=== PATIENT | male | born 1965 | race Caucasian/White ===

== ENCOUNTER → 2017-10-05 09:55 | Outpatient (CLI) | payer MEDICARE, MEDICAID, SELFPAY ==
[2017-10-05 10:22] LABS: Absolute Lymphocyte Count 0.88 X10^3/ul (0.83-4.51); Absolute Neutrophil Count 2.2 X10^3/uL (2.0-7.7); Basophil# 0.04 X10^3/uL; Basophil% 1.1 % (0-1); Eosinophil# 0.09 X10^3/uL; Eosinophils% 2.5 % (0-5); Hematocrit 43.4 % (40-54); Hemoglobin 14.8 g/dl (13.0-16.5); Lymphocyte # 0.88 X10^3/ul (4.0); Lymphocyte % 24.4 % (19-41); Mean Corp Hgb Conc 34.1 g/gl (32-36); Mean Corpuscular Hgb 30.1 pg (27.0-32.0); Mean Corpuscular Volume 88.4 fL (80-94); Mean Platelet Vol. 11.2 fl (6.2-12.0); Monocyte# 0.35 X10^3/uL; Monocyte% 9.7 % (0-10); Neutrophil # 2.24 X10^3/uL (2.7-7.7); Platelet Count 135 K/mm3 (150-450); RBC Distribution Width SD 44.4 fl (35.1-43.9); Red Blood Count 4.91 M/mm3 (4.6-6.2); White Blood Count 3.6 K/mm3 (4.4-11.0)
[2017-10-05 10:24] LABS: POSITIVE COUNT NO; POSITIVE DIFFERENTIAL NO; POSITIVE MORPHOLOGY NO
== END ==
PROVIDERS: Family Provider Family Medicine; PCP Family Medicine; Visit Provider Psychiatry & Neurology Child & Adolescent Psychiatry
DX: F84.0 Autistic disorder (principal); F71 Moderate intellectual disabilities; F91.9 Conduct disorder, unspecified
CPT/HCPCS: 36415; 85025

== ENCOUNTER 2017-11-06 08:41 | Outpatient (RCR) | payer MEDICARE, MEDICAID, SELFPAY ==
[2017-11-06 09:45] LABS: Absolute Lymphocyte Count 1.09 X10^3/ul (0.83-4.51); Absolute Neutrophil Count 2.7 X10^3/uL (2.0-7.7); Basophil# 0.07 X10^3/uL; Basophil% 1.6 % (0-1); Eosinophil# 0.07 X10^3/uL; Eosinophils% 1.6 % (0-5); Hematocrit 45.7 % (40-54); Hemoglobin 15.3 g/dl (13.0-16.5); Lymphocyte # 1.09 X10^3/ul (4.0); Lymphocyte % 24.7 % (19-41); Mean Corp Hgb Conc 33.5 g/gl (32-36); Mean Corpuscular Hgb 29.8 pg (27.0-32.0); Mean Corpuscular Volume 88.9 fL (80-94); Mean Platelet Vol. 11.3 fl (6.2-12.0); Monocyte% 11.3 % (0-10); Neutrophil # 2.67 X10^3/uL (2.7-7.7); Neutrophil % 60.6 % (47-70); Platelet Count 146 K/mm3 (150-450); RBC Distribution Width CV 14.4 % (11.6-14.6); RBC Distribution Width SD 46.1 fl (35.1-43.9); Red Blood Count 5.14 M/mm3 (4.6-6.2); White Blood Count 4.4 K/mm3 (4.4-11.0)
[2017-11-06 09:46] LABS: POSITIVE COUNT NO; POSITIVE DIFFERENTIAL NO; POSITIVE MORPHOLOGY NO
== END 2017-11-06 09:00 | disposition home or self-care (01) ==
LOC: LAB 08:41
PROVIDERS: Family Provider Family Medicine; PCP Family Medicine; Visit Provider Psychiatry & Neurology Child & Adolescent Psychiatry
DX: Z51.81 Encounter for therapeutic drug level monitoring (principal); F84.0 Autistic disorder
CPT/HCPCS: 36415; 85025

== ENCOUNTER 2017-12-10 14:07 | Outpatient (RCR) | payer MEDICARE, MEDICAID, SELFPAY ==
[2017-12-10 14:42] LABS: Absolute Lymphocyte Count 1.29 X10^3/ul (0.83-4.51); Absolute Neutrophil Count 2.8 X10^3/uL (2.0-7.7); Basophil# 0.02 X10^3/uL; Basophil% 0.4 % (0-1); Eosinophil# 0.05 X10^3/uL; Eosinophils% 1.1 % (0-5); Hematocrit 45.2 % (40-54); Lymphocyte # 1.29 X10^3/ul (4.0); Lymphocyte % 28.5 % (19-41); Mean Corp Hgb Conc 33.2 g/gl (32-36); Mean Corpuscular Hgb 29.9 pg (27.0-32.0); Mean Platelet Vol. 10.6 fl (6.2-12.0); Monocyte# 0.34 X10^3/uL; Monocyte% 7.5 % (0-10); Neutrophil # 2.81 X10^3/uL (2.7-7.7); Neutrophil % 62.3 % (47-70); Platelet Count 176 K/mm3 (150-450); RBC Distribution Width SD 45.6 fl (35.1-43.9); Red Blood Count 5.02 M/mm3 (4.6-6.2); White Blood Count 4.5 K/mm3 (4.4-11.0)
[2017-12-10 14:43] LABS: POSITIVE COUNT NO; POSITIVE DIFFERENTIAL NO; POSITIVE MORPHOLOGY NO
[2017-12-10 15:06] LABS: AST(SGOT) 38 U/L (15-37); Alanine Aminotransfer ALT/SGPT 94 U/L (16-61); Albumin, Serum 3.9 g/dL (3.2-5.0); Alkaline Phosphatase 132 U/L (45-117); Anion Gap 5 (5-15); BUN 16 mg/dL (7-18); BUN/Creat Ratio 17.3 RATIO (10-20); Calcium,Total 9.1 mg/dL (8.5-10.1); Chloride 101 mmol/L (98-107); Creatinine, Serum 0.93 mg/dL (0.70-1.30); EST Glomerular Filtration Rate 91 mL/min (>60); Est Glom Filt Rate - Afr Amer 110 mL/min (>60); Glucose 105 mg/dL (74-106); Potassium 4.1 mmol/L (3.5-5.1); Protein, Total 7.9 g/dL (6.4-8.2); Sodium Level 140 mmol/L (136-145); Valproic Acid (Depakene) Level 43 ug/mL (50-100)
== END 2017-12-10 15:00 | disposition home or self-care (01) ==
LOC: LAB 14:07
PROVIDERS: Family Provider Family Medicine; PCP Family Medicine; Visit Provider Psychiatry & Neurology Child & Adolescent Psychiatry
DX: Z51.81 Encounter for therapeutic drug level monitoring (principal); F84.0 Autistic disorder
CPT/HCPCS: 36415; 80053; 80164; 85025

== ENCOUNTER 2018-01-14 15:32 | Outpatient (RCR) | payer MEDICARE, MEDICAID, SELFPAY ==
[2018-01-14 16:12] LABS: Absolute Neutrophil Count 3.3 X10^3/uL (2.0-7.7); Basophil# 0.05 X10^3/uL; Basophil% 0.9 % (0-1); Eosinophil# 0.12 X10^3/uL; Eosinophils% 2.2 % (0-5); Hematocrit 43.8 % (40-54); Hemoglobin 14.5 g/dl (13.0-16.5); Lymphocyte % 25.7 % (19-41); Mean Corp Hgb Conc 33.1 g/gl (32-36); Mean Corpuscular Hgb 29.4 pg (27.0-32.0); Mean Corpuscular Volume 88.8 fL (80-94); Mean Platelet Vol. 10.7 fl (6.2-12.0); Monocyte# 0.62 X10^3/uL; Monocyte% 11.4 % (0-10); Neutrophil # 3.25 X10^3/uL (2.7-7.7); Neutrophil % 59.6 % (47-70); POSITIVE COUNT NO; POSITIVE DIFFERENTIAL NO; POSITIVE MORPHOLOGY NO; Platelet Count 155 K/mm3 (150-450); RBC Distribution Width CV 13.7 % (11.6-14.6); RBC Distribution Width SD 44.6 fl (35.1-43.9); Red Blood Count 4.93 M/mm3 (4.6-6.2); White Blood Count 5.5 K/mm3 (4.4-11.0)
== END 2018-01-14 16:00 | disposition home or self-care (01) ==
LOC: LAB 15:32
PROVIDERS: Family Provider Family Medicine; PCP Family Medicine; Visit Provider Psychiatry & Neurology Child & Adolescent Psychiatry
DX: F84.0 Autistic disorder (principal); Z51.81 Encounter for therapeutic drug level monitoring
CPT/HCPCS: 36415; 85025

== ENCOUNTER 2018-02-08 09:04 | Outpatient (RCR) | payer MEDICARE, MEDICAID, SELFPAY ==
[2018-02-08 10:50] LABS: Absolute Lymphocyte Count 0.56 X10^3/ul (0.83-4.51); Basophil# 0.02 X10^3/uL; Basophil% 0.2 % (0-1); Eosinophil# 0.04 X10^3/uL; Eosinophils% 0.3 % (0-5); Hematocrit 44.4 % (40-54); Hemoglobin 15.2 g/dl (13.0-16.5); Lymphocyte # 0.56 X10^3/ul (4.0); Lymphocyte % 4.5 % (19-41); Mean Corp Hgb Conc 34.2 g/gl (32-36); Mean Corpuscular Hgb 29.7 pg (27.0-32.0); Mean Corpuscular Volume 86.9 fL (80-94); Mean Platelet Vol. 11.3 fl (6.2-12.0); Monocyte# 0.79 X10^3/uL; Monocyte% 6.4 % (0-10); Neutrophil % 88.4 % (47-70); Platelet Count 163 K/mm3 (150-450); RBC Distribution Width CV 13.4 % (11.6-14.6); RBC Distribution Width SD 42.2 fl (35.1-43.9); Red Blood Count 5.11 M/mm3 (4.6-6.2); White Blood Count 12.4 K/mm3 (4.4-11.0)
[2018-02-08 10:56] LABS: Differential Indicated SCAN CRITERIA MET; POSITIVE COUNT NO; POSITIVE DIFFERENTIAL YES; POSITIVE MORPHOLOGY NO
== END 2018-02-08 10:00 | disposition home or self-care (01) ==
LOC: LAB 09:04
PROVIDERS: Family Provider Family Medicine; PCP Family Medicine; Visit Provider Psychiatry & Neurology Child & Adolescent Psychiatry
DX: F84.0 Autistic disorder (principal); F91.9 Conduct disorder, unspecified; F71 Moderate intellectual disabilities; Z51.81 Encounter for therapeutic drug level monitoring
CPT/HCPCS: 36415; 85025

== ENCOUNTER 2018-03-15 08:01 | Outpatient (RCR) | payer MEDICARE, MEDICAID, SELFPAY ==
[2018-03-15 09:19] LABS: Absolute Lymphocyte Count 1.01 X10^3/ul (0.83-4.51); Absolute Neutrophil Count 3.8 X10^3/uL (2.0-7.7); Basophil# 0.03 X10^3/uL; Basophil% 0.6 % (0-1); Eosinophil# 0.14 X10^3/uL; Eosinophils% 2.6 % (0-5); Hematocrit 44.5 % (40-54); Hemoglobin 14.8 g/dl (13.0-16.5); Lymphocyte # 1.01 X10^3/ul (4.0); Lymphocyte % 18.7 % (19-41); Mean Corp Hgb Conc 33.3 g/gl (32-36); Mean Corpuscular Hgb 29.3 pg (27.0-32.0); Mean Corpuscular Volume 88.1 fL (80-94); Mean Platelet Vol. 10.6 fl (6.2-12.0); Monocyte# 0.43 X10^3/uL; Monocyte% 7.9 % (0-10); Neutrophil # 3.79 X10^3/uL (2.7-7.7); Platelet Count 143 K/mm3 (150-450); RBC Distribution Width CV 13.7 % (11.6-14.6); RBC Distribution Width SD 43.8 fl (35.1-43.9); Red Blood Count 5.05 M/mm3 (4.6-6.2); White Blood Count 5.4 K/mm3 (4.4-11.0)
[2018-03-15 09:20] LABS: POSITIVE COUNT NO; POSITIVE DIFFERENTIAL NO; POSITIVE MORPHOLOGY NO
[2018-03-15 09:49] LABS: Valproic Acid (Depakene) Level 39 ug/mL (50-100)
[2018-03-15 09:50] LABS: ALB/GLOB Ratio 0.9 RATIO (0.9-2.4); AST(SGOT) 23 U/L (15-37); Alanine Aminotransfer ALT/SGPT 30 U/L (16-61); Albumin, Serum 3.7 g/dL (3.2-5.0); Alkaline Phosphatase 124 U/L (45-117); Anion Gap 5 (5-15); BUN 12 mg/dL (7-18); BUN/Creat Ratio 15.5 RATIO (10-20); Calcium,Total 8.8 mg/dL (8.5-10.1); Chloride 104 mmol/L (98-107); Creatinine, Serum 0.78 mg/dL (0.70-1.30); EST Glomerular Filtration Rate 112 mL/min (>60); Est Glom Filt Rate - Afr Amer 135 mL/min (>60); Globulin 4.2 g/dL (2.2-4.2); Glucose 83 mg/dL (74-106); Potassium 4.2 mmol/L (3.5-5.1); Protein, Total 7.9 g/dL (6.4-8.2); Sodium Level 139 mmol/L (136-145)
== END 2018-03-15 09:00 | disposition home or self-care (01) ==
LOC: LAB 08:01
PROVIDERS: Family Provider Family Medicine; PCP Family Medicine; Visit Provider Psychiatry & Neurology Child & Adolescent Psychiatry
DX: F84.0 Autistic disorder (principal); F91.9 Conduct disorder, unspecified; F71 Moderate intellectual disabilities; Z51.81 Encounter for therapeutic drug level monitoring
CPT/HCPCS: 36415; 80053; 80164; 85025

== ENCOUNTER 2018-04-03 12:24 | Outpatient (RCR) | payer MEDICARE, MEDICAID, SELFPAY ==
[2018-04-03 13:09] LABS: Absolute Lymphocyte Count 1.02 X10^3/ul (0.83-4.51); Absolute Neutrophil Count 2.7 X10^3/uL (2.0-7.7); Basophil# 0.02 X10^3/uL; Basophil% 0.5 % (0-1); Eosinophil# 0.12 X10^3/uL; Eosinophils% 2.8 % (0-5); Hematocrit 43.4 % (40-54); Lymphocyte # 1.02 X10^3/ul (4.0); Lymphocyte % 24.1 % (19-41); Mean Corp Hgb Conc 32.3 g/gl (32-36); Mean Corpuscular Hgb 28.9 pg (27.0-32.0); Mean Corpuscular Volume 89.5 fL (80-94); Mean Platelet Vol. 10.1 fl (6.2-12.0); Monocyte# 0.34 X10^3/uL; Neutrophil # 2.73 X10^3/uL (2.7-7.7); Neutrophil % 64.4 % (47-70); Platelet Count 145 K/mm3 (150-450); RBC Distribution Width CV 13.8 % (11.6-14.6); RBC Distribution Width SD 45.4 fl (35.1-43.9); Red Blood Count 4.85 M/mm3 (4.6-6.2); White Blood Count 4.2 K/mm3 (4.4-11.0)
[2018-04-03 13:11] LABS: POSITIVE COUNT NO; POSITIVE DIFFERENTIAL NO; POSITIVE MORPHOLOGY NO
== END 2018-04-03 13:30 | disposition home or self-care (01) ==
LOC: LAB 12:24
PROVIDERS: Family Provider Family Medicine; PCP Family Medicine; Visit Provider Psychiatry & Neurology Child & Adolescent Psychiatry
DX: F84.0 Autistic disorder (principal); F91.9 Conduct disorder, unspecified; F71 Moderate intellectual disabilities
CPT/HCPCS: 36415; 85025

== ENCOUNTER 2018-04-25 13:58 | Outpatient (RCR) | payer MEDICARE, MEDICAID, SELFPAY | END 2018-04-25 15:00 | disposition home or self-care (01) | LOC: LAB 13:58 | PROVIDERS: Family Provider Family Medicine; PCP Family Medicine; Visit Provider Psychiatry & Neurology Child & Adolescent Psychiatry | DX: F84.0 Autistic disorder (principal); F91.9 Conduct disorder, unspecified; F71 Moderate intellectual disabilities ==

== ENCOUNTER 2018-04-25 13:58 | Outpatient (RCR) | payer MEDICARE, MEDICAID, SELFPAY ==
[2018-04-25 15:09] LABS: Absolute Lymphocyte Count 1.09 X10^3/ul (0.83-4.51); Absolute Neutrophil Count 3.7 X10^3/uL (2.0-7.7); Basophil# 0.02 X10^3/uL; Basophil% 0.4 % (0-1); Eosinophil# 0.11 X10^3/uL; Eosinophils% 2.1 % (0-5); Hemoglobin 14.9 g/dl (13.0-16.5); Lymphocyte # 1.09 X10^3/ul (4.0); Mean Corp Hgb Conc 32.4 g/gl (32-36); Mean Corpuscular Hgb 29.2 pg (27.0-32.0); Mean Corpuscular Volume 90.2 fL (80-94); Mean Platelet Vol. 10.5 fl (6.2-12.0); Monocyte# 0.21 X10^3/uL; Monocyte% 4.1 % (0-10); Neutrophil # 3.74 X10^3/uL (2.7-7.7); Neutrophil % 72.2 % (47-70); Platelet Count 170 K/mm3 (150-450); RBC Distribution Width CV 13.7 % (11.6-14.6); RBC Distribution Width SD 44.8 fl (35.1-43.9); White Blood Count 5.2 K/mm3 (4.4-11.0)
[2018-04-25 15:14] LABS: POSITIVE COUNT NO; POSITIVE DIFFERENTIAL NO; POSITIVE MORPHOLOGY NO
[2018-04-25 15:38] LABS: Valproic Acid (Depakene) Level 52 ug/mL (50-100)
[2018-04-25 15:44] LABS: ALB/GLOB Ratio 0.9 RATIO (0.9-2.4); AST(SGOT) 19 U/L (15-37); Alanine Aminotransfer ALT/SGPT 24 U/L (16-61); Albumin, Serum 3.9 g/dL (3.2-5.0); Alkaline Phosphatase 138 U/L (45-117); Anion Gap 7 (5-15); BUN 12 mg/dL (7-18); BUN/Creat Ratio 13.8 RATIO (10-20); Calcium,Total 9.3 mg/dL (8.5-10.1); Chloride 100 mmol/L (98-107); Creatinine, Serum 0.87 mg/dL (0.70-1.30); EST Glomerular Filtration Rate 98 mL/min (>60); Est Glom Filt Rate - Afr Amer 118 mL/min (>60); Globulin 4.3 g/dL (2.2-4.2); Glucose 112 mg/dL (74-106); Protein, Total 8.2 g/dL (6.4-8.2); Sodium Level 142 mmol/L (136-145)
[2018-05-17 09:51] LABS: Absolute Lymphocyte Count 1.08 X10^3/ul (0.83-4.51); Absolute Neutrophil Count 2.6 X10^3/uL (2.0-7.7); Basophil# 0.04 X10^3/uL; Basophil% 0.9 % (0-1); Eosinophil# 0.12 X10^3/uL; Eosinophils% 2.7 % (0-5); Hematocrit 44.3 % (40-54); Hemoglobin 14.8 g/dl (13.0-16.5); Lymphocyte # 1.08 X10^3/ul (4.0); Lymphocyte % 24.4 % (19-41); Mean Corp Hgb Conc 33.4 g/gl (32-36); Mean Corpuscular Hgb 29.8 pg (27.0-32.0); Mean Corpuscular Volume 89.1 fL (80-94); Monocyte# 0.53 X10^3/uL; Neutrophil # 2.64 X10^3/uL (2.7-7.7); Neutrophil % 59.8 % (47-70); Platelet Count 142 K/mm3 (150-450); RBC Distribution Width SD 45.7 fl (35.1-43.9); Red Blood Count 4.97 M/mm3 (4.6-6.2); White Blood Count 4.4 K/mm3 (4.4-11.0)
[2018-05-17 09:52] LABS: POSITIVE COUNT NO; POSITIVE DIFFERENTIAL NO; POSITIVE MORPHOLOGY NO
[2018-05-17 10:15] LABS: AST(SGOT) 20 U/L (15-37); Alanine Aminotransfer ALT/SGPT 24 U/L (16-61); Albumin, Serum 3.8 g/dL (3.2-5.0); Alkaline Phosphatase 122 U/L (45-117); Anion Gap 6 (5-15); BUN 7 mg/dL (7-18); BUN/Creat Ratio 7.9 RATIO (10-20); Calcium,Total 8.7 mg/dL (8.5-10.1); Chloride 104 mmol/L (98-107); Creatinine, Serum 0.89 mg/dL (0.70-1.30); EST Glomerular Filtration Rate 95 mL/min (>60); Est Glom Filt Rate - Afr Amer 115 mL/min (>60); Glucose 94 mg/dL (74-106); Potassium 4.2 mmol/L (3.5-5.1); Protein, Total 7.8 g/dL (6.4-8.2); Sodium Level 142 mmol/L (136-145)
[2018-05-17 10:20] LABS: Valproic Acid (Depakene) Level 41 ug/mL (50-100)
== END 2018-08-23 09:48 | disposition home or self-care (01) ==
LOC: LAB 13:58
PROVIDERS: Family Provider Family Medicine; PCP Family Medicine; Visit Provider Psychiatry & Neurology Child & Adolescent Psychiatry
DX: F84.0 Autistic disorder (principal); F91.9 Conduct disorder, unspecified; F71 Moderate intellectual disabilities
CPT/HCPCS: 36415; 80053; 80164; 85025

== ENCOUNTER 2018-06-20 14:03 | Outpatient (RCR) | payer MEDICARE, MEDICAID, SELFPAY ==
[2018-05-30 11:09] LABS: Absolute Lymphocyte Count 0.83 X10^3/ul (0.83-4.51); Absolute Neutrophil Count 4.1 X10^3/uL (2.0-7.7); Basophil# 0.01 X10^3/uL; Basophil% 0.2 % (0-1); Eosinophil# 0.09 X10^3/uL; Eosinophils% 1.6 % (0-5); Hematocrit 45.2 % (40-54); Hemoglobin 14.8 g/dl (13.0-16.5); Lymphocyte # 0.83 X10^3/ul (4.0); Mean Corp Hgb Conc 32.7 g/gl (32-36); Mean Corpuscular Hgb 29.2 pg (27.0-32.0); Mean Corpuscular Volume 89.2 fL (80-94); Mean Platelet Vol. 10.7 fl (6.2-12.0); Monocyte# 0.53 X10^3/uL; Monocyte% 9.5 % (0-10); Neutrophil # 4.07 X10^3/uL (2.7-7.7); Neutrophil % 73.3 % (47-70); Platelet Count 160 K/mm3 (150-450); RBC Distribution Width CV 13.8 % (11.6-14.6); RBC Distribution Width SD 44.9 fl (35.1-43.9); Red Blood Count 5.07 M/mm3 (4.6-6.2); White Blood Count 5.6 K/mm3 (4.4-11.0)
[2018-05-30 11:14] LABS: POSITIVE COUNT NO; POSITIVE DIFFERENTIAL NO; POSITIVE MORPHOLOGY NO
[2018-06-20 15:24] LABS: Absolute Lymphocyte Count 1.01 X10^3/ul (0.83-4.51); Absolute Neutrophil Count 2.7 X10^3/uL (2.0-7.7); Basophil# 0.03 X10^3/uL; Basophil% 0.7 % (0-1); Eosinophil# 0.09 X10^3/uL; Eosinophils% 2.1 % (0-5); Hematocrit 43.6 % (40-54); Hemoglobin 14.8 g/dl (13.0-16.5); Lymphocyte # 1.01 X10^3/ul (4.0); Lymphocyte % 23.3 % (19-41); Mean Corp Hgb Conc 33.9 g/gl (32-36); Mean Corpuscular Hgb 29.7 pg (27.0-32.0); Mean Corpuscular Volume 87.6 fL (80-94); Mean Platelet Vol. 10.8 fl (6.2-12.0); Monocyte# 0.53 X10^3/uL; Monocyte% 12.2 % (0-10); Neutrophil # 2.66 X10^3/uL (2.7-7.7); Neutrophil % 61.5 % (47-70); POSITIVE COUNT NO; POSITIVE DIFFERENTIAL NO; POSITIVE MORPHOLOGY NO; Platelet Count 171 K/mm3 (150-450); RBC Distribution Width CV 13.8 % (11.6-14.6); RBC Distribution Width SD 43.9 fl (35.1-43.9); Red Blood Count 4.98 M/mm3 (4.6-6.2); White Blood Count 4.3 K/mm3 (4.4-11.0)
[2018-06-20 16:04] LABS: Valproic Acid (Depakene) Level 58 ug/mL (50-100)
[2018-06-20 16:06] LABS: AST(SGOT) 19 U/L (15-37); Alanine Aminotransfer ALT/SGPT 25 U/L (16-61); Albumin, Serum 3.8 g/dL (3.2-5.0); Alkaline Phosphatase 144 U/L (45-117); Anion Gap 7 (5-15); BUN 13 mg/dL (7-18); Calcium,Total 8.9 mg/dL (8.5-10.1); Chloride 103 mmol/L (98-107); Creatinine, Serum 0.93 mg/dL (0.70-1.30); EST Glomerular Filtration Rate 90 mL/min (>60); Est Glom Filt Rate - Afr Amer 109 mL/min (>60); Glucose 70 mg/dL (74-106); Potassium 4.3 mmol/L (3.5-5.1); Protein, Total 7.8 g/dL (6.4-8.2); Sodium Level 139 mmol/L (136-145)
== END 2018-06-20 15:00 | disposition home or self-care (01) ==
LOC: LAB 14:03
PROVIDERS: Family Provider Family Medicine; PCP Family Medicine; Visit Provider Psychiatry & Neurology Child & Adolescent Psychiatry
DX: F84.0 Autistic disorder (principal); F91.9 Conduct disorder, unspecified; F71 Moderate intellectual disabilities
CPT/HCPCS: 36415; 80053; 80164; 85025

== ENCOUNTER 2018-07-24 15:29 | Outpatient (RCR) | payer MEDICARE, MEDICAID, SELFPAY ==
[2018-07-09 09:32] LABS: Hematocrit 48.5 % (40-54); Hemoglobin 16.2 g/dl (13.0-16.5); Mean Corp Hgb Conc 33.4 g/gl (32-36); Mean Corpuscular Hgb 29.6 pg (27.0-32.0); Mean Corpuscular Volume 88.5 fL (80-94); Platelet Count 139 K/mm3 (150-450); RBC Distribution Width CV 13.6 % (11.6-14.6); RBC Distribution Width SD 44.2 fl (35.1-43.9); Red Blood Count 5.48 M/mm3 (4.6-6.2); White Blood Count 5.5 K/mm3 (4.4-11.0)
[2018-07-09 09:34] LABS: Scan Indicated on CBC? Y/N NO
[2018-07-09 10:06] LABS: Valproic Acid (Depakene) Level 38 ug/mL (50-100)
[2018-07-09 10:09] LABS: AST(SGOT) 15 U/L (15-37); Alanine Aminotransfer ALT/SGPT 26 U/L (16-61); Albumin, Serum 3.9 g/dL (3.2-5.0); Alkaline Phosphatase 147 U/L (45-117); Anion Gap 8 (5-15); BUN 10 mg/dL (7-18); BUN/Creat Ratio 10.9 RATIO (10-20); Calcium,Total 9.1 mg/dL (8.5-10.1); Chloride 100 mmol/L (98-107); Creatinine, Serum 0.92 mg/dL (0.70-1.30); EST Glomerular Filtration Rate 92 mL/min (>60); Est Glom Filt Rate - Afr Amer 111 mL/min (>60); Globulin 3.9 g/dL (2.2-4.2); Glucose 97 mg/dL (74-106); Potassium 4.2 mmol/L (3.5-5.1); Protein, Total 7.8 g/dL (6.4-8.2); Sodium Level 139 mmol/L (136-145)
[2018-07-12 16:32] LABS: Absolute Lymphocyte Count 1.23 X10^3/ul (0.83-4.51); Absolute Neutrophil Count 3.1 X10^3/uL (2.0-7.7); Basophil# 0.03 X10^3/uL; Basophil% 0.6 % (0-1); Eosinophil# 0.11 X10^3/uL; Eosinophils% 2.2 % (0-5); Hematocrit 43.8 % (40-54); Hemoglobin 14.6 g/dl (13.0-16.5); Lymphocyte # 1.23 X10^3/ul (4.0); Lymphocyte % 24.3 % (19-41); Mean Corp Hgb Conc 33.3 g/gl (32-36); Mean Corpuscular Hgb 29.7 pg (27.0-32.0); Mean Corpuscular Volume 89.2 fL (80-94); Monocyte# 0.54 X10^3/uL; Monocyte% 10.7 % (0-10); Neutrophil # 3.14 X10^3/uL (2.7-7.7); Platelet Count 155 K/mm3 (150-450); RBC Distribution Width CV 13.7 % (11.6-14.6); RBC Distribution Width SD 44.2 fl (35.1-43.9); Red Blood Count 4.91 M/mm3 (4.6-6.2); White Blood Count 5.1 K/mm3 (4.4-11.0)
[2018-07-12 16:44] LABS: POSITIVE COUNT NO; POSITIVE DIFFERENTIAL NO; POSITIVE MORPHOLOGY NO
[2018-07-24 17:18] LABS: Absolute Lymphocyte Count 1.01 X10^3/ul (0.83-4.51); Absolute Neutrophil Count 2.8 X10^3/uL (2.0-7.7); Basophil# 0.03 X10^3/uL; Basophil% 0.7 % (0-1); Eosinophils% 2.2 % (0-5); Hemoglobin 14.5 g/dl (13.0-16.5); Lymphocyte # 1.01 X10^3/ul (4.0); Lymphocyte % 22.7 % (19-41); Mean Corp Hgb Conc 33.7 g/gl (32-36); Mean Corpuscular Volume 88.8 fL (80-94); Monocyte# 0.47 X10^3/uL; Monocyte% 10.6 % (0-10); Neutrophil # 2.83 X10^3/uL (2.7-7.7); Neutrophil % 63.6 % (47-70); POSITIVE COUNT NO; POSITIVE DIFFERENTIAL NO; POSITIVE MORPHOLOGY NO; Platelet Count 152 K/mm3 (150-450); RBC Distribution Width CV 13.7 % (11.6-14.6); Red Blood Count 4.84 M/mm3 (4.6-6.2); White Blood Count 4.5 K/mm3 (4.4-11.0)
[2018-07-24 17:48] LABS: BUN 11 mg/dL (7-18); Creatinine, Serum 0.82 mg/dL (0.70-1.30); EST Glomerular Filtration Rate 104 mL/min (>60); Glucose 92 mg/dL (74-106)
[2018-07-24 17:49] LABS: AST(SGOT) 21 U/L (15-37); Alanine Aminotransfer ALT/SGPT 27 U/L (16-61); Albumin, Serum 3.8 g/dL (3.2-5.0); Alkaline Phosphatase 133 U/L (45-117); Anion Gap 10 (5-15); BUN/Creat Ratio 13.3 RATIO (10-20); Calcium,Total 8.4 mg/dL (8.5-10.1); Chloride 104 mmol/L (98-107); Est Glom Filt Rate - Afr Amer 125 mL/min (>60); Globulin 3.7 g/dL (2.2-4.2); Potassium 4.1 mmol/L (3.5-5.1); Protein, Total 7.5 g/dL (6.4-8.2); Sodium Level 142 mmol/L (136-145)
== END 2018-07-24 17:00 | disposition home or self-care (01) ==
LOC: LAB 15:29
PROVIDERS: Family Provider Family Medicine; PCP Family Medicine; Referring Provider Psychiatry & Neurology Child & Adolescent Psychiatry; Visit Provider Psychiatry & Neurology Child & Adolescent Psychiatry
DX: F84.0 Autistic disorder (principal); F91.9 Conduct disorder, unspecified; F71 Moderate intellectual disabilities
CPT/HCPCS: 36415; 80053; 80164; 85025; 85027

== ENCOUNTER 2018-08-20 08:17 | Outpatient (RCR) | payer MEDICARE, MEDICAID, SELFPAY ==
[2018-07-30 09:50] LABS: Absolute Lymphocyte Count 1.02 X10^3/ul (0.83-4.51); Absolute Neutrophil Count 3.4 X10^3/uL (2.0-7.7); Basophil# 0.03 X10^3/uL; Basophil% 0.6 % (0-1); Eosinophil# 0.14 X10^3/uL; Eosinophils% 2.8 % (0-5); Hematocrit 45.1 % (40-54); Lymphocyte # 1.02 X10^3/ul (4.0); Lymphocyte % 20.2 % (19-41); Mean Corp Hgb Conc 33.3 g/gl (32-36); Mean Corpuscular Hgb 29.4 pg (27.0-32.0); Mean Corpuscular Volume 88.3 fL (80-94); Mean Platelet Vol. 11.1 fl (6.2-12.0); Monocyte# 0.49 X10^3/uL; Monocyte% 9.7 % (0-10); Neutrophil # 3.36 X10^3/uL (2.7-7.7); Neutrophil % 66.5 % (47-70); Platelet Count 153 K/mm3 (150-450); RBC Distribution Width CV 13.8 % (11.6-14.6); RBC Distribution Width SD 44.2 fl (35.1-43.9); Red Blood Count 5.11 M/mm3 (4.6-6.2); White Blood Count 5.1 K/mm3 (4.4-11.0)
[2018-07-30 09:52] LABS: POSITIVE COUNT NO; POSITIVE DIFFERENTIAL NO; POSITIVE MORPHOLOGY NO
[2018-07-30 10:24] LABS: Valproic Acid (Depakene) Level 44 ug/mL (50-100)
[2018-07-30 10:30] LABS: ALB/GLOB Ratio 0.9 RATIO (0.9-2.4); AST(SGOT) 18 U/L (15-37); Alanine Aminotransfer ALT/SGPT 26 U/L (16-61); Albumin, Serum 3.7 g/dL (3.2-5.0); Alkaline Phosphatase 127 U/L (45-117); Anion Gap 8 (5-15); BUN 10 mg/dL (7-18); BUN/Creat Ratio 11.8 RATIO (10-20); Calcium,Total 8.8 mg/dL (8.5-10.1); Chloride 103 mmol/L (98-107); Creatinine, Serum 0.85 mg/dL (0.70-1.30); EST Glomerular Filtration Rate 100 mL/min (>60); Est Glom Filt Rate - Afr Amer 121 mL/min (>60); Globulin 3.9 g/dL (2.2-4.2); Glucose 95 mg/dL (74-106); Potassium 4.3 mmol/L (3.5-5.1); Protein, Total 7.6 g/dL (6.4-8.2); Sodium Level 141 mmol/L (136-145)
[2018-08-07 09:40] LABS: Absolute Lymphocyte Count 1.08 X10^3/ul (0.83-4.51); Absolute Neutrophil Count 2.8 X10^3/uL (2.0-7.7); Basophil# 0.04 X10^3/uL; Basophil% 0.9 % (0-1); Eosinophils% 2.2 % (0-5); Hematocrit 45.3 % (40-54); Lymphocyte # 1.08 X10^3/ul (4.0); Mean Corp Hgb Conc 33.1 g/gl (32-36); Mean Corpuscular Hgb 29.4 pg (27.0-32.0); Mean Corpuscular Volume 88.6 fL (80-94); Mean Platelet Vol. 11.2 fl (6.2-12.0); Monocyte# 0.49 X10^3/uL; Monocyte% 10.9 % (0-10); Neutrophil # 2.77 X10^3/uL (2.7-7.7); Neutrophil % 61.6 % (47-70); Platelet Count 153 K/mm3 (150-450); RBC Distribution Width CV 13.7 % (11.6-14.6); RBC Distribution Width SD 44.2 fl (35.1-43.9); Red Blood Count 5.11 M/mm3 (4.6-6.2); White Blood Count 4.5 K/mm3 (4.4-11.0)
[2018-08-07 09:43] LABS: POSITIVE COUNT NO; POSITIVE DIFFERENTIAL NO; POSITIVE MORPHOLOGY NO
[2018-08-20 11:37] LABS: Absolute Lymphocyte Count 1.02 X10^3/ul (0.83-4.51); Absolute Neutrophil Count 3.5 X10^3/uL (2.0-7.7); Basophil# 0.03 X10^3/uL; Basophil% 0.6 % (0-1); Eosinophil# 0.14 X10^3/uL; Eosinophils% 2.7 % (0-5); Hematocrit 45.3 % (40-54); Hemoglobin 15.1 g/dl (13.0-16.5); Lymphocyte # 1.02 X10^3/ul (4.0); Mean Corp Hgb Conc 33.3 g/gl (32-36); Mean Corpuscular Hgb 29.4 pg (27.0-32.0); Mean Corpuscular Volume 88.3 fL (80-94); Mean Platelet Vol. 10.6 fl (6.2-12.0); Monocyte# 0.45 X10^3/uL; Monocyte% 8.8 % (0-10); Neutrophil # 3.46 X10^3/uL (2.7-7.7); Neutrophil % 67.7 % (47-70); Platelet Count 130 K/mm3 (150-450); RBC Distribution Width CV 13.6 % (11.6-14.6); RBC Distribution Width SD 43.8 fl (35.1-43.9); Red Blood Count 5.13 M/mm3 (4.6-6.2); White Blood Count 5.1 K/mm3 (4.4-11.0)
[2018-08-20 11:38] LABS: POSITIVE COUNT NO; POSITIVE DIFFERENTIAL NO; POSITIVE MORPHOLOGY NO
[2018-08-20 11:58] LABS: Valproic Acid (Depakene) Level 65 ug/mL (50-100)
[2018-08-20 12:03] LABS: ALB/GLOB Ratio 0.9 RATIO (0.9-2.4); AST(SGOT) 20 U/L (15-37); Alanine Aminotransfer ALT/SGPT 31 U/L (16-61); Albumin, Serum 3.7 g/dL (3.2-5.0); Alkaline Phosphatase 135 U/L (45-117); Anion Gap 8 (5-15); BUN 15 mg/dL (7-18); BUN/Creat Ratio 14.9 RATIO (10-20); Chloride 102 mmol/L (98-107); Creatinine, Serum 1.01 mg/dL (0.70-1.30); EST Glomerular Filtration Rate 82 mL/min (>60); Est Glom Filt Rate - Afr Amer 99 mL/min (>60); Globulin 3.9 g/dL (2.2-4.2); Glucose 104 mg/dL (74-106); Potassium 4.4 mmol/L (3.5-5.1); Protein, Total 7.6 g/dL (6.4-8.2); Sodium Level 143 mmol/L (136-145)
== END 2018-08-23 09:49 | disposition home or self-care (01) ==
LOC: LAB 08:17
PROVIDERS: Family Provider Family Medicine; PCP Family Medicine; Referring Provider Psychiatry & Neurology Child & Adolescent Psychiatry; Visit Provider Psychiatry & Neurology Child & Adolescent Psychiatry
DX: F84.0 Autistic disorder (principal); F91.9 Conduct disorder, unspecified; F71 Moderate intellectual disabilities
CPT/HCPCS: 36415; 80053; 80164; 85025

== ENCOUNTER 2018-09-16 15:36 | Outpatient (RCR) | payer MEDICARE, MEDICAID, SELFPAY ==
[2018-09-04 09:36] LABS: Absolute Lymphocyte Count 0.96 X10^3/ul (0.83-4.51); Absolute Neutrophil Count 2.5 X10^3/uL (2.0-7.7); Basophil# 0.03 X10^3/uL; Basophil% 0.7 % (0-1); Eosinophil# 0.08 X10^3/uL; Hematocrit 45.8 % (40-54); Hemoglobin 15.6 g/dl (13.0-16.5); Lymphocyte # 0.96 X10^3/ul (4.0); Lymphocyte % 23.9 % (19-41); Mean Corp Hgb Conc 34.1 g/gl (32-36); Mean Corpuscular Hgb 29.7 pg (27.0-32.0); Mean Corpuscular Volume 87.2 fL (80-94); Mean Platelet Vol. 10.9 fl (6.2-12.0); Monocyte# 0.46 X10^3/uL; Monocyte% 11.4 % (0-10); Neutrophil # 2.47 X10^3/uL (2.7-7.7); Neutrophil % 61.5 % (47-70); POSITIVE COUNT NO; POSITIVE DIFFERENTIAL NO; POSITIVE MORPHOLOGY NO; Platelet Count 138 K/mm3 (150-450); RBC Distribution Width CV 13.7 % (11.6-14.6); RBC Distribution Width SD 43.9 fl (35.1-43.9); Red Blood Count 5.25 M/mm3 (4.6-6.2)
[2018-09-16 16:17] LABS: Absolute Lymphocyte Count 0.33 X10^3/ul (0.83-4.51); Absolute Neutrophil Count 6.2 X10^3/uL (2.0-7.7); Basophil# 0.01 X10^3/uL; Basophil% 0.1 % (0-1); Eosinophil# 0.03 X10^3/uL; Eosinophils% 0.4 % (0-5); Hematocrit 48.3 % (40-54); Hemoglobin 15.9 g/dl (13.0-16.5); Lymphocyte # 0.33 X10^3/ul (4.0); Lymphocyte % 4.6 % (19-41); Mean Corp Hgb Conc 32.9 g/gl (32-36); Mean Corpuscular Hgb 29.4 pg (27.0-32.0); Mean Corpuscular Volume 89.4 fL (80-94); Mean Platelet Vol. 10.6 fl (6.2-12.0); Monocyte% 8.4 % (0-10); Neutrophil # 6.15 X10^3/uL (2.7-7.7); Neutrophil % 86.4 % (47-70); Platelet Count 146 K/mm3 (150-450); RBC Distribution Width SD 45.7 fl (35.1-43.9); White Blood Count 7.1 K/mm3 (4.4-11.0)
[2018-09-16 16:24] LABS: Differential Indicated SCAN CRITERIA MET; POSITIVE COUNT NO; POSITIVE DIFFERENTIAL YES; POSITIVE MORPHOLOGY NO
[2018-09-16 18:01] LABS: Platelet Estimate ADEQUATE (ADEQ); Red Cell Morphology NORM C+C NORMAL (NORM C&C)
--- OUTSIDE RECORDS SUMMARY | 2018-10-21 03:34 | XMS RPT_ITS ---
:1965 Author Organization OH[employer] Support Name Relationship Address Phone D Unavailable Unavailable Unavailable HOITINK, RUCHI/SANDRA Unavailable [address] + [place] [address] MEGGAN, LINDA Unavailable [address] + [address] [place] [address] D Unavailable Unavailable Unavailable HOITINK, RUCHI/SANDRA Unavailable [address] + [place] [address] MEGGAN, LINDA Unavailable [phone] [address] [place] [address] D Unavailable Unavailable Unavailable HOITINK, RUCHI/SANDRA Unavailable [address] + [place] [address] MEGGAN, LINDA Unavailable [address] + [address] [place] [address] D Unavailable Unavailable Unavailable HOITINK, RUCHI/SANDRA Unavailable [phone] [place] [address] MEGGAN, LINDA Unavailable [phone] [address] [place] [address] D Unavailable Unavailable Unavailable HOITINK, RUCHI/SANDRA Unavailable [phone] [place] [address] MEGGAN, LINDA Unavailable [phone] [address] [place] [address] D Unavailable Unavailable Unavailable HOITINK, RUCHI/SANDRA Unavailable [address] + [place] [address] MEGGAN, LINDA Unavailable [phone] [address] [place] [address] D Unavailable Unavailable Unavailable HOITINK, RUCHI/SANDRA Unavailable [address] + [place] [address] MEGGAN, LINDA Unavailable [address] + [address] [place] [address] D Unavailable Unavailable Unavailable HOITINK, RUCHI/SANDRA Unavailable [address] + [place] [address] MEGGAN, LINDA Unavailable [address] + [address] [place] [address] D Unavailable Unavailable Unavailable HOITINK, RUCHI/SANDRA Unavailable [address] + [place] [address] MEGGAN, LINDA Unavailable [address] + [address] [place] [address] D Unavailable Unavailable Unavailable HOITINK, RUCHI/SANDRA Unavailable [address] + [place] [address] MEGGAN, LINDA Unavailable [address] + [address] [place] [address] D Unavailable Unavailable Unavailable HOITINK, RUCHI/SANDRA Unavailable [address] + [place] [address] MEGGAN, LINDA Unavailable [address] + [address] [place] [address] D Unavailable Unavailable Unavailable HOITINK, RUCHI/SANDRA Unavailable [address] + [place] [address] MEGGAN, LINDA Unavailable [address] + [address] [place] [address] D Unavailable Unavailable Unavailable HOITINK, RUCHI/SANDRA Unavailable [address] + [place] [address] MEGGAN, LINDA Unavailable [address] + [address] [place] [address] D Unavailable Unavailable Unavailable HOITINK, RUCHI/SANDRA Unavailable [address] + [place] [address] MEGGAN, LINDA Unavailable [address] + [address] [place] [address] D Unavailable Unavailable Unavailable HOITINK, RUCHI/SANDRA Unavailable [address] + [place] [address] LINDA BRODERICK Unavailable [address] + [address] [place] [address] Care Team Providers Name Role Phone MISHA ESTRADA Attending Unavailable ELDERBROCKMISHA Attending Unavailable Solaro, Nelly Attending Unavailable Solaro, Nelly Referring Unavailable Elderbrock, Misha Primary Care Unavailable Solaro, Nelly Attending Unavailable Elderbrock, Misha Primary Care Unavailable Solaro, Nelly Referring Unavailable Solaro, Nelly Attending Unavailable Solaro, Nelly Referring Unavailable Elderbrock, Misha Primary Care Unavailable Solaro, Nelly Attending Unavailable Elderbrock, Misha Primary Care Unavailable Solaro, Nelly Attending Unavailable Solaro, Nelly Referring Unavailable Elderbrock, Misha Primary Care Unavailable Solaro, Nelly Attending Unavailable Solaro, Nelly Referring Unavailable Elderbrock, Misha Primary Care Unavailable Solaro, Nelly Attending Unavailable Solaro, Nelly Referring Unavailable Elderbrock, Misha Primary Care Unavailable Solaro, Nelly Attending Unavailable Solaro, Nelly Referring Unavailable Elderbrock, Misha Primary Care Unavailable Solaro, Nelly Attending Unavailable Solaro, Nelly Referring Unavailable Elderbrock, Misha Primary Care Unavailable Solaro, Nelly Attending Unavailable Elderbrock, Misha Primary Care Unavailable Solaro, Nelly Attending Unavailable Elderbrock, [place] Primary Care Unavailable Solaro, Nelly Referring Unavailable Solaro, Nelly Attending Unavailable Solaro, Nelly Referring Unavailable Elderbrock, [place] Primary Care Unavailable Solaro, Nelly Attending Unavailable Solaro, Nelly Referring Unavailable Elderbrock, Misha Primary Care Unavailable Solaro, Nelly Attending Unavailable Solaro, Nelly Referring Unavailable Elderbrock, [place] Primary Care Unavailable Solaro, Nelly Attending Unavailable Solaro, Nelly Referring Unavailable Elderbrock, [place] Primary Care Unavailable PROBLEMS PROBLEMS DATE TYPE CONDITION / CODE ATTENDING STATUS SOURCE 10/15/2018 Unknown F84.0 - Autistic Solaro, Nelly Active [place] disorder / Community F84.0(ICD-10) Hospital Repository 09/23/2018 Unknown F71 - Moderate Solaro, Nelly Active [place] intellectual Community disabilities / Hospital F71(ICD-10) Repository 09/23/2018 Unknown 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, Nelly Active [place] disorder, Community unspecified / Hospital F91.9(ICD-10) Repository 12/24/2017 Unknown Z51.81 - Encounter Nelly Bazan Active [place] for therapeutic [facility]ly [facility] drug level Hospital monitoring / Repository Z51.81(ICD-10) PROCEDURES PROCEDURES No Procedure Records FoundRESULTS RESULTS CBC W/DIFF, AUTOMATED Collected: 10/15/2018 Status: F Source: [place] 11:13 AM [facility] REPOSITORY TYPE CODE TESTS RESULT OUT OF RANGE REFERENCE UNITS LAB L100.1000 4.4-11.0 K/mm3 Low WBC 3.7 LAB L100.1200 4.6-6.2 M/mm3 Normal RBC 5.06 LAB L100.1300 13.0-16.5 g/dl Normal HGB 14.8 LAB L100.1400 40-54 % Normal HCT 44.7 LAB L100.1500 80-94 fL Normal MCV 88.3 LAB L100.1600 27.0-32.0 pg Normal MCH 29.2 LAB L100.1700 32-36 g/gl Normal MCHC 33.1 LAB L100.1810 11.6-14.6 % Normal RDW CV 14.4 LAB L100.1820 35.1-43.9 fl High RDW SD 46.3 LAB L100.1900 150-450 K/mm3 Low PLT 138 LAB L100.2000 6.2-12.0 fl Normal MPV 11.4 LAB L100.2100 47-70 % Normal NEUT% 52.4 LAB L100.2200 19-41 % Normal LY% 32.9 LAB L100.2300 0-10 % High MONO% 11.1 LAB L100.2400 0-5 % Normal EO% 2.2 LAB L100.2500 0-1 % High BASO% 1.1 LAB L100.2550 0.0-0.9 % Normal IM GRAN % 0.300 Result Comment: IG% - Immature Granulocytes (promyelocytes, myelocytes and metamyelocytes) > 1% indicates that a LEFT SHIFT is Present. LAB L100.2620 2.0-7.7 X10 3/uL Low Absolute Neut 1.9 LAB L100.2720 0.83-4.51 X10 3/ul Normal Absolute Lymph 1.21 Performed By: #### L100.0100 #### [facility] [address] [place], [address] CBC W/DIFF, AUTOMATED Collected: 10/01/2018 Status: F Source: [place] 3:38 PM [facility] REPOSITORY TYPE CODE TESTS RESULT OUT OF RANGE REFERENCE UNITS LAB L100.1000 4.4-11.0 K/mm3 Normal WBC 5.5 LAB L100.1200 4.6-6.2 M/mm3 Normal RBC 4.81 LAB L100.1300 13.0-16.5 g/dl Normal HGB 14.1 LAB L100.1400 40-54 % Normal HCT 43.2 LAB L100.1500 80-94 fL Normal MCV 89.8 LAB L100.1600 27.0-32.0 pg Normal MCH 29.3 LAB L100.1700 32-36 g/gl Normal MCHC 32.6 LAB L100.1810 11.6-14.6 % Normal RDW CV 14.0 LAB L100.1820 35.1-43.9 fl High RDW SD 45.9 LAB L100.1900 150-450 K/mm3 Normal PLT 152 LAB L100.2000 6.2-12.0 fl Normal MPV 10.5 LAB L100.2100 47-70 % Normal NEUT% 59.5 LAB L100.2200 19-41 % Normal LY% 28.9 LAB L100.2300 0-10 % Normal MONO% 9.3 LAB L100.2400 0-5 % Normal EO% 1.6 LAB L100.2500 0-1 % Normal BASO% 0.5 LAB L100.2550 0.0-0.9 % Normal IM GRAN % 0.200 Result Comment: IG% - Immature Granulocytes (promyelocytes, myelocytes and metamyelocytes) > 1% indicates that a LEFT SHIFT is Present. LAB L100.2620 2.0-7.7 X10 3/uL Normal Absolute Neut 3.3 LAB L100.2720 0.83-4.51 X10 3/ul Normal Absolute Lymph 1.59 Performed By: #### L100.0100 #### [facility] [place], [address] COMPREHENSIVE METABOLIC Collected: 09/27/2018 Status: F Source: [place] [facility] 8:53 AM [facility] REPOSITORY TYPE CODE TESTS RESULT OUT OF RANGE REFERENCE UNITS LAB L501.0100 74-106 mg/dL Normal GLU 95 Result Comment: Please note revised GLUCOSE reference range effective 2017. LAB L501.1000 7-18 mg/dL Normal BUN 13 LAB L501.1100 0.70-1.30 mg/dL Normal CREAT,SERUM 0.88 Result Comment: The validity of the calculated GFR AND GFRAA in patients over 70 years has not been determined. Clinical correlation is essential. LAB L501.1110 >60 mL/min Normal EST GFR 96 Result Comment: Non- GFR Calc LAB L501.1115 >60 mL/min Normal EST GFR - AA 117 Result Comment: GFR Calc LAB L501.1300 10-20 RATIO Normal BUN/CRE 14.8 LAB L501.1500 6.4-8.2 g/dL T Normal PROT 7.7 LAB L501.1800 3.2-5.0 g/dL Normal ALB 3.9 LAB L501.1950 2.2-4.2 g/dL Normal GLOB 3.8 LAB L501.2000 0.9-2.4 RATIO Normal A/G 1.0 LAB L501.2200 8.5-10.1 mg/dL CA Normal 9.0 LAB L501.4100 15-37 U/L Normal AST 25 LAB L501.4305 45-117 U/L High ALK P 136 LAB L501.4405 16-61 U/L Normal ALT 41 LAB L501.4600 0.20-1.00 mg/dL T Normal BILI 0.30 LAB L501.5300 136-145 mmol/L NA Normal 141 LAB L501.5600 3.5-5.1 mmol/L K Normal 4.2 LAB L501.5900 98-107 mmol/L CL Normal 104 LAB L501.6100 21.0-32.0 mmol/L Normal CO2 30.0 LAB L501.6200 5-15 Normal GAP 7 Performed By: #### L500.4050 #### [facility] [address] [place], [address] VALPROIC ACID Collected: 09/27/2018 Status: F Source: [place] (MAXIME) LEVEL 8:53 AM [facility] REPOSITORY TYPE CODE TESTS RESULT OUT OF REFERENCE UNITS RANGE LAB L501.8100 50-100 ug/mL Low VALPROIC ACID 46 Performed By: #### L501.8100 #### [facility] [address] [place], [place], [address] CBC W/DIFF, AUTOMATED Collected: 09/16/2018 Status: F Source: [place] 3:38 PM [facility] REPOSITORY TYPE CODE TESTS RESULT OUT OF RANGE REFERENCE UNITS LAB L100.1000 4.4-11.0 K/mm3 Normal WBC 7.1 LAB L100.1200 4.6-6.2 M/mm3 Normal RBC 5.40 LAB L100.1300 13.0-16.5 g/dl Normal HGB 15.9 LAB L100.1400 40-54 % Normal HCT 48.3 LAB L100.1500 80-94 fL Normal MCV 89.4 LAB L100.1600 27.0-32.0 pg Normal MCH 29.4 LAB L100.1700 32-36 g/gl Normal MCHC 32.9 LAB L100.1810 11.6-14.6 % Normal RDW CV 14.0 LAB L100.1820 35.1-43.9 fl High RDW SD 45.7 LAB L100.1900 150-450 K/mm3 Low PLT 146 LAB L100.2000 6.2-12.0 fl Normal MPV 10.6 LAB L100.2100 47-70 % High NEUT% 86.4 LAB L100.2200 19-41 % Low LY% 4.6 LAB L100.2300 0-10 % Normal MONO% 8.4 LAB L100.2400 0-5 % Normal EO% 0.4 LAB L100.2500 0-1 % Normal BASO% 0.1 LAB L100.2550 0.0-0.9 % Normal IM GRAN % 0.100 Result Comment: IG% - Immature Granulocytes (promyelocytes, myelocytes and metamyelocytes) > 1% indicates that a LEFT SHIFT is Present. LAB L100.2620 2.0-7.7 X10 3/uL Normal Absolute Neut 6.2 LAB L100.2720 0.83-4.51 X10 3/ul Low Absolute Lymph 0.33 LAB L100.4500 SMEAR Normal COMMENT Result Comment: LYMPHOPENIA NOTED LAB L100.5500 ADEQ Normal PLT ADEQUATE EST LAB L100.7000 NORM C AND NORMAL C Normal RED NORM C+C CELL MORPH Performed By: #### L100.0100 #### [facility] [address] [facility] [place], [address] CBC W/DIFF, AUTOMATED Collected: 09/04/2018 Status: F Source: [place] 8:40 AM [facility] REPOSITORY TYPE CODE TESTS RESULT OUT OF RANGE REFERENCE UNITS LAB L100.1000 4.4-11.0 K/mm3 Low WBC 4.0 LAB L100.1200 4.6-6.2 M/mm3 Normal RBC 5.25 LAB L100.1300 13.0-16.5 g/dl Normal HGB 15.6 LAB L100.1400 40-54 % Normal HCT 45.8 LAB L100.1500 80-94 fL Normal MCV 87.2 LAB L100.1600 27.0-32.0 pg Normal MCH 29.7 LAB L100.1700 32-36 g/gl Normal MCHC 34.1 LAB L100.1810 11.6-14.6 % Normal RDW CV 13.7 LAB L100.1820 35.1-43.9 fl Normal RDW SD 43.9 LAB L100.1900 150-450 K/mm3 Low PLT 138 LAB L100.2000 6.2-12.0 fl Normal MPV 10.9 LAB L100.2100 47-70 % Normal NEUT% 61.5 LAB L100.2200 19-41 % Normal LY% 23.9 LAB L100.2300 0-10 % High MONO% 11.4 LAB L100.2400 0-5 % Normal EO% 2.0 LAB L100.2500 0-1 % Normal BASO% 0.7 LAB L100.2550 0.0-0.9 % Normal IM GRAN % 0.500 Result Comment: IG% - Immature Granulocytes (promyelocytes, myelocytes and metamyelocytes) > 1% indicates that a LEFT SHIFT is Present. LAB L100.2620 2.0-7.7 X10 3/uL Normal Absolute Neut 2.5 LAB L100.2720 0.83-4.51 X10 3/ul Normal Absolute Lymph 0.96 Performed By: #### L100.0100 #### [facility] [address] [facility], [place], [address] CBC W/DIFF, AUTOMATED Collected: 08/20/2018 Status: F Source: [place] 8:35 AM [facility] REPOSITORY TYPE CODE TESTS RESULT OUT OF RANGE REFERENCE UNITS LAB L100.1000 4.4-11.0 K/mm3 Normal WBC 5.1 LAB L100.1200 4.6-6.2 M/mm3 Normal RBC 5.13 LAB L100.1300 13.0-16.5 g/dl Normal HGB 15.1 LAB L100.1400 40-54 % Normal HCT 45.3 LAB L100.1500 80-94 fL Normal MCV 88.3 LAB L100.1600 27.0-32.0 pg Normal MCH 29.4 LAB L100.1700 32-36 g/gl Normal MCHC 33.3 LAB L100.1810 11.6-14.6 % Normal RDW CV 13.6 LAB L100.1820 35.1-43.9 fl Normal RDW SD 43.8 LAB L100.1900 150-450 K/mm3 Low PLT 130 LAB L100.2000 6.2-12.0 fl Normal MPV 10.6 LAB L100.2100 47-70 % Normal NEUT% 67.7 LAB L100.2200 19-41 % Normal LY% 20.0 LAB L100.2300 0-10 % Normal MONO% 8.8 LAB L100.2400 0-5 % Normal EO% 2.7 LAB L100.2500 0-1 % Normal BASO% 0.6 LAB L100.2550 0.0-0.9 % Normal IM GRAN % 0.200 Result Comment: IG% - Immature Granulocytes (promyelocytes, myelocytes and metamyelocytes) > 1% indicates that a LEFT SHIFT is Present. LAB L100.2620 2.0-7.7 X10 3/uL Normal Absolute Neut 3.5 LAB L100.2720 0.83-4.51 X10 3/ul Normal Absolute Lymph 1.02 Performed By: #### L100.0100 #### [facility] [address] [facility] [place], [address] VALPROIC ACID Collected: 08/20/2018 Status: F Source: [place] ([place]KEN[place]) LEVEL 8:35 AM [facility] REPOSITORY TYPE CODE TESTS RESULT OUT OF RANGE REFERENCE UNITS LAB L501.8100 50-100 ug/mL Normal VALPROIC ACID 65 Performed By: #### L501.8100 #### [facility] [place], [address] COMPREHENSIVE METABOLIC Collected: 08/20/2018 Status: F Source: [place] [facility] 8:35 AM [facility] REPOSITORY Order Comment: NEED NEW ORDER YET TYPE CODE TESTS RESULT OUT OF RANGE REFERENCE UNITS LAB L501.0100 74-106 mg/dL Normal GLU 104 Result Comment: Fasting Glucose result from 100 to 125 mg/dL suggests IMPAIRED HOMEOSTASIS per A.D.A. criteria. Please note revised GLUCOSE reference range effective 2017. LAB L501.1000 7-18 mg/dL Normal BUN 15 LAB L501.1100 0.70-1.30 mg/dL Normal CREAT,SERUM 1.01 Result Comment: The validity of the calculated GFR AND GFRAA in patients over 70 years has not been determined. Clinical correlation is essential. LAB L501.1110 >60 mL/min Normal EST GFR 82 Result Comment: Non- GFR Calc LAB L501.1115 >60 mL/min Normal EST GFR - AA 99 Result Comment: GFR Calc LAB L501.1300 10-20 RATIO Normal BUN/CRE 14.9 LAB L501.1500 6.4-8.2 g/dL T Normal PROT 7.6 LAB L501.1800 3.2-5.0 g/dL Normal ALB 3.7 LAB L501.1950 2.2-4.2 g/dL Normal GLOB 3.9 LAB L501.2000 0.9-2.4 RATIO Normal A/G 0.9 LAB L501.2200 8.5-10.1 mg/dL CA Normal 9.0 LAB L501.4100 15-37 U/L Normal AST 20 LAB L501.4305 45-117 U/L High ALK P 135 LAB L501.4405 16-61 U/L Normal ALT 31 LAB L501.4600 0.20-1.00 mg/dL T Normal BILI 0.30 LAB L501.5300 136-145 mmol/L NA Normal 143 LAB L501.5600 3.5-5.1 mmol/L K Normal 4.4 LAB L501.5900 98-107 mmol/L CL Normal 102 LAB L501.6100 21.0-32.0 mmol/L High CO2 33.0 LAB L501.6200 5-15 Normal GAP 8 Performed By: #### L500.4050 #### [facility] [place], [address] CBC W/DIFF, AUTOMATED Collected: 08/07/2018 Status: F Source: [place] 7:56 AM [facility] REPOSITORY TYPE CODE TESTS RESULT OUT OF RANGE REFERENCE UNITS LAB L100.1000 4.4-11.0 K/mm3 Normal WBC 4.5 LAB L100.1200 4.6-6.2 M/mm3 Normal RBC 5.11 LAB L100.1300 13.0-16.5 g/dl Normal HGB 15.0 LAB L100.1400 40-54 % Normal HCT 45.3 LAB L100.1500 80-94 fL Normal MCV 88.6 LAB L100.1600 27.0-32.0 pg Normal MCH 29.4 LAB L100.1700 32-36 g/gl Normal MCHC 33.1 LAB L100.1810 11.6-14.6 % Normal RDW CV 13.7 LAB L100.1820 35.1-43.9 fl High RDW SD 44.2 LAB L100.1900 150-450 K/mm3 Normal PLT 153 LAB L100.2000 6.2-12.0 fl Normal MPV 11.2 LAB L100.2100 47-70 % Normal NEUT% 61.6 LAB L100.2200 19-41 % Normal LY% 24.0 LAB L100.2300 0-10 % High MONO% 10.9 LAB L100.2400 0-5 % Normal EO% 2.2 LAB L100.2500 0-1 % Normal BASO% 0.9 LAB L100.2550 0.0-0.9 % Normal IM GRAN % 0.400 Result Comment: IG% - Immature Granulocytes (promyelocytes, myelocytes and metamyelocytes) > 1% indicates that a LEFT SHIFT is Present. LAB L100.2620 2.0-7.7 X10 3/uL Normal Absolute Neut 2.8 LAB L100.2720 0.83-4.51 X10 3/ul Normal Absolute Lymph 1.08 Performed By: #### L100.0100 #### [facility] [address] [facility] [place], [place], [id number] CBC W/DIFF, AUTOMATED Collected: 07/30/2018 Status: F Source: [place] 8:58 AM [facility] REPOSITORY TYPE CODE TESTS RESULT OUT OF RANGE REFERENCE UNITS LAB L100.1000 4.4-11.0 K/mm3 Normal WBC 5.1 LAB L100.1200 4.6-6.2 M/mm3 Normal RBC 5.11 LAB L100.1300 13.0-16.5 g/dl Normal HGB 15.0 LAB L100.1400 40-54 % Normal HCT 45.1 LAB L100.1500 80-94 fL Normal MCV 88.3 LAB L100.1600 27.0-32.0 pg Normal MCH 29.4 LAB L100.1700 32-36 g/gl Normal MCHC 33.3 LAB L100.1810 11.6-14.6 % Normal RDW CV 13.8 LAB L100.1820 35.1-43.9 fl High RDW SD 44.2 LAB L100.1900 150-450 K/mm3 Normal PLT 153 LAB L100.2000 6.2-12.0 fl Normal MPV 11.1 LAB L100.2100 47-70 % Normal NEUT% 66.5 LAB L100.2200 19-41 % Normal LY% 20.2 LAB L100.2300 0-10 % Normal MONO% 9.7 LAB L100.2400 0-5 % Normal EO% 2.8 LAB L100.2500 0-1 % Normal BASO% 0.6 LAB L100.2550 0.0-0.9 % Normal IM GRAN % 0.200 Result Comment: IG% - Immature Granulocytes (promyelocytes, myelocytes and metamyelocytes) > 1% indicates that a LEFT SHIFT is Present. LAB L100.2620 2.0-7.7 X10 3/uL Normal Absolute Neut 3.4 LAB L100.2720 0.83-4.51 X10 3/ul Normal Absolute Lymph 1.02 Performed By: #### L100.0100 #### [facility] [address] [place], [address] VALPROIC ACID Collected: 07/30/2018 Status: F Source: [place] ([place]KEN[place]) LEVEL 8:58 AM [facility] REPOSITORY TYPE CODE TESTS RESULT OUT OF REFERENCE UNITS RANGE LAB L501.8100 50-100 ug/mL Low VALPROIC ACID 44 Performed By: #### L501.8100 #### [facility] [address] [place], [address] COMPREHENSIVE METABOLIC Collected: 07/30/2018 Status: F Source: [place] 8:58 AM [facility] REPOSITORY TYPE CODE TESTS RESULT OUT OF RANGE REFERENCE UNITS LAB L501.0100 74-106 mg/dL Normal GLU 95 Result Comment: Please note revised GLUCOSE reference range effective 2017. LAB L501.1000 7-18 mg/dL Normal BUN 10 LAB L501.1100 0.70-1.30 mg/dL Normal CREAT,SERUM 0.85 Result Comment: The validity of the calculated GFR AND GFRAA in patients over 70 years has not been determined. Clinical correlation is essential. LAB L501.1110 >60 mL/min Normal EST GFR 100 Result Comment: Non- GFR Calc LAB L501.1115 >60 mL/min Normal EST GFR - AA 121 Result Comment: GFR Calc LAB L501.1300 10-20 RATIO Normal BUN/CRE 11.8 LAB L501.1500 6.4-8.2 g/dL T Normal PROT 7.6 LAB L501.1800 3.2-5.0 g/dL Normal ALB 3.7 LAB L501.1950 2.2-4.2 g/dL Normal GLOB 3.9 LAB L501.2000 0.9-2.4 RATIO Normal A/G 0.9 LAB L501.2200 8.5-10.1 mg/dL CA Normal 8.8 LAB L501.4100 15-37 U/L Normal AST 18 LAB L501.4305 45-117 U/L High ALK P 127 LAB L501.4405 16-61 U/L Normal ALT 26 LAB L501.4600 0.20-1.00 mg/dL T Normal BILI 0.30 LAB L501.5300 136-145 mmol/L NA Normal 141 LAB L501.5600 3.5-5.1 mmol/L K Normal 4.3 LAB L501.5900 98-107 mmol/L CL Normal 103 LAB L501.6100 21.0-32.0 mmol/L Normal CO2 30.0 LAB L501.6200 5-15 Normal GAP 8 Performed By: #### L500.4050 #### [facility] [place], [address] CBC W/DIFF, AUTOMATED Collected: 07/24/2018 Status: F Source: [place] 3:35 PM [facility] REPOSITORY TYPE CODE TESTS RESULT OUT OF RANGE REFERENCE UNITS LAB L100.1000 4.4-11.0 K/mm3 Normal WBC 4.5 LAB L100.1200 4.6-6.2 M/mm3 Normal RBC 4.84 LAB L100.1300 13.0-16.5 g/dl Normal HGB 14.5 LAB L100.1400 40-54 % Normal HCT 43.0 LAB L100.1500 80-94 fL Normal MCV 88.8 LAB L100.1600 27.0-32.0 pg Normal MCH 30.0 LAB L100.1700 32-36 g/gl Normal MCHC 33.7 LAB L100.1810 11.6-14.6 % Normal RDW CV 13.7 LAB L100.1820 35.1-43.9 fl High RDW SD 44.0 LAB L100.1900 150-450 K/mm3 Normal PLT 152 LAB L100.2000 6.2-12.0 fl Normal MPV 11.0 LAB L100.2100 47-70 % Normal NEUT% 63.6 LAB L100.2200 19-41 % Normal LY% 22.7 LAB L100.2300 0-10 % High MONO% 10.6 LAB L100.2400 0-5 % Normal EO% 2.2 LAB L100.2500 0-1 % Normal BASO% 0.7 LAB L100.2550 0.0-0.9 % Normal IM GRAN % 0.200 Result Comment: IG% - Immature Granulocytes (promyelocytes, myelocytes and metamyelocytes) > 1% indicates that a LEFT SHIFT is Present. LAB L100.2620 2.0-7.7 X10 3/uL Normal Absolute Neut 2.8 LAB L100.2720 0.83-4.51 X10 3/ul Normal Absolute Lymph 1.01 Performed By: #### L100.0100 #### [facility] [address] [place], [place], [address] COMPREHENSIVE METABOLIC Collected: 07/24/2018 Status: F Source: [place] 3:35 PM [facility] REPOSITORY TYPE CODE TESTS RESULT OUT OF RANGE REFERENCE UNITS LAB L501.0100 74-106 mg/dL Normal GLU 92 Result Comment: Please note revised GLUCOSE reference range effective 2017. LAB L501.1000 7-18 mg/dL Normal BUN 11 LAB L501.1100 0.70-1.30 mg/dL Normal CREAT,SERUM 0.82 Result Comment: The validity of the calculated GFR AND GFRAA in patients over 70 years has not been determined. Clinical correlation is essential. LAB L501.1110 >60 mL/min Normal EST GFR 104 Result Comment: Non- GFR Calc LAB L501.1115 >60 mL/min Normal EST GFR - AA 125 Result Comment: GFR Calc LAB L501.1300 10-20 RATIO Normal BUN/CRE 13.3 LAB L501.1500 6.4-8.2 g/dL T Normal PROT 7.5 LAB L501.1800 3.2-5.0 g/dL Normal ALB 3.8 LAB L501.1950 2.2-4.2 g/dL Normal GLOB 3.7 LAB L501.2000 0.9-2.4 RATIO Normal A/G 1.0 LAB L501.2200 8.5-10.1 mg/dL Low CA 8.4 LAB L501.4100 15-37 U/L Normal AST 21 Result Comment: Slight Hemolysis, Result may be falsely increased. LAB L501.4305 45-117 U/L High ALK P 133 LAB L501.4405 16-61 U/L Normal ALT 27 LAB L501.4600 0.20-1.00 mg/dL Normal T BILI 0.30 LAB L501.5300 136-145 mmol/L Normal NA 142 LAB L501.5600 3.5-5.1 mmol/L Normal K 4.1 Result Comment: Slight Hemolysis, Result may be falsely increased. LAB L501.5900 98-107 mmol/L Normal CL 104 LAB L501.6100 21.0-32.0 mmol/L Normal CO2 28.0 LAB L501.6200 5-15 Normal GAP 10 Performed By: #### L500.4050 #### [facility] [place], [address] CBC W/DIFF, AUTOMATED Collected: 07/12/2018 Status: F Source: GARY 3:57 PM [facility] REPOSITORY TYPE CODE TESTS RESULT OUT OF RANGE REFERENCE UNITS LAB L100.1000 4.4-11.0 K/mm3 Normal WBC 5.1 LAB L100.1200 4.6-6.2 M/mm3 Normal RBC 4.91 LAB L100.1300 13.0-16.5 g/dl Normal HGB 14.6 LAB L100.1400 40-54 % Normal HCT 43.8 LAB L100.1500 80-94 fL Normal MCV 89.2 LAB L100.1600 27.0-32.0 pg Normal MCH 29.7 LAB L100.1700 32-36 g/gl Normal MCHC 33.3 LAB L100.1810 11.6-14.6 % Normal RDW CV 13.7 LAB L100.1820 35.1-43.9 fl High RDW SD 44.2 LAB L100.1900 150-450 K/mm3 Normal PLT 155 LAB L100.2000 6.2-12.0 fl Normal MPV 11.0 LAB L100.2100 47-70 % Normal NEUT% 62.0 LAB L100.2200 19-41 % Normal LY% 24.3 LAB L100.2300 0-10 % High MONO% 10.7 LAB L100.2400 0-5 % Normal EO% 2.2 LAB L100.2500 0-1 % Normal BASO% 0.6 LAB L100.2550 0.0-0.9 % Normal IM GRAN % 0.200 Result Comment: IG% - Immature Granulocytes (promyelocytes, myelocytes and metamyelocytes) > 1% indicates that a LEFT SHIFT is Present. LAB L100.2620 2.0-7.7 X10 3/uL Normal Absolute Neut 3.1 LAB L100.2720 0.83-4.51 X10 3/ul Normal Absolute Lymph 1.23 Performed By: #### L100.0100 #### [facility] [address] [place], [place], [address] CBC-COMPLETE BLOOD CNT Collected: 07/09/2018 Status: F Source: [place] NO DIFF 8:40 AM [facility] REPOSITORY TYPE CODE TESTS RESULT OUT OF RANGE REFERENCE UNITS LAB L100.1000 4.4-11.0 K/mm3 Normal WBC 5.5 LAB L100.1200 4.6-6.2 M/mm3 Normal RBC 5.48 LAB L100.1300 13.0-16.5 g/dl Normal HGB 16.2 LAB L100.1400 40-54 % Normal HCT 48.5 LAB L100.1500 80-94 fL Normal MCV 88.5 LAB L100.1600 27.0-32.0 pg Normal MCH 29.6 LAB L100.1700 32-36 g/gl Normal MCHC 33.4 LAB L100.1810 11.6-14.6 % Normal RDW CV 13.6 LAB L100.1820 35.1-43.9 fl High RDW SD 44.2 LAB L100.1900 150-450 K/mm3 Low PLT 139 LAB L100.2000 6.2-12.0 fl Normal MPV 11.0 Performed By: #### L100.0500 #### [facility] [address] [facility] [facility]. [place], [place], [address] VALPROIC ACID Collected: 07/09/2018 Status: F Source: HERIBERTO (DEPAKENE) LEVEL 8:40 AM [facility] REPOSITORY TYPE CODE TESTS RESULT OUT OF REFERENCE UNITS RANGE LAB L501.8100 50-100 ug/mL Low VALPROIC ACID 38 Performed By: #### L501.8100 #### [facility] [address] [place], [place], [address] COMPREHENSIVE METABOLIC Collected: 07/09/2018 Status: F Source: HERIBERTO PROFIL 8:40 AM [facility] REPOSITORY TYPE CODE TESTS RESULT OUT OF RANGE REFERENCE UNITS LAB L501.0100 74-106 mg/dL Normal GLU 97 Result Comment: Please note revised GLUCOSE reference range effective 2017. LAB L501.1000 7-18 mg/dL Normal BUN 10 LAB L501.1100 0.70-1.30 mg/dL Normal CREAT,SERUM 0.92 Result Comment: The validity of the calculated GFR AND GFRAA in patients over 70 years has not been determined. Clinical correlation is essential. LAB L501.1110 >60 mL/min Normal EST GFR 92 Result Comment: Non- GFR Calc LAB L501.1115 >60 mL/min Normal EST GFR - AA 111 Result Comment: GFR Calc LAB L501.1300 10-20 RATIO Normal BUN/CRE 10.9 LAB L501.1500 6.4-8.2 g/dL T Normal PROT 7.8 LAB L501.1800 3.2-5.0 g/dL Normal ALB 3.9 LAB L501.1950 2.2-4.2 g/dL Normal GLOB 3.9 LAB L501.2000 0.9-2.4 RATIO Normal A/G 1.0 LAB L501.2200 8.5-10.1 mg/dL CA Normal 9.1 LAB L501.4100 15-37 U/L Normal AST 15 LAB L501.4305 45-117 U/L High ALK P 147 LAB L501.4405 16-61 U/L Normal ALT 26 LAB L501.4600 0.20-1.00 mg/dL T Normal BILI 0.60 LAB L501.5300 136-145 mmol/L NA Normal 139 LAB L501.5600 3.5-5.1 mmol/L K Normal 4.2 LAB L501.5900 98-107 mmol/L CL Normal 100 LAB L501.6100 21.0-32.0 mmol/L Normal CO2 31.0 LAB L501.6200 5-15 Normal GAP 8 Performed By: #### L500.4050 #### [facility] [address] [place], [address] CBC W/DIFF, AUTOMATED Collected: 06/20/2018 Status: F Source: GARY 2:07 PM [facility] REPOSITORY TYPE CODE TESTS RESULT OUT OF RANGE REFERENCE UNITS LAB L100.1000 4.4-11.0 K/mm3 Low WBC 4.3 LAB L100.1200 4.6-6.2 M/mm3 Normal RBC 4.98 LAB L100.1300 13.0-16.5 g/dl Normal HGB 14.8 LAB L100.1400 40-54 % Normal HCT 43.6 LAB L100.1500 80-94 fL Normal MCV 87.6 LAB L100.1600 27.0-32.0 pg Normal MCH 29.7 LAB L100.1700 32-36 g/gl Normal MCHC 33.9 LAB L100.1810 11.6-14.6 % Normal RDW CV 13.8 LAB L100.1820 35.1-43.9 fl Normal RDW SD 43.9 LAB L100.1900 150-450 K/mm3 Normal PLT 171 LAB L100.2000 6.2-12.0 fl Normal MPV 10.8 LAB L100.2100 47-70 % Normal NEUT% 61.5 LAB L100.2200 19-41 % Normal LY% 23.3 LAB L100.2300 0-10 % High MONO% 12.2 LAB L100.2400 0-5 % Normal EO% 2.1 LAB L100.2500 0-1 % Normal BASO% 0.7 LAB L100.2550 0.0-0.9 % Normal IM GRAN % 0.200 Result Comment: IG% - Immature Granulocytes (promyelocytes, myelocytes and metamyelocytes) > 1% indicates that a LEFT SHIFT is Present. LAB L100.2620 2.0-7.7 X10 3/uL Normal Absolute Neut 2.7 LAB L100.2720 0.83-4.51 X10 3/ul Normal Absolute Lymph 1.01 Performed By: #### L100.0100 #### [facility] [address] [facility] [facility]. [place], [place], [address] VALPROIC ACID Collected: 06/20/2018 Status: F Source: HERIBERTO (DEPAKENE) LEVEL 2:07 PM [facility] REPOSITORY TYPE CODE TESTS RESULT OUT OF RANGE REFERENCE UNITS LAB L501.8100 50-100 ug/mL Normal VALPROIC ACID 58 Performed By: #### L501.8100 #### [facility] [address] [place], [place], [address] COMPREHENSIVE METABOLIC Collected: 06/20/2018 Status: F Source: HERIBERTO PROFIL 2:07 PM [facility] REPOSITORY TYPE CODE TESTS RESULT OUT OF RANGE REFERENCE UNITS LAB L501.0100 74-106 mg/dL Low GLU 70 Result Comment: Please note revised GLUCOSE reference range effective 2017. LAB L501.1000 7-18 mg/dL Normal BUN 13 LAB L501.1100 0.70-1.30 mg/dL Normal CREAT,SERUM 0.93 Result Comment: The validity of the calculated GFR AND GFRAA in patients over 70 years has not been determined. Clinical correlation is essential. LAB L501.1110 >60 mL/min Normal EST GFR 90 Result Comment: Non- GFR Calc LAB L501.1115 >60 mL/min Normal EST GFR - AA 109 Result Comment: GFR Calc LAB L501.1300 10-20 RATIO Normal BUN/CRE 14.0 LAB L501.1500 6.4-8.2 g/dL T Normal PROT 7.8 LAB L501.1800 3.2-5.0 g/dL Normal ALB 3.8 LAB L501.1950 2.2-4.2 g/dL Normal GLOB 4.0 LAB L501.2000 0.9-2.4 RATIO Normal A/G 1.0 LAB L501.2200 8.5-10.1 mg/dL CA Normal 8.9 LAB L501.4100 15-37 U/L Normal AST 19 LAB L501.4305 45-117 U/L High ALK P 144 LAB L501.4405 16-61 U/L Normal ALT 25 LAB L501.4600 0.20-1.00 mg/dL T Normal BILI 0.30 LAB L501.5300 136-145 mmol/L NA Normal 139 LAB L501.5600 3.5-5.1 mmol/L K Normal 4.3 LAB L501.5900 98-107 mmol/L CL Normal 103 LAB L501.6100 21.0-32.0 mmol/L Normal CO2 29.0 LAB L501.6200 5-15 Normal GAP 7 Performed By: #### L500.4050 #### [facility] [address] [place], [address] PROGRESS Observed: 06/13/2018 Status: COMPLETED Source: TIPPO 2:[address] [facility] [place] REPOSITORY HNO ID: [id number] Author: Misha Estrada Service: (none) Author Type: Physician Type: Progress Notes Filed: 06/16/2018 2:37 PM Note Text: Chief Complaint Patient presents with: Chest Pain: x 2 weeks HPI Mango Salazar is a 53 year old male who presents here today for an acute visit. Pt here today with Maricarmen. Chest pain - Ongoing for the last 2 weeks, intermittently. Pain located mid sternal, right side of chest and into right axillary. Denies sob, dizziness, lightheadedness. States he felt sick last night but no N/V. Does have pain with and without palpitating spot. Tylenol given prn, unsure if any real improvement. Pt notes that its worse with lying down but staff says it occurs at anytime, with rest. Pain today rated a 10/10. Past medical history, appointments, medications, allergies reviewed. Previous Medical History PAST MEDICAL HISTORY Diagnosis Date - Autistic disorder, current or active state - Blindness of one eye right - Moderate intellectual disabilities - Other and unspecified hyperlipidemia - Other convulsions - Retention of urine, unspecified - Unspecified pleural effusion Previous Surgical History PAST SURGICAL HISTORY Procedure Laterality Date - COLONOSCOP W/ OR W/O [facility] SPEC 04/14/2015 Colonoscopy - PAST SURGICAL HISTORY OF Right occular implant Family History FAMILY HISTORY Problem Relation Age of Onset - Cancer Father skin - Lipids Mother Patient Allergies ALLERGIES No Known Allergies Current Medications Current Outpatient Prescriptions on File Prior to Visit: VESICARE 10 mg tablet TAKE (1) TABLET BY MOUTH ONCE DAILY. polyethylene glycol 3350 (MIRALAX, GLYCOLAX) 17 gram/dose powder DISSOLVE 1 CAPFUL (17GMS) ONCE DAILY IN 4-8OZ OF WATER/JUICE AND DRINK BY MOUTH doxazosin (CARDURA) 4 mg tablet TAKE (1) TABLET BY MOUTH DAILY AT BEDTIME. fluticasone (FLONASE) 50 mcg/actuation nasal spray INHALE 1 SPRAY INTO EACH NOSTRIL TWICE DAILY SYSTANE, PROPYLENE GLYCOL, 0.4-0.3 % ophthalmic solution PLACE 1 DROP INTO EACH EYE EVERY 12 HOURS NEEDED PEG 400-Propylene Glycol (SYSTANE) 0.4-0.3 % dpet Use 1 Each in both eyes every 12 hours as needed. divalproex DR (DEPAKOTE) 125 mg EC tablet Take 1 tablet by mouth once daily. One tablet daily at 8pm cloZAPine (CLOZARIL) 100 mg tablet Take 1 tablet in the morning, and 2 tablets at bedtime. carbamide peroxide (DEBROX) 6.5 % otic solution instill 4 drops in each ear twice daily x 3 days monthly for wax build up rOPINIRole (REQUIP) 4 mg tablet Take 1 tablet by mouth three times daily. divalproex DR (DEPAKOTE) 250 mg EC tablet Take 250 mg by mouth twice daily. ibuprofen 600 mg tablet Take 1 tablet by mouth every 8 hours as needed for Pain or Fever. diaper,brief,adult,disposable(ATTENDS PULL-ON BRIEFS LARGE) as directed No current facility-administered medications on file prior to visit. Social History Social History Marital status: Single Spouse name: Years of education: Number of children: Social History Main Topics Smoking status: Never Smoker Smokeless tobacco: Never Used Alcohol use: No Drug use: No EXAM: BP 130/84 (BP Site: Left Arm, BP Position: Sitting, BP Cuff Size: Regular Adult) Pulse 68 Temp 36.2 ?C (97.2 ?F) (Tympanic) Resp 20 Wt 97.3 kg (214 lb 9.6 oz) BMI 28.31 kg/m? General Appearance: Well appearing, alert, in no acute distress, well-hydrated, well nourished and Overweight. Lungs: Lungs clear to auscultation. No wheezing, rhonchi, rales. Heart: RRR without murmur, gallop, or rubs. No ectopy. Abdomen: Normal abdominal exam. Denies any pain in stomach . Chest: tenderness localized at right 2nd-3rd costochondral junction Health Maintenance List HEPATITIS C SCREENING due on 2009 LIPID SCREEN due on 04/15/2015 INFLUENZA(1) due on 05/25/2018 COLORECTAL CANCER SCREENING,SEE MODIFIER due on 04/14/2020 DIABETES SCREEN due on 12/10/2020 DTAP,TDAP,TD(3 - Td) due on 10/01/2023 Data reviewed None ASSESSMENT/PLAN: 1. Costochondritis - ICD9: 733.6, ICD10: M94.0 2 weeks of meloxicam, call if not improving - MELOXICAM 15 MG TABLET I agree with the Chief Complaint, ROS, and Past Histories independently gathered by the clinical ict customer support officer and the remaining scribed note accurately describes my personal service to the patient. Follow up prn Misha Estrada MD The documentation for this note was completed by Bianca Brooke Ma acting as scribe for Misha Estrada MD. June 13, 2018 2:27 PM. CNOV Observed: 06/13/2018 Status: COMPLETED Source: TIPPO 2:20 PM [facility] REPOSITORY Office Visit (FAMPWS) MANGO SALAZAR ([id number]) 1965 M Date Time Provider Department 06/13/18 2:20 PM [facility] During your visit today, we recorded the following information about you: Temperature Pulse Respiration Blood pressure 97.2 degrees 68/minute 20/minute 130/84 Weight 97.3 kg Misha Estrada MD 06/16/2018 2:37 PM Signed Chief Complaint Patient presents with: Chest Pain: x 2 weeks HPI Mango Salazar is a 53 year old male who presents here today for an acute visit. Pt here today with Maricarmen. Chest pain - Ongoing for the last 2 weeks, intermittently. Pain located mid sternal, right side of chest and into right axillary. Denies sob, dizziness, lightheadedness. States he felt sick last night but no N/V. Does have pain with and without palpitating spot. Tylenol given prn, unsure if any real improvement. Pt notes that its worse with lying down but staff says it occurs at anytime, with rest. Pain today rated a 10/10. Past medical history, appointments, medications, allergies reviewed. Previous Medical History PAST MEDICAL HISTORY Diagnosis Date - Autistic disorder, current or active state - Blindness of one eye right - Moderate intellectual disabilities - Other and unspecified hyperlipidemia - Other convulsions - Retention of urine, unspecified - Unspecified pleural effusion Previous Surgical History PAST SURGICAL HISTORY Procedure Laterality Date - COLONOSCOP W/ OR W/O [facility] SPEC 04/14/2015 Colonoscopy - PAST SURGICAL HISTORY OF Right occular implant Family History FAMILY HISTORY Problem Relation Age of Onset - Cancer Father skin - Lipids Mother Patient Allergies ALLERGIES No Known Allergies Current Medications Current Outpatient Prescriptions on File Prior to Visit: VESICARE 10 mg tablet TAKE (1) TABLET BY MOUTH ONCE DAILY. polyethylene glycol 3350 (MIRALAX, GLYCOLAX) 17 gram/dose powder DISSOLVE 1 CAPFUL (17GMS) ONCE DAILY IN 4-8OZ OF WATER/JUICE AND DRINK BY MOUTH doxazosin (CARDURA) 4 mg tablet TAKE (1) TABLET BY MOUTH DAILY AT BEDTIME. fluticasone (FLONASE) 50 mcg/actuation nasal spray INHALE 1 SPRAY INTO EACH NOSTRIL TWICE DAILY SYSTANE, PROPYLENE GLYCOL, 0.4-0.3 % ophthalmic solution PLACE 1 DROP INTO EACH EYE EVERY 12 HOURS NEEDED PEG 400-Propylene Glycol (SYSTANE) 0.4-0.3 % dpet Use 1 Each in both eyes every 12 hours as needed. divalproex DR (DEPAKOTE) 125 mg EC tablet Take 1 tablet by mouth once daily. One tablet daily at 8pm cloZAPine (CLOZARIL) 100 mg tablet Take 1 tablet in the morning, and 2 tablets at bedtime. carbamide peroxide (DEBROX) 6.5 % otic solution instill 4 drops in each ear twice daily x 3 days monthly for wax build up rOPINIRole (REQUIP) 4 mg tablet Take 1 tablet by mouth three times daily. divalproex DR (DEPAKOTE) 250 mg EC tablet Take 250 mg by mouth twice daily. ibuprofen 600 mg tablet Take 1 tablet by mouth every 8 hours as needed for Pain or Fever. diaper,brief,adult,disposable(ATTENDS PULL-ON BRIEFS LARGE) as directed No current facility-administered medications on file prior to visit. Social History Social History Marital status: Single Spouse name: Years of education: Number of children: Social History Main Topics Smoking status: Never Smoker Smokeless tobacco: Never Used Alcohol use: No Drug use: No EXAM: BP 130/84 (BP Site: Left Arm, BP Position: Sitting, BP Cuff Size: Regular Adult) Pulse 68 Temp 36.2 ?C (97.2 ?F) (Tympanic) Resp 20 Wt 97.3 kg (214 lb 9.6 oz) BMI 28.31 kg/m? General Appearance: Well appearing, alert, in no acute distress, well-hydrated, well nourished and Overweight. Lungs: Lungs clear to auscultation. No wheezing, rhonchi, rales. Heart: RRR without murmur, gallop, or rubs. No ectopy. Abdomen: Normal abdominal exam. Denies any pain in stomach . Chest: tenderness localized at right 2nd-3rd costochondral junction Health Maintenance List HEPATITIS C SCREENING due on 2009 LIPID SCREEN due on 04/15/2015 INFLUENZA(1) due on 05/25/2018 COLORECTAL CANCER SCREENING,SEE MODIFIER due on 04/14/2020 DIABETES SCREEN due on 12/10/2020 DTAP,TDAP,TD(3 - Td) due on 10/01/2023 Data reviewed None ASSESSMENT/PLAN: 1. Costochondritis - ICD9: 733.6, ICD10: M94.0 2 weeks of meloxicam, call if not improving - MELOXICAM 15 MG TABLET I agree with the Chief Complaint, ROS, and Past Histories independently gathered by the clinical ict customer support officer and the remaining scribed note accurately describes my personal service to the patient. Follow up prn Misha Estrada MD The documentation for this note was completed by Bianca Brooke Ma acting as scribe for Misha Estrada MD. June 13, 2018 2:27 PM. Bianca Brooke Ma 06/13/2018 2:43 PM Signed Start 2 week course of Mobic 15 mg once daily with meals. Can take Tylenol with Mobic if needed, heat and ice. Notify office if no improvement. Referring Provider: SELF [200] Allergies As of Date: 06/13/2018 (No Known Allergies) Date Reviewed: 06/13/2018 Reviewed by: Bianca Brooke Ma - Fully Assessed Reason for Visit: Chest Pain [21] Cmt: x 2 weeks Primary Visit Diagnosis:Costochondritis [M94.0] Order(s):meloxicam (MOBIC) 15 mg tabletTake 1 tablet by mouth once daily. With food.Disp: 15 tabletRfl: 1 Prescriptions as of 06/13/2018 Sig: VESICARE 10 MG TABLET TAKE (1) TABLET BY MOUTH ONCE* POLYETHYLENE GLYCOL 3350 17 G* DISSOLVE 1 CAPFUL (17GMS) ONC* DOXAZOSIN 4 MG TABLET TAKE (1) TABLET BY MOUTH ALISE* FLUTICASONE 50 MCG/ACTUATION * INHALE 1 SPRAY INTO EACH NOST* SYSTANE (PROPYLENE GLYCOL) 0.* PLACE 1 DROP INTO EACH EYE EV* PEG 400-PROPYLENE GLYCOL (PF)* Use 1 Each in both eyes every* DIVALPROEX 125 MG TABLET,JOSE* Take 1 tablet by mouth once d* CLOZAPINE 100 MG TABLET Take 1 tablet in the morning,* CARBAMIDE PEROXIDE 6.5 % EAR * instill 4 drops in each ear t* ROPINIROLE 4 MG TABLET Take 1 tablet by mouth three * DIVALPROEX 250 MG TABLET,JOSE* Take 250 mg by mouth twice da* IBUPROFEN 600 MG TABLET Take 1 tablet by mouth every * * ATTENDS PULL-ON BRIEFS LARGE as directed MELOXICAM 15 MG TABLET Take 1 tablet by mouth once d* Problem List As Of Date 06/13/2018 Noted Resolved Active autistic disorder [F84.0] 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 Unspecified Pleural Effusion [J90] INVALID FOR*02/15/2010 Blind [H54.7] INVALID FOR* Special screening for malignant neoplasms, colo*INVALID FOR* Acquired hammer toe [M20.40] INVALID FOR* Hyperkeratosis [L85.9] INVALID FOR* Pain in toe of right foot [M79.674] INVALID FOR* Acquired dysmorphic toenail [L60.8] INVALID FOR* Other instructions from your clinician: Start 2 week course of Mobic 15 mg once daily with meals. Can take Tylenol with Mobic if needed, heat and ice. Notify office if no improvement. Prescriptions ordered this encounter Disp Refills Start End MELOXICAM 15 MG TABLET 15 t* 1 06/13/2018 Route: ORAL Sig: Take 1 tablet by mouth once daily. With food. Disposition: Return if symptoms worsen or fail to improve. Follow-up and Disposition History Recorded Encounter Status:Closed by MISHA ESTRADA MD on 06/16/18 CBC W/DIFF, AUTOMATED Collected: 05/30/2018 Status: F Source: HERIBERTO 9:04 AM [facility] REPOSITORY TYPE CODE TESTS RESULT OUT OF RANGE REFERENCE UNITS LAB L100.1000 4.4-11.0 K/mm3 Normal WBC 5.6 LAB L100.1200 4.6-6.2 M/mm3 Normal RBC 5.07 LAB L100.1300 13.0-16.5 g/dl Normal HGB 14.8 LAB L100.1400 40-54 % Normal HCT 45.2 LAB L100.1500 80-94 fL Normal MCV 89.2 LAB L100.1600 27.0-32.0 pg Normal MCH 29.2 LAB L100.1700 32-36 g/gl Normal MCHC 32.7 LAB L100.1810 11.6-14.6 % Normal RDW CV 13.8 LAB L100.1820 35.1-43.9 fl High RDW SD 44.9 LAB L100.1900 150-450 K/mm3 Normal PLT 160 LAB L100.2000 6.2-12.0 fl Normal MPV 10.7 LAB L100.2100 47-70 % High NEUT% 73.3 LAB L100.2200 19-41 % Low LY% 15.0 LAB L100.2300 0-10 % Normal MONO% 9.5 LAB L100.2400 0-5 % Normal EO% 1.6 LAB L100.2500 0-1 % Normal BASO% 0.2 LAB L100.2550 0.0-0.9 % Normal IM GRAN % 0.400 Result Comment: IG% - Immature Granulocytes (promyelocytes, myelocytes and metamyelocytes) > 1% indicates that a LEFT SHIFT is Present. LAB L100.2620 2.0-7.7 X10 3/uL Normal Absolute Neut 4.1 LAB L100.2720 0.83-4.51 X10 3/ul Normal Absolute Lymph 0.83 Performed By: #### L100.0100 #### [facility] [address] [place], [place], [address] CBC W/DIFF, AUTOMATED Collected: 05/17/2018 Status: F Source: HERIBERTO 9:13 AM [facility] REPOSITORY TYPE CODE TESTS RESULT OUT OF RANGE REFERENCE UNITS LAB L100.1000 4.4-11.0 K/mm3 Normal WBC 4.4 LAB L100.1200 4.6-6.2 M/mm3 Normal RBC 4.97 LAB L100.1300 13.0-16.5 g/dl Normal HGB 14.8 LAB L100.1400 40-54 % Normal HCT 44.3 LAB L100.1500 80-94 fL Normal MCV 89.1 LAB L100.1600 27.0-32.0 pg Normal MCH 29.8 LAB L100.1700 32-36 g/gl Normal MCHC 33.4 LAB L100.1810 11.6-14.6 % Normal RDW CV 14.0 LAB L100.1820 35.1-43.9 fl High RDW SD 45.7 LAB L100.1900 150-450 K/mm3 Low PLT 142 LAB L100.2000 6.2-12.0 fl Normal MPV 11.0 LAB L100.2100 47-70 % Normal NEUT% 59.8 LAB L100.2200 19-41 % Normal LY% 24.4 LAB L100.2300 0-10 % High MONO% 12.0 LAB L100.2400 0-5 % Normal EO% 2.7 LAB L100.2500 0-1 % Normal BASO% 0.9 LAB L100.2550 0.0-0.9 % Normal IM GRAN % 0.200 Result Comment: IG% - Immature Granulocytes (promyelocytes, myelocytes and metamyelocytes) > 1% indicates that a LEFT SHIFT is Present. LAB L100.2620 2.0-7.7 X10 3/uL Normal Absolute Neut 2.6 LAB L100.2720 0.83-4.51 X10 3/ul Normal Absolute Lymph 1.08 Performed By: #### L100.0100 #### [facility] [address] [place], [address] COMPREHENSIVE METABOLIC Collected: 05/17/2018 Status: F Source: [facility] 9:13 AM [facility] REPOSITORY TYPE CODE TESTS RESULT OUT OF RANGE REFERENCE UNITS LAB L501.0100 74-106 mg/dL Normal GLU 94 Result Comment: Please note revised GLUCOSE reference range effective 2017. LAB L501.1000 7-18 mg/dL Normal BUN 7 LAB L501.1100 0.70-1.30 mg/dL Normal CREAT,SERUM 0.89 Result Comment: The validity of the calculated GFR AND GFRAA in patients over 70 years has not been determined. Clinical correlation is essential. LAB L501.1110 >60 mL/min Normal EST GFR 95 Result Comment: Non- GFR Calc LAB L501.1115 >60 mL/min Normal EST GFR - AA 115 Result Comment: GFR Calc LAB L501.1300 10-20 RATIO Low BUN/CRE 7.9 LAB L501.1500 6.4-8.2 g/dL Normal T PROT 7.8 LAB L501.1800 3.2-5.0 g/dL Normal ALB 3.8 LAB L501.1950 2.2-4.2 g/dL Normal GLOB 4.0 LAB L501.2000 0.9-2.4 RATIO Normal A/G 1.0 LAB L501.2200 8.5-10.1 mg/dL Normal CA 8.7 LAB L501.4100 15-37 U/L Normal AST 20 LAB L501.4305 45-117 U/L High ALK P 122 LAB L501.4405 16-61 U/L Normal ALT 24 LAB L501.4600 0.20-1.00 mg/dL Normal T BILI 0.30 LAB L501.5300 136-145 mmol/L Normal NA 142 LAB L501.5600 3.5-5.1 mmol/L Normal K 4.2 LAB L501.5900 98-107 mmol/L Normal CL 104 LAB L501.6100 21.0-32.0 mmol/L Normal CO2 32.0 LAB L501.6200 5-15 Normal GAP 6 Performed By: #### L500.4050 #### [facility] [address] [place], [place], [address] VALPROIC ACID Collected: 05/17/2018 Status: F Source: GARY (DEPAKENE) LEVEL 9:13 AM [facility] REPOSITORY TYPE CODE TESTS RESULT OUT OF REFERENCE UNITS RANGE LAB L501.8100 50-100 ug/mL Low VALPROIC ACID 41 Performed By: #### L501.8100 #### [facility] [address] [place], [address] CBC W/DIFF, AUTOMATED Collected: 04/25/2018 Status: F Source: HERIBERTO 2:05 PM [facility] REPOSITORY TYPE CODE TESTS RESULT OUT OF RANGE REFERENCE UNITS LAB L100.1000 4.4-11.0 K/mm3 Normal WBC 5.2 LAB L100.1200 4.6-6.2 M/mm3 Normal RBC 5.10 LAB L100.1300 13.0-16.5 g/dl Normal HGB 14.9 LAB L100.1400 40-54 % Normal HCT 46.0 LAB L100.1500 80-94 fL Normal MCV 90.2 LAB L100.1600 27.0-32.0 pg Normal MCH 29.2 LAB L100.1700 32-36 g/gl Normal MCHC 32.4 LAB L100.1810 11.6-14.6 % Normal RDW CV 13.7 LAB L100.1820 35.1-43.9 fl High RDW SD 44.8 LAB L100.1900 150-450 K/mm3 Normal PLT 170 LAB L100.2000 6.2-12.0 fl Normal MPV 10.5 LAB L100.2100 47-70 % High NEUT% 72.2 LAB L100.2200 19-41 % Normal LY% 21.0 LAB L100.2300 0-10 % Normal MONO% 4.1 LAB L100.2400 0-5 % Normal EO% 2.1 LAB L100.2500 0-1 % Normal BASO% 0.4 LAB L100.2550 0.0-0.9 % Normal IM GRAN % 0.200 Result Comment: IG% - Immature Granulocytes (promyelocytes, myelocytes and metamyelocytes) > 1% indicates that a LEFT SHIFT is Present. LAB L100.2620 2.0-7.7 X10 3/uL Normal Absolute Neut 3.7 LAB L100.2720 0.83-4.51 X10 3/ul Normal Absolute Lymph 1.09 Performed By: #### L100.0100 #### [facility] [address] [place], [place], [address] VALPROIC ACID Collected: 04/25/2018 Status: F Source: HERIBERTO (DEPAKENE) LEVEL 2:05 PM [facility] REPOSITORY TYPE CODE TESTS RESULT OUT OF RANGE REFERENCE UNITS LAB L501.8100 50-100 ug/mL Normal VALPROIC ACID 52 Performed By: #### L501.8100 #### [facility] [address] [place], [address] COMPREHENSIVE METABOLIC Collected: 04/25/2018 Status: F Source: HERIBERTO [facility] 2:05 PM [facility] REPOSITORY TYPE CODE TESTS RESULT OUT OF RANGE REFERENCE UNITS LAB L501.0100 74-106 mg/dL High GLU 112 Result Comment: Fasting Glucose result from 100 to 125 mg/dL suggests IMPAIRED HOMEOSTASIS per A.D.A. criteria. Please note revised GLUCOSE reference range effective 2017. LAB L501.1000 7-18 mg/dL Normal BUN 12 LAB L501.1100 0.70-1.30 mg/dL Normal CREAT,SERUM 0.87 Result Comment: The validity of the calculated GFR AND GFRAA in patients over 70 years has not been determined. Clinical correlation is essential. LAB L501.1110 >60 mL/min Normal EST GFR 98 Result Comment: Non- GFR Calc LAB L501.1115 >60 mL/min Normal EST GFR - AA 118 Result Comment: GFR Calc LAB L501.1300 10-20 RATIO Normal BUN/CRE 13.8 LAB L501.1500 6.4-8.2 g/dL T Normal PROT 8.2 LAB L501.1800 3.2-5.0 g/dL Normal ALB 3.9 LAB L501.1950 2.2-4.2 g/dL High GLOB 4.3 LAB L501.2000 0.9-2.4 RATIO Normal A/G 0.9 LAB L501.2200 8.5-10.1 mg/dL CA Normal 9.3 LAB L501.4100 15-37 U/L Normal AST 19 LAB L501.4305 45-117 U/L High ALK P 138 LAB L501.4405 16-61 U/L Normal ALT 24 LAB L501.4600 0.20-1.00 mg/dL T Normal BILI 0.30 LAB L501.5300 136-145 mmol/L NA Normal 142 LAB L501.5600 3.5-5.1 mmol/L K Normal 4.0 LAB L501.5900 98-107 mmol/L CL Normal 100 LAB L501.6100 21.0-32.0 mmol/L High CO2 35.0 LAB L501.6200 5-15 Normal GAP 7 Performed By: #### L500.4050 #### [facility] [place], [address] CNOV Observed: 04/03/2018 Status: COMPLETED Source: TIPPO 2:00 PM [facility] REPOSITORY Office Visit (FAMPWS) MANGO SALAZAR ([id number]) 1965 M Date Time Provider Department 04/03/18 2:00 PM [facility] During your visit today, we recorded the following information about you: Pulse Respiration Blood pressure Weight 84/minute 20/minute 136/84 92.5 kg Misha Estrada MD 04/05/2018 2:38 PM Signed Chief Complaint Patient presents with: Physical: Annual HPI Mango P Ariannacally is a 52 year old male who presents here today for an Annual Physical. Here today with Maricarmen, Coordinator Staff from [facility]. HTN - Checks at facility 1-2 per month with BP ranging from 100-160/70-90. Denies any chest pain, sob or dizziness. Currently on Cardura 4 mg 1 tab po once daily. Diet - Diet is fairly healthy. GI - Increased complaints of GI upset. Occasionally has diarrhea, but denies any blood. Uses Miralax, Pepto Bismol and Mylanta. ENCARNACION - Located on the top of his head and has light sensitivity and sound. Asking for Tylenol more due to headaches, daily basis. Tylenol does help headaches. Psych - Currently on Depakote 250 mg 1 tab po bid and Depakote 125 mg 1 tab po at 8:00 pm, Clozapine 100 mg 1 tab in the and [address] tabs [address] Bazan. Neuro - Follows with Dr. Zuleta. Bladder - Wears depends and currently taking Cardura 4 mg at bedtime and Vesicare 10 mg 1 tab po once daily. Past medical history, appointments, medications, allergies reviewed. Previous Medical History PAST MEDICAL HISTORY Diagnosis Date - Autistic disorder, current or active state - Blindness of one eye right - Moderate intellectual disabilities - Other and unspecified hyperlipidemia - Other convulsions - Retention of urine, unspecified - Unspecified pleural effusion Previous Surgical History PAST SURGICAL HISTORY Procedure Laterality Date - COLONOSCOP W/ OR W/O [facility] SPEC 04/14/2015 Colonoscopy - PAST SURGICAL HISTORY OF Right occular implant Family History FAMILY HISTORY Problem Relation Age of Onset - Cancer Father skin - Lipids Mother Patient Allergies ALLERGIES No Known Allergies Current Medications Current Outpatient Prescriptions on File Prior to Visit: polyethylene glycol 3350 (MIRALAX, GLYCOLAX) 17 gram/dose powder DISSOLVE 1 CAPFUL (17GMS) ONCE DAILY IN 4-8OZ OF WATER/JUICE AND DRINK BY MOUTH VESICARE 10 mg tablet TAKE (1) TABLET BY MOUTH ONCE DAILY. doxazosin (CARDURA) 4 mg tablet TAKE (1) TABLET BY MOUTH DAILY AT BEDTIME. fluticasone (FLONASE) 50 mcg/actuation nasal spray INHALE 1 SPRAY INTO EACH NOSTRIL TWICE DAILY SYSTANE, PROPYLENE GLYCOL, 0.4-0.3 % ophthalmic solution PLACE 1 DROP INTO EACH EYE EVERY 12 HOURS NEEDED PEG 400-Propylene Glycol (SYSTANE) 0.4-0.3 % dpet Use 1 Each in both eyes every 12 hours as needed. divalproex DR (DEPAKOTE) 125 mg EC tablet Take 1 tablet by mouth once daily. One tablet daily at 8pm cloZAPine (CLOZARIL) 100 mg tablet Take 1 tablet in the morning, and 2 tablets at bedtime. carbamide peroxide (DEBROX) 6.5 % otic solution instill 4 drops in each ear twice daily x 3 days monthly for wax build up divalproex DR (DEPAKOTE) 250 mg EC tablet Take 250 mg by mouth twice daily. ibuprofen 600 mg tablet Take 1 tablet by mouth every 8 hours as needed for Pain or Fever. diaper,brief,adult,disposable(ATTENDS PULL-ON BRIEFS LARGE) as directed rOPINIRole (REQUIP) 4 mg tablet Take 1 tablet by mouth three times daily. No current facility-administered medications on file prior to visit. Social History Social History Marital status: Single Spouse name: Years of education: Number of children: Social History Main Topics Smoking status: Never Smoker Smokeless tobacco: Never Used Alcohol use: No Drug use: No EXAM: BP 136/84 (BP Site: Left Arm, BP Position: Sitting, BP Cuff Size: Regular Adult) Pulse 84 Resp 20 Wt 92.5 kg (204 lb) BMI 26.91 kg/m? General Appearance: Well appearing, alert, in no acute distress, well-hydrated, well nourished.. Lungs: Lungs clear to auscultation. No wheezing, rhonchi, rales. Heart: RRR without murmur, gallop, or rubs. No ectopy. Abdomen: Normal abdominal exam, Abdomen soft, non-tender. Bowel sounds normal. No masses, organomegaly. Health Maintenance List HEPATITIS C SCREENING due on 2009 ZOSTER VACCINE (SHINGRIX)(1 of 2) due on 2015 LIPID SCREEN due on 04/15/2015 INFLUENZA(1) due on 05/25/2018 COLORECTAL CANCER SCREENING,SEE MODIFIER due on 04/14/2020 DIABETES SCREEN due on 12/10/2020 DTAP,TDAP,TD(3 - Td) due on 10/01/2023 Data reviewed Documents to fill out brought by Maricarmen ASSESSMENT/PLAN: 1. Wellness examination - ICD9: V70.0, ICD10: Z00.00 (primary diagnosis) - Recommended regular aerobic exercise. - Follow up for annual exam in one year. 2. Active autistic disorder - ICD9: 299.00, ICD10: F84.0 - Stable 3. Moderate intellectual disabilities - ICD9: 318.0, ICD10: F71 - Stable 4. Retention of urine, unspecified - ICD9: 788.20, ICD10: R33.9 - Stable 5. Headaches Symptomatic treatment 1 year follow up and complete paperwork Misha Estrada MD The documentation for this note was completed by Bianca Brooke Ma acting as scribe for Misha Estrada MD. April 03, 2018 1:58 PM. Referring Provider: SELF [[id number]] Allergies As of Date: 04/03/2018 (No Known Allergies) Date Reviewed: 04/03/2018 Reviewed by: Bianca Brooke Ma - Fully Assessed Reason for Visit: Physical [83] Cmt: Annual Primary Visit Diagnosis:Wellness examination [Z00.00] Other Visit Diagnoses:Active autistic disorder [F84.0] Moderate intellectual disabilities [F71] Retention of urine, unspecified [R33.9] Prescriptions as of 04/03/2018 Sig: POLYETHYLENE GLYCOL 3350 17 G* DISSOLVE 1 CAPFUL (17GMS) ONC* VESICARE 10 MG TABLET TAKE (1) TABLET BY MOUTH ONCE* DOXAZOSIN 4 MG TABLET TAKE (1) TABLET BY MOUTH ALISE* FLUTICASONE 50 MCG/ACTUATION * INHALE 1 SPRAY INTO EACH NOST* SYSTANE (PROPYLENE GLYCOL) 0.* PLACE 1 DROP INTO EACH EYE EV* PEG 400-PROPYLENE GLYCOL (PF)* Use 1 Each in both eyes every* DIVALPROEX 125 MG TABLET,JOSE* Take 1 tablet by mouth once d* CLOZAPINE 100 MG TABLET Take 1 tablet in the morning,* CARBAMIDE PEROXIDE 6.5 % EAR * instill 4 drops in each ear t* DIVALPROEX 250 MG TABLET,JOSE* Take 250 mg by mouth twice da* IBUPROFEN 600 MG TABLET Take 1 tablet by mouth every * * ATTENDS PULL-ON BRIEFS LARGE as directed ROPINIROLE 4 MG TABLET Take 1 tablet by mouth three * Problem List As Of Date 04/03/2018 Noted Resolved Active autistic disorder [F84.0] 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 Unspecified Pleural Effusion [J90] INVALID FOR*02/15/2010 Blind [H54.7] INVALID FOR* Special screening for malignant neoplasms, colo*INVALID FOR* Acquired hammer toe [M20.40] INVALID FOR* Hyperkeratosis [L85.9] INVALID FOR* Pain in toe of right foot [M79.674] INVALID FOR* Acquired dysmorphic toenail [L60.8] INVALID FOR* Disposition: Return in about 1 year (around 04/03/2019), or if symptoms worsen or fail to improve. Follow-up and Disposition History Recorded Encounter Status:Closed by MISHA ESTRADA MD on 04/05/18 PROGRESS Observed: 04/03/2018 Status: COMPLETED Source: TIPPO 1:[address] [facility] REPOSITORY HNO ID: [id number] Author: Misha Estrada Service: (none) Author Type: Physician Type: Progress Notes Filed: 04/05/2018 2:38 PM Note Text: Chief Complaint Patient presents with: Physical: Annual HPI Mango Salazar is a 52 year old male who presents here today for an Annual Physical. Here today with Maricarmen, Coordinator Staff from [facility]. HTN - Checks at facility 1-2 per month with BP ranging from 100-160/70-90. Denies any chest pain, sob or dizziness. Currently on Cardura 4 mg 1 tab po once daily. Diet - Diet is fairly healthy. GI - Increased complaints of GI upset. Occasionally has diarrhea, but denies any blood. Uses Miralax, Pepto Bismol and Mylanta. ENCARNACION - Located on the top of his head and has light sensitivity and sound. Asking for Tylenol more due to headaches, daily basis. Tylenol does help headaches. Psych - Currently on Depakote 250 mg 1 tab po bid and Depakote 125 mg 1 tab po at 8:00 pm, Clozapine 100 mg 1 tab in the and 2 tabs hs[address] Follow[address] with [address]. Bazan. Neuro - Follows with Dr. Zuleta. Bladder - Wears depends and currently taking Cardura 4 mg at bedtime and Vesicare 10 mg 1 tab po once daily. Past medical history, appointments, medications, allergies reviewed. Previous Medical History PAST MEDICAL HISTORY Diagnosis Date - Autistic disorder, current or active state - Blindness of one eye right - Moderate intellectual disabilities - Other and unspecified hyperlipidemia - Other convulsions - Retention of urine, unspecified - Unspecified pleural effusion Previous Surgical History PAST SURGICAL HISTORY Procedure Laterality Date - COLONOSCOP W/ OR W/O [facility] SPEC 04/14/2015 Colonoscopy - PAST SURGICAL HISTORY OF Right occular implant Family History FAMILY HISTORY Problem Relation Age of Onset - Cancer Father skin - Lipids Mother Patient Allergies ALLERGIES No Known Allergies Current Medications Current Outpatient Prescriptions on File Prior to Visit: polyethylene glycol 3350 (MIRALAX, GLYCOLAX) 17 gram/dose powder DISSOLVE 1 CAPFUL (17GMS) ONCE DAILY IN 4-8OZ OF WATER/JUICE AND DRINK BY MOUTH VESICARE 10 mg tablet TAKE (1) TABLET BY MOUTH ONCE DAILY. doxazosin (CARDURA) 4 mg tablet TAKE (1) TABLET BY MOUTH DAILY AT BEDTIME. fluticasone (FLONASE) 50 mcg/actuation nasal spray INHALE 1 SPRAY INTO EACH NOSTRIL TWICE DAILY SYSTANE, PROPYLENE GLYCOL, 0.4-0.3 % ophthalmic solution PLACE 1 DROP INTO EACH EYE EVERY 12 HOURS NEEDED PEG 400-Propylene Glycol (SYSTANE) 0.4-0.3 % dpet Use 1 Each in both eyes every 12 hours as needed. divalproex DR (DEPAKOTE) 125 mg EC tablet Take 1 tablet by mouth once daily. One tablet daily at 8pm cloZAPine (CLOZARIL) 100 mg tablet Take 1 tablet in the morning, and 2 tablets at bedtime. carbamide peroxide (DEBROX) 6.5 % otic solution instill 4 drops in each ear twice daily x 3 days monthly for wax build up divalproex DR (DEPAKOTE) 250 mg EC tablet Take 250 mg by mouth twice daily. ibuprofen 600 mg tablet Take 1 tablet by mouth every 8 hours as needed for Pain or Fever. diaper,brief,adult,disposable(ATTENDS PULL-ON BRIEFS LARGE) as directed rOPINIRole (REQUIP) 4 mg tablet Take 1 tablet by mouth three times daily. No current facility-administered medications on file prior to visit. Social History Social History Marital status: Single Spouse name: Years of education: Number of children: Social History Main Topics Smoking status: Never Smoker Smokeless tobacco: Never Used Alcohol use: No Drug use: No EXAM: BP 136/84 (BP Site: Left Arm, BP Position: Sitting, BP Cuff Size: Regular Adult) Pulse 84 Resp 20 Wt 92.5 kg (204 lb) BMI 26.91 kg/m? General Appearance: Well appearing, alert, in no acute distress, well-hydrated, well nourished.. Lungs: Lungs clear to auscultation. No wheezing, rhonchi, rales. Heart: RRR without murmur, gallop, or rubs. No ectopy. Abdomen: Normal abdominal exam, Abdomen soft, non-tender. Bowel sounds normal. No masses, organomegaly. Health Maintenance List HEPATITIS C SCREENING due on 2009 ZOSTER VACCINE (SHINGRIX)(1 of 2) due on 2015 LIPID SCREEN due on 04/15/2015 INFLUENZA(1) due on 05/25/2018 COLORECTAL CANCER SCREENING,SEE MODIFIER due on 04/14/2020 DIABETES SCREEN due on 12/10/2020 DTAP,TDAP,TD(3 - Td) due on 10/01/2023 Data reviewed Documents to fill out brought by Maricarmen ASSESSMENT/PLAN: 1. Wellness examination - ICD9: V70.0, ICD10: Z00.00 (primary diagnosis) - Recommended regular aerobic exercise. - Follow up for annual exam in one year. 2. Active autistic disorder - ICD9: 299.00, ICD10: F84.0 - Stable 3. Moderate intellectual disabilities - ICD9: 318.0, ICD10: F71 - Stable 4. Retention of urine, unspecified - ICD9: 788.20, ICD10: R33.9 - Stable 5. Headaches Symptomatic treatment 1 year follow up and complete paperwork Misha Estrada MD The documentation for this note was completed by Bianca Brooke Ma acting as scribe for Misha Estrada MD. April 03, 2018 1:58 PM. CBC W/DIFF, AUTOMATED Collected: 04/03/2018 Status: F Source: HERIBERTO 12:46 PM [facility] REPOSITORY TYPE CODE TESTS RESULT OUT OF RANGE REFERENCE UNITS LAB L100.1000 4.4-11.0 K/mm3 Low WBC 4.2 LAB L100.1200 4.6-6.2 M/mm3 Normal RBC 4.85 LAB L100.1300 13.0-16.5 g/dl Normal HGB 14.0 LAB L100.1400 40-54 % Normal HCT 43.4 LAB L100.1500 80-94 fL Normal MCV 89.5 LAB L100.1600 27.0-32.0 pg Normal MCH 28.9 LAB L100.1700 32-36 g/gl Normal MCHC 32.3 LAB L100.1810 11.6-14.6 % Normal RDW CV 13.8 LAB L100.1820 35.1-43.9 fl High RDW SD 45.4 LAB L100.1900 150-450 K/mm3 Low PLT 145 LAB L100.2000 6.2-12.0 fl Normal MPV 10.1 LAB L100.2100 47-70 % Normal NEUT% 64.4 LAB L100.2200 19-41 % Normal LY% 24.1 LAB L100.2300 0-10 % Normal MONO% 8.0 LAB L100.2400 0-5 % Normal EO% 2.8 LAB L100.2500 0-1 % Normal BASO% 0.5 LAB L100.2550 0.0-0.9 % Normal IM GRAN % 0.200 Result Comment: IG% - Immature Granulocytes (promyelocytes, myelocytes and metamyelocytes) > 1% indicates that a LEFT SHIFT is Present. LAB L100.2620 2.0-7.7 X10 3/uL Normal Absolute Neut 2.7 LAB L100.2720 0.83-4.51 X10 3/ul Normal Absolute Lymph 1.02 Performed By: #### L100.0100 #### [facility] [address] [place], [address] [facility] Observed: 03/19/2018 Status: COMPLETED Source: TIPPO 12:00 AM [facility] REPOSITORY Patient Outreach (FAMPST) MANGO SALAZAR ([id number]) 1965 M Date Time Provider Department 03/19/18 MISHA ESTRADA [facility] During your visit today, we recorded the following information about you: Allergies As of Date: 03/19/2018 (No Known Allergies) Date Reviewed: 01/29/2017 Reviewed by: Bianca Brooke Ma - Fully Assessed Visit Diagnosis:Medication management [Z79.899] Order(s):LIPID PANEL BASIC [SQLIPB] Order #: [id number] FUTURE Prescriptions as of 03/19/2018 Sig: X VESICARE 10 MG TABLET TAKE (1) TABLET BY MOUTH ONCE* DOXAZOSIN 4 MG TABLET TAKE (1) TABLET BY MOUTH ALISE* X POLYETHYLENE GLYCOL 3350 17 G* DISSOLVE 17 GRAMS IN 4- 8OZ WA* X FLUTICASONE 50 MCG/ACTUATION * INHALE 1 SPRAY INTO EACH NOST* SYSTANE (PROPYLENE GLYCOL) 0.* PLACE 1 DROP INTO EACH EYE EV* PEG 400-PROPYLENE GLYCOL (PF)* Use 1 Each in both eyes every* DIVALPROEX 125 MG TABLET,JOSE* Take 1 tablet by mouth once d* CLOZAPINE 100 MG TABLET Take 1 tablet in the morning,* CARBAMIDE PEROXIDE 6.5 % EAR * instill 4 drops in each ear t* ROPINIROLE 4 MG TABLET Take 1 tablet by mouth three * DIVALPROEX 250 MG TABLET,JOSE* Take 250 mg by mouth twice da* IBUPROFEN 600 MG TABLET Take 1 tablet by mouth every * * ATTENDS PULL-ON BRIEFS LARGE as directed Problem List As Of Date 03/19/2018 Noted Resolved Active autistic disorder [F84.0] 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 Unspecified Pleural Effusion [J90] INVALID FOR*02/15/2010 Blind [H54.7] INVALID FOR* Special screening for malignant neoplasms, colo*INVALID FOR* Acquired hammer toe [M20.40] INVALID FOR* Hyperkeratosis [L85.9] INVALID FOR* Pain in toe of right foot [M79.674] INVALID FOR* Acquired dysmorphic toenail [L60.8] INVALID FOR* Encounter Status:Closed by [employer], PRODUSER on 07/05/18 CBC W/DIFF, AUTOMATED Collected: 03/15/2018 Status: F Source: HERIBERTO 8:03 AM [facility] REPOSITORY TYPE CODE TESTS RESULT OUT OF RANGE REFERENCE UNITS LAB L100.1000 4.4-11.0 K/mm3 Normal WBC 5.4 LAB L100.1200 4.6-6.2 M/mm3 Normal RBC 5.05 LAB L100.1300 13.0-16.5 g/dl Normal HGB 14.8 LAB L100.1400 40-54 % Normal HCT 44.5 LAB L100.1500 80-94 fL Normal MCV 88.1 LAB L100.1600 27.0-32.0 pg Normal MCH 29.3 LAB L100.1700 32-36 g/gl Normal MCHC 33.3 LAB L100.1810 11.6-14.6 % Normal RDW CV 13.7 LAB L100.1820 35.1-43.9 fl Normal RDW SD 43.8 LAB L100.1900 150-450 K/mm3 Low PLT 143 LAB L100.2000 6.2-12.0 fl Normal MPV 10.6 LAB L100.2100 47-70 % Normal NEUT% 70.0 LAB L100.2200 19-41 % Low LY% 18.7 LAB L100.2300 0-10 % Normal MONO% 7.9 LAB L100.2400 0-5 % Normal EO% 2.6 LAB L100.2500 0-1 % Normal BASO% 0.6 LAB L100.2550 0.0-0.9 % Normal IM GRAN % 0.200 Result Comment: IG% - Immature Granulocytes (promyelocytes, myelocytes and metamyelocytes) > 1% indicates that a LEFT SHIFT is Present. LAB L100.2620 2.0-7.7 X10 3/uL Normal Absolute Neut 3.8 LAB L100.2720 0.83-4.51 X10 3/ul Normal Absolute Lymph 1.01 Performed By: #### L100.0100 #### [facility] [address] [facility]. [place], [place], [address] VALPROIC ACID Collected: 03/15/2018 Status: F Source: HERIBERTO (DEPAKENE) LEVEL 8:03 AM [facility] REPOSITORY TYPE CODE TESTS RESULT OUT OF REFERENCE UNITS RANGE LAB L501.8100 50-100 ug/mL Low VALPROIC ACID 39 Performed By: #### L501.8100 #### [facility] [address] [facility]. [place], [place], [id number] COMPREHENSIVE METABOLIC Collected: 03/15/2018 Status: F Source: HERIBERTO PROFIL 8:03 AM [facility] REPOSITORY TYPE CODE TESTS RESULT OUT OF RANGE REFERENCE UNITS LAB L501.0100 74-106 mg/dL Normal GLU 83 Result Comment: Please note revised GLUCOSE reference range effective 2017. LAB L501.1000 7-18 mg/dL Normal BUN 12 LAB L501.1100 0.70-1.30 mg/dL Normal CREAT,SERUM 0.78 Result Comment: The validity of the calculated GFR AND GFRAA in patients over 70 years has not been determined. Clinical correlation is essential. LAB L501.1110 >60 mL/min Normal EST GFR 112 Result Comment: Non- GFR Calc LAB L501.1115 >60 mL/min Normal EST GFR - AA 135 Result Comment: GFR Calc LAB L501.1300 10-20 RATIO Normal BUN/CRE 15.5 LAB L501.1500 6.4-8.2 g/dL T Normal PROT 7.9 LAB L501.1800 3.2-5.0 g/dL Normal ALB 3.7 LAB L501.1950 2.2-4.2 g/dL Normal GLOB 4.2 LAB L501.2000 0.9-2.4 RATIO Normal A/G 0.9 LAB L501.2200 8.5-10.1 mg/dL CA Normal 8.8 LAB L501.4100 15-37 U/L Normal AST 23 LAB L501.4305 45-117 U/L High ALK P 124 LAB L501.4405 16-61 U/L Normal ALT 30 LAB L501.4600 0.20-1.00 mg/dL T Normal BILI 0.50 LAB L501.5300 136-145 mmol/L NA Normal 139 LAB L501.5600 3.5-5.1 mmol/L K Normal 4.2 LAB L501.5900 98-107 mmol/L CL Normal 104 LAB L501.6100 21.0-32.0 mmol/L Normal CO2 30.0 LAB L501.6200 5-15 Normal GAP 5 Performed By: #### L500.4050 #### [facility] [address] [place], [place], [address] CBC W/DIFF, AUTOMATED Collected: 02/08/2018 Status: F Source: HERIBERTO 9:12 AM [facility] REPOSITORY TYPE CODE TESTS RESULT OUT OF RANGE REFERENCE UNITS LAB L100.1000 4.4-11.0 K/mm3 High WBC 12.4 LAB L100.1200 4.6-6.2 M/mm3 Normal RBC 5.11 LAB L100.1300 13.0-16.5 g/dl Normal HGB 15.2 LAB L100.1400 40-54 % Normal HCT 44.4 LAB L100.1500 80-94 fL Normal MCV 86.9 LAB L100.1600 27.0-32.0 pg Normal MCH 29.7 LAB L100.1700 32-36 g/gl Normal MCHC 34.2 LAB L100.1810 11.6-14.6 % Normal RDW CV 13.4 LAB L100.1820 35.1-43.9 fl Normal RDW SD 42.2 LAB L100.1900 150-450 K/mm3 Normal PLT 163 LAB L100.2000 6.2-12.0 fl Normal MPV 11.3 LAB L100.2100 47-70 % High NEUT% 88.4 LAB L100.2200 19-41 % Low LY% 4.5 LAB L100.2300 0-10 % Normal MONO% 6.4 LAB L100.2400 0-5 % Normal EO% 0.3 LAB L100.2500 0-1 % Normal BASO% 0.2 LAB L100.2550 0.0-0.9 % Normal IM GRAN % 0.200 Result Comment: IG% - Immature Granulocytes (promyelocytes, myelocytes and metamyelocytes) > 1% indicates that a LEFT SHIFT is Present. LAB L100.2620 2.0-7.7 X10 3/uL High Absolute Neut 11.0 LAB L100.2720 0.83-4.51 X10 3/ul Low Absolute Lymph 0.56 LAB L100.4500 Normal SMEAR COMMENT COMMENT Result Comment: SLIDE SCANNED - LYMPHOPENIA NOTED. Performed By: #### L100.0100 #### [facility] [address] [place], [address] CBC W/DIFF, AUTOMATED Collected: 01/14/2018 Status: F Source: GARY 3:36 PM [facility] REPOSITORY TYPE CODE TESTS RESULT OUT OF RANGE REFERENCE UNITS LAB L100.1000 4.4-11.0 K/mm3 Normal WBC 5.5 LAB L100.1200 4.6-6.2 M/mm3 Normal RBC 4.93 LAB L100.1300 13.0-16.5 g/dl Normal HGB 14.5 LAB L100.1400 40-54 % Normal HCT 43.8 LAB L100.1500 80-94 fL Normal MCV 88.8 LAB L100.1600 27.0-32.0 pg Normal MCH 29.4 LAB L100.1700 32-36 g/gl Normal MCHC 33.1 LAB L100.1810 11.6-14.6 % Normal RDW CV 13.7 LAB L100.1820 35.1-43.9 fl High RDW SD 44.6 LAB L100.1900 150-450 K/mm3 Normal PLT 155 LAB L100.2000 6.2-12.0 fl Normal MPV 10.7 LAB L100.2100 47-70 % Normal NEUT% 59.6 LAB L100.2200 19-41 % Normal LY% 25.7 LAB L100.2300 0-10 % High MONO% 11.4 LAB L100.2400 0-5 % Normal EO% 2.2 LAB L100.2500 0-1 % Normal BASO% 0.9 LAB L100.2550 0.0-0.9 % Normal IM GRAN % 0.200 Result Comment: IG% - Immature Granulocytes (promyelocytes, myelocytes and metamyelocytes) > 1% indicates that a LEFT SHIFT is Present. LAB L100.2620 2.0-7.7 X10 3/uL Normal Absolute Neut 3.3 LAB L100.2720 0.83-4.51 X10 3/ul Normal Absolute Lymph 1.40 Performed By: #### L100.0100 #### [facility] [address] [place] [address]. [place], [place], [address] CBC W/DIFF, AUTOMATED Collected: 12/10/2017 Status: F Source: GARY 2:14 PM [facility] REPOSITORY TYPE CODE TESTS RESULT OUT OF RANGE REFERENCE UNITS LAB L100.1000 4.4-11.0 K/mm3 Normal WBC 4.5 LAB L100.1200 4.6-6.2 M/mm3 Normal RBC 5.02 LAB L100.1300 13.0-16.5 g/dl Normal HGB 15.0 LAB L100.1400 40-54 % Normal HCT 45.2 LAB L100.1500 80-94 fL Normal MCV 90.0 LAB L100.1600 27.0-32.0 pg Normal MCH 29.9 LAB L100.1700 32-36 g/gl Normal MCHC 33.2 LAB L100.1810 11.6-14.6 % Normal RDW CV 14.0 LAB L100.1820 35.1-43.9 fl High RDW SD 45.6 LAB L100.1900 150-450 K/mm3 Normal PLT 176 LAB L100.2000 6.2-12.0 fl Normal MPV 10.6 LAB L100.2100 47-70 % Normal NEUT% 62.3 LAB L100.2200 19-41 % Normal LY% 28.5 LAB L100.2300 0-10 % Normal MONO% 7.5 LAB L100.2400 0-5 % Normal EO% 1.1 LAB L100.2500 0-1 % Normal BASO% 0.4 LAB L100.2550 0.0-0.9 % Normal IM GRAN % 0.200 Result Comment: IG% - Immature Granulocytes (promyelocytes, myelocytes and metamyelocytes) > 1% indicates that a LEFT SHIFT is Present. LAB L100.2620 2.0-7.7 X10 3/uL Normal Absolute Neut 2.8 LAB L100.2720 0.83-4.51 X10 3/ul Normal Absolute Lymph 1.29 Performed By: #### L100.0100 #### [facility] [address], [place], [id number] VALPROIC ACID Collected: 12/10/2017 Status: F Source: GARY (DEPAKENE) LEVEL 2:14 PM [facility] REPOSITORY TYPE CODE TESTS RESULT OUT OF REFERENCE UNITS RANGE LAB L501.8100 50-100 ug/mL Low VALPROIC ACID 43 Performed By: #### L501.8100 #### [facility] [address] [facility] [place], [place], [id number] COMPREHENSIVE METABOLIC Collected: 12/10/2017 Status: F Source: GARY PROFIL 2:14 PM [facility] REPOSITORY TYPE CODE TESTS RESULT OUT OF RANGE REFERENCE UNITS LAB L501.0100 74-106 mg/dL Normal GLU 105 Result Comment: Fasting Glucose result from 100 to 125 mg/dL suggests IMPAIRED HOMEOSTASIS per A.D.A. criteria. Please note revised GLUCOSE reference range effective 2017. LAB L501.1000 7-18 mg/dL Normal BUN 16 LAB L501.1100 0.70-1.30 mg/dL Normal CREAT,SERUM 0.93 Result Comment: The validity of the calculated GFR AND GFRAA in patients over 70 years has not been determined. Clinical correlation is essential. LAB L501.1110 >60 mL/min Normal EST GFR 91 Result Comment: Non- GFR Calc LAB L501.1115 >60 mL/min Normal EST GFR - AA 110 Result Comment: GFR Calc LAB L501.1300 10-20 RATIO Normal BUN/CRE 17.3 LAB L501.1500 6.4-8.2 g/dL T Normal PROT 7.9 LAB L501.1800 3.2-5.0 g/dL Normal ALB 3.9 LAB L501.1950 2.2-4.2 g/dL Normal GLOB 4.0 LAB L501.2000 0.9-2.4 RATIO Normal A/G 1.0 LAB L501.2200 8.5-10.1 mg/dL CA Normal 9.1 LAB L501.4100 15-37 U/L High AST 38 LAB L501.4305 45-117 U/L High ALK P 132 LAB L501.4405 16-61 U/L High ALT 94 Result Comment: Please note revised ALT reference range effective 2017. LAB L501.4600 0.20-1.00 mg/dL Normal T BILI 0.30 LAB L501.5300 136-145 mmol/L Normal NA 140 LAB L501.5600 3.5-5.1 mmol/L Normal K 4.1 LAB L501.5900 98-107 mmol/L Normal CL 101 LAB L501.6100 21.0-32.0 mmol/L High CO2 34.0 LAB L501.6200 5-15 Normal GAP 5 Performed By: #### L500.4050 #### [facility] [address] [place], [address] CBC W/DIFF, AUTOMATED Collected: 11/06/2017 Status: F Source: [place] 8:51 AM [facility] REPOSITORY TYPE CODE TESTS RESULT OUT OF RANGE REFERENCE UNITS LAB L100.1000 4.4-11.0 K/mm3 Normal WBC 4.4 LAB L100.1200 4.6-6.2 M/mm3 Normal RBC 5.14 LAB L100.1300 13.0-16.5 g/dl Normal HGB 15.3 LAB L100.1400 40-54 % Normal HCT 45.7 LAB L100.1500 80-94 fL Normal MCV 88.9 LAB L100.1600 27.0-32.0 pg Normal MCH 29.8 LAB L100.1700 32-36 g/gl Normal MCHC 33.5 LAB L100.1810 11.6-14.6 % Normal RDW CV 14.4 LAB L100.1820 35.1-43.9 fl High RDW SD 46.1 LAB L100.1900 150-450 K/mm3 Low PLT 146 LAB L100.2000 6.2-12.0 fl Normal MPV 11.3 LAB L100.2100 47-70 % Normal NEUT% 60.6 LAB L100.2200 19-41 % Normal LY% 24.7 LAB L100.2300 0-10 % High MONO% 11.3 LAB L100.2400 0-5 % Normal EO% 1.6 LAB L100.2500 0-1 % High BASO% 1.6 LAB L100.2550 0.0-0.9 % Normal IM GRAN % 0.200 Result Comment: IG% - Immature Granulocytes (promyelocytes, myelocytes and metamyelocytes) > 1% indicates that a LEFT SHIFT is Present. LAB L100.2620 2.0-7.7 X10 3/uL Normal Absolute Neut 2.7 LAB L100.2720 0.83-4.51 X10 3/ul Normal Absolute Lymph 1.09 Performed By: #### L100.0100 #### [facility] [address] [place], [address] ALLERGIES ALLERGIES DATE TYPE / CODE NAME / CODE REACTION SEVERITY SOURCE 10/02/2014 Drug No Known Unknown [facility] Allergy/416 Allergies/N27789 [facility] 269601(SNOM 0388(RXNORM) Repository ED CT) Drug NO KNOWN [facility] Class/83767 ALLERGIES Main [place] 1003(SNOMED Repository CT) ENCOUNTERS ENCOUNTERS ADMIT/DISCHARGE ACCOUNT ADMITTING ENCOUNTER LOCATION SOURCE NUMBER CLASS 10/15/2018 [id number] [place] [facility] ing:LAB Repository 09/27/2018 [id number] [place] [facility] ing:LAB Repository 09/16/2018/09/16/20 [id number] Amb[place] [address] [facility] ing:LAB Repository 08/20/2018/08/23/20 [id number] Amb[place] [address] [facility] ing:LAB Repository 07/24/2018/07/24/20 [id number] Amb[place] [address] [facility] ing:LAB Repository 06/20/2018/06/20/20 [id number] Ambulatory [place] [address] [facility] ing:LAB Repository 06/13/2018/06/17/20 [id number] Ambulatory [address] Repository 04/25/2018/08/23/20 [id number] Amb[place] [address] [facility] ing:LAB Repository 04/25/2018/04/25/20 [id number] Amb[place] [address] [facility] ing:LAB Repository 04/03/2018/04/08/20 [id number] Ambulatory [address] Repository 04/03/2018/04/03/20 [id number] Amb[place] [address] [facility] ing:LAB Repository 03/15/2018/03/15/20 [id number] [place] [address] [facility] ing:LAB Repository 02/08/2018/02/09/20 [id number] Amb[place] [address] [facility] ing:LAB Repository 01/14/2018/01/15/20 [id number] [place] [address] [facility] ing:LAB Repository 12/10/2017/12/11/19 [id number] Ambulatory [place] [address] [facility] ing:LAB Repository 12/10/2017 [id number] Ambulatory [place] [facility] ing:LAB.FUTUR Repository E 11/06/2017/11/06/19 [id number] Ambulatory [place] [address] [facility] ing:LAB Repository PAYERS PAYERS ENCOUNTER GUARANTOR PAYER SUBSCRIBER SOURCE 10/15/2018 JOSH P Primary JOSH P [place] Insurance:MEDICARE HOITINKDOB: [facility] [id number] PART A [facility] [id number] Number: Repository [address]Wgl: 330 [id number] [phone] () Date:2004-12-23 10/15/2018 Secondary [place] Insurance:MEDICAIDPo HOITINKDOB: [facility]ly [facility] licy Number: [id number] Hospital [id number] Repository e Date:2017-04-04 10/15/2018 Tertiary NOT GIVENUNK [place] Insurance:SELF PAY [facility] Number: Effective Repository Date:2018-09-23 09/27/2018 JOSH P Primary JOSH P [place] Insurance:MEDICARE HOITINKDOB: [facility] [id number] PART A [facility] [id number] [place] Number[facility] Repository [address]Ooy: 330 [id number] [phone] () Date:2018-04-25 09/27/2018 Secondary JOSH P [place] Insurance:MEDICAIDPo HOITINKDOB: [facility]ly [facility] licy Number: [id number] Hospital [id number] Repository e Date:2018-04-25 09/27/2018 Tertiary NOT GIVENUNK [place] Insurance:SELF PAY [facility] Number: Effective Repository Date:2018-08-26 09/16/2018 JOSH P Primary JOSH P [place] Insurance:MEDICARE HOITINKDOB: [facility] [id number] PART A [facility] [id number] Number: Repository [address]Rhv: 330 [id number] [phone] () Date:2004-12-23 09/16/2018 Secondary JOSH P [place] Insurance:MEDICAIDPo HOITINKDOB: Formerly [facility] licy Number: [id number] Hospital [id number] Repository e Date:2017-04-04 09/16/2018 Tertiary NOT GIVENUNK [place] Insurance:SELF PAY [facility] Number: Effective Repository Date:2018-08-26 08/20/2018 JOSH P Primary JOSH P [place] Insurance:MEDICARE HOITINKDOB: Community HEALTH [id number] PART A [facility] [id number] Number: Repository [address]Mgb: 330 [id number] [phone] (HP) Date:2018-04-25 08/20/2018 Secondary JOSH P [place] Insurance:MEDICAIDPo HOITINKDOB: Community licy Number: [id number] Hospital [id number] Repository e Date:2018-04-25 08/20/2018 Tertiary NOT GIVENUNK [place] Insurance:SELF PAY [facility] Number: Effective Repository Date:2018-07-25 07/24/2018 JOSH P Primary JOSH P [place] Insurance:MEDICARE HOITINKDOB: [facility] HEALTH [id number] PART A [facility] [id number] Number: Repository [address]Boj: 330 [id number] [phone] (HP) Date:2018-04-25 07/24/2018 Secondary JOSH P [place] Insurance:MEDICAIDPo HOITINKDOB: Community licy Number: [id number] Hospital [id number] Repository e Date:2018-04-25 07/24/2018 Tertiary NOT GIVENUNK [place] Insurance:SELF PAY [facility] Number: Effective Repository Date:2018-06-26 06/20/2018 JOSH P Primary JOSH P [place] Insurance:MEDICARE HOITINKDOB: [facility] HEALTH [id number] PART A [facility] [id number] Number: Repository [address]Xqo: 330 [id number] [phone] (HP) Date:2018-04-25 06/20/2018 Secondary JOSH P [place] Insurance:MEDICAIDPo HOITINKDOB: Community licy Number: [id number] Hospital [id number] Repository e Date:2018-04-25 06/20/2018 Tertiary NOT GIVENUNK [place] Insurance:SELF PAY [facility] Number: Effective Repository Date:2018-05-28 04/25/2018 JOSH P Primary JOSH P [place] Insurance:MEDICARE HOITINKDOB: Community HEALTH [id number] PART A [facility] [id number] Number: Repository [address]Tvh: 330 [id number] [phone] (HP) Date:2004-12-23 04/25/2018 Secondary JOSH P [place] Insurance:MEDICAIDPo HOITINKDOB: Community licy Number: [id number] Hospital [id number] Repository e Date:2017-04-04 04/25/2018 Tertiary NOT GIVENUNK [place] Insurance:SELF PAY [facility] Number: Effective Repository Date:2018-04-25 04/25/2018 JOSH P Primary [place]H P [place] Insurance:MEDICARE HOITINKDOB: [facility]ly [facility] HEALTH [id number] PART A [facility] [id number] [facility] Number: Repository [address]Grf: 330 [id number] [phone] (HP) Date:2018-04-25 04/25/2018 Secondary JOSH P [place] Insurance:MEDICAIDPo HOITINKDOB: Community licy Number: [id number] Hospital [id number] Repository e Date:2018-04-25 04/25/2018 Tertiary NOT GIVENUNK [place] Insurance:SELF PAY [facility] Number: Effective Repository Date:2018-04-25 04/03/2018 JOSH P Primary JOSH P [place] Insurance:MEDICARE HOITINKDOB: Community HEALTH [id number] PART A [facility] [id number] Foundation [facility], [place] Number: Repository [address]Gmv: 330 [id number] [phone] (HP) Date:2004-12-23 04/03/2018 Secondary JOSH P [place] Insurance:MEDICAIDPo HOITINKDOB: Community licy Number: [id number] Hospital [id number] Repository e Date:2017-04-04 04/03/2018 Tertiary NOT GIVENUNK [place] Insurance:SELF PAY Community [facility] Number: Effective Repository Date:2018-03-22 03/15/2018 JOSH P Primary JOSH P [place] Insurance:MEDICARE HOITINKDOB: Community HEALTH [id number] PART A [facility] [id number] Number: Repository [address]Nli: 330 [id number] [phone] () Date:2004-12-23 03/15/2018 Secondary JOSH P [place] Insurance:MEDICAIDPo HOITINKDOB: Community licy Number: [id number] Hospital [id number] Repository e Date:2017-04-04 03/15/2018 Tertiary NOT GIVENUNK [place] Insurance:SELF PAY [facility] Number: Effective Repository Date:2018-02-21 02/08/2018 JOSH P Primary [place]H P [place] Insurance:MEDICARE HOITINKDOB: [facility] HEALTH [id number] PART A [facility] [id number] [facility] Number: Repository [address]Grn: [id number] [phone] Date:2004-12-23 () 02/08/2018 Secondary JOSH P [place] Insurance:MEDICAIDPo HOITINKDOB: Community licy Number: [id number] Hospital [id number] Repository e Date:2017-04-04 02/08/2018 Tertiary NOT GIVENUNK [place] Insurance:SELF PAY [facility] Number: Effective Repository Date:2018-01-22 01/14/2018 JOSH P [id number] Primary [facility] [place] [facility] HOITINKDOB: Community HEALTH PART A [facility] [id number] [place] Number: Repository [address]Qjs: [id number] [phone] Date:2004-12-23 () 01/14/2018 Secondary JOSH P [place] Insurance:MEDICAIDPo HOITINKDOB: Community licy Number: [id number] Hospital [id number] Repository e Date:2017-04-04 01/14/2018 Tertiary NOT GIVENUNK [place] Insurance:SELF PAY Community [facility] Number: Effective Repository Date:2017-12-24 12/10/2017 JOSH P [id number] Primary [place]H P [place] Insurance:MEDICARE HOITINKDOB: Community HEALTH PART A [facility] [id number] Number: Repository [address]Eid: [id number] [phone] Date:2004-12-23 () 12/10/2017 Secondary JOSH P [place] Insurance:MEDICAIDPo HOITINKDOB: Community licy Number: [id number] Hospital [id number] Repository e Date:2017-04-04 12/10/2017 Tertiary NOT GIVENUNK [place] Insurance:SELF PAY [facility] Number: Effective Repository Date:2017-11-22 12/10/2017 JOSH P [id number] Primary JOSH P [place] Insurance:MEDICARE HOITINKDOB: Community HEALTH PART A [facility] [id number] Number: Repository [id number]: [id number] [phone] Date:2017-12-10 () 12/10/2017 Secondary JOSH P [place] Insurance:MEDICAIDPo HOITINKDOB: Community licy Number: [id number] Hospital [id number] Repository e Date:2017-12-10 12/10/2017 Tertiary NOT GIVENUNK [place] Insurance:SELF PAY [facility] Number: Effective Repository Date:2017-12-10 11/06/2017 JOSH P [id number] Primary JOSH P [place] Insurance:MEDICARE HOITINKDOB: Community HEALTH PART A [facility] [id number] Number: Repository [id number]: [id number] [phone] Date:2004-12-23 () 11/06/2017 Secondary JOSH P [place] Insurance:MEDICAIDPo HOITINKDOB: Community licy Number: [id number] Hospital [id number] Repository e Date:2017-04-04 11/06/2017 Tertiary NOT [place] Insurance:SELF PAY [facility] Number: Effective Repository Date:2017-09-24
== END 2018-09-16 16:00 | disposition home or self-care (01) ==
LOC: LAB 15:36
PROVIDERS: Family Provider Family Medicine; PCP Family Medicine; Referring Provider Psychiatry & Neurology Child & Adolescent Psychiatry; Visit Provider Psychiatry & Neurology Child & Adolescent Psychiatry
DX: F84.0 Autistic disorder (principal); F91.9 Conduct disorder, unspecified; F71 Moderate intellectual disabilities
CPT/HCPCS: 36415; 85025

== ENCOUNTER 2018-09-27 08:46 | Outpatient (RCR) | payer MEDICARE, MEDICAID, SELFPAY ==
[2018-09-27 10:23] LABS: BUN 13 mg/dL (7-18); Creatinine, Serum 0.88 mg/dL (0.70-1.30); Glucose 95 mg/dL (74-106)
[2018-09-27 10:24] LABS: AST(SGOT) 25 U/L (15-37); Alanine Aminotransfer ALT/SGPT 41 U/L (16-61); Albumin, Serum 3.9 g/dL (3.2-5.0); Alkaline Phosphatase 136 U/L (45-117); Anion Gap 7 (5-15); BUN/Creat Ratio 14.8 RATIO (10-20); Chloride 104 mmol/L (98-107); EST Glomerular Filtration Rate 96 mL/min (>60); Est Glom Filt Rate - Afr Amer 117 mL/min (>60); Globulin 3.8 g/dL (2.2-4.2); Potassium 4.2 mmol/L (3.5-5.1); Protein, Total 7.7 g/dL (6.4-8.2); Sodium Level 141 mmol/L (136-145)
[2018-09-27 10:35] LABS: Valproic Acid (Depakene) Level 46 ug/mL (50-100)
== END 2018-09-27 09:00 | disposition home or self-care (01) ==
LOC: LAB 08:46
PROVIDERS: Family Provider Family Medicine; PCP Family Medicine; Referring Provider Psychiatry & Neurology Child & Adolescent Psychiatry; Visit Provider Psychiatry & Neurology Child & Adolescent Psychiatry
DX: F84.0 Autistic disorder (principal); F91.9 Conduct disorder, unspecified; F71 Moderate intellectual disabilities
CPT/HCPCS: 36415; 80053; 80164

== ENCOUNTER 2018-10-15 11:07 | Outpatient (RCR) | payer MEDICARE, MEDICAID, SELFPAY ==
[2018-10-01 16:03] LABS: Absolute Lymphocyte Count 1.59 X10^3/ul (0.83-4.51); Absolute Neutrophil Count 3.3 X10^3/uL (2.0-7.7); Basophil# 0.03 X10^3/uL; Basophil% 0.5 % (0-1); Eosinophil# 0.09 X10^3/uL; Eosinophils% 1.6 % (0-5); Hematocrit 43.2 % (40-54); Hemoglobin 14.1 g/dl (13.0-16.5); Lymphocyte # 1.59 X10^3/ul (4.0); Lymphocyte % 28.9 % (19-41); Mean Corp Hgb Conc 32.6 g/gl (32-36); Mean Corpuscular Hgb 29.3 pg (27.0-32.0); Mean Corpuscular Volume 89.8 fL (80-94); Mean Platelet Vol. 10.5 fl (6.2-12.0); Monocyte# 0.51 X10^3/uL; Monocyte% 9.3 % (0-10); Neutrophil # 3.28 X10^3/uL (2.7-7.7); Neutrophil % 59.5 % (47-70); Platelet Count 152 K/mm3 (150-450); RBC Distribution Width SD 45.9 fl (35.1-43.9); Red Blood Count 4.81 M/mm3 (4.6-6.2); White Blood Count 5.5 K/mm3 (4.4-11.0)
[2018-10-01 16:13] LABS: POSITIVE COUNT NO; POSITIVE DIFFERENTIAL NO; POSITIVE MORPHOLOGY NO
[2018-10-15 11:54] LABS: Absolute Lymphocyte Count 1.21 X10^3/ul (0.83-4.51); Absolute Neutrophil Count 1.9 X10^3/uL (2.0-7.7); Basophil# 0.04 X10^3/uL; Basophil% 1.1 % (0-1); Eosinophil# 0.08 X10^3/uL; Eosinophils% 2.2 % (0-5); Hematocrit 44.7 % (40-54); Hemoglobin 14.8 g/dl (13.0-16.5); Lymphocyte # 1.21 X10^3/ul (4.0); Lymphocyte % 32.9 % (19-41); Mean Corp Hgb Conc 33.1 g/gl (32-36); Mean Corpuscular Hgb 29.2 pg (27.0-32.0); Mean Corpuscular Volume 88.3 fL (80-94); Mean Platelet Vol. 11.4 fl (6.2-12.0); Monocyte# 0.41 X10^3/uL; Monocyte% 11.1 % (0-10); Neutrophil # 1.93 X10^3/uL (2.7-7.7); Neutrophil % 52.4 % (47-70); Platelet Count 138 K/mm3 (150-450); RBC Distribution Width CV 14.4 % (11.6-14.6); RBC Distribution Width SD 46.3 fl (35.1-43.9); Red Blood Count 5.06 M/mm3 (4.6-6.2); White Blood Count 3.7 K/mm3 (4.4-11.0)
[2018-10-15 11:58] LABS: POSITIVE COUNT NO; POSITIVE DIFFERENTIAL NO; POSITIVE MORPHOLOGY NO
== END 2018-10-15 12:07 | disposition home or self-care (01) ==
LOC: LAB 11:07
PROVIDERS: Family Provider Family Medicine; PCP Family Medicine; Referring Provider Psychiatry & Neurology Child & Adolescent Psychiatry; Visit Provider Psychiatry & Neurology Child & Adolescent Psychiatry
DX: F84.0 Autistic disorder (principal); F91.9 Conduct disorder, unspecified; F71 Moderate intellectual disabilities
CPT/HCPCS: 36415; 85025

== ENCOUNTER 2018-11-11 11:49 | Outpatient (RCR) | payer MEDICARE, MEDICAID, SELFPAY ==
[2018-10-28 09:44] LABS: Absolute Lymphocyte Count 0.96 X10^3/ul (0.83-4.51); Absolute Neutrophil Count 5.7 X10^3/uL (2.0-7.7); Basophil# 0.03 X10^3/uL; Basophil% 0.4 % (0-1); Eosinophil# 0.07 X10^3/uL; Eosinophils% 0.9 % (0-5); Hematocrit 44.2 % (40-54); Hemoglobin 14.7 g/dl (13.0-16.5); Lymphocyte # 0.96 X10^3/ul (4.0); Lymphocyte % 12.7 % (19-41); Mean Corp Hgb Conc 33.3 g/gl (32-36); Mean Corpuscular Hgb 29.5 pg (27.0-32.0); Mean Corpuscular Volume 88.8 fL (80-94); Mean Platelet Vol. 10.4 fl (6.2-12.0); Monocyte# 0.78 X10^3/uL; Monocyte% 10.3 % (0-10); Neutrophil # 5.65 X10^3/uL (2.7-7.7); Neutrophil % 74.9 % (47-70); Platelet Count 200 K/mm3 (150-450); RBC Distribution Width CV 14.1 % (11.6-14.6); RBC Distribution Width SD 45.8 fl (35.1-43.9); Red Blood Count 4.98 M/mm3 (4.6-6.2); White Blood Count 7.6 K/mm3 (4.4-11.0)
[2018-10-28 09:47] LABS: POSITIVE COUNT NO; POSITIVE DIFFERENTIAL NO; POSITIVE MORPHOLOGY NO
[2018-11-11 12:27] LABS: Absolute Lymphocyte Count 1.18 X10^3/ul (0.83-4.51); Absolute Neutrophil Count 2.8 X10^3/uL (2.0-7.7); Basophil# 0.02 X10^3/uL; Basophil% 0.4 % (0-1); Eosinophil# 0.06 X10^3/uL; Eosinophils% 1.3 % (0-5); Hematocrit 43.8 % (40-54); Hemoglobin 14.1 g/dl (13.0-16.5); Lymphocyte # 1.18 X10^3/ul (4.0); Lymphocyte % 25.7 % (19-41); Mean Corp Hgb Conc 32.2 g/gl (32-36); Mean Corpuscular Hgb 28.9 pg (27.0-32.0); Mean Corpuscular Volume 89.8 fL (80-94); Mean Platelet Vol. 10.8 fl (6.2-12.0); Monocyte# 0.49 X10^3/uL; Monocyte% 10.7 % (0-10); Neutrophil # 2.82 X10^3/uL (2.7-7.7); Neutrophil % 61.5 % (47-70); Platelet Count 178 K/mm3 (150-450); RBC Distribution Width SD 45.1 fl (35.1-43.9); Red Blood Count 4.88 M/mm3 (4.6-6.2); White Blood Count 4.6 K/mm3 (4.4-11.0)
[2018-11-11 12:28] LABS: POSITIVE COUNT NO; POSITIVE DIFFERENTIAL NO; POSITIVE MORPHOLOGY NO
== END 2018-11-21 10:16 | disposition home or self-care (01) ==
LOC: LAB 11:49
PROVIDERS: Family Provider Family Medicine; PCP Family Medicine; Referring Provider Psychiatry & Neurology Child & Adolescent Psychiatry; Visit Provider Psychiatry & Neurology Child & Adolescent Psychiatry
DX: F84.0 Autistic disorder (principal); F91.9 Conduct disorder, unspecified; F71 Moderate intellectual disabilities
CPT/HCPCS: 36415; 85025

== ENCOUNTER 2018-12-10 12:59 | Outpatient (RCR) | payer MEDICARE, MEDICAID, SELFPAY ==
[2018-11-22 11:15] LABS: International Normalized Ratio 1.1; Prothrombin Time (Protime)PT. 13.6 SECONDS (11.7-14.9)
[2018-11-26 16:41] LABS: Absolute Lymphocyte Count 1.38 X10^3/ul (0.83-4.51); Absolute Neutrophil Count 3.1 X10^3/uL (2.0-7.7); Basophil# 0.04 X10^3/uL; Basophil% 0.8 % (0-1); Eosinophil# 0.13 X10^3/uL; Eosinophils% 2.5 % (0-5); Hematocrit 45.8 % (40-54); Hemoglobin 14.7 g/dl (13.0-16.5); Lymphocyte # 1.38 X10^3/ul (4.0); Lymphocyte % 26.7 % (19-41); Mean Corp Hgb Conc 32.1 g/gl (32-36); Mean Corpuscular Hgb 29.3 pg (27.0-32.0); Mean Corpuscular Volume 91.2 fL (80-94); Mean Platelet Vol. 11.1 fl (6.2-12.0); Monocyte# 0.56 X10^3/uL; Monocyte% 10.8 % (0-10); Neutrophil # 3.05 X10^3/uL (2.7-7.7); Platelet Count 152 K/mm3 (150-450); RBC Distribution Width CV 14.4 % (11.6-14.6); RBC Distribution Width SD 47.1 fl (35.1-43.9); Red Blood Count 5.02 M/mm3 (4.6-6.2); White Blood Count 5.2 K/mm3 (4.4-11.0)
[2018-11-26 17:01] LABS: POSITIVE COUNT NO; POSITIVE DIFFERENTIAL NO; POSITIVE MORPHOLOGY NO
[2018-12-10 13:16] LABS: Absolute Lymphocyte Count 1.24 X10^3/ul (0.83-4.51); Absolute Neutrophil Count 4.6 X10^3/uL (2.0-7.7); Basophil# 0.03 X10^3/uL; Basophil% 0.5 % (0-1); Eosinophils% 1.5 % (0-5); Hematocrit 46.6 % (40-54); Hemoglobin 15.4 g/dl (13.0-16.5); Lymphocyte # 1.24 X10^3/ul (4.0); Lymphocyte % 18.9 % (19-41); Mean Corpuscular Hgb 29.6 pg (27.0-32.0); Mean Corpuscular Volume 89.6 fL (80-94); Mean Platelet Vol. 10.9 fl (6.2-12.0); Monocyte# 0.58 X10^3/uL; Monocyte% 8.8 % (0-10); Neutrophil # 4.59 X10^3/uL (2.7-7.7); Platelet Count 172 K/mm3 (150-450); RBC Distribution Width CV 14.3 % (11.6-14.6); RBC Distribution Width SD 47.2 fl (35.1-43.9); White Blood Count 6.6 K/mm3 (4.4-11.0)
[2018-12-10 13:17] LABS: POSITIVE COUNT NO; POSITIVE DIFFERENTIAL NO; POSITIVE MORPHOLOGY NO
== END 2018-12-10 14:00 | disposition home or self-care (01) ==
LOC: LAB 12:59
PROVIDERS: Family Provider Family Medicine; PCP Family Medicine; Referring Provider Psychiatry & Neurology Child & Adolescent Psychiatry; Visit Provider Psychiatry & Neurology Child & Adolescent Psychiatry
DX: F84.0 Autistic disorder (principal); F91.9 Conduct disorder, unspecified; F71 Moderate intellectual disabilities
CPT/HCPCS: 36415; 85025; 85610

== ENCOUNTER 2019-01-21 16:22 | Outpatient (RCR) | payer MEDICARE, MEDICAID, SELFPAY ==
[2018-12-24 08:48] LABS: Absolute Lymphocyte Count 1.19 X10^3/ul (0.83-4.51); Absolute Neutrophil Count 3.5 X10^3/uL (2.0-7.7); Basophil# 0.03 X10^3/uL; Basophil% 0.6 % (0-1); Eosinophil# 0.14 X10^3/uL; Eosinophils% 2.6 % (0-5); Hematocrit 43.4 % (40-54); Hemoglobin 14.3 g/dl (13.0-16.5); Lymphocyte # 1.19 X10^3/ul (4.0); Lymphocyte % 21.9 % (19-41); Mean Corp Hgb Conc 32.9 g/gl (32-36); Mean Corpuscular Hgb 29.2 pg (27.0-32.0); Mean Corpuscular Volume 88.8 fL (80-94); Mean Platelet Vol. 10.7 fl (6.2-12.0); Monocyte# 0.59 X10^3/uL; Monocyte% 10.8 % (0-10); Neutrophil # 3.48 X10^3/uL (2.7-7.7); Neutrophil % 63.9 % (47-70); Platelet Count 158 K/mm3 (150-450); RBC Distribution Width CV 14.1 % (11.6-14.6); Red Blood Count 4.89 M/mm3 (4.6-6.2); White Blood Count 5.4 K/mm3 (4.4-11.0)
[2018-12-24 08:52] LABS: POSITIVE COUNT NO; POSITIVE DIFFERENTIAL NO; POSITIVE MORPHOLOGY NO
[2018-12-24 09:08] LABS: AST(SGOT) 20 U/L (15-37); Alanine Aminotransfer ALT/SGPT 41 U/L (16-61); Albumin, Serum 3.8 g/dL (3.2-5.0); Alkaline Phosphatase 109 U/L (45-117); Anion Gap 6 (5-15); BUN 17 mg/dL (7-18); BUN/Creat Ratio 18.9 RATIO (10-20); Calcium,Total 8.8 mg/dL (8.5-10.1); Chloride 106 mmol/L (98-107); EST Glomerular Filtration Rate 94 mL/min (>60); Est Glom Filt Rate - Afr Amer 113 mL/min (>60); Globulin 3.7 g/dL (2.2-4.2); Glucose 95 mg/dL (74-106); Potassium 4.1 mmol/L (3.5-5.1); Protein, Total 7.5 g/dL (6.4-8.2); Sodium Level 142 mmol/L (136-145)
[2018-12-24 09:20] LABS: Valproic Acid (Depakene) Level 40 ug/mL (50-100)
[2019-01-06 11:10] LABS: Absolute Lymphocyte Count 1.03 X10^3/ul (0.83-4.51); Absolute Neutrophil Count 3.4 X10^3/uL (2.0-7.7); Basophil# 0.02 X10^3/uL; Basophil% 0.4 % (0-1); Eosinophil# 0.08 X10^3/uL; Eosinophils% 1.6 % (0-5); Hemoglobin 14.5 g/dl (13.0-16.5); Lymphocyte # 1.03 X10^3/ul (4.0); Lymphocyte % 20.3 % (19-41); Mean Corp Hgb Conc 33.7 g/gl (32-36); Mean Corpuscular Hgb 29.7 pg (27.0-32.0); Mean Corpuscular Volume 87.9 fL (80-94); Mean Platelet Vol. 10.6 fl (6.2-12.0); Monocyte# 0.51 X10^3/uL; Monocyte% 10.1 % (0-10); Neutrophil # 3.42 X10^3/uL (2.7-7.7); Neutrophil % 67.4 % (47-70); POSITIVE COUNT NO; POSITIVE DIFFERENTIAL NO; POSITIVE MORPHOLOGY NO; Platelet Count 161 K/mm3 (150-450); RBC Distribution Width CV 13.9 % (11.6-14.6); RBC Distribution Width SD 44.6 fl (35.1-43.9); Red Blood Count 4.89 M/mm3 (4.6-6.2); White Blood Count 5.1 K/mm3 (4.4-11.0)
[2019-01-21 17:37] LABS: Absolute Neutrophil Count 2.2 X10^3/uL (2.0-7.7); Basophil# 0.04 X10^3/uL; Basophil% 0.9 % (0-1); Eosinophil# 0.09 X10^3/uL; Eosinophils% 2.1 % (0-5); Hematocrit 42.6 % (40-54); Hemoglobin 14.5 g/dl (13.0-16.5); Lymphocyte % 34.3 % (19-41); Mean Corpuscular Hgb 29.9 pg (27.0-32.0); Mean Corpuscular Volume 87.8 fL (80-94); Mean Platelet Vol. 11.1 fl (6.2-12.0); Monocyte% 11.4 % (0-10); Neutrophil # 2.23 X10^3/uL (2.7-7.7); Neutrophil % 51.1 % (47-70); POSITIVE COUNT NO; POSITIVE DIFFERENTIAL NO; POSITIVE MORPHOLOGY NO; Platelet Count 139 K/mm3 (150-450); RBC Distribution Width CV 13.8 % (11.6-14.6); RBC Distribution Width SD 43.9 fl (35.1-43.9); Red Blood Count 4.85 M/mm3 (4.6-6.2); White Blood Count 4.4 K/mm3 (4.4-11.0)
== END 2019-01-21 20:00 | disposition home or self-care (01) ==
LOC: LAB 16:22
PROVIDERS: Family Provider Family Medicine; PCP Family Medicine; Referring Provider Psychiatry & Neurology Child & Adolescent Psychiatry; Visit Provider Psychiatry & Neurology Child & Adolescent Psychiatry
DX: F84.0 Autistic disorder (principal); F91.9 Conduct disorder, unspecified; F71 Moderate intellectual disabilities
CPT/HCPCS: 36415; 80053; 80164; 85025

== ENCOUNTER 2019-02-18 08:47 | Outpatient (RCR) | payer MEDICARE, MEDICAID, SELFPAY ==
[2019-02-05 09:46] LABS: Absolute Lymphocyte Count 1.25 X10^3/ul (0.83-4.51); Basophil# 0.04 X10^3/uL; Eosinophil# 0.11 X10^3/uL; Eosinophils% 2.8 % (0-5); Hematocrit 45.3 % (40-54); Hemoglobin 15.2 g/dl (13.0-16.5); Lymphocyte # 1.25 X10^3/ul (4.0); Lymphocyte % 32.1 % (19-41); Mean Corp Hgb Conc 33.6 g/gl (32-36); Mean Corpuscular Hgb 28.8 pg (27.0-32.0); Mean Platelet Vol. 11.1 fl (6.2-12.0); Monocyte# 0.51 X10^3/uL; Monocyte% 13.1 % (0-10); Neutrophil # 1.98 X10^3/uL (2.7-7.7); Neutrophil % 50.7 % (47-70); POSITIVE COUNT NO; POSITIVE DIFFERENTIAL NO; POSITIVE MORPHOLOGY NO; Platelet Count 153 K/mm3 (150-450); RBC Distribution Width CV 13.6 % (11.6-14.6); RBC Distribution Width SD 42.2 fl (35.1-43.9); Red Blood Count 5.27 M/mm3 (4.6-6.2); White Blood Count 3.9 K/mm3 (4.4-11.0)
[2019-02-18 10:08] LABS: Absolute Lymphocyte Count 1.05 X10^3/ul (0.83-4.51); Absolute Neutrophil Count 3.4 X10^3/uL (2.0-7.7); Basophil# 0.03 X10^3/uL; Basophil% 0.6 % (0-1); Eosinophil# 0.09 X10^3/uL; Eosinophils% 1.8 % (0-5); Hematocrit 45.4 % (40-54); Hemoglobin 15.5 g/dl (13.0-16.5); Lymphocyte # 1.05 X10^3/ul (4.0); Lymphocyte % 20.7 % (19-41); Mean Corp Hgb Conc 34.1 g/gl (32-36); Mean Corpuscular Hgb 29.1 pg (27.0-32.0); Mean Corpuscular Volume 85.3 fL (80-94); Monocyte# 0.49 X10^3/uL; Monocyte% 9.7 % (0-10); Neutrophil # 3.39 X10^3/uL (2.7-7.7); Neutrophil % 66.8 % (47-70); POSITIVE COUNT NO; POSITIVE DIFFERENTIAL NO; POSITIVE MORPHOLOGY NO; Platelet Count 137 K/mm3 (150-450); RBC Distribution Width CV 13.5 % (11.6-14.6); RBC Distribution Width SD 42.1 fl (35.1-43.9); Red Blood Count 5.32 M/mm3 (4.6-6.2); White Blood Count 5.1 K/mm3 (4.4-11.0)
== END 2019-02-18 10:00 | disposition home or self-care (01) ==
LOC: LAB 08:47
PROVIDERS: Family Provider Family Medicine; PCP Family Medicine; Referring Provider Psychiatry & Neurology Child & Adolescent Psychiatry; Visit Provider Psychiatry & Neurology Child & Adolescent Psychiatry
DX: F91.9 Conduct disorder, unspecified (principal); F71 Moderate intellectual disabilities; F84.0 Autistic disorder
CPT/HCPCS: 36415; 85025

== ENCOUNTER 2019-03-12 18:23 | Emergency (ER) | payer MEDICARE, MEDICAID, SELFPAY ==
[2019-03-12 18:25] VITALS: BP 160/81; PULSE 69; RESP 17; TEMP 36.5; O2SAT 94; BMI 62.2
--- NOTE | 2019-03-12 18:37 | RAD_ITS ---
STUDY: X-RAY - FACIAL BONES REASON FOR STUDY: Male, 53 years old. Trauma TECHNIQUE: 3 view(s) of the facial bones. COMPARISON: None. FINDINGS: Normal bilateral frontozygomatic and zygomatic-temporal arches. Normal bilateral medial and inferior orbital nixon. Normal bilateral orbits. Normal visualized nasal bones. Normal anterior nasal spine. The remaining visualized osseous structures are normal. Normal visualized paranasal sinuses. RAD/Facial Bones min 3 Views IMPRESSION: Normal x-ray examination of the facial bones. Electronically Signed: Jd Batres MD at 19:45 EDT , Service support ,
--- NOTE | 2019-03-12 18:37 | RAD_ITS ---
STUDY: X-RAY - CERVICAL SPINE REASON FOR EXAM: Male, 53 years old. Trauma TECHNIQUE: 4 view(s) of the cervical spine were obtained. COMPARISON: None FINDINGS: Normal anterior atlantoaxial articulation. Normal odontoid process. Decreased cervical lordosis. No evidence for acute fracture or subluxation. Multilevel disc space narrowing and osteophytic spurring. The soft tissue structures are unremarkable. RAD/Cerv Spine 2 or 3 Views IMPRESSION: Moderate spondylosis. No evidence for acute fracture. Electronically Signed: Jd Batres MD at 19:46 EDT , Service support ,
--- NOTE | 2019-03-12 18:38 | ED.DCSUM_ITS ---
History of Present Illness Chief Complaint: Fall Informant: Patient Limited by: - - Cognitive impairment Onset: Today Context: Sudden Onset Quality: Apparent fall Location: Neck pain and left face pain Current Severity: Mild Maximum Severity: Moderate Worsened by: Touching Relieved by: Nothing Associated Symptoms: History limited Narrative: Patient is a 53-year-old male from [facility] who was transported by person from another facility who has no knowledge of patient's normal behavior, past history or what occurred. He complains of neck pain and points to both right and left side posteriorly. He also reports left facial pain. He is not able to tell me what happened. He denies head pain. He denies numbness or tingling his arms or legs. He denies cardiac or respiratory symptoms. There is no history of vomiting. 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 Denies: Myalgias, Arthralgias, Back pain, Swelling, Extremity Pain, -, - - He does report left-sided facial pain Skin: Reports: Abrasions, Wounds - Laceration over the left maxillary region 1.0 cm. Denies: Rash Neurological: Denies: Headache, Weakness, Parasthesia Hematologic: Denies: Easy bruising, Easy bleeding Physical Exam Vital Signs/Narrative: Vital Signs Temp Pulse Resp BP Pulse Ox 03/12/19 18:25 97.7 F L 69 17 160/81 H 94 Inital Vital Signs reviewed: Yes General: Well nourished, Well developed, No Acute Distress. Negative for: Obese Head: Normocephalic, Trauma, Tenderness - With significant okay Eyes: Perrl - Serious, EOMI. Negative for: Pale conjunctiva, Scleral icterus ENT: Moist mucous membranes, No rhinorrhea, TM's clear. Negative for: Dry mucous membranes, Nasal congestion, Sinus tenderness Neck: Negative for: Supple, Nontender, No lymphadenopathy, No JVD Cardiovascular: Negative for: Regular rate, Regular rhythm, No murmurs, Normal S1, Normal S2 Respiratory: Negative for: No distress, CTA bilaterally, Chest nontender Extremities: Nontender, No edema Skin: Trauma. Negative for: Normal color, Cyanosis, Diaphoresis, Jaundice Neurological: Negative for: Alert, Cranial nerves II-XII grossly intact, Normal Strength, Normal Sensation, Normal DTR Psychological: Negative for: Normal affect, Normal Mood Diagnostic/Tx/Re-eval Chest X-Ray - ED: Read by ED Physician, - - 4 view x-ray of the cervical spine reveals degenerative changes. There is no soft tissue swelling. There is no evidence subluxation, dislocation or fracture. 3 views of the facial bones was obtained. There is no evidence of acute fracture. One view is slightly rotated and reveals a radiolucent line. Do not believe this to be a fracture. - Medical Decision Making Because patient complains of neck pain will obtain x-ray of the neck. Will obtain facial x-rays as well to evaluate for blowout fracture/zygomatic arch fracture. Laceration will require repair. Please read written note. Procedures - Lacerations No standard instances Length: 0.47 in Depth: Sub Q Shape: Linear Prep: Shure-Clens, Chlorhexadine Laceration repair: Irrigated, Skin sutures Irrigated (ml): 100 Number of Sutures/Oj Ann: 3 - Simple interrupted Suture Information: Ethilon, 6-0 ED Disposition - Plan for ED Patient: Disposition: Home or Assisted Living Diagnosis: Sprain of ligaments of cervical spine, initial encounter, Contusion of face, Simple laceration of face Instructions: FALL, Uncertain Cause, FACIAL CONTUSION, No Wakeup, LACERATION, Face (Suture or Tape) Referrals: Abe Moralez MD [Primary Care Provider] - 5 Days for suture removal
[2019-03-12] MEDS: Diphth,Pertuss(Acell),Tet Vac 0.5 ML Vial IM (19:34)
[2019-03-12 20:24] VITALS: BP 140/109; PULSE 60; RESP 18; O2SAT 99
[2019-03-12 20:32] LABS: Bacteria 0 SEEN /hpf (None Seen); Mucous, Urine 0 SEEN /hpf (<or=2+); Red Blood Cells-Urine 0 SEEN /hpf (0-5); Squamous Epithelial Cells - UA 0 SEEN /hpf (0-5); White Blood Cells 0 SEEN /hpf (0-5)
[2019-03-12] MEDS: Acetaminophen 500 MG Tablet 1000 MG PO (20:43)
[2019-03-12 20:46] LABS: Color, Urine Yellow (Yellow); Glucose, Dipstick Normal (Normal); Ketone-Dipstick Negative (Negative); Leukocyte Esterase-Dipstick Negative /ul (Negative); Nitrite-Dipstick Negative (Negative); Occult Blood-Urine Negative /ul (Negative); Protein-Dipstick Negative (Negative); Urine Bilirubin Dipstick Negative (Negative); Urine Clarity Clear (Clear); Urine Urobilinogen Normal (Normal)
[2019-03-12 22:19] VITALS: BP 149/100; PULSE 65; RESP 17; O2SAT 98
[2019-03-13 00:17] VITALS: BP 135/79; PULSE 62; RESP 14; O2SAT 98
[2019-03-13 00:24] VITALS: BP 135/79; PULSE 62; RESP 18; O2SAT 97
== END 2019-03-13 00:25 | disposition home or self-care (01) ==
PROVIDERS: Emergency Provider Emergency Medicine; Family Provider Family Medicine; PCP Family Medicine
DX: S13.9XXA Sprain of joints and ligaments of unspecified parts of neck, initial encounter (principal); S01.81XA Laceration without foreign body of other part of head, initial encounter; X58.XXXA Exposure to other specified factors, initial encounter; Y93.89 Activity, other specified; Y92.199 Unspecified place in other specified residential institution as the place of occurrence of the external cause; Y99.8 Other external cause status
CPT/HCPCS: 12011; 70150; 72040; 81001; 90471; 90715; 99283

== ENCOUNTER 2019-03-19 14:45 | Outpatient (RCR) | payer MEDICARE, MEDICAID, SELFPAY ==
[2019-03-04 13:43] LABS: Absolute Lymphocyte Count 1.21 X10^3/ul (0.83-4.51); Absolute Neutrophil Count 2.8 X10^3/uL (2.0-7.7); Basophil# 0.04 X10^3/uL; Basophil% 0.9 % (0-1); Eosinophil# 0.09 X10^3/uL; Eosinophils% 1.9 % (0-5); Hematocrit 45.2 % (40-54); Hemoglobin 15.3 g/dl (13.0-16.5); Lymphocyte # 1.21 X10^3/ul (4.0); Lymphocyte % 26.1 % (19-41); Mean Corp Hgb Conc 33.8 g/gl (32-36); Mean Corpuscular Hgb 29.4 pg (27.0-32.0); Mean Corpuscular Volume 86.9 fL (80-94); Monocyte# 0.49 X10^3/uL; Monocyte% 10.6 % (0-10); Neutrophil # 2.79 X10^3/uL (2.7-7.7); Neutrophil % 60.3 % (47-70); POSITIVE COUNT NO; POSITIVE DIFFERENTIAL NO; POSITIVE MORPHOLOGY NO; Platelet Count 147 K/mm3 (150-450); RBC Distribution Width CV 13.7 % (11.6-14.6); White Blood Count 4.6 K/mm3 (4.4-11.0)
[2019-03-19 15:51] LABS: Absolute Lymphocyte Count 1.18 X10^3/ul (0.83-4.51); Absolute Neutrophil Count 3.5 X10^3/uL (2.0-7.7); Basophil# 0.02 X10^3/uL; Basophil% 0.4 % (0-1); Eosinophils% 1.9 % (0-5); Hematocrit 43.3 % (40-54); Hemoglobin 14.6 g/dl (13.0-16.5); Lymphocyte # 1.18 X10^3/ul (4.0); Lymphocyte % 22.5 % (19-41); Mean Corp Hgb Conc 33.7 g/gl (32-36); Mean Corpuscular Hgb 29.6 pg (27.0-32.0); Mean Corpuscular Volume 87.8 fL (80-94); Mean Platelet Vol. 10.8 fl (6.2-12.0); Monocyte# 0.45 X10^3/uL; Monocyte% 8.6 % (0-10); Neutrophil % 66.6 % (47-70); Platelet Count 173 K/mm3 (150-450); RBC Distribution Width CV 13.6 % (11.6-14.6); RBC Distribution Width SD 43.4 fl (35.1-43.9); Red Blood Count 4.93 M/mm3 (4.6-6.2); White Blood Count 5.3 K/mm3 (4.4-11.0)
[2019-03-19 15:52] LABS: POSITIVE COUNT NO; POSITIVE DIFFERENTIAL NO; POSITIVE MORPHOLOGY NO
== END 2019-03-19 15:00 | disposition home or self-care (01) ==
LOC: LAB 14:45
PROVIDERS: Family Provider Family Medicine; PCP Family Medicine; Referring Provider Psychiatry & Neurology Child & Adolescent Psychiatry; Visit Provider Psychiatry & Neurology Child & Adolescent Psychiatry
DX: F91.9 Conduct disorder, unspecified (principal); F71 Moderate intellectual disabilities; F84.0 Autistic disorder
CPT/HCPCS: 36415; 85025

== ENCOUNTER 2019-04-15 11:28 | Outpatient (RCR) | payer MEDICARE, MEDICAID, SELFPAY ==
[2019-03-28 15:26] LABS: Absolute Lymphocyte Count 1.11 X10^3/ul (0.83-4.51); Absolute Neutrophil Count 3.1 X10^3/uL (2.0-7.7); Basophil# 0.03 X10^3/uL; Basophil% 0.6 % (0-1); Eosinophils% 2.1 % (0-5); Hematocrit 45.6 % (40-54); Hemoglobin 15.2 g/dl (13.0-16.5); Lymphocyte # 1.11 X10^3/ul (4.0); Lymphocyte % 23.1 % (19-41); Mean Corp Hgb Conc 33.3 g/gl (32-36); Mean Corpuscular Hgb 29.7 pg (27.0-32.0); Mean Corpuscular Volume 89.1 fL (80-94); Mean Platelet Vol. 11.2 fl (6.2-12.0); Monocyte# 0.42 X10^3/uL; Monocyte% 8.8 % (0-10); Neutrophil # 3.13 X10^3/uL (2.7-7.7); Neutrophil % 65.2 % (47-70); Platelet Count 163 K/mm3 (150-450); RBC Distribution Width CV 13.7 % (11.6-14.6); RBC Distribution Width SD 44.6 fl (35.1-43.9); Red Blood Count 5.12 M/mm3 (4.6-6.2); White Blood Count 4.8 K/mm3 (4.4-11.0)
[2019-03-28 15:47] LABS: POSITIVE COUNT NO; POSITIVE DIFFERENTIAL NO; POSITIVE MORPHOLOGY NO
[2019-03-28 16:25] LABS: AST(SGOT) 26 U/L (15-37); Alanine Aminotransfer ALT/SGPT 40 U/L (16-61); Albumin, Serum 4.1 g/dL (3.2-5.0); Alkaline Phosphatase 140 U/L (45-117); Anion Gap 7 (5-15); BUN 13 mg/dL (7-18); BUN/Creat Ratio 12.9 RATIO (10-20); Calcium,Total 9.2 mg/dL (8.5-10.1); Chloride 101 mmol/L (98-107); Creatinine, Serum 1.01 mg/dL (0.70-1.30); EST Glomerular Filtration Rate 82 mL/min (>60); Est Glom Filt Rate - Afr Amer 99 mL/min (>60); Glucose 99 mg/dL (74-106); Potassium 4.4 mmol/L (3.5-5.1); Protein, Total 8.1 g/dL (6.4-8.2); Sodium Level 143 mmol/L (136-145); Valproic Acid (Depakene) Level 35 ug/mL (50-100)
[2019-04-01 14:55] LABS: Absolute Lymphocyte Count 0.99 X10^3/ul (0.83-4.51); Absolute Neutrophil Count 2.2 X10^3/uL (2.0-7.7); Basophil# 0.03 X10^3/uL; Basophil% 0.8 % (0-1); Eosinophil# 0.09 X10^3/uL; Eosinophils% 2.5 % (0-5); Hematocrit 43.8 % (40-54); Hemoglobin 14.7 g/dl (13.0-16.5); Lymphocyte # 0.99 X10^3/ul (4.0); Lymphocyte % 27.4 % (19-41); Mean Corp Hgb Conc 33.6 g/gl (32-36); Mean Corpuscular Hgb 29.1 pg (27.0-32.0); Mean Corpuscular Volume 86.7 fL (80-94); Mean Platelet Vol. 11.6 fl (6.2-12.0); Monocyte# 0.33 X10^3/uL; Monocyte% 9.1 % (0-10); Neutrophil # 2.17 X10^3/uL (2.7-7.7); Neutrophil % 60.2 % (47-70); POSITIVE COUNT NO; POSITIVE DIFFERENTIAL NO; POSITIVE MORPHOLOGY NO; Platelet Count 171 K/mm3 (150-450); RBC Distribution Width CV 13.5 % (11.6-14.6); RBC Distribution Width SD 42.1 fl (35.1-43.9); Red Blood Count 5.05 M/mm3 (4.6-6.2); White Blood Count 3.6 K/mm3 (4.4-11.0)
[2019-04-15 12:45] LABS: Absolute Lymphocyte Count 1.09 X10^3/uL (0.83-4.51); Absolute Neutrophil Count 2.1 X10^3/uL (2.0-7.7); Basophil# 0.04 X10^3/uL; Basophil% 1.1 % (0-1); Eosinophil# 0.09 X10^3/uL; Eosinophils% 2.5 % (0-5); Hematocrit 43.9 % (40-54); Hemoglobin 14.6 g/dL (13.0-16.5); Lymphocyte # 1.09 X10^3/ul (4.0); Lymphocyte % 30.1 % (19-41); Mean Corp Hgb Conc 33.3 g/dL (32-36); Mean Corpuscular Hgb 29.3 pg (27.0-32.0); Mean Corpuscular Volume 88.2 fL (80-94); Mean Platelet Vol. 11.4 fl (6.2-12.0); Monocyte# 0.29 X10^3/uL; NRBC Flagged by Analyzer 0 % (0-5); Platelet Count 139 K/mm3 (150-450); RBC Distribution Width CV 13.4 % (11.6-14.6); RBC Distribution Width SD 43.5 fl (35.1-43.9); Red Blood Count 4.98 M/mm3 (4.6-6.2); White Blood Count 3.6 K/mm3 (4.4-11.0)
== END 2019-04-23 16:00 | disposition home or self-care (01) ==
LOC: LAB 11:28
PROVIDERS: Family Provider Family Medicine; PCP Family Medicine; Referring Provider Psychiatry & Neurology Child & Adolescent Psychiatry; Visit Provider Psychiatry & Neurology Child & Adolescent Psychiatry
DX: F91.9 Conduct disorder, unspecified (principal); F71 Moderate intellectual disabilities; F84.0 Autistic disorder
CPT/HCPCS: 36415; 80053; 80164; 85025

== ENCOUNTER 2019-05-16 15:07 | Outpatient (RCR) | payer MEDICARE, MEDICAID, SELFPAY ==
[2019-04-30 10:13] LABS: Absolute Lymphocyte Count 0.97 X10^3/uL (0.83-4.51); Absolute Neutrophil Count 2.3 X10^3/uL (2.0-7.7); Basophil# 0.04 X10^3/uL; Basophil% 1.1 % (0-1); Eosinophils% 2.6 % (0-5); Hematocrit 45.2 % (40-54); Hemoglobin 15.1 g/dL (13.0-16.5); Lymphocyte # 0.97 X10^3/ul (4.0); Lymphocyte % 25.6 % (19-41); Mean Corp Hgb Conc 33.4 g/dL (32-36); Mean Corpuscular Hgb 29.8 pg (27.0-32.0); Mean Corpuscular Volume 89.2 fL (80-94); Monocyte# 0.41 X10^3/uL; Monocyte% 10.8 % (0-10); NRBC Flagged by Analyzer 0 % (0-5); Neutrophil # 2.25 X10^3/uL (2.7-7.7); Neutrophil % 59.4 % (47-70); Platelet Count 162 K/mm3 (150-450); RBC Distribution Width CV 13.2 % (11.6-14.6); RBC Distribution Width SD 42.5 fl (35.1-43.9); Red Blood Count 5.07 M/mm3 (4.6-6.2); White Blood Count 3.8 K/mm3 (4.4-11.0)
[2019-05-16 16:13] LABS: Absolute Lymphocyte Count 1.04 X10^3/uL (0.83-4.51); Absolute Neutrophil Count 4.3 X10^3/uL (2.0-7.7); Basophil# 0.04 X10^3/uL; Basophil% 0.7 % (0-1); Eosinophil# 0.11 X10^3/uL; Eosinophils% 1.8 % (0-5); Hematocrit 45.4 % (40-54); Hemoglobin 14.9 g/dL (13.0-16.5); Lymphocyte # 1.04 X10^3/ul (4.0); Lymphocyte % 17.1 % (19-41); Mean Corp Hgb Conc 32.8 g/dL (32-36); Mean Corpuscular Hgb 30.2 pg (27.0-32.0); Mean Corpuscular Volume 91.9 fL (80-94); Mean Platelet Vol. 11.2 fl (6.2-12.0); Monocyte% 9.9 % (0-10); NRBC Flagged by Analyzer 0 % (0-5); Neutrophil # 4.28 X10^3/uL (2.7-7.7); Neutrophil % 70.2 % (47-70); Platelet Count 155 K/mm3 (150-450); RBC Distribution Width CV 13.5 % (11.6-14.6); RBC Distribution Width SD 45.9 fl (35.1-43.9); Red Blood Count 4.94 M/mm3 (4.6-6.2); White Blood Count 6.1 K/mm3 (4.4-11.0)
== END 2019-05-16 18:00 | disposition home or self-care (01) ==
LOC: LAB 15:07
PROVIDERS: Family Provider Family Medicine; PCP Family Medicine; Referring Provider Psychiatry & Neurology Child & Adolescent Psychiatry; Visit Provider Psychiatry & Neurology Child & Adolescent Psychiatry
DX: F91.9 Conduct disorder, unspecified (principal); F71 Moderate intellectual disabilities; F84.0 Autistic disorder
CPT/HCPCS: 36415; 85025

== ENCOUNTER 2019-06-12 14:01 | Outpatient (RCR) | payer MEDICARE, MEDICAID, SELFPAY ==
[2019-05-27 11:01] LABS: Absolute Neutrophil Count 3.7 X10^3/uL (2.0-7.7); Basophil# 0.04 X10^3/uL; Basophil% 0.7 % (0-1); Eosinophil# 0.11 X10^3/uL; Hemoglobin 14.7 g/dL (13.0-16.5); Mean Corp Hgb Conc 32.7 g/dL (32-36); Mean Corpuscular Hgb 29.2 pg (27.0-32.0); Mean Corpuscular Volume 89.3 fL (80-94); Mean Platelet Vol. 11.2 fl (6.2-12.0); Monocyte# 0.56 X10^3/uL; Monocyte% 10.2 % (0-10); NRBC Flagged by Analyzer 0 % (0-5); Neutrophil # 3.67 X10^3/uL (2.7-7.7); Neutrophil % 66.6 % (47-70); Platelet Count 160 K/mm3 (150-450); RBC Distribution Width CV 13.6 % (11.6-14.6); RBC Distribution Width SD 44.4 fl (35.1-43.9); Red Blood Count 5.04 M/mm3 (4.6-6.2); White Blood Count 5.5 K/mm3 (4.4-11.0)
[2019-06-12 14:53] LABS: Absolute Lymphocyte Count 1.21 X10^3/uL (0.83-4.51); Basophil# 0.05 X10^3/uL; Basophil% 0.8 % (0-1); Eosinophils% 1.7 % (0-5); Hematocrit 45.4 % (40-54); Hemoglobin 14.6 g/dL (13.0-16.5); Lymphocyte # 1.21 X10^3/ul (4.0); Lymphocyte % 20.4 % (19-41); Mean Corp Hgb Conc 32.2 g/dL (32-36); Mean Corpuscular Hgb 29.1 pg (27.0-32.0); Mean Corpuscular Volume 90.6 fL (80-94); Mean Platelet Vol. 11.2 fl (6.2-12.0); Monocyte# 0.54 X10^3/uL; Monocyte% 9.1 % (0-10); NRBC Flagged by Analyzer 0 % (0-5); Neutrophil # 3.99 X10^3/uL (2.7-7.7); Neutrophil % 67.5 % (47-70); Platelet Count 155 K/mm3 (150-450); RBC Distribution Width CV 13.6 % (11.6-14.6); RBC Distribution Width SD 45.3 fl (35.1-43.9); Red Blood Count 5.01 M/mm3 (4.6-6.2); White Blood Count 5.9 K/mm3 (4.4-11.0)
== END 2019-06-12 16:00 | disposition home or self-care (01) ==
LOC: LAB 14:01
PROVIDERS: Family Provider Family Medicine; PCP Family Medicine; Referring Provider Psychiatry & Neurology Child & Adolescent Psychiatry; Visit Provider Psychiatry & Neurology Child & Adolescent Psychiatry
DX: F91.9 Conduct disorder, unspecified (principal); F71 Moderate intellectual disabilities; F84.0 Autistic disorder
CPT/HCPCS: 36415; 85025

== ENCOUNTER 2019-07-07 20:32 | Emergency (ER) | payer MEDICARE, MEDICAID, SELFPAY ==
[2019-07-07 20:33] VITALS: BP 144/84; PULSE 63; RESP 16; TEMP 36.8; O2SAT 97; BMI 27.1
--- NOTE | 2019-07-07 21:00 | ED.RN ---
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 instructed that patient is up next for room, but staff still wishes to take pt to [facility].
--- NOTE | 2019-07-07 21:47 | RAD_ITS ---
STUDY: X-RAY - CERVICAL SPINE REASON FOR EXAM: Male, 54 years old. Neck pain. TECHNIQUE: 5 view(s) of the cervical spine were obtained. COMPARISON: March 12, 2019 FINDINGS: Normal anterior atlantoaxial articulation. Normal odontoid process. There is stable loss of the normal cervical lordosis. There is multi-level endplate spondylosis. There is multi-level degenerative disc disease with multilevel disc space narrowing. The soft tissue structures are unremarkable. RAD/Cerv Spine 2 or 3 Views IMPRESSION: Degenerative changes. Electronically Signed: Shannan Weldon MD at 22:34 EDT Tel , Service support ,
[2019-07-07] MEDS: Acetaminophen 500 MG Tablet 1000 MG PO (22:03)
--- NOTE | 2019-07-07 22:03 | ED.DCSUM_ITS ---
- ER Visit Summary Date of Service: 07/07/19 Chief Complaint: Fall History of Present Illness: The patient is a 54 M who presents after a fall that occurred today. Patient has a history of frequent falls. Patient tripped over his shoes today. Patient hit his head. Patient complains of pain over the left forehead and in his neck. Patient denies any loss of consciousness. Patient denies any paresthesias or weakness. Caregiver states patient's immunizations are up-to-date. Physical Examination: Vital signs are stable. Patient is afebrile. Patient is in no acute distress. Skin is warm and dry. There is a 2 cm full-thickness linear laceration of a left frontal/temporal area. There is also a 1 cm full- thickness linear laceration over the lateral aspect of the left upper eyelid. There is no active bleeding noted. There is minimal gapping of the wound margins. There is no bony crepitance or step-off. Cranial nerves II through XII are intact. Strength is 5/5 bilateral knee upper and lower extremities. Musculoskeletal exam reveals tenderness over the cervical spine. There is no bony crepitance or step-off. Range of motion was slightly limited in the cervical spine secondary to pain. Extremities are intact. There are no deformities noted. There is good range of motion. Heart was regular rate and rhythm. Lungs are clear and equal bilaterally. Abdomen is soft and nontender. Test Results: X-rays of the cervical spine were obtained. There were degenerative changes. There is no acute fracture. These were interpreted by the radiologist and reviewed by myself. Emergency Department Course and Treatment: The wounds were cleaned and closed with Dermabond skin adhesive. Patient and caregiver were instructed to avoid bacitracin, Neosporin, or Vaseline based ointment. Patient and caregiver were instructed to follow-up with the patient's primary care physician in 5 to 7 days. Patient and caregiver understood and was agreeable with the plan. All questions were answered. Patient was released back to full duty at work. Disposition: Discharge home Impression: 1. Forehead laceration 2. Left upper eyelid laceration 3. Acute cervical strain This note was generated with [employer] software. It may contain incorrect words, spelling, and punctuation that were not noted in review of the chart prior to signing ED Disposition - Plan for ED Patient: Disposition: Home or Assisted Living Instructions: FALL, Mechanical, LACERATION, Face (Skin Glue) Referrals: Abe Moralez MD [Primary Care Provider] - 5-7 Days
[2019-07-07 23:06] VITALS: BP 135/70; PULSE 62; RESP 14; RESP 16; O2SAT 97; O2SAT 98
== END 2019-07-07 23:34 | disposition home or self-care (01) ==
LOC: ED 22:14
PROVIDERS: Emergency Provider Emergency Medicine; Family Provider Family Medicine; PCP Family Medicine
DX: S01.81XA Laceration without foreign body of other part of head, initial encounter (principal); S01.112A Laceration without foreign body of left eyelid and periocular area, initial encounter; S16.1XXA Strain of muscle, fascia and tendon at neck level, initial encounter; W01.0XXA Fall on same level from slipping, tripping and stumbling without subsequent striking against object, initial encounter; Z91.81 History of falling; Y93.01 Activity, walking, marching and hiking; Y92.89 Other specified places as the place of occurrence of the external cause; Y99.8 Other external cause status
CPT/HCPCS: 12013; 72040; 99282

== ENCOUNTER 2019-07-08 18:59 | Emergency (ER) | payer MEDICARE, MEDICAID, SELFPAY ==
[2019-07-07 20:33] VITALS: BMI 27.1
[2019-07-08 19:02] VITALS: BP 137/96; PULSE 61; RESP 16; TEMP 36.4; O2SAT 97; BMI 27.6
[2019-07-08 19:51] VITALS: RESP 18
--- NOTE | 2019-07-08 20:06 | RAD_ITS ---
STUDY: X-RAY - LEFT ELBOW REASON FOR EXAM: Male, 54 years old. Pain. TECHNIQUE: 3 view(s) of the elbow. COMPARISON: None. FINDINGS: Normal visualized humerus, radius and ulna. There is degenerative arthrosis of the radiocapitellar and ulnotrochlear articulations. There is an enthesophyte arising from the olecranon. There is soft tissue swelling dorsal to the olecranon. RAD/Elbow min 3 Views IMPRESSION: Degenerative changes. Electronically Signed: Shannan Weldon MD at 20:25 EDT Tel , Service support ,
--- NOTE | 2019-07-08 20:08 | ED.VISSUMM ---
- ER Visit Summary Date of Service: 07/08/19 Chief Complaint: Left elbow redness History of Present Illness: The patient is a 54 M presenting with left elbow redness. Patient was seen at urgent care and sent to the ED for further evaluation. He had a fall June 17, 2019 with bilateral elbow injuries. On June 24 he continued with elbow pain and swelling had normal x-rays and was prescribed Keflex and Bactroban at that time. He fell again yesterday and was reevaluated. He presented to urgent care today with concern of left elbow redness and swelling. Patient denies elbow pain. No fever. No other complaints. Physical Examination: Vitals are stable. Patient is afebrile. Alert no acute distress. HEENT exam is unremarkable. Neck is supple. Lungs are clear and equal bilaterally. Heart is regular rate and rhythm. Abdomen is soft nontender nondistended. Extremities erythema overlying olecranon. Active full range of motion. Nontender to palpation. Neurovascularly intact distally. Skin is warm and dry. No focal neurologic deficit. Remainder of exam is unremarkable. Emergency Department Course and Treatment: Patient was given clindamycin IV. Left elbow x-ray shows degenerative changes. Patient is given a prescription for clindamycin. He is able to range his elbow without any difficulty. He denies any pain at this time. Advised to follow-up with his primary care physician. Advised return to the ED for worsening complaints. Disposition: Discharge home Impression: Olecranon bursitis This note was generated with [employer] dictation software. It may contain incorrect words, spelling, and punctuation that were not noted in review of the chart prior to signing ED Disposition - Plan for ED Patient: Instructions: Bursitis, Elbow (Olecranon) Prescriptions: Clindamycin [Cleocin] 300 mg PO 4X/DAY #80 cap Prescription Printed Referrals: Abe Moralez MD [Primary Care Provider] -
--- NOTE | 2019-07-08 20:43 | ED.DEP ---
ED Disposition - Plan for ED Patient: Instructions: Bursitis, Elbow (Olecranon) Prescriptions: Clindamycin [Cleocin] 300 mg PO 4X/DAY #80 capsule Referrals: Abe Moralez MD [Primary Care Provider] -
[2019-07-08 21:42] VITALS: BP 132/91; PULSE 56; RESP 18; O2SAT 96
== END 2019-07-08 21:43 | disposition home or self-care (01) ==
LOC: ED 20:23
PROVIDERS: Emergency Provider Emergency Medicine; Family Provider Family Medicine; PCP Family Medicine
DX: M70.22 Olecranon bursitis, left elbow (principal); F91.9 Conduct disorder, unspecified; F84.0 Autistic disorder
CPT/HCPCS: 36415; 73080; 85025; 96365; 99284; J7040; A4216

== ENCOUNTER 2019-07-24 14:24 | Outpatient (RCR) | payer MEDICARE, MEDICAID, SELFPAY ==
[2019-06-24 10:34] LABS: Absolute Lymphocyte Count 0.95 X10^3/uL (0.83-4.51); Absolute Neutrophil Count 2.9 X10^3/uL (2.0-7.7); Basophil# 0.04 X10^3/uL; Basophil% 0.9 % (0-1); Eosinophil# 0.08 X10^3/uL; Eosinophils% 1.8 % (0-5); Hematocrit 43.3 % (40-54); Hemoglobin 14.4 g/dL (13.0-16.5); Lymphocyte # 0.95 X10^3/ul (4.0); Lymphocyte % 21.4 % (19-41); Mean Corp Hgb Conc 33.3 g/dL (32-36); Mean Corpuscular Hgb 29.9 pg (27.0-32.0); Mean Corpuscular Volume 89.8 fL (80-94); Mean Platelet Vol. 10.8 fl (6.2-12.0); Monocyte# 0.49 X10^3/uL; Monocyte% 11.1 % (0-10); NRBC Flagged by Analyzer 0 % (0-5); Neutrophil # 2.85 X10^3/uL (2.7-7.7); Neutrophil % 64.3 % (47-70); Platelet Count 168 K/mm3 (150-450); RBC Distribution Width CV 13.1 % (11.6-14.6); Red Blood Count 4.82 M/mm3 (4.6-6.2); White Blood Count 4.4 K/mm3 (4.4-11.0)
[2019-06-24 11:11] LABS: ALB/GLOB Ratio 0.9 RATIO (0.9-2.4); AST(SGOT) 27 U/L (15-37); Alanine Aminotransfer ALT/SGPT 40 U/L (16-61); Albumin, Serum 3.8 g/dL (3.2-5.0); Alkaline Phosphatase 138 U/L (45-117); Anion Gap 4 (5-15); BUN 11 mg/dL (7-18); BUN/Creat Ratio 13.3 RATIO (10-20); Chloride 103 mmol/L (98-107); Creatinine, Serum 0.83 mg/dL (0.70-1.30); EST Glomerular Filtration Rate 103 mL/min (>60); Est Glom Filt Rate - Afr Amer 124 mL/min (>60); Globulin 4.1 g/dL (2.2-4.2); Glucose 96 mg/dL (74-106); Potassium 4.2 mmol/L (3.5-5.1); Protein, Total 7.9 g/dL (6.4-8.2); Sodium Level 139 mmol/L (136-145)
[2019-06-24 11:30] LABS: Valproic Acid (Depakene) Level 36 ug/mL (50-100)
[2019-07-08 13:43] LABS: Absolute Lymphocyte Count 1.11 X10^3/uL (0.83-4.51); Absolute Neutrophil Count 3.9 X10^3/uL (2.0-7.7); Basophil# 0.05 X10^3/uL; Basophil% 0.9 % (0-1); Eosinophil# 0.08 X10^3/uL; Eosinophils% 1.4 % (0-5); Hematocrit 44.6 % (40-54); Hemoglobin 14.7 g/dL (13.0-16.5); Lymphocyte # 1.11 X10^3/ul (4.0); Lymphocyte % 19.5 % (19-41); Mean Corpuscular Hgb 29.8 pg (27.0-32.0); Mean Corpuscular Volume 90.3 fL (80-94); Mean Platelet Vol. 10.9 fl (6.2-12.0); Monocyte# 0.48 X10^3/uL; Monocyte% 8.5 % (0-10); NRBC Flagged by Analyzer 0 % (0-5); Neutrophil # 3.92 X10^3/uL (2.7-7.7); Platelet Count 175 K/mm3 (150-450); RBC Distribution Width CV 13.3 % (11.6-14.6); RBC Distribution Width SD 43.6 fl (35.1-43.9); Red Blood Count 4.94 M/mm3 (4.6-6.2); White Blood Count 5.7 K/mm3 (4.4-11.0)
[2019-07-24 16:00] LABS: Absolute Lymphocyte Count 1.28 X10^3/uL (0.83-4.51); Absolute Neutrophil Count 2.6 X10^3/uL (2.0-7.7); Basophil# 0.05 X10^3/uL; Basophil% 1.1 % (0-1); Eosinophil# 0.11 X10^3/uL; Eosinophils% 2.4 % (0-5); Hematocrit 46.2 % (40-54); Hemoglobin 15.3 g/dL (13.0-16.5); Lymphocyte # 1.28 X10^3/ul (4.0); Lymphocyte % 27.7 % (19-41); Mean Corp Hgb Conc 33.1 g/dL (32-36); Mean Corpuscular Hgb 29.9 pg (27.0-32.0); Mean Corpuscular Volume 90.4 fL (80-94); Mean Platelet Vol. 10.9 fl (6.2-12.0); Monocyte# 0.52 X10^3/uL; Monocyte% 11.3 % (0-10); NRBC Flagged by Analyzer 0 % (0-5); Neutrophil # 2.64 X10^3/uL (2.7-7.7); Neutrophil % 57.1 % (47-70); Platelet Count 173 K/mm3 (150-450); RBC Distribution Width CV 13.4 % (11.6-14.6); RBC Distribution Width SD 44.2 fl (35.1-43.9); Red Blood Count 5.11 M/mm3 (4.6-6.2); White Blood Count 4.6 K/mm3 (4.4-11.0)
[2019-07-24 16:35] LABS: AST(SGOT) 22 U/L (15-37); Alanine Aminotransfer ALT/SGPT 28 U/L (16-61); Alkaline Phosphatase 132 U/L (45-117); Anion Gap 6 (5-15); BUN 12 mg/dL (7-18); BUN/Creat Ratio 13.4 RATIO (10-20); Calcium,Total 9.1 mg/dL (8.5-10.1); Chloride 100 mmol/L (98-107); EST Glomerular Filtration Rate 94 mL/min (>60); Est Glom Filt Rate - Afr Amer 113 mL/min (>60); Globulin 4.1 g/dL (2.2-4.2); Glucose 63 mg/dL (74-106); Potassium 3.9 mmol/L (3.5-5.1); Protein, Total 8.1 g/dL (6.4-8.2); Sodium Level 141 mmol/L (136-145)
[2019-07-24 16:53] LABS: Valproic Acid (Depakene) Level 50 ug/mL (50-100)
== END 2019-07-24 18:00 | disposition home or self-care (01) ==
LOC: LAB 14:24
PROVIDERS: Family Provider Family Medicine; PCP Family Medicine; Referring Provider Psychiatry & Neurology Child & Adolescent Psychiatry; Visit Provider Psychiatry & Neurology Child & Adolescent Psychiatry
DX: F91.9 Conduct disorder, unspecified (principal); F71 Moderate intellectual disabilities; F84.0 Autistic disorder
CPT/HCPCS: 36415; 80053; 80164; 85025

== ENCOUNTER 2019-08-19 13:36 | Outpatient (RCR) | payer MEDICARE, MEDICAID, SELFPAY ==
[2019-08-05 12:21] LABS: Absolute Lymphocyte Count 1.01 X10^3/uL (0.83-4.51); Absolute Neutrophil Count 1.6 X10^3/uL (2.0-7.7); Basophil# 0.04 X10^3/uL; Basophil% 1.3 % (0-1); Eosinophils% 3.3 % (0-5); Hematocrit 43.5 % (40-54); Hemoglobin 14.4 g/dL (13.0-16.5); Lymphocyte # 1.01 X10^3/ul (4.0); Lymphocyte % 33.1 % (19-41); Mean Corp Hgb Conc 33.1 g/dL (32-36); Mean Corpuscular Hgb 29.5 pg (27.0-32.0); Mean Corpuscular Volume 89.1 fL (80-94); Mean Platelet Vol. 11.1 fl (6.2-12.0); Monocyte# 0.28 X10^3/uL; Monocyte% 9.2 % (0-10); NRBC Flagged by Analyzer 0 % (0-5); Neutrophil # 1.61 X10^3/uL (2.7-7.7); Neutrophil % 52.8 % (47-70); Platelet Count 161 K/mm3 (150-450); RBC Distribution Width CV 13.4 % (11.6-14.6); RBC Distribution Width SD 43.6 fl (35.1-43.9); Red Blood Count 4.88 M/mm3 (4.6-6.2); White Blood Count 3.1 K/mm3 (4.4-11.0)
[2019-08-19 15:56] LABS: Absolute Lymphocyte Count 1.13 X10^3/uL (0.83-4.51); Absolute Neutrophil Count 2.8 X10^3/uL (2.0-7.7); Basophil# 0.03 X10^3/uL; Basophil% 0.7 % (0-1); Eosinophils% 2.3 % (0-5); Hematocrit 44.4 % (40-54); Hemoglobin 14.8 g/dL (13.0-16.5); Lymphocyte # 1.13 X10^3/ul (4.0); Lymphocyte % 25.7 % (19-41); Mean Corp Hgb Conc 33.3 g/dL (32-36); Mean Corpuscular Hgb 29.9 pg (27.0-32.0); Mean Corpuscular Volume 89.7 fL (80-94); Mean Platelet Vol. 11.3 fl (6.2-12.0); Monocyte# 0.35 X10^3/uL; NRBC Flagged by Analyzer 0 % (0-5); Neutrophil # 2.77 X10^3/uL (2.7-7.7); Neutrophil % 63.1 % (47-70); Platelet Count 165 K/mm3 (150-450); RBC Distribution Width CV 13.3 % (11.6-14.6); RBC Distribution Width SD 43.3 fl (35.1-43.9); Red Blood Count 4.95 M/mm3 (4.6-6.2); White Blood Count 4.4 K/mm3 (4.4-11.0)
== END 2019-08-19 18:00 | disposition home or self-care (01) ==
LOC: LAB 13:36
PROVIDERS: Family Provider Family Medicine; PCP Family Medicine; Referring Provider Psychiatry & Neurology Child & Adolescent Psychiatry; Visit Provider Psychiatry & Neurology Child & Adolescent Psychiatry
DX: F91.9 Conduct disorder, unspecified (principal); F71 Moderate intellectual disabilities; F84.0 Autistic disorder
CPT/HCPCS: 36415; 85025

== ENCOUNTER → 2019-09-05 10:05 | Outpatient (CLI) | payer MEDICARE, MEDICAID, SELFPAY ==
--- NOTE | 2019-09-05 10:19 | MRI_ITS ---
HISTORY: gait disorder, hx seizures,tremors, patient with mild MRDD TECHNIQUE: Routine brain MR protocol was performed without gadolinium. COMPARISON: CT scan of the brain from October 04, 2016 FINDINGS: # of images incl. paperwork: 326 Brain volume is minimally atrophic. Prominence of the occipital horns of the lateral ventricles is similar to the previous CT. The right globe is abnormally hypointense on T1 and T2-weighted imaging and is smaller than the left. Comparison to the CT scan shows a small globe that is hyperdense with a prosthetic lens.. No acute stroke is present. Paranasal sinuses are clear. There are no masses, herniations, nor deviations. Orbits and globes are normal. The pituitary and sella turcica are not enlarged. Flow is present within major central intracranial arteries. MRI/Brain without Contrast IMPRESSION: No acute disease perceived. Chronic changes of the right globe. Chronic changes of mild ventriculomegaly, especially within the occipital horns is similar to the previous study of 2017. at 0611 Reported and signed by: Davy Lea MD Electronically Signed: Davy Lea MD at 6:10 EST Tel , Service support ,
== END ==
PROVIDERS: Family Provider Family Medicine; PCP Family Medicine; Referring Provider Psychiatry & Neurology Neurology; Visit Provider Psychiatry & Neurology Neurology
DX: R26.9 Unspecified abnormalities of gait and mobility (principal)
CPT/HCPCS: 70551

== ENCOUNTER 2019-09-18 13:08 | Outpatient (RCR) | payer MEDICARE, MEDICAID, SELFPAY ==
[2019-09-02 13:48] LABS: Absolute Neutrophil Count 2.1 X10^3/uL (2.0-7.7); Basophil# 0.03 X10^3/uL; Basophil% 0.8 % (0-1); Eosinophil# 0.12 X10^3/uL; Eosinophils% 3.1 % (0-5); Hematocrit 45.7 % (40-54); Hemoglobin 15.3 g/dL (13.0-16.5); Lymphocyte % 30.9 % (19-41); Mean Corp Hgb Conc 33.5 g/dL (32-36); Mean Corpuscular Hgb 29.7 pg (27.0-32.0); Mean Corpuscular Volume 88.7 fL (80-94); Mean Platelet Vol. 11.6 fl (6.2-12.0); Monocyte# 0.38 X10^3/uL; Monocyte% 9.8 % (0-10); NRBC Flagged by Analyzer 0 % (0-5); Neutrophil # 2.14 X10^3/uL (2.7-7.7); Neutrophil % 55.1 % (47-70); POSITIVE COUNT YES; Platelet Count 143 K/mm3 (150-450); RBC Distribution Width CV 13.2 % (11.6-14.6); RBC Distribution Width SD 42.9 fl (35.1-43.9); Red Blood Count 5.15 M/mm3 (4.6-6.2); White Blood Count 3.9 K/mm3 (4.4-11.0)
[2019-09-02 13:58] LABS: Differential Indicated SCAN CRITERIA MET
[2019-09-18 13:46] LABS: Absolute Lymphocyte Count 0.88 X10^3/uL (0.83-4.51); Absolute Neutrophil Count 3.7 X10^3/uL (2.0-7.7); Basophil# 0.04 X10^3/uL; Basophil% 0.8 % (0-1); Eosinophil# 0.07 X10^3/uL; Eosinophils% 1.4 % (0-5); Hematocrit 43.9 % (40-54); Hemoglobin 14.7 g/dL (13.0-16.5); Lymphocyte # 0.88 X10^3/ul (4.0); Lymphocyte % 17.3 % (19-41); Mean Corp Hgb Conc 33.5 g/dL (32-36); Mean Corpuscular Hgb 29.5 pg (27.0-32.0); Mean Corpuscular Volume 88.2 fL (80-94); Mean Platelet Vol. 10.9 fl (6.2-12.0); Monocyte# 0.38 X10^3/uL; Monocyte% 7.5 % (0-10); NRBC Flagged by Analyzer 0 % (0-5); Neutrophil # 3.69 X10^3/uL (2.7-7.7); Neutrophil % 72.6 % (47-70); Platelet Count 168 K/mm3 (150-450); RBC Distribution Width CV 13.2 % (11.6-14.6); RBC Distribution Width SD 42.5 fl (35.1-43.9); Red Blood Count 4.98 M/mm3 (4.6-6.2); White Blood Count 5.1 K/mm3 (4.4-11.0)
== END 2019-09-18 18:00 | disposition home or self-care (01) ==
LOC: LAB 13:08
PROVIDERS: Family Provider Family Medicine; PCP Family Medicine; Referring Provider Psychiatry & Neurology Child & Adolescent Psychiatry; Visit Provider Psychiatry & Neurology Child & Adolescent Psychiatry
DX: F63.9 Impulse disorder, unspecified (principal); Z51.81 Encounter for therapeutic drug level monitoring
CPT/HCPCS: 36415; 85025

== ENCOUNTER 2019-10-14 11:24 | Outpatient (RCR) | payer MEDICARE, MEDICAID, SELFPAY ==
[2019-09-29 08:26] LABS: Absolute Lymphocyte Count 0.95 X10^3/uL (0.83-4.51); Absolute Neutrophil Count 6.5 X10^3/uL (2.0-7.7); Basophil# 0.04 X10^3/uL; Basophil% 0.5 % (0-1); Eosinophils% 1.2 % (0-5); Hematocrit 43.6 % (40-54); Hemoglobin 14.5 g/dL (13.0-16.5); Lymphocyte # 0.95 X10^3/ul (4.0); Lymphocyte % 11.5 % (19-41); Mean Corp Hgb Conc 33.3 g/dL (32-36); Mean Corpuscular Hgb 29.7 pg (27.0-32.0); Mean Corpuscular Volume 89.2 fL (80-94); Mean Platelet Vol. 10.6 fl (6.2-12.0); Monocyte# 0.68 X10^3/uL; Monocyte% 8.2 % (0-10); NRBC Flagged by Analyzer 0 % (0-5); Neutrophil # 6.47 X10^3/uL (2.7-7.7); Neutrophil % 78.1 % (47-70); Platelet Count 159 K/mm3 (150-450); RBC Distribution Width CV 13.2 % (11.6-14.6); RBC Distribution Width SD 42.9 fl (35.1-43.9); Red Blood Count 4.89 M/mm3 (4.6-6.2); White Blood Count 8.3 K/mm3 (4.4-11.0)
[2019-09-29 08:47] LABS: AST(SGOT) 19 U/L (15-37); Alanine Aminotransfer ALT/SGPT 27 U/L (16-61); Albumin, Serum 3.7 g/dL (3.2-5.0); Alkaline Phosphatase 171 U/L (45-117); Anion Gap 3 (5-15); BUN 14 mg/dL (7-18); BUN/Creat Ratio 16.1 RATIO (10-20); Calcium,Total 8.7 mg/dL (8.5-10.1); Chloride 106 mmol/L (98-107); Creatinine, Serum 0.87 mg/dL (0.70-1.30); EST Glomerular Filtration Rate 97 mL/min (>60); Est Glom Filt Rate - Afr Amer 118 mL/min (>60); Globulin 3.8 g/dL (2.2-4.2); Glucose 93 mg/dL (74-106); Potassium 4.1 mmol/L (3.5-5.1); Protein, Total 7.5 g/dL (6.4-8.2); Sodium Level 140 mmol/L (136-145)
[2019-10-14 12:45] LABS: Absolute Lymphocyte Count 1.05 X10^3/uL (0.83-4.51); Absolute Neutrophil Count 2.2 X10^3/uL (2.0-7.7); Basophil# 0.03 X10^3/uL; Basophil% 0.8 % (0-1); Eosinophil# 0.07 X10^3/uL; Eosinophils% 1.9 % (0-5); Hematocrit 44.1 % (40-54); Hemoglobin 14.4 g/dL (13.0-16.5); Lymphocyte # 1.05 X10^3/ul (4.0); Lymphocyte % 28.1 % (19-41); Mean Corp Hgb Conc 32.7 g/dL (32-36); Mean Corpuscular Hgb 29.4 pg (27.0-32.0); Mean Platelet Vol. 11.3 fl (6.2-12.0); Monocyte# 0.33 X10^3/uL; Monocyte% 8.8 % (0-10); NRBC Flagged by Analyzer 0 % (0-5); Neutrophil # 2.24 X10^3/uL (2.7-7.7); Neutrophil % 59.9 % (47-70); Platelet Count 141 K/mm3 (150-450); RBC Distribution Width CV 13.2 % (11.6-14.6); RBC Distribution Width SD 43.1 fl (35.1-43.9); White Blood Count 3.7 K/mm3 (4.4-11.0)
== END 2019-10-14 18:00 | disposition home or self-care (01) ==
LOC: LAB 11:24
PROVIDERS: Family Provider Family Medicine; PCP Family Medicine; Referring Provider Psychiatry & Neurology Child & Adolescent Psychiatry; Visit Provider Psychiatry & Neurology Child & Adolescent Psychiatry
DX: F63.9 Impulse disorder, unspecified (principal); Z51.81 Encounter for therapeutic drug level monitoring
CPT/HCPCS: 36415; 80053; 85025

== ENCOUNTER → 2019-11-07 07:33 | Outpatient (CLI) | payer MEDICARE, MEDICAID, SELFPAY | PROVIDERS: PCP Family Medicine; Referring Provider Psychiatry & Neurology Child & Adolescent Psychiatry; Visit Provider Psychiatry & Neurology Child & Adolescent Psychiatry | DX: G40.909 Epilepsy, unspecified, not intractable, without status epilepticus (principal) | CPT/HCPCS: 95819 ==

== ENCOUNTER 2019-11-11 11:47 | Outpatient (RCR) | payer MEDICARE, MEDICAID, SELFPAY ==
[2019-10-28 16:03] LABS: Absolute Lymphocyte Count 1.08 X10^3/uL (0.83-4.51); Absolute Neutrophil Count 3.3 X10^3/uL (2.0-7.7); Basophil# 0.04 X10^3/uL; Basophil% 0.8 % (0-1); Eosinophil# 0.11 X10^3/uL; Eosinophils% 2.3 % (0-5); Hematocrit 44.4 % (40-54); Hemoglobin 14.7 g/dL (13.0-16.5); Lymphocyte # 1.08 X10^3/ul (4.0); Lymphocyte % 22.2 % (19-41); Mean Corp Hgb Conc 33.1 g/dL (32-36); Mean Corpuscular Hgb 29.2 pg (27.0-32.0); Mean Corpuscular Volume 88.3 fL (80-94); Mean Platelet Vol. 11.5 fl (6.2-12.0); Monocyte# 0.34 X10^3/uL; NRBC Flagged by Analyzer 0 % (0-5); Neutrophil # 3.28 X10^3/uL (2.7-7.7); Neutrophil % 67.5 % (47-70); Platelet Count 137 K/mm3 (150-450); RBC Distribution Width CV 13.4 % (11.6-14.6); RBC Distribution Width SD 43.2 fl (35.1-43.9); Red Blood Count 5.03 M/mm3 (4.6-6.2); White Blood Count 4.9 K/mm3 (4.4-11.0)
[2019-10-28 16:42] LABS: ALB/GLOB Ratio 0.9 RATIO (0.9-2.4); AST(SGOT) 17 U/L (15-37); Alanine Aminotransfer ALT/SGPT 21 U/L (16-61); Albumin, Serum 3.9 g/dL (3.2-5.0); Alkaline Phosphatase 124 U/L (45-117); Anion Gap 5 (5-15); BUN 12 mg/dL (7-18); BUN/Creat Ratio 13.8 RATIO (10-20); Calcium,Total 9.2 mg/dL (8.5-10.1); Chloride 102 mmol/L (98-107); Creatinine, Serum 0.87 mg/dL (0.70-1.30); EST Glomerular Filtration Rate 97 mL/min (>60); Est Glom Filt Rate - Afr Amer 118 mL/min (>60); Globulin 4.2 g/dL (2.2-4.2); Glucose 94 mg/dL (74-106); Potassium 3.7 mmol/L (3.5-5.1); Protein, Total 8.1 g/dL (6.4-8.2); Sodium Level 139 mmol/L (136-145)
[2019-10-28 16:43] LABS: Valproic Acid (Depakene) Level 41 ug/mL (50-100)
[2019-11-11 12:15] LABS: Absolute Lymphocyte Count 1.02 X10^3/uL (0.83-4.51); Absolute Neutrophil Count 4.7 X10^3/uL (2.0-7.7); Basophil# 0.05 X10^3/uL; Basophil% 0.8 % (0-1); Eosinophil# 0.08 X10^3/uL; Eosinophils% 1.3 % (0-5); Hematocrit 44.3 % (40-54); Hemoglobin 14.9 g/dL (13.0-16.5); Lymphocyte # 1.02 X10^3/ul (4.0); Lymphocyte % 16.2 % (19-41); Mean Corp Hgb Conc 33.6 g/dL (32-36); Mean Corpuscular Hgb 29.6 pg (27.0-32.0); Mean Corpuscular Volume 87.9 fL (80-94); Mean Platelet Vol. 10.7 fl (6.2-12.0); Monocyte# 0.48 X10^3/uL; Monocyte% 7.6 % (0-10); NRBC Flagged by Analyzer 0 % (0-5); Neutrophil # 4.66 X10^3/uL (2.7-7.7); Neutrophil % 73.8 % (47-70); Platelet Count 131 K/mm3 (150-450); RBC Distribution Width CV 13.3 % (11.6-14.6); RBC Distribution Width SD 42.5 fl (35.1-43.9); Red Blood Count 5.04 M/mm3 (4.6-6.2); White Blood Count 6.3 K/mm3 (4.4-11.0)
== END 2019-11-11 18:00 | disposition home or self-care (01) ==
LOC: LAB 11:47
PROVIDERS: Family Provider Family Medicine; PCP Family Medicine; Referring Provider Psychiatry & Neurology Child & Adolescent Psychiatry; Visit Provider Psychiatry & Neurology Child & Adolescent Psychiatry
DX: Z79.899 Other long term (current) drug therapy (principal)
CPT/HCPCS: 36415; 80053; 80164; 85025

== ENCOUNTER 2019-12-10 13:54 | Outpatient (RCR) | payer MEDICARE, MEDICAID, SELFPAY ==
[2019-11-26 13:20] LABS: Absolute Lymphocyte Count 1.12 X10^3/uL (0.83-4.51); Absolute Neutrophil Count 2.4 X10^3/uL (2.0-7.7); Basophil# 0.05 X10^3/uL; Basophil% 1.2 % (0-1); Eosinophil# 0.08 X10^3/uL; Hematocrit 43.9 % (40-54); Hemoglobin 14.5 g/dL (13.0-16.5); Lymphocyte # 1.12 X10^3/ul (4.0); Lymphocyte % 27.9 % (19-41); Mean Corpuscular Hgb 29.3 pg (27.0-32.0); Mean Corpuscular Volume 88.7 fL (80-94); Mean Platelet Vol. 10.7 fl (6.2-12.0); Monocyte# 0.39 X10^3/uL; Monocyte% 9.7 % (0-10); NRBC Flagged by Analyzer 0 % (0-5); Neutrophil # 2.36 X10^3/uL (2.7-7.7); Neutrophil % 58.7 % (47-70); Platelet Count 156 K/mm3 (150-450); RBC Distribution Width CV 13.2 % (11.6-14.6); RBC Distribution Width SD 42.3 fl (35.1-43.9); Red Blood Count 4.95 M/mm3 (4.6-6.2)
[2019-12-10 14:35] LABS: Absolute Lymphocyte Count 1.09 X10^3/uL (0.83-4.51); Basophil# 0.04 X10^3/uL; Basophil% 1.1 % (0-1); Eosinophil# 0.08 X10^3/uL; Eosinophils% 2.3 % (0-5); Hematocrit 43.1 % (40-54); Hemoglobin 14.4 g/dL (13.0-16.5); Lymphocyte # 1.09 X10^3/ul (4.0); Mean Corp Hgb Conc 33.4 g/dL (32-36); Mean Corpuscular Hgb 29.9 pg (27.0-32.0); Mean Corpuscular Volume 89.6 fL (80-94); Mean Platelet Vol. 10.9 fl (6.2-12.0); Monocyte# 0.34 X10^3/uL; Monocyte% 9.7 % (0-10); NRBC Flagged by Analyzer 0 % (0-5); Neutrophil # 1.96 X10^3/uL (2.7-7.7); Neutrophil % 55.6 % (47-70); Platelet Count 144 K/mm3 (150-450); RBC Distribution Width CV 13.3 % (11.6-14.6); RBC Distribution Width SD 43.8 fl (35.1-43.9); Red Blood Count 4.81 M/mm3 (4.6-6.2); White Blood Count 3.5 K/mm3 (4.4-11.0)
== END 2019-12-10 18:00 | disposition home or self-care (01) ==
LOC: LAB 13:54
PROVIDERS: Family Provider Family Medicine; PCP Family Medicine; Referring Provider Psychiatry & Neurology Child & Adolescent Psychiatry; Visit Provider Psychiatry & Neurology Child & Adolescent Psychiatry
DX: Z79.899 Other long term (current) drug therapy (principal)
CPT/HCPCS: 36415; 85025

== ENCOUNTER 2020-01-12 08:56 | Outpatient (RCR) | payer MEDICARE, MEDICAID, SELFPAY ==
[2019-12-25 13:49] LABS: Absolute Lymphocyte Count 0.82 X10^3/uL (0.83-4.51); Absolute Neutrophil Count 6.4 X10^3/uL (2.0-7.7); Basophil# 0.04 X10^3/uL; Basophil% 0.5 % (0-1); Eosinophil# 0.06 X10^3/uL; Eosinophils% 0.8 % (0-5); Hematocrit 45.7 % (40-54); Hemoglobin 15.3 g/dL (13.0-16.5); Lymphocyte # 0.82 X10^3/ul (4.0); Lymphocyte % 10.5 % (19-41); Mean Corp Hgb Conc 33.5 g/dL (32-36); Mean Corpuscular Hgb 29.7 pg (27.0-32.0); Mean Corpuscular Volume 88.6 fL (80-94); Mean Platelet Vol. 10.4 fl (6.2-12.0); Monocyte# 0.46 X10^3/uL; Monocyte% 5.9 % (0-10); NRBC Flagged by Analyzer 0 % (0-5); Neutrophil # 6.41 X10^3/uL (2.7-7.7); Neutrophil % 81.7 % (47-70); Platelet Count 198 K/mm3 (150-450); RBC Distribution Width CV 13.2 % (11.6-14.6); RBC Distribution Width SD 42.5 fl (35.1-43.9); Red Blood Count 5.16 M/mm3 (4.6-6.2); White Blood Count 7.8 K/mm3 (4.4-11.0)
[2019-12-25 14:04] LABS: AST(SGOT) 18 U/L (15-37); Alanine Aminotransfer ALT/SGPT 23 U/L (16-61); Albumin, Serum 3.9 g/dL (3.2-5.0); Alkaline Phosphatase 179 U/L (45-117); Anion Gap 9 (5-15); BUN 10 mg/dL (7-18); BUN/Creat Ratio 11.6 RATIO (10-20); Calcium,Total 9.4 mg/dL (8.5-10.1); Chloride 100 mmol/L (98-107); Creatinine, Serum 0.86 mg/dL (0.70-1.30); EST Glomerular Filtration Rate 98 mL/min (>60); Est Glom Filt Rate - Afr Amer 119 mL/min (>60); Globulin 4.1 g/dL (2.2-4.2); Glucose 170 mg/dL (74-106); Potassium 3.9 mmol/L (3.5-5.1); Sodium Level 140 mmol/L (136-145)
[2019-12-25 14:13] LABS: Valproic Acid (Depakene) Level 56 ug/mL (50-100)
[2020-01-12 09:28] LABS: Absolute Lymphocyte Count 0.93 X10^3/uL (0.83-4.51); Absolute Neutrophil Count 2.2 X10^3/uL (2.0-7.7); Basophil# 0.03 X10^3/uL; Basophil% 0.8 % (0-1); Eosinophil# 0.07 X10^3/uL; Hematocrit 43.4 % (40-54); Hemoglobin 14.8 g/dL (13.0-16.5); Lymphocyte # 0.93 X10^3/ul (4.0); Lymphocyte % 26.2 % (19-41); Mean Corp Hgb Conc 34.1 g/dL (32-36); Mean Corpuscular Hgb 30.5 pg (27.0-32.0); Mean Corpuscular Volume 89.3 fL (80-94); Mean Platelet Vol. 10.7 fl (6.2-12.0); Monocyte# 0.34 X10^3/uL; Monocyte% 9.6 % (0-10); NRBC Flagged by Analyzer 0 % (0-5); Neutrophil # 2.17 X10^3/uL (2.7-7.7); Neutrophil % 61.1 % (47-70); Platelet Count 145 K/mm3 (150-450); RBC Distribution Width CV 13.8 % (11.6-14.6); RBC Distribution Width SD 44.3 fl (35.1-43.9); Red Blood Count 4.86 M/mm3 (4.6-6.2); White Blood Count 3.6 K/mm3 (4.4-11.0)
== END 2020-01-22 18:00 | disposition home or self-care (01) ==
LOC: LAB 08:56
PROVIDERS: Family Provider Family Medicine; PCP Family Medicine; Referring Provider Psychiatry & Neurology Child & Adolescent Psychiatry; Visit Provider Psychiatry & Neurology Child & Adolescent Psychiatry
DX: Z79.899 Other long term (current) drug therapy (principal)
CPT/HCPCS: 36415; 80053; 80164; 85025

== ENCOUNTER 2020-02-18 09:22 | Outpatient (RCR) | payer MEDICARE, MEDICAID, SELFPAY ==
[2020-02-03 07:59] LABS: Absolute Lymphocyte Count 1.37 X10^3/uL (0.83-4.51); Absolute Neutrophil Count 1.9 X10^3/uL (2.0-7.7); Basophil# 0.04 X10^3/uL; Basophil% 1.1 % (0-1); Eosinophils% 2.7 % (0-5); Hematocrit 44.7 % (40-54); Lymphocyte # 1.37 X10^3/ul (4.0); Lymphocyte % 36.5 % (19-41); Mean Corp Hgb Conc 33.6 g/dL (32-36); Mean Corpuscular Hgb 29.9 pg (27.0-32.0); Mean Corpuscular Volume 89.2 fL (80-94); Mean Platelet Vol. 10.8 fl (6.2-12.0); Monocyte# 0.38 X10^3/uL; Monocyte% 10.1 % (0-10); NRBC Flagged by Analyzer 0 % (0-5); Neutrophil # 1.85 X10^3/uL (2.7-7.7); Neutrophil % 49.3 % (47-70); Platelet Count 141 K/mm3 (150-450); RBC Distribution Width CV 13.6 % (11.6-14.6); RBC Distribution Width SD 43.5 fl (35.1-43.9); Red Blood Count 5.01 M/mm3 (4.6-6.2); White Blood Count 3.8 K/mm3 (4.4-11.0)
[2020-02-18 10:06] LABS: Absolute Lymphocyte Count 1.33 X10^3/uL (0.83-4.51); Basophil# 0.04 X10^3/uL; Eosinophil# 0.13 X10^3/uL; Eosinophils% 3.2 % (0-5); Hematocrit 45.7 % (40-54); Hemoglobin 15.4 g/dL (13.0-16.5); Lymphocyte # 1.33 X10^3/ul (4.0); Lymphocyte % 32.9 % (19-41); Mean Corp Hgb Conc 33.7 g/dL (32-36); Mean Corpuscular Hgb 29.7 pg (27.0-32.0); Mean Corpuscular Volume 88.1 fL (80-94); Monocyte# 0.46 X10^3/uL; Monocyte% 11.4 % (0-10); NRBC Flagged by Analyzer 0 % (0-5); Neutrophil # 2.04 X10^3/uL (2.7-7.7); Neutrophil % 50.5 % (47-70); Platelet Count 222 K/mm3 (150-450); RBC Distribution Width SD 41.5 fl (35.1-43.9); Red Blood Count 5.19 M/mm3 (4.6-6.2)
== END 2020-02-18 18:00 | disposition home or self-care (01) ==
LOC: LAB 09:22
PROVIDERS: Family Provider Family Medicine; PCP Family Medicine; Referring Provider Psychiatry & Neurology Child & Adolescent Psychiatry; Visit Provider Psychiatry & Neurology Child & Adolescent Psychiatry
DX: Z79.899 Other long term (current) drug therapy (principal)
CPT/HCPCS: 36415; 85025

== ENCOUNTER 2020-03-19 10:03 | Outpatient (RCR) | payer MEDICARE, MEDICAID, SELFPAY ==
[2020-03-19 10:49] LABS: Absolute Lymphocyte Count 1.03 X10^3/uL (0.83-4.51); Absolute Neutrophil Count 3.7 X10^3/uL (2.0-7.7); Basophil# 0.04 X10^3/uL; Basophil% 0.7 % (0-1); Eosinophils% 1.8 % (0-5); Hematocrit 47.6 % (40-54); Hemoglobin 15.6 g/dL (13.0-16.5); Lymphocyte # 1.03 X10^3/ul (4.0); Lymphocyte % 18.8 % (19-41); Mean Corp Hgb Conc 32.8 g/dL (32-36); Mean Corpuscular Hgb 29.6 pg (27.0-32.0); Mean Corpuscular Volume 90.3 fL (80-94); Monocyte# 0.58 X10^3/uL; Monocyte% 10.6 % (0-10); NRBC Flagged by Analyzer 0 % (0-5); Neutrophil # 3.69 X10^3/uL (2.7-7.7); Neutrophil % 67.6 % (47-70); Platelet Count 177 K/mm3 (150-450); RBC Distribution Width CV 13.2 % (11.6-14.6); RBC Distribution Width SD 43.8 fl (35.1-43.9); Red Blood Count 5.27 M/mm3 (4.6-6.2); White Blood Count 5.5 K/mm3 (4.4-11.0)
[2020-03-19 11:22] LABS: Valproic Acid (Depakene) Level 36 ug/mL (50-100)
[2020-03-19 11:25] LABS: ALB/GLOB Ratio 0.9 RATIO (0.9-2.4); AST(SGOT) 19 U/L (15-37); Alanine Aminotransfer ALT/SGPT 34 U/L (16-61); Albumin, Serum 3.7 g/dL (3.2-5.0); Alkaline Phosphatase 112 U/L (45-117); Anion Gap 4 (5-15); BUN 11 mg/dL (7-18); BUN/Creat Ratio 13.9 RATIO (10-20); Calcium,Total 8.9 mg/dL (8.5-10.1); Chloride 102 mmol/L (98-107); Creatinine, Serum 0.79 mg/dL (0.70-1.30); EST Glomerular Filtration Rate 108 mL/min (>60); Est Glom Filt Rate - Afr Amer 131 mL/min (>60); Glucose 82 mg/dL (74-106); Potassium 4.1 mmol/L (3.5-5.1); Protein, Total 7.7 g/dL (6.4-8.2); Sodium Level 137 mmol/L (136-145)
== END 2020-03-19 18:00 | disposition home or self-care (01) ==
LOC: LAB 10:03
PROVIDERS: Family Provider Family Medicine; PCP Family Medicine; Referring Provider Psychiatry & Neurology Child & Adolescent Psychiatry; Visit Provider Psychiatry & Neurology Child & Adolescent Psychiatry
DX: Z79.899 Other long term (current) drug therapy (principal)
CPT/HCPCS: 36415; 80053; 80164; 85025

== ENCOUNTER 2020-04-14 11:49 | Outpatient (RCR) | payer MEDICARE, MEDICAID, SELFPAY ==
[2020-03-29 09:42] LABS: Absolute Lymphocyte Count 1.01 X10^3/uL (0.83-4.51); Absolute Neutrophil Count 3.7 X10^3/uL (2.0-7.7); Basophil# 0.04 X10^3/uL; Basophil% 0.8 % (0-1); Eosinophil# 0.13 X10^3/uL; Eosinophils% 2.4 % (0-5); Hematocrit 46.3 % (40-54); Hemoglobin 15.2 g/dL (13.0-16.5); Lymphocyte # 1.01 X10^3/ul (4.0); Mean Corp Hgb Conc 32.8 g/dL (32-36); Mean Corpuscular Hgb 29.5 pg (27.0-32.0); Mean Corpuscular Volume 89.9 fL (80-94); Mean Platelet Vol. 10.2 fl (6.2-12.0); Monocyte# 0.36 X10^3/uL; Monocyte% 6.8 % (0-10); NRBC Flagged by Analyzer 0 % (0-5); Neutrophil # 3.74 X10^3/uL (2.7-7.7); Neutrophil % 70.4 % (47-70); Platelet Count 165 K/mm3 (150-450); RBC Distribution Width CV 13.1 % (11.6-14.6); RBC Distribution Width SD 42.8 fl (35.1-43.9); Red Blood Count 5.15 M/mm3 (4.6-6.2); White Blood Count 5.3 K/mm3 (4.4-11.0)
[2020-03-29 10:11] LABS: ALB/GLOB Ratio 0.9 RATIO (0.9-2.4); AST(SGOT) 22 U/L (15-37); Alanine Aminotransfer ALT/SGPT 38 U/L (16-61); Albumin, Serum 3.6 g/dL (3.2-5.0); Alkaline Phosphatase 120 U/L (45-117); Anion Gap 5 (5-15); BUN 17 mg/dL (7-18); BUN/Creat Ratio 21.6 RATIO (10-20); Calcium,Total 8.6 mg/dL (8.5-10.1); Chloride 103 mmol/L (98-107); Creatinine, Serum 0.79 mg/dL (0.70-1.30); EST Glomerular Filtration Rate 109 mL/min (>60); Est Glom Filt Rate - Afr Amer 132 mL/min (>60); Globulin 3.9 g/dL (2.2-4.2); Glucose 129 mg/dL (74-106); Protein, Total 7.5 g/dL (6.4-8.2); Sodium Level 139 mmol/L (136-145)
[2020-03-29 10:12] LABS: Valproic Acid (Depakene) Level 41 ug/mL (50-100)
[2020-04-14 13:30] LABS: Absolute Lymphocyte Count 1.21 X10^3/uL (0.83-4.51); Absolute Neutrophil Count 3.1 X10^3/uL (2.0-7.7); Basophil# 0.05 X10^3/uL; Eosinophil# 0.13 X10^3/uL; Eosinophils% 2.6 % (0-5); Hemoglobin 15.1 g/dL (13.0-16.5); Lymphocyte # 1.21 X10^3/ul (4.0); Lymphocyte % 23.8 % (19-41); Mean Corp Hgb Conc 33.6 g/dL (32-36); Mean Corpuscular Hgb 29.8 pg (27.0-32.0); Mean Corpuscular Volume 88.9 fL (80-94); Mean Platelet Vol. 11.1 fl (6.2-12.0); Monocyte% 11.8 % (0-10); NRBC Flagged by Analyzer 0 % (0-5); Neutrophil # 3.06 X10^3/uL (2.7-7.7); Platelet Count 172 K/mm3 (150-450); RBC Distribution Width CV 13.4 % (11.6-14.6); RBC Distribution Width SD 43.2 fl (35.1-43.9); Red Blood Count 5.06 M/mm3 (4.6-6.2); White Blood Count 5.1 K/mm3 (4.4-11.0)
== END 2020-04-14 18:00 | disposition home or self-care (01) ==
LOC: LAB 11:49
PROVIDERS: Family Provider Family Medicine; PCP Family Medicine; Referring Provider Psychiatry & Neurology Child & Adolescent Psychiatry; Visit Provider Psychiatry & Neurology Child & Adolescent Psychiatry
DX: Z79.899 Other long term (current) drug therapy (principal)
CPT/HCPCS: 36415; 80053; 80164; 85025

== ENCOUNTER 2020-05-12 12:30 | Outpatient (RCR) | payer MEDICARE, MEDICAID, SELFPAY ==
[2020-04-29 10:09] LABS: Absolute Lymphocyte Count 0.92 X10^3/uL (0.83-4.51); Absolute Neutrophil Count 4.2 X10^3/uL (2.0-7.7); Basophil# 0.03 X10^3/uL; Basophil% 0.5 % (0-1); Eosinophil# 0.12 X10^3/uL; Eosinophils% 2.1 % (0-5); Hematocrit 46.2 % (40-54); Hemoglobin 15.2 g/dL (13.0-16.5); Lymphocyte # 0.92 X10^3/ul (4.0); Lymphocyte % 15.8 % (19-41); Mean Corp Hgb Conc 32.9 g/dL (32-36); Mean Corpuscular Hgb 29.3 pg (27.0-32.0); Mean Corpuscular Volume 89.2 fL (80-94); Mean Platelet Vol. 10.5 fl (6.2-12.0); Monocyte# 0.53 X10^3/uL; Monocyte% 9.1 % (0-10); NRBC Flagged by Analyzer 0 % (0-5); Neutrophil # 4.21 X10^3/uL (2.7-7.7); Neutrophil % 72.2 % (47-70); Platelet Count 191 K/mm3 (150-450); RBC Distribution Width CV 13.6 % (11.6-14.6); RBC Distribution Width SD 43.9 fl (35.1-43.9); Red Blood Count 5.18 M/mm3 (4.6-6.2); White Blood Count 5.8 K/mm3 (4.4-11.0)
[2020-05-12 12:57] LABS: Absolute Neutrophil Count 7.4 X10^3/uL (2.0-7.7); Basophil# 0.05 X10^3/uL; Basophil% 0.5 % (0-1); Eosinophil# 0.08 X10^3/uL; Eosinophils% 0.8 % (0-5); Hematocrit 45.4 % (40-54); Hemoglobin 14.9 g/dL (13.0-16.5); Lymphocyte % 12.6 % (19-41); Mean Corp Hgb Conc 32.8 g/dL (32-36); Mean Corpuscular Hgb 29.1 pg (27.0-32.0); Mean Corpuscular Volume 88.7 fL (80-94); Monocyte# 0.74 X10^3/uL; Monocyte% 7.8 % (0-10); NRBC Flagged by Analyzer 0 % (0-5); Neutrophil # 7.38 X10^3/uL (2.7-7.7); Neutrophil % 77.8 % (47-70); Platelet Count 199 K/mm3 (150-450); RBC Distribution Width CV 13.4 % (11.6-14.6); RBC Distribution Width SD 43.8 fl (35.1-43.9); Red Blood Count 5.12 M/mm3 (4.6-6.2); White Blood Count 9.5 K/mm3 (4.4-11.0)
== END 2020-05-24 18:00 | disposition home or self-care (01) ==
LOC: LAB 12:30
PROVIDERS: Family Provider Family Medicine; PCP Family Medicine; Referring Provider Psychiatry & Neurology Child & Adolescent Psychiatry; Visit Provider Psychiatry & Neurology Child & Adolescent Psychiatry
DX: Z79.899 Other long term (current) drug therapy (principal)
CPT/HCPCS: 36415; 85025

== ENCOUNTER 2020-06-23 14:22 | Outpatient (RCR) | payer MEDICARE, MEDICAID, SELFPAY ==
[2020-05-27 09:40] LABS: Absolute Lymphocyte Count 0.88 X10^3/uL (0.83-4.51); Absolute Neutrophil Count 3.2 X10^3/uL (2.0-7.7); Basophil# 0.05 X10^3/uL; Basophil% 1.1 % (0-1); Eosinophil# 0.07 X10^3/uL; Eosinophils% 1.5 % (0-5); Hematocrit 44.9 % (40-54); Hemoglobin 14.6 g/dL (13.0-16.5); Lymphocyte # 0.88 X10^3/ul (4.0); Lymphocyte % 18.9 % (19-41); Mean Corp Hgb Conc 32.5 g/dL (32-36); Mean Corpuscular Hgb 28.8 pg (27.0-32.0); Mean Corpuscular Volume 88.6 fL (80-94); Mean Platelet Vol. 10.6 fl (6.2-12.0); Monocyte# 0.41 X10^3/uL; Monocyte% 8.8 % (0-10); NRBC Flagged by Analyzer 0 % (0-5); Neutrophil # 3.22 X10^3/uL (2.7-7.7); Neutrophil % 69.3 % (47-70); Platelet Count 162 K/mm3 (150-450); RBC Distribution Width SD 45.1 fl (35.1-43.9); Red Blood Count 5.07 M/mm3 (4.6-6.2); White Blood Count 4.7 K/mm3 (4.4-11.0)
[2020-06-11 07:35] LABS: Absolute Lymphocyte Count 1.26 X10^3/uL (0.83-4.51); Absolute Neutrophil Count 2.5 X10^3/uL (2.0-7.7); Basophil# 0.05 X10^3/uL; Basophil% 1.1 % (0-1); Eosinophil# 0.16 X10^3/uL; Eosinophils% 3.5 % (0-5); Hematocrit 45.3 % (40-54); Hemoglobin 15.1 g/dL (13.0-16.5); Lymphocyte # 1.26 X10^3/ul (4.0); Lymphocyte % 27.8 % (19-41); Mean Corp Hgb Conc 33.3 g/dL (32-36); Mean Corpuscular Hgb 29.2 pg (27.0-32.0); Mean Corpuscular Volume 87.6 fL (80-94); Mean Platelet Vol. 10.4 fl (6.2-12.0); Monocyte# 0.52 X10^3/uL; Monocyte% 11.5 % (0-10); NRBC Flagged by Analyzer 0 % (0-5); Neutrophil % 55.2 % (47-70); Platelet Count 180 K/mm3 (150-450); RBC Distribution Width CV 13.3 % (11.6-14.6); RBC Distribution Width SD 42.5 fl (35.1-43.9); Red Blood Count 5.17 M/mm3 (4.6-6.2); White Blood Count 4.5 K/mm3 (4.4-11.0)
[2020-06-11 08:13] LABS: Valproic Acid (Depakene) Level 44 ug/mL (50-100)
[2020-06-11 08:27] LABS: ALB/GLOB Ratio 0.9 RATIO (0.9-2.4); AST(SGOT) 17 U/L (15-37); Alanine Aminotransfer ALT/SGPT 24 U/L (16-61); Albumin, Serum 3.7 g/dL (3.2-5.0); Alkaline Phosphatase 124 U/L (45-117); Anion Gap 6 (5-15); BUN 9 mg/dL (7-18); BUN/Creat Ratio 10.8 RATIO (10-20); Calcium,Total 9.3 mg/dL (8.5-10.1); Chloride 100 mmol/L (98-107); Creatinine, Serum 0.84 mg/dL (0.70-1.30); EST Glomerular Filtration Rate 102 mL/min (>60); Est Glom Filt Rate - Afr Amer 123 mL/min (>60); Globulin 3.9 g/dL (2.2-4.2); Glucose 92 mg/dL (74-106); Potassium 3.7 mmol/L (3.5-5.1); Protein, Total 7.6 g/dL (6.4-8.2); Sodium Level 138 mmol/L (136-145)
[2020-06-23 15:00] LABS: Absolute Lymphocyte Count 0.97 X10^3/uL (0.83-4.51); Absolute Neutrophil Count 3.3 X10^3/uL (2.0-7.7); Basophil# 0.04 X10^3/uL; Basophil% 0.8 % (0-1); Eosinophil# 0.07 X10^3/uL; Eosinophils% 1.4 % (0-5); Hematocrit 43.5 % (40-54); Hemoglobin 14.2 g/dL (13.0-16.5); Lymphocyte # 0.97 X10^3/ul (4.0); Lymphocyte % 19.7 % (19-41); Mean Corp Hgb Conc 32.6 g/dL (32-36); Mean Corpuscular Hgb 29.1 pg (27.0-32.0); Mean Corpuscular Volume 89.1 fL (80-94); Mean Platelet Vol. 10.4 fl (6.2-12.0); Monocyte# 0.53 X10^3/uL; Monocyte% 10.8 % (0-10); NRBC Flagged by Analyzer 0 % (0-5); Neutrophil # 3.27 X10^3/uL (2.7-7.7); Neutrophil % 66.5 % (47-70); Platelet Count 200 K/mm3 (150-450); RBC Distribution Width CV 13.7 % (11.6-14.6); RBC Distribution Width SD 44.5 fl (35.1-43.9); Red Blood Count 4.88 M/mm3 (4.6-6.2); White Blood Count 4.9 K/mm3 (4.4-11.0)
== END 2020-06-23 18:00 | disposition home or self-care (01) ==
LOC: LAB 14:22
PROVIDERS: Family Provider Family Medicine; PCP Family Medicine; Referring Provider Psychiatry & Neurology Child & Adolescent Psychiatry; Visit Provider Psychiatry & Neurology Child & Adolescent Psychiatry
DX: Z79.899 Other long term (current) drug therapy (principal)
CPT/HCPCS: 36415; 80053; 80164; 85025

== ENCOUNTER 2020-07-20 14:54 | Outpatient (RCR) | payer MEDICARE, MEDICAID, SELFPAY ==
[2020-07-06 09:26] LABS: Absolute Lymphocyte Count 1.05 X10^3/uL (0.83-4.51); Absolute Neutrophil Count 2.3 X10^3/uL (2.0-7.7); Basophil# 0.04 X10^3/uL; Eosinophil# 0.08 X10^3/uL; Eosinophils% 2.1 % (0-5); Hematocrit 44.9 % (40-54); Hemoglobin 14.7 g/dL (13.0-16.5); Lymphocyte # 1.05 X10^3/ul (4.0); Lymphocyte % 27.6 % (19-41); Mean Corp Hgb Conc 32.7 g/dL (32-36); Mean Corpuscular Hgb 28.7 pg (27.0-32.0); Mean Corpuscular Volume 87.7 fL (80-94); Mean Platelet Vol. 10.4 fl (6.2-12.0); Monocyte# 0.31 X10^3/uL; Monocyte% 8.1 % (0-10); NRBC Flagged by Analyzer 0 % (0-5); Neutrophil # 2.32 X10^3/uL (2.7-7.7); Neutrophil % 60.9 % (47-70); Platelet Count 149 K/mm3 (150-450); RBC Distribution Width CV 13.4 % (11.6-14.6); RBC Distribution Width SD 43.2 fl (35.1-43.9); Red Blood Count 5.12 M/mm3 (4.6-6.2); White Blood Count 3.8 K/mm3 (4.4-11.0)
[2020-07-20 15:47] LABS: Absolute Lymphocyte Count 1.14 X10^3/uL (0.83-4.51); Absolute Neutrophil Count 2.5 X10^3/uL (2.0-7.7); Basophil# 0.04 X10^3/uL; Basophil% 0.9 % (0-1); Eosinophil# 0.17 X10^3/uL; Eosinophils% 3.9 % (0-5); Hematocrit 44.7 % (40-54); Hemoglobin 14.4 g/dL (13.0-16.5); Lymphocyte # 1.14 X10^3/ul (4.0); Mean Corp Hgb Conc 32.2 g/dL (32-36); Mean Corpuscular Hgb 29.3 pg (27.0-32.0); Mean Platelet Vol. 10.8 fl (6.2-12.0); Monocyte% 11.4 % (0-10); NRBC Flagged by Analyzer 0 % (0-5); Neutrophil # 2.53 X10^3/uL (2.7-7.7); Neutrophil % 57.6 % (47-70); Platelet Count 167 K/mm3 (150-450); RBC Distribution Width CV 13.8 % (11.6-14.6); RBC Distribution Width SD 45.7 fl (35.1-43.9); Red Blood Count 4.91 M/mm3 (4.6-6.2); White Blood Count 4.4 K/mm3 (4.4-11.0)
== END 2020-07-20 18:00 | disposition home or self-care (01) ==
LOC: LAB 14:54
PROVIDERS: Family Provider Family Medicine; PCP Family Medicine; Referring Provider Psychiatry & Neurology Child & Adolescent Psychiatry; Visit Provider Psychiatry & Neurology Child & Adolescent Psychiatry
DX: Z79.899 Other long term (current) drug therapy (principal)
CPT/HCPCS: 36415; 85025

== ENCOUNTER 2020-08-06 14:17 | Outpatient (RCR) | payer MEDICARE, MEDICAID, SELFPAY ==
[2020-08-06 15:05] LABS: Absolute Lymphocyte Count 1.49 X10^3/uL (0.83-4.51); Absolute Neutrophil Count 3.4 X10^3/uL (2.0-7.7); Basophil# 0.05 X10^3/uL; Basophil% 0.9 % (0-1); Eosinophil# 0.08 X10^3/uL; Eosinophils% 1.5 % (0-5); Hematocrit 47.4 % (40-54); Hemoglobin 15.4 g/dL (13.0-16.5); Lymphocyte # 1.49 X10^3/ul (4.0); Lymphocyte % 27.4 % (19-41); Mean Corp Hgb Conc 32.5 g/dL (32-36); Mean Corpuscular Hgb 29.3 pg (27.0-32.0); Mean Corpuscular Volume 90.1 fL (80-94); Mean Platelet Vol. 11.1 fl (6.2-12.0); Monocyte# 0.43 X10^3/uL; Monocyte% 7.9 % (0-10); NRBC Flagged by Analyzer 0 % (0-5); Neutrophil # 3.37 X10^3/uL (2.7-7.7); Neutrophil % 61.9 % (47-70); Platelet Count 176 K/mm3 (150-450); RBC Distribution Width CV 13.6 % (11.6-14.6); RBC Distribution Width SD 44.6 fl (35.1-43.9); Red Blood Count 5.26 M/mm3 (4.6-6.2); White Blood Count 5.4 K/mm3 (4.4-11.0)
== END 2020-08-06 18:00 | disposition home or self-care (01) ==
LOC: LAB 14:17
PROVIDERS: Family Provider Family Medicine; PCP Family Medicine; Referring Provider Psychiatry & Neurology Child & Adolescent Psychiatry; Visit Provider Psychiatry & Neurology Child & Adolescent Psychiatry
DX: Z79.899 Other long term (current) drug therapy (principal)
CPT/HCPCS: 36415; 85025

== ENCOUNTER 2020-09-14 12:21 | Outpatient (RCR) | payer MEDICARE, MEDICAID, SELFPAY ==
[2020-08-26 08:41] LABS: Absolute Neutrophil Count 1.8 X10^3/uL (2.0-7.7); Basophil# 0.05 X10^3/uL; Basophil% 1.4 % (0-1); Eosinophil# 0.11 X10^3/uL; Eosinophils% 3.1 % (0-5); Hematocrit 46.7 % (40-54); Hemoglobin 15.1 g/dL (13.0-16.5); Lymphocyte % 33.5 % (19-41); Mean Corp Hgb Conc 32.3 g/dL (32-36); Mean Corpuscular Hgb 29.4 pg (27.0-32.0); Mean Corpuscular Volume 90.9 fL (80-94); Mean Platelet Vol. 11.3 fl (6.2-12.0); Monocyte# 0.41 X10^3/uL; Monocyte% 11.5 % (0-10); NRBC Flagged by Analyzer 0 % (0-5); Neutrophil % 50.2 % (47-70); Platelet Count 147 K/mm3 (150-450); RBC Distribution Width CV 13.6 % (11.6-14.6); RBC Distribution Width SD 45.4 fl (35.1-43.9); Red Blood Count 5.14 M/mm3 (4.6-6.2); White Blood Count 3.6 K/mm3 (4.4-11.0)
[2020-08-26 09:10] LABS: Valproic Acid (Depakene) Level 50 ug/mL (50-100)
[2020-08-26 09:20] LABS: AST(SGOT) 24 U/L (15-37); Alanine Aminotransfer ALT/SGPT 42 U/L (16-61); Albumin, Serum 3.9 g/dL (3.2-5.0); Alkaline Phosphatase 133 U/L (45-117); Anion Gap 3 (5-15); BUN 12 mg/dL (7-18); Calcium,Total 8.9 mg/dL (8.5-10.1); Chloride 102 mmol/L (98-107); Creatinine, Serum 0.86 mg/dL (0.70-1.30); EST Glomerular Filtration Rate 98 mL/min (>60); Est Glom Filt Rate - Afr Amer 119 mL/min (>60); Globulin 3.9 g/dL (2.2-4.2); Glucose 86 mg/dL (74-106); Potassium 3.9 mmol/L (3.5-5.1); Protein, Total 7.8 g/dL (6.4-8.2); Sodium Level 138 mmol/L (136-145)
[2020-09-14 13:26] LABS: Absolute Lymphocyte Count 1.12 X10^3/uL (0.83-4.51); Absolute Neutrophil Count 2.9 X10^3/uL (2.0-7.7); Basophil# 0.05 X10^3/uL; Basophil% 1.1 % (0-1); Eosinophil# 0.14 X10^3/uL; Hematocrit 44.5 % (40-54); Hemoglobin 14.1 g/dL (13.0-16.5); Lymphocyte # 1.12 X10^3/ul (4.0); Lymphocyte % 24.2 % (19-41); Mean Corp Hgb Conc 31.7 g/dL (32-36); Mean Corpuscular Hgb 28.5 pg (27.0-32.0); Mean Corpuscular Volume 89.9 fL (80-94); Mean Platelet Vol. 11.1 fl (6.2-12.0); Monocyte# 0.43 X10^3/uL; Monocyte% 9.3 % (0-10); NRBC Flagged by Analyzer 0 % (0-5); Neutrophil # 2.88 X10^3/uL (2.7-7.7); Neutrophil % 62.2 % (47-70); Platelet Count 167 K/mm3 (150-450); RBC Distribution Width CV 13.4 % (11.6-14.6); RBC Distribution Width SD 44.6 fl (35.1-43.9); Red Blood Count 4.95 M/mm3 (4.6-6.2); White Blood Count 4.6 K/mm3 (4.4-11.0)
== END 2020-09-14 18:00 | disposition home or self-care (01) ==
LOC: LAB 12:21
PROVIDERS: Family Provider Family Medicine; PCP Family Medicine; Referring Provider Psychiatry & Neurology Child & Adolescent Psychiatry; Visit Provider Psychiatry & Neurology Child & Adolescent Psychiatry
DX: Z79.899 Other long term (current) drug therapy (principal)
CPT/HCPCS: 36415; 80053; 80164; 85025

== ENCOUNTER 2020-09-28 07:04 | Outpatient (RCR) | payer MEDICARE, MEDICAID, SELFPAY ==
[2020-09-28 08:06] LABS: Absolute Lymphocyte Count 1.32 X10^3/uL (0.83-4.51); Absolute Neutrophil Count 3.9 X10^3/uL (2.0-7.7); Basophil# 0.05 X10^3/uL; Basophil% 0.8 % (0-1); Eosinophil# 0.19 X10^3/uL; Eosinophils% 3.2 % (0-5); Hematocrit 44.2 % (40-54); Hemoglobin 14.6 g/dL (13.0-16.5); Lymphocyte # 1.32 X10^3/ul (4.0); Mean Corpuscular Hgb 28.9 pg (27.0-32.0); Mean Corpuscular Volume 87.5 fL (80-94); Mean Platelet Vol. 10.3 fl (6.2-12.0); Monocyte# 0.54 X10^3/uL; NRBC Flagged by Analyzer 0 % (0-5); Neutrophil # 3.86 X10^3/uL (2.7-7.7); Neutrophil % 64.3 % (47-70); Platelet Count 198 K/mm3 (150-450); RBC Distribution Width CV 13.2 % (11.6-14.6); RBC Distribution Width SD 42.1 fl (35.1-43.9); Red Blood Count 5.05 M/mm3 (4.6-6.2)
[2020-09-28 08:49] LABS: Valproic Acid (Depakene) Level 39 ug/mL (50-100)
[2020-09-28 08:50] LABS: ALB/GLOB Ratio 0.9 RATIO (0.9-2.4); AST(SGOT) 17 U/L (15-37); Alanine Aminotransfer ALT/SGPT 20 U/L (16-61); Albumin, Serum 3.6 g/dL (3.2-5.0); Alkaline Phosphatase 131 U/L (45-117); Anion Gap 6 (5-15); BUN 10 mg/dL (7-18); BUN/Creat Ratio 9.5 RATIO (10-20); Calcium,Total 8.9 mg/dL (8.5-10.1); Chloride 103 mmol/L (98-107); Creatinine, Serum 1.05 mg/dL (0.70-1.30); EST Glomerular Filtration Rate 78 mL/min (>60); Est Glom Filt Rate - Afr Amer 94 mL/min (>60); Globulin 3.8 g/dL (2.2-4.2); Glucose 91 mg/dL (74-106); Potassium 3.9 mmol/L (3.5-5.1); Protein, Total 7.4 g/dL (6.4-8.2); Sodium Level 140 mmol/L (136-145)
== END 2020-09-28 18:00 | disposition home or self-care (01) ==
LOC: LAB 07:04
PROVIDERS: Family Provider Family Medicine; PCP Family Medicine; Referring Provider Psychiatry & Neurology Child & Adolescent Psychiatry; Visit Provider Psychiatry & Neurology Child & Adolescent Psychiatry
DX: Z79.899 Other long term (current) drug therapy (principal)
CPT/HCPCS: 36415; 80053; 80164; 85025

== ENCOUNTER 2020-11-11 10:19 | Outpatient (RCR) | payer MEDICARE, MEDICAID, SELFPAY ==
[2020-11-11 10:46] LABS: Absolute Lymphocyte Count 1.08 X10^3/uL (0.83-4.51); Absolute Neutrophil Count 2.9 X10^3/uL (2.0-7.7); Basophil# 0.04 X10^3/uL; Basophil% 0.9 % (0-1); Eosinophil# 0.11 X10^3/uL; Eosinophils% 2.4 % (0-5); Hemoglobin 14.4 g/dL (13.0-16.5); Lymphocyte # 1.08 X10^3/ul (4.0); Lymphocyte % 23.5 % (19-41); Mean Corp Hgb Conc 32.7 g/dL (32-36); Mean Corpuscular Hgb 28.9 pg (27.0-32.0); Mean Corpuscular Volume 88.4 fL (80-94); Mean Platelet Vol. 10.5 fl (6.2-12.0); Monocyte% 10.9 % (0-10); NRBC Flagged by Analyzer 0 % (0-5); Neutrophil # 2.86 X10^3/uL (2.7-7.7); Neutrophil % 62.1 % (47-70); Platelet Count 160 K/mm3 (150-450); RBC Distribution Width CV 13.5 % (11.6-14.6); RBC Distribution Width SD 43.9 fl (35.1-43.9); Red Blood Count 4.98 M/mm3 (4.6-6.2); White Blood Count 4.6 K/mm3 (4.4-11.0)
[2020-11-11 11:26] LABS: AST(SGOT) 17 U/L (15-37); Alanine Aminotransfer ALT/SGPT 25 U/L (16-61); Albumin, Serum 3.8 g/dL (3.2-5.0); Alkaline Phosphatase 136 U/L (45-117); Anion Gap 2 (5-15); BUN 9 mg/dL (7-18); BUN/Creat Ratio 10.4 RATIO (10-20); Calcium,Total 9.4 mg/dL (8.5-10.1); Chloride 103 mmol/L (98-107); Creatinine, Serum 0.86 mg/dL (0.70-1.30); EST Glomerular Filtration Rate 98 mL/min (>60); Est Glom Filt Rate - Afr Amer 118 mL/min (>60); Glucose 80 mg/dL (74-106); Potassium 4.1 mmol/L (3.5-5.1); Protein, Total 7.8 g/dL (6.4-8.2); Sodium Level 138 mmol/L (136-145)
== END 2020-11-11 18:00 | disposition home or self-care (01) ==
LOC: LAB 10:19
PROVIDERS: Family Provider Family Medicine; PCP Family Medicine; Referring Provider Psychiatry & Neurology Child & Adolescent Psychiatry; Visit Provider Psychiatry & Neurology Child & Adolescent Psychiatry
DX: Z79.899 Other long term (current) drug therapy (principal)
CPT/HCPCS: 36415; 80053; 85025

== ENCOUNTER 2020-12-21 08:06 | Outpatient (RCR) | payer MEDICARE, MEDICAID, SELFPAY ==
[2020-11-23 08:13] LABS: Absolute Lymphocyte Count 0.87 X10^3/uL (0.83-4.51); Basophil# 0.05 X10^3/uL; Basophil% 0.6 % (0-1); Eosinophil# 0.12 X10^3/uL; Eosinophils% 1.4 % (0-5); Hematocrit 45.7 % (40-54); Hemoglobin 14.3 g/dL (13.0-16.5); Lymphocyte # 0.87 X10^3/ul (4.0); Lymphocyte % 9.9 % (19-41); Mean Corp Hgb Conc 31.3 g/dL (32-36); Mean Corpuscular Hgb 28.2 pg (27.0-32.0); Mean Corpuscular Volume 90.1 fL (80-94); Mean Platelet Vol. 10.6 fl (6.2-12.0); Monocyte# 0.75 X10^3/uL; Monocyte% 8.5 % (0-10); NRBC Flagged by Analyzer 0 % (0-5); Neutrophil # 6.95 X10^3/uL (2.7-7.7); Platelet Count 197 K/mm3 (150-450); RBC Distribution Width CV 13.6 % (11.6-14.6); RBC Distribution Width SD 44.8 fl (35.1-43.9); Red Blood Count 5.07 M/mm3 (4.6-6.2); White Blood Count 8.8 K/mm3 (4.4-11.0)
[2020-11-23 08:39] LABS: ALB/GLOB Ratio 0.9 RATIO (0.9-2.4); AST(SGOT) 22 U/L (15-37); Alanine Aminotransfer ALT/SGPT 34 U/L (16-61); Albumin, Serum 3.6 g/dL (3.2-5.0); Alkaline Phosphatase 126 U/L (45-117); Anion Gap 5 (5-15); BUN 11 mg/dL (7-18); BUN/Creat Ratio 12.6 RATIO (10-20); Calcium,Total 9.2 mg/dL (8.5-10.1); Chloride 101 mmol/L (98-107); Creatinine, Serum 0.87 mg/dL (0.70-1.30); EST Glomerular Filtration Rate 96 mL/min (>60); Est Glom Filt Rate - Afr Amer 116 mL/min (>60); Globulin 4.1 g/dL (2.2-4.2); Glucose 92 mg/dL (74-106); Potassium 3.8 mmol/L (3.5-5.1); Protein, Total 7.7 g/dL (6.4-8.2); Sodium Level 140 mmol/L (136-145)
[2020-12-02 07:44] LABS: Absolute Lymphocyte Count 1.23 X10^3/uL (0.83-4.51); Absolute Neutrophil Count 4.7 X10^3/uL (2.0-7.7); Basophil# 0.06 X10^3/uL; Basophil% 0.9 % (0-1); Eosinophil# 0.12 X10^3/uL; Eosinophils% 1.8 % (0-5); Hematocrit 45.2 % (40-54); Hemoglobin 14.6 g/dL (13.0-16.5); Lymphocyte # 1.23 X10^3/ul (4.0); Lymphocyte % 18.2 % (19-41); Mean Corp Hgb Conc 32.3 g/dL (32-36); Mean Corpuscular Hgb 29.4 pg (27.0-32.0); Mean Corpuscular Volume 90.9 fL (80-94); Mean Platelet Vol. 9.4 fl (6.2-12.0); Monocyte# 0.51 X10^3/uL; Monocyte% 7.5 % (0-10); NRBC Flagged by Analyzer 0 % (0-5); Neutrophil # 4.72 X10^3/uL (2.7-7.7); Neutrophil % 69.7 % (47-70); Platelet Count 223 K/mm3 (150-450); RBC Distribution Width CV 13.3 % (11.6-14.6); RBC Distribution Width SD 44.2 fl (35.1-43.9); Red Blood Count 4.97 M/mm3 (4.6-6.2); White Blood Count 6.8 K/mm3 (4.4-11.0)
[2020-12-02 08:10] LABS: Cholesterol 220 mg/dL (200); High Density Lipoprotein 34 mg/dL; Triglycerides 187 mg/dL; Very Low Density Lipoprotein 37 mg/dL (5-40)
[2020-12-02 08:15] LABS: Hemoglobin A1c 5.4 % (3.8-5.6)
[2020-12-21 08:29] LABS: Absolute Lymphocyte Count 1.27 X10^3/uL (0.83-4.51); Absolute Neutrophil Count 2.3 X10^3/uL (2.0-7.7); Basophil# 0.04 X10^3/uL; Basophil% 0.9 % (0-1); Eosinophil# 0.23 X10^3/uL; Eosinophils% 5.3 % (0-5); Hematocrit 46.2 % (40-54); Lymphocyte # 1.27 X10^3/ul (4.0); Lymphocyte % 29.3 % (19-41); Mean Corp Hgb Conc 32.5 g/dL (32-36); Mean Corpuscular Volume 89.4 fL (80-94); Mean Platelet Vol. 10.7 fl (6.2-12.0); Monocyte# 0.49 X10^3/uL; Monocyte% 11.3 % (0-10); NRBC Flagged by Analyzer 0 % (0-5); Neutrophil # 2.29 X10^3/uL (2.7-7.7); Platelet Count 173 K/mm3 (150-450); RBC Distribution Width CV 13.5 % (11.6-14.6); RBC Distribution Width SD 44.2 fl (35.1-43.9); Red Blood Count 5.17 M/mm3 (4.6-6.2); White Blood Count 4.3 K/mm3 (4.4-11.0)
== END 2020-12-21 18:00 | disposition home or self-care (01) ==
LOC: LAB 08:06
PROVIDERS: Family Provider Family Medicine; PCP Family Medicine; Referring Provider Psychiatry & Neurology Child & Adolescent Psychiatry; Visit Provider Psychiatry & Neurology Child & Adolescent Psychiatry
DX: Z79.899 Other long term (current) drug therapy (principal)
CPT/HCPCS: 36415; 80053; 80061; 83036; 85025

== ENCOUNTER 2021-01-18 14:44 | Outpatient (RCR) | payer MEDICARE, MEDICAID, SELFPAY ==
[2020-12-28 09:25] LABS: Valproic Acid (Depakene) Level 51 ug/mL (50-100)
[2021-01-04 14:45] LABS: Absolute Lymphocyte Count 1.32 X10^3/uL (0.83-4.51); Absolute Neutrophil Count 2.8 X10^3/uL (2.0-7.7); Basophil# 0.05 X10^3/uL; Basophil% 1.1 % (0-1); Eosinophil# 0.15 X10^3/uL; Eosinophils% 3.2 % (0-5); Hemoglobin 15.3 g/dL (13.0-16.5); Lymphocyte # 1.32 X10^3/ul (4.0); Lymphocyte % 28.4 % (19-41); Mean Corp Hgb Conc 32.6 g/dL (32-36); Mean Corpuscular Hgb 29.7 pg (27.0-32.0); Mean Corpuscular Volume 91.1 fL (80-94); Mean Platelet Vol. 10.7 fl (6.2-12.0); Monocyte# 0.29 X10^3/uL; Monocyte% 6.2 % (0-10); NRBC Flagged by Analyzer 0 % (0-5); Neutrophil % 60.2 % (47-70); Platelet Count 195 K/mm3 (150-450); RBC Distribution Width CV 13.5 % (11.6-14.6); RBC Distribution Width SD 45.5 fl (35.1-43.9); Red Blood Count 5.16 M/mm3 (4.6-6.2); White Blood Count 4.7 K/mm3 (4.4-11.0)
[2021-01-18 15:30] LABS: Absolute Lymphocyte Count 0.94 X10^3/uL (0.83-4.51); Absolute Neutrophil Count 3.1 X10^3/uL (2.0-7.7); Basophil# 0.04 X10^3/uL; Basophil% 0.9 % (0-1); Eosinophils% 2.1 % (0-5); Hematocrit 43.6 % (40-54); Lymphocyte # 0.94 X10^3/ul (0.83-4.51); Mean Corp Hgb Conc 32.1 g/dL (32-36); Mean Corpuscular Volume 90.5 fL (80-94); Mean Platelet Vol. 10.7 fl (6.2-12.0); Monocyte# 0.54 X10^3/uL; Monocyte% 11.5 % (0-10); NRBC Flagged by Analyzer 0 % (0-5); Neutrophil # 3.05 X10^3/uL (2.7-7.7); Neutrophil % 65.1 % (47-70); Platelet Count 203 K/mm3 (150-450); RBC Distribution Width CV 13.7 % (11.6-14.6); RBC Distribution Width SD 45.9 fl (35.1-43.9); Red Blood Count 4.82 M/mm3 (4.6-6.2); White Blood Count 4.7 K/mm3 (4.4-11.0)
[2021-01-18 16:00] LABS: ALB/GLOB Ratio 0.9 RATIO (0.9-2.4); AST(SGOT) 17 U/L (15-37); Alanine Aminotransfer ALT/SGPT 24 U/L (16-61); Albumin, Serum 3.8 g/dL (3.2-5.0); Alkaline Phosphatase 174 U/L (45-117); Anion Gap 5 (5-15); BUN 11 mg/dL (7-18); BUN/Creat Ratio 15.2 RATIO (10-20); Calcium,Total 9.3 mg/dL (8.5-10.1); Chloride 101 mmol/L (98-107); Creatinine, Serum 0.72 mg/dL (0.70-1.30); EST Glomerular Filtration Rate 119 mL/min (>60); Est Glom Filt Rate - Afr Amer 144 mL/min (>60); Globulin 4.1 g/dL (2.2-4.2); Glucose 97 mg/dL (74-106); Potassium 3.8 mmol/L (3.5-5.1); Protein, Total 7.9 g/dL (6.4-8.2); Sodium Level 140 mmol/L (136-145)
== END 2021-01-18 18:00 | disposition home or self-care (01) ==
LOC: LAB 14:44
PROVIDERS: Family Provider Family Medicine; PCP Family Medicine; Referring Provider Psychiatry & Neurology Child & Adolescent Psychiatry; Visit Provider Psychiatry & Neurology Child & Adolescent Psychiatry
DX: Z79.899 Other long term (current) drug therapy (principal)
CPT/HCPCS: 36415; 80053; 80164; 85025

== ENCOUNTER 2021-02-15 15:03 | Outpatient (RCR) | payer MEDICARE, MEDICAID, SELFPAY ==
[2021-02-03 16:13] LABS: Absolute Lymphocyte Count 1.04 X10^3/uL (0.83-4.51); Absolute Neutrophil Count 2.2 X10^3/uL (2.0-7.7); Basophil# 0.05 X10^3/uL; Basophil% 1.3 % (0-1); Eosinophil# 0.11 X10^3/uL; Eosinophils% 2.8 % (0-5); Hematocrit 45.9 % (40-54); Hemoglobin 14.8 g/dL (13.0-16.5); Lymphocyte # 1.04 X10^3/ul (0.83-4.51); Lymphocyte % 26.9 % (19-41); Mean Corp Hgb Conc 32.2 g/dL (32-36); Mean Corpuscular Hgb 28.6 pg (27.0-32.0); Mean Corpuscular Volume 88.8 fL (80-94); Mean Platelet Vol. 11.4 fl (6.2-12.0); Monocyte# 0.46 X10^3/uL; Monocyte% 11.9 % (0-10); NRBC Flagged by Analyzer 0 % (0-5); Neutrophil # 2.18 X10^3/uL (2.7-7.7); Neutrophil % 56.6 % (47-70); Platelet Count 160 K/mm3 (150-450); RBC Distribution Width CV 13.4 % (11.6-14.6); Red Blood Count 5.17 M/mm3 (4.6-6.2); White Blood Count 3.9 K/mm3 (4.4-11.0)
[2021-02-03 16:43] LABS: PSA,Total - Annual Screen 0.54 ng/mL (0.00-4.00)
[2021-02-15 15:48] LABS: Absolute Lymphocyte Count 1.02 X10^3/uL (0.83-4.51); Absolute Neutrophil Count 5.9 X10^3/uL (2.0-7.7); Basophil# 0.05 X10^3/uL; Basophil% 0.6 % (0-1); Eosinophil# 0.11 X10^3/uL; Eosinophils% 1.4 % (0-5); Hematocrit 43.3 % (40-54); Hemoglobin 14.1 g/dL (13.0-16.5); Lymphocyte # 1.02 X10^3/ul (0.83-4.51); Lymphocyte % 12.9 % (19-41); Mean Corp Hgb Conc 32.6 g/dL (32-36); Mean Corpuscular Hgb 28.9 pg (27.0-32.0); Mean Corpuscular Volume 88.7 fL (80-94); Mean Platelet Vol. 11.1 fl (6.2-12.0); Monocyte# 0.81 X10^3/uL; Monocyte% 10.2 % (0-10); NRBC Flagged by Analyzer 0 % (0-5); Neutrophil % 74.5 % (47-70); Platelet Count 171 K/mm3 (150-450); RBC Distribution Width CV 13.6 % (11.6-14.6); RBC Distribution Width SD 43.9 fl (35.1-43.9); Red Blood Count 4.88 M/mm3 (4.6-6.2); White Blood Count 7.9 K/mm3 (4.4-11.0)
[2021-02-15 16:56] LABS: ALB/GLOB Ratio 0.9 RATIO (0.9-2.4); AST(SGOT) 20 U/L (15-37); Alanine Aminotransfer ALT/SGPT 19 U/L (16-61); Albumin, Serum 3.8 g/dL (3.2-5.0); Alkaline Phosphatase 162 U/L (45-117); Anion Gap 5 (5-15); BUN 12 mg/dL (7-18); BUN/Creat Ratio 12.4 RATIO (10-20); Calcium,Total 9.1 mg/dL (8.5-10.1); Chloride 103 mmol/L (98-107); Creatinine, Serum 0.97 mg/dL (0.70-1.30); EST Glomerular Filtration Rate 85 mL/min (>60); Est Glom Filt Rate - Afr Amer 103 mL/min (>60); Globulin 4.2 g/dL (2.2-4.2); Glucose 77 mg/dL (74-106); Potassium 3.8 mmol/L (3.5-5.1); Sodium Level 139 mmol/L (136-145)
== END 2021-02-15 18:00 | disposition home or self-care (01) ==
LOC: LAB 15:03
PROVIDERS: Family Provider Family Medicine; PCP Family Medicine; Referring Provider Psychiatry & Neurology Child & Adolescent Psychiatry; Visit Provider Psychiatry & Neurology Child & Adolescent Psychiatry
DX: Z79.899 Other long term (current) drug therapy (principal); Z12.5 Encounter for screening for malignant neoplasm of prostate
CPT/HCPCS: 36415; 80053; 84153; 85025; G0103

== ENCOUNTER 2021-03-18 09:02 | Outpatient (RCR) | payer MEDICARE, MEDICAID, SELFPAY ==
[2021-03-02 12:39] LABS: Absolute Lymphocyte Count 1.06 X10^3/uL (0.83-4.51); Basophil# 0.03 X10^3/uL; Basophil% 0.9 % (0-1); Eosinophil# 0.08 X10^3/uL; Eosinophils% 2.3 % (0-5); Hematocrit 42.7 % (40-54); Hemoglobin 14.3 g/dL (13.0-16.5); Lymphocyte # 1.06 X10^3/ul (0.83-4.51); Lymphocyte % 30.6 % (19-41); Mean Corp Hgb Conc 33.5 g/dL (32-36); Mean Corpuscular Hgb 29.5 pg (27.0-32.0); Mean Platelet Vol. 11.1 fl (6.2-12.0); Monocyte# 0.25 X10^3/uL; Monocyte% 7.2 % (0-10); NRBC Flagged by Analyzer 0 % (0-5); Neutrophil # 2.02 X10^3/uL (2.7-7.7); Neutrophil % 58.4 % (47-70); Platelet Count 152 K/mm3 (150-450); RBC Distribution Width CV 13.4 % (11.6-14.6); RBC Distribution Width SD 43.1 fl (35.1-43.9); Red Blood Count 4.85 M/mm3 (4.6-6.2); White Blood Count 3.5 K/mm3 (4.4-11.0)
[2021-03-02 13:13] LABS: AST(SGOT) 19 U/L (15-37); Alanine Aminotransfer ALT/SGPT 23 U/L (16-61); Albumin, Serum 3.8 g/dL (3.2-5.0); Alkaline Phosphatase 151 U/L (45-117); Anion Gap 4 (5-15); BUN 10 mg/dL (7-18); BUN/Creat Ratio 11.9 RATIO (10-20); Calcium,Total 9.4 mg/dL (8.5-10.1); Chloride 102 mmol/L (98-107); Creatinine, Serum 0.84 mg/dL (0.70-1.30); EST Glomerular Filtration Rate 101 mL/min (>60); Est Glom Filt Rate - Afr Amer 122 mL/min (>60); Globulin 3.8 g/dL (2.2-4.2); Glucose 127 mg/dL (74-106); Potassium 3.9 mmol/L (3.5-5.1); Protein, Total 7.6 g/dL (6.4-8.2); Sodium Level 139 mmol/L (136-145)
[2021-03-18 09:38] LABS: Absolute Lymphocyte Count 0.93 X10^3/uL (0.83-4.51); Absolute Neutrophil Count 3.3 X10^3/uL (2.0-7.7); Basophil# 0.04 X10^3/uL; Basophil% 0.8 % (0-1); Eosinophil# 0.13 X10^3/uL; Eosinophils% 2.7 % (0-5); Hematocrit 45.1 % (40-54); Hemoglobin 14.7 g/dL (13.0-16.5); Lymphocyte # 0.93 X10^3/ul (0.83-4.51); Mean Corp Hgb Conc 32.6 g/dL (32-36); Mean Corpuscular Hgb 29.1 pg (27.0-32.0); Mean Corpuscular Volume 89.1 fL (80-94); Mean Platelet Vol. 10.4 fl (6.2-12.0); Monocyte# 0.49 X10^3/uL; NRBC Flagged by Analyzer 0 % (0-5); Neutrophil # 3.27 X10^3/uL (2.7-7.7); Neutrophil % 66.7 % (47-70); Platelet Count 191 K/mm3 (150-450); RBC Distribution Width CV 13.4 % (11.6-14.6); RBC Distribution Width SD 43.6 fl (35.1-43.9); Red Blood Count 5.06 M/mm3 (4.6-6.2); White Blood Count 4.9 K/mm3 (4.4-11.0)
[2021-03-18 09:55] LABS: ALB/GLOB Ratio 0.9 RATIO (0.9-2.4); AST(SGOT) 14 U/L (15-37); Alanine Aminotransfer ALT/SGPT 16 U/L (16-61); Albumin, Serum 3.6 g/dL (3.2-5.0); Alkaline Phosphatase 158 U/L (45-117); Anion Gap 6 (5-15); BUN 11 mg/dL (7-18); BUN/Creat Ratio 11.7 RATIO (10-20); Calcium,Total 9.2 mg/dL (8.5-10.1); Chloride 102 mmol/L (98-107); Creatinine, Serum 0.94 mg/dL (0.70-1.30); EST Glomerular Filtration Rate 88 mL/min (>60); Est Glom Filt Rate - Afr Amer 107 mL/min (>60); Globulin 3.8 g/dL (2.2-4.2); Glucose 130 mg/dL (74-106); Potassium 3.9 mmol/L (3.5-5.1); Protein, Total 7.4 g/dL (6.4-8.2); Sodium Level 139 mmol/L (136-145)
== END 2021-03-18 18:00 | disposition home or self-care (01) ==
LOC: LAB 09:02
PROVIDERS: Family Provider Family Medicine; PCP Family Medicine; Referring Provider Psychiatry & Neurology Child & Adolescent Psychiatry; Visit Provider Psychiatry & Neurology Child & Adolescent Psychiatry
DX: Z79.899 Other long term (current) drug therapy (principal)
CPT/HCPCS: 36415; 80053; 85025

== ENCOUNTER 2021-04-12 14:44 | Outpatient (RCR) | payer MEDICARE, MEDICAID, SELFPAY ==
[2021-03-25 08:26] LABS: Absolute Lymphocyte Count 1.27 X10^3/uL (0.83-4.51); Absolute Neutrophil Count 2.9 X10^3/uL (2.0-7.7); Basophil# 0.05 X10^3/uL; Eosinophil# 0.18 X10^3/uL; Eosinophils% 3.7 % (0-5); Hematocrit 45.3 % (40-54); Hemoglobin 14.8 g/dL (13.0-16.5); Lymphocyte # 1.27 X10^3/ul (0.83-4.51); Lymphocyte % 25.8 % (19-41); Mean Corp Hgb Conc 32.7 g/dL (32-36); Mean Corpuscular Hgb 28.7 pg (27.0-32.0); Mean Platelet Vol. 10.4 fl (6.2-12.0); Monocyte# 0.47 X10^3/uL; Monocyte% 9.6 % (0-10); NRBC Flagged by Analyzer 0 % (0-5); Neutrophil # 2.92 X10^3/uL (2.7-7.7); Neutrophil % 59.3 % (47-70); Platelet Count 180 K/mm3 (150-450); RBC Distribution Width CV 13.2 % (11.6-14.6); RBC Distribution Width SD 42.8 fl (35.1-43.9); Red Blood Count 5.15 M/mm3 (4.6-6.2); White Blood Count 4.9 K/mm3 (4.4-11.0)
[2021-03-25 08:52] LABS: AST(SGOT) 18 U/L (15-37); Alanine Aminotransfer ALT/SGPT 22 U/L (16-61); Albumin, Serum 3.7 g/dL (3.2-5.0); Alkaline Phosphatase 152 U/L (45-117); Anion Gap 5 (5-15); BUN 12 mg/dL (7-18); BUN/Creat Ratio 13.7 RATIO (10-20); Calcium,Total 8.7 mg/dL (8.5-10.1); Chloride 103 mmol/L (98-107); Creatinine, Serum 0.88 mg/dL (0.70-1.30); EST Glomerular Filtration Rate 96 mL/min (>60); Est Glom Filt Rate - Afr Amer 116 mL/min (>60); Globulin 3.7 g/dL (2.2-4.2); Glucose 94 mg/dL (74-106); Protein, Total 7.4 g/dL (6.4-8.2); Sodium Level 140 mmol/L (136-145)
[2021-04-12 15:53] LABS: Absolute Lymphocyte Count 1.14 X10^3/uL (0.83-4.51); Absolute Neutrophil Count 3.1 X10^3/uL (2.0-7.7); Basophil# 0.04 X10^3/uL; Basophil% 0.8 % (0-1); Eosinophil# 0.12 X10^3/uL; Eosinophils% 2.5 % (0-5); Hematocrit 42.9 % (40-54); Hemoglobin 14.3 g/dL (13.0-16.5); Lymphocyte # 1.14 X10^3/ul (0.83-4.51); Mean Corp Hgb Conc 33.3 g/dL (32-36); Mean Corpuscular Hgb 29.7 pg (27.0-32.0); Mean Platelet Vol. 11.3 fl (6.2-12.0); Monocyte# 0.39 X10^3/uL; Monocyte% 8.2 % (0-10); NRBC Flagged by Analyzer 0 % (0-5); Neutrophil # 3.05 X10^3/uL (2.7-7.7); Neutrophil % 64.3 % (47-70); Platelet Count 151 K/mm3 (150-450); RBC Distribution Width CV 13.2 % (11.6-14.6); RBC Distribution Width SD 43.2 fl (35.1-43.9); Red Blood Count 4.82 M/mm3 (4.6-6.2); White Blood Count 4.8 K/mm3 (4.4-11.0)
== END 2021-04-12 18:00 | disposition home or self-care (01) ==
LOC: LAB 14:44
PROVIDERS: Family Provider Family Medicine; PCP Family Medicine; Referring Provider Psychiatry & Neurology Child & Adolescent Psychiatry; Visit Provider Psychiatry & Neurology Child & Adolescent Psychiatry
DX: Z79.899 Other long term (current) drug therapy (principal)
CPT/HCPCS: 36415; 80053; 85025

== ENCOUNTER 2021-05-10 10:11 | Outpatient (RCR) | payer MEDICARE, MEDICAID, SELFPAY ==
[2021-04-26 17:11] LABS: Absolute Lymphocyte Count 1.04 X10^3/uL (0.83-4.51); Absolute Neutrophil Count 2.1 X10^3/uL (2.0-7.7); Basophil# 0.04 X10^3/uL; Basophil% 1.1 % (0-1); Eosinophil# 0.12 X10^3/uL; Eosinophils% 3.3 % (0-5); Hematocrit 45.6 % (40-54); Hemoglobin 14.8 g/dL (13.0-16.5); Lymphocyte # 1.04 X10^3/ul (0.83-4.51); Lymphocyte % 28.3 % (19-41); Mean Corp Hgb Conc 32.5 g/dL (32-36); Mean Corpuscular Hgb 28.8 pg (27.0-32.0); Mean Corpuscular Volume 88.9 fL (80-94); Mean Platelet Vol. 11.5 fl (6.2-12.0); Monocyte# 0.38 X10^3/uL; Monocyte% 10.4 % (0-10); NRBC Flagged by Analyzer 0 % (0-5); Neutrophil # 2.09 X10^3/uL (2.7-7.7); Neutrophil % 56.9 % (47-70); Platelet Count 164 K/mm3 (150-450); RBC Distribution Width CV 13.4 % (11.6-14.6); Red Blood Count 5.13 M/mm3 (4.6-6.2); White Blood Count 3.7 K/mm3 (4.4-11.0)
[2021-04-26 17:48] LABS: AST(SGOT) 21 U/L (15-37); Alanine Aminotransfer ALT/SGPT 29 U/L (16-61); Alkaline Phosphatase 140 U/L (45-117); Anion Gap 4 (5-15); BUN 12 mg/dL (7-18); BUN/Creat Ratio 15.6 RATIO (10-20); Calcium,Total 8.7 mg/dL (8.5-10.1); Chloride 100 mmol/L (98-107); Creatinine, Serum 0.77 mg/dL (0.70-1.30); EST Glomerular Filtration Rate 111 mL/min (>60); Est Glom Filt Rate - Afr Amer 135 mL/min (>60); Globulin 3.9 g/dL (2.2-4.2); Glucose 49 mg/dL (74-106); Potassium 3.8 mmol/L (3.5-5.1); Protein, Total 7.9 g/dL (6.4-8.2); Sodium Level 138 mmol/L (136-145)
[2021-05-10 10:46] LABS: Absolute Lymphocyte Count 1.02 X10^3/uL (0.83-4.51); Basophil# 0.03 X10^3/uL; Basophil% 0.9 % (0-1); Eosinophil# 0.09 X10^3/uL; Eosinophils% 2.6 % (0-5); Hematocrit 44.3 % (40-54); Hemoglobin 14.6 g/dL (13.0-16.5); Lymphocyte # 1.02 X10^3/ul (0.83-4.51); Lymphocyte % 29.1 % (19-41); Mean Corpuscular Hgb 29.1 pg (27.0-32.0); Mean Corpuscular Volume 88.4 fL (80-94); Mean Platelet Vol. 10.5 fl (6.2-12.0); Monocyte# 0.37 X10^3/uL; Monocyte% 10.6 % (0-10); NRBC Flagged by Analyzer 0 % (0-5); Neutrophil # 1.97 X10^3/uL (2.7-7.7); Neutrophil % 56.2 % (47-70); Platelet Count 168 K/mm3 (150-450); RBC Distribution Width CV 13.2 % (11.6-14.6); RBC Distribution Width SD 42.9 fl (35.1-43.9); Red Blood Count 5.01 M/mm3 (4.6-6.2); White Blood Count 3.5 K/mm3 (4.4-11.0)
== END 2021-05-10 18:00 | disposition home or self-care (01) ==
LOC: LAB 10:11
PROVIDERS: Family Provider Family Medicine; PCP Family Medicine; Referring Provider Psychiatry & Neurology Child & Adolescent Psychiatry; Visit Provider Psychiatry & Neurology Child & Adolescent Psychiatry
DX: Z79.899 Other long term (current) drug therapy (principal)
CPT/HCPCS: 36415; 80053; 85025

== ENCOUNTER 2021-06-07 07:24 | Outpatient (RCR) | payer MEDICARE, MEDICAID, SELFPAY ==
[2021-05-24 20:09] VITALS: BMI 27.6
[2021-06-07 08:16] LABS: Absolute Lymphocyte Count 1.44 X10^3/uL (0.83-4.51); Basophil# 0.06 X10^3/uL; Basophil% 1.1 % (0-1); Eosinophil# 0.13 X10^3/uL; Eosinophils% 2.5 % (0-5); Hematocrit 42.2 % (40-54); Hemoglobin 13.7 g/dL (13.0-16.5); Lymphocyte # 1.44 X10^3/ul (0.83-4.51); Lymphocyte % 27.5 % (19-41); Mean Corp Hgb Conc 32.5 g/dL (32-36); Mean Corpuscular Hgb 29.2 pg (27.0-32.0); Mean Platelet Vol. 9.5 fl (6.2-12.0); Monocyte# 0.46 X10^3/uL; Monocyte% 8.8 % (0-10); NRBC Flagged by Analyzer 0 % (0-5); Neutrophil # 2.96 X10^3/uL (2.7-7.7); Neutrophil % 56.5 % (47-70); Platelet Count 240 K/mm3 (150-450); RBC Distribution Width CV 13.4 % (11.6-14.6); RBC Distribution Width SD 43.7 fl (35.1-43.9); Red Blood Count 4.69 M/mm3 (4.6-6.2); White Blood Count 5.2 K/mm3 (4.4-11.0)
[2021-06-07 08:43] LABS: ALB/GLOB Ratio 0.7 RATIO (0.9-2.4); AST(SGOT) 15 U/L (15-37); Alanine Aminotransfer ALT/SGPT 19 U/L (16-61); Albumin, Serum 3.2 g/dL (3.2-5.0); Alkaline Phosphatase 140 U/L (45-117); Anion Gap 5 (5-15); BUN 12 mg/dL (7-18); BUN/Creat Ratio 16.4 RATIO (10-20); Calcium,Total 8.9 mg/dL (8.5-10.1); Chloride 104 mmol/L (98-107); Creatinine, Serum 0.73 mg/dL (0.70-1.30); EST Glomerular Filtration Rate 118 mL/min (>60); Est Glom Filt Rate - Afr Amer 142 mL/min (>60); Globulin 4.3 g/dL (2.2-4.2); Glucose 96 mg/dL (74-106); Potassium 3.8 mmol/L (3.5-5.1); Protein, Total 7.5 g/dL (6.4-8.2); Sodium Level 139 mmol/L (136-145)
== END 2021-06-07 18:00 | disposition home or self-care (01) ==
LOC: LAB 07:24
PROVIDERS: Family Provider Family Medicine; PCP Family Medicine; Referring Provider Psychiatry & Neurology Child & Adolescent Psychiatry; Visit Provider Psychiatry & Neurology Child & Adolescent Psychiatry
DX: Z79.899 Other long term (current) drug therapy (principal)
CPT/HCPCS: 36415; 80053; 85025

== ENCOUNTER 2021-07-05 07:08 | Outpatient (RCR) | payer MEDICARE, MEDICAID, SELFPAY ==
[2021-06-23 20:25] VITALS: BMI 27.6
[2021-07-05 08:08] LABS: Absolute Lymphocyte Count 1.13 X10^3/uL (0.83-4.51); Basophil# 0.04 X10^3/uL; Basophil% 1.1 % (0-1); Eosinophil# 0.11 X10^3/uL; Hematocrit 43.8 % (40-54); Hemoglobin 14.7 g/dL (13.0-16.5); Lymphocyte # 1.13 X10^3/ul (0.83-4.51); Lymphocyte % 30.8 % (19-41); Mean Corp Hgb Conc 33.6 g/dL (32-36); Mean Corpuscular Hgb 30.2 pg (27.0-32.0); Mean Corpuscular Volume 89.9 fL (80-94); Mean Platelet Vol. 10.9 fl (6.2-12.0); Monocyte# 0.38 X10^3/uL; Monocyte% 10.4 % (0-10); NRBC Flagged by Analyzer 0 % (0-5); Neutrophil % 54.4 % (47-70); Platelet Count 164 K/mm3 (150-450); RBC Distribution Width CV 13.8 % (11.6-14.6); RBC Distribution Width SD 45.8 fl (35.1-43.9); Red Blood Count 4.87 M/mm3 (4.6-6.2); White Blood Count 3.7 K/mm3 (4.4-11.0)
[2021-07-05 08:36] LABS: ALB/GLOB Ratio 0.9 RATIO (0.9-2.4); AST(SGOT) 17 U/L (15-37); Alanine Aminotransfer ALT/SGPT 22 U/L (16-61); Albumin, Serum 3.4 g/dL (3.2-5.0); Alkaline Phosphatase 132 U/L (45-117); Anion Gap 6 (5-15); BUN 16 mg/dL (7-18); BUN/Creat Ratio 17.2 RATIO (10-20); Chloride 103 mmol/L (98-107); Creatinine, Serum 0.93 mg/dL (0.70-1.30); EST Glomerular Filtration Rate 89 mL/min (>60); Est Glom Filt Rate - Afr Amer 108 mL/min (>60); Globulin 3.9 g/dL (2.2-4.2); Glucose 86 mg/dL (74-106); Potassium 4.2 mmol/L (3.5-5.1); Protein, Total 7.3 g/dL (6.4-8.2); Sodium Level 142 mmol/L (136-145)
== END 2021-07-24 03:42 | disposition home or self-care (01) ==
LOC: LAB 07:08
PROVIDERS: Family Provider Family Medicine; PCP Family Medicine; Referring Provider Psychiatry & Neurology Child & Adolescent Psychiatry; Visit Provider Psychiatry & Neurology Child & Adolescent Psychiatry
DX: Z79.899 Other long term (current) drug therapy (principal)
CPT/HCPCS: 36415; 80053; 85025

== ENCOUNTER 2021-08-02 07:47 | Outpatient (RCR) | payer MEDICARE, MEDICAID, SELFPAY ==
[2021-07-24 03:42] VITALS: BMI 27.6
[2021-08-02 08:23] LABS: Absolute Neutrophil Count 1.7 X10^3/uL (2.0-7.7); Basophil# 0.04 X10^3/uL; Basophil% 1.3 % (0-1); Eosinophil# 0.09 X10^3/uL; Eosinophils% 2.9 % (0-5); Hematocrit 47.1 % (40-54); Hemoglobin 15.9 g/dL (13.0-16.5); Lymphocyte % 31.8 % (19-41); Mean Corp Hgb Conc 33.8 g/dL (32-36); Mean Corpuscular Hgb 29.9 pg (27.0-32.0); Mean Corpuscular Volume 88.7 fL (80-94); Mean Platelet Vol. 10.3 fl (6.2-12.0); Monocyte% 9.6 % (0-10); NRBC Flagged by Analyzer 0 % (0-5); Neutrophil % 54.1 % (47-70); Platelet Count 181 K/mm3 (150-450); RBC Distribution Width CV 13.3 % (11.6-14.6); RBC Distribution Width SD 43.4 fl (35.1-43.9); Red Blood Count 5.31 M/mm3 (4.6-6.2); White Blood Count 3.1 K/mm3 (4.4-11.0)
[2021-08-02 09:03] LABS: AST(SGOT) 15 U/L (15-37); Alanine Aminotransfer ALT/SGPT 18 U/L (16-61); Albumin, Serum 3.9 g/dL (3.2-5.0); Alkaline Phosphatase 148 U/L (45-117); Anion Gap 2 (5-15); BUN 10 mg/dL (7-18); BUN/Creat Ratio 11.1 RATIO (10-20); Calcium,Total 9.1 mg/dL (8.5-10.1); Chloride 103 mmol/L (98-107); EST Glomerular Filtration Rate 93 mL/min (>60); Est Glom Filt Rate - Afr Amer 112 mL/min (>60); Glucose 96 mg/dL (74-106); Potassium 3.9 mmol/L (3.5-5.1); Protein, Total 7.9 g/dL (6.4-8.2); Sodium Level 140 mmol/L (136-145)
== END 2021-08-23 18:00 | disposition home or self-care (01) ==
LOC: LAB 07:47
PROVIDERS: Family Provider Family Medicine; PCP Family Medicine; Referring Provider Psychiatry & Neurology Child & Adolescent Psychiatry; Visit Provider Psychiatry & Neurology Child & Adolescent Psychiatry
DX: Z79.899 Other long term (current) drug therapy (principal)
CPT/HCPCS: 36415; 80053; 85025

== ENCOUNTER 2021-09-05 10:23 | Outpatient (RCR) | payer MEDICARE, MEDICAID, SELFPAY ==
[2021-08-24 02:20] VITALS: BMI 27.6
[2021-09-01 09:33] LABS: Absolute Lymphocyte Count 1.01 X10^3/uL (0.83-4.51); Absolute Neutrophil Count 1.4 X10^3/uL (2.0-7.7); Basophil# 0.04 X10^3/uL; Basophil% 1.3 % (0-1); Eosinophil# 0.11 X10^3/uL; Eosinophils% 3.7 % (0-5); Hematocrit 43.6 % (40-54); Hemoglobin 14.8 g/dL (13.0-16.5); Lymphocyte # 1.01 X10^3/ul (0.83-4.51); Lymphocyte % 33.8 % (19-41); Mean Corp Hgb Conc 33.9 g/dL (32-36); Mean Corpuscular Hgb 29.8 pg (27.0-32.0); Mean Corpuscular Volume 87.9 fL (80-94); Mean Platelet Vol. 11.4 fl (6.2-12.0); Monocyte# 0.37 X10^3/uL; Monocyte% 12.4 % (0-10); NRBC Flagged by Analyzer 0 % (0-5); Neutrophil # 1.44 X10^3/uL (2.7-7.7); Neutrophil % 48.1 % (47-70); Platelet Count 147 K/mm3 (150-450); RBC Distribution Width CV 13.4 % (11.6-14.6); RBC Distribution Width SD 42.9 fl (35.1-43.9); Red Blood Count 4.96 M/mm3 (4.6-6.2)
[2021-09-01 10:18] LABS: ALB/GLOB Ratio 0.9 RATIO (0.9-2.4); AST(SGOT) 19 U/L (15-37); Alanine Aminotransfer ALT/SGPT 24 U/L (16-61); Albumin, Serum 3.5 g/dL (3.2-5.0); Alkaline Phosphatase 149 U/L (45-117); Anion Gap 6 (5-15); BUN 11 mg/dL (7-18); BUN/Creat Ratio 14.1 RATIO (10-20); Calcium,Total 9.1 mg/dL (8.5-10.1); Chloride 103 mmol/L (98-107); Creatinine, Serum 0.78 mg/dL (0.70-1.30); EST Glomerular Filtration Rate 109 mL/min (>60); Est Glom Filt Rate - Afr Amer 132 mL/min (>60); Globulin 3.8 g/dL (2.2-4.2); Glucose 92 mg/dL (74-106); Potassium 3.9 mmol/L (3.5-5.1); Protein, Total 7.3 g/dL (6.4-8.2); Sodium Level 140 mmol/L (136-145)
[2021-09-05 10:54] LABS: Absolute Lymphocyte Count 0.61 X10^3/uL (0.83-4.51); Absolute Neutrophil Count 2.7 X10^3/uL (2.0-7.7); Basophil# 0.03 X10^3/uL; Basophil% 0.8 % (0-1); Eosinophils% 2.5 % (0-5); Hematocrit 42.7 % (40-54); Hemoglobin 14.3 g/dL (13.0-16.5); Lymphocyte # 0.61 X10^3/ul (0.83-4.51); Lymphocyte % 15.3 % (19-41); Mean Corp Hgb Conc 33.5 g/dL (32-36); Mean Corpuscular Volume 89.7 fL (80-94); Mean Platelet Vol. 10.9 fl (6.2-12.0); Monocyte# 0.57 X10^3/uL; Monocyte% 14.3 % (0-10); NRBC Flagged by Analyzer 0 % (0-5); Neutrophil # 2.68 X10^3/uL (2.7-7.7); Neutrophil % 66.8 % (47-70); Platelet Count 144 K/mm3 (150-450); RBC Distribution Width CV 13.4 % (11.6-14.6); RBC Distribution Width SD 44.1 fl (35.1-43.9); Red Blood Count 4.76 M/mm3 (4.6-6.2)
== END 2021-09-24 18:00 | disposition home or self-care (01) ==
LOC: LAB 10:23
PROVIDERS: Family Provider Family Medicine; PCP Family Medicine; Referring Provider Psychiatry & Neurology Child & Adolescent Psychiatry; Visit Provider Psychiatry & Neurology Child & Adolescent Psychiatry
DX: Z79.899 Other long term (current) drug therapy (principal)
CPT/HCPCS: 36415; 80053; 85025

== ENCOUNTER 2021-09-28 08:22 | Outpatient (RCR) | payer MEDICARE, MEDICAID, SELFPAY ==
[2021-09-25 04:08] VITALS: BMI 27.6
[2021-09-28 09:51] LABS: Absolute Lymphocyte Count 1.12 X10^3/uL (0.83-4.51); Absolute Neutrophil Count 1.9 X10^3/uL (2.0-7.7); Basophil# 0.03 X10^3/uL; Basophil% 0.8 % (0-1); Eosinophil# 0.09 X10^3/uL; Eosinophils% 2.5 % (0-5); Hematocrit 43.3 % (40-54); Hemoglobin 14.4 g/dL (13.0-16.5); Lymphocyte # 1.12 X10^3/ul (0.83-4.51); Lymphocyte % 31.7 % (19-41); Mean Corp Hgb Conc 33.3 g/dL (32-36); Mean Corpuscular Hgb 29.8 pg (27.0-32.0); Mean Corpuscular Volume 89.5 fL (80-94); Mean Platelet Vol. 11.1 fl (6.2-12.0); Monocyte# 0.37 X10^3/uL; Monocyte% 10.5 % (0-10); NRBC Flagged by Analyzer 0 % (0-5); Neutrophil # 1.91 X10^3/uL (2.7-7.7); Neutrophil % 54.2 % (47-70); Platelet Count 179 K/mm3 (150-450); RBC Distribution Width CV 13.4 % (11.6-14.6); RBC Distribution Width SD 43.8 fl (35.1-43.9); Red Blood Count 4.84 M/mm3 (4.6-6.2); White Blood Count 3.5 K/mm3 (4.4-11.0)
[2021-09-28 10:09] LABS: ALB/GLOB Ratio 0.9 RATIO (0.9-2.4); AST(SGOT) 21 U/L (15-37); Alanine Aminotransfer ALT/SGPT 32 U/L (16-61); Albumin, Serum 3.5 g/dL (3.2-5.0); Alkaline Phosphatase 121 U/L (45-117); Anion Gap 4 (5-15); BUN 13 mg/dL (7-18); BUN/Creat Ratio 16.7 RATIO (10-20); Chloride 103 mmol/L (98-107); Creatinine, Serum 0.78 mg/dL (0.70-1.30); EST Glomerular Filtration Rate 110 mL/min (>60); Est Glom Filt Rate - Afr Amer 133 mL/min (>60); Globulin 3.8 g/dL (2.2-4.2); Glucose 86 mg/dL (74-106); Potassium 4.1 mmol/L (3.5-5.1); Protein, Total 7.3 g/dL (6.4-8.2); Sodium Level 141 mmol/L (136-145)
== END 2021-10-24 18:00 | disposition home or self-care (01) ==
LOC: LAB 08:22
PROVIDERS: Family Provider Family Medicine; PCP Family Medicine; Referring Provider Psychiatry & Neurology Child & Adolescent Psychiatry; Visit Provider Psychiatry & Neurology Child & Adolescent Psychiatry
DX: Z79.899 Other long term (current) drug therapy (principal)
CPT/HCPCS: 36415; 80053; 85025

== ENCOUNTER 2021-11-01 08:28 | Outpatient (RCR) | payer MEDICARE, MEDICAID, SELFPAY ==
[2021-10-24 22:56] VITALS: BMI 27.6
[2021-11-01 09:18] LABS: Absolute Lymphocyte Count 1.08 X10^3/uL (0.83-4.51); Absolute Neutrophil Count 5.2 X10^3/uL (2.0-7.7); Basophil# 0.04 X10^3/uL; Basophil% 0.6 % (0-1); Eosinophil# 0.09 X10^3/uL; Eosinophils% 1.2 % (0-5); Hematocrit 45.9 % (40-54); Lymphocyte # 1.08 X10^3/ul (0.83-4.51); Mean Corp Hgb Conc 32.7 g/dL (32-36); Mean Corpuscular Hgb 29.2 pg (27.0-32.0); Mean Corpuscular Volume 89.5 fL (80-94); Mean Platelet Vol. 10.3 fl (6.2-12.0); Monocyte# 0.74 X10^3/uL; Monocyte% 10.3 % (0-10); NRBC Flagged by Analyzer 0 % (0-5); Neutrophil # 5.24 X10^3/uL (2.7-7.7); Neutrophil % 72.6 % (47-70); Platelet Count 195 K/mm3 (150-450); RBC Distribution Width CV 13.6 % (11.6-14.6); RBC Distribution Width SD 44.4 fl (35.1-43.9); Red Blood Count 5.13 M/mm3 (4.6-6.2); White Blood Count 7.2 K/mm3 (4.4-11.0)
[2021-11-01 09:43] LABS: Valproic Acid (Depakene) Level 44 ug/mL (50-100)
[2021-11-01 09:43] LABS: ALB/GLOB Ratio 0.9 RATIO (0.9-2.4); AST(SGOT) 17 U/L (15-37); Alanine Aminotransfer ALT/SGPT 22 U/L (16-61); Albumin, Serum 3.7 g/dL (3.2-5.0); Alkaline Phosphatase 135 U/L (45-117); Anion Gap 7 (5-15); BUN 14 mg/dL (7-18); BUN/Creat Ratio 16.1 RATIO (10-20); Calcium,Total 9.1 mg/dL (8.5-10.1); Chloride 102 mmol/L (98-107); Creatinine, Serum 0.87 mg/dL (0.70-1.30); EST Glomerular Filtration Rate 96 mL/min (>60); Est Glom Filt Rate - Afr Amer 117 mL/min (>60); Globulin 4.3 g/dL (2.2-4.2); Glucose 94 mg/dL (74-106); Sodium Level 139 mmol/L (136-145)
== END 2021-11-01 18:00 | disposition home or self-care (01) ==
LOC: LAB 08:28
PROVIDERS: Family Provider Family Medicine; PCP Family Medicine; Referring Provider Psychiatry & Neurology Child & Adolescent Psychiatry; Visit Provider Psychiatry & Neurology Child & Adolescent Psychiatry
DX: Z79.899 Other long term (current) drug therapy (principal)
CPT/HCPCS: 36415; 80053; 80164; 85025

== ENCOUNTER 2021-12-20 09:02 | Outpatient (RCR) | payer MEDICARE, MEDICAID, SELFPAY ==
[2021-11-22 09:47] VITALS: BMI 27.6
[2021-12-02 07:42] LABS: Absolute Lymphocyte Count 1.06 X10^3/uL (0.83-4.51); Basophil# 0.03 X10^3/uL; Basophil% 0.8 % (0-1); Eosinophil# 0.11 X10^3/uL; Eosinophils% 3.1 % (0-5); Hematocrit 44.8 % (40-54); Hemoglobin 15.3 g/dL (13.0-16.5); Lymphocyte # 1.06 X10^3/ul (0.83-4.51); Lymphocyte % 29.6 % (19-41); Mean Corp Hgb Conc 34.2 g/dL (32-36); Mean Corpuscular Hgb 30.7 pg (27.0-32.0); Mean Corpuscular Volume 89.8 fL (80-94); Mean Platelet Vol. 10.9 fl (6.2-12.0); Monocyte% 11.2 % (0-10); NRBC Flagged by Analyzer 0 % (0-5); Neutrophil # 1.97 X10^3/uL (2.7-7.7); Platelet Count 149 K/mm3 (150-450); RBC Distribution Width CV 13.8 % (11.6-14.6); RBC Distribution Width SD 45.5 fl (35.1-43.9); Red Blood Count 4.99 M/mm3 (4.6-6.2); White Blood Count 3.6 K/mm3 (4.4-11.0)
[2021-12-02 08:02] LABS: AST(SGOT) 19 U/L (15-37); Alanine Aminotransfer ALT/SGPT 33 U/L (16-61); Alkaline Phosphatase 148 U/L (45-117); Anion Gap 2 (5-15); BUN 14 mg/dL (7-18); BUN/Creat Ratio 14.9 RATIO (10-20); Chloride 102 mmol/L (98-107); Cholesterol 183 mg/dL (200); Creatinine, Serum 0.94 mg/dL (0.70-1.30); EST Glomerular Filtration Rate 88 mL/min (>60); Est Glom Filt Rate - Afr Amer 107 mL/min (>60); Glucose 100 mg/dL (74-106); High Density Lipoprotein 38 mg/dL; Potassium 4.1 mmol/L (3.5-5.1); Sodium Level 140 mmol/L (136-145); Triglycerides 104 mg/dL; Very Low Density Lipoprotein 21 mg/dL (5-40)
[2021-12-02 08:04] LABS: Valproic Acid (Depakene) Level 38 ug/mL (50-100)
[2021-12-02 08:09] LABS: Hemoglobin A1c 5.4 % (3.8-5.6)
[2021-12-20 09:16] LABS: Absolute Lymphocyte Count 1.34 X10^3/uL (0.83-4.51); Absolute Neutrophil Count 2.2 X10^3/uL (2.0-7.7); Basophil# 0.05 X10^3/uL; Basophil% 1.2 % (0-1); Eosinophil# 0.12 X10^3/uL; Eosinophils% 2.9 % (0-5); Hematocrit 42.3 % (40-54); Hemoglobin 14.5 g/dL (13.0-16.5); Lymphocyte # 1.34 X10^3/ul (0.83-4.51); Lymphocyte % 32.3 % (19-41); Mean Corp Hgb Conc 34.3 g/dL (32-36); Mean Corpuscular Hgb 30.4 pg (27.0-32.0); Mean Corpuscular Volume 88.7 fL (80-94); Mean Platelet Vol. 11.1 fl (6.2-12.0); Monocyte% 9.6 % (0-10); NRBC Flagged by Analyzer 0 % (0-5); Neutrophil # 2.19 X10^3/uL (2.7-7.7); Neutrophil % 52.8 % (47-70); Platelet Count 166 K/mm3 (150-450); RBC Distribution Width CV 13.6 % (11.6-14.6); RBC Distribution Width SD 44.6 fl (35.1-43.9); Red Blood Count 4.77 M/mm3 (4.6-6.2); White Blood Count 4.2 K/mm3 (4.4-11.0)
[2021-12-20 09:34] LABS: ALB/GLOB Ratio 1.1 RATIO (0.9-2.4); AST(SGOT) 20 U/L (15-37); Alanine Aminotransfer ALT/SGPT 30 U/L (16-61); Albumin, Serum 3.7 g/dL (3.2-5.0); Alkaline Phosphatase 147 U/L (45-117); Anion Gap 3 (5-15); BUN 15 mg/dL (7-18); BUN/Creat Ratio 18.4 RATIO (10-20); Calcium,Total 9.2 mg/dL (8.5-10.1); Chloride 102 mmol/L (98-107); Creatinine, Serum 0.82 mg/dL (0.70-1.30); EST Glomerular Filtration Rate 104 mL/min (>60); Est Glom Filt Rate - Afr Amer 125 mL/min (>60); Globulin 3.4 g/dL (2.2-4.2); Glucose 96 mg/dL (74-106); Potassium 4.1 mmol/L (3.5-5.1); Protein, Total 7.1 g/dL (6.4-8.2); Sodium Level 139 mmol/L (136-145)
== END 2021-12-22 18:00 | disposition home or self-care (01) ==
LOC: LAB 09:02
PROVIDERS: Family Provider Family Medicine; PCP Family Medicine; Referring Provider Psychiatry & Neurology Child & Adolescent Psychiatry; Visit Provider Psychiatry & Neurology Child & Adolescent Psychiatry
DX: Z79.899 Other long term (current) drug therapy (principal)
CPT/HCPCS: 36415; 80053; 80061; 80164; 83036; 85025

== ENCOUNTER 2022-01-17 10:46 | Outpatient (RCR) | payer MEDICARE, MEDICAID, SELFPAY ==
[2021-12-23 01:45] VITALS: BMI 27.6
[2022-01-17 11:08] LABS: Absolute Lymphocyte Count 0.98 X10^3/uL (0.83-4.51); Absolute Neutrophil Count 3.2 X10^3/uL (2.0-7.7); Basophil# 0.03 X10^3/uL; Basophil% 0.6 % (0-1); Eosinophil# 0.09 X10^3/uL; Eosinophils% 1.9 % (0-5); Hemoglobin 14.8 g/dL (13.0-16.5); Lymphocyte # 0.98 X10^3/ul (0.83-4.51); Lymphocyte % 20.7 % (19-41); Mean Corp Hgb Conc 32.9 g/dL (32-36); Mean Corpuscular Hgb 29.8 pg (27.0-32.0); Mean Corpuscular Volume 90.5 fL (80-94); Monocyte# 0.43 X10^3/uL; Monocyte% 9.1 % (0-10); NRBC Flagged by Analyzer 0 % (0-5); Neutrophil # 3.18 X10^3/uL (2.7-7.7); Neutrophil % 67.3 % (47-70); Platelet Count 155 K/mm3 (150-450); RBC Distribution Width CV 13.4 % (11.6-14.6); RBC Distribution Width SD 44.4 fl (35.1-43.9); Red Blood Count 4.97 M/mm3 (4.6-6.2); White Blood Count 4.7 K/mm3 (4.4-11.0)
[2022-01-17 11:27] LABS: ALB/GLOB Ratio 1.2 RATIO (0.9-2.4); AST(SGOT) 15 U/L (15-37); Alanine Aminotransfer ALT/SGPT 26 U/L (16-61); Albumin, Serum 4.2 g/dL (3.2-5.0); Alkaline Phosphatase 152 U/L (45-117); Anion Gap 5 (5-15); BUN 12 mg/dL (7-18); BUN/Creat Ratio 12.8 RATIO (10-20); Chloride 101 mmol/L (98-107); Creatinine, Serum 0.94 mg/dL (0.70-1.30); EST Glomerular Filtration Rate 88 mL/min (>60); Est Glom Filt Rate - Afr Amer 106 mL/min (>60); Globulin 3.6 g/dL (2.2-4.2); Glucose 96 mg/dL (74-106); Potassium 4.3 mmol/L (3.5-5.1); Protein, Total 7.8 g/dL (6.4-8.2); Sodium Level 139 mmol/L (136-145)
== END 2022-01-17 18:00 | disposition home or self-care (01) ==
LOC: LAB 10:46
PROVIDERS: Family Provider Family Medicine; PCP Family Medicine; Referring Provider Psychiatry & Neurology Child & Adolescent Psychiatry; Visit Provider Psychiatry & Neurology Child & Adolescent Psychiatry
DX: Z79.899 Other long term (current) drug therapy (principal)
CPT/HCPCS: 80053; 85025

== ENCOUNTER 2022-02-10 10:34 | Inpatient (IN) | payer MEDICARE, MEDICAID, SELFPAY ==
[2022-02-10] VITALS (13 sets, daily range): BP systolic 108–145; BP diastolic 70–87; PULSE 61–100; RESP 16–29; TEMP 36.4–39.3; O2SAT 91–98; BMI 34.9; BMI 29.2
--- NOTE | 2022-02-10 10:57 | RAD_ITS ---
STUDY: X-RAY CHEST REASON FOR EXAM: Male, 56 years old. Cough/sob TECHNIQUE: Single AP portable view of the chest. COMPARISON: None. FINDINGS: EKG electrodes are seen. Findings suggestive of vascular congestion and mild degree of CHF. Bibasilar atelectasis. There is no demonstrated pleural abnormality. There is mild cardiac enlargement. Normal mediastinum and rosa. Normal visualized pulmonary arteries. Normal visualized aortic arch and descending thoracic aorta. Normal visualized thoracic spine. Normal visualized ribs, clavicles, and shoulders. There is no demonstrated abnormality of the visualized soft tissue structures of the upper abdomen. RAD/Chest 1 View (Portable) IMPRESSION: Mild cardiomegaly. Findings suggestive of a mild degree of CHF with superimposed bibasilar atelectasis. Electronically Signed: Nelson Dodd MD at 13:11 EDT ,
--- NOTE | 2022-02-10 10:57 | EKG12_ITS ---
Test Reason : SOB Blood Pressure : / mmHG Vent. Rate : 066 BPM Atrial Rate : 066 BPM P-R Int : 150 ms QRS Dur : 142 ms QT Int : 422 ms P-R-T Axes : 022 -28 017 degrees QTc Int : 442 ms Poor data quality, interpretation may be adversely affected Normal sinus rhythm Right bundle branch block T wave abnormality, consider lateral ischemia Abnormal ECG Confirmed by TORO MAYA, SHEA ([id number]), news videotape editor ELEI PARRA ([id number]) on 02/13/2022 10:01:59 A M Referred By: JODY Confirmed By:LINCOLN ENGEL MD
--- NOTE | 2022-02-10 10:59 | ED.VIS.DYS ---
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 He is not on oxygen. [facility] staff accompanies him here, they state that he was fine yesterday and was fine at workshop yesterday. There has been no vomiting or choking on food or drink that there have witnessed or are aware of. There are no sick contacts known in the correction or at the workshop. He has been vaccinated against COVID previously. No travel out of the area recently. Patient denies any abdominal pain or GI symptoms or chest pain. He states he is breathing better now that he is resting. PFSH PFSH Home Medications clozapine 100 mg PO DAILY 07/24/16 [History Last Taken Unknown] clozapine 200 mg PO QHS 07/24/16 [History Last Taken Unknown] divalproex 125 mg PO QHS 07/24/16 [History Last Taken Unknown] divalproex 250 mg PO BIDCM 07/24/16 [History Last Taken Unknown] fluticasone propionate 1 spray NASAL DAILY 07/24/16 [History Last Taken Unknown] peg 400-propylene glycol (PF) [Systane 0.3-0.4% Eye Drops] 1 ea OP BID PRN 07/24/16 [History Last Taken Unknown] polyethylene glycol 3350 17 g PO DAILY 07/24/16 [History Last Taken Unknown] ropinirole [Requip] 4 mg PO TID 07/24/16 [History Last Taken Unknown] solifenacin [Vesicare] 10 mg PO DAILY 07/24/16 [History Last Taken Unknown] clindamycin HCl 300 mg PO 4X/DAY #80 cap 07/08/19 [Rx Last Taken Unknown] Allergy/AdvReac Type Severity Reaction Status Date / Time No Known Allergies Allergy Verified 07/08/19 19:01 Social History Smoking Status: Never smoker ROS ROS ED Constitutional Constitutional ED: Reports fatigue; Denies fever(s) Eyes Eyes: Denies change in vision or diplopia ENT ENT ED: Denies ear pain or sore throat Cardiovascular Cardiovascular: Denies chest pain or palpitations Respiratory/Chest Respiratory/Chest: Reports as per HPI, cough and dyspnea Gastrointestinal Gastrointestinal: Denies abdominal pain, diarrhea, nausea or vomiting Genitourinary Genitourinary ED: Denies dysuria or hematuria Musculoskeletal Musculoskeletal: Denies back pain or neck pain Integumentary Denies abscess or rash Neurologic Neurologic: Denies headache(s), paresthesias or weakness EXAM Physical Exam Const Vital Signs: 02/10/22 10:38 02/10/22 11:19 02/10/22 11:47 Temperature 97.6 F L Temperature Source Temporal Pulse Rate 67 65 63 Respiratory Rate 24 H 22 H 29 H Respiratory Effort Short of Breath Labored Respiratory Pattern Normal Tachypnea Blood Pressure 122/75 H 135/79 H Blood Pressure Mean 90 97 Pulse Ox 91 91 Oxygen Delivery Method Room Air Room Air 02/10/22 13:00 02/10/22 13:09 Temperature 98.3 F 98.3 F Temperature Source Oral Oral Pulse Rate 61 Respiratory Rate 21 H Respiratory Effort Respiratory Pattern Blood Pressure 134/79 H Blood Pressure Mean 97 Pulse Ox 93 Oxygen Delivery Method Room Air Positive well nourished and well developed Constitutional Narrative: Ill-appearing but in no distress, appears malaised General Appearance ED: well developed and NAD HEENT Reports moist mucous membranes normocephalic and atraumatic Eyes PERRL and EOMs intact bilaterally Neck full ROM, no lymphadenopathy, supple and no meningeal signs Resp Resp Narrative: No respiratory distress. Audible upper airway sounds with clear posterior oropharynx, appear to be transmitting to lungs, more prominent throughout the right. Trachea midline. Able to talk, but limited more to fatigue than tachypnea. Cardio regular rate, regular rhythm, no murmurs and no JVD GI non-tender and non-distended Auscultation: normoactive bowel sounds Palpation: soft Back/Spine no CVA tenderness General Back: other FROM Extremity normal to inspection General Extremety ED: Negative for edema, pulses abnormal or tenderness General Extremity: Negative for edema or pulses abnormal Neuro CN's II-XII intact bilaterally and no sensory deficits noted Neuro Narrative: At baseline mental status per staff except for fatigue Sensorium / Orientation: awake and alert Motor Exam: strength 5/5 throughout Skin no rashes or lesions noted and no wounds MDM MDM MDM Narrative Medical decision making narrative: Concern here is for pneumonia. COVID and influenza were sent, they are negative. On my interpretation 1 view chest x-ray appears to show bibasilar infiltrates. Radiology read this as CHF, certainly I can see why because it is bibasilar but his BNP is well within normal limits and he is a leukocytosis, he does not febrile but I am treating this as infection until proven otherwise. He is borderline hypoxemic but appears ill so given his baseline mental status and fact that he is in an a correction and not a medical facility I think admitting him would be best. Additionally, his urine appears very infected this was sent for culture. His lactate is within normal limits. Vital signs have remained stable here in the emergency department. We did give him an albuterol aerosol treatment which helped a little with regards to his dyspnea and tachypnea that was mild to begin with. Lab Data Attestation: I reviewed the patient's lab results. Labs: Laboratory Results - last 24 hr 02/10/22 02/10/22 02/10/22 11:10 11:10 11:10 WBC 14.1 H RBC 4.97 Hgb 15.0 Hct 44.2 MCV 88.9 MCH 30.2 MCHC 33.9 RDW Std Deviation 44.1 H RDW Coeff of Carlos 13.6 Plt Count 141 L MPV 11.3 Immature Gran % (Auto) 0.500 Neut % (Auto) 84.2 H Lymph % (Auto) 3.9 L [place] % (Auto) 11.2 H Eos % (Auto) 0.0 Baso % (Auto) 0.2 Absolute Neuts (auto) 11.9 H Absolute Lymphs (auto) 0.55 L Nucleated RBC % 0 Diff Path Review January foll PT 13.9 INR 1.1 APTT 32.7 Sodium 140 Potassium 3.8 Chloride 103 Carbon Dioxide 31.0 Anion Gap 6 BUN 18 Creatinine 1.04 Estim Creat Clear Calc 89.63 Est GFR (MDRD) Af Amer 95 Est GFR (MDRD) Non-Af 78 BUN/Creatinine Ratio 17.3 Glucose 122 H Lactic Acid Calcium 9.2 Total Bilirubin 0.60 AST 14 L ALT 20 Alkaline Phosphatase 131 H Troponin I High Sens 9 B-Natriuretic Peptide Total Protein 7.8 Albumin 3.8 Globulin 4.0 Albumin/Globulin Ratio 1.0 Urine Color Urine Clarity Urine pH Ur Specific [place] Urine Protein Urine Glucose (UA) Urine Ketones Urine Occult Blood Urine Nitrite Urine Bilirubin Urine Urobilinogen Ur Leukocyte Esterase Urine RBC Urine WBC Ur Squamous Epith Cells Urine Bacteria Urine Mucus 02/10/22 02/10/22 02/10/22 11:10 11:10 12:30 WBC RBC Hgb Hct MCV MCH MCHC RDW Std Deviation RDW Coeff of [place] Plt Count MPV Immature Gran % (Auto) Neut % (Auto) Lymph % (Auto) [place] % (Auto) Eos % (Auto) Baso % (Auto) Absolute Neuts (auto) Absolute Lymphs (auto) Nucleated RBC % Diff Path Review PT INR APTT Sodium Potassium Chloride Carbon Dioxide Anion Gap BUN Creatinine Estim Creat Clear Calc Est GFR (MDRD) Af Amer Est GFR (MDRD) Non-Af BUN/Creatinine Ratio Glucose Lactic Acid 1.4 Calcium Total Bilirubin AST ALT Alkaline Phosphatase Troponin I High Sens B-Natriuretic Peptide 57.3 Total Protein Albumin Globulin Albumin/Globulin Ratio Urine Color Yellow Urine Clarity Cloudy Urine pH 6.0 Ur Specific [place] 1.020 Urine Protein 100 H Urine Glucose (UA) Normal Urine Ketones 5 H Urine Occult Blood 150 H Urine Nitrite Negative Urine Bilirubin 1 H Urine Urobilinogen 1 H Ur Leukocyte Esterase 500 H Urine RBC 25-50 SEEN Urine WBC 10-25 SEEN Ur Squamous Epith Cells 0-5 SEEN Urine Bacteria 3+ Urine Mucus 0 SEEN Radiography Chest X-Ray - ED: 1 View, Read by ED Physician, Right Infiltrate and Left Infiltrate Diagnostic Testing: Clinical Impression(s) from Imaging Studies Chest X-Ray 02/10/22 10:57 IMPRESSION: Mild cardiomegaly. Findings suggestive of a mild degree of CHF with superimposed bibasilar atelectasis. Electronically Signed: Nelson Dodd MD at 13:11 EDT , EKG Initial EKG: Attestation: I personally reviewed and interpreted this EKG as follows: Interpretation: Sinus Rhythm, No Acute Injury Pattern and RBBB Prior EKG tracings: not available for review (But description shows incomplete RBBB) Discharge Plan Dx/Rx/DC Orders Clinical Impression: Acute UTI, Sepsis, Pneumonia Disposition Disposition: Acute Care Hospital [facility]
[2022-02-10] MEDS: Albuterol 2.5 MG/3 ML VIAL.NEB. INHALATION (11:16)
[2022-02-10 11:36] LABS: Absolute Lymphocyte Count 0.55 X10^3/uL (0.83-4.51); Absolute Neutrophil Count 11.9 X10^3/uL (2.0-7.7); Basophil# 0.03 X10^3/uL; Basophil% 0.2 % (0-1); Hematocrit 44.2 % (40-54); Lymphocyte # 0.55 X10^3/ul (0.83-4.51); Lymphocyte % 3.9 % (19-41); Mean Corp Hgb Conc 33.9 g/dL (32-36); Mean Corpuscular Hgb 30.2 pg (27.0-32.0); Mean Corpuscular Volume 88.9 fL (80-94); Mean Platelet Vol. 11.3 fl (6.2-12.0); Monocyte# 1.59 X10^3/uL; Monocyte% 11.2 % (0-10); NRBC Flagged by Analyzer 0 % (0-5); Neutrophil % 84.2 % (47-70); POSITIVE DIFFERENTIAL YES; Platelet Count 141 K/mm3 (150-450); RBC Distribution Width CV 13.6 % (11.6-14.6); RBC Distribution Width SD 44.1 fl (35.1-43.9); Red Blood Count 4.97 M/mm3 (4.6-6.2); White Blood Count 14.1 K/mm3 (4.4-11.0)
[2022-02-10 11:37] LABS: Differential Indicated SCAN CRITERIA MET
[2022-02-10 11:46] LABS: International Normalized Ratio 1.1; Partial Thromboplast Time 32.7 Seconds (24.1-36.2); Prothrombin Time (Protime)PT. 13.9 SECONDS (11.7-14.9)
[2022-02-10 11:56] LABS: AST(SGOT) 14 U/L (15-37); Alanine Aminotransfer ALT/SGPT 20 U/L (16-61); Albumin, Serum 3.8 g/dL (3.2-5.0); Alkaline Phosphatase 131 U/L (45-117); Anion Gap 6 (5-15); BUN 18 mg/dL (7-18); BUN/Creat Ratio 17.3 RATIO (10-20); Calcium,Total 9.2 mg/dL (8.5-10.1); Chloride 103 mmol/L (98-107); Creatinine, Serum 1.04 mg/dL (0.70-1.30); EST Glomerular Filtration Rate 78 mL/min (>60); Est Glom Filt Rate - Afr Amer 95 mL/min (>60); Estimated Creatinine Clearance 89.63 ml/min; Glucose 122 mg/dL (74-106); Potassium 3.8 mmol/L (3.5-5.1); Protein, Total 7.8 g/dL (6.4-8.2); Sodium Level 140 mmol/L (136-145); Troponin-I HS 9 pg/mL (3.0-78.0)
[2022-02-10 12:11] LABS: Lactic Acid 1.4 mmol/L (0.4-1.9)
[2022-02-10 12:25] LABS: BNP,B-Type NATRIURETIC PEPTIDE 57.3 pg/mL (0-100)
[2022-02-10 12:42] LABS: Mucous, Urine 0 SEEN /hpf (<or=2+)
[2022-02-10 12:49] LABS: Color, Urine Yellow (Yellow); Glucose, Dipstick Normal (Normal); Ketone-Dipstick 5 mg/dl (Negative); Leukocyte Esterase-Dipstick 500 /ul (Negative); Nitrite-Dipstick Negative (Negative); Occult Blood-Urine 150 /ul (Negative); Protein-Dipstick 100 mg/dl (Negative); Urine Clarity Cloudy (Clear); Urine Urobilinogen 1 mg/dl (Normal)
[2022-02-10 12:58] LABS: Urine Bilirubin Dipstick 1 mg/dL (Negative)
[2022-02-10 13:00] LABS: Red Blood Cells-Urine 25-50 SEEN /hpf (0-5); White Blood Cells 10-25 SEEN /hpf (0-5)
[2022-02-10 13:01] LABS: Bacteria 3+ /hpf (None Seen); Squamous Epithelial Cells - UA 0-5 SEEN /hpf (0-5)
--- NOTE | 2022-02-10 13:40 | HP.PCM.HOS_ITS ---
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 Staff at the facility noted he was fine the day prior and seemed to be breathing with ease. They note that he was more alert and awake today prior also. He has had no recent fever, chills, nausea, emesis, difficulty swallowing food or drink and no recent ill contacts. Patient is back and vaccinated against COVID. Work-up in the ED occluded T97.6, heart rate 67, BP 122/75, respiratory rate range 21-29, 91 to 93% on room air, CBC with WC 14.1, hemoglobin 15, platelet 141 with left shift and lymphopenia, unremarkable coags, CMP not marked appearing aside glucose 122, alk phos 131, lactic acid 1.4, BNP 57.3, urinalysis with evidence of dehydration with specific cavity 1.020, ketone 5, occult blood 150, negative nitrite, leukocyte esterase 500, urine RBCs 25-50, urine WBCs 10-25, 3+ urine bacteria, chest x-ray with cardiomegaly with findings suspicious for mild CHF with superimposed bibasilar atelectasis, EKG with SR with RBBB without acute evidence of ischemia, rapid COVID and influenza negative. In the ED patient administered albuterol, rocephin and azithromycin. In the ED upon evaluation patient is seated upright, talking with his mother, eating a sandwich without issue with no significant coughing and oxygenation at 94%. REPLACED BY [facility] Medical History (Updated 02/10/22 @ 15:[address] Lala Carpenter MD) Autism Cognitive impairment Non-smoker Seizure disorder Seizures Home Medications clozapine 100 mg PO DAILY 07/24/16 [History Last Taken 02/10/22] clozapine 200 mg PO QHS 07/24/16 [History Last Taken 02/09/22] divalproex 125 mg PO QHS 07/24/16 [History Last Taken 02/09/22] divalproex 250 mg PO BIDCM 07/24/16 [History Last Taken 02/10/22] fluticasone propionate 1 spray NASAL DAILY 07/24/16 [History Last Taken 02/10/22] peg 400-propylene glycol (PF) [Systane 0.3-0.4% Eye Drops] 1 ea OP BID PRN 1 [History Last Taken Unknown] polyethylene glycol 3350 17 g PO DAILY 07/24/16 [History Last Taken 02/10/22] docusate sodium 200 mg PO BID 02/10/22 [History Last Taken 02/10/22] doxazosin 4 mg PO QHS 02/10/22 [History Last Taken 02/09/22] erythromycin 1 applic RIGHT EYE QHS 02/10/22 [History Last Taken 02/09/22] mirabegron [Myrbetriq] 25 mg PO DAILY 02/10/22 [History Last Taken 02/10/22] Allergy/AdvReac Type Severity Reaction Status Date / Time No Known Allergies Allergy Verified 07/08/19 19:01 Family History (Updated 02/10/22 @ 14:[address] Lala Carpenter MD) Mother Seizures COPD (chronic obstructive pulmonary disease) Father Glaucoma Surgical History (Updated 02/10/22 @ 14:[address] Lala Carpenter MD) History of lingual frenulectomy History of rectal surgery Social History (Updated 02/10/22 @ 13:[address] Lala Carpenter MD) housing: other details: jail. Smoking Status: Never smoker alcohol intake: never substance use type: does not use ROS ROS Narrative Admission Review of Systems: CONSTITUTIONAL: No weight loss, fever, chills, + weakness or fatigue. HEENT: Eyes: No visual loss, blurred vision, double vision or yellow sclerae. Ears, Nose, Throat: No hearing loss, sneezing, congestion, runny nose or sore throat. SKIN: No rash or itching, lesions, wounds. CARDIOVASCULAR: No chest pain, chest pressure or chest discomfort, palpitations, edema, orthopnea, syncopal events. RESPIRATORY: + Mild cough, moist, mild dyspnea, No wheezing, hemoptysis. GASTROINTESTINAL: + Mild nausea, chronic constipation, No anorexia, vomiting or diarrhea, abdominal pain, melena, BRBPR. GENITOURINARY: No dysuria, frequency, urgency or retention. NEUROLOGICAL: + Increased fatigue, lethargy per facility report. Hx seizures. No headache, dizziness, syncope, paralysis, ataxia, numbness or tingling in the extremities, focal weakness, change in bowel or bladder control. MUSCULOSKELETAL: No muscle, back pain, joint pain or stiffness. HEMATOLOGIC: No anemia, bleeding or bruising. LYMPHATICS: No enlarged nodes. No history of splenectomy. PSYCHIATRIC: No history of depression or anxiety. ENDOCRINOLOGIC: No reports of sweating, cold or heat intolerance. No polyuria or polydipsia. ALLERGIES: No history of asthma, hives, eczema or rhinitis. Vital Signs Vital Signs Vital Signs: 02/10/22 10:38 02/10/22 11:19 02/10/22 11:47 Temperature 97.6 F L Temperature Source Temporal Pulse Rate 67 65 63 Respiratory Rate 24 H 22 H 29 H Respiratory Effort Short of Breath Labored Respiratory Pattern Normal Tachypnea Blood Pressure 122/75 H 135/79 H Blood Pressure Mean 90 97 Pulse Ox 91 91 Oxygen Delivery Method Room Air Room Air 02/10/22 13:00 02/10/22 13:09 Temperature 98.3 F 98.3 F Temperature Source Oral Oral Pulse Rate 61 Respiratory Rate 21 H Respiratory Effort Respiratory Pattern Blood Pressure 134/79 H Blood Pressure Mean 97 Pulse Ox 93 Oxygen Delivery Method Room Air Weight Weight: 265 lb Body Mass Index (BMI) 34.9 Physical Exam Narrative Physical Examination: General: Awake, alert, oriented to self, place, and recent events, mother present and note he is currently baseline, less fatigued than prior, not lethargic currently, eating, remains cooperative, seated upright in the ED bed in no apparent distress. Skin: Normal color, normal turgor, no icterus, no cyanosis. HEENT: AT/NC, EOMI, PERRLA, mildly dry MM, no carotid bruits or JVD noted. Lungs: Diminished, > bases, moderate effort, no respiratory distress noted, no coughing or moist upper airways sounds noted previously at his facility, no rales, ronchi or wheezing. Heart: Currently regular rate and rhythm; no gallop, rub audible. Abdomen: Soft, obese, NTTP, distended, tympanitic which can be chronic family notes with constipation routinely, hyperactive BS, no obvoius HSM. Extremities: No cyanosis, clubbing, or edema. Neurological: Patient awake, alert, oriented as noted, cognitive function decreased baseline with underlying impairment, autism, currently improved and near baseline intact per family present; pupils equally reactive to light and accommodation, cranial nerves grossly normal, moving all 4 extremities, no focal deficits, strength mildly to moderately globally decreased secondary to acute presentation. Psychiatric: Affect appears mildly fatigued otherise normal, no acute evidence o f depressive or anxiety feelings. Results Lab / Micro Data Result Diagrams: 02/10/22 11:10 02/10/22 11:10 Labs: Laboratory Results - last 24 hr 02/10/22 11:10: WBC 14.1 H, RBC 4.97, Hgb 15.0, Hct 44.2, MCV 88.9, MCH 30.2, MCHC 33.9, RDW Std Deviation 44.1 H, RDW Coeff of [place] 13.6, Plt Count 141 L, MPV 11.3, Immature Gran % (Auto) 0.500, Neut % (Auto) 84.2 H, Lymph % (Auto) 3.9 L, [place] % (Auto) 11.2 H, Eos % (Auto) 0.0, Baso % (Auto) 0.2, Absolute Neuts (auto) 11.9 H, Absolute Lymphs (auto) 0.55 L, Nucleated RBC % 0, Diff Path Review January02/10/22 11:10: PT 13.9, INR 1.1, APTT 32.7 02/10/22 11:10: Sodium 140, Potassium 3.8, Chloride 103, Carbon Dioxide 31.0, Anion Gap 6, BUN 18, Creatinine 1.04, Estim Creat Clear Calc 89.63, Est GFR (MDRD) Af Amer 95, Est GFR (MDRD) Non-Af 78, BUN/Creatinine Ratio 17.3, Glucose 122 H, Calcium 9.2, Total Bilirubin 0.60, AST 14 L, ALT 20, Alkaline Phosphatase 131 H, Troponin I High Sens 9, Total Protein 7.8, Albumin 3.8, Globulin 4.0, Albumin/Globulin Ratio 1.0 02/10/22 11:10: Lactic Acid 1.4 02/10/22 11:10: B-Natriuretic Peptide 57.3 02/10/22 12:30: Urine Color Yellow, Urine Clarity Cloudy, Urine pH 6.0, Ur Specific [place] 1.020, Urine Protein 100 H, Urine Glucose (UA) Normal, Urine Ketones 5 H, Urine Occult Blood 150 H, Urine Nitrite Negative, Urine Bilirubin 1 H, Urine Urobilinogen 1 H, Ur Leukocyte Esterase 500 H, Urine RBC 25-50 SEEN, Urine WBC 10-25 SEEN, Ur Squamous Epith Cells 0-5 SEEN, Urine Bacteria 3+, Urine Mucus 0 SEEN Radiology Impression Chest X-Ray 02/10/22 10:57 IMPRESSION: Mild cardiomegaly. Findings suggestive of a mild degree of CHF with superimposed bibasilar atelectasis. 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 #1. Acute Mild Hypoxia secondary to suspected primarily Acute CAP versus Possible Acute Decompensated CHF, Unclear type WITHOUT SEPSIS present (noted per ED physician but no marked SIRS, no organ dysfunction, no lactic acidosis): Will admit to PCU to be cautious, will maintain on oxygen with wean as tolerated to room air, PRN albuterol, maintained on IV Rocephin and Azithromycin, HOB, IS parameters w/ pending sputum cultures, respiratory panel and urine antigens as well as procalcitonin; however, will at the same time dose x 1 with IV lasix x 1 and obtain cardiac enzyme series, monitor I/Os, obtain TSH and magnesium level, obtain ECHO with repeat CXR in AM and pending results may transition path of care to appropriate interventions. ST consulted. #2. Acute Complicated Urinary Tract Infection: UA upon ED evaluation remarkable, pending UCx, monitor I/Os, continue IV Rocephin w/ transition as able pending sensitivities and speciation. Bld cx x 2 obtained in the ED. #3. Autism w/ Cognitive impairment, associated Seizure disorder: We will continue patient clozapine, divalproex and Requip regimen. #4. Obesity: Weight loss and lifestyle changes encouraged. #5. Chronic constipation: We will initiate bowel regimen. #6. DVT prophylaxis: SCDs, Lovenox. Charges/Coding Visit Charges Inpatient E&M: 17319 Init Hosp L3
[2022-02-10 14:17] LABS: Magnesium 2.1 mg/dL (1.6-2.6)
--- NOTE | 2022-02-10 14:42 | ECHOD_ITS ---
Reason For Study: CHF Procedure This was a 2D Doppler, Color Flow transthoracic echocardiogram. Techncially Difficult study due to patient body habitus and condition. Patient was unable to stay in position or hold still. Exam performed portable in patient room. Left Ventricle The estimated ejection fraction is 60 %. No evidence for diastolic dysfunction. No regional wall motion abnormalities noted. Right Ventricle Normal RV size. Normal systolic function. Atria Normal left atrium. Normal right atrium. No doppler evidence for ASD. Mitral Valve There is no mitral valve stenosis. No mitral valve insufficiency. Tricuspid Valve There is no tricuspid stenosis. Unable to estimate RV systolic pressure due to inadequate jet, pulmonary artery pressure probably normal. Aortic Valve Trisinus/trileaflet aortic valve. There is no aortic stenosis. No aortic valve insufficiency. Pulmonic Valve There is no pulmonic valvular stenosis. No pulmonic valve insufficiency. Great Vessels Normal aortic root. Pericardium/Pleural No pericardial effusion. MMode/2D Measurements & Calculations LVIDd: 4.5 cm IVSd: 1.3 cm LA dimension: 3.8 cm LVIDs: 2.7 cm LVPWd: 1.6 cm FS: 39.7 % Time Measurements MV dec time: 0.25 sec Doppler Measurements & Calculations MV E max santino: 100.4 cm/sec Lat Peak E' Santino: 8.6 cm/sec Med Peak E' Santino: 8.5 cm/sec MV A max santino: 89.5 cm/sec E/E' lat: 11.6 E/E' med: 11.8 MV E/A: 1.1 MV V2 max: 135.8 cm/sec MV P1/2t max santino: 135.8 cm/sec Ao V2 max: 124.0 cm/sec MV max P.4 mmHg MV P1/2t: 61.0 msec Ao max P.2 mmHg MV V2 mean: 66.4 cm/sec MV mean P.2 mmHg MV dec slope: 651.8 cm/sec2 MV V2 VTI: 36.2 cm MVA(P1/2t): 3.6 cm2 LV V1 max: 117.0 cm/sec PA V2 max: 105.0 cm/sec LV V1 max P.5 mmHg ECHO/Echo Complete Interpretation Summary The estimated ejection fraction is 60 %. No evidence for diastolic dysfunction. Ordering Physician: Lala Carpenter Referring Physician: MD Kirt Abe Performed By: Eusebio Lopes RCS
[2022-02-10 15:33] LABS: Troponin-I HS 6 pg/mL (3.0-78.0)
[2022-02-10 15:55] LABS: Procalcitonin 0.85 ng/mL (0.00-0.09)
[2022-02-10] MEDS: Pramipexole Di-HCl 0.5 MG Tablet 1.5 MG PO ×2 (16:58→21:09)
[2022-02-10] MEDS: Divalproex Sodium 250 MG Tablet PO (16:58)
[2022-02-10] MEDS: Furosemide 20 MG/2 ML VIAL IV (17:00)
[2022-02-10 18:18] LABS: Troponin-I HS 9 pg/mL (3.0-78.0)
[2022-02-10] MEDS: Acetaminophen 325 MG Tablet 650 MG PO (18:24)
[2022-02-10] MEDS: Ipratropium/Albuterol Sulfate 3 ML AMPUL.NEB INHALATION (19:30)
--- NOTE | 2022-02-10 19:40 | CPS ---
patient on room air upon RT starting a breathing treatment and O2 sat was 81%. RT placed patient on 3 liters nasal cannula with a new O2 sat of 94%. Patients breath sounds remain coarse post treatment.
[2022-02-10] MEDS: 0.9% Saline Lock 10 ML Syringe IV (21:12)
[2022-02-10] MEDS: Divalproex Sodium 125 MG Tablet PO (21:12)
[2022-02-11] VITALS (15 sets, daily range): BP systolic 109–143; BP diastolic 70–83; PULSE 56–108; RESP 16–32; TEMP 36.4–36.8; O2SAT 84–98
[2022-02-11 05:51] LABS: Absolute Lymphocyte Count 0.62 X10^3/uL (0.83-4.51); Basophil# 0.02 X10^3/uL; Basophil% 0.2 % (0-1); Hematocrit 39.4 % (40-54); Lymphocyte # 0.62 X10^3/ul (0.83-4.51); Lymphocyte % 4.7 % (19-41); Mean Corpuscular Hgb 29.7 pg (27.0-32.0); Monocyte# 1.41 X10^3/uL; Monocyte% 10.7 % (0-10); NRBC Flagged by Analyzer 0 % (0-5); Neutrophil # 11.02 X10^3/uL (2.7-7.7); Neutrophil % 83.6 % (47-70); Platelet Count 133 K/mm3 (150-450); RBC Distribution Width CV 13.8 % (11.6-14.6); RBC Distribution Width SD 45.8 fl (35.1-43.9); Red Blood Count 4.38 M/mm3 (4.6-6.2); White Blood Count 13.2 K/mm3 (4.4-11.0)
--- NOTE | 2022-02-11 05:55 | RAD_ITS ---
INDICATION: Dyspnea, cough EXAMINATION/TECHNIQUE: X-RAY - XR Chest 1 View COMPARISON: 02/10/2022 FINDINGS: LINES/DEVICES: None. LUNGS: Patchy opacities at the right lung base and hazy retrocardiac opacity, similar compared to the prior. MEDIASTINUM AND CARDIOVASCULAR STRUCTURES: Cardiac silhouette not enlarged. Central airways and mediastinal contour are unremarkable. BONES AND SOFT TISSUES: Unremarkable. RAD/Chest 1 View (Portable) IMPRESSION: Bilateral hazy and patchy opacities, similar compared to the prior. Electronically Signed: Jose Galdamez MD at 7:51 EDT ,
[2022-02-11 06:15] LABS: ALB/GLOB Ratio 0.8 RATIO (0.9-2.4); AST(SGOT) 14 U/L (15-37); Alanine Aminotransfer ALT/SGPT 17 U/L (16-61); Alkaline Phosphatase 101 U/L (45-117); Anion Gap 6 (5-15); BUN 28 mg/dL (7-18); Calcium,Total 8.4 mg/dL (8.5-10.1); Chloride 102 mmol/L (98-107); Creatinine, Serum 1.12 mg/dL (0.70-1.30); EST Glomerular Filtration Rate 72 mL/min (>60); Est Glom Filt Rate - Afr Amer 87 mL/min (>60); Estimated Creatinine Clearance 83.23 ml/min; Globulin 3.9 g/dL (2.2-4.2); Glucose 126 mg/dL (74-106); Potassium 3.4 mmol/L (3.5-5.1); Protein, Total 6.9 g/dL (6.4-8.2); Sodium Level 140 mmol/L (136-145); Thyroid Stim Hormone (TSH) 0.56 uIU/mL (0.358-3.74)
[2022-02-11] MEDS: Pramipexole Di-HCl 0.5 MG Tablet 1.5 MG PO ×3 (06:21→21:34)
[2022-02-11] MEDS: Ipratropium/Albuterol Sulfate 3 ML AMPUL.NEB INHALATION ×3 (06:48→19:14)
--- NOTE | 2022-02-11 07:48 | PCM.PN.HOSP ---
Subjective Subjective Follow-up for pneumonia. Objective Data Objective Data Vital Signs: Vital Signs Temp Pulse Resp BP Pulse Ox 97.7 F L 56 L 16 109/70 95 02/11/22 03:00 02/11/22 04:00 02/11/22 03:00 02/11/22 03:00 02/11/22 03:00 Oxygen Flow Rate (L/min) 3 Oxygen Delivery Method Nasal Cannula Weight: 221 lb 5.506 oz Body Mass Index (BMI) 29.2 Intake & Output: Intake and Output for Last 24 Hours 02/09/22 02/10/22 02/11/22 23:59 23:59 23:59 Intake Total 305 / 305 Balance 305 / 305 Lab / Micro Data Result Diagrams: 02/11/22 05:12 02/11/22 05:12 Labs: Laboratory Results - last 24 hr 02/10/22 11:10: WBC 14.1 H, RBC 4.97, Hgb 15.0, Hct 44.2, MCV 88.9, MCH 30.2, MCHC 33.9, RDW Std Deviation 44.1 H, RDW Coeff of Carlos 13.6, Plt Count 141 L, MPV 11.3, Immature Gran % (Auto) 0.500, Neut % (Auto) 84.2 H, Lymph % (Auto) 3.9 L, [place] % (Auto) 11.2 H, Eos % (Auto) 0.0, Baso % (Auto) 0.2, Absolute Neuts (auto) 11.9 H, Absolute Lymphs (auto) 0.55 L, Nucleated RBC % 0, Diff Path Review January02/10/22 11:10: PT 13.9, INR 1.1, APTT 32.7 02/10/22 11:10: Sodium 140, Potassium 3.8, Chloride 103, Carbon Dioxide 31.0, Anion Gap 6, BUN 18, Creatinine 1.04, Estim Creat Clear Calc 89.63, Est GFR (MDRD) Af Amer 95, Est GFR (MDRD) Non-Af 78, BUN/Creatinine Ratio 17.3, Glucose 122 H, Calcium 9.2, Total Bilirubin 0.60, AST 14 L, ALT 20, Alkaline Phosphatase 131 H, Troponin I High Sens 9, Total Protein 7.8, Albumin 3.8, Globulin 4.0, Albumin/Globulin Ratio 1.0 02/10/22 11:10: Lactic Acid 1.4 02/10/22 11:10: B-Natriuretic Peptide 57.3 02/10/22 11:10: Magnesium 2.1 02/10/22 12:30: Urine Color Yellow, Urine Clarity Cloudy, Urine pH 6.0, Ur Specific [place] 1.020, Urine Protein 100 H, Urine Glucose (UA) Normal, Urine Ketones 5 H, Urine Occult Blood 150 H, Urine Nitrite Negative, Urine Bilirubin 1 H, Urine Urobilinogen 1 H, Ur Leukocyte Esterase 500 H, Urine RBC 25-50 SEEN, Urine WBC 10-25 SEEN, Ur Squamous Epith Cells 0-5 SEEN, Urine Bacteria 3+, Urine Mucus 0 SEEN 02/10/22 14:35: Procalcitonin 0.85 H 02/10/22 15:00: Troponin I High Sens 6 02/10/22 17:22: Troponin I High Sens 9 02/11/22 05:12: WBC 13.2 H, RBC 4.38 L, Hgb 13.0, Hct 39.4 L, MCV 90.0, MCH 29.7, MCHC 33.0, RDW Std Deviation 45.8 H, RDW Coeff of Carlos 13.8, Plt Count 133 L, MPV 11.0, Immature Gran % (Auto) 0.800, Neut % (Auto) 83.6 H, Lymph % (Auto) 4.7 L, [place] % (Auto) 10.7 H, Eos % (Auto) 0.0, Baso % (Auto) 0.2, Absolute Neuts (auto) 11.0 H, Absolute Lymphs (auto) 0.62 L, Nucleated RBC % 0 02/11/22 05:12: Sodium 140, Potassium 3.4 L, Chloride 102, Carbon Dioxide 32.0, Anion Gap 6, BUN 28 H, Creatinine 1.12, Estim Creat Clear Calc 83.23, Est GFR (MDRD) Af Amer 87, Est GFR (MDRD) Non-Af 72, BUN/Creatinine Ratio 25.0 H, Glucose 126 H, Calcium 8.4 L, Total Bilirubin 0.40, AST 14 L, ALT 17, Alkaline Phosphatase 101, Total Protein 6.9, Albumin 3.0 L, Globulin 3.9, Albumin/Globulin Ratio 0.8 L, TSH 0.56, Free T4 0.90 Micro: Microbiology 02/10/22 12:30 Urine, Clean Catch Legionella Antigen - Final 02/10/22 12:30 Urine, Clean Catch Streptococcus pneumoniae Antigen (M - Final 02/10/22 15:50 Mucosa - Nasopharyngeal Respiratory Panel (PCR) - Final 02/10/22 12:30 Nasal Secretion SARS-CoV-2 & FLU Antigen (Rapid) - Final Radiography Diagnostic Testing: Radiology Impression Chest X-Ray 02/10/22 10:57 IMPRESSION: Mild cardiomegaly. Findings suggestive of a mild degree of CHF with superimposed bibasilar atelectasis. Physical Exam Narrative Patient with history of autism with cognitive impairment lives in [facility] was found to be tired with wet cough dyspnea. No obvious coughing or choking or aspiration but patient can aspirate with own saliva. No recent fever or chills, vomiting difficulty swallowing. Physical exam General: Awake, noncommunicative. In comprehensive sound/words, wet cough. HEENT: Right eye palpebral fissure small. Atraumatic, PERRLA, EOMI, Normocephalic Oral: No Gingival or Mucosal Lesions/ Ulcerations Neck: Supple, No JVD, Negative Carotid Bruits Lungs: Air entry diminished in bilateral lung bases. Bibasilar coarse crepitations. Cardiovascular: Regular rate, Regular Rhythm, Normal S1, Normal S2, No murmurs Abdomen: Bowel Sounds Present, Soft, Non Tender, Non-Distended : No renal angle tenderness. No suprapubic tenderness. Extremities: No edema, Capillary Refill Less than 3 Seconds Skin: No rashes, No breakdown Musculoskeletal: No Tenderness to Palpation of Joints or Extremities Neurological: Cranial nerves II-XII grossly intact, DTR 2+/4 and Symmetrical, Neuro grossly intact Psych/Mental Status: Normal Affect, Appropriate. Assessment & Plan Assessment/Plan (1) Acute UTI: (2) Pneumonia: QUALIFIERS: Laterality: bilateral Lung location: lower lobe of lung Pneumonia type: due to unspecified organism Qualified Code(s): J18.9 - Pneumonia, unspecified organism PLAN: The patient is a 56 y/o M living [facility] a [facility] w/ PMHx: Autism, Seizure disorder, Cognitive impairment who presents to the [facility] ED on 02/10/22 with history of worsening dyspnea, worse with exertion with moist cough with increased fatigue and malaise noted to his workshop on day of presentation with pulse oximeter at their facility 90% prompting ED evaluation. #1. Suspicion of bilateral basilar pneumonia/atelectasis or acute decompensated heart failure: Urinary antigens are negative. Respiratory panel negative. Rapid SARS-CoV-2 antigen and flu antigen negative. Chest x-ray individually reviewed and shows bibasilar atelectasis with hilar involvement suggestive of mild pulmonary congestion. Patient had furosemide 20 mg IV in the ED. the patient was given ceftriaxone and Zithromax. As there is risk of aspiration, ceftriaxone changed to Unasyn. Repeat chest x-ray shows improvement in hilar congestion. Repeat one 20 mg IV Lasix. 2D echo was done and reported EF 60% no evidence of diastolic dysfunction. No significant valvular abnormality. #2. Acute Complicated Urinary Tract Infection: UA shows squamous epithelial cells 0-5, WC 10-25 RBC 25-50, LE 500, nitrite negative. Follow-up urine culture pending sensitivity. Blood cultures x2 pending. On IV antibiotic. 02/11: UA suggestive of pyuria. #3. Autism with cognitive impairment, associated Seizure disorder: continue patient clozapine, divalproex and Requip regimen. #4. Obesity: Weight loss and lifestyle changes encouraged. #5. Chronic constipation:l initiate bowel regimen. #6. DVT prophylaxis: SCDs, Lovenox. Charges/Coding Visit Charges Inpatient E&M: 85885 Subs Hosp L2
[2022-02-11] MEDS: Furosemide 20 MG/2 ML VIAL IV (08:03)
[2022-02-11] MEDS: Enoxaparin 40 MG/0.4 ML Syringe SC (08:04)
[2022-02-11] MEDS: Divalproex Sodium 250 MG Tablet PO ×2 (08:04→17:30)
[2022-02-11] MEDS: Polyethylene Glycol 3350 17 GM PACKET PO (08:05)
[2022-02-11] MEDS: Tolterodine Tartrate 4 MG CAP.SA PO (08:07)
[2022-02-11] MEDS: Fluticasone 0.05% 1 SPRAY NASAL.SRY NASAL (08:08)
[2022-02-11] MEDS: Potassium Chloride Oral Tablet 20 MEQ 40 MEQ PO (11:02)
--- NOTE | 2022-02-11 13:34 | CASEMGMT ---
Social Work SW met w/pt and pt's mother Merna in room. Merna confirms that she and pt's Jimi are pt's guardians. Pt's mother brought up doing a living will for pt, asked if it's possible to do this. TRACE explained if pt has a guardian he cannot complete a living will. SW explained that she and pt's father would be the ones to make these decisions for pt. SW asked if she would be able to speak w/pt about his wishes, she does not think he would understand this, and does understand that she would need to make these decisions for pt in the even they are needed. Merna states that normally pt furniture walks at the prison or uses a walker. She states pt has been so week the last few days. She does prefer pt to return to the prison at discharge if possible. SW reviewed pt's PT notes w/pt's mother, as per mother this is about how he normally moves. TRACE inquired if the prison would be able to accommodate oxygen should pt need it, she states she does not know. She states that Abi Galvan is pt's continuous pillowcase cutter, and this is who we would need to check with in regard to this. TRACE did give pt's mother a list of [facility]ci facilities in pt's preferred geographic area, complete with quality and resource use data, in event pt would need this. TRACE also gave her the SW on Sunday's name and number to follow up. It is anticipated pt will be here through the weekend, SW to follow up Sunday w/pt's mother and pt's continuous pillowcase cutter for most appropriate discharge plan. MONIKA Garcia
[2022-02-11 19:23] LABS: Magnesium 2.4 mg/dL (1.6-2.6)
[2022-02-11 21:05] LABS: Allen Test Positive; Base Excess 4 mmol/L (-2 to +2); Bicarbonate 29.6 mmol/L (22-26); Blood Gas Specimen Type ART; O2 Delivery Device Cannula; PO2 84 mmHG (75-100); SITE R Radial; SO2 96 % (95-99); Total Carbon Dioxide 31 mmol/L; pCO2 51.3 mmHg (35-45); pH 7.37 (7.35-7.45)
[2022-02-11] MEDS: Divalproex Sodium 125 MG Tablet PO (21:34)
[2022-02-12] VITALS (18 sets, daily range): BP systolic 132–147; BP diastolic 69–84; PULSE 69–99; RESP 18–30; TEMP 36.1–37.2; O2SAT 89–99
[2022-02-12] MEDS: Pramipexole Di-HCl 0.5 MG Tablet 1.5 MG PO ×2 (05:22→23:33)
[2022-02-12] MEDS: Ipratropium/Albuterol Sulfate 3 ML AMPUL.NEB INHALATION ×2 (06:55→12:36)
[2022-02-12 07:43] LABS: Absolute Lymphocyte Count 0.23 X10^3/uL (0.83-4.51); Basophil# 0.01 X10^3/uL; Basophil% 0.2 % (0-1); Hematocrit 39.3 % (40-54); Lymphocyte # 0.23 X10^3/ul (0.83-4.51); Lymphocyte % 4.6 % (19-41); Mean Corp Hgb Conc 33.1 g/dL (32-36); Mean Corpuscular Volume 90.6 fL (80-94); Mean Platelet Vol. 10.8 fl (6.2-12.0); Monocyte# 0.67 X10^3/uL; Monocyte% 13.5 % (0-10); NRBC Flagged by Analyzer 0 % (0-5); Neutrophil % 80.5 % (47-70); POSITIVE DIFFERENTIAL YES; Platelet Count 141 K/mm3 (150-450); RBC Distribution Width CV 13.7 % (11.6-14.6); RBC Distribution Width SD 45.9 fl (35.1-43.9); Red Blood Count 4.34 M/mm3 (4.6-6.2)
[2022-02-12 07:45] LABS: Differential Indicated SCAN CRITERIA MET
--- NOTE | 2022-02-12 07:53 | PN.HOSP_ITS ---
Subjective Subjective Seen and examined. As per the nursing staff in the evening of 02/11/2022, patient had involuntary movement, drowsy of upper extremities. Patient on clozapine 100 mg daily a.m. and 200 mg nightly. 100 mg evening dose was given as patient was more lethargic. As per nursing staff, it was not like a tonic-clonic rhythmic seizure movement Patient is still has copious oral secretions not able to bring up. His speech therapist following. Last BM 02/10. I talked to the patient's guardian her mother Mrs. Merna Espinoza, Guardian of father and patient's brother who is Alexis. We discussed about his past medical history, hospital course, diagnosis labs and imaging. His father said patient will follow with mild cognitive impairment and autism. He had severe pneumonia in the past. He has severe constipation. Patient is also overweight BMI 29.3 kg per metered square Objective Data Objective Data Vital Signs: Vital Signs Temp Pulse Resp BP Pulse Ox 96.9 F L 85 18 132/74 H 96 02/12/22 04:00 02/12/22 04:00 02/12/22 04:00 02/12/22 04:00 02/12/22 04:00 Oxygen Flow Rate (L/min) 6 Oxygen Delivery Method Nasal Cannula Weight: 222 lb 7.143 oz Body Mass Index (BMI) 29.2 Intake & Output: Intake and Output for Last 24 Hours 02/10/22 02/11/22 02/12/22 23:59 23:59 23:59 Intake Total 305 / 305 479 / 479 224 / 224 Output Total 400 / 400 Balance 305 / 305 79 / 79 224 / 224 Lab / Micro Data Result Diagrams: 02/12/22 07:25 02/12/22 07:25 Labs: Laboratory Results - last 24 hr 02/11/22 18:57: Phosphorus 3.0, Magnesium 2.4 02/11/22 21:00: Ammonia 34.0 H 02/12/22 07:25: WBC 5.0, RBC 4.34 L, Hgb 13.0, Hct 39.3 L, MCV 90.6, MCH 30.0, MCHC 33.1, RDW Std Deviation 45.9 H, RDW Coeff of Carlos 13.7, Plt Count 141 L, MPV 10.8, Immature Gran % (Auto) 1.200 H, Neut % (Auto) 80.5 H, Lymph % (Auto) 4.6 L , [place] % (Auto) 13.5 H, Eos % (Auto) 0.0, Baso % (Auto) 0.2, Absolute Neuts (auto) 4.0, Absolute Lymphs (auto) 0.23 L, Nucleated RBC % 0 Micro: Microbiology 02/10/22 12:30 Urine Catheter - Catheter Urine Culture - Final Presumptive E. coli 02/10/22 12:30 Urine, Clean Catch Legionella Antigen - Final 02/10/22 12:30 Urine, Clean Catch Streptococcus pneumoniae Antigen (M - Final 02/10/22 15:50 Mucosa - Nasopharyngeal Respiratory Panel (PCR) - Final 02/10/22 12:30 Nasal Secretion SARS-CoV-2 & FLU Antigen (Rapid) - Final ABG Data ABG results: ABG 02/11/22 21:00 Specimen Type ART Sample Site R Radial pH 7.37 Bicarbonate Actual 29.6 H Total CO2 31 Base Excess 4 H O2 Saturation 96 ABG pCO2 51.3 H ABG pO2 84 [place] Test Positive O2 Delivery Device Cannula Liter Flow 3.0 Radiography Diagnostic Testing: Radiology Impression Echocardiogram 02/10/22 14:42 Interpretation Summary The estimated ejection fraction is 60 %. No evidence for diastolic dysfunction. Ordering Physician: Lala Carpenter Referring Physician: MD Kirt Abe Performed By: Eusebio Lopes RCS Physical Exam Narrative Patient with history of autism with cognitive impairment [facility] was found to be tired with wet cough dyspnea. Patient has copious oral secretions. Patient had involuntary movement yesterday Physical exam General: Lethargy, incomprehensive sound/words, wet cough. HEENT: Eyes closed. Atraumatic, PERRLA, EOMI, Normocephalic Oral: Not able to control oral secretions. No Gingival or Mucosal Lesions/ Ulcerations Neck: Supple, No JVD, Negative Carotid Bruits Lungs: Air entry diminished in bilateral lung bases. Bibasilar coarse crepitations. On 5 L of oxygen Cardiovascular: Regular rate, Regular Rhythm, Normal S1, Normal S2, No murmurs Abdomen: Bowel Sounds Present, Soft, Non Tender, Non-Distended : No renal angle tenderness. No suprapubic tenderness. Extremities: No edema, Capillary Refill Less than 3 Seconds Skin: No rashes, No breakdown Musculoskeletal: Bilateral lower extremity pitting edema. No Tenderness to Palpation of Joints or Extremities Neurological: DTR 2/4 and Symmetrical, detailed neuro exam unobtainable Psych/Mental Status: Lethargic, obtunded Assessment & Plan Assessment/Plan (1) Acute UTI: (2) Pneumonia: QUALIFIERS: Laterality: bilateral Lung location: lower lobe of lung Pneumonia type: due to unspecified organism Qualified Code(s): J18.9 - Pneumonia, unspecified organism PLAN: The patient is a 56 y/o M living in a [facility] w/ PMHx: Autism, Seizure disorder, Cognitive impairment who presents to the [facility] ED on 02/10/22 w ith history of worsening dyspnea, worse with exertion with moist cough with increased fatigue and malaise noted to his workshop on day of presentation with pulse oximeter at their facility 90% prompting ED evaluation. #1. Suspicion of bilateral basilar pneumonia/atelectasis or acute decompensated heart failure: Urinary antigens are negative. Respiratory panel negative. Rapid SARS-CoV-2 antigen and flu antigen negative. Chest x-ray individually reviewed and shows bibasilar atelectasis with hilar involvement suggestive of mild pulmonary congestion. Patient had furosemide 20 mg IV in the ED. the patient was given ceftriaxone and Zithromax. As there is risk of aspiration, ceftriaxone changed to Unasyn. Repeat chest x-ray shows improvement in hilar congestion. Repeat one 20 mg IV Lasix. 2D echo was done and reported EF 60% no evidence of diastolic dysfunction. No significant valvular abnormality. 02/12: Patient has copious oral secretion, having difficulty to clear it. Oxygenation requirement increased to 5 L. Patient was made n.p.o. and speech therapist to see. Medications are given through applesauce. After prolonged discussion with the patient's mother, and father separately and together and brother who is physician in [place] on the phone. They all agreed for cons ervative management with IV fluid, antibiotics, oral suctions. His physician were suggested the patient was on Cogentin before but is not showing in the medications. Said Cogentin works for oral secretions for him. Cogentin 1 mg IV twice daily started. Patient had involuntary movement last Inegy controlled with clozapine. Valproic acid 47 less than lower limit of normal. Patient having active seizure therefore do not think needs increase. #2. Acute Complicated Urinary Tract Infection: UA shows squamous epithelial cells 0-5, WC 10-25 RBC 25-50, LE 500, nitrite negative. Follow-up urine culture pending sensitivity. Blood cultures x2 pending. On IV antibiotic. 02/11: UA suggestive of pyuria. 02/12: Urine culture E. coli more than 100,000 CFU, ESBL negative pansensitive. Continue IV Unasyn. 02/13: Preliminary blood culture shows gram-negative rods. IV antibiotic escalated to Zosyn. Patient on Dulcolax suppository and tapwater enema. #3. Autism with cognitive impairment, associated Seizure disorder: continue patient clozapine, divalproex and Requip regimen. Associated with multiple admissions of pneumonia, constipation and is in the past. #4. Obesity: Weight loss and lifestyle changes encouraged. #5. Chronic constipatio and abdominal distention:n #6. DVT prophylaxis: SCDs, Lovenox. Total time of the visit including total time spent in counseling or coordination of care, (more than 50% of the total time, spent in obtaining medical information from nurses and other ancillary care providers,explaining to the patient about labs, imaging, diagnosis and management), discussion with family members, review of labs and imaging is 45 minutes. Living will/advanced directive/end of life care: Patient does not have living will or advanced directive. Patient has autism and cognitive deficit. Cannot make decision by himself. His mother is guardian and father is coguardian. After talking to mother, father and brother Dr. Espinoza who is an upper cutter machine in [place], came to conclusion of DNRCC arrest with no intubation. Procedures of full code DNRCC arrest and DNR CC discussed. The patient's guardian and coguardian do not want artificial life support incl uding intubation, permanent tube feed, ventilator and/chest compression, central venous catheter, vasopressor and DC shock if needed but he is mother is okay with temporary NG tube insertion suction and medication administration if needed. Total time spent in [id number] encounter in discussion of advanced directive 16 minutes. Charges/Coding Visit Charges Inpatient E&M: 74464 Subs Hosp L3 Procedures Hospitalists Procedures: 50211 Advncd Care Plan 30 Min
[2022-02-12 08:05] LABS: ALB/GLOB Ratio 0.7 RATIO (0.9-2.4); AST(SGOT) 20 U/L (15-37); Alanine Aminotransfer ALT/SGPT 19 U/L (16-61); Alkaline Phosphatase 99 U/L (45-117); Anion Gap 3 (5-15); BUN 31 mg/dL (7-18); BUN/Creat Ratio 33.3 RATIO (10-20); Calcium,Total 8.7 mg/dL (8.5-10.1); Chloride 106 mmol/L (98-107); Creatinine, Serum 0.93 mg/dL (0.70-1.30); EST Glomerular Filtration Rate 89 mL/min (>60); Est Glom Filt Rate - Afr Amer 108 mL/min (>60); Estimated Creatinine Clearance 100.23 ml/min; Globulin 4.1 g/dL (2.2-4.2); Glucose 131 mg/dL (74-106); Potassium 3.9 mmol/L (3.5-5.1); Protein, Total 7.1 g/dL (6.4-8.2); Sodium Level 143 mmol/L (136-145)
[2022-02-12 08:08] LABS: Valproic Acid (Depakene) Level 47 ug/mL (50-100)
[2022-02-12 08:28] LABS: Differential Comment SCANNED
[2022-02-12] MEDS: Enoxaparin 40 MG/0.4 ML Syringe SC (08:40)
[2022-02-12] MEDS: Fluticasone 0.05% 1 SPRAY NASAL.SRY NASAL (08:41)
[2022-02-12] MEDS: Tolterodine Tartrate 4 MG CAP.SA PO (08:42)
[2022-02-12] MEDS: Potassium Chloride Oral Tablet 20 MEQ 40 MEQ PO (08:43)
[2022-02-12] MEDS: Divalproex Sodium 250 MG Tablet PO ×2 (08:44→18:15)
[2022-02-12] MEDS: guaiFENesin 10 ML UDC (200MG/10ML) 20 ML PO ×3 (08:56→23:33)
[2022-02-12] MEDS: Furosemide 20 MG/2 ML VIAL IV (08:57)
--- NOTE | 2022-02-12 09:22 | NURSING ---
Patient's father expressed to this RN that he would prefer patient be placed in a SNF [place] for further care. He would prefer TCU or [facility]. This RN explained that that SW will look into insurance covreage and availability on Sunday and will be in touch with him.
--- NOTE | 2022-02-12 10:35 | RAD_ITS ---
STUDY: X-RAY - ABDOMEN/PELVIS REASON FOR EXAM: Male, 56 years old. Bowel obstruction, pt unable to follow instructions TECHNIQUE: Supine and decubitus views of the abdomen were obtained COMPARISON: None. FINDINGS: Nonspecific gaseous bowel loops and colon. Fecal retention. 3 air is not definitely identified. No abnormal calcifications are seen. Degenerative changes in the visualized lumbar spine. RAD/Abd Inc Decub and/or Erect IMPRESSION: Nonspecific gas pattern. Electronically Signed: Mor Jenkins MD at 11:16 EDT ,
[2022-02-12] MEDS: Bisacodyl 10 MG Suppository RC (12:22)
--- NOTE | 2022-02-12 12:46 | CT_ITS ---
STUDY: CT ABDOMEN AND PELVIS WITH CONTRAST REASON FOR EXAM: Male, 56 years old. ABDOMINAL DISTENSION -- CONSTIPATION, Abnormal x-ray abdomen RADIATION DOSAGE (If Supplied By Facility): CTDIvol = ( 13.23 ) mGy, DLP = ( 1299.74 ) mGycm TECHNIQUE: Transaxial images were obtained from the dome of the diaphragm to the symphysis pubis without oral contrast. IV 100mL Isovue-[id number] was administered. Sagittal and coronal images were reconstructed. Individualized dose optimization techniques were used for this CT. COMPARISON: None. FINDINGS: The visualized lung bases demonstrate bilateral lower lobes. There are bilateral lower lobes lateral right pleural calcifications could be due to previous asbestos exposure. Mild enlargement of the heart. No pericardial effusion is seen. Borderline to mild hepatomegaly. Distended gallbladder without evidence of gallstones. Mild splenomegaly. The spleen measures about 14.5 cm in length. Normal pancreas. 2.6 cm mass in the left adrenal gland could be due to adenoma. Further evaluation with contrast-enhanced of the with washout study or MRI with contrast is recommended. Normal right adrenal gland. Ill-defined hyperdense nodule in the lateral aspect of the right kidney measuring about 1.2 cm could represent solid mass. Normal left kidney. Normal visualized stomach. Normal caliber small bowel loops. Fecal retention throughout the colon concerning for constipation and fecal impaction. No evidence of acute diverticulitis. There is non-visualization of the appendix. Atherosclerotic calcifications of the abdominal aorta without evidence of aneurysm. Normal inferior vena cava. Normal retroperitoneum. Normal urinary bladder. Prostatic calcifications. Normal abdominal wall. There are diffuse degenerative changes of the visualized lumbar spine. CT/Abdomen/Pelvis W IV Cont ONLY IMPRESSION: 1. Mild hepatosplenomegaly. 2. 2.6 cm left adrenal mass could be due to adenoma. Further evaluation with contrast-enhanced CT adrenal gland protocol or MRI with contrast is recommended. 3. Small lesion in the lateral aspect right kidney could be solid. Further evaluation with ultrasound or MRI is recommended. 4. Fecal impaction. 5. Otherwise no focal acute inflammatory process. Electronically Signed: Mor Jenkins MD at 16:01 EDT ,
--- NOTE | 2022-02-12 14:27 | CON.PCM.SX_ITS ---
Assessment & Plan Assessment/Plan (1) Abdominal distension: PLAN: Patient's acute abdominal series did show gaseous distention of the bowel along with fecal retention. Await CT abdomen pelvis. Patient does not have any pain on exam think likely this is due to constipation in combination with UTI. Addendum: CT abdomen pelvis complete but read pending large amount of stool throughout the entire colon patient will need aggressive bowel regimen initially with enemas. Discussed with Dr. Roberson plan to put NG for meds this patient is currently n.p.o. per speech. We will try to get bowels moving from below with enemas prior to giving any laxatives like lactulose or magnesium citrate p.o. Continue IV antibiotics for UTI and pneumonia per primary Azalia Elliott M.D. Pager: [phone] [facility] [address] [place] [address], [facility], [address] [place] [id number] Office: [phone] HPI Consult Data Date of Consult: 02/12/22 HPI Narrative HPI Narrative: MORE SALAZAR, is a 56 M who admitted due to pneumonia and UTI. Consult by hospitalist due to abdominal distention. Patient did have acute abdominal series with appears to have dilated colon with stool. CT abdomen pelvis with IV contrast currently scheduled. Patient does have past medical history for MRDD unable to really give history. Per hospitalist patient did have bowel movement couple days ago and he does occasionally have issues with constipation. Patient did denies any abdominal pain or flatus when asked. Patient did receive suppository and a tapwater enema also ordered as he had no results with the suppository. [facility] Medical History (Updated 02/12/22 @ 15:[address] Azalia Elliott MD) Autism Cognitive impairment Non-smoker Seizure disorder Seizures Home Medications clozapine 100 mg PO DAILY 07/24/16 [History Last Taken 02/10/22] clozapine 200 mg PO QHS 07/24/16 [History Last Taken 02/09/22] divalproex 125 mg PO QHS 07/24/16 [History Last Taken 02/09/22] divalproex 250 mg PO BIDCM 07/24/16 [History Last Taken 02/10/22] fluticasone propionate 1 spray NASAL DAILY 07/24/16 [History Last Taken 02/10/22] peg 400-propylene glycol (PF) [Systane 0.3-0.4% Eye Drops] 1 ea OP BID PRN 07/24/16 [History Last Taken Unknown] polyethylene glycol 3350 17 g PO DAILY 07/24/16 [History Last Taken 02/10/22] docusate sodium 200 mg PO BID 02/10/22 [History Last Taken 02/10/22] doxazosin 4 mg PO QHS 02/10/22 [History Last Taken 02/09/22] erythromycin 1 applic RIGHT EYE QHS 02/10/22 [History Last Taken 02/09/22] mirabegron [Myrbetriq] 25 mg PO DAILY 02/10/22 [History Last Taken 02/10/22] Allergy/AdvReac Type Severity Reaction Status Date / Time No Known Allergies Allergy Verified 07/08/19 19:01 Family History (Updated 02/10/22 @ 14:[address] Lala Carpenter MD) Mother Seizures COPD (chronic obstructive pulmonary disease) Father Glaucoma Surgical History (Updated 02/10/22 @ 14:[address] Lala Carpenter MD) History of lingual frenulectomy History of rectal surgery Social History (Updated 02/10/22 @ 13:[address] Lala Carpenter MD) housing: other details: [facility]. Smoking Status: Never smoker alcohol intake: never substance use type: does not use ROS Review of Systems ROS Unobtainable: due to mental condition Gastrointestinal Gastrointestinal: Denies abdominal pain Physical Exam Const alert and no apparent distress HEENT normocephalic and head/scalp atraumatic Resp Effort and Inspection: tachypneic Cardio regular rate GI soft to palpation Inspection: abdominal distention Palpation: Negative for tender or guarding Extremity no clubbing, cyanosis or edema Neuro CN's II-XII intact bilaterally Psych Mood & Affect: flat affect Lab / Micro Data Result Diagrams: 02/12/22 07:25 02/12/22 07:25 Labs: Laboratory Results - last 24 hr 02/11/22 18:57: Phosphorus 3.0, Magnesium 2.4 02/11/22 21:00: Ammonia 34.0 H 02/12/22 07:25: WBC 5.0, RBC 4.34 L, Hgb 13.0, Hct 39.3 L, MCV 90.6, MCH 30.0, MCHC 33.1, RDW Std Deviation 45.9 H, RDW Coeff of Carlos 13.7, Plt Count 141 L, MPV 10.8, Immature Gran % (Auto) 1.200 H, Neut % (Auto) 80.5 H, Lymph % (Auto) 4.6 L , [place] % (Auto) 13.5 H, Eos % (Auto) 0.0, Baso % (Auto) 0.2, Absolute Neuts (auto) 4.0, Absolute Lymphs (auto) 0.23 L, Nucleated RBC % 0, Differential Comment SCANNED 02/12/22 07:25: Sodium 143, Potassium 3.9, Chloride 106, Carbon Dioxide 34.0 H, Anion Gap 3 L, BUN 31 H, Creatinine 0.93, Estim Creat Clear Calc 100.23, Est GFR (MDRD) Af Amer 108, Est GFR (MDRD) Non-Af 89, BUN/Creatinine Ratio 33.3 H, Glucose 131 H, Calcium 8.7, Total Bilirubin 0.30, AST 20, ALT 19, Alkaline Phosphatase 99, Total Protein 7.1, Albumin 3.0 L, Globulin 4.1, Albumin/Globulin Ratio 0.7 L 02/12/22 07:25: Valproic Acid 47 L Micro: Microbiology 02/10/22 11:10 Blood Culture (Wb) - Left Wrist Blood Culture - Preliminary No growth in 48 hours. 02/12/22 02:35 Sputum, Expectorated/Coughed Gram Stain - Final 02/10/22 11:15 Blood Culture (Wb) - Right Hand Blood Culture - Preliminary 02/10/22 12:30 Urine Catheter - Catheter Urine Culture - Final Presumptive E. coli ABG Data ABG results: ABG 02/11/22 21:00 Specimen Type ART Sample Site R Radial pH 7.37 Bicarbonate Actual 29.6 H Total CO2 31 Base Excess 4 H O2 Saturation 96 ABG pCO2 51.3 H ABG pO2 84 [place] Test Positive O2 Delivery Device Cannula Liter Flow 3.0 Radiology Impression Abdomen X-Ray 02/12/22 10:35 IMPRESSION: Nonspecific gas pattern. Electronically Signed: Mor Jenkins MD at 11:16 EDT , Charges/Coding Visit Charges Inpatient E&M: 74211 Init Hosp L3
[2022-02-12] MEDS: Lidocaine 4% 5 ML Ampul 2 ML INHALATION (22:25)
[2022-02-12] MEDS: Oxymetazoline 0.05% 1 SPRAY SPRAY.BTL 2 SPRAY NASAL (22:26)
[2022-02-12] MEDS: Divalproex Sodium 125 MG Tablet PO (23:32)
--- NOTE | 2022-02-12 23:40 | RAD_ITS ---
INDICATION: ng placement EXAMINATION/TECHNIQUE: X-RAY - XR Abdomen 1 View COMPARISON: February 12, [address] FINDINGS: BOWEL GAS PATTERN: Enteric tube tip and side-port project subdiaphragmatic over the stomach. Prominent air-filled bowel in the upper abdomen. Prominent colonic stool. FREE AIR: No layering free air under the diaphragm. LOWER CHEST: Bilateral basilar interstitial thickening. Patchy left basilar opacity. Small left effusion. BONES AND SOFT TISSUES: No acute pathology. RAD/Abdomen Single View (Portable) IMPRESSION: Enteric tube projects subdiaphragmatic within the stomach Electronically Signed: Westley Martinez MD at 1:18 EDT ,
[2022-02-12] MEDS: Magnesium Citrate 300 ML 150 ML PO (23:45)
[2022-02-13] VITALS (26 sets, daily range): BP systolic 128–162; BP diastolic 75–100; PULSE 75–106; RESP 17–31; TEMP 36.3–36.8; O2SAT 84–97
[2022-02-13 05:22] LABS: Absolute Lymphocyte Count 0.28 X10^3/uL (0.83-4.51); Absolute Neutrophil Count 3.6 X10^3/uL (2.0-7.7); Basophil# 0.04 X10^3/uL; Basophil% 0.8 % (0-1); Hematocrit 41.9 % (40-54); Hemoglobin 13.3 g/dL (13.0-16.5); Lymphocyte # 0.28 X10^3/ul (0.83-4.51); Lymphocyte % 5.9 % (19-41); Mean Corp Hgb Conc 31.7 g/dL (32-36); Mean Corpuscular Hgb 29.8 pg (27.0-32.0); Mean Corpuscular Volume 93.7 fL (80-94); Mean Platelet Vol. 10.8 fl (6.2-12.0); Monocyte# 0.77 X10^3/uL; Monocyte% 16.1 % (0-10); NRBC Flagged by Analyzer 0 % (0-5); Neutrophil # 3.63 X10^3/uL (2.7-7.7); Neutrophil % 75.9 % (47-70); POSITIVE DIFFERENTIAL YES; Platelet Count 170 K/mm3 (150-450); RBC Distribution Width CV 13.5 % (11.6-14.6); RBC Distribution Width SD 46.8 fl (35.1-43.9); Red Blood Count 4.47 M/mm3 (4.6-6.2); White Blood Count 4.8 K/mm3 (4.4-11.0)
[2022-02-13] MEDS: guaiFENesin 10 ML UDC (200MG/10ML) 20 ML PO ×5 (05:23→23:32)
[2022-02-13] MEDS: Pramipexole Di-HCl 0.5 MG Tablet 1.5 MG PO ×2 (05:24→15:38)
[2022-02-13 05:33] LABS: Differential Indicated SCAN CRITERIA MET
[2022-02-13 05:54] LABS: ALB/GLOB Ratio 0.7 RATIO (0.9-2.4); AST(SGOT) 27 U/L (15-37); Alanine Aminotransfer ALT/SGPT 22 U/L (16-61); Albumin, Serum 2.9 g/dL (3.2-5.0); Alkaline Phosphatase 96 U/L (45-117); Anion Gap 3 (5-15); BUN 33 mg/dL (7-18); BUN/Creat Ratio 40.3 RATIO (10-20); Calcium,Total 8.5 mg/dL (8.5-10.1); Chloride 104 mmol/L (98-107); Creatinine, Serum 0.82 mg/dL (0.70-1.30); EST Glomerular Filtration Rate 103 mL/min (>60); Est Glom Filt Rate - Afr Amer 125 mL/min (>60); Estimated Creatinine Clearance 113.68 ml/min; Globulin 4.2 g/dL (2.2-4.2); Glucose 143 mg/dL (74-106); Magnesium 2.5 mg/dL (1.6-2.6); Phosphorus 2.4 mg/dL (2.5-4.9); Protein, Total 7.1 g/dL (6.4-8.2); Sodium Level 142 mmol/L (136-145)
--- NOTE | 2022-02-13 06:35 | PCM.HOSP.N ---
Hospitalist Note Called by nurse receiving early this morning to evaluate patient due to unresponsiveness, patient does not respond to painful stimuli, he does not appear to be in any distress and his vital signs appear to be stable. Labs obtained today showed a normal white blood cell count, normal hemoglobin, chemistry profile was remarkable for a bicarb of 35, BUN was 33, and glucose was 143. Patient's phosphorus was slightly low at 2.4. On examination, patient does not respond to painful stimuli, his respirations appear shallow but not rapid. Patient's abdomen is distended and tympanic with decreased bowel sounds. Heart rate and rhythm is regular. Pupils are minimally reactive to light and are not dilated or constricted. I have ordered an ammonia level on the patient as well as an ABG, patient will probably need a CT if these appear unremarkable. Patient is a DNR CC arrest with no intubation. Patient had a similar incident the other night when I was on, and ammonia level was done at that time which was normal and his ABG appeared to be normal.
[2022-02-13] MEDS: Ipratropium/Albuterol Sulfate 3 ML AMPUL.NEB INHALATION ×3 (06:36→19:13)
[2022-02-13 06:46] LABS: Base Excess 9 mmol/L (-2 to +2); Bicarbonate 35.6 mmol/L (22-26); Blood Gas Specimen Type ART; O2 Delivery Device Cannula; PO2 80 mmHG (75-100); SITE L Brach; SO2 94 % (95-99); Total Carbon Dioxide 38 mmol/L; pCO2 69.8 mmHg (35-45); pH 7.32 (7.35-7.45)
--- NOTE | 2022-02-13 08:37 | PCM.PN.SRG ---
Subjective Subjective Patient did throw up as NG was being placed. Night nurse stated that there is brown drainage from the NG. Patient did get the enemas yesterday but no real results as patient is not able to hold them well. Did try magnesium citrate however doubtful that I got down with the patient this morning Objective Data Objective Data Vital Signs: Vital Signs Temp Pulse Resp BP Pulse Ox 97.8 F 101 H 17 148/75 H 94 02/13/22 06:00 02/13/22 07:08 02/13/22 06:00 02/13/22 06:00 02/13/22 06:00 Oxygen Flow Rate (L/min) 5 Oxygen Delivery Method Nasal Cannula Weight: 221 lb 12.56 oz Body Mass Index (BMI) 29.2 Intake & Output: Intake and Output for Last 24 Hours 02/11/22 02/12/22 02/13/22 23:59 23:59 23:59 Intake Total 479 / 479 529 / 529 100 / 100 Output Total 400 / 400 200 / 200 Balance 79 / 79 329 / 329 100 / 100 Lab / Micro Data Result Diagrams: 02/13/22 04:18 02/13/22 04:18 Labs: Laboratory Results - last 24 hr 02/13/22 04:18: WBC 4.8, RBC 4.47 L, Hgb 13.3, Hct 41.9, MCV 93.7, MCH 29.8, MCHC 31.7 L, RDW Std Deviation 46.8 H, RDW Coeff of Carlos 13.5, Plt Count 170, MPV 10.8, Immature Gran % (Auto) 1.300 H, Neut % (Auto) 75.9 H, Lymph % (Auto) 5.9 L, [place] % (Auto) 16.1 H, Eos % (Auto) 0.0, Baso % (Auto) 0.8, Absolute Neuts (auto) 3.6, Absolute Lymphs (auto) 0.28 L, Nucleated RBC % 0 02/13/22 04:18: Sodium 142, Potassium 4.0, Chloride 104, Carbon Dioxide 35.0 H, Anion Gap 3 L, BUN 33 H, Creatinine 0.82, Estim Creat Clear Calc 113.68, Est GFR (MDRD) Af Amer 125, Est GFR (MDRD) Non-Af 103, BUN/Creatinine Ratio 40.3 H, Glucose 143 H, Calcium 8.5, Phosphorus 2.4 L, Magnesium 2.5, Total Bilirubin 0.30, AST 27, ALT 22, Alkaline Phosphatase 96, Total Protein 7.1, Albumin 2.9 L, Globulin 4.2, Albumin/Globulin Ratio 0.7 L 02/13/22 06:40: Ammonia 66.0 H Micro: Microbiology 02/10/22 11:10 Blood Culture (Wb) - Left Wrist Blood Culture - Preliminary No growth in 48 hours. 02/12/22 02:35 Sputum, Expectorated/Coughed Gram Stain - Final 02/10/22 11:15 Blood Culture (Wb) - Right Hand Blood Culture - Preliminary 02/10/22 12:30 Urine Catheter - Catheter Urine Culture - Final Presumptive E. coli 02/10/22 12:30 Urine, Clean Catch Legionella Antigen - Final 02/10/22 12:30 Urine, Clean Catch Streptococcus pneumoniae Antigen (M - Final 02/10/22 15:50 Mucosa - Nasopharyngeal Respiratory Panel (PCR) - Final 02/10/22 12:30 Nasal Secretion SARS-CoV-2 & FLU Antigen (Rapid) - Final ABG Data ABG results: ABG 02/13/22 06:39 Specimen Type ART Sample Site L Brach pH 7.32 L Bicarbonate Actual 35.6 H Total CO2 38 Base Excess 9 H O2 Saturation 94 L ABG pCO2 69.8 H* ABG pO2 80 O2 Delivery Device Cannula Liter Flow 5.0 Crit Call To/Read Back Yes Blood Gas Notified Whom TERELETSKY Radiography Diagnostic Testing: Radiology Impression Abdomen X-Ray 02/12/22 10:35 IMPRESSION: Nonspecific gas pattern. Electronically Signed: Mor Jenkins MD at 11:16 EDT , Abdomen/Pelvis CT 02/12/22 12:46 IMPRESSION: 1. Mild hepatosplenomegaly. 2. 2.6 cm left adrenal mass could be due to adenoma. Further evaluation with contrast-enhanced CT adrenal gland protocol or MRI with contrast is recommended. 3. Small lesion in the lateral aspect right kidney could be solid. Further evaluation with ultrasound or MRI is recommended. 4. Fecal impaction. 5. Otherwise no focal acute inflammatory process. Electronically Signed: Mor Jenkins MD at 16:01 EDT , KUB X-Ray 02/12/22 23:40 IMPRESSION: Enteric tube projects subdiaphragmatic within the stomach Electronically Signed: Westley Martinez MD at 1:18 EDT , Physical Exam Const no apparent distress General Appearance: lethargic HEENT normocephalic and head/scalp atraumatic Resp normal respiratory effort Cardio regular rate GI soft to palpation Inspection: abdominal distention Palpation: Negative for tender or guarding Extremity no clubbing, cyanosis or edema Assessment & Plan Assessment/Plan (1) Abdominal distension: (2) Constipation: PLAN: NG in place looks to be draining brownish/reddish drainage. Question whether there is trauma from placement of NG or some irritation from the NG itself. Place patient on Protonix 40 mg IV BID Constipation?patient has a large amount of stool per CAT scan would continue enemas to try to get things moving as unable to get much down the NG at this point. May be able to use the NG in the future. Continue IV antibiotics for UTI and pneumonia per primary Azalia Elliott M.D. Pager: [phone] [facility] [address] [place] [address], [facility], [address] [place] [address] Office: [phone] Charges/Coding Visit Charges Inpatient E&M: 97990 Subs Hosp L2
[2022-02-13] MEDS: Enoxaparin 40 MG/0.4 ML Syringe SC (09:05)
[2022-02-13] MEDS: Polyethylene Glycol 3350 17 GM PACKET PO (09:05)
[2022-02-13] MEDS: Fluticasone 0.05% 1 SPRAY NASAL.SRY NASAL (09:05)
[2022-02-13] MEDS: Tolterodine Tartrate 4 MG CAP.SA PO (09:05)
[2022-02-13] MEDS: Potassium Chloride Oral Tablet 20 MEQ 40 MEQ PO (09:05)
[2022-02-13] MEDS: 0.9% Saline Lock 10 ML Syringe IV (09:17)
[2022-02-13] MEDS: Lactulose 20 GM/30 ML UDC NG ×4 (09:17→23:34)
--- NOTE | 2022-02-13 09:46 | CASEMGMT ---
SW noted in patient's chart that patient's dad is interested in patient going to a SNF at d/c. His first choice is [facility] and second is [place]. Patient is not ready for discharge. TRACE called patient's dad and left him a voice mail requesting a return call. Rose GRANADOS
--- NOTE | 2022-02-13 10:03 | CT_ITS ---
INDICATION: Mental status change EXAMINATION: CT BRAIN - CT Head or Brain W/O Contrast Injection TECHNIQUE: Multiple axial images were obtained of the head without intravenous contrast. A radiation dose optimization technique was used for this scan. IV Contrast dosage and agent: None. COMPARISON: CT head without contrast from 10/04/2016. FINDINGS: BRAIN PARENCHYMA: No intra- or extra-axial hemorrhage. No acute cortical infarction. No intracranial mass or mass effect. There is preservation of the rodriguez/white matter interface. No significant cerebral edema. CSF SPACES: Stable configuration of the ventricles. No hydrocephalus. Stable megacisterna magna. CALVARIUM, SKULL BASE, PARANASAL SINUSES AND MASTOID AIR CELLS: Mild mucosal thickening in the sinuses. Sinuses are otherwise patent. Mastoid air cells are clear. No acute findings in the bones. ORBITS: Remonstration of a right orbital prosthesis. Otherwise, the orbits and globes are unremarkable. CT/Brain/Head without Contrast IMPRESSION: No acute findings. Electronically Signed: Zain Altman, at 10:52 EDT ,
[2022-02-13] MEDS: Fleet Enema 1 ML RC ×3 (12:23→20:56)
[2022-02-13 13:05] LABS: Base Excess 11 mmol/L (-2 to +2); Bicarbonate 36.8 mmol/L (22-26); Blood Gas Specimen Type ART; O2 Delivery Device Cannula; PO2 69 mmHG (75-100); SITE L Brach; SO2 92 % (95-99); Total Carbon Dioxide 39 mmol/L; pCO2 68.7 mmHg (35-45); pH 7.34 (7.35-7.45)
--- NOTE | 2022-02-13 13:31 | CASEMGMT ---
SW received a return call from patient's parents. They confirmed [facility] is their first choice and then [place] is their second choice. SW let them know patient is not ready quite yet, but SW will make referrals when appropriate. SW did tell them that currently [facility] does not have any beds. Rose Butts MSW ROBERTA
--- NOTE | 2022-02-13 13:34 | CASEMGMT ---
TRACE did call [facility] in TCU and put patient's name on the list. Rose Butts DOCUMENTUM CONSULTANT ROBERTA
--- NOTE | 2022-02-13 16:08 | PCM.PN.HOSP ---
Subjective Subjective Patient evidently developed some increased somnolence overnight and an ABG and ammonia level were pending this morning. Both are slightly abnormal however the patient remains with an NG tube in place and had emesis overnight therefore BiPAP would not be appropriate. He only shows a mild respiratory acidosis on what appears to be a chronic respiratory acidosis but his ammonia level has increased during his admission and was up to 66 from 25 on admission and has been steadily rising. He remains very somnolent. Objective Data Objective Data Vital Signs: Vital Signs Temp Pulse Resp BP Pulse Ox 97.4 F L 75 28 H 133/82 H 95 02/13/22 15:00 02/13/22 15:00 02/13/22 15:00 02/13/22 15:00 02/13/22 15:00 Oxygen Flow Rate (L/min) 2 Oxygen Delivery Method Nasal Cannula Weight: 100.6 kg Body Mass Index (BMI) 29.2 Intake & Output: Intake and Output for Last 24 Hours 02/11/22 02/12/22 02/13/22 23:59 23:59 23:59 Intake Total 479 / 479 529 / 529 610 / 610 Output Total 400 / 400 200 / 200 350 / 350 Balance 79 / 79 329 / 329 260 / 260 Lab / Micro Data Result Diagrams: 02/13/22 04:18 02/13/22 04:18 Labs: Laboratory Results - last 24 hr 02/13/22 04:18: WBC 4.8, RBC 4.47 L, Hgb 13.3, Hct 41.9, MCV 93.7, MCH 29.8, MCHC 31.7 L, RDW Std Deviation 46.8 H, RDW Coeff of Carlos 13.5, Plt Count 170, MPV 10.8, Immature Gran % (Auto) 1.300 H, Neut % (Auto) 75.9 H, Lymph % (Auto) 5.9 L, [place] % (Auto) 16.1 H, Eos % (Auto) 0.0, Baso % (Auto) 0.8, Absolute Neuts (auto) 3.6, Absolute Lymphs (auto) 0.28 L, Nucleated RBC % 0 02/13/22 04:18: Sodium 142, Potassium 4.0, Chloride 104, Carbon Dioxide 35.0 H, Anion Gap 3 L, BUN 33 H, Creatinine 0.82, Estim Creat Clear Calc 113.68, Est GFR (MDRD) Af Amer 125, Est GFR (MDRD) Non-Af 103, BUN/Creatinine Ratio 40.3 H, Glucose 143 H, Calcium 8.5, Phosphorus 2.4 L, Magnesium 2.5, Total Bilirubin 0.30, AST 27, ALT 22, Alkaline Phosphatase 96, Total Protein 7.1, Albumin 2.9 L, Globulin 4.2, Albumin/Globulin Ratio 0.7 L 02/13/22 06:40: Ammonia 66.0 H Micro: Microbiology 02/13/22 11:50 Sputum, Induced/[place] Gram Stain - Final 02/12/22 02:35 Sputum, Expectorated/Coughed Gram Stain - Final 02/12/22 02:35 Sputum, Expectorated/Coughed Respiratory Culture - Preliminary Appears to be normal respiratory [place]. Further studies to follow. 02/10/22 11:10 Blood Culture (Wb) - Left Wrist Blood Culture - Preliminary No growth in 48 hours. 02/10/22 11:15 Blood Culture (Wb) - Right Hand Blood Culture - Preliminary 02/10/22 12:30 Urine Catheter - Catheter Urine Culture - Final Presumptive E. coli 02/10/22 12:30 Urine, Clean Catch Legionella Antigen - Final 02/10/22 12:30 Urine, Clean Catch Streptococcus pneumoniae Antigen (M - Final 02/10/22 15:50 Mucosa - Nasopharyngeal Respiratory Panel (PCR) - Final 02/10/22 12:30 Nasal Secretion SARS-CoV-2 & FLU Antigen (Rapid) - Final ABG Data ABG results: ABG 02/13/22 02/13/22 06:39 12:59 Specimen Type ART ART Sample Site L Brach L Brach pH 7.32 L 7.34 L Bicarbonate Actual 35.6 H 36.8 H Total CO2 38 39 Base Excess 9 H 11 H O2 Saturation 94 L 92 L ABG pCO2 69.8 H* 68.7 H* ABG pO2 80 69 L O2 Delivery Device Cannula Cannula Liter Flow 5.0 3.0 Crit Call To/Read Back Yes Yes Blood Gas Notified Whom TERELETSKY LENKA Radiography Diagnostic Testing: Radiology Impression KUB X-Ray 02/12/22 23:40 IMPRESSION: Enteric tube projects subdiaphragmatic within the stomach Electronically Signed: Westley Martinez MD at 1:18 EDT , Brain CT 02/13/22 10:03 IMPRESSION: No acute findings. Electronically Signed: Zain Altman, at 10:52 EDT , Physical Exam Const Constitutional Narrative: Upper middle-aged white male lying in bed, fairly unresponsive to verbal stimuli with minimal responsiveness to tactile stimulus/noxious stimulus, nursing and mother at the bedside Exam Limitations: altered mental status Nutritional Appearance: overweight HEENT head/scalp atraumatic Head and Scalp: normocephalic Eyes conjunctivae normal Eyes Narrative: Pupils equal round but reactivity was limited bilaterally Resp no retractions and no use of accessory muscles Resp Narrative: Some rhonchi noted but seems to be upper airway, lungs diminished at bases, tachypnea Auscultation: rhonchi; Negative for crackles, rales or wheezes Cardio regular rate, regular rhythm, S1 normal heart sound, S2 normal heart sound, no murmurs, no rub, no gallops, no clicks and no JVD GI soft to palpation and non-tender GI Narrative: Distended, bowel sounds are hypoactive Extremity no clubbing, cyanosis or edema Peripheral Pulses: Yes pulses 2+ throughout Neuro Neuro Narrative: Spontaneously moves extremities but unable to follow commands or have any meaningful interaction at this time Assessment & Plan Assessment/Plan (1) Abdominal distension: (2) Constipation: (3) Pneumonia: QUALIFIERS: Pneumonia type: due to unspecified organism Laterality: bilateral Lung location: lower lobe of lung Qualified Code(s): J18.9 - Pneumonia, unspecified organism (4) Acute UTI: (5) Hyperammonemia: (6) Acute respiratory failure with hypoxia and hypercapnia: (7) Metabolic encephalopathy: (8) Hypophosphatemia: PLAN: Acute hypoxic and hypercapnic respiratory failure secondary to suspected aspiration pneumonia -Patient was on 6 L this morning but has been able to be weaned to 3 L this afternoon -ABG from this morning showed a pH of 7.32 a PCO2 of 69.8 and a PO2 of 80 on 5 L nasal cannula his repeat ABG this morning shows stability with a pH of 7.34 a PCO2 of 68.7 and a PO2 of 69 on 3 L. -Repeat ABG in a.m. -As needed NT suctioning -Continue pulmonary toilet as able -Patient is unfortunately unable to be compliant with incentive spirometry or Pep therapy at this time secondary to mental status -Continue antibiotics -Sputum culture sent with NT suctioning earlier today -Cultures are negative -Viral PCR is negative -Legionella and strep pneumo antigens are negative -COVID and flu antigens are negative Acute urinary tract infection-E. coli -Continue antibiotics -Organism is pansensitive -If patient needs continued therapy will convert to oral antibiotics once GI function has improved Acute on chronic constipation with obstipation -General surgery is following -Saline and fleets enemas initiated -Lactulose started this morning given elevated ammonia level -Continue IV antibiotics -NG tube in place especially with emesis last evening -Would maintain until bowel output has improved -CT shows marked constipation and patient has had issues with constipation previously per discussion with his mother earlier today Hypophosphatemia -Phos replacement ordered this morning -Repeat in a.m. Toxic/metabolic encephalopathy -Likely related to hyperammonemia and mild hypercapnia plus minus medications -Depakote is on hold -CT of the head was negative for any acute findings -Patient is a bit more arousable this afternoon -Continue to monitor clinically Hyperammonemia -Ammonia levels are slowly rising since admission -Hold Depakote -Start lactulose 4 times daily as this should help with ammonia levels and bowel movements--> give via NG tube -Repeat ammonia level in the a.m. Autism with cognitive impairment/history of seizure disorder -Hold Clozaril, Depakote, Mirapex, and Cogentin with mental status changes -Give via NG Obesity -Recommend weight loss -Complicates treatment, prognosis, outcomes -Suspect patient may have some baseline obstructive sleep apnea DVT prophylaxis -SCDs -Lovenox CODE STATUS -DNR CCA with no intubation as per discussion from hospitalist, mother, and the patient's brother who is an drill instructor in [place]--> this was reiterated by his mother today. Extensive discussion with his mother had today explaining current issues and barriers to improvement as well as changes made with regards to mental status and respiratory status Charges/Coding Visit Charges Inpatient E&M: 74871 Subs Hosp L3
[2022-02-14] VITALS (24 sets, daily range): BP systolic 124–151; BP diastolic 68–130; PULSE 69–88; RESP 20–40; TEMP 36–36.7; O2SAT 88–98
[2022-02-14] MEDS: guaiFENesin 10 ML UDC (200MG/10ML) 20 ML PO ×6 (02:13→21:50)
[2022-02-14] MEDS: Lactulose 20 GM/30 ML UDC NG ×3 (05:30→21:50)
[2022-02-14 06:36] LABS: Absolute Lymphocyte Count 0.49 X10^3/uL (0.83-4.51); Basophil# 0.03 X10^3/uL; Basophil% 0.4 % (0-1); Eosinophil# 0.01 X10^3/uL; Eosinophils% 0.1 % (0-5); Hematocrit 40.8 % (40-54); Lymphocyte # 0.49 X10^3/ul (0.83-4.51); Lymphocyte % 7.1 % (19-41); Mean Corp Hgb Conc 31.9 g/dL (32-36); Mean Corpuscular Hgb 29.7 pg (27.0-32.0); Mean Corpuscular Volume 93.2 fL (80-94); Mean Platelet Vol. 10.1 fl (6.2-12.0); Monocyte# 1.23 X10^3/uL; Monocyte% 17.9 % (0-10); NRBC Flagged by Analyzer 0 % (0-5); Neutrophil % 72.9 % (47-70); POSITIVE DIFFERENTIAL YES; Platelet Count 185 K/mm3 (150-450); RBC Distribution Width CV 13.4 % (11.6-14.6); RBC Distribution Width SD 46.4 fl (35.1-43.9); Red Blood Count 4.38 M/mm3 (4.6-6.2); White Blood Count 6.9 K/mm3 (4.4-11.0)
[2022-02-14 06:37] LABS: Differential Indicated SCAN CRITERIA MET
[2022-02-14 07:10] LABS: ALB/GLOB Ratio 0.6 RATIO (0.9-2.4); AST(SGOT) 28 U/L (15-37); Alanine Aminotransfer ALT/SGPT 18 U/L (16-61); Albumin, Serum 2.8 g/dL (3.2-5.0); Alkaline Phosphatase 99 U/L (45-117); Anion Gap 2 (5-15); BUN 31 mg/dL (7-18); BUN/Creat Ratio 34.7 RATIO (10-20); Calcium,Total 9.3 mg/dL (8.5-10.1); Chloride 105 mmol/L (98-107); Creatinine, Serum 0.89 mg/dL (0.70-1.30); EST Glomerular Filtration Rate 93 mL/min (>60); Est Glom Filt Rate - Afr Amer 113 mL/min (>60); Estimated Creatinine Clearance 104.74 ml/min; Globulin 4.6 g/dL (2.2-4.2); Glucose 137 mg/dL (74-106); Magnesium 2.9 mg/dL (1.6-2.6); Potassium 4.6 mmol/L (3.5-5.1); Protein, Total 7.4 g/dL (6.4-8.2); Sodium Level 145 mmol/L (136-145)
[2022-02-14] MEDS: Ipratropium/Albuterol Sulfate 3 ML AMPUL.NEB INHALATION ×3 (07:23→19:34)
[2022-02-14 07:51] LABS: Allen Test Positive; Base Excess 12 mmol/L (-2 to +2); Bicarbonate 36.6 mmol/L (22-26); Blood Gas Specimen Type ART; PO2 55 mmHG (75-100); SITE L Radial; SO2 87 % (95-99); Total Carbon Dioxide 38 mmol/L; pCO2 57.9 mmHg (35-45); pH 7.41 (7.35-7.45)
--- NOTE | 2022-02-14 08:55 | PCM.PN.SRG ---
Subjective Subjective Had multiple large bowel movements with enemas yesterday and did also have a large enema today is on every 6 hourly lactulose down NG Objective Data Objective Data Vital Signs: Vital Signs Temp Pulse Resp BP Pulse Ox 97.6 F L 75 20 H 145/87 H 98 02/14/22 06:00 02/14/22 07:41 02/14/22 06:00 02/14/22 06:00 02/14/22 06:00 Oxygen Flow Rate (L/min) 5 Oxygen Delivery Method Nasal Cannula Weight: 218 lb 4.122 oz Body Mass Index (BMI) 29.2 Intake & Output: Intake and Output for Last 24 Hours 02/12/22 02/13/22 02/14/22 23:59 23:59 23:59 Intake Total 529 / 529 1320 / 1320 200 / 200 Output Total 200 / 200 500 / 500 350 / 350 Balance 329 / 329 820 / 820 -150 / -150 Lab / Micro Data Result Diagrams: 02/14/22 06:20 02/14/22 06:20 Labs: Laboratory Results - last 24 hr 02/14/22 06:20: WBC 6.9, RBC 4.38 L, Hgb 13.0, Hct 40.8, MCV 93.2, MCH 29.7, MCHC 31.9 L, RDW Std Deviation 46.4 H, RDW Coeff of Carlos 13.4, Plt Count 185, MPV 10.1, Immature Gran % (Auto) 1.600 H, Neut % (Auto) 72.9 H, Lymph % (Auto) 7.1 L, Cameron % (Auto) 17.9 H, Eos % (Auto) 0.1, Baso % (Auto) 0.4, Absolute Neuts (auto) 5.0, Absolute Lymphs (auto) 0.49 L, Nucleated RBC % 0 02/14/22 06:20: Sodium 145, Potassium 4.6, Chloride 105, Carbon Dioxide 38.0 H, Anion Gap 2 L, BUN 31 H, Creatinine 0.89, Estim Creat Clear Calc 104.74, Est GFR (MDRD) Af Amer 113, Est GFR (MDRD) Non-Af 93, BUN/Creatinine Ratio 34.7 H, Glucose 137 H, Calcium 9.3, Magnesium 2.9 H, Total Bilirubin 0.30, AST 28, ALT 18, Alkaline Phosphatase 99, Total Protein 7.4, Albumin 2.8 L, Globulin 4.6 H, Albumin/Globulin Ratio 0.6 L 02/14/22 06:20: Ammonia 29.0 Micro: Microbiology 02/12/22 02:35 Sputum, Expectorated/Coughed Gram Stain - Final 02/12/22 02:35 Sputum, Expectorated/Coughed Respiratory Culture - Final Presumptive C albicans 02/10/22 11:15 Blood Culture (Wb) - Right Hand Blood Culture - Preliminary Escherichia coli 02/13/22 11:50 Sputum, Induced/Lukens Gram Stain - Final 02/10/22 11:10 Blood Culture (Wb) - Left Wrist Blood Culture - Preliminary No growth in 48 hours. 02/10/22 12:30 Urine Catheter - Catheter Urine Culture - Final Presumptive E. coli 02/10/22 12:30 Urine, Clean Catch Legionella Antigen - Final 02/10/22 12:30 Urine, Clean Catch Streptococcus pneumoniae Antigen (M - Final 02/10/22 15:50 Mucosa - Nasopharyngeal Respiratory Panel (PCR) - Final 02/10/22 12:30 Nasal Secretion SARS-CoV-2 & FLU Antigen (Rapid) - Final ABG Data ABG results: ABG 02/13/22 02/14/22 12:59 07:46 Specimen Type ART ART Sample Site L Brach L Radial pH 7.34 L 7.41 Bicarbonate Actual 36.8 H 36.6 H Total CO2 39 38 Base Excess 11 H 12 H O2 Saturation 92 L 87 L ABG pCO2 68.7 H* 57.9 H ABG pO2 69 L 55 L Felton Test Positive O2 Delivery Device Cannula Liter Flow 3.0 4.0 Crit Call To/Read Back Yes Blood Gas Notified Whom LENKA Radiography Diagnostic Testing: Radiology Impression Brain CT 02/13/22 10:03 IMPRESSION: No acute findings. Electronically Signed: Zain Altman, at 10:52 EDT , Physical Exam Const alert and no apparent distress HEENT normocephalic and head/scalp atraumatic Resp Effort and Inspection: tachypneic Cardio regular rate GI soft to palpation Inspection: abdominal distention Palpation: Negative for tender or guarding Extremity no clubbing, cyanosis or edema Neuro CN's II-XII intact bilaterally Psych Mood & Affect: flat affect Assessment & Plan Assessment/Plan (1) Abdominal distension: (2) Constipation: PLAN: Continue NG/n.p.o. Constipation?patient currently on lactulose every 6 hours. His NG drainage decreases may also give some magnesium citrate down the NG. Continue IV antibiotics for UTI and pneumonia per primary Azalia Elliott M.D. Pager: [phone] [facility] [address] [place] [address], [address] [place] [address] Office: [phone] Charges/Coding Visit Charges Inpatient E&M: 48629 [facility] Hosp L2
[2022-02-14] MEDS: Enoxaparin 40 MG/0.4 ML Syringe SC (09:07)
[2022-02-14] MEDS: Polyethylene Glycol 3350 17 GM PACKET PO (09:08)
[2022-02-14] MEDS: Fluticasone 0.05% 1 SPRAY NASAL.SRY NASAL (09:09)
[2022-02-14] MEDS: Tolterodine Tartrate 4 MG CAP.SA PO (09:10)
[2022-02-14] MEDS: 0.9% Normal Saline 1,000 ML 75 ML IV (09:13)
[2022-02-14 09:15] LABS: Pathologist Review Reviewed
--- NOTE | 2022-02-14 10:19 | CASEMGMT ---
Addendum entered by Rose Butts 02/14/22 14:40: TCU is not able to accept patient. Rose GRANADOS Original Note: Physician feels patient may be ready for discharge by the end of the week. SW called [facility] in TCU and asked her to look at patient to see if they can take patient. Rose GRANADOS
--- NOTE | 2022-02-14 12:00 | RAD_ITS ---
STUDY: X-RAY - ABDOMEN/PELVIS REASON FOR EXAM: Male, 56 years old. NG placement TECHNIQUE: AP view of the chest and AP view of the abdomen COMPARISON: None. FINDINGS: Please see the impression. RAD/Abdomen Single View (Portable) IMPRESSION: Enteric tube ends in the mid gastric body. Cardiomegaly with mild pulmonary vascular congestion. Small right-sided pleural effusion. Bilateral lower lung airspace opacities, due to atelectasis, aspiration, or pneumonia. No pneumothorax. Multilevel thoracolumbar spondylosis. . Electronically Signed: Jose Daniel Mccabe MD at 12:37 EDT ,
--- NOTE | 2022-02-14 12:00 | RAD_ITS ---
STUDY: X-RAY CHEST REASON FOR EXAM: Male, 56 years old. hypoxiA TECHNIQUE: AP view of the chest and AP view of the abdomen COMPARISON: None. FINDINGS: Please see the impression. RAD/Chest 1 View (Portable) IMPRESSION: Enteric tube ends in the mid gastric body. Cardiomegaly with mild pulmonary vascular congestion. Small right-sided pleural effusion. Bilateral lower lung airspace opacities, due to atelectasis, aspiration, or pneumonia. No pneumothorax. Multilevel thoracolumbar spondylosis. Electronically Signed: Jose Daniel Mccabe MD at 12:35 EDT ,
--- NOTE | 2022-02-14 15:42 | PN.HOSP_ITS ---
Subjective Subjective Significant issues over the night. Patient has started have significant bowel movements. Mentation is improving. Objective Data Objective Data Vital Signs: Vital Signs Temp Pulse Resp BP Pulse Ox 97.1 F L 69 26 H 135/78 H 96 02/14/22 12:00 02/14/22 12:53 02/14/22 12:53 02/14/22 12:00 02/14/22 12:00 Oxygen Flow Rate (L/min) 6 Oxygen Delivery Method Nasal Cannula Weight: 99 kg Body Mass Index (BMI) 29.2 Intake & Output: Intake and Output for Last 24 Hours 02/12/22 02/13/22 02/14/22 23:59 23:59 23:59 Intake Total 529 / 529 1320 / 1320 390 / 390 Output Total 200 / 200 500 / 500 350 / 350 Balance 329 / 329 820 / 820 40 / 40 Lab / Micro Data Result Diagrams: 02/14/22 06:20 02/14/22 06:20 Labs: Laboratory Results - last 24 hr 02/10/22 11:10: Diff Path Review Reviewed 02/14/22 06:20: WBC 6.9, RBC 4.38 L, Hgb 13.0, Hct 40.8, MCV 93.2, MCH 29.7, MCHC 31.9 L, RDW Std Deviation 46.4 H, RDW Coeff of Carlos 13.4, Plt Count 185, MPV 10.1, Immature Gran % (Auto) 1.600 H, Neut % (Auto) 72.9 H, Lymph % (Auto) 7.1 L , Geary % (Auto) 17.9 H, Eos % (Auto) 0.1, Baso % (Auto) 0.4, Absolute Neuts (auto) 5.0, Absolute Lymphs (auto) 0.49 L, Nucleated RBC % 0 02/14/22 06:20: Sodium 145, Potassium 4.6, Chloride 105, Carbon Dioxide 38.0 H, Anion Gap 2 L, BUN 31 H, Creatinine 0.89, Estim Creat Clear Calc 104.74, Est GFR (MDRD) Af Amer 113, Est GFR (MDRD) Non-Af 93, BUN/Creatinine Ratio 34.7 H, Glucose 137 H, Calcium 9.3, Magnesium 2.9 H, Total Bilirubin 0.30, AST 28, ALT 18, Alkaline Phosphatase 99, Total Protein 7.4, Albumin 2.8 L, Globulin 4.6 H, Albumin/Globulin Ratio 0.6 L 02/14/22 06:20: Ammonia 29.0 Micro: Microbiology 02/13/22 11:50 Sputum, Induced/Lukens Gram Stain - Final 02/13/22 11:50 Sputum, Induced/Lukens Respiratory Culture - Preliminary Culture exhibits no growth. 02/12/22 02:35 Sputum, Expectorated/Coughed Gram Stain - Final 02/12/22 02:35 Sputum, Expectorated/Coughed Respiratory Culture - Final Presumptive C albicans 02/10/22 11:15 Blood Culture (Wb) - Right Hand Blood Culture - Preliminary Escherichia coli 02/10/22 11:10 Blood Culture (Wb) - Left Wrist Blood Culture - Preliminary No growth in 48 hours. 02/10/22 12:30 Urine Catheter - Catheter Urine Culture - Final Presumptive E. coli 02/10/22 12:30 Urine, Clean Catch Legionella Antigen - Final 02/10/22 12:30 Urine, Clean Catch Streptococcus pneumoniae Antigen (M - Final 02/10/22 15:50 Mucosa - Nasopharyngeal Respiratory Panel (PCR) - Final 02/10/22 12:30 Nasal Secretion SARS-CoV-2 & FLU Antigen (Rapid) - Final ABG Data ABG results: ABG 02/14/22 07:46 Specimen Type ART Sample Site L Radial pH 7.41 Bicarbonate Actual 36.6 H Total CO2 38 Base Excess 12 H O2 Saturation 87 L ABG pCO2 57.9 H ABG pO2 55 L Felton Test Positive Liter Flow 4.0 Radiography Diagnostic Testing: Radiology Impression Chest X-Ray 02/14/22 12:00 IMPRESSION: Enteric tube ends in the mid gastric body. Cardiomegaly with mild pulmonary vascular congestion. Small right-sided pleural effusion. Bilateral lower lung airspace opacities, due to atelectasis, aspiration, or pneumonia. No pneumothorax. Multilevel thoracolumbar spondylosis. Electronically Signed: Jose Daniel Mccabe MD at 12:35 EDT , KUB X-Ray 02/14/22 12:00 IMPRESSION: Enteric tube ends in the mid gastric body. Cardiomegaly with mild pulmonary vascular congestion. Small right-sided pleural effusion. Bilateral lower lung airspace opacities, due to atelectasis, aspiration, or pneumonia. No pneumothorax. Multilevel thoracolumbar spondylosis. . Electronically Signed: Jose Daniel Mccabe MD at 12:37 EDT , Physical Exam Const alert Constitutional Narrative: Upper middle-aged white male lying in bed, awakens easily and talks to me, follows commands consistently, appears comfortable and nontoxic Exam Limitations: other limitations Nutritional Appearance: overweight HEENT head/scalp atraumatic and moist oral mucous membranes Head and Scalp: normocephalic Resp no retractions and no use of accessory muscles Resp Narrative: Scattered rhonchi left greater than right, diminished at the bases bilaterally, still with some mild tachypnea however improved Auscultation: rhonchi; Negative for crackles, rales or wheezes Cardio regular rate, regular rhythm, S1 normal heart sound, S2 normal heart sound, no murmurs, no rub, no gallops, no clicks and no JVD GI soft to palpation and non-tender GI Narrative: Distended, bowel sounds are hyperactive Extremity no clubbing, cyanosis or edema Peripheral Pulses: Yes pulses 2+ throughout Neuro moves all extremities and no focal motor deficits Neuro Narrative: Alert and appropriately reactive, follows all commands and moves all extremities symmetrically Sensorium / Orientation: awake and alert Assessment & Plan Assessment/Plan (1) Abdominal distension: (2) Constipation: (3) Pneumonia: QUALIFIERS: Pneumonia type: due to unspecified organism Laterality: bilateral Lung location: lower lobe of lung Qualified Code(s): J18.9 - Pneumonia, unspecified organism (4) Acute UTI: (5) Hyperammonemia: (6) Acute respiratory failure with hypoxia and hypercapnia: (7) Metabolic encephalopathy: (8) Hypophosphatemia: PLAN: Acute hypoxic and hypercapnic respiratory failure secondary to suspected aspiration pneumonia -Patient is currently on 6 L nasal cannula -Wean oxygen as able -ABG this morning is normalized with regards to his pH and it appears his PCO2 is at baseline however his P O2 is low and the patient oxygen was titrated up from 3 L to 6 L -Sputum culture is pending -As needed NT suctioning -Continue pulmonary toilet as able -Patient's baseline mental status is somewhat impairing his ability to participate and Pep therapy and incentive spirometry -Continue antibiotics -Viral PCR is negative -Legionella and strep pneumo antigens are negative -COVID and flu antigens are negative Acute urinary tract infection-E. coli -Continue antibiotics day 4 of 7 -Organism is pansensitive -If patient needs continued therapy will convert to oral antibiotics once GI function has improved Acute on chronic constipation with obstipation -General surgery is following -Patient with significant bowel movements today and improved abdominal distention on reevaluation this afternoon -Continue lactulose but decrease from 4 times daily to 3 times daily -Continue IV antibiotics -NG tube in place especially with emesis last evening -Would maintain until bowel output has improved -Patient has history of constipation issues and would recommend discharging on a bowel regimen Hypophosphatemia -Repeat in a.m. Toxic/metabolic encephalopathy -Acutely improved -Likely related to hyperammonemia and mild hypercapnia plus minus medications -Continue to hold Depakote -Restart clozapine -CT of the head was negative for any acute findings -Patient is a bit more arousable this afternoon -Continue to monitor clinically Hyperammonemia -Ammonia levels have normalized now with lactulose -Continue to hold Depakote -Wean lactulose to 3 times daily -Would now only repeat ammonia level if patient has increased somnolence Autism with cognitive impairment/history of seizure disorder -Restart Clozaril but continue to hold Depakote, Mirapex, and Cogentin with mental status changes -Give via NG Obesity -Recommend weight loss -Complicates treatment, prognosis, outcomes -Suspect patient may have some baseline obstructive sleep apnea DVT prophylaxis -SCDs -Lovenox CODE STATUS -DNR CCA with no intubation as per discussion from hospitalist, mother, and the patient's brother who is an crimping machine operator in [place] Called father and update given with regards to overall improvement in status and plan of care Charges/Coding Visit Charges Inpatient E&M: 30459 Subs Hosp L2
[2022-02-14] MEDS: Furosemide 40 MG/4 ML Vial IV (20:43)
[2022-02-14] MEDS: 0.9% Saline Lock 10 ML Syringe IV (20:44)
[2022-02-15] VITALS (17 sets, daily range): BP systolic 117–139; BP diastolic 67–85; PULSE 64–99; RESP 15–26; TEMP 36.4–36.6; O2SAT 89–98
[2022-02-15] MEDS: guaiFENesin 10 ML UDC (200MG/10ML) 20 ML PO ×6 (01:28→21:49)
[2022-02-15] MEDS: Lactulose 20 GM/30 ML UDC NG (05:51)
[2022-02-15 06:42] LABS: Anion Gap 2 (5-15); BUN 29 mg/dL (7-18); BUN/Creat Ratio 35.2 RATIO (10-20); Calcium,Total 8.9 mg/dL (8.5-10.1); Chloride 105 mmol/L (98-107); Creatinine, Serum 0.82 mg/dL (0.70-1.30); EST Glomerular Filtration Rate 103 mL/min (>60); Est Glom Filt Rate - Afr Amer 124 mL/min (>60); Estimated Creatinine Clearance 113.68 ml/min; Glucose 118 mg/dL (74-106); Potassium 3.7 mmol/L (3.5-5.1); Sodium Level 148 mmol/L (136-145)
[2022-02-15] MEDS: Ipratropium/Albuterol Sulfate 3 ML AMPUL.NEB INHALATION ×3 (07:53→18:47)
--- NOTE | 2022-02-15 08:12 | NURSING ---
When this RN was getting bedside report, asked if NG tube had been discontinued since there was no NG tube visible in the nare. Nightshift RN said that NG tube was just in place at her 0600 rounding. This RN asked Dr. Jimenez if we could leave NG tube at at this time since pt was awake and alert. asked for Speech therapy to see pt today and leave NG tube out at this time.
--- NOTE | 2022-02-15 08:25 | NURSING ---
Restraints removed during bedside report at 07 when it was noted that NG tube was no longer in place.
--- NOTE | 2022-02-15 09:40 | PN.SURG_ITS ---
Subjective Subjective Patient had several large bowel movements yesterday with the lactulose. Patient did pull out NG. Currently awaiting speech to evaluate for diet. Objective Data Objective Data Vital Signs: Vital Signs Temp Pulse Resp BP Pulse Ox 97.8 F 64 18 118/67 98 02/15/22 03:17 02/15/22 07:49 02/15/22 07:49 02/15/22 03:17 02/15/22 07:49 Oxygen Flow Rate (L/min) 5 Oxygen Delivery Method Nasal Cannula Weight: 203 lb 0.732 oz Body Mass Index (BMI) 29.2 Intake & Output: Intake and Output for Last 24 Hours 02/13/22 02/14/22 02/15/22 23:59 23:59 23:59 Intake Total 1320 / 1320 1680 / 1680 100 / 100 Output Total 500 / 500 750 / 750 Balance 820 / 820 930 / 930 100 / 100 Lab / Micro Data Result Diagrams: 02/14/22 06:20 02/15/22 05:35 Labs: Laboratory Results - last 24 hr 02/15/22 05:35: Sodium 148 H, Potassium 3.7, Chloride 105, Carbon Dioxide 41.0 H , Anion Gap 2 L, BUN 29 H, Creatinine 0.82, Estim Creat Clear Calc 113.68, Est GFR (MDRD) Af Amer 124, Est GFR (MDRD) Non-Af 103, BUN/Creatinine Ratio 35.2 H, Glucose 118 H, Calcium 8.9, Phosphorus 3.0 Micro: Microbiology 02/13/22 11:50 Sputum, Induced/Lukens Gram Stain - Final 02/13/22 11:50 Sputum, Induced/Lukens Respiratory Culture - Preliminary Presumptive C albicans 02/10/22 11:15 Blood Culture (Wb) - Right Hand Blood Culture - Final Escherichia coli 02/12/22 02:35 Sputum, Expectorated/Coughed Gram Stain - Final 02/12/22 02:35 Sputum, Expectorated/Coughed Respiratory Culture - Final Presumptive C albicans 02/10/22 11:10 Blood Culture (Wb) - Left Wrist Blood Culture - Preliminary No growth in 48 hours. 02/10/22 12:30 Urine Catheter - Catheter Urine Culture - Final Presumptive E. coli 02/10/22 12:30 Urine, Clean Catch Legionella Antigen - Final 02/10/22 12:30 Urine, Clean Catch Streptococcus pneumoniae Antigen (M - Final 02/10/22 15:50 Mucosa - Nasopharyngeal Respiratory Panel (PCR) - Final 02/10/22 12:30 Nasal Secretion SARS-CoV-2 & FLU Antigen (Rapid) - Final Radiography Diagnostic Testing: Radiology Impression Chest X-Ray 02/14/22 12:00 IMPRESSION: Enteric tube ends in the mid gastric body. Cardiomegaly with mild pulmonary vascular congestion. Small right-sided pleural effusion. Bilateral lower lung airspace opacities, due to atelectasis, aspiration, or pneumonia. No pneumothorax. Multilevel thoracolumbar spondylosis. Electronically Signed: Jose Daniel Mccabe MD at 12:35 EDT Reading Location ID and State: [facility] / [place] Tel , Service support , KUB X-Ray 02/14/22 12:00 IMPRESSION: Enteric tube ends in the mid gastric body. Cardiomegaly with mild pulmonary vascular congestion. Small right-sided pleural effusion. Bilateral lower lung airspace opacities, due to atelectasis, aspiration, or pneumonia. No pneumothorax. Multilevel thoracolumbar spondylosis. . Electronically Signed: Jose Daniel Mccabe MD at 12:37 EDT , Physical Exam Const no apparent distress Cardio regular rate GI soft to palpation and non-tender GI Narrative: Minimal abdominal distention Assessment & Plan Assessment/Plan (1) Abdominal distension: (2) Constipation: PLAN: Okay for diet per surgery-- patient is waiting for speech evaluation. Constipation?patient several bowel movements with the lactulose. Patient will need to be on a bowel regimen on DC. Continue IV antibiotics for UTI and pneumonia per primary Azalia Elliott M.D. Pager: [phone] [facility] [address] [place] [address], [facility], [address] [place] [id number] Office: [phone] Charges/Coding Visit Charges Inpatient E&M: 86209 Subs Hosp L2
[2022-02-15] MEDS: Fluticasone 0.05% 1 SPRAY NASAL.SRY NASAL (10:42)
[2022-02-15] MEDS: Tolterodine Tartrate 4 MG CAP.SA PO (10:42)
[2022-02-15] MEDS: Polyethylene Glycol 3350 17 GM PACKET PO (10:43)
[2022-02-15] MEDS: Enoxaparin 40 MG/0.4 ML Syringe SC (10:43)
--- NOTE | 2022-02-15 11:16 | PN.HOSP_ITS ---
Subjective Subjective No significant issues overnight. Patient did pull out his NG tube early this morning. Is having good bowel movements and abdomen is much flatter with no further distention. Patient is anxious to eat and has been cleared to do so by general surgery. Remains on oxygen however we have weaned him to 3 L nasal cannula with oxygen saturations at 94%. Objective Data Objective Data Vital Signs: Vital Signs Temp Pulse Resp BP Pulse Ox 97.9 F 66 15 139/75 H 94 02/15/22 09:42 02/15/22 09:42 02/15/22 11:16 02/15/22 09:42 02/15/22 11:16 Oxygen Flow Rate (L/min) 3 Oxygen Delivery Method Nasal Cannula Weight: 92.1 kg Body Mass Index (BMI) 29.2 Intake & Output: Intake and Output for Last 24 Hours 02/13/22 02/14/22 02/15/22 23:59 23:59 23:59 Intake Total 1320 / 1320 1680 / 1680 150 / 150 Output Total 500 / 500 750 / 750 Balance 820 / 820 930 / 930 150 / 150 Lab / Micro Data Result Diagrams: 02/14/22 06:20 02/15/22 05:35 Labs: Laboratory Results - last 24 hr 02/15/22 05:35: Sodium 148 H, Potassium 3.7, Chloride 105, Carbon Dioxide 41.0 H , Anion Gap 2 L, BUN 29 H, Creatinine 0.82, Estim Creat Clear Calc 113.68, Est GFR (MDRD) Af Amer 124, Est GFR (MDRD) Non-Af 103, BUN/Creatinine Ratio 35.2 H, Glucose 118 H, Calcium 8.9, Phosphorus 3.0 Micro: Microbiology 02/13/22 11:50 Sputum, Induced/Lukens Gram Stain - Final 02/13/22 11:50 Sputum, Induced/Lukens Respiratory Culture - Preliminary Presumptive C albicans 02/10/22 11:15 Blood Culture (Wb) - Right Hand Blood Culture - Final Escherichia coli 02/12/22 02:35 Sputum, Expectorated/Coughed Gram Stain - Final 02/12/22 02:35 Sputum, Expectorated/Coughed Respiratory Culture - Final Presumptive C albicans 02/10/22 11:10 Blood Culture (Wb) - Left Wrist Blood Culture - Preliminary No growth in 48 hours. 02/10/22 12:30 Urine Catheter - Catheter Urine Culture - Final Presumptive E. coli 02/10/22 12:30 Urine, Clean Catch Legionella Antigen - Final 02/10/22 12:30 Urine, Clean Catch Streptococcus pneumoniae Antigen (M - Final 02/10/22 15:50 Mucosa - Nasopharyngeal Respiratory Panel (PCR) - Final 02/10/22 12:30 Nasal Secretion SARS-CoV-2 & FLU Antigen (Rapid) - Final Radiography Diagnostic Testing: Radiology Impression Chest X-Ray 02/14/22 12:00 IMPRESSION: Enteric tube ends in the mid gastric body. Cardiomegaly with mild pulmonary vascular congestion. Small right-sided pleural effusion. Bilateral lower lung airspace opacities, due to atelectasis, aspiration, or pneumonia. No pneumothorax. Multilevel thoracolumbar spondylosis. Electronically Signed: Jose Daniel Mccabe MD at 12:35 EDT Reading Location ID and State: [facility] / [place] Tel , Service support , KUB X-Ray 02/14/22 12:00 IMPRESSION: Enteric tube ends in the mid gastric body. Cardiomegaly with mild pulmonary vascular congestion. Small right-sided pleural effusion. Bilateral lower lung airspace opacities, due to atelectasis, aspiration, or pneumonia. No pneumothorax. Multilevel thoracolumbar spondylosis. . Electronically Signed: Jose Daniel Mccabe MD at 12:37 EDT Reading Location ID and State: [facility] / [place] Tel , Service support , Physical Exam Const alert Constitutional Narrative: Upper middle-aged white male sitting up in a chair at the bedside, nursing assistance and nurse at the bedside, patient appears comfortable and nontoxic, very pleasant Exam Limitations: other limitations Nutritional Appearance: overweight HEENT head/scalp atraumatic and moist oral mucous membranes HEENT Narrative: NG tube has been removed Head and Scalp: normocephalic Resp no retractions and no use of accessory muscles Resp Narrative: Few scattered rhonchi but improved, tachypnea has resolved Auscultation: rhonchi; Negative for crackles, rales or wheezes Cardio regular rate, regular rhythm, S1 normal heart sound, S2 normal heart sound, no murmurs, no rub, no gallops, no clicks and no JVD GI normal to inspection, nondistended, normoactive bowel sounds, soft to palpation, non-tender, non-distended and hepatosplenomegaly Extremity no clubbing, cyanosis or edema Peripheral Pulses: Yes pulses 2+ throughout Neuro moves all extremities and no focal motor deficits Neuro Narrative: Alert and appropriately reactive, follows all commands and moves all extremities symmetrically Sensorium / Orientation: awake and alert Psych Psych Narrative: Patient is calm and shows no signs of aggression or behavioral issues Assessment & Plan Assessment/Plan (1) Abdominal distension: (2) Constipation: (3) Pneumonia: QUALIFIERS: Pneumonia type: due to unspecified organism Laterality: bilateral Lung location: lower lobe of lung Qualified Code(s): J18.9 - Pneumonia, unspecified organism (4) Acute UTI: (5) Hyperammonemia: (6) Acute respiratory failure with hypoxia and hypercapnia: (7) Metabolic encephalopathy: (8) E coli bacteremia: PLAN: Acute hypoxic and hypercapnic respiratory failure secondary to suspected aspiration pneumonia -Patient has been weaned to 3 L nasal cannula -Sputum shows only yeast -Mental status has improved -Continue pulmonary toilet as able -Patient's baseline mental status is somewhat impairing his ability to participate and Pep therapy and incentive spirometry -Continue antibiotics but will narrow to Unasyn to cover aspiration -Viral PCR is negative -Legionella and strep pneumo antigens are negative -COVID and flu antigens are negative E. coli bacteremia -Organism appears to be the same that in the urine based on sensitivities -We will narrow to Unasyn -Day 5 of 7 for antibiotics Acute urinary tract infection-E. coli -Continue antibiotics day 4 of 7 -Organism is pansensitive -If patient needs continued therapy will convert to oral antibiotics once GI function has improved Acute on chronic constipation with obstipation -General surgery is following -Patient with good bowel movements overnight and abdomen is now flat -Okay for p.o. diet once cleared by speech -We will continue lactulose 20 mg twice daily -Continue MiraLAX -patient will need good bowel regimen upon discharge Hypophosphatemia -Repeat in a.m. Toxic/metabolic encephalopathy -Resolved -Suspect multifactorial related to medication/respiratory acidosis/hypera mmonemia Hyperammonemia -Resolved -Patient's mother states that the Depakote was predominantly used for behavioral issues -No behavioral issues currently -We will hold Depakote indefinitely Autism with cognitive impairment/history of seizure disorder -Continue clozapine -Restart Mirapex -Continue to hold Depakote -Continue to hold Cogentin -Per mother, Depakote was used for behavioral issues and his seizure disorder has not been a problem for a long time -If patient were to have seizures off Depakote I would recommend starting Keppra Obesity -Recommend weight loss -Complicates treatment, prognosis, outcomes -Suspect patient may have some baseline obstructive sleep apnea DVT prophylaxis -SCDs -Lovenox CODE STATUS -DNR CCA with no intubation as per discussion from hospitalist, mother, and the patient's brother who is an transportation maintenance specialist in [place] Father is at the bedside this morning and overall plan of care and progress were discussed with him Charges/Coding Visit Charges Inpatient E&M: 70741 Subs Hosp L2
--- NOTE | 2022-02-15 11:52 | CASEMGMT ---
TRACE asked TCU to re-review patient as he will have some medication changes. They are unable to take patient. TRACE faxed referral to Laisha at [facility]. Await response. Rose Butts MANAGER OF MARKETING ROBERTA
--- NOTE | 2022-02-15 14:53 | CASEMGMT ---
SW received a call from [facility] and they need PT/OT from today. SW faxed today's PT/OT notes. Rose GRANADOS
--- NOTE | 2022-02-15 16:22 | CASEMGMT ---
TRACE received e-mail confirmation from Laisha at [facility] that they can accept patient. TRACE will notify patient's parents. Plan: d/c to [facility] when medically ready. Rose GRANADOS
[2022-02-15] MEDS: Lactulose 20 GM/30 ML UDC PO (21:49)
[2022-02-16] VITALS (16 sets, daily range): BP systolic 120–141; BP diastolic 68–79; PULSE 58–94; RESP 17–20; TEMP 36.2–36.6; O2SAT 87–100
[2022-02-16] MEDS: guaiFENesin 10 ML UDC (200MG/10ML) 20 ML PO ×6 (01:54→23:25)
[2022-02-16 06:51] LABS: Mean Corp Hgb Conc 31.6 g/dL (32-36); Mean Corpuscular Hgb 30.1 pg (27.0-32.0); Mean Corpuscular Volume 95.2 fL (80-94); Mean Platelet Vol. 9.8 fl (6.2-12.0); POSITIVE COUNT YES; POSITIVE MORPHOLOGY YES; Platelet Count 221 K/mm3 (150-450); RBC Distribution Width CV 13.8 % (11.6-14.6); RBC Distribution Width SD 48.4 fl (35.1-43.9); Red Blood Count 3.99 M/mm3 (4.6-6.2); White Blood Count 6.6 K/mm3 (4.4-11.0)
[2022-02-16 06:52] LABS: Differential Indicated MANUAL DIFF
[2022-02-16] MEDS: Ipratropium/Albuterol Sulfate 3 ML AMPUL.NEB INHALATION ×3 (06:52→19:35)
[2022-02-16 07:10] LABS: Lymphocyte 10 % (19-41); Monocyte 7 % (0-10); Myelocyte 2 % (0-0); Neutrophil-Segmented 81 % (47-70); Platelet Estimate ADEQUATE (ADEQ); Total Cells Counted 100 (MANUAL DIFF)
[2022-02-16 07:11] LABS: Absolute Lymphocyte Count 0.66 X10^3/uL (0.83-4.51); Absolute Neutrophil Count 5.3 X10^3/uL (2.0-7.7); Lymphocyte # 0.66 X10^3/ul (0.83-4.51); Neutrophil # 5.34 X10^3/uL (2.7-7.7); Red Cell Morphology NORM C+C NORMAL (NORM C&C)
[2022-02-16 07:13] LABS: Anion Gap 3 (5-15); BUN 30 mg/dL (7-18); BUN/Creat Ratio 35.9 RATIO (10-20); Calcium,Total 9.2 mg/dL (8.5-10.1); Chloride 110 mmol/L (98-107); Creatinine, Serum 0.84 mg/dL (0.70-1.30); EST Glomerular Filtration Rate 101 mL/min (>60); Est Glom Filt Rate - Afr Amer 122 mL/min (>60); Estimated Creatinine Clearance 110.97 ml/min; Glucose 122 mg/dL (74-106); Potassium 3.5 mmol/L (3.5-5.1); Sodium Level 149 mmol/L (136-145)
[2022-02-16] MEDS: 0.9% Saline Lock 10 ML Syringe IV ×3 (07:59→23:50)
[2022-02-16] MEDS: Polyethylene Glycol 3350 17 GM PACKET PO (09:02)
[2022-02-16] MEDS: Fluticasone 0.05% 1 SPRAY NASAL.SRY NASAL (09:02)
[2022-02-16] MEDS: Enoxaparin 40 MG/0.4 ML Syringe SC (09:04)
[2022-02-16] MEDS: Lactulose 20 GM/30 ML UDC PO ×2 (09:04→23:18)
[2022-02-16] MEDS: Tolterodine Tartrate 4 MG CAP.SA PO (09:04)
--- NOTE | 2022-02-16 11:01 | CASEMGMT ---
TRACE faxed updated progress note to [facility] and also e-mailed Laisha letting her know patient will be ready tomorrow. Yesterday TRACE faxed PT,OT, and ST notes from 02-15-22. TRACE called patient's parents and left a voice mail letting them know [facility]CU cannot take patient, but [facility] can. TRACE also let them know patient will likely be ready for discharge tomorrow. TRACE also called Abi Galvan, patient's service operator with [facility] [employer]. TRACE let her know patient will likely be discharged tomorrow and he will be going to [facility]. Plan: d/c to [facility] under skilled level of care. Rose Butts SPRIGGER ROBERTA
--- NOTE | 2022-02-16 11:22 | CASEMGMT ---
TRACE received a return call from patient's dad. TRACE let him know TCU cannot take patient, but [facility] can. TRACE let him know patient may be ready tomorrow. He thanked TRACE for the update. Plan: d/c to [facility] GRANADOS
--- NOTE | 2022-02-16 11:47 | PN.HOSP_ITS ---
Subjective Subjective No issues overnight. Patient continues to have bowel movements. Oral intake has been adequate. Patient appears a little dry and I have encouraged liquids. Sodium has trended up some. Remains on oxygen but has been weaned to 2 L nasal cannula with further weaning trials planned for today. Objective Data Objective Data Vital Signs: Vital Signs Temp Pulse Resp BP Pulse Ox 97.8 F 94 18 141/79 H 94 02/16/22 10:14 02/16/22 10:14 02/16/22 10:14 02/16/22 10:14 02/16/22 10:14 Oxygen Flow Rate (L/min) 2 Oxygen Delivery Method Nasal Cannula Weight: 90.8 kg Body Mass Index (BMI) 29.2 Intake & Output: Intake and Output for Last 24 Hours 02/14/22 02/15/22 02/16/22 23:59 23:59 23:59 Intake Total 1680 / 1680 1114 / 1114 310 / 310 Output Total 750 / 750 Balance 930 / 930 1114 / 1114 310 / 310 Lab / Micro Data Result Diagrams: 02/16/22 05:26 02/16/22 05:26 Labs: Laboratory Results - last 24 hr 02/16/22 05:26: WBC 6.6, RBC 3.99 L, Hgb 12.0 L, Hct 38.0 L, MCV 95.2 H, MCH 30.1, MCHC 31.6 L, RDW Std Deviation 48.4 H, RDW Coeff of Carlos 13.8, Plt Count 22 1, MPV 9.8, Neut % (Auto) Not Reportable, Absolute Neuts (auto) 5.3, Absolute Lymphs (auto) 0.66 L, Total Counted 100, Neutrophils % (Manual) 81 H, Lymphocytes % (Manual) 10 L, Monocytes % (Manual) 7, Myelocytes % 2 H, Diff Path Review May , Platelet Estimate ADEQUATE, RBC Morphology NORM C+C 02/16/22 05:26: Sodium 149 H, Potassium 3.5, Chloride 110 H, Carbon Dioxide 36.0 H, Anion Gap 3 L, BUN 30 H, Creatinine 0.84, Estim Creat Clear Calc 110.97, Est GFR (MDRD) Af Amer 122, Est GFR (MDRD) Non-Af 101, BUN/Creatinine Ratio 35.9 H, Glucose 122 H, Calcium 9.2 Micro: Microbiology 02/13/22 11:50 Sputum, Induced/Lukens Gram Stain - Final 02/13/22 11:50 Sputum, Induced/Lukens Respiratory Culture - Final Presumptive C albicans 02/10/22 11:10 Blood Culture (Wb) - Left Wrist Blood Culture - Final No growth in 5 days. 02/10/22 11:15 Blood Culture (Wb) - Right Hand Blood Culture - Final Escherichia coli 02/12/22 02:35 Sputum, Expectorated/Coughed Gram Stain - Final 02/12/22 02:35 Sputum, Expectorated/Coughed Respiratory Culture - Final Presumptive C albicans 02/10/22 12:30 Urine Catheter - Catheter Urine Culture - Final Presumptive E. coli 02/10/22 12:30 Urine, Clean Catch Legionella Antigen - Final 02/10/22 12:30 Urine, Clean Catch Streptococcus pneumoniae Antigen (M - F inal 02/10/22 15:50 Mucosa - Nasopharyngeal Respiratory Panel (PCR) - Final 02/10/22 12:30 Nasal Secretion SARS-CoV-2 & FLU Antigen (Rapid) - Final Physical Exam Const alert Constitutional Narrative: Upper middle-aged white male sitting upright in bed, father at bedside, patient is very talkative and interactive, appropriate and asking for water Exam Limitations: other limitations Nutritional Appearance: overweight HEENT head/scalp atraumatic and moist oral mucous membranes Head and Scalp: normocephalic Resp normal respiratory effort, no retractions, no use of accessory muscles and clear to auscultation bilaterally Auscultation: Negative for crackles, rales or wheezes Cardio regular rate, regular rhythm, S1 normal heart sound, S2 normal heart sound, no murmurs, no rub, no gallops, no clicks and no JVD GI normal to inspection, nondistended, normoactive bowel sounds, soft to palpation, non-tender, non-distended and hepatosplenomegaly Extremity no clubbing, cyanosis or edema Peripheral Pulses: Yes pulses 2+ throughout Neuro moves all extremities and no focal motor deficits Neuro Narrative: Alert and appropriately reactive, follows all commands and moves all extremities symmetrically, speech is soft but clear Sensorium / Orientation: awake and alert Psych Psych Narrative: Patient continues to be calm and shows no signs of aggression or behavioral issues Assessment & Plan Assessment/Plan (1) Abdominal distension: (2) Constipation: (3) Pneumonia: QUALIFIERS: Pneumonia type: due to unspecified organism Laterality: bilateral Lung location: lower lobe of lung Qualified Code(s): J18.9 - Pneumonia, unspecified organism (4) Acute UTI: (5) Hyperammonemia: (6) Acute respiratory failure with hypoxia and hypercapnia: (7) Metabolic encephalopathy: (8) E coli bacteremia: PLAN: Acute hypoxic and hypercapnic respiratory failure secondary to suspected aspiration pneumonia -Resolving--> patient has been weaned to 2 L nasal cannula with oxygen satur ations at 95 to 97% -Will try to wean oxygen to off today -Sputum shows only yeast -Mental status is back to baseline -Continue pulmonary toilet as able -Patient's baseline mental status is somewhat impairing his ability to participate and Pep therapy and incentive spirometry -Continue antibiotics but will narrow to Unasyn to cover aspiration -Viral PCR is negative -Legionella and strep pneumo antigens are negative -COVID and flu antigens are negative E. coli bacteremia -Organism appears to be the same that in the urine based on sensitivities -We will narrow to Unasyn -Day 6 of 7 for antibiotics Acute urinary tract infection-E. coli -Continue antibiotics day 6 of 7 -Organism is pansensitive -If patient needs continued therapy will convert to oral antibiotics once GI function has improved Hypernatremia -Suspect patient is taking in less free water given he is having thickened liquids at this time -Start D5W at 75 cc/h for 12 hours -Repeat sodium in the a.m. Acute on chronic constipation with obstipation -General surgery is following -Patient with good bowel movements overnight and abdomen is now flat -We will continue lactulose 20 mg twice daily -Continue MiraLAX -patient will need good bowel regimen upon discharge Hypophosphatemia -Repeat in a.m. 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 Hopeful for discharge tomorrow. Charges/Coding Visit Charges Inpatient E&M: 88543 Subs Hosp L2
[2022-02-16 11:55] LABS: Bedside Glucose 97 mg/dL (74-106)
[2022-02-16 13:02] LABS: Pathologist Review Reviewed
[2022-02-16] MEDS: levETIRAcetam 500 MG Tablet PO (23:21)
[2022-02-17] VITALS (21 sets, daily range): BP systolic 104–125; BP diastolic 56–88; PULSE 57–89; RESP 18–32; TEMP 35.8–36.6; O2SAT 91–100
--- NOTE | 2022-02-17 04:07 | PCM.PN.BLA ---
Progress Note Patient lethargic. Seen at bedside. Respond to sternal rub. Heart sounds S1, S2 present. LCTA Acute Encephalopathy Consider escalating dose of clozapine Check ammonia Check TSH if not checked in last 3 months. Get X-ray if none in last 24 hours Check ABG
--- NOTE | 2022-02-17 04:11 | EKG12_ITS ---
Test Reason : AMS Blood Pressure : / mmHG Vent. Rate : 063 BPM Atrial Rate : 063 BPM P-R Int : 134 ms QRS Dur : 142 ms QT Int : 424 ms P-R-T Axes : -06 -22 029 degrees QTc Int : 433 ms Normal sinus rhythm Right bundle branch block Abnormal ECG When compared with ECG of 10-FEB-2022 11:30, No significant change was found Confirmed by HOUSTON MAYA, STEFFANIE ([id number]), legal editor ELIE PARRA ([id number]) on 02/22/2022 12:25:29 PM Referred By: LEDY Confirmed By:STEFFANIE CONRAD MD
--- NOTE | 2022-02-17 04:15 | RAD_ITS ---
INDICATION: confusion EXAMINATION: Frontal view of the chest COMPARISON: Chest x-ray from February 14, 2022. FINDINGS: Frontal view of the chest was obtained. The enteric tube has been removed. The cardiac silhouette is mildly enlarged. Mild patchy opacities in the lower lungs bilaterally are similar to the prior exam. Trace bilateral pleural effusions. No pneumothorax. RAD/Chest 1 View (Portable) IMPRESSION: Mild patchy opacities in the lower lungs bilaterally may represent atelectasis and/or infection and are similar to the prior exam. Electronically Signed: Ellis Fairbanks MD at 5:49 EDT ,
[2022-02-17 04:31] LABS: Allen Test Positive; Base Excess 12 mmol/L (-2 to +2); Bicarbonate 37.2 mmol/L (22-26); Blood Gas Specimen Type ART; FI02 28; O2 Delivery Device Cannula; PO2 86 mmHG (75-100); SITE R Radial; SO2 95 % (95-99); Total Carbon Dioxide 39 mmol/L; pCO2 68.4 mmHg (35-45); pH 7.34 (7.35-7.45)
[2022-02-17 04:59] LABS: Hemoglobin 10.9 g/dL (13.0-16.5); Mean Corp Hgb Conc 31.1 g/dL (32-36); Mean Corpuscular Hgb 29.3 pg (27.0-32.0); Mean Corpuscular Volume 94.1 fL (80-94); Mean Platelet Vol. 9.4 fl (6.2-12.0); POSITIVE COUNT YES; POSITIVE MORPHOLOGY YES; Platelet Count 239 K/mm3 (150-450); RBC Distribution Width CV 13.3 % (11.6-14.6); RBC Distribution Width SD 45.9 fl (35.1-43.9); Red Blood Count 3.72 M/mm3 (4.6-6.2); White Blood Count 5.6 K/mm3 (4.4-11.0)
[2022-02-17 05:22] LABS: Anion Gap 1 (5-15); BUN 21 mg/dL (7-18); BUN/Creat Ratio 36.6 RATIO (10-20); Calcium,Total 8.4 mg/dL (8.5-10.1); Chloride 104 mmol/L (98-107); Creatinine, Serum 0.57 mg/dL (0.70-1.30); EST Glomerular Filtration Rate 155 mL/min (>60); Est Glom Filt Rate - Afr Amer 188 mL/min (>60); Estimated Creatinine Clearance 163.54 ml/min; Glucose 121 mg/dL (74-106); Magnesium 2.2 mg/dL (1.6-2.6); Potassium 3.5 mmol/L (3.5-5.1); Sodium Level 143 mmol/L (136-145)
[2022-02-17 05:49] LABS: Differential Indicated MANUAL DIFF
[2022-02-17 06:06] LABS: Eosinophil 1 % (0-5); Lymphocyte 13 % (19-41); Metamyelocyte 2 % (0-1); Monocyte 9 % (0-10); Myelocyte 1 % (0-0); Neutrophil-Band 1 % (0-5); Neutrophil-Segmented 73 % (47-70); Platelet Estimate ADEQUATE (ADEQ); Red Cell Morphology NORM C+C NORMAL (NORM C&C); Total Cells Counted 100 (MANUAL DIFF)
[2022-02-17 06:07] LABS: Absolute Neutrophil Count 4.2 X10^3/uL (2.0-7.7); Neutrophil # 4.15 X10^3/uL (2.7-7.7)
[2022-02-17 06:08] LABS: Absolute Lymphocyte Count 0.73 X10^3/uL (0.83-4.51); Lymphocyte # 0.73 X10^3/ul (0.83-4.51)
[2022-02-17] MEDS: Ipratropium/Albuterol Sulfate 3 ML AMPUL.NEB INHALATION ×3 (07:11→19:20)
[2022-02-17 11:28] LABS: Pathologist Review Reviewed
[2022-02-17 12:01] LABS: Bedside Glucose 112 mg/dL (74-106)
--- NOTE | 2022-02-17 12:51 | CASEMGMT ---
Addendum entered by Rose Butts 02/17/22 14:32: [facility] e[facility]mail[facility] that they have a cpap on hand and will have it ready for patient. Rose GRANADOS Original Note: Patient is not ready today. TRACE notified Laisha at [facility] via e-mail that patient is not ready today, but possibly over the weekend. TRACE also notified [facility] that patient will need cpap. SW faxed the cpap settings and let her know they will need to order one as patient does not have one. Plan: d/c to [facility] when medically ready. Green sheet on chart. Rose GRANADOS
[2022-02-17 13:06] LABS: Base Excess 9 mmol/L (-2 to +2); Bicarbonate 34.4 mmol/L (22-26); Blood Gas Specimen Type ART; FI02 40; Mode CPAP/PS; PEEP 12; PO2 61 mmHG (75-100); SITE L Radial; SO2 89 % (95-99); Total Carbon Dioxide 36 mmol/L; pH 7.37 (7.35-7.45)
[2022-02-17] MEDS: Enoxaparin 40 MG/0.4 ML Syringe SC (14:02)
[2022-02-17] MEDS: Lactulose 20 GM/30 ML UDC 200 GM RC (14:18)
--- NOTE | 2022-02-17 14:35 | PCM.PN.HOSP ---
Subjective Subjective Patient developed increased somnolence overnight and an ABG and ammonia level were reobtained. Both show recurrent hyperammonemia and mild respiratory acidosis. I do suspect the patient is sleep apnea baseline. We have placed him on noninvasive ventilation. He has been awaking throughout the day and upon my reevaluation was much more interactive than he was this morning upon my evaluation. This is without treating his elevated ammonia level. Objective Data Objective Data Vital Signs: Vital Signs Temp Pulse Resp BP Pulse Ox 97.6 F L 61 32 H 114/66 98 02/17/22 10:00 02/17/22 12:36 02/17/22 12:36 02/17/22 10:00 02/17/22 10:00 Oxygen Flow Rate (L/min) 2 Oxygen Delivery Method CPAP Weight: 93 kg Body Mass Index (BMI) 29.2 Intake & Output: Intake and Output for Last 24 Hours 02/15/22 02/16/22 02/17/22 23:59 23:59 23:59 Intake Total 1114 / 1114 2622 / 2622 334 / 334 Balance 1114 / 1114 2622 / 2622 334 / 334 Lab / Micro Data Result Diagrams: 02/17/22 04:50 02/17/22 04:50 Labs: Laboratory Results - last 24 hr 02/17/22 03:44: POC Glucose 112 H 02/17/22 04:50: Sodium 143, Potassium 3.5, Chloride 104, Carbon Dioxide 38.0 H, Anion Gap 1 L, BUN 21 H, Creatinine 0.57 L, Estim Creat Clear Calc 163.54, Est GFR (MDRD) Af Amer 188, Est GFR (MDRD) Non-Af 155, BUN/Creatinine Ratio 36.6 H, Glucose 121 H, Calcium 8.4 L, Phosphorus 3.0, Magnesium 2.2 02/17/22 04:50: WBC 5.6, RBC 3.72 L, Hgb 10.9 L, Hct 35.0 L, MCV 94.1 H, MCH 29.3, MCHC 31.1 L, RDW Std Deviation 45.9 H, RDW Coeff of Carlos 13.3, Plt Count 239, MPV 9.4, Neut % (Auto) Not Reportable, Absolute Neuts (auto) 4.2, Absolute Lymphs (auto) 0.73 L, Total Counted 100, Neutrophils % (Manual) 73 H, Band Neutrophils % 1, Lymphocytes % (Manual) 13 L, Monocytes % (Manual) 9, Eosinophils % (Manual) 1, Metamyelocytes % 2 H, Myelocytes % 1 H, Diff Path Review Reviewed, Platelet Estimate ADEQUATE, RBC Morphology NORM C+C 02/17/22 04:50: Ammonia 46.0 H Micro: Microbiology 02/13/22 11:50 Sputum, Induced/Lukens Gram Stain - Final 02/13/22 11:50 Sputum, Induced/Lukens Respiratory Culture - Final Presumptive C albicans 02/10/22 11:10 Blood Culture (Wb) - Left Wrist Blood Culture - Final No growth in 5 days. 02/10/22 11:15 Blood Culture (Wb) - Right Hand Blood Culture - Final Escherichia coli 02/12/22 02:35 Sputum, Expectorated/Coughed Gram Stain - Final 02/12/22 02:35 Sputum, Expectorated/Coughed Respiratory Culture - Final Presumptive C albicans 02/10/22 12:30 Urine Catheter - Catheter Urine Culture - Final Presumptive E. coli 02/10/22 12:30 Urine, Clean Catch Legionella Antigen - Final 02/10/22 12:30 Urine, Clean Catch Streptococcus pneumoniae Antigen (M - Final 02/10/22 15:50 Mucosa - Nasopharyngeal Respiratory Panel (PCR) - Final 02/10/22 12:30 Nasal Secretion SARS-CoV-2 & FLU Antigen (Rapid) - Final ABG Data ABG results: ABG 02/17/22 02/17/22 04:23 12:59 Specimen Type ART ART Sample Site R Radial L Radial pH 7.34 L 7.37 Bicarbonate Actual 37.2 H 34.4 H Total CO2 39 36 Base Excess 12 H 9 H O2 Saturation 95 89 L O2 % 28 40 ABG pCO2 68.4 H* 60.0 H ABG pO2 86 61 L [place] Test Positive O2 Delivery Device Cannula Vent Mode CPAP/PS POC PEEP 12 Crit Call To/Read Back Yes Blood Gas Notified Whom dr arevalo Radiography Diagnostic Testing: Radiology Impression Chest X-Ray 02/17/22 04:15 IMPRESSION: Mild patchy opacities in the lower lungs bilaterally may represent atelectasis and/or infection and are similar to the prior exam. Electronically Signed: Ellis Fairbanks MD at 5:49 EDT , Physical Exam Const alert Constitutional Narrative: Upper middle-aged white male lying in bed somnolent on noninvasive ventilation, reevaluation this afternoon showed that he was much more awake than previously, nontoxic appearing Exam Limitations: other limitations Nutritional Appearance: overweight HEENT head/scalp atraumatic and moist oral mucous membranes Head and Scalp: normocephalic Resp normal respiratory effort, no retractions, no use of accessory muscles and clear to auscultation bilaterally Auscultation: Negative for crackles, rales, rhonchi or wheezes Cardio regular rate, regular rhythm, S1 normal heart sound, S2 normal heart sound, no murmurs, no rub, no gallops, no clicks and no JVD GI normal to inspection, nondistended, normoactive bowel sounds, soft to palpation, non-tender, non-distended and hepatosplenomegaly GI Narrative: Distended, bowel sounds are hyperactive Extremity no clubbing, cyanosis or edema Peripheral Pulses: Yes pulses 2+ throughout Neuro moves all extremities and no focal motor deficits Neuro Narrative: Sleepy and fairly obtunded this morning however much more awake this afternoon upon my reevaluation, moves all extremities without deficit with and no focal deficits noted Assessment & Plan Assessment/Plan (1) Abdominal distension: (2) Constipation: (3) Pneumonia: QUALIFIERS: Pneumonia type: due to unspecified organism Laterality: bilateral Lung location: lower lobe of lung Qualified Code(s): J18.9 - Pneumonia, unspecified organism (4) Acute UTI: (5) Hyperammonemia: (6) Acute respiratory failure with hypoxia and hypercapnia: (7) Metabolic encephalopathy: (8) E coli bacteremia: PLAN: Acute hypoxic and hypercapnic respiratory failure secondary to suspected aspiration pneumonia -Patient was on room air and then was placed on 2 L overnight -Now on noninvasive ventilation for hypercapnia -Oxygenates well when he is awake -Suspect baseline sleep apnea and will discharge with CPAP for naps and at night and recommend outpatient polysomnography be arranged -Sputum shows only yeast -Mental status is suppressed compared to the last 2 to 3 days -Continue pulmonary toilet as able -Patient's baseline mental status is somewhat impairing his ability to participate and Pep therapy and incentive spirometry -Continue antibiotics but will narrow to Unasyn to cover aspiration -Viral PCR is negative -Legionella and strep pneumo antigens are negative -COVID and flu antigens are negative E. coli bacteremia -Organism appears to be the same that in the urine based on sensitivities -We will narrow to Unasyn -Day 7 of 7 for antibiotics Acute urinary tract infection-E. coli -Continue antibiotics day 7 of 7 -Organism is pansensitive -If patient needs continued therapy will convert to oral antibiotics once GI function has improved Hypernatremia -Resolved Acute on chronic constipation with obstipation -General surgery has signed off -Patient with good bowel movements overnight and abdomen is now flat -Continue lactulose but increase to 20 3 times daily with hyperammonemia -Continue MiraLAX -patient will need good bowel regimen upon discharge Hypophosphatemia -Repeat in a.m. 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--> his Depakote was discontinued indefinitely secondary to hyperammonemia and Keppra was initiated 500 mg twice daily however the patient developed hyperammonemia again --> Keppra was therefore discontinued and the patient was placed on Vimpat 50 mg twice daily Obesity -Recommend weight loss -Complicates treatment, prognosis, outcomes -Suspect patient may have some baseline obstructive sleep apnea DVT prophylaxis -SCDs -Lovenox CODE STATUS -DNR CCA with no intubation as per discussion from hospitalist, mother, and the patient's brother who is an maintenance services dispatcher in [place] If we can turn the patient around clinically in the next 24 hours I still anticipate discharge tomorrow however with depressed mental status related to hypercapnia and hyper ammonemia we are unable to discharge him today. Charges/Coding Visit Charges Inpatient E&M: 00323 Subs Hosp L2
[2022-02-17] MEDS: Glycerin/Hypromellose/PEG400 15 ml Bottle 2 DRP EACH EYE (21:43)
[2022-02-17] MEDS: Lactulose 20 GM/30 ML UDC PO (21:46)
[2022-02-17] MEDS: guaiFENesin 10 ML UDC (200MG/10ML) 20 ML PO (21:49)
[2022-02-17] MEDS: Lacosamide 50 MG Tablet PO (21:59)
[2022-02-17] MEDS: 0.9% Saline Lock 10 ML Syringe IV (22:09)
[2022-02-18] VITALS (17 sets, daily range): BP systolic 116–141; BP diastolic 66–93; PULSE 56–91; RESP 16–32; TEMP 35.6–36.7; O2SAT 92–98
[2022-02-18 06:25] LABS: Anion Gap 2 (5-15); BUN 18 mg/dL (7-18); BUN/Creat Ratio 29.9 RATIO (10-20); Calcium,Total 8.8 mg/dL (8.5-10.1); Chloride 104 mmol/L (98-107); EST Glomerular Filtration Rate 147 mL/min (>60); Est Glom Filt Rate - Afr Amer 178 mL/min (>60); Estimated Creatinine Clearance 155.36 ml/min; Glucose 114 mg/dL (74-106); Sodium Level 144 mmol/L (136-145)
[2022-02-18] MEDS: guaiFENesin 10 ML UDC (200MG/10ML) 20 ML PO ×5 (06:32→21:10)
[2022-02-18] MEDS: Glycerin/Hypromellose/PEG400 15 ml Bottle 2 DRP EACH EYE ×3 (06:32→21:13)
[2022-02-18] MEDS: Lactulose 20 GM/30 ML UDC PO ×4 (06:32→23:22)
--- NOTE | 2022-02-18 06:51 | MRI_ITS ---
STUDY: MRI ABDOMEN WITH AND WITHOUT CONTRAST REASON FOR EXAM: Male, [address] TECHNIQUE: Standardized fat and water weighted pulse sequences were obtained in all 3 orthogonal planes post contrast administration. IV 18ML DOTAREM was administered for the contrast portion of the examination. COMPARISON: CT dated 02/12/2022. FINDINGS: The visualized lung bases demonstrate moderate infiltrates. The visualized portions of the heart are within normal limits. Normal liver. Normal gallbladder and extrahepatic biliary system. Normal spleen. Normal pancreas. Right adrenal gland normal. There is a left adrenal mass in the cord with prior CT findings. This measures 2.44 cm transverse by 2.31 cm AP. On the out of phase imaging this demonstrates signal slightly lower than that of the spleen. This nodule demonstrates peripheral contrast enhancement. This likely represents a left adrenal adenoma. Adrenal primary or metastatic lesion would be considered less likely. Normal right kidney. Normal left kidney. Normal visualized stomach. Normal small intestine. There is moderate stool throughout the imaged portion of the colon consistent with fecal stasis. The appendix is visualized and appears normal. Normal abdominal aorta. Normal inferior vena cava. Normal retroperitoneum. Normal abdominal wall. Normal osseous structures. MRI/MRI Abd WITH and W/O Contrast IMPRESSION: Findings in the cord with recent CT. Moderate bibasilar infiltrates. Left adrenal nodule measuring 2.44 cm transverse by 2.31 cm AP. This demonstrates low signal on out of phase imaging suggestive of adrenal adenoma or myelolipoma. Adrenal primary or metastatic lesion would be considered unlikely. Moderate stool throughout the colon consistent with fecal stasis. Electronically Signed: Abe Ocampo MD, CHUCK at 11:28 EDT ,
[2022-02-18] MEDS: Ipratropium/Albuterol Sulfate 3 ML AMPUL.NEB INHALATION ×3 (07:02→19:34)
[2022-02-18] MEDS: Tolterodine Tartrate 4 MG CAP.SA PO (07:58)
[2022-02-18] MEDS: Enoxaparin 40 MG/0.4 ML Syringe SC (07:59)
[2022-02-18] MEDS: Fluticasone 0.05% 1 SPRAY NASAL.SRY NASAL (07:59)
[2022-02-18] MEDS: Polyethylene Glycol 3350 17 GM PACKET PO (07:59)
[2022-02-18] MEDS: Lacosamide 50 MG Tablet PO ×2 (08:10→21:12)
--- NOTE | 2022-02-18 11:27 | PN.HOSP_ITS ---
Subjective Subjective Issues overnight. The patient was much more alert and awake last night eating dinner without any difficulties. Same was for this morning. However at the time my evaluation, he was quite sleepy but had gotten up quite early. 3 bowel movements documented yesterday. Objective Data Objective Data Vital Signs: Vital Signs Temp Pulse Resp BP Pulse Ox 97.5 F L 64 18 116/84 H 93 02/18/22 07:47 02/18/22 09:30 02/18/22 09:30 02/18/22 07:47 02/18/22 09:30 Oxygen Flow Rate (L/min) 2 Oxygen Delivery Method Nasal Cannula Weight: 94.7 kg Body Mass Index (BMI) 29.2 Intake & Output: Intake and Output for Last 24 Hours 02/16/22 02/17/22 02/18/22 23:59 23:59 23:59 Intake Total 2621 / 2621 1148 / 1148 282 / 282 Balance 2621 / 2621 1148 / 1148 282 / 282 Lab / Micro Data Result Diagrams: 02/17/22 04:50 02/18/22 05:29 Labs: Laboratory Results - last 24 hr 02/17/22 03:44: POC Glucose 112 H 02/17/22 04:50: Diff Path Review Reviewed 02/18/22 05:29: Ammonia 46.0 H 02/18/22 05:29: Sodium 144, Potassium 4.0, Chloride 104, Carbon Dioxide 38.0 H, Anion Gap 2 L, BUN 18, Creatinine 0.60 L, Estim Creat Clear Calc 155.36, Est GFR (MDRD) Af Amer 178, Est GFR (MDRD) Non-Af 147, BUN/Creatinine Ratio 29.9 H, Glucose 114 H, Calcium 8.8 Micro: Microbiology 02/13/22 11:50 Sputum, Induced/Lukens Gram Stain - Final 02/13/22 11:50 Sputum, Induced/Lukens Respiratory Culture - Final Presumptive C albicans 02/10/22 11:10 Blood Culture (Wb) - Left Wrist Blood Culture - Final No growth in 5 days. 02/10/22 11:15 Blood Culture (Wb) - Right Hand Blood Culture - Final Escherichia coli 02/12/22 02:35 Sputum, Expectorated/Coughed Gram Stain - Final 02/12/22 02:35 Sputum, Expectorated/Coughed Respiratory Culture - Final Presumptive C albicans 02/10/22 12:30 Urine Catheter - Catheter Urine Culture - Final Presumptive E. coli 02/10/22 12:30 Urine, Clean Catch Legionella Antigen - Final 02/10/22 12:30 Urine, Clean Catch Streptococcus pneumoniae Antigen (M - Final 02/10/22 15:50 Mucosa - Nasopharyngeal Respiratory Panel (PCR) - Final 02/10/22 12:30 Nasal Secretion SARS-CoV-2 & FLU Antigen (Rapid) - Final ABG Data ABG results: ABG 02/17/22 12:59 Specimen Type ART Sample Site L Radial pH 7.37 Bicarbonate Actual 34.4 H Total CO2 36 Base Excess 9 H O2 Saturation 89 L O2 % 40 ABG pCO2 60.0 H ABG pO2 61 L Vent Mode CPAP/PS POC PEEP 12 Physical Exam Const Constitutional Narrative: Upper middle-aged white male lying in bed somnolent sitting up in bed, awakens to verbal and tactile stimulus however he falls back to sleep very quickly and easily, was napping but was not on noninvasive ventilation Exam Limitations: other limitations Nutritional Appearance: overweight HEENT head/scalp atraumatic and moist oral mucous membranes Head and Scalp: normocephalic Resp normal respiratory effort, no retractions, no use of accessory muscles and clear to auscultation bilaterally Auscultation: Negative for crackles, rales, rhonchi or wheezes Cardio regular rate, regular rhythm, S1 normal heart sound, S2 normal heart sound, no murmurs, no rub, no gallops, no clicks and no JVD GI normal to inspection, nondistended, normoactive bowel sounds, soft to palpation, non-tender, non-distended and hepatosplenomegaly GI Narrative: Abdominal remains soft and nondistended with normal bowel sounds Extremity no clubbing, cyanosis or edema Peripheral Pulses: Yes pulses 2+ throughout Neuro moves all extremities and no focal motor deficits Neuro Narrative: Sleepy this morning but moves all extremities spontaneously without focal deficits Assessment & Plan Assessment/Plan (1) Abdominal distension: (2) Constipation: (3) Pneumonia: QUALIFIERS: Pneumonia type: due to unspecified organism Laterality: bilateral Lung location: lower lobe of lung Qualified Code(s): J18.9 - Pneumonia, unspecified organism (4) Acute UTI: (5) Hyperammonemia: (6) Acute respiratory failure with hypoxia and hypercapnia: (7) Metabolic encephalopathy: (8) E coli bacteremia: PLAN: Acute hypoxic and hypercapnic respiratory failure secondary to suspected aspiration pneumonia -This morning and yesterday the patient was on 2 L nasal cannula with oxygen saturations at 94 to 98% -Oxygenates well when he is awake however desats with sleep and I suspect he has obstructive sleep apnea -Suspect baseline sleep apnea and will discharge with CPAP for naps and at night and recommend outpatient polysomnography be arranged -Sputum shows only yeast -Mental status remains intermittently suppressed -Continue pulmonary toilet as able -Patient's baseline mental status is somewhat impairing his ability to participate and Pep therapy and incentive spirometry -Continue antibiotics but will narrow to Unasyn to cover aspiration -Viral PCR is negative -Legionella and strep pneumo antigens are negative -COVID and flu antigens are negative E. coli bacteremia -Resolved -Patient has completed 7 days of antibiotics Acute urinary tract infection-E. coli -Patient has completed 7 days of antibiotics -Resolved Acute on chronic constipation with obstipation -General surgery has signed off -Patient with good bowel movements overnight and abdomen is now flat -Continue lactulose but increase to 20 3 times daily with hyperammonemia -Continue MiraLAX -patient will need good bowel regimen upon discharge Toxic/metabolic encephalopathy -Fluctuates -Ammonia level is back up -Will check EEG to rule out underlying seizure activity -Suspect multifactorial related to medication/respiratory acidosis/hyperammonemia Abnormal findings on CT abdomen pelvis -2.6 cm left adrenal mass and small lesion in the lateral aspect of the right kidney were both identified on CT of the abdomen pelvis performed at admission -MRI has been recommended--> we will try but baseline autism/developmental disability may limit yield -Discussed with father Hyperammonemia -Ammonia level remains 47 today -Mental status was improved -Increase lactulose to 4 times daily -We will hold Depakote indefinitely Autism with cognitive impairment/history of seizure disorder -Continue clozapine but reduced evening dose to 100 -Continue Mirapex -Father indicates that the patient does have periodic partial complex seizure s--> his Depakote was discontinued indefinitely secondary to hyperammonemia and Keppra was initiated 500 mg twice daily however the patient developed hyperammonemia again --> Keppra was therefore discontinued and the patient was placed on Vimpat 50 mg twice daily -We will check EEG with intermittent somnolence Suspected SIXTO -We will discharge with CPAP at night and with naps -Recommend outpatient polysomnography Obesity -Recommend weight loss -Complicates treatment, prognosis, outcomes -Suspect patient may have some baseline obstructive sleep apnea DVT prophylaxis -SCDs -Lovenox CODE STATUS -DNR CCA with no intubation as per discussion from hospitalist, mother, and the patient's brother who is an signal tower director in [place] Father was updated with regards to current plan of care.
--- NOTE | 2022-02-18 12:09 | TELEMED_ITS ---
[facility] Tele[facility] has confirmed receipt of a request for visit. This document confirms receipt of the order initiating the consult. To find the results of the consultation, please view the patient's reports for the scanned Telemed Consult.
--- NOTE | 2022-02-18 12:31 | CM.ED ---
Addendum entered by Dana Maki 02/18/22 17:57: HENS completed and faxed to [facility]. Addendum entered by Dana Maki 02/18/22 14:09: W was emailed will likely discharge tomorrow. Original Note: Social Work Note SW spoke with physician, plan is for pt to discharge to [facility] tomorrow. SW to update [facility]. Dana Maki STEAM FITTER SUPERVISOR MAINTENANCE, HIGHWAY INSPECTOR
--- NOTE | 2022-02-18 14:17 | PCM.TXEXTCAR ---
Diet 02/15/22 10:29 Diet: Regular - General Food consistency:: Pureed Liquid Consistency:: Regular/Thin Type of Dietary Supplement:: 4oz ES w/B+L;ChocES pud@D Is pt able to select menu?: Yes Diet Comments: meds w/ puree, liquids by TEASPOON ONLY, 1:1 total feed Routine Orders/Code Status Enema Type: Fleetz Enema Frequency: Daily PRN Suppository Type: Dulcolax 10mg Suppository Frequency: Daily PRN O2 Liters per Minute: CPAP at HS and with Naps O2 Frequency: PRN Keep PO Greater than or Equal to (%): 92 Routine Lab Work: - (ammonia PRN for somnolence) Code Status: Full Code Therapies Physical Therapy: Eval and Treat Occupational Therapy: Eval and Treat Speech Therapy: Eval and Treat Problem/Diagnosis (1) Abdominal distension: Status: Acute (2) Constipation: Status: Acute (3) Pneumonia: Status: Acute (4) Acute UTI: Status: Acute (5) Hyperammonemia: Status: Acute (6) Acute respiratory failure with hypoxia and hypercapnia: Status: Acute (7) Metabolic encephalopathy: Status: Acute (8) E coli bacteremia: Status: Acute Allergies/Procedures Done in Hospital Allergies No Known Allergies Allergy (Verified 07/08/19 19:01) Procedures: 2-D Echocardiogram and - (CT of the abdomen pelvis/MRI of the abdomen/CT of the brain) Type of Care/Length of Stay Estimated LOS: Convalescent Care Less Than 30 days Type of Care Needed: Skilled Rehab Potential: Good Prognosis: Good Additional Orders/Day of Discharge Additional Orders: Patient needs to have 2-3 bowel movements daily Day of Discharge: 02/19/22 Dietary and Speech Recommendations Dietitian Recommendations/Changes: Regular diet as medically able with consistency/texture as per CHEESEMAKER HELPER. Will adjust ONS to 4oz Ensure Enlive w/ breakfast and lunch, chocolate ensure pudding w/ dinner. Discharge Plan Admission Admit Date/Time: 02/10/22 13:51 Attending Provider: Padmaja Jimenez Primary Care Provider: Abe Moralez Consulting Providers: Lala Carpenter ; Azalia Elliott ; Naresh Roberson Discharge Orders/Prescriptions Prescriptions: No Action divalproex 250 MG tablet 250 mg PO BIDCM RF: 0 polyethylene glycol 3350 17 GM powder in packet 17 g PO DAILY RF: 0 clozapine 100 MG tablet 100 mg PO DAILY RF: 0 clozapine 100 MG tablet 200 mg PO QHS RF: 0 divalproex 125 MG tablet 125 mg PO QHS RF: 0 fluticasone propionate 1 SPRAY spray,suspension 1 spray NASAL DAILY RF: 0 Systane (PF) 1 EACH dropperette 1 ea OP BID PRN (Reason: eye irritation) RF: 0 docusate sodium 100 mg capsule 200 mg PO BID RF: 0 doxazosin 4 mg tablet 4 mg PO QHS RF: 0 Myrbetriq 25 mg tablet extended release 24 hr 25 mg PO DAILY RF: 0 erythromycin 5 mg/gram (0.5 %) ointment 1 applic RIGHT EYE QHS RF: 0 Referrals / Follow Up: Abe Moralez MD [Primary Care Provider] - Alicia Hugo NP, [facility] [Nurse Practitioner] - 03/10/22 9:45 am
[2022-02-18] MEDS: 0.9% Saline Lock 10 ML Syringe IV (14:32)
[2022-02-19] VITALS (14 sets, daily range): BP systolic 113–133; BP diastolic 64–76; PULSE 57–67; RESP 14–37; TEMP 35.1–36.6; O2SAT 91–98
[2022-02-19 03:50] LABS: Allen Test Positive; Base Excess 10 mmol/L (-2 to +2); Bicarbonate 35.6 mmol/L (22-26); Blood Gas Specimen Type ART; Comment CPAP 12; FI02 30; O2 Delivery Device CPAP; PO2 73 mmHG (75-100); SITE L Radial; SO2 93 % (95-99); Total Carbon Dioxide 38 mmol/L; pH 7.37 (7.35-7.45)
[2022-02-19 05:43] LABS: Absolute Lymphocyte Count 0.64 X10^3/uL (0.83-4.51); Absolute Neutrophil Count 6.3 X10^3/uL (2.0-7.7); Basophil# 0.02 X10^3/uL; Basophil% 0.3 % (0-1); Eosinophil# 0.12 X10^3/uL; Eosinophils% 1.6 % (0-5); Hematocrit 32.8 % (40-54); Hemoglobin 10.7 g/dL (13.0-16.5); Lymphocyte # 0.64 X10^3/ul (0.83-4.51); Lymphocyte % 8.3 % (19-41); Mean Corp Hgb Conc 32.6 g/dL (32-36); Mean Corpuscular Hgb 30.1 pg (27.0-32.0); Mean Corpuscular Volume 92.4 fL (80-94); Mean Platelet Vol. 9.5 fl (6.2-12.0); Monocyte# 0.48 X10^3/uL; Monocyte% 6.2 % (0-10); NRBC Flagged by Analyzer 0 % (0-5); Neutrophil # 6.28 X10^3/uL (2.7-7.7); Neutrophil % 81.1 % (47-70); Platelet Count 223 K/mm3 (150-450); RBC Distribution Width CV 13.1 % (11.6-14.6); RBC Distribution Width SD 44.3 fl (35.1-43.9); Red Blood Count 3.55 M/mm3 (4.6-6.2); White Blood Count 7.7 K/mm3 (4.4-11.0)
[2022-02-19 06:07] LABS: Anion Gap 1 (5-15); BUN 17 mg/dL (7-18); BUN/Creat Ratio 26.7 RATIO (10-20); Calcium,Total 8.8 mg/dL (8.5-10.1); Chloride 105 mmol/L (98-107); Creatinine, Serum 0.64 mg/dL (0.70-1.30); EST Glomerular Filtration Rate 138 mL/min (>60); Est Glom Filt Rate - Afr Amer 167 mL/min (>60); Estimated Creatinine Clearance 145.65 ml/min; Glucose 123 mg/dL (74-106); Sodium Level 142 mmol/L (136-145)
[2022-02-19] MEDS: Glycerin/Hypromellose/PEG400 15 ml Bottle 2 DRP EACH EYE (06:49)
[2022-02-19] MEDS: Ipratropium/Albuterol Sulfate 3 ML AMPUL.NEB INHALATION (07:14)
--- NOTE | 2022-02-19 07:50 | CPS ---
pt placed on 2 lpm saturation 97%. Nurse aware of Bipap removal to nasal cannual and informed we may need to place him back on Bipap if not raysa cannula
[2022-02-19] MEDS: Fluticasone 0.05% 1 SPRAY NASAL.SRY NASAL (10:15)
[2022-02-19] MEDS: Polyethylene Glycol 3350 17 GM PACKET PO (10:15)
[2022-02-19] MEDS: Tolterodine Tartrate 4 MG CAP.SA PO (10:15)
[2022-02-19] MEDS: Enoxaparin 40 MG/0.4 ML Syringe SC (10:15)
[2022-02-19] MEDS: guaiFENesin 10 ML UDC (200MG/10ML) 20 ML PO (10:17)
[2022-02-19] MEDS: Lacosamide 50 MG Tablet PO (10:20)
[2022-02-19] MEDS: 0.9% Saline Lock 10 ML Syringe IV (10:42)
[2022-02-19] MEDS: Lactulose 20 GM/30 ML UDC PO (10:43)
--- NOTE | 2022-02-19 10:55 | PCM.DC.SUM ---
Providers Date of Admission: 02/10/22 Date of Discharge: 02/19/22 Primary Care Physician: Dr. Abe Moralez MD Consultations 02/12/22 12:47 Consult: General Surgery Routine Consulting Provider: Azalia Elliott Reason for Consult: abdominal distension, colonic ileus EMERGENT Consult: No MD Notified: Yes Date Notified: 02/12/22 Time Notified: 12:47 Method of Notification: Verbal Reason For Visit: HYPOXIA, CAP, UTI Diagnosis Discharge Diagnosis (1) Abdominal distension: Status: Acute Code(s): R14.0 - Abdominal distension (gaseous) (2) Constipation: Status: Acute Code(s): K59.00 - Constipation, unspecified (3) Pneumonia: Status: Acute Code(s): J18.9 - Pneumonia, unspecified organism Qualifiers: Laterality: bilateral Lung location: lower lobe of lung Pneumonia type: due to unspecified organism Qualified Code(s): J18.9 - Pneumonia, unspecified organism (4) Acute UTI: Status: Acute Code(s): N39.0 - Urinary tract infection, site not specified (5) Hyperammonemia: Status: Acute Code(s): E72.20 - Disorder of urea cycle metabolism, unspecified (6) Acute respiratory failure with hypoxia and hypercapnia: Status: Acute Code(s): J96.01 - Acute respiratory failure with hypoxia; J96.02 - Acute respiratory failure with hypercapnia (7) Metabolic encephalopathy: Status: Acute Code(s): G93.41 - Metabolic encephalopathy (8) E coli bacteremia: Status: Acute Code(s): R78.81 - Bacteremia; B96.20 - Unspecified Escherichia coli [E. coli] as the cause of diseases classified elsewhere Medications at Discharge Home Medications Systane (PF) 1 ea OP BID PRN 07/24/16 clozapine 100 mg PO DAILY 07/24/16 clozapine 200 mg PO QHS 07/24/16 fluticasone propionate 1 spray NASAL DAILY 07/24/16 polyethylene glycol 3350 17 g PO DAILY 07/24/16 Myrbetriq 25 mg PO DAILY 02/10/22 docusate sodium 200 mg PO BID 02/10/22 doxazosin 4 mg PO QHS 02/10/22 erythromycin 1 applic RIGHT EYE QHS 02/10/22 acetaminophen [Tylenol] 650 mg PO Q4H PRN PRN #0 tab 02/19/22 lacosamide [Vimpat] 50 mg PO BID #0 tab 02/19/22 lactulose 20 g PO Q6 #0 ml 02/19/22 Hospital Course Procedures 2-D Echocardiogram and - (Abdominal MRI/CT brain/CT abdomen pelvis) Summary of Care Provided Minutes Spent on Discharge: 45 Hospital Course: Mr. Lawson alarcon is a 56-year-old white male who presented from a skilled nursing to [facility] emergency department on 02/10/2022 with complaints of fatigue, malaise, hypoxia and a moist cough. 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 This prompted emergency department evaluation. Staff at his facility noted that he was fine the day prior and seemed to be breathing with ease. There was no documented history of fever, chills, nausea, vomiting, emesis, dysphagia or any recent ill contacts. In the emergency department and admission his temperature was 97.6 his heart rate was 67, his blood pressure was 122/75, his respiratory rate was 21-29, and his oxygen saturation was 91 to 93% on room air. His CBC showed a elevated white count at 14.1. His hemoglobin was normal and he had mild thrombocytopenia with a platelet count of 141,000. His coags were unremarkable. His CMP was unremarkable. Lactic acid was obtained and was 1.4. A BNP was 57.3 and a urinalysis was obtained and showed dehydration and was consistent with urinary tract infection. Chest x-ray showed cardiomegaly with findings suspicious for possibly mild CHF and superimposed bibasilar atelectasis. His EKG was sinus rhythm with a right bundle branch block and no evidence of acute ischemia. A rapid influenza and COVID were negative. He was given a breathing treatment and started on Rocephin azithromycin by the emergency department and admitted to the PCU. An echocardiogram was obtained given the chest x-ray which showed ejection fraction of 60% and no evidence of diastolic dysfunction. The patient was pancultured. He evidently developed some abdominal distention and a CT of the abdomen pelvis was performed with a consultation to general surgery. The CT showed large amount of stool throughout the entire colon and it was felt the patient would need an aggressive bowel regimen initially with enemas. An NG was placed for medications and the patient was currently n.p.o. per speech. Per discussion with his father he had a history of significant obstruction related to constipation that required transfer to [facility] a long time ago which was related to toxin buildup secondary to severe constipation. He does have chronic constipation issues at baseline. Overnight on 01/24/2022 the patient became more somnolent and obtunded and an ABG and ammonia levels obtained. Initial ammonia was have been normal however there is p.o. ammonia level was found to be elevated at 65. His ABG showed mild respiratory acidosis related to CO2 retention and based on his blood gas it appears that he has chronic CO2 retention and I suspect he has sleep apnea at baseline. We were unable to pace him on noninvasive ventilation secondary to his NG being in place but he was treated with lactulose for the hyperammonemia and his Depakote was discontinued. CT of his abdomen and pelvis also remarked on a lesion on his adrenal gland as well as his kidney and therefore an MRI of his abdomen was recommended and obtained. The MRI showed moderate bibasilar infiltrates with a left adrenal nodule measuring 2.44 cm x 2.31 cm which demonstrated a low signal that was suggestive of adrenal adenoma versus myelolipoma and cyst moderate stool throughout the colon with fecal stasis. Urine culture was positive for E. coli as was 1 of 2 blood cultures. He was treated for a course of 7 days to cover his bacteremia as well as aspiration pneumonia as he did have an emesis event related to his severe constipation during his hospitalization. Antibiotics were completed prior to discharge. We were preparing for discharge on 02/18/2022 however the patient had recurrent somnolence at which time a repeat ammonia level and blood gas were obtained. His ammonia level had gone up slightly and it appeared that his stool output had declined therefore we increased his lactulose back to 4 times a day and his ammonia level declined within 24 hours with much improved mental status. He was maintained on CPAP at night to help with his suspected sleep apnea. It was recommended that he have outpatient polysomnography after discharge however he is being discharged to a skilled facility at which he will be able to continue CPAP and this order has been placed for 12 cmH2O at at bedtime and with naps. He needs to have 2-3 bowel movements daily with his lactulose and this needs to be titrated accordingly. He is being discharged on lactulose 4 times a day as well as MiraLAX and he was replaced back on his docusate. His bowel regimen needs to be aggressive as he has resultant constipation easily. He was able to be weaned to room air prior to discharge and a as needed oxygen order was placed for the facility. He needs to follow-up with his primary care physician within 2 weeks and an appointment was made for the nurse practitioner at the pulmonary office on 03/10/2022 at 9:45 AM for the patient to be scheduled for a sleep study and have further evaluation with regards to his apnea. I suspect his fluctuant ammonia levels are related to decreased colonic transit port of stool and buildup of toxins however we did discontinue his home Depakote which was used for seizures and placed him on Vimpat which is a machinery cleaner drug and has less side effects specifically no association with hyperammonemia. Speech therapy during his hospitalization was cleared for pur?ed and teaspoon of liquid with one-on-one supervision with continued physical, occupational, and speech therapy after discharge. With this constipation we do need to push oral fluid intake with him and hopefully continue speech therapy will allow progression with swallowing resulting in improved oral intake and decreased risk of aspiration. He was discharged in stable condition to a [facility]dc facility on 02/19/2022. His father was updated with regards to the above prior to discharge. Discharge diagnoses: Acute hypoxic on acute on chronic hypercapnic respiratory failure Aspiration pneumonia-resolved E. coli UTI-resolved E. coli bacteremia-resolved Acute on chronic constipation with obstipation Toxic/metabolic encephalopathy secondary to hyperammonemia-resolved Adrenal nodule-benign Hyperammonemia-resolved Autism with cognitive impairment History of seizure disorder Suspected SIXTO Obesity Physical Exam Const alert Constitutional Narrative: Upper middle-aged white male sitting up in bed awake, very communicative and interactive. Speech therapy is at the bedside, patient is nontoxic and appears well. Currently on oxygen but oxygen saturations are good and the oxygen has been weaned to off prior to discharge General Appearance: cooperative, comfortable, well kempt and well developed Orientation / Consciousness: awake Exam Limitations: other limitations Nutritional Appearance: overweight HEENT normocephalic, head/scalp atraumatic, hearing grossly normal bilaterally and moist oral mucous membranes HEENT Narrative: Edentulous, Mallampati 2-3, no thrush Eyes PERRL, EOMs intact bilaterally and conjunctivae normal Eyes Narrative: No scleral icterus Neck no lymphadenopathy, supple, no JVD and no carotid bruits Neck Narrative: Trachea midline no thyroid enlargement Resp normal respiratory effort, no retractions, no use of accessory muscles and clear to auscultation bilaterally Auscultation: Negative for crackles, rales, rhonchi or wheezes Cardio regular rate, regular rhythm, S1 normal heart sound, S2 normal heart sound, no murmurs, no rub, no gallops, no clicks and no JVD GI normal to inspection, nondistended, normoactive bowel sounds, soft to palpation, non-tender, non-distended and hepatosplenomegaly GI Narrative: Abdominal remains soft and nondistended with normal bowel sounds Extremity normal to inspection and no clubbing, cyanosis or edema Extremity Narrative: 2+ pedal pulses Skin no rashes or lesions noted, no wounds, skin turgor normal and no jaundice Neuro CN's II-XII intact bilaterally, moves all extremities and no focal motor deficits Neuro Narrative: Vocal quality is soft but intelligible, no focal deficits, generalized weakness Sensorium / Orientation: awake and alert Psych Psych Narrative: Patient continues to be calm and shows no signs of aggression or behavioral issues Weight / BMI Weight Weight: 95.6 kg Body Mass Index (BMI) 29.2 ABG / Lab / Microbiology Data Result Diagrams: 02/19/22 05:34 02/19/22 05:34 Laboratory: Laboratory Results - last 24 hr 02/19/22 05:34: WBC 7.7, RBC 3.55 L, Hgb 10.7 L, Hct 32.8 L, MCV 92.4, MCH 30.1, MCHC 32.6, RDW Std Deviation 44.3 H, RDW Coeff of Carlos 13.1, Plt Count 223, MPV 9.5, Immature Gran % (Auto) 2.500 H, Neut % (Auto) 81.1 H, Lymph % (Auto) 8.3 L, [place] % (Auto) 6.2, Eos % (Auto) 1.6, Baso % (Auto) 0.3, Absolute Neuts (auto) 6.3, Absolute Lymphs (auto) 0.64 L, Nucleated RBC % 0 02/19/22 05:34: Sodium 142, Potassium 4.0, Chloride 105, Carbon Dioxide 36.0 H, Anion Gap 1 L, BUN 17, Creatinine 0.64 L, Estim Creat Clear Calc 145.65, Est GFR (MDRD) Af Amer 167, Est GFR (MDRD) Non-Af 138, BUN/Creatinine Ratio 26.7 H, Glucose 123 H, Calcium 8.8 02/19/22 05:34: Ammonia 38.0 H Microbiology: Microbiology 02/13/22 11:50 Sputum, Induced/Lukens Gram Stain - Final 02/13/22 11:50 Sputum, Induced/Lukens Respiratory Culture - Final Presumptive C albicans 02/10/22 11:10 Blood Culture (Wb) - Left Wrist Blood Culture - Final No growth in 5 days. 02/10/22 11:15 Blood Culture (Wb) - Right Hand Blood Culture - Final Escherichia coli 02/12/22 02:35 Sputum, Expectorated/Coughed Gram Stain - Final 02/12/22 02:35 Sputum, Expectorated/Coughed Respiratory Culture - Final Presumptive C albicans 02/10/22 12:30 Urine Catheter - Catheter Urine Culture - Final Presumptive E. coli 02/10/22 12:30 Urine, Clean Catch Legionella Antigen - Final 02/10/22 12:30 Urine, Clean Catch Streptococcus pneumoniae Antigen (M - Final 02/10/22 15:50 Mucosa - Nasopharyngeal Respiratory Panel (PCR) - Final 02/10/22 12:30 Nasal Secretion SARS-CoV-2 & FLU Antigen (Rapid) - Final ABG: ABG 02/19/22 03:46 Specimen Type ART Sample Site L Radial pH 7.37 Bicarbonate Actual 35.6 H Total CO2 38 Base Excess 10 H O2 Saturation 93 L O2 % 30 ABG pCO2 62.0 H ABG pO2 73 L [place] Test Positive O2 Delivery Device CPAP Clinical Comments CPAP 12 Radiography Diagnostic Testing: Radiology Impression Abdomen MRI 02/18/22 06:51 IMPRESSION: Findings in the cord with recent CT. Moderate bibasilar infiltrates. Left adrenal nodule measuring 2.44 cm transverse by 2.31 cm AP. This demonstrates low signal on out of phase imaging suggestive of adrenal adenoma or myelolipoma. Adrenal primary or metastatic lesion would be considered unlikely. Moderate stool throughout the colon consistent with fecal stasis. Electronically Signed: Abe Ocampo MD, CHUCK at 11:28 EDT , D/C Instructions Discharge Diet: No restrictions (puree with liquid by teaspoons 1:1 feed at this time) Discharge Activity: Return to Normal Activity Meaningful Use Info Meaningful Use Diagnoses (Choose all that apply): None applicable Discharge Plan Admission Admit Date/Time: 02/10/22 13:51 Primary Reason for Your Visit: Shortness of breath Attending Provider: Padmaja Jimenez Primary Care Provider: Abe Moralez Consulting Providers: Lala Carpenter ; Azalia Elliott ; Naresh Roberson Instructions Additional Instructions / Restrictions: 1. Please push fluid intake as able 2. Goal is for patient to have at least 2 bowel movements daily--> lactulose may need to be titrated to this however we will continue with 4 times daily at discharge 3. Oral diet should consist of pur?e with thin liquids dosed at teaspoonfuls at a time and no straws Discharge Orders/Prescriptions Prescriptions: New acetaminophen [Tylenol] 325 mg Tablet 650 mg PO Q4H PRN PRN (Reason: Fever, pain 1-07/03) Qty: 0 RF: 0 lactulose 20 gram/30 mL Solution 20 g PO Q6 Qty: 0 RF: 0 lacosamide [Vimpat] 50 mg Tablet 50 mg PO BID Qty: 0 RF: 0 Continued polyethylene glycol 3350 17 GM powder in packet 17 g PO DAILY RF: 0 clozapine 100 MG tablet 100 mg PO DAILY RF: 0 clozapine 100 MG tablet 200 mg PO QHS RF: 0 fluticasone propionate 1 SPRAY spray,suspension 1 spray NASAL DAILY RF: 0 Systane (PF) 1 EACH dropperette 1 ea OP BID PRN (Reason: eye irritation) RF: 0 docusate sodium 100 mg capsule 200 mg PO BID RF: 0 doxazosin 4 mg tablet 4 mg PO QHS RF: 0 Myrbetriq 25 mg tablet extended release 24 hr 25 mg PO DAILY RF: 0 erythromycin 5 mg/gram (0.5 %) ointment 1 applic RIGHT EYE QHS RF: 0 Discontinued divalproex 250 MG tablet 250 mg PO BIDCM RF: 0 divalproex 125 MG tablet 125 mg PO QHS RF: 0 Referrals / Follow Up: Abe Moralez MD [Primary Care Provider] - Within 2 Weeks Alicia Hugo NP, [facility] [Nurse Practitioner] - 03/10/22 9:45 am Disposition Disposition (needs filled in before D/C Order can be placed): Home, Self Care Charges/Coding Visit Charges Inpatient E&M: 78122 SNF Disch >30 Min
--- NOTE | 2022-02-19 11:54 | NURSING ---
This RN called multiple times to [facility]. No answer. This RN left voicemail and call back number and let them know pt would be there at 12:30.
--- NOTE | 2022-02-19 13:22 | NURSING ---
This RN gave report to SLICK chavez at [facility].
== END 2022-02-19 12:37 | disposition home or self-care (01) | DRG 177 ==
LOC: ED 13:38 → PCU 14:07
PROVIDERS: Hospitalist; Internal Medicine; Admitting Provider Family Medicine; Emergency Provider Emergency Medicine; PCP Family Medicine; Visit Provider Internal Medicine
DX: J69.0 Pneumonitis due to inhalation of food and vomit (principal); G92.8 Other toxic encephalopathy; J96.21 Acute and chronic respiratory failure with hypoxia; J96.22 Acute and chronic respiratory failure with hypercapnia; E72.20 Disorder of urea cycle metabolism, unspecified; R78.81 Bacteremia; E87.0 Hyperosmolality and hypernatremia; N39.0 Urinary tract infection, site not specified; E87.2 Acidosis; J98.11 Atelectasis; F84.0 Autistic disorder; I50.9 Heart failure, unspecified; G40.909 Epilepsy, unspecified, not intractable, without status epilepticus; E27.8 Other specified disorders of adrenal gland; G31.84 Mild cognitive impairment of uncertain or unknown etiology; B96.20 Unspecified Escherichia coli [E. coli] as the cause of diseases classified elsewhere; D35.00 Benign neoplasm of unspecified adrenal gland; K59.09 Other constipation; G47.33 Obstructive sleep apnea (adult) (pediatric); E83.39 Other disorders of phosphorus metabolism; I45.10 Unspecified right bundle-branch block; N28.9 Disorder of kidney and ureter, unspecified; Z66 Do not resuscitate; E66.9 Obesity, unspecified; Z68.29 Body mass index [BMI] 29.0-29.9, adult; Z79.899 Other long term (current) drug therapy
CPT/HCPCS: 31720; 36415; 36600; 70450; 71045; 74018; 74019; 74177; 74183; 80048; 80053; 80164; 81001; 82140; 82803; 82962; 83605; 83735; 83880; 84100; 84145; 84439; 84443; 84484; 85025; 85610; 85730; 87040; 87070; 87086; 87088; 87186; 87205; 87426; 87428; 87449; 87633; 92526; 92610; 93005; 93306; 94002; 94003; 94640; 94660; 94762; 95819; 97110; 97162; 97165; 97530; 97535; 97802; 99251; 99285; A9575; J7030; Q9957; Q9967; A4216; G0463; J0295; J0696; J1940

== ENCOUNTER → 2022-02-23 | Outpatient (REF) | payer SELFPAY ==
[2022-02-23 09:12] LABS: Absolute Lymphocyte Count 1.11 X10^3/uL (0.83-4.51); Absolute Neutrophil Count 2.8 X10^3/uL (2.0-7.7); Basophil# 0.03 X10^3/uL; Basophil% 0.6 % (0-1); Eosinophil# 0.09 X10^3/uL; Eosinophils% 1.9 % (0-5); Hematocrit 32.1 % (40-54); Hemoglobin 10.4 g/dL (13.0-16.5); Lymphocyte # 1.11 X10^3/ul (0.83-4.51); Lymphocyte % 23.3 % (19-41); Mean Corp Hgb Conc 32.4 g/dL (32-36); Mean Corpuscular Hgb 29.3 pg (27.0-32.0); Mean Corpuscular Volume 90.4 fL (80-94); Mean Platelet Vol. 10.3 fl (6.2-12.0); Monocyte# 0.64 X10^3/uL; Monocyte% 13.4 % (0-10); NRBC Flagged by Analyzer 0 % (0-5); Neutrophil # 2.81 X10^3/uL (2.7-7.7); Neutrophil % 59.1 % (47-70); Platelet Count 249 K/mm3 (150-450); RBC Distribution Width CV 12.7 % (11.6-14.6); RBC Distribution Width SD 41.4 fl (35.1-43.9); Red Blood Count 3.55 M/mm3 (4.6-6.2); White Blood Count 4.8 K/mm3 (4.4-11.0)
[2022-02-23 12:17] LABS: ALB/GLOB Ratio 0.7 RATIO (0.9-2.4); AST(SGOT) 49 U/L (15-37); Alanine Aminotransfer ALT/SGPT 66 U/L (16-61); Albumin, Serum 2.7 g/dL (3.2-5.0); Alkaline Phosphatase 150 U/L (45-117); Anion Gap 4 (5-15); BUN 11 mg/dL (7-18); BUN/Creat Ratio 16.8 RATIO (10-20); Calcium,Total 8.9 mg/dL (8.5-10.1); Chloride 103 mmol/L (98-107); Creatinine, Serum 0.66 mg/dL (0.70-1.30); EST Glomerular Filtration Rate 133 mL/min (>60); Est Glom Filt Rate - Afr Amer 161 mL/min (>60); Globulin 4.1 g/dL (2.2-4.2); Glucose 100 mg/dL (74-106); Potassium 4.1 mmol/L (3.5-5.1); Protein, Total 6.8 g/dL (6.4-8.2); Sodium Level 140 mmol/L (136-145)
== END | disposition home or self-care (01) ==
LOC: OLS.WHLTCC 05:00
PROVIDERS: PCP Family Medicine; Referring Provider Family Medicine; Visit Provider Family Medicine
DX: J18.9 Pneumonia, unspecified organism (principal); J96.01 Acute respiratory failure with hypoxia; N39.0 Urinary tract infection, site not specified; B96.20 Unspecified Escherichia coli [E. coli] as the cause of diseases classified elsewhere
CPT/HCPCS: 36415; 80053; 85025

== ENCOUNTER → 2022-03-03 | Outpatient (REF) | payer SELFPAY ==
[2022-03-03 09:04] LABS: Hematocrit 36.2 % (40-54); Mean Corp Hgb Conc 33.1 g/dL (32-36); Mean Corpuscular Hgb 29.9 pg (27.0-32.0); Mean Platelet Vol. 10.3 fl (6.2-12.0); Platelet Count 292 K/mm3 (150-450); RBC Distribution Width CV 13.8 % (11.6-14.6); RBC Distribution Width SD 44.2 fl (35.1-43.9); Red Blood Count 4.02 M/mm3 (4.6-6.2); White Blood Count 4.1 K/mm3 (4.4-11.0)
[2022-03-03 09:29] LABS: ALB/GLOB Ratio 0.7 RATIO (0.9-2.4); AST(SGOT) 43 U/L (15-37); Alanine Aminotransfer ALT/SGPT 86 U/L (16-61); Albumin, Serum 2.9 g/dL (3.2-5.0); Alkaline Phosphatase 202 U/L (45-117); Anion Gap 4 (5-15); BUN 12 mg/dL (7-18); BUN/Creat Ratio 16.1 RATIO (10-20); Chloride 104 mmol/L (98-107); Creatinine, Serum 0.75 mg/dL (0.70-1.30); EST Glomerular Filtration Rate 115 mL/min (>60); Est Glom Filt Rate - Afr Amer 139 mL/min (>60); Globulin 4.2 g/dL (2.2-4.2); Glucose 99 mg/dL (74-106); Potassium 4.2 mmol/L (3.5-5.1); Protein, Total 7.1 g/dL (6.4-8.2); Sodium Level 140 mmol/L (136-145)
== END | disposition home or self-care (01) ==
LOC: OLS.WHLTCC 05:00
PROVIDERS: PCP Family Medicine; Referring Provider Family Medicine; Visit Provider Family Medicine
DX: J96.01 Acute respiratory failure with hypoxia (principal); J18.9 Pneumonia, unspecified organism; N39.0 Urinary tract infection, site not specified; B96.20 Unspecified Escherichia coli [E. coli] as the cause of diseases classified elsewhere
CPT/HCPCS: 36415; 80053; 85027

== ENCOUNTER → 2022-03-09 | Outpatient (CLI) | payer MEDICARE, MEDICAID, SELFPAY ==
[2022-03-09 12:21] LABS: Absolute Lymphocyte Count 1.43 X10^3/uL (0.83-4.51); Absolute Neutrophil Count 1.9 X10^3/uL (2.0-7.7); Basophil# 0.03 X10^3/uL; Basophil% 0.8 % (0-1); Eosinophil# 0.12 X10^3/uL; Eosinophils% 3.1 % (0-5); Hemoglobin 12.7 g/dL (13.0-16.5); Lymphocyte # 1.43 X10^3/ul (0.83-4.51); Mean Corp Hgb Conc 32.6 g/dL (32-36); Mean Corpuscular Hgb 29.5 pg (27.0-32.0); Mean Corpuscular Volume 90.5 fL (80-94); Mean Platelet Vol. 10.3 fl (6.2-12.0); Monocyte% 10.4 % (0-10); NRBC Flagged by Analyzer 0 % (0-5); Neutrophil # 1.87 X10^3/uL (2.7-7.7); Neutrophil % 48.4 % (47-70); Platelet Count 243 K/mm3 (150-450); RBC Distribution Width CV 14.1 % (11.6-14.6); Red Blood Count 4.31 M/mm3 (4.6-6.2); White Blood Count 3.9 K/mm3 (4.4-11.0)
[2022-03-09 12:41] LABS: AST(SGOT) 16 U/L (15-37); Alanine Aminotransfer ALT/SGPT 43 U/L (16-61); Albumin, Serum 3.3 g/dL (3.2-5.0); Alkaline Phosphatase 221 U/L (45-117); Anion Gap 4 (5-15); BUN 9 mg/dL (7-18); BUN/Creat Ratio 10.4 RATIO (10-20); Chloride 101 mmol/L (98-107); Creatinine, Serum 0.87 mg/dL (0.70-1.30); EST Glomerular Filtration Rate 97 mL/min (>60); Est Glom Filt Rate - Afr Amer 117 mL/min (>60); Globulin 3.4 g/dL (2.2-4.2); Glucose 100 mg/dL (74-106); Potassium 4.3 mmol/L (3.5-5.1); Protein, Total 6.7 g/dL (6.4-8.2); Sodium Level 139 mmol/L (136-145)
== END | disposition home or self-care (01) ==
LOC: LABSPEC 10:27
PROVIDERS: PCP Family Medicine; Referring Provider Psychiatry & Neurology Child & Adolescent Psychiatry; Visit Provider Psychiatry & Neurology Child & Adolescent Psychiatry
DX: Z79.899 Other long term (current) drug therapy (principal)
CPT/HCPCS: 80053; 85025

== ENCOUNTER 2022-03-14 09:44 | Emergency (ER) | payer MEDICARE, MEDICAID, SELFPAY ==
[2022-03-14 09:46] VITALS: BP 125/89; PULSE 67; RESP 18; TEMP 36.4; O2SAT 93; BMI 33.3
--- NOTE | 2022-03-14 10:27 | RAD_ITS ---
STUDY: X-RAY CHEST REASON FOR EXAM: Male, 56 years old. COUGH TECHNIQUE: Single AP portable view of the chest. COMPARISON: 02/17/2010 FINDINGS: Poor inspiration with some bibasilar atelectasis There is no demonstrated pleural abnormality. There is moderate cardiac enlargement. Normal mediastinum and rosa. Normal visualized pulmonary arteries. Normal visualized aortic arch and descending thoracic aorta. Normal visualized thoracic spine. Normal visualized ribs, clavicles, and shoulders. There is no demonstrated abnormality of the visualized soft tissue structures of the upper abdomen. RAD/Chest 1 View (Portable) IMPRESSION: Poor inspiration with some bibasilar atelectasis. Electronically Signed: Tray Avelar MD at 11:05 EDT ,
--- NOTE | 2022-03-14 10:29 | EX.ED.DYSGE1 ---
HPI History of Present Illness Chief Complaint: Cough Informant: parent and mental health staff Narrative Narrative: 56-year-old male brought to the emergency department after being referred here by nurse practitioner. Patient was admitted at the end of January for pneumonia and UTI and was treated [facility] and he left there on the . He went to see primary care today where is felt that he was not over his pneumonia and recommended to come to emergency. skilled nursing staff states that he was lethargic but since mom is walked into the room is awake more. They state that his pulse ox was only around 93% but now is 98%. They note continued cough with sputum production. No fevers. PFSH PFSH Medical History Autism Cognitive impairment Constipation Non-smoker Seizure disorder Seizures Home Medications clozapine 100 mg tablet 100 mg PO DAILY anxiety 07/24/16 [History Last Taken 02/10/22] clozapine 100 mg tablet 200 mg PO QHS anxiety 07/24/16 [History Last Taken 02/09/22] fluticasone propionate 50 mcg/actuation nasal spray,suspension 1 spray DAILY allergies 07/24/16 [History Last Taken 02/10/22] peg 400-propylene glycol (PF) 0.4 %-0.3 % eye drops in a dropperette (Systane (PF)) 1 ea OP BID PRN eye irritation 07/24/16 [History Last Taken Unknown] polyethylene glycol 3350 17 gram oral powder packet 17 g PO DAILY constipation 07/24/16 [History Last Taken 02/10/22] docusate sodium 100 mg capsule 200 mg PO BID constipation 02/10/22 [History Last Taken 02/10/22] doxazosin 4 mg tablet 4 mg PO QHS htn 02/10/22 [History Last Taken 02/09/22] erythromycin 5 mg/gram (0.5 %) eye ointment 1 applic RIGHT EYE QHS eye health 02/10/22 [History Last Taken 02/09/22] mirabegron 25 mg tablet,extended release 24 hr (Myrbetriq) 25 mg PO DAILY bladder 02/10/22 [History Last Taken 02/10/22] acetaminophen 325 mg tablet (Tylenol) 650 mg PO Q4H PRN PRN Fever, pain 1-07/03 #0 tabs 02/19/22 [Rx Last Taken Unknown] lacosamide 50 mg tablet (Vimpat) 50 mg PO BID #0 tabs 02/19/22 [Rx Last Taken Unknown] lactulose 20 gram/30 mL oral solution 20 g (30 mL) PO Q6 #0 mL 02/19/22 [Rx Last Taken Unknown] albuterol sulfate 90 mcg/actuation aerosol inhaler (Ventolin HFA) 2 puff inhalation Q4H PRN PRN Wheezing ##1 03/14/22 [Rx Last Taken Unknown] dextromethorphan-guaifenesin 30 mg-600 mg tablet extended [id number] hr (Mucinex DM) 1 tab PO Q12H PRN cough #14 tabs 03/14/22 [Rx Last Taken Unknown] prednisone 20 mg tablet 60 mg PO DAILY #15 TABLETS 03/14/22 [Rx Last Taken Unknown] Allergy/AdvReac Type Severity Reaction Status Date / Time No Known Allergies Allergy Verified 03/14/22 09:45 Family History Mother Seizures COPD (chronic obstructive pulmonary disease) Father Glaucoma Surgical History History of lingual frenulectomy History of rectal surgery Social History housing: 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 Smoking Status: Never smoker alcohol intake: never substance use type: does not use ROS ROS ED Constitutional Constitutional ED: Denies chills, fever(s) or weight loss Eyes Eyes: Denies change in vision or diplopia ENT ENT ED: Denies ear pain, rhinorrhea or sore throat Cardiovascular Cardiovascular: Denies chest pain, orthopnea, palpitations or racing heartbeat Respiratory/Chest Respiratory/Chest: Reports cough; Denies dyspnea or orthopnea Gastrointestinal Gastrointestinal: Denies abdominal pain, diarrhea, nausea or vomiting Genitourinary Genitourinary ED: Denies dysuria, hematuria or urinary frequency Musculoskeletal Musculoskeletal: Denies arthralgias or myalgias Integumentary Denies abscess or rash Neurologic Neurologic: Denies headache(s) or weakness Psychiatric Psychiatric: Denies anxiety, depression, suicidal ideation or suicidal thoughts Endocrine Endocrinology: Denies polydipsia, polyphagia or polyuria Allergic/Immunologic Allergic/Immunologic ED: Denies mouth swelling, tongue swelling or urticaria EXAM Physical Exam Narrative Exam Narrative: Patient is awake in no acute distress. He is conversant. Const Vital Signs: 03/14/22 09:46 03/14/22 10:09 03/14/22 10:49 Temperature 97.5 F L 97.5 F L Temperature Source Temporal Temporal Pulse Rate 67 67 Respiratory Rate 18 18 Respiratory Effort Short of Breath Respiratory Depth Normal Respiratory Pattern Normal Blood Pressure 125/89 H 125/89 H Blood Pressure Mean 101 Pulse Ox 93 93 Oxygen Delivery Method Room Air Room Air Positive well nourished and well developed General Appearance ED: well developed HEENT Reports normocephalic, head/scalp atraumatic and moist mucous membranes Eyes PERRL and EOMs intact bilaterally Neck no lymphadenopathy, supple and no JVD Resp normal respiratory effort Auscultation: rhonchi; Negative for wheezes Cardio regular rate, regular rhythm and no murmurs GI normal to inspection, nondistended, normoactive bowel sounds and non-tender Palpation: soft Back/Spine no CVA tenderness and normal ROM Extremity normal to inspection General Extremety ED: Negative for edema General Extremity: Negative for edema Neuro CN's II-XII intact bilaterally Sensorium / Orientation: alert Motor Exam: strength 5/5 throughout Psych mental status grossly normal Mood & Affect: Negative for depressed or tearful Skin no rashes or lesions noted and no wounds MDM MDM MDM Narrative Medical decision making narrative: He is awakeMy interpretation of the chest x-ray is no acute infiltrate. White count is 3.5. Patient has been 95 to 98% on the monitor. He has been awake and conversant with me. I think at this point patient will be discharged home. I Hermila write for an inhaler Mucinex and prednisone. Did request PCP follow-up in a week. Return if worsening or concerns Lab Data Attestation: I reviewed the patient's lab results. Labs: Laboratory Results - last 24 hr 03/14/22 03/14/22 10:40 10:40 WBC 3.5 L RBC 4.56 L Hgb 13.6 Hct 40.9 MCV 89.7 MCH 29.8 MCHC 33.3 RDW Std Deviation 48.0 H RDW Coeff of Carlos 14.8 H Plt Count 167 MPV 9.8 Immature Gran % (Auto) 0.600 Neut % (Auto) 53.8 Lymph % (Auto) 32.8 [place] % (Auto) 9.6 Eos % (Auto) 2.6 Baso % (Auto) 0.6 Absolute Neuts (auto) 1.9 L Absolute Lymphs (auto) 1.13 Nucleated RBC % 0 Sodium 140 Potassium 4.1 Chloride 103 Carbon Dioxide 34.0 H Anion Gap 3 L BUN 9 Creatinine 0.78 Estim Creat Clear Calc 122.95 Est GFR (MDRD) Af Amer 133 Est GFR (MDRD) Non-Af 110 BUN/Creatinine Ratio 11.6 Glucose 95 Calcium 9.1 Radiography Diagnostic Testing: Clinical Impression(s) from Imaging Studies Chest X-Ray 03/14/22 10:27 IMPRESSION: Poor inspiration with some bibasilar atelectasis. Electronically Signed: Tray Avelar MD at 11:05 EDT Reading Location ID and State: [address] [place] [address] Tel , Service support , Discharge Plan Triage Chief Complaint: Cough ED Provider: Sharath Rick Dx/Rx/DC Orders Clinical Impression: Bronchitis Instructions: ED Bronchitis, No Antibiotic (Adult) Prescriptions: New albuterol sulfate [Ventolin HFA] 90 mcg/actuation HFA aerosol inhaler 2 puff inhalation Q4H PRN PRN (Reason: Wheezing) Qty: 1 0RF Rx Instructions: Dispense with Spacer prednisone 20 mg tablet 60 mg PO DAILY Qty: 15 0RF Mucinex DM 30-600 mg tablet extended release 12 hr 1 tab PO Q12H PRN (Reason: cough) Qty: 14 0RF No Action polyethylene glycol 3350 17 GM powder in packet 17 g PO DAILY clozapine 100 MG tablet 100 mg PO DAILY clozapine 100 MG tablet 200 mg PO QHS fluticasone propionate 1 SPRAY spray,suspension 1 spray NASAL DAILY Systane (PF) 1 EACH dropperette 1 ea OP BID PRN (Reason: eye irritation) docusate sodium 100 mg capsule 200 mg PO BID Label Comments: TAKE (2) CAPSULES BYCMOUTH TWICE DAILY. doxazosin 4 mg tablet 4 mg PO QHS Myrbetriq 25 mg tablet extended release 24 hr 25 mg PO DAILY erythromycin 5 mg/gram (0.5 %) ointment 1 applic RIGHT EYE QHS acetaminophen [Tylenol] 325 mg Tablet 650 mg PO Q4H PRN PRN (Reason: Fever, pain 1-07/03) Qty: 0 0RF lactulose 20 gram/30 mL Solution 20 g PO Q6 Qty: 0 0RF lacosamide [Vimpat] 50 mg Tablet 50 mg PO BID Qty: 0 0RF Primary Care Provider: Abe Moralez Referrals: Abe Moralez MD [Primary Care Provider] - 1 Week Disposition Disposition: Home, Self Care
[2022-03-14 10:49] VITALS: BP 125/89; PULSE 67; RESP 18; TEMP 36.4; O2SAT 93
[2022-03-14 10:58] LABS: Absolute Lymphocyte Count 1.13 X10^3/uL (0.83-4.51); Absolute Neutrophil Count 1.9 X10^3/uL (2.0-7.7); Basophil# 0.02 X10^3/uL; Basophil% 0.6 % (0-1); Eosinophil# 0.09 X10^3/uL; Eosinophils% 2.6 % (0-5); Hematocrit 40.9 % (40-54); Hemoglobin 13.6 g/dL (13.0-16.5); Lymphocyte # 1.13 X10^3/ul (0.83-4.51); Lymphocyte % 32.8 % (19-41); Mean Corp Hgb Conc 33.3 g/dL (32-36); Mean Corpuscular Hgb 29.8 pg (27.0-32.0); Mean Corpuscular Volume 89.7 fL (80-94); Mean Platelet Vol. 9.8 fl (6.2-12.0); Monocyte# 0.33 X10^3/uL; Monocyte% 9.6 % (0-10); NRBC Flagged by Analyzer 0 % (0-5); Neutrophil # 1.86 X10^3/uL (2.7-7.7); Neutrophil % 53.8 % (47-70); Platelet Count 167 K/mm3 (150-450); RBC Distribution Width CV 14.8 % (11.6-14.6); Red Blood Count 4.56 M/mm3 (4.6-6.2); White Blood Count 3.5 K/mm3 (4.4-11.0)
[2022-03-14 11:08] LABS: Anion Gap 3 (5-15); BUN 9 mg/dL (7-18); BUN/Creat Ratio 11.6 RATIO (10-20); Calcium,Total 9.1 mg/dL (8.5-10.1); Chloride 103 mmol/L (98-107); Creatinine, Serum 0.78 mg/dL (0.70-1.30); EST Glomerular Filtration Rate 110 mL/min (>60); Est Glom Filt Rate - Afr Amer 133 mL/min (>60); Estimated Creatinine Clearance 122.95 ml/min; Glucose 95 mg/dL (74-106); Potassium 4.1 mmol/L (3.5-5.1); Sodium Level 140 mmol/L (136-145)
[2022-03-14 12:32] VITALS: BP 118/73; PULSE 53; RESP 16; O2SAT 98
== END 2022-03-14 12:34 | disposition home or self-care (01) ==
PROVIDERS: Emergency Provider Emergency Medicine; PCP Family Medicine; Visit Provider Emergency Medicine
DX: J40 Bronchitis, not specified as acute or chronic (principal)
CPT/HCPCS: 71045; 80048; 85025; 99284; A4216

== ENCOUNTER 2022-03-31 11:03 | Emergency (ER) | payer MEDICARE, MEDICAID, SELFPAY ==
[2022-03-31 11:04] VITALS: BP 127/81; PULSE 65; RESP 16; TEMP 37; O2SAT 99; BMI 27.1
[2022-03-31 11:17] VITALS: BP 155/99; PULSE 63; RESP 20; O2SAT 94
[2022-03-31 11:18] VITALS: O2SAT 94
--- NOTE | 2022-03-31 11:51 | EDS_ITS ---
HPI HPI - URI History of Present Illness Chief Complaint: Cough Informant: patient Onset/Context/Timing Onset: Month(s) (1) Context: Gradual Onset Timing: Continuous Quality: Wheezing Location: Chest Worsened by: - (Nothing) Relieved by: - (Nothing) Associated Symptoms Associated Symptoms: Positive for Shortness of Breath and Productive Cough; Negative for Nasal Congestion, Headache, Sinus Pressure, Myalgias, Nausea, Vomiting, Diarrhea, Chest Pain, Nonproductive cough or Hemoptysis Narrative Narrative: Patient presents with cough and wheezing that has been getting worse over the past month. Patient recently completed antibiotics for pneumonia. Patient also completed a course of steroids last night. Patient states he feels like it is wheezing in his chest. Patient admits to a cough with some yellow sputum production. Patient has been using inhalers with no improvement. Patient denies any nausea or vomiting. Patient denies any fevers or chills. ROS ROS ED Constitutional Constitutional ED: Denies chills or fever(s) Eyes Eyes: Denies blurry vision or change in vision ENT ENT ED: Denies rhinorrhea or sore throat Cardiovascular Cardiovascular: Denies chest pain or palpitations Respiratory/Chest Respiratory/Chest: Reports cough and dyspnea Gastrointestinal Gastrointestinal: Denies nausea or vomiting Genitourinary Genitourinary ED: Denies dysuria or hematuria Musculoskeletal Musculoskeletal: Denies back pain or neck pain Integumentary Reports rash; Denies abscess Neurologic Neurologic: Denies headache(s) or weakness Allergic/Immunologic Allergic/Immunologic ED: Denies mouth swelling or urticaria PFSH PFSH Medical History Autism Cognitive impairment Constipation Non-smoker Seizure disorder Seizures Home Medications clozapine 100 mg tablet 100 mg PO DAILY anxiety 07/24/16 [History Last Taken 02/10/22] clozapine 100 mg tablet 200 mg PO QHS anxiety 07/24/16 [History Last Taken 02/09/22] fluticasone propionate 50 mcg/actuation nasal spray,suspension 1 spray DAILY allergies 07/24/16 [History Last Taken 02/10/22] peg 400-propylene glycol (PF) 0.4 %-0.3 % eye drops in a dropperette (Systane (PF)) 1 ea OP BID PRN eye irritation 07/24/16 [History Last Taken Unknown] polyethylene glycol 3350 17 gram oral powder packet 17 g PO DAILY constipation 07/24/16 [History Last Taken 02/10/22] docusate sodium 100 mg capsule 200 mg PO BID constipation 02/10/22 [History Last Taken 02/10/22] doxazosin 4 mg tablet 4 mg PO QHS htn 02/10/22 [History Last Taken 02/09/22] erythromycin 5 mg/gram (0.5 %) eye ointment 1 applic RIGHT EYE QHS eye health 02/10/22 [History Last Taken 02/09/22] mirabegron 25 mg tablet,extended release 24 hr (Myrbetriq) 25 mg PO DAILY bladder 02/10/22 [History Last Taken 02/10/22] acetaminophen 325 mg tablet (Tylenol) 650 mg PO Q4H PRN PRN Fever, pain 1-07/03 #0 tabs 02/19/22 [Rx Last Taken Unknown] lacosamide 50 mg tablet (Vimpat) 50 mg PO BID #0 tabs 02/19/22 [Rx Last Taken Unknown] lactulose 20 gram/30 mL oral solution 20 g (30 mL) PO Q6 #0 mL 02/19/22 [Rx Last Taken Unknown] albuterol sulfate 90 mcg/actuation aerosol inhaler (Ventolin HFA) 2 puff inhalation Q4H PRN PRN Wheezing ##1 03/14/22 [Rx Last Taken Unknown] dextromethorphan-guaifenesin 30 mg-600 mg tablet extended [id number] hr (Mucinex DM) 1 tab PO Q12H PRN cough #14 tabs 03/14/22 [Rx Last Taken Unknown] levofloxacin 750 mg tablet 750 mg PO DAILY #10 tabs 03/31/22 [Rx Last Taken Unknown] Allergy/AdvReac Type Severity Reaction Status Date / Time No Known Allergies Allergy Verified 03/31/22 11:06 Family History Mother Seizures COPD (chronic obstructive pulmonary disease) Father Glaucoma Surgical History History of lingual frenulectomy History of rectal surgery Social History housing: other details: retirement. Smoking Status: Never smoker alcohol intake: never substance use type: does not use EXAM Physical Exam Const Vital Signs: 03/31/22 11:04 03/31/22 11:17 03/31/22 11:18 Temperature 98.6 F Temperature Source Oral Pulse Rate 65 63 Respiratory Rate 16 20 H Respiratory Effort Short of Breath Respiratory Depth Normal Respiratory Pattern Tachypnea Blood Pressure 127/81 H 155/99 H Blood Pressure Mean 96 117 Pulse Ox 99 94 Oxygen Delivery Method Room Air Room Air Room Air 03/31/22 12:16 03/31/22 13:07 03/31/22 15:56 Temperature Temperature Source Pulse Rate 65 59 L 59 L Respiratory Rate 22 H 20 H 18 Respiratory Effort Respiratory Depth Respiratory Pattern Tachypnea Blood Pressure 146/69 H 147/76 H Blood Pressure Mean 94 Pulse Ox 96 99 Oxygen Delivery Method Room Air Positive well nourished and well developed General Appearance ED: well developed and NAD HEENT Reports moist mucous membranes Neck supple and no JVD Resp normal respiratory effort Auscultation: rhonchi and wheezes Cardio regular rate and regular rhythm GI normal to inspection, nondistended, normoactive bowel sounds and non-tender Palpation: soft Extremity normal to inspection General Extremety ED: Yes edema; Negative for tenderness General Extremity: edema bilateral lower extremity Details: trace (Ankles) Neuro oriented x3, CN's II-XII intact bilaterally and no sensory deficits noted Sensorium / Orientation: alert Motor Exam: strength 5/5 throughout Psych mental status grossly normal Skin no rashes or lesions noted MDM MDM MDM Narrative Medical decision making narrative: Patient was given a DuoNeb aerosol here. EKG was obtained. On my interpretation, it showed a sinus bradycardia with a rate of 57. TX interval, QRS interval, and QTc intervals were all normal. There is left axis deviation at -35. There are no acute ST or T wave changes. CBC was within normal limits. Basic metabolic profile was essentially within normal limits. BNP was ordered however, the machine was broken and unable to perform the test. Clinically, there is only trace edema of the ankles bilaterally. There is no evidence of congestive heart failure on exam. COVID-19 rapid antigen was obtained and was negative. Influenza A and influenza B swabs were obtained and were negative. Portable chest x-ray was obtained. There is 1 view. On my interpretation, there are bilateral pulmonary infiltrates, worse on the right. These are increased compared to previous chest x-ray. Bony thorax is normal. Radiologist also interpreted the x-ray and agrees. Patient was given a dose of Levaquin here. Patient was given a prescription for Levaquin. Patient was instructed to follow-up with his primary care physician in 5 to 7 days. Patient and family and caregiver understood and were agreeable with the plan. All questions were answered. Lab Data Attestation: I reviewed the patient's lab results. Labs: Laboratory Results - last 24 hr 03/31/22 03/31/22 03/31/22 12:12 12:12 12:12 WBC 8.9 RBC 4.38 L Hgb 13.2 Hct 39.2 L MCV 89.5 MCH 30.1 MCHC 33.7 RDW Std Deviation 47.1 H RDW Coeff of Carlos 14.5 Plt Count 226 MPV 9.6 Immature Gran % (Auto) 1.400 H Neut % (Auto) 79.2 H Lymph % (Auto) 10.2 L [place] % (Auto) 7.9 Eos % (Auto) 0.7 Baso % (Auto) 0.6 Absolute Neuts (auto) 7.0 Absolute Lymphs (auto) 0.91 Nucleated RBC % 0 Sodium 139 Potassium 4.0 Chloride 103 Carbon Dioxide 34.0 H Anion Gap 2 L BUN 11 Creatinine 0.81 Estim Creat Clear Calc 118.40 Est GFR (MDRD) Af Amer 126 Est GFR (MDRD) Non-Af 104 BUN/Creatinine Ratio 13.6 Glucose 95 Calcium 9.2 B-Natriuretic Peptide 12.8 Radiography Chest X-Ray - ED: 1 View, Read by ED Physician, Read by Radiologist, Right Infiltrate and Left Infiltrate Diagnostic Testing: Clinical Impression(s) from Imaging Studies Chest X-Ray 03/31/22 12:24 IMPRESSION: Progressive bilateral pulmonary infiltrates worse in the right hemithorax. Electronically Signed: Nelson Dodd MD at 12:57 EDT , EKG Initial EKG: Attestation: I personally reviewed and interpreted this EKG as follows: Interpretation: No Acute Injury Pattern, Sinus Bradycardia (57) and RBBB Prior EKG tracings: available for review Prior: Unchanged (02/17/2022) Discharge Plan Triage Chief Complaint: Cough ED Provider: Zander Westbrook Dx/Rx/DC Orders Clinical Impression: Pneumonia, Dyspnea Instructions: ED Pneumonia (Adult) Prescriptions: New levofloxacin 750 mg tablet 750 mg PO DAILY Qty: 10 0RF No Action polyethylene glycol 3350 17 GM powder in packet 17 g PO DAILY clozapine 100 MG tablet 100 mg PO DAILY clozapine 100 MG tablet 200 mg PO QHS fluticasone propionate 1 SPRAY spray,suspension 1 spray NASAL DAILY Systane (PF) 1 EACH dropperette 1 ea OP BID PRN (Reason: eye irritation) docusate sodium 100 mg capsule 200 mg PO BID Label Comments: TAKE (2) CAPSULES BYCMOUTH TWICE DAILY. doxazosin 4 mg tablet 4 mg PO QHS Myrbetriq 25 mg tablet extended release 24 hr 25 mg PO DAILY erythromycin 5 mg/gram (0.5 %) ointment 1 applic RIGHT EYE QHS acetaminophen [Tylenol] 325 mg Tablet 650 mg PO Q4H PRN PRN (Reason: Fever, pain 1-07/03) Qty: 0 0RF lactulose 20 gram/30 mL Solution 20 g PO Q6 Qty: 0 0RF lacosamide [Vimpat] 50 mg Tablet 50 mg PO BID Qty: 0 0RF albuterol sulfate [Ventolin HFA] 90 mcg/actuation HFA aerosol inhaler 2 puff inhalation Q4H PRN PRN (Reason: Wheezing) Qty: 1 0RF Rx Instructions: Dispense with Spacer Mucinex DM 30-600 mg tablet extended release 12 hr 1 tab PO Q12H PRN (Reason: cough) Qty: 14 0RF Primary Care Provider: Abe Moralez Referrals: Abe Moralez MD [Primary Care Provider] - 5-7 Days Disposition Disposition: Home, Self Care Discharge Date/Time: 03/31/22 15:56
--- NOTE | 2022-03-31 11:59 | EKG12_ITS ---
Test Reason : Blood Pressure : / mmHG Vent. Rate : 057 BPM Atrial Rate : 057 BPM P-R Int : 160 ms QRS Dur : 142 ms QT Int : 456 ms P-R-T Axes : 020 -35 024 degrees QTc Int : 443 ms Sinus bradycardia Left axis deviation Right bundle branch block Abnormal ECG Confirmed by HOUSTON MAYA, STEFFANIE ([id number]), publications editor ELIE PARRA ([id number]) on 04/04/2022 8:53:31 AM Referred By: CHICA Confirmed By:STEFFANIE CONRAD MD
[2022-03-31 12:16] VITALS: PULSE 65; RESP 22
[2022-03-31] MEDS: Ipratropium/Albuterol Sulfate 3 ML AMPUL.NEB INHALATION (12:16)
[2022-03-31 12:22] LABS: Absolute Lymphocyte Count 0.91 X10^3/uL (0.83-4.51); Basophil# 0.05 X10^3/uL; Basophil% 0.6 % (0-1); Eosinophil# 0.06 X10^3/uL; Eosinophils% 0.7 % (0-5); Hematocrit 39.2 % (40-54); Hemoglobin 13.2 g/dL (13.0-16.5); Lymphocyte # 0.91 X10^3/ul (0.83-4.51); Lymphocyte % 10.2 % (19-41); Mean Corp Hgb Conc 33.7 g/dL (32-36); Mean Corpuscular Hgb 30.1 pg (27.0-32.0); Mean Corpuscular Volume 89.5 fL (80-94); Mean Platelet Vol. 9.6 fl (6.2-12.0); Monocyte% 7.9 % (0-10); NRBC Flagged by Analyzer 0 % (0-5); Neutrophil # 7.04 X10^3/uL (2.7-7.7); Neutrophil % 79.2 % (47-70); Platelet Count 226 K/mm3 (150-450); RBC Distribution Width CV 14.5 % (11.6-14.6); RBC Distribution Width SD 47.1 fl (35.1-43.9); Red Blood Count 4.38 M/mm3 (4.6-6.2); White Blood Count 8.9 K/mm3 (4.4-11.0)
--- NOTE | 2022-03-31 12:24 | RAD_ITS ---
STUDY: X-RAY CHEST REASON FOR EXAM: Male, 56 years old. Cough TECHNIQUE: Single AP portable view of the chest. COMPARISON: Comparison is made with prior study dated 03/14/2022. FINDINGS: Since prior study, there has been a progression of the bilateral pulmonary infiltrates worse in the right hemithorax. Further follow-up recommended. There is no demonstrated pleural abnormality. Normal size heart. Normal mediastinum and rosa. Normal visualized pulmonary arteries. There is atherosclerotic tortuosity of the aortic arch and descending thoracic aorta. Normal visualized thoracic spine. Normal visualized ribs, clavicles, and shoulders. There is no demonstrated abnormality of the visualized soft tissue structures of the upper abdomen. RAD/Chest 1 View (Portable) IMPRESSION: Progressive bilateral pulmonary infiltrates worse in the right hemithorax. Electronically Signed: Nelson Dodd MD at 12:57 EDT ,
[2022-03-31 12:36] LABS: Anion Gap 2 (5-15); BUN 11 mg/dL (7-18); BUN/Creat Ratio 13.6 RATIO (10-20); Calcium,Total 9.2 mg/dL (8.5-10.1); Chloride 103 mmol/L (98-107); Creatinine, Serum 0.81 mg/dL (0.70-1.30); EST Glomerular Filtration Rate 104 mL/min (>60); Est Glom Filt Rate - Afr Amer 126 mL/min (>60); Glucose 95 mg/dL (74-106); Sodium Level 139 mmol/L (136-145)
[2022-03-31 13:07] VITALS: BP 146/69; PULSE 59; RESP 20; O2SAT 96
[2022-03-31] MEDS: levoFLOXacin IV 750 MG/150 ML BAG 100 MG IV (13:15)
[2022-03-31 15:56] VITALS: BP 147/76; PULSE 59; RESP 18; O2SAT 99
[2022-03-31 16:49] LABS: BNP,B-Type NATRIURETIC PEPTIDE 12.8 pg/mL (0-100)
== END 2022-03-31 15:56 | disposition home or self-care (01) ==
PROVIDERS: Emergency Provider Emergency Medicine; PCP Family Medicine; Visit Provider Emergency Medicine
DX: J18.9 Pneumonia, unspecified organism (principal); R56.9 Unspecified convulsions; R06.00 Dyspnea, unspecified; Z79.899 Other long term (current) drug therapy
CPT/HCPCS: 96366; 96365; 99284; 71045; 80048; 83880; 85025; 87428; 93005; 94640; J7050; A4216

== ENCOUNTER 2022-04-03 09:44 | Inpatient (IN) | payer MEDICARE, MEDICAID, SELFPAY ==
[2022-04-03] VITALS (10 sets, daily range): BP systolic 125–148; BP diastolic 66–99; PULSE 58–67; RESP 15–29; TEMP 36.2–36.6; O2SAT 92–100; BMI 29.9; BMI 28.4
--- NOTE | 2022-04-03 10:16 | EKG12_ITS ---
Test Reason : Blood Pressure : / mmHG Vent. Rate : 062 BPM Atrial Rate : 062 BPM P-R Int : 154 ms QRS Dur : 140 ms QT Int : 414 ms P-R-T Axes : 013 -40 039 degrees QTc Int : 420 ms Normal sinus rhythm Left axis deviation Right bundle branch block Abnormal ECG Confirmed by HOUSTON MAYA, STEFFANIE ([id number]), magazine editor ELIE APRRA ([id number]) on 04/04/2022 8:37:53 AM Referred By: Confirmed By:STEFFANIE CONRAD MD
--- NOTE | 2022-04-03 10:17 | EDS_ITS ---
HPI History of Present Illness Chief Complaint: Weakness Informant: patient and other (nursing home staff) Limited: other (mental status/condition) Onset/Context/Timing Onset: - (last week) Context: gradual and onset Narrative Narrative: Patient is at a intermediate, he was seen here 3 days ago before the weekend and diagnosed with pneumonia, placed on Levaquin, has had 4 doses so far or so, and is getting worse. He was discharged on oxygen, he is hypoxic at 87% when he is off his oxygen and he is uncooperative and will not leave it on. He is doing well at 94% when he leaves at. He is getting more short of breath, he is weak and has had 2 falls without any major injury in the past couple days, and they are having more trouble caring for him. He denies having any pain. He vomited once a couple days ago, but none since and he has been drinking fluids when staff encourages him to. [facility] Medical History Autism Cognitive impairment Constipation Non-smoker Seizure disorder Seizures Home Medications clozapine 100 mg tablet 100 mg PO DAILY anxiety 07/24/16 [History Last Taken 02/10/22] clozapine 100 mg tablet 200 mg PO QHS anxiety 07/24/16 [History Last Taken 02/09/22] fluticasone propionate 50 mcg/actuation nasal spray,suspension 1 spray DAILY allergies 07/24/16 [History Last Taken 02/10/22] peg 400-propylene glycol (PF) 0.4 %-0.3 % eye drops in a dropperette (Systane (PF)) 1 ea OP BID PRN eye irritation 07/24/16 [History Last Taken Unknown] polyethylene glycol 3350 17 gram oral powder packet 17 g PO DAILY constipation 07/24/16 [History Last Taken 02/10/22] docusate sodium 100 mg capsule 200 mg PO BID constipation 02/10/22 [History Last Taken 02/10/22] doxazosin 4 mg tablet 4 mg PO QHS htn 02/10/22 [History Last Taken 02/09/22] erythromycin 5 mg/gram (0.5 %) eye ointment 1 applic EACH EYE QHS eye health 02/10/22 [History Last Taken 02/09/22] mirabegron 25 mg tablet,extended release 24 hr (Myrbetriq) 25 mg PO DAILY bladder 02/10/22 [History Last Taken 02/10/22] acetaminophen 325 mg tablet (Tylenol) 650 mg PO Q4H PRN PRN Fever, pain 1-10 #0 tabs 02/19/22 [Rx Last Taken Unknown] lacosamide 50 mg tablet (Vimpat) 50 mg PO BID #0 tabs 02/19/22 [Rx Last Taken Unknown] lactulose 20 gram/30 mL oral solution 20 g (30 mL) PO Q6 #0 mL 02/19/22 [Rx Last Taken Unknown] albuterol sulfate 90 mcg/actuation aerosol inhaler (Ventolin HFA) 2 puff inhalation Q4H PRN PRN Wheezing ##1 03/14/22 [Rx Last Taken Unknown] dextromethorphan-guaifenesin 30 mg-600 mg tablet extended rybyezx04 hr (Mucinex DM) 1 tab PO Q12H PRN cough #14 tabs 03/14/22 [Rx Last Taken Unknown] levofloxacin 750 mg tablet 750 mg PO DAILY #10 tabs 03/31/22 [Rx Last Taken Unknown] Allergy/AdvReac Type Severity Reaction Status Date / Time No Known Allergies Allergy Verified 04/03/22 09:48 Family History Mother Seizures COPD (chronic obstructive pulmonary disease) Father Glaucoma Surgical History History of lingual frenulectomy History of rectal surgery Social History housing: other details: nursing home. Smoking Status: Never smoker alcohol intake: never substance use type: does not use ROS ROS ED Constitutional Constitutional ED: Reports malaise; Denies chills or fever(s) Cardiovascular Cardiovascular: Denies chest pain or palpitations Respiratory/Chest Respiratory/Chest: Reports cough and dyspnea Gastrointestinal Gastrointestinal: Denies abdominal pain, diarrhea, nausea or vomiting Musculoskeletal Musculoskeletal: Denies back pain or neck pain Integumentary Denies abscess or rash Neurologic Neurologic: Denies headache(s) or weakness EXAM Physical Exam Const Vital Signs: 04/03/22 09:45 04/03/22 10:31 04/03/22 10:35 Temperature 97.1 F L Temperature Source Temporal Pulse Rate 67 66 64 Respiratory Rate 20 H 29 H 16 Respiratory Effort Respiratory Pattern Tachypnea Blood Pressure 148/66 H 135/80 H Blood Pressure Mean 93 98 Pulse Ox 92 98 Oxygen Delivery Method Room Air Nasal Cannula Oxygen Flow Rate (L/min) 2 04/03/22 10:36 04/03/22 10:36 04/03/22 12:00 Temperature 97.3 F L 97.7 F L Temperature Source Oral Temporal Pulse Rate 64 64 Respiratory Rate 19 H 21 H Respiratory Effort Short of Breath Respiratory Pattern Tachypnea Blood Pressure 135/80 H 125/88 H Blood Pressure Mean 98 100 Pulse Ox 98 99 Oxygen Delivery Method Nasal Cannula Nasal Cannula Oxygen Flow Rate (L/min) 2 2 04/03/22 12:00 Temperature Temperature Source Pulse Rate 64 Respiratory Rate 21 H Respiratory Effort Respiratory Pattern Blood Pressure 125/88 H Blood Pressure Mean 100 Pulse Ox 99 Oxygen Delivery Method Nasal Cannula Oxygen Flow Rate (L/min) 2 Positive well nourished and well developed Constitutional Narrative: Appears malaised, but conversational and no distress General Appearance ED: well developed and NAD HEENT Reports moist mucous membranes normocephalic and atraumatic Eyes PERRL and EOMs intact bilaterally Neck full ROM and supple Resp Resp Narrative: Tachypneic but no distress. Coarse breath sounds bilaterally, somewhat more distant on the left, breath sounds are consistent with transmitted upper airway sounds I can audibly hear without stethoscope. Trachea midline. Cardio regular rate, regular rhythm and no murmurs Rate: Negative for tachycardic GI non-tender and non-distended Auscultation: normoactive bowel sounds Palpation: soft Back/Spine no CVA tenderness General Back: other FROM Extremity normal to inspection General Extremety ED: Negative for edema, pulses abnormal or tenderness General Extremity: Negative for edema or pulses abnormal Neuro CN's II-XII intact bilaterally and no sensory deficits noted Neuro Narrative: At baseline mental status per staff Sensorium / Orientation: awake and alert Motor Exam: strength 5/5 throughout Skin no rashes or lesions noted and no wounds MDM MDM MDM Narrative Medical decision making narrative: Work-up basically shows the patient's condition objectively is improving; his chest x-ray shows bilateral pneumonia however it is improved compared with the prior and radiology is in agreement. Everything else appears to be at baseline, he does not have a leukocytosis and actually his white blood count is lower than it was before. He already had a negative COVID test. However, from a care standpoint and clinical condition, he is worsening. For this reason and the fact that staff is having trouble caring for him adequately at a intermediate setting, plan is for admission. Lab Data Attestation: I reviewed the patient's lab results. Labs: Laboratory Results - last 24 hr 04/03/22 04/03/22 10:32 10:32 WBC 4.7 RBC 4.73 Hgb 14.2 Hct 43.6 MCV 92.2 MCH 30.0 MCHC 32.6 RDW Std Deviation 46.7 H RDW Coeff of Carlos 13.8 Plt Count 230 MPV 9.6 Immature Gran % (Auto) 0.200 Neut % (Auto) 69.1 Lymph % (Auto) 19.4 [place] % (Auto) 9.1 Eos % (Auto) 1.1 Baso % (Auto) 1.1 H Absolute Neuts (auto) 3.3 Absolute Lymphs (auto) 0.91 Nucleated RBC % 0 Sodium 142 Potassium 4.0 Chloride 99 Carbon Dioxide 36.0 H Anion Gap 7 BUN 9 Creatinine 0.90 Estim Creat Clear Calc 100.59 Est GFR (MDRD) Af Amer 112 Est GFR (MDRD) Non-Af 93 BUN/Creatinine Ratio 10.0 Glucose 109 H Calcium 9.4 Troponin I High Sens 9 Radiography Chest X-Ray - ED: 1 View, Read by ED Physician, Right Infiltrate and Left Infiltrate Diagnostic Testing: Clinical Impression(s) from Imaging Studies Chest X-Ray 04/03/22 11:45 IMPRESSION: Persistent bilateral pulmonary infiltrates although there has been improvement as compared to prior study. Electronically Signed: Nelson Dodd MD at 12:05 EDT , EKG Initial EKG: Attestation: I personally reviewed and interpreted this EKG as follows: Interpretation: Sinus Rhythm, No Acute Injury Pattern, RBBB and LAFB Prior EKG tracings: available for review Prior: Unchanged Discharge Plan Dx/Rx/DC Orders Clinical Impression: Pneumonia, Hypoxemia, Declining functional status Disposition Disposition: Acute Care Hospital [facility]
[2022-04-03] MEDS: Ipratropium/Albuterol Sulfate 3 ML AMPUL.NEB INHALATION (10:32)
[2022-04-03] MEDS: 0.9% Normal Saline 1,000 ML 100 ML IV (10:34)
[2022-04-03 10:37] LABS: Absolute Lymphocyte Count 0.91 X10^3/uL (0.83-4.51); Absolute Neutrophil Count 3.3 X10^3/uL (2.0-7.7); Basophil# 0.05 X10^3/uL; Basophil% 1.1 % (0-1); Eosinophil# 0.05 X10^3/uL; Eosinophils% 1.1 % (0-5); Hematocrit 43.6 % (40-54); Hemoglobin 14.2 g/dL (13.0-16.5); Lymphocyte # 0.91 X10^3/ul (0.83-4.51); Lymphocyte % 19.4 % (19-41); Mean Corp Hgb Conc 32.6 g/dL (32-36); Mean Corpuscular Volume 92.2 fL (80-94); Mean Platelet Vol. 9.6 fl (6.2-12.0); Monocyte# 0.43 X10^3/uL; Monocyte% 9.1 % (0-10); NRBC Flagged by Analyzer 0 % (0-5); Neutrophil # 3.25 X10^3/uL (2.7-7.7); Neutrophil % 69.1 % (47-70); Platelet Count 230 K/mm3 (150-450); RBC Distribution Width CV 13.8 % (11.6-14.6); RBC Distribution Width SD 46.7 fl (35.1-43.9); Red Blood Count 4.73 M/mm3 (4.6-6.2); White Blood Count 4.7 K/mm3 (4.4-11.0)
[2022-04-03 10:57] LABS: Anion Gap 7 (5-15); BUN 9 mg/dL (7-18); Calcium,Total 9.4 mg/dL (8.5-10.1); Chloride 99 mmol/L (98-107); EST Glomerular Filtration Rate 93 mL/min (>60); Est Glom Filt Rate - Afr Amer 112 mL/min (>60); Estimated Creatinine Clearance 100.59 ml/min; Glucose 109 mg/dL (74-106); Sodium Level 142 mmol/L (136-145); Troponin-I HS 9 pg/mL (3.0-78.0)
--- NOTE | 2022-04-03 11:00 | ED.RN ---
Called 2 phone numbers listed on the guardian sheet, went straight to . Left on Zeferino Crawford for request to call back.
--- NOTE | 2022-04-03 11:28 | CM.ED ---
Addendum entered by Dana Maki 04/03/22 14:06: Pt to be admitted. TRACE placed a call to Abi Galvan at [facility] and left message updating her that pt is to be admitted to [facility] [place] [place]. TRACE also updated Abi that this worker did ask abut GI Consult and at this time, pt does not need one. Dana Maki ADJUNCT PSYCHOLOGY FACULTY MEMBER, [employer] [employer] Original Note: Social Work Note SW received a message from pt's CM Abi Galvan through [facility]. Aib reports that pt has been recently diagnosed with Pneumonia and has had recent falls. Abi states that pt's parents had asked for pt's bowels to be checked and the last time pt was in ED, they were told that they did not need to be checked due to the medications pt was on. Abi states that pt's bowel movements are Mediocre and was inquiring if SW could assist with getting pt a GI Consult and seeing if pt's large intestine needed surgery. Abi states that pt resides in a halfway and has been to [facility] before in the past. Abi states that pt has had two falls and when pt wears his oxygen, he is good but when he takes off his oxygen due to his confusion, his sats drop. Abi states that pt is supposed to be on Oxygen at night an PRN during the day. Abi states that she was working on readmission for pt to return to SNF but states she wanted pt to come to ED to get stabilize and then possibly transfer back to SNF. Abi asking if pt can get GI consult and GI assessment. Abi states her office number is [phone] ext: [phone] or cell phone [phone]. TRACE updated ED MD Ramirez who states pt will likely be admitted to [facility]. TRACE updated MD on CM request for GI consult. At this time, GI consult is not needed. SW to update Abi Galvan. Dana Maki ADJUNCT PSYCHOLOGY FACULTY MEMBER, [employer] [employer]
--- NOTE | 2022-04-03 11:45 | RAD_ITS ---
STUDY: X-RAY CHEST REASON FOR EXAM: Male, 56 years old. Cough sob, check progression of pna TECHNIQUE: Single AP portable view of the chest. COMPARISON: Comparison is made to prior study 03/31/2022. FINDINGS: EKG electrodes are seen. Persistent bilateral infiltrates although there has been improvement as compared to prior study. There is no demonstrated pleural abnormality. There is borderline cardiomegaly. Normal mediastinum and rosa. Normal visualized pulmonary arteries. Normal visualized aortic arch and descending thoracic aorta. Normal visualized thoracic spine. Normal visualized ribs, clavicles, and shoulders. There is no demonstrated abnormality of the visualized soft tissue structures of the upper abdomen. RAD/Chest 1 View (Portable) IMPRESSION: Persistent bilateral pulmonary infiltrates although there has been improvement as compared to prior study. Electronically Signed: Nelson Dodd MD at 12:05 EDT ,
--- NOTE | 2022-04-03 12:36 | HP.PCM.HOS_ITS ---
HPI - General General Date of Admission: 04/03/22 Date of Service: 04/03/22 Chief Complaint: Low oxygen saturation HPI Narrative MORE SALAZAR, is a 56 M with history of autism currently resident at the alf diagnosed with pneumonia 2 days prior to his admission. Patient was sent home on Levaquin as well as supplemental oxygen. Patient was brought to the ED on account of persistent hypoxia. Patient has apparently not been able to keep his oxygen saturation above 85 per reports from the alf. Patient was apparently ripping off his oxygen. Decision was therefore made to admit patient to regular nursing floor to be managed as inpatient [facility] Medical History Autism Cognitive impairment Constipation Non-smoker Seizure disorder Seizures Home Medications clozapine 100 mg tablet 100 mg PO DAILY anxiety 07/24/16 [History Last Taken 04/03/22] clozapine 100 mg tablet 200 mg PO QHS anxiety 07/24/16 [History Last Taken 04/02/22] fluticasone propionate 50 mcg/actuation nasal spray,suspension 1 spray DAILY allergies 07/24/16 [History Last Taken 04/03/22] peg 400-propylene glycol (PF) 0.4 %-0.3 % eye drops in a dropperette (Systane (PF)) 1 ea OP BID PRN eye irritation 07/24/16 [History Last Taken 03/30/22] polyethylene glycol 3350 17 gram oral powder packet 17 g PO DAILY constipation 07/24/16 [History Last Taken 04/03/22] docusate sodium 100 mg capsule 200 mg PO BID constipation 02/10/22 [History Last Taken 04/03/22] doxazosin 4 mg tablet 4 mg PO QHS htn 02/10/22 [History Last Taken 04/02/22] erythromycin 5 mg/gram (0.5 %) eye ointment 1 applic RIGHT EYE QHS eye health 02/10/22 [History Last Taken 04/03/22] mirabegron 25 mg tablet,extended release 24 hr (Myrbetriq) 25 mg PO DAILY bladder 02/10/22 [History Last Taken 04/03/22] acetaminophen 325 mg tablet (Tylenol) 650 mg PO Q4H PRN PRN Fever, pain 1-07/03 #0 tabs 02/19/22 [Rx Last Taken Unknown] albuterol sulfate 90 mcg/actuation aerosol inhaler (Ventolin HFA) 2 puff inhalation Q4H PRN PRN Wheezing ##1 03/14/22 [Rx Last Taken 04/02/22] dextromethorphan-guaifenesin 30 mg-600 mg tablet extended [id number] hr (Mucinex DM) 1 tab PO Q12H PRN Cough 04/03/22 [History Last Taken 04/02/22] lacosamide 50 mg tablet (Vimpat) 50 mg PO BID . 04/03/22 [History Last Taken 04/03/22] lactulose 20 gram/30 mL oral solution 20 g PO TID . 04/03/22 [History Last Taken 04/03/22] levofloxacin 750 mg tablet 750 mg PO DAILY . 04/03/22 [History Last Taken 04/03/22] Allergy/AdvReac Type Severity Reaction Status Date / Time No Known Allergies Allergy Verified 04/03/22 09:48 Family History Mother Seizures COPD (chronic obstructive pulmonary disease) Father Glaucoma Surgical History History of lingual frenulectomy History of rectal surgery Social History housing: other details: long-term. Smoking Status: Never smoker alcohol intake: never substance use type: does not use ROS Review of Systems ROS Unobtainable: due to mental condition Vital Signs Vital Signs Vital Signs: 04/03/22 09:45 04/03/22 10:31 04/03/22 10:35 Temperature 97.1 F L Temperature Source Temporal Pulse Rate 67 66 64 Respiratory Rate 20 H 29 H 16 Respiratory Effort Respiratory Pattern Tachypnea Blood Pressure 148/66 H 135/80 H Blood Pressure Mean 93 98 Pulse Ox 92 98 Oxygen Delivery Method Room Air Nasal Cannula Oxygen Flow Rate (L/min) 2 04/03/22 10:36 04/03/22 10:36 04/03/22 12:00 Temperature 97.3 F L 97.7 F L Temperature Source Oral Temporal Pulse Rate 64 64 Respiratory Rate 19 H 21 H Respiratory Effort Short of Breath Respiratory Pattern Tachypnea Blood Pressure 135/80 H 125/88 H Blood Pressure Mean 98 100 Pulse Ox 98 99 Oxygen Delivery Method Nasal Cannula Nasal Cannula Oxygen Flow Rate (L/min) 2 2 04/03/22 12:00 Temperature Temperature Source Pulse Rate 64 Respiratory Rate 21 H Respiratory Effort Respiratory Pattern Blood Pressure 125/88 H Blood Pressure Mean 100 Pulse Ox 99 Oxygen Delivery Method Nasal Cannula Oxygen Flow Rate (L/min) 2 Weight Weight: 100.244 kg Body Mass Index (BMI) 29.9 Physical Exam Narrative GENERAL: Flat affect HEENT: Atraumatic; EYES; Anicteric, Normal Conjunctiva NECK; supple, normal thyroid, RESPIRATORY: Diminished to auscultation bilateral rhonchi CARDIOVASCULAR: Regular S1 S2, GI: soft, normoactive bowel sounds, : No Renal angle tenderness; EXTREMITIES: No edema, no clubbing, MUSCULOSKELETAL: no muscle wasting NEURO: Awake; no lateralizing signs. SKIN: No Rash PSYCH; Flat affect Results Lab / Micro Data Result Diagrams: 04/03/22 10:32 04/03/22 10:32 Labs: Laboratory Results - last 24 hr 04/03/22 10:32: WBC 4.7, RBC 4.73, Hgb 14.2, Hct 43.6, MCV 92.2, MCH 30.0, MCHC 32.6, RDW Std Deviation 46.7 H, RDW Coeff of Carlos 13.8, Plt Count 230, MPV 9.6, Immature Gran % (Auto) 0.200, Neut % (Auto) 69.1, Lymph % (Auto) 19.4, [place] % (Auto) 9.1, Eos % (Auto) 1.1, Baso % (Auto) 1.1 H, Absolute Neuts (auto) 3.3, Absolute Lymphs (auto) 0.91, Nucleated RBC % 0 04/03/22 10:32: Sodium 142, Potassium 4.0, Chloride 99, Carbon Dioxide 36.0 H, Anion Gap 7, BUN 9, Creatinine 0.90, Estim Creat Clear Calc 100.59, Est GFR (MDRD) Af Amer 112, Est GFR (MDRD) Non-Af 93, BUN/Creatinine Ratio 10.0, Glucose 109 H, Calcium 9.4, Troponin I High Sens 9 Radiology Impression Chest X-Ray 04/03/22 11:45 IMPRESSION: Persistent bilateral pulmonary infiltrates although there has been improvement as compared to prior study. Electronically Signed: Nelson Dodd MD at 12:05 EDT , Assessment & Plan Assessment/Plan (1) Pneumonia: (2) Dyspnea: (3) Hypoxemia: PLAN: Plan Patient is a 56-year-old gentleman with underlying history of autism with recent diagnosis of pneumonia admitted with low oxygen saturation 1. Acute respiratory insufficiency ? Secondary to pneumonia. Patient has been admitted to regular nursing floor managed with Rocephin and azithromycin placed on supplemental oxygen which is currently being titrated to keep oxygen saturation greater than 90 2. Mild MRDD ? Supportive care 3. Seizure disorder ? Did continue patient on seizure medication 4. Recurrent constipation ? Did continue patient bowel regimen 5. DVT prophylaxis ? Low risk encourage early ambulation Charges/Coding Visit Charges Inpatient E&M: 27355 Init Hosp L2
[2022-04-03] MEDS: Polyethylene Glycol 3350 17 GM PACKET PO (15:53)
[2022-04-03] MEDS: Docusate Sodium 100 MG Capsule 200 MG PO ×2 (15:53→21:11)
[2022-04-03] MEDS: levoFLOXacin IV 750 MG/150 ML BAG 100 MG IV (15:57)
[2022-04-03] MEDS: Lacosamide 50 MG Tablet PO ×2 (16:07→21:12)
[2022-04-03] MEDS: Fluticasone 0.05% 1 SPRAY NASAL.SRY NASAL ×2 (17:23→17:26)
[2022-04-03] MEDS: Mirabegron 25 MG TAB.ER.24H PO (17:26)
[2022-04-03] MEDS: Lactulose 20 GM/30 ML UDC PO ×2 (17:27→23:01)
[2022-04-03 18:20] LABS: M R Staph aureus DNA By PCR Negative (Negative); Probe Check PASS; Specimen Processing Control PASS
[2022-04-03] MEDS: Erythromycin Base 1 OPTH.TUBE 1 APPLIC RIGHT EYE (21:12)
[2022-04-04 02:33] VITALS: BP 127/82; PULSE 61; RESP 18; TEMP 36.5; O2SAT 98
[2022-04-04 05:41] LABS: Absolute Lymphocyte Count 0.96 X10^3/uL (0.83-4.51); Absolute Neutrophil Count 4.2 X10^3/uL (2.0-7.7); Basophil# 0.05 X10^3/uL; Basophil% 0.9 % (0-1); Eosinophil# 0.08 X10^3/uL; Eosinophils% 1.4 % (0-5); Hematocrit 40.6 % (40-54); Hemoglobin 13.1 g/dL (13.0-16.5); Lymphocyte # 0.96 X10^3/ul (0.83-4.51); Lymphocyte % 16.5 % (19-41); Mean Corp Hgb Conc 32.3 g/dL (32-36); Mean Corpuscular Hgb 29.6 pg (27.0-32.0); Mean Corpuscular Volume 91.9 fL (80-94); Mean Platelet Vol. 9.7 fl (6.2-12.0); Monocyte# 0.54 X10^3/uL; Monocyte% 9.3 % (0-10); NRBC Flagged by Analyzer 0 % (0-5); Neutrophil # 4.18 X10^3/uL (2.7-7.7); Neutrophil % 71.6 % (47-70); Platelet Count 213 K/mm3 (150-450); RBC Distribution Width CV 13.9 % (11.6-14.6); RBC Distribution Width SD 46.9 fl (35.1-43.9); Red Blood Count 4.42 M/mm3 (4.6-6.2); White Blood Count 5.8 K/mm3 (4.4-11.0)
[2022-04-04 06:06] LABS: Anion Gap 4 (5-15); BUN 11 mg/dL (7-18); BUN/Creat Ratio 13.3 RATIO (10-20); Calcium,Total 8.9 mg/dL (8.5-10.1); Chloride 100 mmol/L (98-107); Creatinine, Serum 0.83 mg/dL (0.70-1.30); EST Glomerular Filtration Rate 102 mL/min (>60); Est Glom Filt Rate - Afr Amer 123 mL/min (>60); Estimated Creatinine Clearance 109.08 ml/min; Glucose 102 mg/dL (74-106); Magnesium 2.2 mg/dL (1.6-2.6); Potassium 4.1 mmol/L (3.5-5.1); Sodium Level 140 mmol/L (136-145)
[2022-04-04 08:00] VITALS: O2SAT 91
[2022-04-04] MEDS: Polyethylene Glycol 3350 17 GM PACKET PO (08:40)
[2022-04-04] MEDS: Docusate Sodium 100 MG Capsule 200 MG PO ×2 (08:41→21:31)
[2022-04-04] MEDS: Mirabegron 25 MG TAB.ER.24H PO (08:41)
[2022-04-04] MEDS: Lacosamide 50 MG Tablet PO ×2 (08:41→21:31)
--- NOTE | 2022-04-04 08:51 | PN.HOSP_ITS ---
Subjective Subjective Patient is a 56-year-old gentleman with history of mild MRDD resident at a long-term brought in following recent diagnosis of pneumonia with hypoxia. Admitted to regular nursing floor where patient is currently being managed Plan is to try to wean off oxygen and patient discharged back Objective Data Objective Data Vital Signs: Vital Signs Temp Pulse Resp BP Pulse Ox O2 Del Method O2 Flow Rate 97.7 F L 61 18 127/82 H 98 Nasal Cannula 2 04/04/22 02:33 04/04/22 02:33 04/04/22 02:33 04/04/22 02:33 04/04/22 02:33 04/04/22 02:33 04/04/22 02:33 Oxygen Flow Rate (L/min) 2 Oxygen Delivery Method Nasal Cannula Weight: 94.4 kg Body Mass Index (BMI) 28.4 Intake & Output: Intake and Output for Last 24 Hours 04/02/22 04/03/22 04/04/22 23:59 23:59 23:59 Intake Total 1390.00 / 1390.00 Output Total 501 / 501 Balance 1390.00 / 890.00 -501 / -501 Lab / Micro Data Result Diagrams: 04/04/22 05:29 04/04/22 05:29 Labs: Laboratory Results - last 24 hr 04/03/22 10:32: WBC 4.7, RBC 4.73, Hgb 14.2, Hct 43.6, MCV 92.2, MCH 30.0, MCHC 32.6, RDW Std Deviation 46.7 H, RDW Coeff of Carlos 13.8, Plt Count 230, MPV 9.6, Immature Gran % (Auto) 0.200, Neut % (Auto) 69.1, Lymph % (Auto) 19.4, [place] % (Auto) 9.1, Eos % (Auto) 1.1, Baso % (Auto) 1.1 H, Absolute Neuts (auto) 3.3, Absolute Lymphs (auto) 0.91, Nucleated RBC % 0 04/03/22 10:32: Sodium 142, Potassium 4.0, Chloride 99, Carbon Dioxide 36.0 H, Anion Gap 7, BUN 9, Creatinine 0.90, Estim Creat Clear Calc 100.59, Est GFR (MDRD) Af Amer 112, Est GFR (MDRD) Non-Af 93, BUN/Creatinine Ratio 10.0, Glucose 109 H, Calcium 9.4, Troponin I High Sens 9 04/03/22 16:00: MRSA (PCR) Negative 04/04/22 05:29: WBC 5.8, RBC 4.42 L, Hgb 13.1, Hct 40.6, MCV 91.9, MCH 29.6, MCHC 32.3, RDW Std Deviation 46.9 H, RDW Coeff of Carlos 13.9, Plt Count 213, MPV 9.7, Immature Gran % (Auto) 0.300, Neut % (Auto) 71.6 H, Lymph % (Auto) 16.5 L, [place] % (Auto) 9.3, Eos % (Auto) 1.4, Baso % (Auto) 0.9, Absolute Neuts (auto) 4.2, Absolute Lymphs (auto) 0.96, Nucleated RBC % 0 04/04/22 05:29: Sodium 140, Potassium 4.1, Chloride 100, Carbon Dioxide 36.0 H, Anion Gap 4 L, BUN 11, Creatinine 0.83, Estim Creat Clear Calc 109.08, Est GFR (MDRD) Af Amer 123, Est GFR (MDRD) Non-Af 102, BUN/Creatinine Ratio 13.3, Glucose 102, Calcium 8.9, Magnesium 2.2 Micro: Microbiology 04/03/22 Unknown Interface Orders Respiratory Panel (PCR) - Final 04/03/22 16:20 Urine, Clean Catch Legionella Antigen - Final 04/03/22 16:20 Urine, Clean Catch Streptococcus pneumoniae Antigen (M - Final Radiography Diagnostic Testing: Radiology Impression Chest X-Ray 04/03/22 11:45 IMPRESSION: Persistent bilateral pulmonary infiltrates although there has been improvement as compared to prior study. Electronically Signed: Nelson Dodd MD at 12:05 EDT , Physical Exam Narrative GENERAL: Flat affect HEENT: Atraumatic; EYES; Anicteric, Normal Conjunctiva NECK; supple, normal thyroid, RESPIRATORY: Diminished to auscultation bilateral rhonchi CARDIOVASCULAR: Regular S1 S2, GI: soft, normoactive bowel sounds, : No Renal angle tenderness; EXTREMITIES: No edema, no clubbing, MUSCULOSKELETAL: no muscle wasting NEURO: Awake; no lateralizing signs. SKIN: No Rash PSYCH; Flat affect Assessment & Plan Assessment/Plan (1) Pneumonia: (2) Dyspnea: (3) Hypoxemia: PLAN: Plan Patient is a 56-year-old gentleman with underlying history of autism with recent diagnosis of pneumonia admitted with low oxygen saturation 1. Acute respiratory insufficiency ? Secondary to pneumonia. Patient has been admitted to regular nursing floor managed with Rocephin and azithromycin placed on supplemental oxygen which is currently being titrated to keep oxygen saturation greater than 90 ? 04/04/2022; no significant change in patient's clinical condition following admission plan is to try to wean of oxygen and assess patient for possible discharge 2. Mild MRDD ? Supportive care 3. Seizure disorder ? Did continue patient on seizure medication 4. Recurrent constipation ? Did continue patient bowel regimen 5. DVT prophylaxis ? Low risk encourage early ambulation Charges/Coding Visit Charges Inpatient E&M: 54025 Subs Hosp L2
[2022-04-04 08:54] VITALS: BP 138/80; PULSE 68; RESP 18; TEMP 36.2; O2SAT 98
[2022-04-04] MEDS: levoFLOXacin IV 750 MG/150 ML BAG 100 MG IV (09:52)
[2022-04-04] MEDS: 0.9% Saline Lock 10 ML Syringe IV (09:58)
--- NOTE | 2022-04-04 11:05 | NURSING ---
Nurse from [facility] called to check up on him.
--- NOTE | 2022-04-04 13:10 | CASEMGMT ---
Social Work TRACE placed call to pt's father Jimi Crawford who is pt's guardian. Jimi states that pt currently lives in a jail. He was at [facility] for a few weeks in January/February an then returned to the jail. Jimi states the jail is not able to handle the patient and the house is not set up in a way that is able to accommodate patient. Pt's father is requesting pt return to [facility]. TRACE inquired if this is exterminator helper or if they are planning for pt to return to the jail eventually. Pt's father is uncertain and defers this decision to pt's REGINA Floodplain Manager Abi Galvan. Phone call placed to Abi and ÁLVARO left requesting return call. Phone call placed to [facility] and spoke with Cecy. They may have beds available, but uncertain if they would if pt needs exterminator helper care. Referral to be sent by randall Zuniga/marvin delgado. SW will await return call from REGINA Alex Floodplain Manager. Plan: [facility], pending acceptance SHAYAN Sanford
--- NOTE | 2022-04-04 13:29 | CASEMGMT ---
Discharge Community Pharmacist Nadia Reynoso/marvin Salon Sales Consultant sent over referral to Cecy at [facility]. Nadia Osei Discharge Community Pharmacist
--- NOTE | 2022-04-04 14:34 | CASEMGMT ---
Discharge High School Music Teacher Cecy from [facility] reached out. Patients referral has been denied. TRACE Williamson notified. Nadia Osei Discharge High School Music Teacher
[2022-04-04 14:37] VITALS: BP 108/63; PULSE 72; RESP 18; TEMP 36.1; O2SAT 93
--- NOTE | 2022-04-04 15:33 | CASEMGMT ---
Discharge Purchase Request Editor Nadia Elliott Universal Grinder Operator faxed over a referral to [facility]. Plan: Waiting acceptance at [facility]. Nadia Osei Discharge Planning Assistance
--- NOTE | 2022-04-04 15:56 | CASEMGMT ---
Social Work TRACE spoke with Pt DD healthcare social worker Abi Galvan who states that it is the hope that pt can return back to his long term after rehabilitation. TARCE updated [facility] about this and Lasana states they do not feel they can accommodate pt at this time. Return call to Abi and updated. Abi spoke to pt parents and next SNF choice is [facility]. Nadia, discharge assistance updated and will send referral. Plan: [facility], pending acceptance SHAYAN Sanford
--- NOTE | 2022-04-04 15:58 | CHAPLAIN ---
Type of Pastoral Visit _x__ Initial Visit ___ Follow-up Visit ___ On-call Visit ___ General Patient Visit ___ Spiritual Assessment ___ Family Conference ___ Bereavement ___ Rapid Response ___ Code Blue ___ Other (describe below) Pastoral Care Referral From ___ Patient ___ Family ___ Nurse ___ Physician ___ Greaser And Oiler ___ Rag Baler _x__ Other (describe below) Sacrament/Intervention ___ Active listening ___ Anointing ___ Baptist ___ Bereavement ___ Communion ___ Renae exploration ___ ___ Life review ___ Prayer ___ Reconciliation ___ Sacrament of Sick _x__ Supportive presence ___ Wedding ___ Other (describe below) Pastoral Comments patient is minimally verbal; pt appears to follow the comments and questions of this fitter helper; pt however uses one or two word phrases to answer and sometime it is very slow to speak or gives no response; sat with patient for a few minutes and watched TV with him;
--- NOTE | 2022-04-04 16:55 | CASEMGMT ---
Discharge Caramel Candy Maker Ana from [facility] reached out. Patient has been accepted. Patient can go to [facility]. When medically ready. Nadia Osei Discharge Caramel Candy Maker
[2022-04-04 20:20] VITALS: BP 130/82; PULSE 66; RESP 18; TEMP 36.6; O2SAT 94
[2022-04-04 20:23] VITALS: O2SAT 94
[2022-04-04] MEDS: Erythromycin Base 1 OPTH.TUBE 1 APPLIC RIGHT EYE (21:32)
[2022-04-04] MEDS: Doxazosin 4 MG Tablet PO (21:32)
[2022-04-04] MEDS: Lactulose 20 GM/30 ML UDC PO (23:57)
[2022-04-05 02:00] VITALS: O2SAT 96
[2022-04-05 02:19] VITALS: BP 144/69; PULSE 64; RESP 18; TEMP 36.8; O2SAT 96
--- NOTE | 2022-04-05 07:30 | PCM.PN.HOSP ---
Subjective Subjective Patient was found to be quite deconditioned. Case discussed with case management patient will be discharged to long-term facility at discharge instead of going back to the alf Objective Data Objective Data Vital Signs: Vital Signs Temp Pulse Resp BP Pulse Ox O2 Del Method O2 Flow Rate 98.2 F 64 18 144/69 H 96 Nasal Cannula 2 04/05/22 02:19 04/05/22 02:19 04/05/22 02:04/05/22 02:19 04/05/22 02:19 04/05/22 02:04/05/22 02:19 Oxygen Flow Rate (L/min) 2 Oxygen Delivery Method Nasal Cannula Weight: 94.6 kg Body Mass Index (BMI) 28.4 Intake & Output: Intake and Output for Last 24 Hours 04/03/22 04/04/22 04/05/22 23:59 23:59 23:59 Intake Total 1390.00 / 1390.00 150 / 150 300 / 300 Output Total 501 / 501 400 / 400 Balance 1390.00 / 890.00 -351 / -351 -100 / -100 Lab / Micro Data Result Diagrams: 04/04/22 05:29 04/04/22 05:29 Micro: Microbiology 04/04/22 06:35 Sputum, Expectorated/Coughed Gram Stain - Final 04/03/22 Unknown Interface Orders Respiratory Panel (PCR) - Final 04/03/22 16:20 Urine, Clean Catch Legionella Antigen - Final 04/03/22 16:20 Urine, Clean Catch Streptococcus pneumoniae Antigen (M - Final Physical Exam Narrative GENERAL: Flat affect HEENT: Atraumatic; EYES; Anicteric, Normal Conjunctiva NECK; supple, normal thyroid, RESPIRATORY: Diminished to auscultation bilateral rhonchi CARDIOVASCULAR: Regular S1 S2, GI: soft, normoactive bowel sounds, : No Renal angle tenderness; EXTREMITIES: No edema, no clubbing, MUSCULOSKELETAL: no muscle wasting NEURO: Awake; no lateralizing signs. SKIN: No Rash PSYCH; Flat affect Assessment & Plan Assessment/Plan (1) Pneumonia: (2) Dyspnea: (3) Hypoxemia: PLAN: Plan Patient is a 56-year-old gentleman with underlying history of autism with recent diagnosis of pneumonia admitted with low oxygen saturation 1. Acute respiratory insufficiency ? Secondary to pneumonia. Patient has been admitted to regular nursing floor managed with Rocephin and azithromycin placed on supplemental oxygen which is currently being titrated to keep oxygen saturation greater than 90 ? 04/04/2022; no significant change in patient's clinical condition following admission plan is to try to wean of oxygen and assess patient for possible discharge 2. Mild MRDD ? Supportive care 3. Seizure disorder ? Did continue patient on seizure medication 4. Recurrent constipation ? Did continue patient bowel regimen 5. DVT prophylaxis ? Low risk encourage early ambulation 6. ?Moderate malnutrition ? Related to acute illness and inability to consume adequate energy intake as evidenced by <50% po intake and 6.25% wt loss x > 1 mo- pt also w/ fat/muscle loss in upper/lower body. 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 Physical deconditioning - Requested for PT OT eval and social media job titles to assist with discharge planning Charges/Coding Visit Charges Inpatient E&M: 63830 Subs Hosp L2
[2022-04-05 07:55] VITALS: O2SAT 92
[2022-04-05 08:32] VITALS: O2SAT 92
[2022-04-05 08:59] VITALS: BP 136/82; PULSE 60; RESP 16; TEMP 36.6; O2SAT 92
[2022-04-05] MEDS: Docusate Sodium 100 MG Capsule 200 MG PO (09:10)
[2022-04-05] MEDS: Mirabegron 25 MG TAB.ER.24H PO (09:10)
[2022-04-05] MEDS: Fluticasone 0.05% 1 SPRAY NASAL.SRY NASAL (09:11)
[2022-04-05] MEDS: Polyethylene Glycol 3350 17 GM PACKET PO (09:12)
[2022-04-05] MEDS: levoFLOXacin IV 750 MG/150 ML BAG 100 MG IV (09:18)
[2022-04-05] MEDS: Lacosamide 50 MG Tablet PO (09:19)
--- NOTE | 2022-04-05 09:34 | PCM.TXEXTCAR ---
Diet Diet Order/Speech Therapy: 04/03/22 14:53 Diet: Regular - General Food consistency:: Mechanical (Minced/Moist) Liquid Consistency:: Regular/Thin Type of Dietary Supplement:: EP or MC w/ L and D Diet Comments: liquids in sippy cup - supervision at meals Therapies Physical Therapy: Eval and Treat Occupational Therapy: Eval and Treat Problem/Diagnosis (1) Pneumonia: Status: Acute Code(s): J18.9 - Pneumonia, unspecified organism (2) Dyspnea: Status: Acute Code(s): R06.00 - Dyspnea, unspecified (3) Hypoxemia: Status: Acute Code(s): R09.02 - Hypoxemia Plan Patient is a 56-year-old gentleman with underlying history of autism with recent diagnosis of pneumonia admitted with low oxygen saturation 1. Acute respiratory insufficiency ? Secondary to pneumonia. Patient has been admitted to regular nursing floor managed with Rocephin and azithromycin placed on supplemental oxygen which is currently being titrated to keep oxygen saturation greater than 90 ? 04/04/2022; no significant change in patient's clinical condition following admission plan is to try to wean of oxygen and assess patient for possible discharge 2. Mild MRDD ? Supportive care 3. Seizure disorder ? Did continue patient on seizure medication 4. Recurrent constipation ? Did continue patient bowel regimen 5. DVT prophylaxis ? Low risk encourage early ambulation 6. ?Moderate malnutrition ? Related to acute illness and inability to consume adequate energy intake as evidenced by <50% po intake and 6.25% wt loss x > 1 mo- pt also w/ fat/muscle loss in upper/lower body. 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 Discharge Plan Admission Admit Date/Time: 04/03/22 12:31 Attending Provider: Declan Arzola Primary Care Provider: Abe Moralez Discharge Orders/Prescriptions Prescriptions: New Ensure Enlive 0.08 gram-1.5 kcal/mL Liquid 120 ml PO 4X/DAY Qty: 0 0RF albuterol sulfate 2.5 mg /3 mL (0.083 %) Solution For Nebulization 2.5 mg inhalation Q2H PRN PRN (Reason: Shortness of Breath/Wheezing) Qty: 0 0RF Continued polyethylene glycol 3350 17 GM powder in packet 17 g PO DAILY clozapine 100 MG tablet 100 mg PO DAILY clozapine 100 MG tablet 200 mg PO QHS fluticasone propionate 1 SPRAY spray,suspension 1 spray NASAL DAILY Systane (PF) 1 EACH dropperette 1 ea OP BID PRN (Reason: eye irritation) docusate sodium 100 mg capsule 200 mg PO BID Label Comments: TAKE (2) CAPSULES BYCMOUTH TWICE DAILY. doxazosin 4 mg tablet 4 mg PO QHS Myrbetriq 25 mg tablet extended release 24 hr 25 mg PO DAILY erythromycin 5 mg/gram (0.5 %) ointment 1 applic RIGHT EYE QHS acetaminophen [Tylenol] 325 mg Tablet 650 mg PO Q4H PRN PRN (Reason: Fever, pain 1-10/10) Qty: 0 0RF albuterol sulfate [Ventolin HFA] 90 mcg/actuation HFA aerosol inhaler 2 puff inhalation Q4H PRN PRN (Reason: Wheezing) Qty: 1 0RF Rx Instructions: Dispense with Spacer Mucinex DM 30-600 mg Tablet Extended Release 12 Hr 1 tab PO Q12H PRN (Reason: Cough) lacosamide [Vimpat] 50 mg tablet 50 mg PO BID lactulose 20 gram/30 mL solution 20 g PO TID levofloxacin 750 mg tablet 750 mg PO DAILY Qty: 5 0RF Referrals / Follow Up: Abe Moralez MD [Primary Care Provider] - Within 2 Weeks Disposition Disposition (needs filled in before D/C Order can be placed): Long-Term Facility
--- NOTE | 2022-04-05 09:40 | PCM.DC.SUM ---
Providers Date of Admission: 04/03/22 Primary Care Physician: Dr. Abe Moralez MD Reason For Visit: PNEUMONIA Diagnosis Discharge Diagnosis (1) Pneumonia: Status: Acute Code(s): J18.9 - Pneumonia, unspecified organism (2) Dyspnea: Status: Acute Code(s): R06.00 - Dyspnea, unspecified (3) Hypoxemia: Status: Acute Code(s): R09.02 - Hypoxemia Plan Patient is a 56-year-old gentleman with underlying history of autism with recent diagnosis of pneumonia admitted with low oxygen saturation 1. Acute respiratory insufficiency ? Secondary to pneumonia. Patient has been admitted to regular nursing floor managed with Rocephin and azithromycin placed on supplemental oxygen which is currently being titrated to keep oxygen saturation greater than 90 ? 04/04/2022; no significant change in patient's clinical condition following admission plan is to try to wean of oxygen and assess patient for possible discharge 2. Mild MRDD ? Supportive care 3. Seizure disorder ? Did continue patient on seizure medication 4. Recurrent constipation ? Did continue patient bowel regimen 5. DVT prophylaxis ? Low risk encourage early ambulation 6. ?Moderate malnutrition ? Related to acute illness and inability to consume adequate energy intake as evidenced by <50% po intake and 6.25% wt loss x > 1 mo- pt also w/ fat/muscle loss in upper/lower body. 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 Physical deconditioning - Requested for PT OT eval and social services aide to assist with discharge planning Medications at Discharge Home Medications clozapine 100 mg tablet 100 mg PO DAILY anxiety 07/24/16 clozapine 100 mg tablet 200 mg PO QHS anxiety 07/24/16 fluticasone propionate 50 mcg/actuation nasal spray,suspension 1 spray DAILY allergies 07/24/16 peg 400-propylene glycol (PF) 0.4 %-0.3 % eye drops in a dropperette (Systane (PF)) 1 ea OP BID PRN eye irritation 07/24/16 polyethylene glycol 3350 17 gram oral powder packet 17 g PO DAILY constipation 07/24/16 docusate sodium 100 mg capsule 200 mg PO BID constipation 02/10/22 doxazosin 4 mg tablet 4 mg PO QHS htn 02/10/22 erythromycin 5 mg/gram (0.5 %) eye ointment 1 applic RIGHT EYE QHS eye health 02/10/22 mirabegron 25 mg tablet,extended release 24 hr (Myrbetriq) 25 mg PO DAILY bladder 02/10/22 acetaminophen 325 mg tablet (Tylenol) 650 mg PO Q4H PRN PRN Fever, pain 1-07/03 #0 tabs 02/19/22 albuterol sulfate 90 mcg/actuation aerosol inhaler (Ventolin HFA) 2 puff inhalation Q4H PRN PRN Wheezing ##1 03/14/22 dextromethorphan-guaifenesin 30 mg-600 mg tablet extended [id number] hr (Mucinex DM) 1 tab PO Q12H PRN Cough 04/03/22 lacosamide 50 mg tablet (Vimpat) 50 mg PO BID . 04/03/22 lactulose 20 gram/30 mL oral solution 20 g PO TID . 04/03/22 albuterol sulfate 2.5 mg/3 mL (0.083 %) solution for nebulization 2.5 mg (3 mL) inhalation Q2H PRN PRN Shortness of Breath/Wheezing #0 mL 04/05/22 food supplemt, lactose-reduced 0.08 gram-1.5 kcal/mL oral liquid (Ensure Enlive) 120 ml PO 4X/DAY #0 mL 04/05/22 levofloxacin 750 mg tablet 750 mg PO DAILY . #5 tabs 04/05/22 Hospital Course Summary of Care Provided Minutes Spent on Discharge: 35 Hospital Course: Patient is a 56-year-old gentleman with underlying history of autism with recent diagnosis of pneumonia admitted with low oxygen saturation 1.? Acute respiratory insufficiency ? Secondary to pneumonia.? Patient has been admitted to regular nursing floor managed with Rocephin and azithromycin placed on supplemental oxygen which is currently being titrated to keep oxygen saturation greater than 90 ? 04/04/2022; no significant change in patient's clinical condition following admission plan is to try to wean of oxygen and assess patient for possible discharge 2.? Mild MRDD ? Supportive care 3.? Seizure disorder ? Did continue patient on seizure medication 4.? Recurrent constipation ? Did continue patient bowel regimen 5.? DVT prophylaxis ? Low risk encourage early ambulation 6. ?Moderate malnutrition ? Related to acute illness and inability to consume adequate energy intake as evidenced by <50% po intake and 6.25% wt loss x > 1 mo- pt also w/ fat/muscle loss in upper/lower body. 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 Physical deconditioning - Requested for PT OT eval and social services aide to assist with discharge planning Physical Exam Narrative GENERAL: Flat affect HEENT: Atraumatic; EYES; Anicteric, Normal Conjunctiva NECK; supple, normal thyroid, RESPIRATORY: Diminished to auscultation bilateral rhonchi CARDIOVASCULAR: Regular S1 S2, GI: soft, normoactive bowel sounds, : No Renal angle tenderness; EXTREMITIES: No edema, no clubbing, MUSCULOSKELETAL: no muscle wasting NEURO: Awake; no lateralizing signs. SKIN: No Rash PSYCH; Flat affect Weight / BMI Weight Weight: 94.6 kg Body Mass Index (BMI) 28.4 ABG / Lab / Microbiology Data Result Diagrams: 04/04/22 05:29 04/04/22 05:29 Microbiology: Microbiology 04/04/22 06:35 Sputum, Expectorated/Coughed Gram Stain - Final 04/03/22 Unknown Interface Orders Respiratory Panel (PCR) - Final 04/03/22 16:20 Urine, Clean Catch Legionella Antigen - Final 04/03/22 16:20 Urine, Clean Catch Streptococcus pneumoniae Antigen (M - Final D/C Instructions Discharge Diet: No restrictions Discharge Activity: Return to Normal Activity Call your doctor if you observe: Fever of 101 or Higher, Shortness of breath, Fainting spells and Chest pain Meaningful Use Info Meaningful Use Diagnoses (Choose all that apply): None applicable Discharge Plan Admission Admit Date/Time: 04/03/22 12:31 Attending Provider: Declan Arzola Primary Care Provider: Abe Moralez Discharge Orders/Prescriptions Prescriptions: New Ensure Enlive 0.08 gram-1.5 kcal/mL Liquid 120 ml PO 4X/DAY Qty: 0 0RF albuterol sulfate 2.5 mg /3 mL (0.083 %) Solution For Nebulization 2.5 mg inhalation Q2H PRN PRN (Reason: Shortness of Breath/Wheezing) Qty: 0 0RF Continued polyethylene glycol 3350 17 GM powder in packet 17 g PO DAILY clozapine 100 MG tablet 100 mg PO DAILY clozapine 100 MG tablet 200 mg PO QHS fluticasone propionate 1 SPRAY spray,suspension 1 spray NASAL DAILY Systane (PF) 1 EACH dropperette 1 ea OP BID PRN (Reason: eye irritation) docusate sodium 100 mg capsule 200 mg PO BID Label Comments: TAKE (2) CAPSULES BYCMOUTH TWICE DAILY. doxazosin 4 mg tablet 4 mg PO QHS Myrbetriq 25 mg tablet extended release 24 hr 25 mg PO DAILY erythromycin 5 mg/gram (0.5 %) ointment 1 applic RIGHT EYE QHS acetaminophen [Tylenol] 325 mg Tablet 650 mg PO Q4H PRN PRN (Reason: Fever, pain 1-07/03) Qty: 0 0RF albuterol sulfate [Ventolin HFA] 90 mcg/actuation HFA aerosol inhaler 2 puff inhalation Q4H PRN PRN (Reason: Wheezing) Qty: 1 0RF Rx Instructions: Dispense with Spacer Mucinex DM 30-600 mg Tablet Extended Release 12 Hr 1 tab PO Q12H PRN (Reason: Cough) lacosamide [Vimpat] 50 mg tablet 50 mg PO BID lactulose 20 gram/30 mL solution 20 g PO TID levofloxacin 750 mg tablet 750 mg PO DAILY Qty: 5 0RF Referrals / Follow Up: Abe Moralez MD [Primary Care Provider] - Within 2 Weeks Disposition Disposition (needs filled in before D/C Order can be placed): Assisted Facility Charges/Coding Visit Charges Inpatient E&M: 83909 Disch Hosp
--- NOTE | 2022-04-05 13:20 | NURSING ---
Attempted multiple times to contact facility with no avail
[2022-04-05 13:27] VITALS: BP 118/76; PULSE 66; RESP 16; TEMP 36.7; O2SAT 92
--- NOTE | 2022-04-05 13:56 | NURSING ---
Last attempt to contact [facility] was unsuccessful. Pyrotechnist was able to patch me through to floor, but no answer after 6+ rings
== END 2022-04-05 14:10 | disposition skilled nursing facility (03) | DRG 194 ==
LOC: ED 13:30 → MS3 13:52
PROVIDERS: Admitting Provider Internal Medicine; Emergency Provider Emergency Medicine; PCP Family Medicine; Visit Provider Internal Medicine
DX: J18.9 Pneumonia, unspecified organism (principal); F84.0 Autistic disorder; E44.0 Moderate protein-calorie malnutrition; G40.909 Epilepsy, unspecified, not intractable, without status epilepticus; K59.00 Constipation, unspecified; F70 Mild intellectual disabilities; R09.02 Hypoxemia; Z68.28 Body mass index [BMI] 28.0-28.9, adult; Z20.822 Contact with and (suspected) exposure to COVID-19; Z79.899 Other long term (current) drug therapy
CPT/HCPCS: 36415; 71045; 80048; 83735; 83880; 84484; 85025; 87040; 87070; 87205; 87426; 87428; 87449; 87633; 87641; 92526; 92610; 93005; 94640; 94667; 94668; 96365; 96366; 97162; 97166; 97802; 99251; 99284; J7050; A4216; G0463

== ENCOUNTER 2022-04-06 04:00 | Outpatient (REF) | payer SELFPAY ==
[2022-04-06 09:46] LABS: Hematocrit 41.2 % (40-54); Hemoglobin 13.4 g/dL (13.0-16.5); Mean Corp Hgb Conc 32.5 g/dL (32-36); Mean Corpuscular Hgb 29.8 pg (27.0-32.0); Mean Corpuscular Volume 91.8 fL (80-94); Mean Platelet Vol. 10.4 fl (6.2-12.0); Platelet Count 201 K/mm3 (150-450); RBC Distribution Width CV 14.4 % (11.6-14.6); RBC Distribution Width SD 48.7 fl (35.1-43.9); Red Blood Count 4.49 M/mm3 (4.6-6.2); White Blood Count 6.1 K/mm3 (4.4-11.0)
[2022-04-06 10:03] LABS: ALB/GLOB Ratio 0.8 RATIO (0.9-2.4); AST(SGOT) 12 U/L (15-37); Alanine Aminotransfer ALT/SGPT 20 U/L (16-61); Alkaline Phosphatase 159 U/L (45-117); Anion Gap 3 (5-15); BUN 13 mg/dL (7-18); BUN/Creat Ratio 16.8 RATIO (10-20); Calcium,Total 9.1 mg/dL (8.5-10.1); Chloride 102 mmol/L (98-107); Creatinine, Serum 0.77 mg/dL (0.70-1.30); EST Glomerular Filtration Rate 110 mL/min (>60); Est Glom Filt Rate - Afr Amer 133 mL/min (>60); Globulin 3.8 g/dL (2.2-4.2); Glucose 100 mg/dL (74-106); Potassium 3.8 mmol/L (3.5-5.1); Protein, Total 6.8 g/dL (6.4-8.2); Sodium Level 139 mmol/L (136-145)
== END 2022-04-06 23:59 | disposition home or self-care (01) ==
LOC: OLS.SW1020 04:00
PROVIDERS: PCP Family Medicine; Visit Provider Family Medicine
DX: Z02.2 Encounter for examination for admission to residential institution (principal); J18.9 Pneumonia, unspecified organism
CPT/HCPCS: 36415; 80053; 85027

== ENCOUNTER → 2022-04-17 | Outpatient (REF) | payer SELFPAY ==
[2022-04-17 08:38] LABS: Hematocrit 41.6 % (40-54); Hemoglobin 13.6 g/dL (13.0-16.5); Mean Corp Hgb Conc 32.7 g/dL (32-36); Mean Corpuscular Hgb 29.4 pg (27.0-32.0); Mean Corpuscular Volume 89.8 fL (80-94); Mean Platelet Vol. 10.7 fl (6.2-12.0); Platelet Count 238 K/mm3 (150-450); RBC Distribution Width CV 13.5 % (11.6-14.6); RBC Distribution Width SD 43.9 fl (35.1-43.9); Red Blood Count 4.63 M/mm3 (4.6-6.2); White Blood Count 5.3 K/mm3 (4.4-11.0)
[2022-04-17 09:10] LABS: Anion Gap 8 (5-15); BUN 14 mg/dL (7-18); BUN/Creat Ratio 21.3 RATIO (10-20); Calcium,Total 9.2 mg/dL (8.5-10.1); Chloride 101 mmol/L (98-107); Creatinine, Serum 0.66 mg/dL (0.70-1.30); EST Glomerular Filtration Rate 133 mL/min (>60); Est Glom Filt Rate - Afr Amer 161 mL/min (>60); Glucose 93 mg/dL (74-106); Potassium 3.7 mmol/L (3.5-5.1); Sodium Level 139 mmol/L (136-145)
== END | disposition home or self-care (01) ==
LOC: OLS.SW1020 04:00
PROVIDERS: PCP Family Medicine; Referring Provider Family Medicine; Visit Provider Family Medicine
DX: J18.9 Pneumonia, unspecified organism (principal); J96.01 Acute respiratory failure with hypoxia
CPT/HCPCS: 36415; 80048; 85027

== ENCOUNTER → 2022-06-01 | Outpatient (REF) | payer MEDICARE, MEDICAID, SELFPAY ==
[2022-06-01 07:37] LABS: Absolute Lymphocyte Count 1.37 X10^3/uL (0.83-4.51); Absolute Neutrophil Count 2.8 X10^3/uL (2.0-7.7); Basophil# 0.02 X10^3/uL; Basophil% 0.4 % (0-1); Eosinophils% 2.1 % (0-5); Hemoglobin 13.3 g/dL (13.0-16.5); Lymphocyte # 1.37 X10^3/ul (0.83-4.51); Lymphocyte % 29.1 % (19-41); Mean Corp Hgb Conc 32.4 g/dL (32-36); Mean Corpuscular Hgb 28.7 pg (27.0-32.0); Mean Corpuscular Volume 88.6 fL (80-94); Mean Platelet Vol. 11.3 fl (6.2-12.0); Monocyte# 0.43 X10^3/uL; Monocyte% 9.1 % (0-10); NRBC Flagged by Analyzer 0 % (0-5); Neutrophil # 2.77 X10^3/uL (2.7-7.7); Neutrophil % 59.1 % (47-70); Platelet Count 194 K/mm3 (150-450); RBC Distribution Width CV 13.3 % (11.6-14.6); Red Blood Count 4.63 M/mm3 (4.6-6.2); White Blood Count 4.7 K/mm3 (4.4-11.0)
== END ==
LOC: OLS.SW1020 05:00
PROVIDERS: PCP Family Medicine; Visit Provider Family Medicine
DX: J18.9 Pneumonia, unspecified organism (principal); Z79.899 Other long term (current) drug therapy
CPT/HCPCS: 36415; 85025

== ENCOUNTER → 2022-06-29 | Outpatient (REF) | payer MEDICARE, MEDICAID, SELFPAY ==
[2022-06-29 08:50] LABS: Hematocrit 39.8 % (40-54); Hemoglobin 13.4 g/dL (13.0-16.5); Mean Corp Hgb Conc 33.7 g/dL (32-36); Mean Corpuscular Hgb 29.7 pg (27.0-32.0); Mean Corpuscular Volume 88.2 fL (80-94); Mean Platelet Vol. 10.9 fl (6.2-12.0); Platelet Count 193 K/mm3 (150-450); RBC Distribution Width CV 13.7 % (11.6-14.6); RBC Distribution Width SD 44.1 fl (35.1-43.9); Red Blood Count 4.51 M/mm3 (4.6-6.2); White Blood Count 5.6 K/mm3 (4.4-11.0)
== END ==
LOC: OLS.SW1020 05:00
PROVIDERS: PCP Family Medicine; Visit Provider Family Medicine
DX: R53.83 Other fatigue (principal)
CPT/HCPCS: 36415; 85027

== ENCOUNTER → 2022-07-03 | Outpatient (REF) | payer MEDICARE, MEDICAID, SELFPAY ==
[2022-07-03 09:52] LABS: Absolute Lymphocyte Count 1.67 X10^3/uL (0.83-4.51); Absolute Neutrophil Count 2.4 X10^3/uL (2.0-7.7); Basophil# 0.04 X10^3/uL; Basophil% 0.8 % (0-1); Eosinophil# 0.13 X10^3/uL; Eosinophils% 2.7 % (0-5); Hematocrit 39.9 % (40-54); Lymphocyte # 1.67 X10^3/ul (0.83-4.51); Lymphocyte % 35.2 % (19-41); Mean Corp Hgb Conc 32.6 g/dL (32-36); Mean Corpuscular Volume 88.9 fL (80-94); Mean Platelet Vol. 11.5 fl (6.2-12.0); Monocyte# 0.51 X10^3/uL; Monocyte% 10.8 % (0-10); NRBC Flagged by Analyzer 0 % (0-5); Neutrophil # 2.38 X10^3/uL (2.7-7.7); Neutrophil % 50.3 % (47-70); Platelet Count 199 K/mm3 (150-450); RBC Distribution Width SD 44.9 fl (35.1-43.9); Red Blood Count 4.49 M/mm3 (4.6-6.2); White Blood Count 4.7 K/mm3 (4.4-11.0)
== END ==
LOC: OLS.SW1020 05:00
PROVIDERS: PCP Family Medicine; Visit Provider Family Medicine
DX: Z79.899 Other long term (current) drug therapy (principal)
CPT/HCPCS: 36415; 85025

== ENCOUNTER → 2022-07-26 | Outpatient (CLI) | payer MEDICARE, MEDICAID, SELFPAY ==
[2022-07-26 15:33] LABS: Absolute Lymphocyte Count 1.22 X10^3/uL (0.83-4.51); Absolute Neutrophil Count 7.7 X10^3/uL (2.0-7.7); Basophil# 0.04 X10^3/uL; Basophil% 0.4 % (0-1); Eosinophil# 0.09 X10^3/uL; Eosinophils% 0.9 % (0-5); Hematocrit 42.9 % (40-54); Hemoglobin 14.3 g/dL (13.0-16.5); Lymphocyte # 1.22 X10^3/ul (0.83-4.51); Lymphocyte % 12.4 % (19-41); Mean Corp Hgb Conc 33.3 g/dL (32-36); Mean Corpuscular Hgb 29.3 pg (27.0-32.0); Mean Corpuscular Volume 87.9 fL (80-94); Monocyte# 0.74 X10^3/uL; Monocyte% 7.5 % (0-10); NRBC Flagged by Analyzer 0 % (0-5); Neutrophil % 78.5 % (47-70); Platelet Count 242 K/mm3 (150-450); RBC Distribution Width CV 13.8 % (11.6-14.6); RBC Distribution Width SD 43.9 fl (35.1-43.9); Red Blood Count 4.88 M/mm3 (4.6-6.2); White Blood Count 9.8 K/mm3 (4.4-11.0)
== END | disposition home or self-care (01) ==
PROVIDERS: PCP Family Medicine
DX: F29 Unspecified psychosis not due to a substance or known physiological condition (principal); F84.0 Autistic disorder
CPT/HCPCS: 85025

== ENCOUNTER → 2022-08-14 | Outpatient (CLI) | payer MEDICARE, MEDICAID, SELFPAY ==
[2022-08-14 07:57] LABS: Absolute Lymphocyte Count 1.12 X10^3/uL (0.83-4.51); Basophil# 0.03 X10^3/uL; Basophil% 0.8 % (0-1); Eosinophil# 0.12 X10^3/uL; Eosinophils% 3.3 % (0-5); Hematocrit 42.2 % (40-54); Hemoglobin 14.2 g/dL (13.0-16.5); Lymphocyte # 1.12 X10^3/ul (0.83-4.51); Lymphocyte % 30.6 % (19-41); Mean Corp Hgb Conc 33.6 g/dL (32-36); Mean Corpuscular Hgb 29.3 pg (27.0-32.0); Mean Platelet Vol. 11.6 fl (6.2-12.0); Monocyte# 0.35 X10^3/uL; Monocyte% 9.6 % (0-10); NRBC Flagged by Analyzer 0 % (0-5); Neutrophil # 2.03 X10^3/uL (2.7-7.7); Neutrophil % 55.4 % (47-70); POSITIVE COUNT YES; Platelet Count 143 K/mm3 (150-450); RBC Distribution Width CV 14.3 % (11.6-14.6); RBC Distribution Width SD 45.2 fl (35.1-43.9); Red Blood Count 4.85 M/mm3 (4.6-6.2); White Blood Count 3.7 K/mm3 (4.4-11.0)
[2022-08-14 09:12] LABS: Differential Comment SCANNED; Differential Indicated SCAN CRITERIA MET
[2022-08-14 09:13] LABS: Platelet Estimate ADEQUATE (ADEQ); Platelet Morphology LARGE
== END | disposition home or self-care (01) ==
LOC: LABSPEC 07:40
PROVIDERS: PCP Family Medicine; Visit Provider Internal Medicine
DX: F29 Unspecified psychosis not due to a substance or known physiological condition (principal); F84.0 Autistic disorder
CPT/HCPCS: 85025

== ENCOUNTER → 2022-09-07 | Outpatient (CLI) | payer MEDICARE, MEDICAID, SELFPAY ==
[2022-09-07 06:59] LABS: Absolute Lymphocyte Count 0.79 X10^3/uL (0.83-4.51); Absolute Neutrophil Count 2.8 X10^3/uL (2.0-7.7); Basophil# 0.03 X10^3/uL; Basophil% 0.7 % (0-1); Eosinophil# 0.01 X10^3/uL; Eosinophils% 0.2 % (0-5); Hematocrit 39.5 % (40-54); Hemoglobin 12.9 g/dL (13.0-16.5); Lymphocyte # 0.79 X10^3/ul (0.83-4.51); Lymphocyte % 17.3 % (19-41); Mean Corp Hgb Conc 32.7 g/dL (32-36); Mean Corpuscular Hgb 28.7 pg (27.0-32.0); Mean Corpuscular Volume 87.8 fL (80-94); Monocyte% 19.7 % (0-10); NRBC Flagged by Analyzer 0 % (0-5); Neutrophil # 2.81 X10^3/uL (2.7-7.7); Neutrophil % 61.7 % (47-70); Platelet Count 214 K/mm3 (150-450); RBC Distribution Width CV 13.7 % (11.6-14.6); RBC Distribution Width SD 44.3 fl (35.1-43.9); White Blood Count 4.6 K/mm3 (4.4-11.0)
== END | disposition home or self-care (01) ==
LOC: LABSPEC 06:51
PROVIDERS: PCP Family Medicine; Visit Provider Internal Medicine
DX: F29 Unspecified psychosis not due to a substance or known physiological condition (principal); F84.0 Autistic disorder
CPT/HCPCS: 85025

== ENCOUNTER → 2022-09-28 | Outpatient (CLI) | payer MEDICARE, MEDICAID, SELFPAY ==
[2022-09-28 08:12] LABS: Absolute Lymphocyte Count 1.24 X10^3/uL (0.83-4.51); Absolute Neutrophil Count 2.1 X10^3/uL (2.0-7.7); Basophil# 0.05 X10^3/uL; Basophil% 1.3 % (0-1); Eosinophil# 0.07 X10^3/uL; Eosinophils% 1.8 % (0-5); Hematocrit 44.4 % (40-54); Hemoglobin 14.4 g/dL (13.0-16.5); Lymphocyte # 1.24 X10^3/ul (0.83-4.51); Lymphocyte % 31.9 % (19-41); Mean Corp Hgb Conc 32.4 g/dL (32-36); Mean Corpuscular Hgb 28.9 pg (27.0-32.0); Mean Platelet Vol. 11.4 fl (6.2-12.0); Monocyte% 10.3 % (0-10); NRBC Flagged by Analyzer 0 % (0-5); Neutrophil # 2.12 X10^3/uL (2.7-7.7); Neutrophil % 54.4 % (47-70); POSITIVE COUNT YES; RBC Distribution Width CV 13.4 % (11.6-14.6); RBC Distribution Width SD 43.3 fl (35.1-43.9); Red Blood Count 4.99 M/mm3 (4.6-6.2); White Blood Count 3.9 K/mm3 (4.4-11.0)
[2022-09-28 08:53] LABS: Differential Indicated SCAN CRITERIA MET
[2022-09-28 08:54] LABS: Platelet Estimate ADEQUATE (ADEQ)
== END | disposition home or self-care (01) ==
LOC: LABSPEC 07:37
PROVIDERS: PCP Family Medicine; Referring Provider Internal Medicine; Visit Provider Internal Medicine
DX: F29 Unspecified psychosis not due to a substance or known physiological condition (principal); F84.0 Autistic disorder
CPT/HCPCS: 85025

== ENCOUNTER → 2022-10-16 | Outpatient (CLI) | payer MEDICARE, MEDICAID, SELFPAY ==
[2022-10-16 07:08] LABS: Absolute Lymphocyte Count 1.39 X10^3/uL (0.83-4.51); Basophil# 0.05 X10^3/uL; Eosinophil# 0.14 X10^3/uL; Eosinophils% 2.8 % (0-5); Hematocrit 42.7 % (40-54); Hemoglobin 14.3 g/dL (13.0-16.5); Lymphocyte # 1.39 X10^3/ul (0.83-4.51); Lymphocyte % 27.5 % (19-41); Mean Corp Hgb Conc 33.5 g/dL (32-36); Mean Corpuscular Hgb 29.1 pg (27.0-32.0); Mean Platelet Vol. 10.7 fl (6.2-12.0); Monocyte% 9.9 % (0-10); NRBC Flagged by Analyzer 0 % (0-5); Neutrophil # 2.96 X10^3/uL (2.7-7.7); Neutrophil % 58.6 % (47-70); Platelet Count 205 K/mm3 (150-450); RBC Distribution Width CV 13.7 % (11.6-14.6); RBC Distribution Width SD 43.4 fl (35.1-43.9); Red Blood Count 4.91 M/mm3 (4.6-6.2); White Blood Count 5.1 K/mm3 (4.4-11.0)
== END | disposition home or self-care (01) ==
LOC: LAB.FUTURE 06:59 → LABSPEC 06:59
PROVIDERS: PCP Family Medicine; Visit Provider Internal Medicine
DX: F29 Unspecified psychosis not due to a substance or known physiological condition (principal); F84.0 Autistic disorder
CPT/HCPCS: 85025

== ENCOUNTER 2022-11-06 07:41 | Outpatient (RCR) | payer MEDICARE, MEDICAID, SELFPAY ==
[2022-11-06 07:59] LABS: Absolute Lymphocyte Count 1.34 X10^3/uL (0.83-4.51); Basophil# 0.03 X10^3/uL; Basophil% 0.6 % (0-1); Eosinophil# 0.14 X10^3/uL; Eosinophils% 2.8 % (0-5); Hematocrit 42.6 % (40-54); Hemoglobin 14.1 g/dL (13.0-16.5); Lymphocyte # 1.34 X10^3/ul (0.83-4.51); Mean Corp Hgb Conc 33.1 g/dL (32-36); Mean Corpuscular Hgb 29.3 pg (27.0-32.0); Mean Corpuscular Volume 88.4 fL (80-94); Mean Platelet Vol. 11.1 fl (6.2-12.0); Monocyte# 0.48 X10^3/uL; Monocyte% 9.7 % (0-10); NRBC Flagged by Analyzer 0 % (0-5); Neutrophil # 2.96 X10^3/uL (2.7-7.7); Neutrophil % 59.7 % (47-70); Platelet Count 171 K/mm3 (150-450); RBC Distribution Width CV 13.7 % (11.6-14.6); RBC Distribution Width SD 44.2 fl (35.1-43.9); Red Blood Count 4.82 M/mm3 (4.6-6.2)
== END 2022-11-21 23:59 ==
LOC: LABSPEC 07:41
PROVIDERS: PCP Family Medicine; Visit Provider Internal Medicine
DX: F29 Unspecified psychosis not due to a substance or known physiological condition (principal); F84.0 Autistic disorder
CPT/HCPCS: 85025

== ENCOUNTER → 2022-11-29 | Outpatient (CLI) | payer MEDICARE, MEDICAID, SELFPAY ==
[2022-11-29 06:40] LABS: Absolute Lymphocyte Count 1.14 X10^3/uL (0.83-4.51); Absolute Neutrophil Count 3.2 X10^3/uL (2.0-7.7); Basophil# 0.03 X10^3/uL; Basophil% 0.6 % (0-1); Eosinophil# 0.09 X10^3/uL; Eosinophils% 1.8 % (0-5); Hematocrit 43.9 % (40-54); Hemoglobin 14.7 g/dL (13.0-16.5); Lymphocyte # 1.14 X10^3/ul (0.83-4.51); Lymphocyte % 22.4 % (19-41); Mean Corp Hgb Conc 33.5 g/dL (32-36); Mean Corpuscular Hgb 29.3 pg (27.0-32.0); Mean Corpuscular Volume 87.5 fL (80-94); Mean Platelet Vol. 11.1 fl (6.2-12.0); Monocyte# 0.59 X10^3/uL; Monocyte% 11.6 % (0-10); NRBC Flagged by Analyzer 0 % (0-5); Neutrophil # 3.24 X10^3/uL (2.7-7.7); Neutrophil % 63.4 % (47-70); Platelet Count 178 K/mm3 (150-450); RBC Distribution Width CV 13.6 % (11.6-14.6); RBC Distribution Width SD 43.5 fl (35.1-43.9); Red Blood Count 5.02 M/mm3 (4.6-6.2); White Blood Count 5.1 K/mm3 (4.4-11.0)
== END | disposition home or self-care (01) ==
PROVIDERS: PCP Family Medicine; Referring Provider Internal Medicine; Visit Provider Internal Medicine
DX: F29 Unspecified psychosis not due to a substance or known physiological condition (principal); F84.0 Autistic disorder
CPT/HCPCS: 85025

== ENCOUNTER 2022-12-19 07:28 | Outpatient (RCR) | payer MEDICARE, MEDICAID, SELFPAY ==
[2022-12-19 07:38] LABS: Absolute Lymphocyte Count 1.32 X10^3/uL (0.83-4.51); Absolute Neutrophil Count 2.1 X10^3/uL (2.0-7.7); Basophil# 0.04 X10^3/uL; Eosinophil# 0.09 X10^3/uL; Eosinophils% 2.2 % (0-5); Hemoglobin 14.6 g/dL (13.0-16.5); Lymphocyte # 1.32 X10^3/ul (0.83-4.51); Lymphocyte % 32.6 % (19-41); Mean Corp Hgb Conc 33.2 g/dL (32-36); Mean Corpuscular Hgb 29.2 pg (27.0-32.0); Mean Platelet Vol. 11.6 fl (6.2-12.0); Monocyte# 0.46 X10^3/uL; Monocyte% 11.4 % (0-10); NRBC Flagged by Analyzer 0 % (0-5); Neutrophil # 2.13 X10^3/uL (2.7-7.7); Neutrophil % 52.6 % (47-70); Platelet Count 169 K/mm3 (150-450); RBC Distribution Width CV 13.4 % (11.6-14.6); RBC Distribution Width SD 42.7 fl (35.1-43.9); White Blood Count 4.1 K/mm3 (4.4-11.0)
== END 2022-12-22 23:59 ==
LOC: LABSPEC 07:28
PROVIDERS: PCP Family Medicine; Visit Provider Internal Medicine
DX: F29 Unspecified psychosis not due to a substance or known physiological condition (principal); F84.0 Autistic disorder
CPT/HCPCS: 85025

== ENCOUNTER 2023-01-11 08:10 | Outpatient (RCR) | payer MEDICARE, MEDICAID, SELFPAY ==
[2023-01-11 12:08] LABS: Absolute Lymphocyte Count 1.21 X10^3/uL (0.83-4.51); Absolute Neutrophil Count 4.4 X10^3/uL (2.0-7.7); Basophil# 0.03 X10^3/uL; Basophil% 0.4 % (0-1); Eosinophil# 0.13 X10^3/uL; Eosinophils% 1.9 % (0-5); Hematocrit 41.7 % (40-54); Lymphocyte # 1.21 X10^3/ul (0.83-4.51); Lymphocyte % 17.8 % (19-41); Mean Corp Hgb Conc 33.6 g/dL (32-36); Mean Corpuscular Hgb 29.5 pg (27.0-32.0); Mean Platelet Vol. 11.5 fl (6.2-12.0); Monocyte# 0.98 X10^3/uL; Monocyte% 14.4 % (0-10); NRBC Flagged by Analyzer 0 % (0-5); Neutrophil # 4.43 X10^3/uL (2.7-7.7); Neutrophil % 65.4 % (47-70); Platelet Count 169 K/mm3 (150-450); RBC Distribution Width CV 13.9 % (11.6-14.6); RBC Distribution Width SD 44.8 fl (35.1-43.9); Red Blood Count 4.74 M/mm3 (4.6-6.2); White Blood Count 6.8 K/mm3 (4.4-11.0)
== END 2023-01-21 23:59 ==
LOC: LABSPEC 08:10
PROVIDERS: PCP Family Medicine; Referring Provider Internal Medicine; Visit Provider Internal Medicine
DX: F29 Unspecified psychosis not due to a substance or known physiological condition (principal); F84.0 Autistic disorder
CPT/HCPCS: 85025

== ENCOUNTER 2023-01-26 09:33 | Inpatient (IN) | payer MEDICARE, MEDICAID, SELFPAY ==
[2023-01-26 09:35] VITALS: BP 129/111; PULSE 86; RESP 20; TEMP 36.4; O2SAT 95
[2023-01-26 09:53] VITALS: BMI 26.9
--- NOTE | 2023-01-26 10:12 | EDS_ITS ---
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
--- NOTE | 2023-01-26 10:12 | EX.ED.DYSGE1 ---
HPI History of Present Illness Chief Complaint: Wound Informant: patient and other ([facility] at [facility]) Narrative Narrative: Patient is a 57-year-old male with history of cognitive impairment, seizures, autism and visual deficits presenting with wound to his right thumb. Staff at his facility noticed it today. They are not sure along is actually been there. No report of any fevers. Patient also has possible pressure wound to his right hip that they wanted to have evaluated. No other complaints at this time. Per staff patient is at his baseline. Patient is asking for lunch. [facility] Medical History Autism Cognitive impairment Constipation Non-smoker Seizure disorder Seizures Home Medications clozapine 100 mg tablet 100 mg PO DAILY anxiety 07/24/16 [History Last Taken 04/03/22] clozapine 100 mg tablet 200 mg PO QHS anxiety 07/24/16 [History Last Taken 04/02/22] fluticasone propionate 50 mcg/actuation nasal spray,suspension 1 spray DAILY allergies 07/24/16 [History Last Taken 04/03/22] peg 400-propylene glycol (PF) 0.4 %-0.3 % eye drops in a dropperette (Systane (PF)) 1 ea OP BID PRN eye irritation 07/24/16 [History Last Taken 03/30/22] polyethylene glycol 3350 17 gram oral powder packet 17 g PO DAILY constipation 07/24/16 [History Last Taken 04/03/22] docusate sodium 100 mg capsule 200 mg PO BID constipation 02/10/22 [History Last Taken 04/03/22] doxazosin 4 mg tablet 4 mg PO QHS htn 02/10/22 [History Last Taken 04/02/22] acetaminophen 325 mg tablet (Tylenol) 650 mg PO Q4H PRN PRN Fever, pain 1-07/03 #0 tabs 02/19/22 [Rx Last Taken Unknown] albuterol sulfate 90 mcg/actuation aerosol inhaler (Ventolin HFA) 2 puff inhalation Q4H PRN PRN Wheezing ##1 03/14/22 [Rx Last Taken 04/02/22] lacosamide 50 mg tablet (Vimpat) 50 mg PO BID . 04/03/22 [History Last Taken 04/03/22] lactulose 20 gram/30 mL oral solution 20 g PO TID . 04/03/22 [History Last Taken 04/03/22] albuterol sulfate 2.5 mg/3 mL (0.083 %) solution for nebulization 2.5 mg (3 mL) inhalation Q2H PRN PRN Shortness of Breath/Wheezing #0 mL 04/05/22 [Rx Last Taken Unknown] levetiracetam 500 mg tablet (Keppra) 500 mg PO BID 01/26/23 [History Last Taken Unknown] Allergy/AdvReac Type Severity Reaction Status Date / Time No Known Allergies Allergy Verified 01/26/23 09:34 Family History Mother Seizures COPD (chronic obstructive pulmonary disease) Father Glaucoma Surgical History History of lingual frenulectomy History of rectal surgery Social History housing: other details: retirement. Smoking Status: Never smoker alcohol intake: never substance use type: does not use ROS ROS ED Review of Systems ROS Unobtainable: due to mental condition Constitutional Constitutional ED: Denies fever(s) Integumentary Reports other Details: wound to right thumb and right hip EXAM Physical Exam Const Vital Signs: 01/26/23 09:35 Temperature 97.6 F L Temperature Source Temporal Pulse Rate 86 Respiratory Rate 20 H Blood Pressure 129/111 H Blood Pressure Mean 117 Pulse Ox 95 Oxygen Delivery Method Room Air Positive well nourished and well developed General Appearance ED: well developed and NAD HEENT Reports moist mucous membranes Eyes General Eye ED: Negative for pale conjunctiva Neck supple Chest Wall inspection of chest normal and palpation of chest normal Resp normal respiratory effort and clear to auscultation bilaterally GI normal to inspection, nondistended, normoactive bowel sounds and non-tender Extremity Extremity Narrative: Edema and paronychia him to the base of the right thumb. Normal range of motion of the thumb. Normal range of motion of the wrist. Pelvis is stable. No bony tenderness of the hips. Neuro Neuro Narrative: At baseline Sensorium / Orientation: alert Motor Exam: Negative for general weakness Psych Psych Narrative: Acting appropriate Skin Skin Narrative: Paronychia at the base of the right thumb. No active drainage. There is lymphangitic streaking running approximately to about 2 cm distal to the elbow. Patient has a Band-Aid over his right pinky finger and underneath that there is some maceration some localized erythema to the right pinky cuticle and the nail appears to have been ground down to the nail fold itself. As well area of abrasion to the right hip with about 1 cm surrounding erythema. No associated fluctuance. This is nontender to palpation. This looks more reactive from an abrasion. MDM MDM MDM Narrative Medical decision making narrative: Patient is evaluated for a wound to his right thumb. Physical exam is consistent with an infected paronychia with associated lymphangitic streaking. Patient overall is well-appearing. He just keeps asking to order lunch. His CBC is normal, he does have a mildly elevated CRP of 37 however his ESR is normal. No significant electrolyte abnormalities. Given the extensive lymphangitic streaking and the fact that the patient is not particular reliable with his cognitive deficits I do think he would benefit from admission for IV antibiotics overnight. He is ordered IV vancomycin. Drainage of the paronychia him with wound culture performed by myself at the bedside. The finger is soaked in warm soapy water. Lead is then applied for better analgesia. The bevel of an 18-gauge needle is used to pull back the cuticle. Purulent drainage is expressed. Patient tolerated this well with no immediate complications. Case is discussed with admitting physician, Dr. Arzola who accepts the patient. Differential includes infected paronychia, cellulitis, osteomyelitis and necrotizing fasciitis. Given their overall is well-appearing with normal white counts and no crepitus low suspicion for necrotizing fasciitis. No signs of bony involvement on x-ray. Normal ESR so less likely to have osteomyelitis. Lab Data Labs: Laboratory Results - last 24 hr 01/26/23 01/26/23 10:25 10:25 WBC 6.9 RBC 5.11 Hgb 14.9 Hct 46.1 MCV 90.2 MCH 29.2 MCHC 32.3 RDW Std Deviation 43.2 RDW Coeff of Carlos 13.2 Plt Count 182 MPV 10.9 Immature Gran % (Auto) 0.400 Neut % (Auto) 72.4 H Lymph % (Auto) 16.0 L [place] % (Auto) 9.5 Eos % (Auto) 1.3 Baso % (Auto) 0.4 Absolute Neuts (auto) 5.0 Absolute Lymphs (auto) 1.10 Nucleated RBC % 0 ESR 18 Sodium 141 Potassium 3.7 Chloride 104 Carbon Dioxide 32.0 Anion Gap 5 BUN 9 Creatinine 0.67 L Estim Creat Clear Calc 133.52 Est GFR (MDRD) Af Amer 158 Est GFR (MDRD) Non-Af 130 BUN/Creatinine Ratio 13.5 Glucose 139 H Calcium 9.3 C-React Prot Ext Range 37.00 H Radiography Diagnostic Testing: Clinical Impression(s) from Imaging Studies Finger X-Ray 01/26/23 10:40 IMPRESSION: Soft tissue swelling. Electronically Signed: Nelson Dodd MD at 11:03 EDT , Right thumb x-ray?soft tissue swelling with no acute bony abnormality. Interpreted by ER physician as well as radiology. Discharge Plan Triage Chief Complaint: Wound ED Provider: Shira Ashley Dx/Rx/DC Orders Clinical Impression: Acute paronychia of right thumb, Cellulitis of right upper extremity, Abrasion of hip, right Prescriptions: No Action polyethylene glycol 3350 17 GM powder in packet 17 g PO DAILY clozapine 100 MG tablet 100 mg PO DAILY clozapine 100 MG tablet 200 mg PO QHS fluticasone propionate 1 SPRAY spray,suspension 1 spray NASAL DAILY Systane (PF) 1 EACH dropperette 1 ea OP BID PRN (Reason: eye irritation) docusate sodium 100 mg capsule 200 mg PO BID Label Comments: TAKE (2) CAPSULES BYCMOUTH TWICE DAILY. doxazosin 4 mg tablet 4 mg PO QHS acetaminophen [Tylenol] 325 mg Tablet 650 mg PO Q4H PRN PRN (Reason: Fever, pain 1-07/03) Qty: 0 0RF albuterol sulfate [Ventolin HFA] 90 mcg/actuation HFA aerosol inhaler 2 puff inhalation Q4H PRN PRN (Reason: Wheezing) Qty: 1 0RF Rx Instructions: Dispense with Spacer lacosamide [Vimpat] 50 mg tablet 50 mg PO BID lactulose 20 gram/30 mL solution 20 g PO TID albuterol sulfate 2.5 mg /3 mL (0.083 %) Solution For Nebulization 2.5 mg inhalation Q2H PRN PRN (Reason: Shortness of Breath/Wheezing) Qty: 0 0RF levetiracetam [Keppra] 500 mg Tablet 500 mg PO BID Primary Care Provider: Abe Moralez Referrals: Abe Moralez MD [Primary Care Provider] - Disposition Disposition: Acute Care Hospital [facility]
--- NOTE | 2023-01-26 10:40 | RAD_ITS ---
STUDY: X-RAY - RIGHT HAND, ATTENTION RIGHT THUMB. REASON FOR EXAM: Male, 57 years old. Swelling of the right thumb. TECHNIQUE: view(s) of the finger were obtained. COMPARISON: None. FINDINGS: Normal metacarpal head. Normal metacarpophalangeal joint. Normal proximal phalanx. Normal distal phalanx. Normal distal interphalangeal joint. RAD/Finger(s) Min 2 Views IMPRESSION: Soft tissue swelling. Electronically Signed: Nelson Dodd MD at 11:03 EDT ,
[2023-01-26 10:43] LABS: Erythrocyte Sedimentation Rate 18 mm/hr (0-20)
[2023-01-26 10:45] LABS: Basophil# 0.03 X10^3/uL; Basophil% 0.4 % (0-1); Eosinophil# 0.09 X10^3/uL; Eosinophils% 1.3 % (0-5); Hematocrit 46.1 % (40-54); Hemoglobin 14.9 g/dL (13.0-16.5); Mean Corp Hgb Conc 32.3 g/dL (32-36); Mean Corpuscular Hgb 29.2 pg (27.0-32.0); Mean Corpuscular Volume 90.2 fL (80-94); Mean Platelet Vol. 10.9 fl (6.2-12.0); Monocyte# 0.65 X10^3/uL; Monocyte% 9.5 % (0-10); NRBC Flagged by Analyzer 0 % (0-5); Neutrophil # 4.96 X10^3/uL (2.7-7.7); Neutrophil % 72.4 % (47-70); Platelet Count 182 K/mm3 (150-450); RBC Distribution Width CV 13.2 % (11.6-14.6); RBC Distribution Width SD 43.2 fl (35.1-43.9); Red Blood Count 5.11 M/mm3 (4.6-6.2); White Blood Count 6.9 K/mm3 (4.4-11.0)
[2023-01-26 10:48] LABS: Anion Gap 5 (5-15); BUN 9 mg/dL (7-18); BUN/Creat Ratio 13.5 RATIO (10-20); Calcium,Total 9.3 mg/dL (8.5-10.1); Chloride 104 mmol/L (98-107); Creatinine, Serum 0.67 mg/dL (0.70-1.30); EST Glomerular Filtration Rate 130 mL/min (>60); Est Glom Filt Rate - Afr Amer 158 mL/min (>60); Estimated Creatinine Clearance 133.52 ml/min; Glucose 139 mg/dL (74-106); Potassium 3.7 mmol/L (3.5-5.1); Sodium Level 141 mmol/L (136-145)
[2023-01-26 11:37] VITALS: BP 144/79; PULSE 65; RESP 18; TEMP 36.4; O2SAT 95; O2SAT 96
[2023-01-26 11:38] VITALS: BP 144/79; PULSE 64; RESP 18; TEMP 36.4; O2SAT 95
--- NOTE | 2023-01-26 11:58 | ED.RN ---
pt father ivon notified of admission and room number by this rn.
--- NOTE | 2023-01-26 12:04 | ED.RN ---
AT 1204 PT IV SITE P/W/D NO S/S OF INFILTRATION. PT DENIES ANY PAIN AT IV SITE. IV VANCOMYCIN INFUSING AT 167 ML/HR PRIOR TO PT BEING TAKEN TO ADMISSION ROOM.
--- NOTE | 2023-01-26 12:07 | PCM.HP.STD ---
HPI - General General Date of Admission: 01/26/23 Date of Service: 01/26/23 Chief Complaint: Right thumb swelling HPI Narrative MORE SALAZAR, is a 57 M with past medical history significant for seizure disorder, MRDD resident at a residential brought to the emergency department brought to the emergency department the residential noticed significant right thumb swelling. Patient was assessed in the emergency department found to have paronychia incision and drainage performed. Cultures sent and started on antibiotics in view of streaking up his right forearm. Subsequently admitted to regular nursing floor for further management [facility] Medical History Autism Cognitive impairment Constipation Non-smoker Seizure disorder Seizures Home Medications clozapine 100 mg tablet 100 mg PO DAILY anxiety 07/24/16 [History Last Taken 04/03/22] clozapine 100 mg tablet 200 mg PO QHS anxiety 07/24/16 [History Last Taken 04/02/22] fluticasone propionate 50 mcg/actuation nasal spray,suspension 1 spray DAILY allergies 07/24/16 [History Last Taken 04/03/22] peg 400-propylene glycol (PF) 0.4 %-0.3 % eye drops in a dropperette (Systane (PF)) 1 ea OP BID PRN eye irritation 07/24/16 [History Last Taken 03/30/22] polyethylene glycol 3350 17 gram oral powder packet 17 g PO DAILY constipation 07/24/16 [History Last Taken 04/03/22] docusate sodium 100 mg capsule 200 mg PO BID constipation 02/10/22 [History Last Taken 04/03/22] doxazosin 4 mg tablet 4 mg PO QHS htn 02/10/22 [History Last Taken 04/02/22] acetaminophen 325 mg tablet (Tylenol) 650 mg PO Q4H PRN PRN Fever, pain 1-07/03 #0 tabs 02/19/22 [Rx Last Taken Unknown] albuterol sulfate 90 mcg/actuation aerosol inhaler (Ventolin HFA) 2 puff inhalation Q4H PRN PRN Wheezing ##1 03/14/22 [Rx Last Taken 04/02/22] lacosamide 50 mg tablet (Vimpat) 50 mg PO BID . 04/03/22 [History Last Taken 04/03/22] lactulose 20 gram/30 mL oral solution 20 g PO TID . 04/03/22 [History Last Taken 04/03/22] albuterol sulfate 2.5 mg/3 mL (0.083 %) solution for nebulization 2.5 mg (3 mL) inhalation Q2H PRN PRN Shortness of Breath/Wheezing #0 mL 04/05/22 [Rx Last Taken Unknown] levetiracetam 500 mg tablet (Keppra) 500 mg PO BID 01/26/23 [History Last Taken Unknown] Allergy/AdvReac Type Severity Reaction Status Date / Time No Known Allergies Allergy Verified 01/26/23 09:34 Family History Mother Seizures COPD (chronic obstructive pulmonary disease) Father Glaucoma Surgical History History of lingual frenulectomy History of rectal surgery Social History housing: other details: half-way. Smoking Status: Never smoker alcohol intake: never substance use type: does not use ROS ROS Narrative GENERAL: denies fever, chills, night sweats, weight loss, anorexia HEENT: denies headache, sinus congestion, or drainage, dysphagia RESPIRATORY: denies cough, sputum production, shortness of breath, dyspnea on exertion CARDIAC: denies chest pain, palpitations, orthopnea, PND GASTROINTESTINAL: denies abdominal pain, nausea, vomiting, melena, GENITOURINARY: denies dysuria, urgency, frequency, heamaturia EXTREMITY: denies swelling MUSCULOSKELETAL: Right thumb swelling NEUROLOGIC: denies focal numbness, weakness, tingling HEMATOLOGIC: denies easy bruising and/or hemorrhage INTEGUMENT: denies rashes PSYCHIATRIC: denies suicidal or homicidal ideation Vital Signs Vital Signs Vital Signs: 01/26/23 09:35 01/26/23 11:37 01/26/23 11:37 Temperature 97.6 F L 97.6 F L Temperature Source Temporal Temporal Pulse Rate 86 65 65 Respiratory Rate 20 H 18 18 Blood Pressure 129/111 H 144/79 H 144/79 H Blood Pressure Mean 117 100 100 Pulse Ox 95 95 96 Oxygen Delivery Method Room Air Room Air Room Air 01/26/23 11:38 Temperature 97.6 F L Temperature Source Temporal Pulse Rate 64 Respiratory Rate 18 Blood Pressure 144/79 H Blood Pressure Mean 100 Pulse Ox 95 Oxygen Delivery Method Room Air Weight Weight: 90.4 kg Body Mass Index (BMI) 26.9 Physical Exam Narrative GENERAL: cooperative HEENT: Atraumatic; normocephalic EYES; Anicteric, Normal Conjunctiva NECK; supple, normal thyroid, RESPIRATORY: Diminished to auscultation CARDIOVASCULAR: Regular S1 S2, GI: soft, normoactive bowel sounds, : No Renal angle tenderness; EXTREMITIES: Right thumb swelling with erythema and warmth with streaking up his forearm MUSCULOSKELETAL: no muscle wasting NEURO: Awake; no lateralizing signs. SKIN: As discussed above PSYCH; Flat affect Results Lab / Micro Data Result Diagrams: 01/26/23 10:25 01/26/23 10:25 Labs: Laboratory Results - last 24 hr 01/26/23 10:25: WBC 6.9, RBC 5.11, Hgb 14.9, Hct 46.1, MCV 90.2, MCH 29.2, MCHC 32.3, RDW Std Deviation 43.2, RDW Coeff of Carlos 13.2, Plt Count 182, MPV 10.9, Immature Gran % (Auto) 0.400, Neut % (Auto) 72.4 H, Lymph % (Auto) 16.0 L, [place] % (Auto) 9.5, Eos % (Auto) 1.3, Baso % (Auto) 0.4, Absolute Neuts (auto) 5.0, Absolute Lymphs (auto) 1.10, Nucleated RBC % 0, ESR 18 01/26/23 10:25: Sodium 141, Potassium 3.7, Chloride 104, Carbon Dioxide 32.0, Anion Gap 5, BUN 9, Creatinine 0.67 L, Estim Creat Clear Calc 133.52, Est GFR (MDRD) Af Amer 158, Est GFR (MDRD) Non-Af 130, BUN/Creatinine Ratio 13.5, Glucose 139 H, Calcium 9.3, C-React Prot Ext Range 37.00 H Radiology Impression Finger X-Ray 01/26/23 10:40 IMPRESSION: Soft tissue swelling. Electronically Signed: Nelson Dodd MD at 11:03 EDT , Assessment & Plan Assessment/Plan (1) Acute paronychia of right thumb: (2) Cellulitis of right upper extremity: PLAN: Plan Patient is a 57-year-old gentleman presenting with right thumb swelling 1. Right thumb paronychia and cellulitis involving the right forearm ? Patient had I&D performed in the emergency department cultures sent. Patient started on broad-spectrum antibiotic therapy with cefazolin and vancomycin admitted to regular nursing floor for further manage 2.? Mild MRDD ? Supportive care 3.? Seizure disorder ? Did continue patient on seizure medication 4.? Recurrent constipation ? Did continue patient bowel regimen 5.? DVT prophylaxis - On enoxaparin Time spent in the patient's overall evaluation,decision-making process, review of diagnostic data, adjustment of management, discussion with other providers, nursing nursing and ancillary staff involved in patient's care documentation, 55 Minutes Charges/Coding Visit Charges Inpatient E&M: 06619 Init Hosp L2
[2023-01-26 12:32] VITALS: BP 137/78; PULSE 62; RESP 18; TEMP 36.8; O2SAT 98
[2023-01-26 12:33] VITALS: BMI 25.9
--- NOTE | 2023-01-26 13:12 | PCM.RX.CS ---
Consult Pharmacy has been consulted to manage selected antiobiotic: Vancomycin Type of Consult: New start Suspected Infection: Skin/Soft tissue Prior Doses of Antibiotics Received/Current Regimen: 1250MG GIVEN 01/26/23 @1153 Labs: Sodium 141 mmol/L (136-145) 01/26/23 10:25 Potassium 3.7 mmol/L (3.5-5.1) 01/26/23 10:25 Chloride 104 mmol/L (98-107) 01/26/23 10:25 Carbon Dioxide 32.0 mmol/L (21.0-32.0) 01/26/23 10:25 Anion Gap 5 (5-15) 01/26/23 10:25 BUN 9 mg/dL (7-18) 01/26/23 10:25 Creatinine 0.67 mg/dL (0.70-1.30) L 01/26/23 10:25 Est GFR (MDRD) Af Amer 158 mL/min (>60) 01/26/23 10:25 Est GFR (MDRD) Non-Af 130 mL/min (>60) 01/26/23 10:25 BUN/Creatinine Ratio 13.5 RATIO (10-20) 01/26/23 10:25 Glucose 139 mg/dL (74-106) H 01/26/23 10:25 Weight used for dosin.3 kg Estimated Creatinine Clearance: 133 Goal Trough: 10-15 mcg/mL Pharmacy Plan for Drug Dosing: GIVE 1250MG OF VANCOMYCIN EVERY 12 HOURS STARTING AT 2330 ON 01/26/23 Pharmacy Service will continue to monitor and adjust dosing as required. Follow-Up Labs: Trough Vancomycin Labs to be done on [date and time ordered]: 01/27/23 @ 2300
[2023-01-26] MEDS: KCL 20MEQ in D5.45NS 20 MEQ/1,000 ML IV.SOLN. 150 MEQ IV ×2 (13:56→22:10)
[2023-01-26] MEDS: Cefazolin 1 GM/50 ML BAG IV ×2 (14:06→21:56)
[2023-01-26] MEDS: Lactulose 20 GM/30 ML UDC PO ×2 (14:06→21:56)
--- NOTE | 2023-01-26 14:16 | WOUNDNOTE ---
skin photo: right thumb/arm
--- NOTE | 2023-01-26 14:18 | WOUNDNOTE ---
Was consulted on patient for redness to the right thumb. removed the dressing. there was no drainage noted. there is some redness and maceration noted around the thumb nail. not able to express any drainage. there is a red streak noted up the forearm. gently cleansed thumb with soap and water. pat dry. placed a dry dressing and wrapped with rocco. pt tolerated well. see skin photo.
[2023-01-26] MEDS: levETIRAcetam 500 MG Tablet PO (21:54)
[2023-01-26] MEDS: Lacosamide 50 MG Tablet PO (21:55)
[2023-01-26] MEDS: cloZAPine 100 MG TABLET 200 MG PO (21:55)
[2023-01-26] MEDS: Docusate Sodium 100 MG Capsule 200 MG PO (21:56)
[2023-01-26] MEDS: Doxazosin 4 MG Tablet PO (21:56)
[2023-01-27 02:32] VITALS: BP 132/68; PULSE 65; RESP 16; TEMP 36.7; O2SAT 98
[2023-01-27] MEDS: Cefazolin 1 GM/50 ML BAG IV ×3 (05:02→21:08)
[2023-01-27] MEDS: Lactulose 20 GM/30 ML UDC PO ×3 (05:05→21:08)
[2023-01-27 06:31] LABS: Absolute Lymphocyte Count 0.98 X10^3/uL (0.83-4.51); Absolute Neutrophil Count 5.7 X10^3/uL (2.0-7.7); Basophil# 0.04 X10^3/uL; Basophil% 0.6 % (0-1); Eosinophil# 0.05 X10^3/uL; Eosinophils% 0.7 % (0-5); Hematocrit 42.6 % (40-54); Hemoglobin 14.1 g/dL (13.0-16.5); Lymphocyte # 0.98 X10^3/ul (0.83-4.51); Lymphocyte % 13.7 % (19-41); Mean Corp Hgb Conc 33.1 g/dL (32-36); Mean Corpuscular Hgb 29.6 pg (27.0-32.0); Mean Corpuscular Volume 89.3 fL (80-94); Mean Platelet Vol. 10.9 fl (6.2-12.0); Monocyte# 0.42 X10^3/uL; Monocyte% 5.9 % (0-10); NRBC Flagged by Analyzer 0 % (0-5); Neutrophil # 5.65 X10^3/uL (2.7-7.7); Platelet Count 178 K/mm3 (150-450); RBC Distribution Width CV 13.2 % (11.6-14.6); RBC Distribution Width SD 42.9 fl (35.1-43.9); Red Blood Count 4.77 M/mm3 (4.6-6.2); White Blood Count 7.2 K/mm3 (4.4-11.0)
[2023-01-27 07:10] LABS: Anion Gap 6 (5-15); BUN 12 mg/dL (7-18); BUN/Creat Ratio 18.2 RATIO (10-20); Calcium,Total 8.8 mg/dL (8.5-10.1); Chloride 103 mmol/L (98-107); Creatinine, Serum 0.66 mg/dL (0.70-1.30); EST Glomerular Filtration Rate 132 mL/min (>60); Est Glom Filt Rate - Afr Amer 159 mL/min (>60); Estimated Creatinine Clearance 139.56 ml/min; Glucose 112 mg/dL (74-106); Magnesium 1.6 mg/dL (1.6-2.6); Phosphorus 2.6 mg/dL (2.5-4.9); Potassium 4.4 mmol/L (3.5-5.1); Sodium Level 139 mmol/L (136-145)
--- NOTE | 2023-01-27 07:11 | PN.HOSP_ITS ---
Reason for Visit Reason for Visit: Diagnoses Cellulitis of right finger (01/26/23) Cellulitis of right upper limb (01/26/23) Subjective Subjective Patient is a 57-year-old gentleman presenting with right thumb swelling. An assessment of Right thumb paronychia and cellulitis involving the right forearm Patient had I&D performed in the emergency department cultures sent. Subsequently admitted to regular nursing floor for further management Objective Data Objective Data Vital Signs: Vital Signs Temp Pulse Resp BP Pulse Ox O2 Del Method 98.1 F 65 16 132/68 H 98 Room Air 01/27/23 02:32 01/27/23 02:32 01/27/23 02:32 01/27/23 02:32 01/27/23 02:32 01/27/23 02:32 Oxygen Delivery Method Room Air Weight: 89.3 kg Body Mass Index (BMI) 25.9 Intake & Output: Intake and Output for Last 24 Hours 01/25/23 01/26/23 01/27/23 23:59 23:59 23:59 Intake Total 1409 / 1889 2300 / 2300 Output Total 275 / 1075 1300 / 1300 Balance 1134 / 814 1000 / 1000 Lab / Micro Data Result Diagrams: 01/27/23 05:30 01/27/23 05:30 Labs: Laboratory Results - last 24 hr 01/26/23 10:25: WBC 6.9, RBC 5.11, Hgb 14.9, Hct 46.1, MCV 90.2, MCH 29.2, MCHC 32.3, RDW Std Deviation 43.2, RDW Coeff of Carlos 13.2, Plt Count 182, MPV 10.9, Immature Gran % (Auto) 0.400, Neut % (Auto) 72.4 H, Lymph % (Auto) 16.0 L, [place] % (Auto) 9.5, Eos % (Auto) 1.3, Baso % (Auto) 0.4, Absolute Neuts (auto) 5.0, Absolute Lymphs (auto) 1.10, Nucleated RBC % 0, ESR 18 01/26/23 10:25: Sodium 141, Potassium 3.7, Chloride 104, Carbon Dioxide 32.0, Anion Gap 5, BUN 9, Creatinine 0.67 L, Estim Creat Clear Calc 133.52, Est GFR (MDRD) Af Amer 158, Est GFR (MDRD) Non-Af 130, BUN/Creatinine Ratio 13.5, Glucose 139 H, Calcium 9.3, C-React Prot Ext Range 37.00 H 01/27/23 05:30: WBC 7.2, RBC 4.77, Hgb 14.1, Hct 42.6, MCV 89.3, MCH 29.6, MCHC 33.1, RDW Std Deviation 42.9, RDW Coeff of Carlos 13.2, Plt Count 178, MPV 10.9, Immature Gran % (Auto) 0.100, Neut % (Auto) 79.0 H, Lymph % (Auto) 13.7 L, [place] % (Auto) 5.9, Eos % (Auto) 0.7, Baso % (Auto) 0.6, Absolute Neuts (auto) 5.7, Absolute Lymphs (auto) 0.98, Nucleated RBC % 0 01/27/23 05:30: Sodium 139, Potassium 4.4, Chloride 103, Carbon Dioxide 30.0, Anion Gap 6, BUN 12, Creatinine 0.66 L, Estim Creat Clear Calc 139.56, Est GFR (MDRD) Af Amer 159, Est GFR (MDRD) Non-Af 132, BUN/Creatinine Ratio 18.2, Glucose 112 H, Calcium 8.8, Phosphorus 2.6, Magnesium 1.6 Micro: Microbiology 01/26/23 11:29 Wound - Finger Gram Stain - Final Radiography Diagnostic Testing: Radiology Impression Finger X-Ray 01/26/23 10:40 IMPRESSION: Soft tissue swelling. Electronically Signed: Nelson Dodd MD at 11:03 EDT , Physical Exam Narrative GENERAL: cooperative HEENT: Atraumatic; normocephalic EYES; Anicteric, Normal Conjunctiva NECK; supple, normal thyroid, RESPIRATORY: Diminished to auscultation CARDIOVASCULAR: Regular S1 S2, GI: soft, normoactive bowel sounds, : No Renal angle tenderness; EXTREMITIES: Right thumb swelling with erythema and warmth with streaking up his forearm MUSCULOSKELETAL: no muscle wasting NEURO: Awake; no lateralizing signs. SKIN: As discussed above PSYCH; Flat affect Assessment & Plan Assessment/Plan (1) Acute paronychia of right thumb: (2) Cellulitis of right upper extremity: PLAN: Plan Patient is a 57-year-old gentleman presenting with right thumb swelling 1. Right thumb paronychia and cellulitis involving the right forearm ? Patient had I&D performed in the emergency department cultures sent. Patient started on broad-spectrum antibiotic therapy with cefazolin and vancomycin admitted to regular nursing floor for further manage 2.? Mild MRDD ? Supportive care 3.? Seizure disorder ? Did continue patient on seizure medication 4.? Recurrent constipation ? Did continue patient bowel regimen 5.? DVT prophylaxis - On enoxaparin Time spent in the patient's overall evaluation,decision-making process, review of diagnostic data, adjustment of management, discussion with other providers, nursing nursing and ancillary staff involved in patient's care documentation, 35 Minutes Charges/Coding Visit Charges Inpatient E&M: 84756 Subs Hosp L2
[2023-01-27] MEDS: Docusate Sodium 100 MG Capsule 200 MG PO ×2 (08:31→21:08)
[2023-01-27] MEDS: Enoxaparin 40 MG/0.4 ML Syringe SC (08:31)
[2023-01-27] MEDS: Polyethylene Glycol 3350 17 GM PACKET PO (08:32)
[2023-01-27] MEDS: cloZAPine 100 MG TABLET PO (08:32)
[2023-01-27] MEDS: levETIRAcetam 500 MG Tablet PO ×2 (08:32→21:08)
[2023-01-27] MEDS: Lacosamide 50 MG Tablet PO ×2 (08:39→21:14)
[2023-01-27] MEDS: Fluticasone 0.05% 1 SPRAY NASAL.SRY NASAL (08:43)
[2023-01-27 08:45] VITALS: BP 140/85; PULSE 57; RESP 16; TEMP 36.6; O2SAT 92
[2023-01-27 11:29] VITALS: BP 130/77; PULSE 63; RESP 16; TEMP 36.6; O2SAT 96
[2023-01-27 14:53] VITALS: BP 143/80; PULSE 59; RESP 16; TEMP 36.4; O2SAT 97
[2023-01-27 20:34] VITALS: BP 142/80; PULSE 63; RESP 16; TEMP 36.9; O2SAT 95
[2023-01-27] MEDS: cloZAPine 100 MG TABLET 200 MG PO (21:07)
[2023-01-27] MEDS: Doxazosin 4 MG Tablet PO (21:14)
[2023-01-27] MEDS: Mag Hydrox/Al Hydrox/Simeth 30 ML UDC PO (21:17)
[2023-01-27 23:46] LABS: Vancomycin, Trough Level 14.5 ug/mL (5.0-15.0)
--- NOTE | 2023-01-28 00:32 | PCM.RX.CS ---
Consult Pharmacy has been consulted to manage selected antiobiotic: Vancomycin Type of Consult: Follow-up Labs: Sodium 139 mmol/L (136-145) 01/27/23 05:30 Potassium 4.4 mmol/L (3.5-5.1) 01/27/23 05:30 Chloride 103 mmol/L (98-107) 01/27/23 05:30 Carbon Dioxide 30.0 mmol/L (21.0-32.0) 01/27/23 05:30 Anion Gap 6 (5-15) 01/27/23 05:30 BUN 12 mg/dL (7-18) 01/27/23 05:30 Creatinine 0.66 mg/dL (0.70-1.30) L 01/27/23 05:30 Est GFR (MDRD) Af Amer 159 mL/min (>60) 01/27/23 05:30 Est GFR (MDRD) Non-Af 132 mL/min (>60) 01/27/23 05:30 BUN/Creatinine Ratio 18.2 RATIO (10-20) 01/27/23 05:30 Glucose 112 mg/dL (74-106) H 01/27/23 05:30 Vancomycin Trough 14.5 ug/mL (5.0-15.0) 01/27/23 23:04 Microbiology: Microbiology 01/26/23 11:29 Wound - Finger Gram Stain - Final 01/26/23 11:29 Wound - Finger Wound Culture - Preliminary Staphylococcus species Beta streptococcus Goal Trough: 10-15 mcg/mL Pharmacy Plan for Drug Dosing: Pharmacy Service will continue to monitor and adjust dosing as required. TROUGH 14.5 @ 11.5 HRS. NO CHANGES, FOLLOW UP TROUGH IN 2 DAYS Follow-Up Labs: Trough Vancomycin Labs to be done on [date and time ordered]: 01/29 @ 2300
[2023-01-28 02:00] VITALS: BP 147/66; PULSE 76; RESP 16; TEMP 37.6; O2SAT 94
[2023-01-28] MEDS: Cefazolin 1 GM/50 ML BAG IV ×3 (05:11→21:00)
[2023-01-28] MEDS: Lactulose 20 GM/30 ML UDC PO ×3 (05:11→20:51)
--- NOTE | 2023-01-28 07:21 | PCM.PN.HOSP ---
Reason for Visit Reason for Visit: Diagnoses Cellulitis of right finger (01/26/23) Cellulitis of right upper limb (01/26/23) Subjective Subjective Patient wound cultures so far positive for staphylococcus species and beta streptococcus. Final sensitivities pending. Objective Data Objective Data Vital Signs: Vital Signs Temp Pulse Resp BP Pulse Ox O2 Del Method 99.7 F H 76 16 147/66 H 94 Room Air 01/28/23 02:00 01/28/23 02:00 01/28/23 02:00 01/28/23 02:00 01/28/23 02:00 01/28/23 02:00 Oxygen Delivery Method Room Air Weight: 89.3 kg Body Mass Index (BMI) 25.9 Intake & Output: Intake and Output for Last 24 Hours 01/26/23 01/27/23 01/28/23 23:59 23:59 23:59 Intake Total 1409 / 1889 3730 / 3730 796 / 796 Output Total 275 / 1075 2400 / 2400 700 / 700 Balance 1134 / 814 1330 / 1330 96 / 96 Lab / Micro Data Result Diagrams: 01/27/23 05:30 01/27/23 05:30 Labs: Laboratory Results - last 24 hr 01/27/23 23:04: Vancomycin Trough 14.5 Micro: Microbiology 01/26/23 10:30 Blood Culture (Wb) - Left Hand Blood Culture - Preliminary No growth in 48 hours. 01/26/23 10:25 Blood Culture (Wb) - Anticubital Left Blood Culture - Preliminary No growth in 48 hours. 01/26/23 11:29 Wound - Finger Gram Stain - Final 01/26/23 11:29 Wound - Finger Wound Culture - Preliminary Staphylococcus species Beta streptococcus Physical Exam Narrative GENERAL: cooperative HEENT: Atraumatic; normocephalic EYES; Anicteric, Normal Conjunctiva NECK; supple, normal thyroid, RESPIRATORY: Diminished to auscultation CARDIOVASCULAR: Regular S1 S2, GI: soft, normoactive bowel sounds, : No Renal angle tenderness; EXTREMITIES: Right thumb swelling with erythema and warmth with streaking up his forearm MUSCULOSKELETAL: no muscle wasting NEURO: Awake; no lateralizing signs. SKIN: As discussed above PSYCH; Flat affect Assessment & Plan Assessment/Plan (1) Acute paronychia of right thumb: (2) Cellulitis of right upper extremity: PLAN: Plan Patient is a 57-year-old gentleman presenting with right thumb swelling 1. Right thumb paronychia and cellulitis involving the right forearm ? Patient had I&D performed in the emergency department cultures sent. Patient started on broad-spectrum antibiotic therapy with cefazolin and vancomycin admitted to regular nursing floor for further management ? 01/28/2023;Patient wound cultures so far positive for staphylococcus species and beta streptococcus. Final sensitivities pending. 2.? Mild MRDD ? Supportive care 3.? Seizure disorder ? Did continue patient on seizure medication 4.? Recurrent constipation ? Did continue patient bowel regimen 5.? DVT prophylaxis - On enoxaparin Time spent in the patient's overall evaluation,decision-making process, review of diagnostic data, adjustment of management, discussion with other providers, nursing nursing and ancillary staff involved in patient's care documentation, 35 Minutes Charges/Coding Visit Charges Inpatient E&M: 81505 Subs Hosp L2
[2023-01-28 08:30] VITALS: BP 141/77; PULSE 64; RESP 18; TEMP 36.6; O2SAT 96
[2023-01-28 08:45] VITALS: PULSE 64; RESP 18; O2SAT 96
[2023-01-28] MEDS: Fluticasone 0.05% 1 SPRAY NASAL.SRY NASAL (10:49)
[2023-01-28] MEDS: Docusate Sodium 100 MG Capsule 200 MG PO ×2 (10:49→20:51)
[2023-01-28] MEDS: cloZAPine 100 MG TABLET PO (10:49)
[2023-01-28] MEDS: Enoxaparin 40 MG/0.4 ML Syringe SC (10:50)
[2023-01-28] MEDS: levETIRAcetam 500 MG Tablet PO ×2 (10:50→20:51)
[2023-01-28] MEDS: Polyethylene Glycol 3350 17 GM PACKET PO (10:50)
[2023-01-28] MEDS: Lacosamide 50 MG Tablet PO ×2 (11:01→20:53)
[2023-01-28] MEDS: Glycerin/Hypromellose/PEG400 15 ml Bottle 1 DRP EACH EYE (11:58)
[2023-01-28 14:30] VITALS: BP 149/80; PULSE 65; RESP 18; TEMP 36.6; O2SAT 96
[2023-01-28 14:45] VITALS: PULSE 65; O2SAT 96
[2023-01-28 20:15] VITALS: BP 143/82; PULSE 60; RESP 16; TEMP 36.6; O2SAT 97
[2023-01-28] MEDS: cloZAPine 100 MG TABLET 200 MG PO (20:51)
[2023-01-28] MEDS: Doxazosin 4 MG Tablet PO (20:51)
[2023-01-29 02:15] VITALS: BP 138/65; PULSE 68; RESP 16; TEMP 36.8; O2SAT 96
[2023-01-29] MEDS: Lactulose 20 GM/30 ML UDC PO ×2 (05:24→14:00)
[2023-01-29] MEDS: Cefazolin 1 GM/50 ML BAG IV ×2 (06:26→14:00)
--- NOTE | 2023-01-29 08:32 | WOUNDNOTE ---
wound photo: right hand
--- NOTE | 2023-01-29 08:33 | WOUNDNOTE ---
In to reassess the right thumb. removed the dressing. no drainage noted. there is some mild redness to the base of the nail bed. no further red streak up the forearm. pt asking this nurse am I going home today? redness is greatly improved form Sunday. cleansed and pat dry. placed dry dressing and wrapped with rocco and MIRZA wrap. pt tolerated well. can most likely leave [facility]ZA once back to the intermediate.
[2023-01-29 08:40] VITALS: BP 130/88; PULSE 60; RESP 18; TEMP 36.9; O2SAT 96
[2023-01-29] MEDS: Enoxaparin 40 MG/0.4 ML Syringe SC (10:15)
[2023-01-29] MEDS: Fluticasone 0.05% 1 SPRAY NASAL.SRY NASAL (10:15)
[2023-01-29] MEDS: Docusate Sodium 100 MG Capsule 200 MG PO (10:15)
[2023-01-29] MEDS: levETIRAcetam 500 MG Tablet PO (10:15)
[2023-01-29] MEDS: cloZAPine 100 MG TABLET PO (10:16)
[2023-01-29] MEDS: Polyethylene Glycol 3350 17 GM PACKET PO (10:16)
[2023-01-29] MEDS: Lacosamide 50 MG Tablet PO (10:19)
--- NOTE | 2023-01-29 11:15 | CASEMGMT ---
Addendum entered by Magali Woods 01/29/23 14:49: SW called Pt PA and father, Jimi. SW updated that pt will be d/c today and that arrangements have been made with [facility] for pt to return to their facility. Jimi voiced understanding. Original Note: Social Work SW called pt PA, father Jimi. Jimi confirmed pt will be returning to [facility] when medically ready. SW updated MD Carter and D/C server assistant Nelly. Nelly to send updates to [facility]. PLAN: [facility] SHAYAN Mosqueda
--- NOTE | 2023-01-29 11:23 | CASEMGMT ---
Discharge Planning VM was left with RONNELL Ring/[facility]. Requested call back regarding discharge. Nelly Nichole
[2023-01-29 14:03] VITALS: BP 115/72; PULSE 68; RESP 18; TEMP 36.8; O2SAT 96
--- NOTE | 2023-01-29 14:14 | DS.PCM_ITS ---
Providers Date of Admission: 01/26/23 Date of Discharge: 01/29/23 Primary Care Physician: Dr. Abe Moralez MD Consultations 01/26/23 12:56 Consult: Onc/Wound/data coder operator Routine Comment: right thumb Reason For Visit: PARONYCHIA Diagnosis Discharge Diagnosis (1) Acute paronychia of right thumb: Status: Acute Code(s): L03.011 - Cellulitis of right finger (2) Cellulitis of right upper extremity: Status: Acute Code(s): L03.113 - Cellulitis of right upper limb Plan #Right thumb paronychia and cellulitis involving the right forearm 2/2 MRSA and strep a #Mild MRDD #Seizure disorder #Recurrent constipation Medications at Discharge Home Medications clozapine 100 mg tablet 100 mg PO DAILY anxiety 07/24/16 clozapine 100 mg tablet 200 mg PO QHS anxiety 07/24/16 fluticasone propionate 50 mcg/actuation nasal spray,suspension 1 spray DAILY allergies 07/24/16 peg 400-propylene glycol (PF) 0.4 %-0.3 % eye drops in a dropperette (Systane (PF)) 1 ea OP BID PRN eye irritation 07/24/16 polyethylene glycol 3350 17 gram oral powder packet 17 g PO DAILY constipation 07/24/16 docusate sodium 100 mg capsule 200 mg PO BID constipation 02/10/22 doxazosin 4 mg tablet 4 mg PO QHS htn 02/10/22 acetaminophen 325 mg tablet (Tylenol) 650 mg PO Q4H PRN PRN Fever, pain 1-07/03 #0 tabs 02/19/22 albuterol sulfate 90 mcg/actuation aerosol inhaler (Ventolin HFA) 2 puff inhalation Q4H PRN PRN Wheezing ##1 03/14/22 lacosamide 50 mg tablet (Vimpat) 50 mg PO BID . 04/03/22 lactulose 20 gram/30 mL oral solution 20 g PO TID . 04/03/22 albuterol sulfate 2.5 mg/3 mL (0.083 %) solution for nebulization 2.5 mg (3 mL) inhalation Q2H PRN PRN Shortness of Breath/Wheezing #0 mL 04/05/22 levetiracetam 500 mg tablet (Keppra) 500 mg PO BID 01/26/23 amoxicillin 875 mg-potassium clavulanate 125 mg tablet 1 tab PO BID 5 days #11 tabs 01/29/23 doxycycline hyclate 100 mg capsule 100 mg PO BID 5 days #11 caps 01/29/23 Hospital Course Procedures - (I&D of right thumb) Summary of Care Provided Minutes Spent on Discharge: 31 Hospital Course: MORE SALAZAR, is a 57 M with past medical history significant for seizure disorder, MRDD resident at a care home brought to the emergency department brought to the emergency department the care home noticed significant right thumb swelling.? Patient was assessed in the emergency department found to have paronychia incision and drainage performed.? Cultures sent and started on antibiotics in view of streaking up his right forearm.? Subsequently admitted to regular nursing floor for further management. He was placed on cefazolin and vancomycin while awaiting cultures and wound care consulted. He significantly improved and cultures grew MRSA and strep a and he was discharged home on doxycycline and Augmentin. Discharge instructions as followed: - You will need routine local wound care for your right thumb -You will take Augmentin and doxycycline twice daily for 5 more days with first dose tonight -Please call your primary care provider's office upon discharge to schedule a hospital follow up within 1 week. -For any concerning signs or symptoms please call 911 or proceed to the nearest emergency department Physical Exam Narrative General: Alert, no acute distress HEENT: Atraumatic, normocephalic Eyes: Anicteric, normal conjunctiva, extraocular movements grossly intact Neck: Supple Respiratory: Clear to auscultation bilaterally, normal respiratory effort Cardiovascular: Regular rate and rhythm GI: Soft, nontender, nondistended Extremities: No edema Musculoskeletal: Moving all extremities Neuro: No overt focal neurological deficits Skin: Right thumb appropriately bandaged Psych: Cooperative Weight / BMI Weight Weight: 89.3 kg Body Mass Index (BMI) 25.9 ABG / Lab / Microbiology Data Result Diagrams: 01/27/23 05:30 01/27/23 05:30 Microbiology: Microbiology 01/26/23 11:29 Wound - Finger Gram Stain - Final 01/26/23 11:29 Wound - Finger Wound Culture - Final Meth. resistant Staph. aureus Streptococcus group A 01/26/23 10:30 Blood Culture (Wb) - Left Hand Blood Culture - Preliminary No growth in 48 hours. 01/26/23 10:25 Blood Culture (Wb) - Anticubital Left Blood Culture - Preliminary No growth in 48 hours. D/C Instructions Discharge Diet: No restrictions Meaningful Use Info Meaningful Use Diagnoses (Choose all that apply): None applicable Discharge Plan Admission Admit Date/Time: 01/26/23 11:28 Primary Reason for Your Visit: Right thumb infection Attending Provider: Gladys Carter Primary Care Provider: Abe Moralez Consulting Providers: Declan Arzola Instructions Patient Instructions: Caring for Your Incision, Changing Dressing Dc Additional Instructions / Restrictions: DISCHARGE INSTRUCTIONS PLEASE READ *Please take this with you to your next doctors appointment* - You will need routine local wound care for your right thumb -You will take Augmentin and doxycycline twice daily for 5 more days with first dose tonight -Please call your primary care provider's office upon discharge to schedule a hospital follow up within 1 week. -For any concerning signs or symptoms please call 911 or proceed to the nearest emergency department Discharge Orders/Prescriptions Prescriptions: New doxycycline hyclate 100 mg capsule 100 mg PO BID 5 Days Qty: 11 0RF amoxicillin-pot clavulanate 875-125 mg tablet 1 tab PO BID 5 Days Qty: 11 0RF Continued polyethylene glycol 3350 17 GM powder in packet 17 g PO DAILY clozapine 100 MG tablet 100 mg PO DAILY clozapine 100 MG tablet 200 mg PO QHS fluticasone propionate 1 SPRAY spray,suspension 1 spray NASAL DAILY Systane (PF) 1 EACH dropperette 1 ea OP BID PRN (Reason: eye irritation) docusate sodium 100 mg capsule 200 mg PO BID Label Comments: TAKE (2) CAPSULES BYCMOUTH TWICE DAILY. doxazosin 4 mg tablet 4 mg PO QHS acetaminophen [Tylenol] 325 mg Tablet 650 mg PO Q4H PRN PRN (Reason: Fever, pain 1-10/10) Qty: 0 0RF albuterol sulfate [Ventolin HFA] 90 mcg/actuation HFA aerosol inhaler 2 puff inhalation Q4H PRN PRN (Reason: Wheezing) Qty: 1 0RF Rx Instructions: Dispense with Spacer lacosamide [Vimpat] 50 mg tablet 50 mg PO BID lactulose 20 gram/30 mL solution 20 g PO TID albuterol sulfate 2.5 mg /3 mL (0.083 %) Solution For Nebulization 2.5 mg inhalation Q2H PRN PRN (Reason: Shortness of Breath/Wheezing) Qty: 0 0RF levetiracetam [Keppra] 500 mg Tablet 500 mg PO BID Referrals / Follow Up: Abe Moralez MD [Primary Care Provider] - Within 1 Week Disposition Disposition (needs filled in before D/C Order can be placed): DC/Tx to Another Type of HCF Charges/Coding Visit Charges Inpatient E&M: 98199 Disch Hosp >30min
--- NOTE | 2023-01-29 14:47 | CASEMGMT ---
Discharge Planning Home/Discharge Instructions faxed to [place] @ [phone]. Call placed to Jill to get pickup time. Nelly Nichole
[2023-01-29 15:45] VITALS: BP 115/72; PULSE 68; RESP 18; TEMP 36.8; O2SAT 96
== END 2023-01-29 15:43 | disposition other institution (70) | DRG 603 ==
LOC: ED 11:38 → MS3 12:24
PROVIDERS: Admitting Provider Internal Medicine; Emergency Provider Emergency Medicine; PCP Family Medicine; Visit Provider Internal Medicine
DX: L03.011 Cellulitis of right finger (principal); L03.113 Cellulitis of right upper limb; F84.0 Autistic disorder; F70 Mild intellectual disabilities; G40.909 Epilepsy, unspecified, not intractable, without status epilepticus; S70.211A Abrasion, right hip, initial encounter; K59.00 Constipation, unspecified; B95.62 Methicillin resistant Staphylococcus aureus infection as the cause of diseases classified elsewhere; Z79.899 Other long term (current) drug therapy; X58.XXXA Exposure to other specified factors, initial encounter
CPT/HCPCS: 36415; 73140; 80048; 80202; 83735; 84100; 85025; 85652; 86140; 87040; 87070; 87077; 87186; 87205; 99284; J7040; J7050; A4216

== ENCOUNTER 2023-02-05 07:23 | Outpatient (RCR) | payer MEDICARE, MEDICAID, SELFPAY ==
[2023-02-05 07:34] LABS: Absolute Lymphocyte Count 1.67 X10^3/uL (0.83-4.51); Absolute Neutrophil Count 2.5 X10^3/uL (2.0-7.7); Basophil# 0.05 X10^3/uL; Eosinophil# 0.13 X10^3/uL; Eosinophils% 2.7 % (0-5); Hematocrit 42.1 % (40-54); Hemoglobin 13.8 g/dL (13.0-16.5); Lymphocyte # 1.67 X10^3/ul (0.83-4.51); Lymphocyte % 34.1 % (19-41); Mean Corp Hgb Conc 32.8 g/dL (32-36); Mean Corpuscular Hgb 29.6 pg (27.0-32.0); Mean Corpuscular Volume 90.3 fL (80-94); Mean Platelet Vol. 10.3 fl (6.2-12.0); Monocyte# 0.56 X10^3/uL; Monocyte% 11.4 % (0-10); NRBC Flagged by Analyzer 0 % (0-5); Neutrophil # 2.48 X10^3/uL (2.7-7.7); Neutrophil % 50.6 % (47-70); Platelet Count 217 K/mm3 (150-450); RBC Distribution Width CV 13.2 % (11.6-14.6); RBC Distribution Width SD 43.6 fl (35.1-43.9); Red Blood Count 4.66 M/mm3 (4.6-6.2); White Blood Count 4.9 K/mm3 (4.4-11.0)
== END 2023-02-21 23:59 ==
LOC: LABSPEC 07:23
PROVIDERS: PCP Family Medicine; Referring Provider Internal Medicine; Visit Provider Internal Medicine
DX: F29 Unspecified psychosis not due to a substance or known physiological condition (principal); F84.0 Autistic disorder
CPT/HCPCS: 85025

== ENCOUNTER → 2023-03-07 | Outpatient (CLI) | payer MEDICARE, MEDICAID, SELFPAY ==
[2023-03-07 07:02] LABS: Absolute Lymphocyte Count 1.51 X10^3/uL (0.83-4.51); Absolute Neutrophil Count 1.8 X10^3/uL (2.0-7.7); Basophil# 0.04 X10^3/uL; Eosinophil# 0.15 X10^3/uL; Eosinophils% 3.8 % (0-5); Hematocrit 43.4 % (40-54); Hemoglobin 14.2 g/dL (13.0-16.5); Lymphocyte # 1.51 X10^3/ul (0.83-4.51); Lymphocyte % 38.5 % (19-41); Mean Corp Hgb Conc 32.7 g/dL (32-36); Mean Corpuscular Hgb 29.8 pg (27.0-32.0); Mean Platelet Vol. 11.4 fl (6.2-12.0); Monocyte# 0.41 X10^3/uL; Monocyte% 10.5 % (0-10); NRBC Flagged by Analyzer 0 % (0-5); Neutrophil # 1.79 X10^3/uL (2.7-7.7); Neutrophil % 45.7 % (47-70); Platelet Count 153 K/mm3 (150-450); RBC Distribution Width CV 13.2 % (11.6-14.6); RBC Distribution Width SD 43.6 fl (35.1-43.9); Red Blood Count 4.77 M/mm3 (4.6-6.2); White Blood Count 3.9 K/mm3 (4.4-11.0)
== END | disposition home or self-care (01) ==
PROVIDERS: PCP Family Medicine; Referring Provider Internal Medicine; Visit Provider Internal Medicine
DX: F29 Unspecified psychosis not due to a substance or known physiological condition (principal)
CPT/HCPCS: 85025

== ENCOUNTER 2023-03-15 10:00 | Outpatient (RCR) | payer MEDICARE, MEDICAID, SELFPAY ==
[2023-03-08 09:49] VITALS: BP 121/67; PULSE 66; RESP 16; TEMP 35.8; BMI 34.2
--- NOTE | 2023-03-08 10:29 | HP.PCM_ITS ---
History of Present Illness Date of Service: 03/08/23 Chief Complaint: Right Hip Ulcer History of Wound: Mr. Crawford is a 57 yo with history of intellectual disability brought in by his caregiver. Presents with a 1 month history of right hip area ulcer. Started when he was hospitalized for another unrelated condition. Measures so far have not helped. No known history of diabetes. No tobacco abuse. His appetite is good. No chills, fever or otherwise feeling of unwell. [facility] Medical History (Updated 03/08/23 @ 10:[address] Namita Rader MD) Abrasion of hip, right Autism Cellulitis of right upper extremity Cognitive impairment Constipation Non-smoker Seizure disorder Seizures Skin ulcer of right hip with fat layer exposed Home Medications clozapine 100 mg tablet 100 mg PO DAILY anxiety 07/24/16 [History Last Taken 04/03/22] clozapine 100 mg tablet 200 mg PO QHS anxiety 07/24/16 [History Last Taken 04/02/22] fluticasone propionate 50 mcg/actuation nasal spray,suspension 1 spray DAILY all ergies 07/24/16 [History Last Taken 04/03/22] peg 400-propylene glycol (PF) 0.4 %-0.3 % eye drops in a dropperette (Systane (PF)) 1 ea OP BID PRN eye irritation 07/24/16 [History Last Taken 03/30/22] polyethylene glycol 3350 17 gram oral powder packet 17 g PO DAILY constipation 07/24/16 [History Last Taken 04/03/22] docusate sodium 100 mg capsule 200 mg PO BID constipation 02/10/22 [History Last Taken 04/03/22] doxazosin 4 mg tablet 4 mg PO QHS htn 02/10/22 [History Last Taken 04/02/22] acetaminophen 325 mg tablet (Tylenol) 650 mg PO Q4H PRN PRN Fever, pain 1-07/03 #0 tabs 02/19/22 [Rx Last Taken Unknown] albuterol sulfate 90 mcg/actuation aerosol inhaler (Ventolin HFA) 2 puff inhalation Q4H PRN PRN Wheezing ##1 03/14/22 [Rx Last Taken 04/02/22] lacosamide 50 mg tablet (Vimpat) 50 mg PO BID . 04/03/22 [History Last Taken 04/03/22] lactulose 20 gram/30 mL oral solution 20 g PO TID . 04/03/22 [History Last Taken 04/03/22] albuterol sulfate 2.5 mg/3 mL (0.083 %) solution for nebulization 2.5 mg (3 mL) inhalation Q2H PRN PRN Shortness of Breath/Wheezing #0 mL 04/05/22 [Rx Last Taken Unknown] levetiracetam 500 mg tablet (Keppra) 500 mg PO BID 01/26/23 [History Last Taken Unknown] amoxicillin 875 mg-potassium clavulanate 125 mg tablet 1 tab PO BID 5 days #11 tabs 01/29/23 [Rx Last Taken Unknown] doxycycline hyclate 100 mg capsule 100 mg PO BID 5 days #11 caps 01/29/23 [Rx Last Taken Unknown] Allergy/AdvReac Type Severity Reaction Status Date / Time No Known Allergies Allergy Verified 01/26/23 09:34 Family History Mother Seizures COPD (chronic obstructive pulmonary disease) Father Glaucoma Surgical History History of lingual frenulectomy History of rectal surgery Social History housing: other details: snf. Smoking Status: Never smoker alcohol intake: never substance use type: does not use ROS Constitutional Constitutional: Denies body ache(s), change in weight, chills, headache(s), lethargy or malaise Eyes Eyes: Denies blind spots, bloody eye, blurry vision, change in eye color, decreased night vision or diplopia ENT HEENT: Denies disequillibrium, dizziness, dry mouth, ear pain, epistaxis, facial pain or foreign body in nose Cardiovascular Cardiovascular: Denies abdominal bloating, abdominal pain, cold extremities, cyanosis, diaphoresis, dizziness or dyspnea Respiratory/Chest Respiratory/Chest: Denies dry cough, excessive phlegm production, hemoptysis, hoarseness or inability to speak Gastrointestinal Gastrointestinal: Denies anorexia, belching, bloating, chewing difficulty, dry heaves or excessive flatus Genitourinary Genitourinary: Denies abdominal discomfort, flank pain, itching or low back pain Musculoskeletal Musculoskeletal: Reports difficulty walking; Denies joint swelling, muscle cramps, tingling or tremors Integumentary Integumentary: Denies bleeding lesions, changing lesions, furuncle, hirsutism or jaundice Neurologic Neurologic: Denies behavior changes, burning sensations, confusion, focal weakness, headache(s) or seizure-like activity Psychiatric Psychiatric: Denies auditory hallucinations, behavioral changes, hallucinations, hopelessness or irritability Endocrine Endocrinology: Denies change in body appearance, deepening of the voice, excessive sweating, heat intolerance or increase in ring/shoe/hat size Allergic/Immunologic Allergic/Immunologic: Denies GI upset w/certain foods, itchy eyes, lip swelling, seasonal rhinorrhea, throat swelling or tongue swelling Vital Signs Vital Signs Vital Signs: 03/08/23 09:49 Temperature 96.4 F L Temperature Source Temporal Pulse Rate 66 Respiratory Rate 16 Blood Pressure 121/67 H Blood Pressure Mean 85 Blood Pressure Source Monitor Blood Pressure Position Supine Blood Pressure Location Right Arm Weight Weight: 260 lb Body Mass Index (BMI) 34.2 Debridement Note Debridement Note Wound debrided: Right Hip Type of Debridement: Excisional debridement Anesthesia Used: 5% Lidocaine Gel Depth: Down to and including healthy tissue and in the subcutaneous layer Percentage of wound debrided: 100 Instrument Used: 3mm curette Tissue Removed: Slough and devitalized tissue Severity: Fat Layer Exposed Amount of bleeding with debridement: Mild Bleeding Controlled with: Pressure Patient tolerated procedure: Patient tolerated procedure well Post-Debridement Measurements and Additional Note: Post-Debridement Measurements/Treatment - Nurse 1 - General Ulcer Assessment Start: 03/08/23 09:46 Freq: Status: Active Protocol: KAN Activity Type Activity Date Activity User E-sign Co-sign Detail Recorded Client Recorded Date Recorded By Document 03/08/23 09:49 APOLLO [id number] 03/08/23 09:54 APOLLO 03/08/23 09:49 - Today's Visit Information Type of service Initial Visit Arrival Mode Wheelchair Transfer Assistance Manual Accompanied by caregiver Patient Identification Verified (Name & Yes ) Patient Requires Transmission-Based Yes Precautions Safety Precautions NA Height and Weight Height 6 ft 1 in Weight 260 lb Weight in Pounds 260.0 lbs Body Mass Index (BMI) 34.2 BMI Classification Obese BSA - [place] 2.41 Vital Signs Temperature (97.8 F-99.1 F) 96.4 F L Temperature Source Temporal Pulse Rate (60-100) 66 Pulse Location Monitor Respiratory Rate (12-18) 16 Respiratory rate source Observation Blood Pressure (90/60-120/80) 121/67 H Blood Pressure Mean 85 Source Monitor Position Supine Blood Pressure Location Right Arm History Since Last Visit- (Skip if this is Patient's initial visit) Left Footwear Regular Shoe Right Footwear Regular Shoe Pain Scale: 0-10 Numeric Is Patient Pain Free? Yes Communication Assessment Preferred language French Chief Warden Required No Able to Read No Able to Write No Right Hearing Abillity Normal Left Hearing Abillity Normal Visual Assistive Devices None Functional Assessment Recent Decline in Ability to Perform Ambulation, Bathing,Lower Body Dressing, Toileting, Transferring Culture/Episcopalian/Recreational Facilities Motel Manager Cultural/Episcopalian Needs that may affect No Treatment Plan Would you allow our hospital hand bander to No meet you for the purpose of spiritual/ emotional support? Recreational Facilities Motel Manager to contact place of restorationist No Teaching: Wound Center [facility] Orientation/ Contacting Physician -Person Taught Patient -Teaching Method Discussion, Demonstration -Response to teaching Unable to comprehend [facility] Nurse 1 - General Ulcer Measurement Start: 03/08/23 09:46 Freq: Status: Active Protocol: Activity Type Activity Date Activity User E-sign Co-sign Detail Recorded Client Recorded Date Recorded By Document 03/08/23 09:49 [id number] 03/08/23 09:54 APOLLO 03/08/23 09:49 Wound Center Nurse 1 1-right Hip -Combined with other wound No -Current Size (cm) - Length 1.0 -Current Size (cm) - Width 1.0 -Current Size (cm) - Depth 0.1 -Total Square Cm 1.00 -Photo Taken Yes -Epithelialization Small 1-33% -Tunneling No -Undermining/Tunneling No -Circular Undermining No -Classification - Pressure Ulcer Unstageable -Exudate Amt Small -Exudate Type Serosanguineous -Wound Margin Flat & Intact -Granulation Amt None Present (0 %) -Slough/Fibrin Yes -Necrosis Amt Large (67-100%) -Necrotic Tissue Type Adherent Slough -Structure Exposed N/A -Texture (Alisia-wound Skin Appearance) Assessed -Moisture (Alisia-wound Skin Appearance) Assessed,Dry/ Scaly -Color (Alisia-wound Skin Appearance) Assessed -Temperature (Alisia-wound Skin No Abnormality Appearance) (Pt Warm) -Tenderness on Palpation (Alisia-wound No Skin Appearance) -Ulcer Cleansing Rinsed/ Irrigated with Saline -Foul Odor after Cleansing No -Anesthetic Used 5% Lidocaine Gel Lower Limb Edema Present NA - Nurse 2 - General Ulcer CM Notes Start: 03/08/23 09:46 Freq: Status: Active Protocol: Activity Type Activity Date Activity User E-sign Co-sign Detail Recorded Client Recorded Date Recorded By Document 03/08/23 10:08 MW Desktop 03/08/23 10:11 MW 03/08/23 10:08 Wound Center Nurse 2 1-right Hip -Time 10:09 -Correct Patient Yes -Correct Side, Site, Position Yes -Correct Procedure Yes -Procedure Performed Yes -Type of Procedure Debridement -Clinical Debridement Subcutaneous -Tissue Removed Subcutaneous -Post Debridement (cm) - Length 1.0 -Post Debridement (cm) - Width 1.0 -Post Debridement (cm) - Depth 0.1 -Total Square (Post) (cm) 1.00 -Area of Debridement (cm) - Length 1.0 -Area of Debridement (cm) - Width 1.0 -Total Square (Area) (cm) 1.00 -Tunneling No -Undermining/Tunneling No -Circular Undermining No -Wound/Ulcer Outcome Not Healed -Ulcer Cleansing Rinsed/ Irrigated with Saline -Foul Odor after Cleansing No -Bioengineered Tissue No -Bleeding Controlled with Pressure -Treatment Response Procedure Tolerated Well -Offloading No -Debridement - Subq, 1st 20sq cm Yes Pain Scale: 0-10 Numeric Is Patient Pain Free? Yes - Nurse 3 - General Ulcer D/C NN Start: 03/08/23 09:46 Freq: Status: Active Protocol: Activity Type Activity Date Activity User E-sign Co-sign Detail Recorded Client Recorded Date Recorded By Document 03/08/23 10:11 MW Desktop 03/08/23 10:15 MW 03/08/23 10:11 Wound Care Center Nurse 3 1-right Hip -Ulcer Cleansing Rinsed/ Irrigated with Saline -Foul Odor after Cleansing No -Negative Pressure Wound Therapy N/A -Primary Dressing Applied Mepilex Border, Promogran -Mepilex Border 1 -Promogran 1 Pain Scale: 0-10 Numeric Is Patient Pain Free? Yes Teaching: Wound Center Dressing Your Wound -Person Taught Patient,Primary Caregiver -Teaching Method Discussion, Demonstration -Response to teaching Verbalize understanding WC - Visit Discharge Discharge Condition Stable Ambulatory Status Wheelchair Transportation Private Auto Accompanied by [place] caregiver Medication Reconcilliation completed & No provided to patient/care provider Clinical Summary of Care Provided Yes Charges/Coding Visit Charges Office Visits / Consults: 77420 OV L3 Est Procedures Integumentary 111xxx-113xx: 98704 Berkley subq tissue 20 sq cm/< Assessment/Plan Assessment/Plan (1) Skin ulcer of right hip with fat layer exposed: CODE(S): L97.112 - 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 No clinical signs for infection so cultures not taken. Moistened Promogran daily, cover with gauze and foam dressing. Avoid pressure to the right hip, reposition often. Adequate protein intake. His questions were answered and he was advised to let us know if he has any further questions or concerns. Follow-up in a week or sooner if needed. This note was generated with [employer] dictation software. It may contain incorrect words, spelling, and punctuation that were not noted in checking the note before signing.
[2023-03-15 10:12] VITALS: BP 131/74; PULSE 64; RESP 18; TEMP 36.2; BMI 34.2
--- NOTE | 2023-03-15 11:45 | PN.PCM_ITS ---
History of Present Illness Date of Service: 03/15/23 Chief Complaint: Right Hip Ulcer History of Wound: Mr. Crawford is a 57 yo with history of intellectual disability brought in by his caregiver. Presents with a 1 month history of right hip area ulcer. Started when he was hospitalized for another unrelated condition. Measures so far have not helped. No known history of diabetes. No tobacco abuse. His appetite is good. No chills, fever or otherwise feeling of unwell. Progress of Wound: No new concerns at this time. No significant change. Wound bed appears a little dry. Objective Data Objective Data Vital Signs: Vital Signs Temp Pulse Resp BP 97.1 F L 64 18 131/74 H 03/15/23 10:12 03/15/23 10:12 03/15/23 10:12 03/15/23 10:12 Weight: 260 lb Body Mass Index (BMI) 34.2 Charges/Coding Procedures Integumentary 111xxx-113xx: 63335 Berkley subq tissue 20 sq cm/< Physical Exam Const alert, no apparent distress and average body habitus General Appearance: cooperative, comfortable and well kempt HEENT normocephalic and head/scalp atraumatic Neck full ROM General: normal visual inspection Resp normal respiratory effort Extremity no pedal edema Skin Wounds: wounds noted Neuro CN's II-XII intact bilaterally, moves all extremities and no focal motor deficits Psych cooperative Debridement Note Debridement Note Post-Debridement Measurements and Additional Note: Post-Debridement Measurements/Treatment - Nurse 1 - General Ulcer Assessment Start: 03/08/23 09:46 Freq: Status: Active Protocol: KAN Activity Type Activity Date Activity User E-sign Co-sign Detail Recorded Client Recorded Date Recorded By Document 03/08/23 09:49 [id number] 03/08/23 09:54 Document 03/15/23 10:12 DL [id number] 03/15/23 10:13 DL 03/08/23 03/15/23 09:49 10:12 - Today's Visit Information Type of service Initial Visit Follow-up Visit (Physician/[employer] ) Arrival Mode Wheelchair Wheelchair Transfer Assistance Manual Manual Transfer Assist (Other) x2 Accompanied by caregiver Patient Identification Verified (Name & Yes Yes ) Patient Requires Transmission-Based Yes No Precautions Safety Precautions NA Height and Weight Height 6 ft 1 in Weight 260 lb Weight in Pounds 260.0 lbs Body Mass Index (BMI) 34.2 34.2 BMI Classification Obese Obese BSA - [place] 2.41 Vital Signs Temperature (97.8 F-99.1 F) 96.4 F L 97.1 F L Temperature Source Temporal Temporal Pulse Rate (60-100) 66 64 Pulse Location Monitor Monitor Respiratory Rate (12-18) 16 18 Respiratory rate source Observation Observation Blood Pressure (90/60-120/80) 121/67 H 131/74 H Blood Pressure Mean (mm Hg) 85 93 Source Monitor Monitor Position Supine Blood Pressure Location Right Arm History Since Last Visit- (Skip if this is Patient's initial visit) Have you changed medications since your No last visit? Any new allergies or adverse reactions No Had a fall/change in ADL's that may No increase risk of falls Signs or symptoms of abuse and/or No neglect since last visit Have you been in the hospital since your No last visit? Has dressing in place as prescribed Yes Has compression in place as prescribed N/A Has offloadiing in place as prescribed Yes Experienced any changes in pain level or No management Left Footwear Regular Shoe Right Footwear Regular Shoe Pain Scale: 0-10 Numeric Is Patient Pain Free? Yes No Communication Assessment Preferred language [employer] Required No Able to Read No Able to Write No Right Hearing Abillity Normal Left Hearing Abillity Normal Visual Assistive Devices None Functional Assessment Recent Decline in Ability to Perform Ambulation, Bathing,Lower Body Dressing, Toileting, Transferring Culture/Sikhism/Floor Associate Cultural/Sikhism Needs that may affect No Treatment Plan Would you allow our hospital gourmet coffee attendant to No meet you for the purpose of spiritual/ emotional support? Floor Associate to contact place of jew No Teaching: Wound Center [facility] Orientation/ Contacting Physician -Person Taught Patient -Teaching Method Discussion, Demonstration -Response to teaching Unable to comprehend - Nurse 1 - General Ulcer Measurement Start: 03/08/23 09:46 Freq: Status: Active Protocol: Activity Type Activity Date Activity User E-sign Co-sign Detail Recorded Client Recorded Date Recorded By Document 03/08/23 09:49 [id number] 03/08/23 09:54 JF Document 03/15/23 10:12 DL [id number] 03/15/23 10:13 DL 03/08/23 03/15/23 09:49 10:12 Wound Center Nurse 1 1-right Hip -Combined with other wound No -Current Size (cm) - Length 1.0 0.9 -Current Size (cm) - Width 1.0 0.8 -Current Size (cm) - Depth 0.1 0.1 -Total Square Cm 1.00 0.72 -Photo Taken Yes No -Epithelialization Small 1-33% -Tunneling No -Undermining/Tunneling No -Circular Undermining No -Classification - Pressure Ulcer Unstageable -Exudate Amt Small Small -Exudate Type Serosanguineous Serosanguineous -Wound Margin Flat & Intact Distinct, Outline Attached -Granulation Amt None Present (0 None Present (0 %) %) -Slough/Fibrin Yes -Necrosis Amt Large (67-100%) Large (67-100%) -Necrotic Tissue Type Adherent Slough Adherent Slough -Structure Exposed N/A N/A -Texture (Alisia-wound Skin Appearance) Assessed Scarring -Moisture (Alisia-wound Skin Appearance) Assessed,Dry/ No Abnormality Scaly -Color (Alisia-wound Skin Appearance) Assessed Erythema -Temperature (Alisia-wound Skin No Abnormality No Abnormality Appearance) (Pt Warm) (Pt Warm) -Tenderness on Palpation (Alisia-wound No No Skin Appearance) -Ulcer Cleansing Rinsed/ Rinsed/ Irrigated with Irrigated with Saline Saline -Foul Odor after Cleansing No No -Anesthetic Used 5% Lidocaine 5% Lidocaine Gel Gel Lower Limb Edema Present NA WC - Nurse 2 - General Ulcer CM Notes Start: 03/08/23 09:46 Freq: Status: Active Protocol: Activity Type Activity Date Activity User E-sign Co-sign Detail Recorded Client Recorded Date Recorded By Document 03/08/23 10:08 MW Desktop 03/08/23 10:11 MW Document 03/15/23 10:24 MW [id number] 03/15/23 10:36 MW 03/08/23 03/15/23 10:08 10:24 Wound Center Nurse 2 1-right Hip -Time 10:09 10:32 -Correct Patient Yes Yes -Correct Side, Site, Position Yes Yes -Correct Procedure Yes Yes -Procedure Performed Yes Yes -Type of Procedure Debridement Debridement -Clinical Debridement Subcutaneous Subcutaneous -Tissue Removed Subcutaneous Subcutaneous -Post Debridement (cm) - Length 1.0 0.9 -Post Debridement (cm) - Width 1.0 0.8 -Post Debridement (cm) - Depth 0.1 0.1 -Total Square (Post) (cm) 1.00 0.72 -Area of Debridement (cm) - Length 1.0 0.9 -Area of Debridement (cm) - Width 1.0 0.8 -Total Square (Area) (cm) 1.00 0.72 -Tunneling No No -Undermining/Tunneling No No -Circular Undermining No No -Wound/Ulcer Outcome Not Healed Not Healed -Ulcer Cleansing Rinsed/ Rinsed/ Irrigated with Irrigated with Saline Saline -Foul Odor after Cleansing No No -Bioengineered Tissue No No -Bleeding Controlled with Pressure Pressure -Treatment Response Procedure Procedure Tolerated Well Tolerated Well -Offloading No No -Debridement - Subq, 1st 20sq cm Yes Yes Pain Scale: 0-10 Numeric Is Patient Pain Free? Yes Yes WC - Nurse 3 - General Ulcer D/C NN Start: 03/08/23 09:46 Freq: Status: Active Protocol: Activity Type Activity Date Activity User E-sign Co-sign Detail Recorded Client Recorded Date Recorded By Document 03/08/23 10:11 MW Desktop 03/08/23 10:15 MW Document 03/15/23 10:36 MW [id number] 03/15/23 10:36 MW 03/08/23 03/15/23 10:11 10:36 Wound Care Center Nurse 3 1-right Hip -Ulcer Cleansing Rinsed/ Rinsed/ Irrigated with Irrigated with Saline Saline -Foul Odor after Cleansing No No -Negative Pressure Wound Therapy N/A N/A -Primary Dressing Applied Mepilex Border, Mepilex Border, Promogran NonAdherent Contact Layer, Promogran -Mepilex Border 1 1 -Promogran 1 1 Treatment Response Procedure Tolerated Well Pain Scale: 0-10 Numeric Is Patient Pain Free? Yes Yes Teaching: Wound Center Dressing Your Wound -Person Taught Patient,Primary Patient,Primary Caregiver Caregiver -Teaching Method Discussion, Discussion Demonstration -Response to teaching Verbalize Verbalize understanding understanding WC - Visit Discharge Discharge Condition Stable Stable Ambulatory Status Wheelchair Wheelchair Transportation Private Auto Private Auto Accompanied by paris caregiver caregiver Medication Reconcilliation completed & No No provided to patient/care provider Clinical Summary of Care Provided Yes Yes Assessment/Plan Assessment/Plan (1) Skin ulcer of right hip with fat layer exposed: CODE(S): L97.112 - 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 Continue Promogran daily however now cover with Adaptic and foam dressing. Avoid pressure to the right hip, reposition often. Adequate protein intake. Their questions were answered and they were advised to let us know if they have any further questions or concerns. Follow-up in 2 weeks or sooner if needed. This note was generated with [employer] dictation software. It may contain incorrect words, spelling, and punctuation that were not noted in checking the note before signing.
== END 2023-03-23 23:59 | disposition home or self-care (01) ==
LOC: WC 10:00
PROVIDERS: PCP Family Medicine; Referring Provider Nurse Practitioner Family; Visit Provider Internal Medicine
DX: L97.112 Non-pressure chronic ulcer of right thigh with fat layer exposed (principal); G40.909 Epilepsy, unspecified, not intractable, without status epilepticus; F84.0 Autistic disorder; F79 Unspecified intellectual disabilities; R41.89 Other symptoms and signs involving cognitive functions and awareness; Z79.899 Other long term (current) drug therapy
CPT/HCPCS: 11042; 99203; G0463

== ENCOUNTER 2023-04-04 07:34 | Outpatient (RCR) | payer MEDICARE, MEDICAID, SELFPAY ==
[2023-04-04 07:58] LABS: Absolute Lymphocyte Count 1.38 X10^3/uL (0.83-4.51); Basophil# 0.04 X10^3/uL; Eosinophil# 0.14 X10^3/uL; Eosinophils% 3.5 % (0-5); Hematocrit 43.1 % (40-54); Hemoglobin 14.4 g/dL (13.0-16.5); Lymphocyte # 1.38 X10^3/ul (0.83-4.51); Lymphocyte % 34.2 % (19-41); Mean Corp Hgb Conc 33.4 g/dL (32-36); Mean Corpuscular Hgb 29.9 pg (27.0-32.0); Mean Corpuscular Volume 89.6 fL (80-94); Mean Platelet Vol. 11.1 fl (6.2-12.0); Monocyte# 0.45 X10^3/uL; Monocyte% 11.1 % (0-10); NRBC Flagged by Analyzer 0 % (0-5); Neutrophil # 2.01 X10^3/uL (2.7-7.7); Neutrophil % 49.7 % (47-70); Platelet Count 168 K/mm3 (150-450); RBC Distribution Width CV 12.9 % (11.6-14.6); RBC Distribution Width SD 42.2 fl (35.1-43.9); Red Blood Count 4.81 M/mm3 (4.6-6.2)
== END 2023-04-23 23:59 ==
LOC: LABSPEC 07:34
PROVIDERS: PCP Family Medicine; Referring Provider Internal Medicine; Visit Provider Internal Medicine
DX: F29 Unspecified psychosis not due to a substance or known physiological condition (principal); F84.0 Autistic disorder
CPT/HCPCS: 85025

== ENCOUNTER 2023-04-05 10:30 | Outpatient (RCR) | payer MEDICARE, MEDICAID, SELFPAY ==
[2023-03-24 01:42] VITALS: BP 131/74; PULSE 64; RESP 18; TEMP 36.2; BMI 34.2
[2023-03-29 10:35] VITALS: BP 103/76; PULSE 69; RESP 16; TEMP 36.1; BMI 34.2
--- NOTE | 2023-03-29 12:46 | PN.PCM_ITS ---
History of Present Illness Date of Service: 03/29/23 Chief Complaint: Right Hip Ulcer History of Wound: Mr. Crawford is a 57 yo with history of intellectual disability brought in by his caregiver. Presents with a 1 month history of right hip area ulcer. Started when he was hospitalized for another unrelated condition. Measures so far have not helped. No known history of diabetes. No tobacco abuse. His appetite is good. No chills, fever or otherwise feeling of unwell. Progress of Wound: Some improvement. No new concerns at this time. Objective Data Objective Data Vital Signs: Vital Signs Temp Pulse Resp BP 97.0 F L 69 16 103/76 03/29/23 10:35 03/29/23 10:35 03/29/23 10:35 03/29/23 10:35 Weight: 260 lb Body Mass Index (BMI) 34.2 Charges/Coding Procedures Integumentary 111xxx-113xx: 45968 Berkley subq tissue 20 sq cm/< Physical Exam Const alert, no apparent distress and average body habitus General Appearance: cooperative, comfortable and well kempt HEENT normocephalic and head/scalp atraumatic Neck full ROM General: normal visual inspection Resp normal respiratory effort Extremity no pedal edema Skin Wounds: wounds noted Neuro CN's II-XII intact bilaterally, moves all extremities and no focal motor deficits Psych cooperative Debridement Note Debridement Note Wound debrided: Right Hip Type of Debridement: Excisional debridement Anesthesia Used: 5% Lidocaine Gel Depth: Down to and including healthy tissue and in the subcutaneous layer Percentage of wound debrided: 100 Instrument Used: 3mm curette Tissue Removed: Slough and devitalized tissue Severity: Fat Layer Exposed Amount of bleeding with debridement: Mild Bleeding Controlled with: Pressure Patient tolerated procedure: Patient tolerated procedure well Post-Debridement Measurements and Additional Note: Post-Debridement Measurements/Treatment FERNIE - Nurse 1 - General Ulcer Assessment Start: 03/29/23 10:34 Freq: Status: Active Protocol: KAN Activity Type Activity Date Activity User E-sign Co-sign Detail Recorded Client Recorded Date Recorded By Document 03/29/23 10:35 APOLLO [id number] 03/29/23 10:40 APOLLO 03/29/23 10:35 FERNIE - Today's Visit Information Type of service Follow-up Visit (Physician/OPERATIONS VICE PRESIDENT ) Arrival Mode Ambulatory, Wheelchair Transfer Assistance Manual Patient Identification Verified (Name & No ) Patient Requires Transmission-Based No Precautions Height and Weight Body Mass Index (BMI) 34.2 BMI Classification Obese Vital Signs Temperature (97.8 F-99.1 F) 97.0 F L Temperature Source Temporal Pulse Rate (60-100) 69 Pulse Location Monitor Respiratory Rate (12-18) 16 Respiratory rate source Observation Blood Pressure (90/60-120/80) 103/76 Blood Pressure Mean (mm Hg) 85 Source Monitor Position Sitting Blood Pressure Location Left Arm History Since Last Visit- (Skip if this is Patient's initial visit) Have you changed medications since your No last visit? Any new allergies or adverse reactions No Had a fall/change in ADL's that may No increase risk of falls Signs or symptoms of abuse and/or No neglect since last visit Have you been in the hospital since your No last visit? Has dressing in place as prescribed No Has compression in place as prescribed N/A Has offloadiing in place as prescribed No Experienced any changes in pain level or No management Left Footwear Regular Shoe Right Footwear Regular Shoe Pain Scale: 0-10 Numeric Is Patient Pain Free? Yes WC - Nurse 1 - General Ulcer Measurement Start: 03/29/23 10:34 Freq: Status: Active Protocol: Activity Type Activity Date Activity User E-sign Co-sign Detail Recorded Client Recorded Date Recorded By Document 03/29/23 10:35 APOLLO [id number] 03/29/23 10:40 APOLLO 03/29/23 10:35 Wound Center Nurse 1 1-right Hip -Combined with other wound No -Current Size (cm) - Length 0.8 -Current Size (cm) - Width 0.7 -Current Size (cm) - Depth 0.1 -Total Square Cm 0.56 -Photo Taken No -Epithelialization Small 1-33% -Tunneling No -Undermining/Tunneling No -Circular Undermining No -Exudate Amt Small -Exudate Type Serosanguineous -Wound Margin Flat & Intact -Granulation Amt Small (1-33%) -Granulation Quality [place] -Slough/Fibrin Yes -Necrosis Amt Medium (34-66%) -Necrotic Tissue Type Adherent Slough -Structure Exposed N/A -Texture (Alisia-wound Skin Appearance) Assessed -Moisture (Alisia-wound Skin Appearance) Assessed,Dry/ Scaly -Color (Alisia-wound Skin Appearance) Assessed -Temperature (Alisia-wound Skin No Abnormality Appearance) (Pt Warm) -Tenderness on Palpation (Alisia-wound No Skin Appearance) -Ulcer Cleansing Rinsed/ Irrigated with Saline -Foul Odor after Cleansing No -Anesthetic Used 5% Lidocaine Gel Lower Limb Edema Present NA - Nurse 2 - General Ulcer CM Notes Start: 03/29/23 10:34 Freq: Status: Active Protocol: Activity Type Activity Date Activity User E-sign Co-sign Detail Recorded Client Recorded Date Recorded By Document 03/29/23 11:21 MW [id number] 03/29/23 11:31 MW 03/29/23 11:21 Wound Center Nurse 2 1-right Hip -Time 11:29 -Correct Patient Yes -Correct Side, Site, Position Yes -Correct Procedure Yes -Procedure Performed Yes -Type of Procedure Debridement -Clinical Debridement Subcutaneous -Tissue Removed Subcutaneous -Post Debridement (cm) - Length 0.7 -Post Debridement (cm) - Width 0.6 -Post Debridement (cm) - Depth 0.1 -Total Square (Post) (cm) 0.42 -Area of Debridement (cm) - Length 0.7 -Area of Debridement (cm) - Width 0.6 -Total Square (Area) (cm) 0.42 -Tunneling No -Undermining/Tunneling No -Circular Undermining No -Wound/Ulcer Outcome Not Healed -Ulcer Cleansing Rinsed/ Irrigated with Saline -Foul Odor after Cleansing No -Bioengineered Tissue No -Bleeding Controlled with Pressure -Treatment Response Procedure Tolerated Well -Offloading No -Debridement - Subq, 1st 20sq cm Yes Pain Scale: 0-10 Numeric Is Patient Pain Free? Yes - Nurse 3 - General Ulcer D/C NN Start: 03/29/23 10:34 Freq: Status: Active Protocol: Activity Type Activity Date Activity User E-sign Co-sign Detail Recorded Client Recorded Date Recorded By Document 03/29/23 11:33 MW [id number] 03/29/23 11:34 MW 03/29/23 11:33 Wound Care Center Nurse 3 1-right Hip -Ulcer Cleansing Rinsed/ Irrigated with Saline -Foul Odor after Cleansing No -Negative Pressure Wound Therapy N/A -Primary Dressing Applied Mepilex Border, NonAdherent Contact Layer, Promogran -Mepilex Border 1 -Promogran 1 Treatment Response Procedure Tolerated Well Pain Scale: 0-10 Numeric Is Patient Pain Free? 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 Continue Promogran, Adaptic and foam dressing. Avoid pressure to the right hip, reposition often. Adequate protein intake. Their questions were answered and they were advised to let us know if they have any further questions or co ncerns. Follow-up in 1 week or sooner if needed. This note was generated with [employer] dictation software. It may contain incorrect words, spelling, and punctuation that were not noted in checking the note before signing.
[2023-04-05 10:29] VITALS: BP 115/69; PULSE 66; RESP 18; TEMP 36.3; BMI 34.2
--- NOTE | 2023-04-05 11:28 | PN.PCM_ITS ---
History of Present Illness Date of Service: 04/05/23 Chief Complaint: Right Hip Ulcer History of Wound: Mr. Crawford is a 57 yo with history of intellectual disability brought in by his caregiver. Presents with a 1 month history of right hip area ulcer. Started when he was hospitalized for another unrelated condition. Measures so far have not helped. No known history of diabetes. No tobacco abuse. His appetite is good. No chills, fever or otherwise feeling of unwell. Progress of Wound: Some improvement. No new concerns at this time. Objective Data Objective Data Vital Signs: Vital Signs Temp Pulse Resp BP 97.3 F L 66 18 115/69 04/05/23 10:29 04/05/23 10:29 04/05/23 10:29 04/05/23 10:29 Weight: 260 lb Body Mass Index (BMI) 34.2 Charges/Coding Procedures Integumentary 111xxx-113xx: 18284 [place] subq tissue 20 sq cm/< Physical Exam Const alert and no apparent distress General Appearance: cooperative, comfortable and well kempt HEENT normocephalic and head/scalp atraumatic Neck full ROM General: normal visual inspection Resp normal respiratory effort Extremity no pedal edema Skin Wounds: wounds noted Neuro CN's II-XII intact bilaterally, moves all extremities and no focal motor deficits Psych cooperative Debridement Note Debridement Note Wound debrided: Right Hip Type of Debridement: Excisional debridement Anesthesia Used: 5% Lidocaine Gel Depth: Down to and including healthy tissue and in the subcutaneous layer Percentage of wound debrided: 100 Instrument Used: 3mm curette Tissue Removed: Slough and devitalized tissue Severity: Fat Layer Exposed Amount of bleeding with debridement: Mild Bleeding Controlled with: Pressure Patient tolerated procedure: Patient tolerated procedure well Post-Debridement Measurements and Additional Note: Post-Debridement Measurements/Treatment - Nurse 1 - General Ulcer Assessment Start: 03/29/23 10:34 Freq: Status: Active Protocol: KAN Activity Type Activity Date Activity User E-sign Co-sign Detail Recorded Client Recorded Date Recorded By Document 03/29/23 10:35 [id number] 03/29/23 10:40 APOLLO Document 04/05/23 10:29 APOLLO [id number] 04/05/23 10:44 APOLLO 03/29/23 04/05/23 10:35 10:29 - Today's Visit Information Type of service Follow-up Visit Follow-up Visit (Physician/AIRBORNE AND AIR DELIVERY SPECIALIST (Physician/AIRBORNE AND AIR DELIVERY SPECIALIST ) ) Arrival Mode Ambulatory, Wheelchair Wheelchair Transfer Assistance Manual Manual Accompanied by attendant from [facility] Patient Identification Verified (Name & No Yes ) Patient Requires Transmission-Based No No Precautions Height and Weight Body Mass Index (BMI) 34.2 34.2 BMI Classification Obese Obese Vital Signs Temperature (97.8 F-99.1 F) 97.0 F L 97.3 F L Temperature Source Temporal Temporal Pulse Rate (60-100) 69 66 Pulse Location Monitor Monitor Respiratory Rate (12-18) 16 18 Respiratory rate source Observation Observation Blood Pressure (90/60-120/80) 103/76 115/69 Blood Pressure Mean (mm Hg) 85 84 Source Monitor Monitor Position Sitting Sitting Blood Pressure Location Left Arm Left Arm History Since Last Visit- (Skip if this is Patient's initial visit) Have you changed medications since your No No last visit? Any new allergies or adverse reactions No No Had a fall/change in ADL's that may No No increase risk of falls Signs or symptoms of abuse and/or No No neglect since last visit Have you been in the hospital since your No last visit? Has dressing in place as prescribed No Yes Has compression in place as prescribed N/A N/A Has offloadiing in place as prescribed No N/A Experienced any changes in pain level or No No management Left Footwear Regular Shoe Regular Shoe Right Footwear Regular Shoe Regular Shoe Pain Scale: 0-10 Numeric Is Patient Pain Free? Yes Yes - Nurse 1 - General Ulcer Measurement Start: 03/29/23 10:34 Freq: Status: Active Protocol: Activity Type Activity Date Activity User E-sign Co-sign Detail Recorded Client Recorded Date Recorded By Document 03/29/23 10:35 [id number] 03/29/23 10:40 Document 04/05/23 10:29 [id number] 04/05/23 10:44 APOLLO 03/29/23 04/05/23 10:35 10:29 Wound Center Nurse 1 1-right Hip -Combined with other wound No No -Current Size (cm) - Length 0.8 0.4 -Current Size (cm) - Width 0.7 0.5 -Current Size (cm) - Depth 0.1 0.2 -Total Square Cm 0.56 0.20 -Photo Taken No No -Epithelialization Small 1-33% Medium 34-66% -Tunneling No No -Undermining/Tunneling No No -Circular Undermining No No -Exudate Amt Small Small -Exudate Type Serosanguineous Serosanguineous -Wound Margin Flat & Intact Flat & Intact -Granulation Amt Small (1-33%) Medium (34-66%) -Granulation Quality [place] -Slough/Fibrin Yes Yes -Necrosis Amt Medium (34-66%) Small (1-33%) -Necrotic Tissue Type Adherent Slough Adherent Slough -Structure Exposed N/A N/A -Texture (Alisia-wound Skin Appearance) Assessed Assessed -Moisture (Alisia-wound Skin Appearance) Assessed,Dry/ Assessed,Dry/ Scaly Scaly -Color (Alisia-wound Skin Appearance) Assessed Assessed -Temperature (Alisia-wound Skin No Abnormality No Abnormality Appearance) (Pt Warm) (Pt Warm) -Tenderness on Palpation (Alisia-wound No No Skin Appearance) -Ulcer Cleansing Rinsed/ Rinsed/ Irrigated with Irrigated with Saline Saline -Foul Odor after Cleansing No No -Anesthetic Used 5% Lidocaine 5% Lidocaine Gel Gel Lower Limb Edema Present NA NA WC - Nurse 2 - General Ulcer CM Notes Start: 03/29/23 10:34 Freq: Status: Active Protocol: Activity Type Activity Date Activity User E-sign Co-sign Detail Recorded Client Recorded Date Recorded By Document 03/29/23 11:21 MW [id number] 03/29/23 11:31 MW Document 04/05/23 11:22 MW [id number] 04/05/23 11:25 MW 03/29/23 04/05/23 11:21 11:22 Wound Center Nurse 2 1-right Hip -Time 11:29 11:24 -Correct Patient Yes Yes -Correct Side, Site, Position Yes Yes -Correct Procedure Yes Yes -Procedure Performed Yes Yes -Type of Procedure Debridement Debridement -Clinical Debridement Subcutaneous Subcutaneous -Tissue Removed Subcutaneous Subcutaneous -Post Debridement (cm) - Length 0.7 0.6 -Post Debridement (cm) - Width 0.6 0.5 -Post Debridement (cm) - Depth 0.1 0.1 -Total Square (Post) (cm) 0.42 0.30 -Area of Debridement (cm) - Length 0.7 0.6 -Area of Debridement (cm) - Width 0.6 0.5 -Total Square (Area) (cm) 0.42 0.30 -Tunneling No No -Undermining/Tunneling No No -Circular Undermining No No -Wound/Ulcer Outcome Not Healed Not Healed -Ulcer Cleansing Rinsed/ Rinsed/ Irrigated with Irrigated with Saline Saline -Foul Odor after Cleansing No No -Bioengineered Tissue No No -Bleeding Controlled with Pressure Pressure -Treatment Response Procedure Procedure Tolerated Well Tolerated Well -Offloading No No -Debridement - Subq, 1st 20sq cm Yes Yes Pain Scale: 0-10 Numeric Is Patient Pain Free? Yes Yes - Nurse 3 - General Ulcer D/C NN Start: 03/29/23 10:34 Freq: Status: Active Protocol: Activity Type Activity Date Activity User E-sign Co-sign Detail Recorded Client Recorded Date Recorded By Document 03/29/23 11:33 MW [id number] 03/29/23 11:34 MW Document 04/05/23 11:25 MW [id number] 04/05/23 11:26 MW 03/29/23 04/05/23 11:33 11:25 Wound Care Center Nurse 3 1-right Hip -Ulcer Cleansing Rinsed/ Rinsed/ Irrigated with Irrigated with Saline Saline -Foul Odor after Cleansing No No -Negative Pressure Wound Therapy N/A N/A -Primary Dressing Applied Mepilex Border, Mepilex Border, NonAdherent Promogran Contact Layer, Promogran -Mepilex Border 1 1 -Promogran 1 1 Treatment Response Procedure Procedure Tolerated Well Tolerated Well Pain Scale: 0-10 Numeric Is Patient Pain Free? 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 Some improvement noted. Continue Promogran, Adaptic and foam dressing. Avoid pressure to the right hip, reposition often. Adequate protein intake. Their questions were answered and they were advised to let us know if they have any further questions or concerns. Follow-up in 2 weeks or sooner if needed. This note was generated with [employer] dictation software. It may contain incorrect words, spelling, and punctuation that were not noted in checking the note before signing.
== END 2023-04-23 23:59 | disposition home or self-care (01) ==
LOC: WC 10:30
PROVIDERS: PCP Family Medicine; Referring Provider Nurse Practitioner Family; Visit Provider Internal Medicine
DX: L98.492 Non-pressure chronic ulcer of skin of other sites with fat layer exposed (principal); G40.909 Epilepsy, unspecified, not intractable, without status epilepticus; F79 Unspecified intellectual disabilities; F84.0 Autistic disorder; Z79.899 Other long term (current) drug therapy; R41.89 Other symptoms and signs involving cognitive functions and awareness
CPT/HCPCS: 11042

== ENCOUNTER 2023-04-26 10:11 | Outpatient (RCR) | payer MEDICARE, MEDICAID, SELFPAY ==
[2023-04-24 00:21] VITALS: BP 115/69; PULSE 66; RESP 18; TEMP 36.3; BMI 34.2
[2023-04-26 10:25] VITALS: BP 127/86; PULSE 83; RESP 18; TEMP 35.9; BMI 34.2
--- NOTE | 2023-04-26 12:44 | PCM.WC.PN ---
History of Present Illness Date of Service: 04/26/23 Chief Complaint: Right Hip Ulcer History of Wound: Mr. Crawford is a 57 yo with history of intellectual disability brought in by his caregiver. Presents with a 1 month history of right hip area ulcer. Started when he was hospitalized for another unrelated condition. Measures so far have not helped. No known history of diabetes. No tobacco abuse. His appetite is good. No chills, fever or otherwise feeling of unwell. Progress of Wound: No new concerns at this time. Good improvement since his last visit. Objective Data Objective Data Vital Signs: Vital Signs Temp Pulse Resp BP 96.6 F L 83 18 127/86 H 04/26/23 10:25 04/26/23 10:25 04/26/23 10:25 04/26/23 10:25 Weight: 260 lb Body Mass Index (BMI) 34.2 Physical Exam Const alert and no apparent distress General Appearance: cooperative, comfortable and well kempt HEENT normocephalic and head/scalp atraumatic Neck full ROM General: normal visual inspection Resp normal respiratory effort Extremity no pedal edema Skin Wounds: wounds noted Neuro CN's II-XII intact bilaterally, moves all extremities and no focal motor deficits Psych cooperative Debridement Note Debridement Note Post-Debridement Measurements and Additional Note: Post-Debridement Measurements/Treatment - Nurse 1 - General Ulcer Assessment Start: 04/26/23 10:24 Freq: Status: Active Protocol: .LOWCHEIKH Activity Type Activity Date Activity User E-sign Co-sign Detail Recorded Client Recorded Date Recorded By Document 04/26/23 10:25 [id number] 04/26/23 10:26 04/26/23 10:25 - Today's Visit Information Type of service Follow-up Visit (Physician/ANALYTICAL LEAD ) Arrival Mode Wheelchair Transfer Assistance Manual Patient Identification Verified (Name & No ) Patient Requires Transmission-Based Yes Precautions Safety Precautions Sitter at Bedside Height and Weight Body Mass Index (BMI) 34.2 BMI Classification Obese Vital Signs Temperature (97.8 F-99.1 F) 96.6 F L Temperature Source Temporal Pulse Rate (60-100) 83 Pulse Location Monitor Respiratory Rate (12-18) 18 Respiratory rate source Observation Blood Pressure (90/60-120/80) 127/86 H Blood Pressure Mean (mm Hg) 99 Source Monitor Position Semi-Fowlers Blood Pressure Location Left Arm History Since Last Visit- (Skip if this is Patient's initial visit) Have you changed medications since your No last visit? Any new allergies or adverse reactions No Had a fall/change in ADL's that may No increase risk of falls Signs or symptoms of abuse and/or No neglect since last visit Have you been in the hospital since your No last visit? Has dressing in place as prescribed Yes Has compression in place as prescribed No Has offloadiing in place as prescribed No Experienced any changes in pain level or No management Pain Scale: 0-10 Numeric Is Patient Pain Free? Yes WC - Nurse 1 - General Ulcer Measurement Start: 04/26/23 10:24 Freq: Status: Active Protocol: Activity Type Activity Date Activity User E-sign Co-sign Detail Recorded Client Recorded Date Recorded By Document 04/26/23 10:25 RB [id number] 04/26/23 10:26 RB 04/26/23 10:25 Wound Center Nurse 1 1-right Hip -Combined with other wound No -Current Size (cm) - Length 0 -Current Size (cm) - Width 0 -Current Size (cm) - Depth 0 -Total Square Cm 0 -Photo Taken Yes -Epithelialization Large 67-100% FERNIE - Nurse 2 - General Ulcer CM Notes Start: 04/26/23 10:24 Freq: Status: Active Protocol: Activity Type Activity Date Activity User E-sign Co-sign Detail Recorded Client Recorded Date Recorded By Document 04/26/23 10:51 MW [id number] 04/26/23 10:53 MW 04/26/23 10:51 Wound Center Nurse 2 -Time 10:51 -Correct Patient Yes -Correct Side, Site, Position Yes -Correct Procedure Yes -Procedure Performed No -Post Debridement (cm) - Length 0.1 -Post Debridement (cm) - Width 0.1 -Post Debridement (cm) - Depth 0.1 -Total Square (Post) (cm) 0.01 -Tunneling No -Undermining/Tunneling No -Circular Undermining No -Wound/Ulcer Outcome Not Healed -Ulcer Cleansing Rinsed/ Irrigated with Saline -Foul Odor after Cleansing No -Bleeding Controlled with NA Pain Scale: 0-10 Numeric Is Patient Pain Free? Yes FERNIE - Nurse 3 - General Ulcer D/C NN Start: 04/26/23 10:24 Freq: Status: Active Protocol: Activity Type Activity Date Activity User E-sign Co-sign Detail Recorded Client Recorded Date Recorded By Document 04/26/23 10:53 MW [id number] 04/26/23 10:55 MW 04/26/23 10:53 Wound Care Center Nurse 3 1-right Hip -Ulcer Cleansing Rinsed/ Irrigated with Saline -Foul Odor after Cleansing No -Negative Pressure Wound Therapy N/A -Primary Dressing Applied NonAdherent Contact Layer, Promogran -Primary Dressing Covered/Secured with Dry Gauze, Secured with Tape -Promogran 1 Treatment Response Procedure Tolerated Well Pain Scale: 0-10 Numeric Is Patient Pain Free? 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 No debridement completed today. Continue Promogran, Adaptic and foam dressing. Avoid pressure to the right hip, reposition often. Adequate protein intake. Their questions were answered and they were advised to let us know if they have any further questions or concerns. Follow-up 1 week or sooner if needed. This note was generated with [employer] software. It may contain incorrect words, spelling, and punctuation that were not noted in checking the note before signing.
== END 2023-05-23 15:58 | disposition home or self-care (01) ==
LOC: WC 10:11
PROVIDERS: PCP Family Medicine; Referring Provider Nurse Practitioner Family; Visit Provider Internal Medicine
DX: L97.112 Non-pressure chronic ulcer of right thigh with fat layer exposed (principal); F79 Unspecified intellectual disabilities; R41.89 Other symptoms and signs involving cognitive functions and awareness; F84.0 Autistic disorder
CPT/HCPCS: 99203; G0463

== ENCOUNTER 2023-05-02 07:28 | Outpatient (RCR) | payer MEDICARE, MEDICAID, SELFPAY ==
[2023-05-02 07:48] LABS: Absolute Lymphocyte Count 1.42 X10^3/uL (0.83-4.51); Absolute Neutrophil Count 2.9 X10^3/uL (2.0-7.7); Basophil# 0.04 X10^3/uL; Basophil% 0.8 % (0-1); Eosinophil# 0.13 X10^3/uL; Eosinophils% 2.6 % (0-5); Hematocrit 44.7 % (40-54); Hemoglobin 14.7 g/dL (13.0-16.5); Lymphocyte # 1.42 X10^3/ul (0.83-4.51); Lymphocyte % 28.9 % (19-41); Mean Corp Hgb Conc 32.9 g/dL (32-36); Mean Corpuscular Hgb 29.8 pg (27.0-32.0); Mean Corpuscular Volume 90.7 fL (80-94); Mean Platelet Vol. 11.1 fl (6.2-12.0); Monocyte# 0.44 X10^3/uL; NRBC Flagged by Analyzer 0 % (0-5); Neutrophil # 2.87 X10^3/uL (2.7-7.7); Neutrophil % 58.5 % (47-70); Platelet Count 145 K/mm3 (150-450); RBC Distribution Width CV 13.1 % (11.6-14.6); RBC Distribution Width SD 43.2 fl (35.1-43.9); Red Blood Count 4.93 M/mm3 (4.6-6.2); White Blood Count 4.9 K/mm3 (4.4-11.0)
== END 2023-05-24 23:59 ==
LOC: LABSPEC 07:28
PROVIDERS: PCP Family Medicine; Referring Provider Internal Medicine; Visit Provider Internal Medicine
DX: F29 Unspecified psychosis not due to a substance or known physiological condition (principal); F84.0 Autistic disorder
CPT/HCPCS: 85025

== ENCOUNTER 2023-05-30 06:03 | Outpatient (RCR) | payer MEDICARE, MEDICAID, SELFPAY ==
[2023-05-30 06:12] LABS: Absolute Lymphocyte Count 1.61 X10^3/uL (0.83-4.51); Absolute Neutrophil Count 2.2 X10^3/uL (2.0-7.7); Basophil# 0.03 X10^3/uL; Basophil% 0.7 % (0-1); Eosinophil# 0.12 X10^3/uL; Eosinophils% 2.7 % (0-5); Hematocrit 44.1 % (40-54); Lymphocyte # 1.61 X10^3/ul (0.83-4.51); Lymphocyte % 36.3 % (19-41); Mean Corpuscular Hgb 30.4 pg (27.0-32.0); Mean Corpuscular Volume 89.3 fL (80-94); Mean Platelet Vol. 11.3 fl (6.2-12.0); Monocyte# 0.44 X10^3/uL; Monocyte% 9.9 % (0-10); NRBC Flagged by Analyzer 0 % (0-5); Neutrophil # 2.23 X10^3/uL (2.7-7.7); Neutrophil % 50.2 % (47-70); Platelet Count 167 K/mm3 (150-450); RBC Distribution Width CV 13.2 % (11.6-14.6); RBC Distribution Width SD 42.5 fl (35.1-43.9); Red Blood Count 4.94 M/mm3 (4.6-6.2); White Blood Count 4.4 K/mm3 (4.4-11.0)
== END 2023-06-23 23:59 ==
LOC: LABSPEC 06:03
PROVIDERS: PCP Family Medicine; Referring Provider Internal Medicine; Visit Provider Internal Medicine
DX: F29 Unspecified psychosis not due to a substance or known physiological condition (principal)
CPT/HCPCS: 85025

== ENCOUNTER 2023-05-31 09:09 | Outpatient (RCR) | payer MEDICARE, MEDICAID, SELFPAY ==
[2023-05-31 09:25] VITALS: PULSE 82; RESP 18; TEMP 36.1
--- NOTE | 2023-05-31 09:48 | PN.PCM_ITS ---
History of Present Illness Date of Service: 05/31/23 Chief Complaint: Right Hip Ulcer History of Wound: Mr. Crawford is a 57 yo with history of intellectual disability brought in by his caregiver. Presents with a 1 month history of right hip area ulcer. Started when he was hospitalized for another unrelated condition. Measures so far have not helped. No known history of diabetes. No tobacco abuse. His appetite is good. No chills, fever or otherwise feeling of unwell. Progress of Wound: Healed. No new concerns at this time. Objective Data Objective Data Vital Signs: Vital Signs Temp Pulse Resp 97 F L 82 18 05/31/23 09:25 05/31/23 09:25 05/31/23 09:25 Charges/Coding Visit Charges Office Visits / Consults: 54144 OV L3 Est Physical Exam Const alert and no apparent distress General Appearance: cooperative, comfortable and well kempt HEENT normocephalic and head/scalp atraumatic Neck full ROM General: normal visual inspection Resp normal respiratory effort Extremity no pedal edema Neuro CN's II-XII intact bilaterally, moves all extremities and no focal motor deficits Psych cooperative Debridement Note Debridement Note Post-Debridement Measurements and Additional Note: Post-Debridement Measurements/Treatment WC - Nurse 1 - General Ulcer Assessment Start: 05/31/23 09:15 Freq: Status: Active Protocol: KAN Activity Type Activity Date Activity User E-sign Co-sign Detail Recorded Client Recorded Date Recorded By Document 05/31/23 09:25 JARAD [id number] 05/31/23 09:27 JARAD 05/31/23 09:25 - Today's Visit Information Type of service Follow-up Visit (Physician/NUTRITIONAL YEAST SUPERVISOR ) Arrival Mode Wheelchair Transfer Assistance None Patient Identification Verified (Name & Yes ) Patient Requires Transmission-Based No Precautions Vital Signs Temperature (97.8 F-99.1 F) 97 F L Temperature Source Temporal Pulse Rate (60-100) 82 Pulse Location Monitor Respiratory Rate (12-18) 18 Respiratory rate source Observation History Since Last Visit- (Skip if this is Patient's initial visit) Have you changed medications since your No last visit? Any new allergies or adverse reactions No Had a fall/change in ADL's that may No increase risk of falls Signs or symptoms of abuse and/or No neglect since last visit Have you been in the hospital since your No last visit? Has dressing in place as prescribed Yes Has compression in place as prescribed No Has offloadiing in place as prescribed No Experienced any changes in pain level or No management Pain Scale: 0-10 Numeric Is Patient Pain Free? Yes WC - Nurse 1 - General Ulcer Measurement Start: 05/31/23 09:15 Freq: Status: Active Protocol: Activity Type Activity Date Activity User E-sign Co-sign Detail Recorded Client Recorded Date Recorded By Document 05/31/23 09:25 RB [id number] 05/31/23 09:27 RB 05/31/23 09:25 Wound Center Nurse 1 1-right Hip -Combined with other wound No -Current Size (cm) - Length 0 -Current Size (cm) - Width 0 -Current Size (cm) - Depth 0 -Total Square Cm 0 -Photo Taken Yes -Epithelialization Large 67-100% -Tunneling No -Undermining/Tunneling No -Circular Undermining No -Exudate Amt None Present -Granulation Amt Large (67-100%) -Granulation Quality [place] -Slough/Fibrin No -Necrosis Amt None Present (0 %) -Structure Exposed N/A -Texture (Alisia-wound Skin Appearance) Assessed -Moisture (Alisia-wound Skin Appearance) Assessed -Color (Alisia-wound Skin Appearance) Assessed -Temperature (Alisia-wound Skin No Abnormality Appearance) (Pt Warm) -Tenderness on Palpation (Alisia-wound No Skin Appearance) -Ulcer Cleansing Wound Cleanser -Foul Odor after Cleansing No -Anesthetic Used 5% Lidocaine Gel WC - Nurse 2 - General Ulcer CM Notes Start: 05/31/23 09:15 Freq: Status: Active Protocol: Activity Type Activity Date Activity User E-sign Co-sign Detail Recorded Client Recorded Date Recorded By Document 05/31/23 09:29 APOLLO [id number] 05/31/23 09:30 APOLLO 05/31/23 09:29 Wound Center Nurse 2 -Correct Patient No -Correct Side, Site, Position No -Correct Procedure No -Procedure Performed No -Post Debridement (cm) - Length 0 -Post Debridement (cm) - Width 0 -Post Debridement (cm) - Depth 0 -Total Square (Post) (cm) 0 -Wound/Ulcer Outcome Healed- Epithelialized Pain Scale: 0-10 Numeric Is Patient Pain Free? Yes FERNIE - Nurse 3 - General Ulcer D/C NN Start: 05/31/23 09:15 Freq: Status: Active Protocol: Activity Type Activity Date Activity User E-sign Co-sign Detail Recorded Client Recorded Date Recorded By Document 05/31/23 09:39 RB [id number] 05/31/23 09:40 RB 05/31/23 09:39 Wound Care Center Nurse 3 Treatment Response Procedure Tolerated Well Pain Scale: 0-10 Numeric Is Patient Pain Free? 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 No debridement completed today. Adaptic and foam dressing for 2 weeks then stop. Offloading discussed with caregivers, they voiced understanding. Their questions were answered and they are advised to let us know if they have any further questions or concerns. Discharge from the wound center. This note was generated with [employer] software. It may contain incorrect words, spelling, and punctuation that were not noted in checking the note before signing.
== END 2023-05-31 16:56 | disposition home or self-care (01) ==
LOC: WC 09:09
PROVIDERS: PCP Family Medicine; Referring Provider Internal Medicine; Visit Provider Internal Medicine
DX: Z09 Encounter for follow-up examination after completed treatment for conditions other than malignant neoplasm (principal); F84.0 Autistic disorder; R41.89 Other symptoms and signs involving cognitive functions and awareness
CPT/HCPCS: 99213; G0463

== ENCOUNTER → 2023-06-15 | Outpatient (CLI) | payer MEDICARE, MEDICAID, SELFPAY ==
[2023-06-15 06:30] LABS: Absolute Lymphocyte Count 1.42 X10^3/uL (0.83-4.51); Absolute Neutrophil Count 2.7 X10^3/uL (2.0-7.7); Basophil# 0.05 X10^3/uL; Eosinophil# 0.13 X10^3/uL; Eosinophils% 2.7 % (0-5); Hematocrit 45.5 % (40-54); Lymphocyte # 1.42 X10^3/ul (0.83-4.51); Lymphocyte % 29.6 % (19-41); Mean Corpuscular Hgb 29.6 pg (27.0-32.0); Mean Corpuscular Volume 89.9 fL (80-94); Mean Platelet Vol. 10.9 fl (6.2-12.0); Monocyte# 0.45 X10^3/uL; Monocyte% 9.4 % (0-10); NRBC Flagged by Analyzer 0 % (0-5); Neutrophil # 2.74 X10^3/uL (2.7-7.7); Neutrophil % 57.1 % (47-70); Platelet Count 162 K/mm3 (150-450); RBC Distribution Width SD 42.5 fl (35.1-43.9); Red Blood Count 5.06 M/mm3 (4.6-6.2); White Blood Count 4.8 K/mm3 (4.4-11.0)
== END | disposition home or self-care (01) ==
PROVIDERS: PCP Family Medicine; Referring Provider Internal Medicine; Visit Provider Internal Medicine
DX: F29 Unspecified psychosis not due to a substance or known physiological condition (principal)
CPT/HCPCS: 85025

== ENCOUNTER 2023-06-27 16:25 | Emergency (ER) | payer MEDICARE, MEDICAID, SELFPAY ==
[2023-06-27 16:27] VITALS: BP 149/75; PULSE 59; RESP 16; TEMP 36.6; O2SAT 97; BMI 27.7
--- NOTE | 2023-06-27 16:45 | CT_ITS ---
STUDY: CT CERVICAL SPINE WITHOUT CONTRAST REASON FOR EXAM: Male, 58 years old. polytrauma RADIATION DOSAGE (If Supplied By Facility): CTDIvol = ( 20.77 ) mGy, DLP = ( 379.83 ) mGycm TECHNIQUE: High resolution transaxial imaging was performed without contrast material. Sagittal and coronal images were reconstructed. Individualized dose optimization techniques were used for this CT. COMPARISON: 07/24/2016 FINDINGS: No definite acute fracture/dislocation. The cervical junction is intact. C1-C2 articulation is intact. Curvature is within normal limits. There is normal alignment. Facet joints are intact at all levels bilaterally. No jumped facets. There is multilevel spondyloarthropathy. Multilevel degenerative disc disease seen. Multilevel loss of disc height. Multilevel anterior posterior marginal osteophytes and disc bulges. 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 Multilevel neural foraminal narrowing. Multilevel narrowing of the spinal canal. Visualized paraspinal soft tissues and structures are unremarkable. CT/Spine Cervical without Contras IMPRESSION: There is no definite acute fracture/dislocation. Degenerative changes, worse than prior study. Electronically Signed: Tino Jacobs MD at 17:41 EDT ,
--- NOTE | 2023-06-27 16:45 | CT_ITS ---
STUDY: CT BRAIN WITHOUT CONTRAST REASON FOR EXAM: Male, 58 years old. head injury RADIATION DOSAGE (If Supplied By Facility): CTDIvol = ( 44.99 ) mGy, DLP = ( 863.60 ) mGycm TECHNIQUE: Transaxial CT imaging of the brain was performed without administration of intravenous contrast material. Individualized dose optimization techniques were used for this CT. COMPARISON: 02/13/2022 FINDINGS: Normal soft tissue structures. Normal calvarium. Normal size ventricles and extra-axial spaces for the patient''s age. Normal white matter tracts of the cerebral hemispheres. Normal basal ganglia and thalami. Normal brainstem. Normal cerebellum. There is no intracranial hemorrhage. There are no findings of an acute ischemic infarction. Normal visualized paranasal sinuses. Stable post surgical changes of the right globe. CT/Brain/Head without Contrast IMPRESSION: Normal unenhanced CT scan of the brain. Electronically Signed: Tino Jacobs MD at 17:37 EDT ,
--- NOTE | 2023-06-27 17:05 | RAD_ITS ---
STUDY: X-RAY - LEFT SHOULDER REASON FOR EXAM: Male, 58 years old. injury TECHNIQUE: 2 view(s) of the shoulder. COMPARISON: None. FINDINGS: Normal glenohumeral articulation. Normal acromioclavicular joint. Normal acromion. Normal humeral head and visualized proximal humerus. The soft tissue structures are unremarkable. There is no demonstrated fracture. Normal visualized pulmonary apex. RAD/Shoulder min 2 Views IMPRESSION: No acute fracture or dislocation. Electronically Signed: Tino Jacobs MD at 18:08 EDT ,
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
[2023-06-27] MEDS: Acetaminophen 500 MG Tablet 1000 MG PO (17:56)
== END 2023-06-27 18:19 | disposition home or self-care (01) ==
PROVIDERS: Emergency Provider Emergency Medicine; PCP Family Medicine; Visit Provider Emergency Medicine
DX: S00.01XA Abrasion of scalp, initial encounter (principal); S16.1XXA Strain of muscle, fascia and tendon at neck level, initial encounter; S40.012A Contusion of left shoulder, initial encounter; F84.0 Autistic disorder; Z79.899 Other long term (current) drug therapy; W05.0XXA Fall from non-moving wheelchair, initial encounter
CPT/HCPCS: 70450; 72125; 73030; 99284

== ENCOUNTER → 2023-07-11 | Outpatient (CLI) | payer MEDICARE, MEDICAID, SELFPAY ==
[2023-07-11 06:58] LABS: Absolute Lymphocyte Count 1.22 X10^3/uL (0.83-4.51); Basophil# 0.04 X10^3/uL; Basophil% 0.7 % (0-1); Eosinophil# 0.11 X10^3/uL; Eosinophils% 1.8 % (0-5); Hemoglobin 14.9 g/dL (13.0-16.5); Lymphocyte # 1.22 X10^3/ul (0.83-4.51); Lymphocyte % 20.2 % (19-41); Mean Corp Hgb Conc 31.7 g/dL (32-36); Mean Corpuscular Hgb 29.9 pg (27.0-32.0); Mean Corpuscular Volume 94.4 fL (80-94); Mean Platelet Vol. 11.2 fl (6.2-12.0); Monocyte# 0.67 X10^3/uL; Monocyte% 11.1 % (0-10); NRBC Flagged by Analyzer 0 % (0-5); Neutrophil # 3.98 X10^3/uL (2.7-7.7); Neutrophil % 65.9 % (47-70); Platelet Count 152 K/mm3 (150-450); RBC Distribution Width SD 44.8 fl (35.1-43.9); Red Blood Count 4.98 M/mm3 (4.6-6.2)
== END | disposition home or self-care (01) ==
PROVIDERS: PCP Family Medicine; Visit Provider Internal Medicine
DX: F29 Unspecified psychosis not due to a substance or known physiological condition (principal)
CPT/HCPCS: 85025

== ENCOUNTER 2023-08-06 06:58 | Outpatient (RCR) | payer MEDICARE, MEDICAID, SELFPAY ==
[2023-08-06 07:12] LABS: Absolute Lymphocyte Count 1.44 X10^3/uL (0.83-4.51); Absolute Neutrophil Count 2.4 X10^3/uL (2.0-7.7); Basophil# 0.05 X10^3/uL; Basophil% 1.1 % (0-1); Eosinophil# 0.22 X10^3/uL; Eosinophils% 4.7 % (0-5); Hematocrit 44.4 % (40-54); Hemoglobin 14.4 g/dL (13.0-16.5); Lymphocyte # 1.44 X10^3/ul (0.83-4.51); Mean Corp Hgb Conc 32.4 g/dL (32-36); Mean Corpuscular Hgb 29.6 pg (27.0-32.0); Mean Corpuscular Volume 91.2 fL (80-94); Mean Platelet Vol. 11.1 fl (6.2-12.0); Monocyte# 0.49 X10^3/uL; Monocyte% 10.5 % (0-10); NRBC Flagged by Analyzer 0 % (0-5); Neutrophil # 2.44 X10^3/uL (2.7-7.7); Neutrophil % 52.5 % (47-70); Platelet Count 169 K/mm3 (150-450); Red Blood Count 4.87 M/mm3 (4.6-6.2); White Blood Count 4.7 K/mm3 (4.4-11.0)
== END 2023-08-23 23:59 ==
LOC: LABSPEC 06:58
PROVIDERS: PCP Family Medicine; Referring Provider Internal Medicine; Visit Provider Internal Medicine
DX: F29 Unspecified psychosis not due to a substance or known physiological condition (principal)
CPT/HCPCS: 85025

== ENCOUNTER 2023-09-10 07:37 | Outpatient (RCR) | payer MEDICARE, MEDICAID, SELFPAY ==
[2023-09-10 08:38] LABS: Absolute Lymphocyte Count 0.73 X10^3/uL (0.83-4.51); Absolute Neutrophil Count 2.8 X10^3/uL (2.0-7.7); Basophil# 0.02 X10^3/uL; Basophil% 0.5 % (0-1); Eosinophil# 0.09 X10^3/uL; Eosinophils% 2.1 % (0-5); Hemoglobin 13.7 g/dL (13.0-16.5); Lymphocyte # 0.73 X10^3/ul (0.83-4.51); Mean Corp Hgb Conc 32.6 g/dL (32-36); Mean Corpuscular Hgb 29.8 pg (27.0-32.0); Mean Corpuscular Volume 91.3 fL (80-94); Mean Platelet Vol. 11.7 fl (6.2-12.0); NRBC Flagged by Analyzer 0 % (0-5); Neutrophil # 2.84 X10^3/uL (2.7-7.7); Neutrophil % 66.2 % (47-70); POSITIVE COUNT YES; Platelet Count 141 K/mm3 (150-450); RBC Distribution Width CV 13.1 % (11.6-14.6); RBC Distribution Width SD 44.2 fl (35.1-43.9); White Blood Count 4.3 K/mm3 (4.4-11.0)
== END 2023-09-23 23:59 ==
LOC: LABSPEC 07:37
PROVIDERS: PCP Family Medicine; Referring Provider Internal Medicine; Visit Provider Internal Medicine
DX: F29 Unspecified psychosis not due to a substance or known physiological condition (principal)
CPT/HCPCS: 85025

== ENCOUNTER 2023-09-13 08:14 | Inpatient (IN) | payer MEDICARE, MEDICAID, SELFPAY ==
[2023-09-13] VITALS (9 sets, daily range): BP systolic 132–157; BP diastolic 70–106; PULSE 45–65; RESP 17–22; TEMP 36.1–36.6; O2SAT 89–100; BMI 27.3
--- NOTE | 2023-09-13 08:46 | EDS_ITS ---
HPI History of Present Illness Chief Complaint: Cough Informant: family and EMS Narrative Narrative: Patient is a 58-year-old male with history of autism, nonverbal, bowel obstructions, secondary Parkinson's, hyperlipidemia and recent treatment for pneumonia (on day 7 (last day) of doxycycline presenting for worsening cough, increased weakness and new O2 requirements. Per EMS report patient was 84% on room air. Does not wear supplemental oxygen normally. EMS states he was 87% on room air. He does not have home oxygen set up at the retirement. Paperwork does show that patient is DNR CC. I spoke with the patient's father, Jimi, who is his medical POA, who states that he is comfortable with him being treated but wanted to be reasonable. Feels that if he is at the end of his life would like him to comfortably but if he can receive IV antibiotics and oxygen and get better would like that as well. Notes that he has had a harder time communicating with him over the past few days. He is now wheelchair-bound. I then spoke to Cierra, his home health nurse who sees him at least twice a day. She notes that he has improved at all since being on the doxycycline and seems to have increased difficulty following directions. She also is concerned is not really able to use his albuterol with spacer as he has a hard time following directions. She feels that he benefit from home nebulizer as well as oxygen which would need to be delivered to the retirement. Patient currently has no complaints at this time but is minimally verbal. [facility] Medical History Abrasion of hip, right Autism Cellulitis of right upper extremity Cognitive impairment Constipation Impulse control disorder Non-smoker Seizure disorder Seizures Skin ulcer of right hip with fat layer exposed Home Medications clozapine 100 mg tablet 100 mg PO DAILY anxiety 07/24/16 [History Last Taken 04/03/22] clozapine 100 mg tablet 200 mg PO QHS anxiety 07/24/16 [History Last Taken 04/02/22] fluticasone propionate 50 mcg/actuation nasal spray,suspension 1 spray DAILY allergies 07/24/16 [History Last Taken 04/03/22] peg 400-propylene glycol (PF) 0.4 %-0.3 % eye drops in a dropperette (Systane (PF)) 1 ea OP BID PRN eye irritation 07/24/16 [History Last Taken 03/30/22] polyethylene glycol 3350 17 gram oral powder packet 17 g PO DAILY constipation 07/24/16 [History Last Taken 04/03/22] docusate sodium 100 mg capsule 200 mg PO BID constipation 02/10/22 [History Last Taken 04/03/22] doxazosin 4 mg tablet 4 mg PO QHS htn 02/10/22 [History Last Taken 04/02/22] albuterol sulfate 90 mcg/actuation aerosol inhaler (Ventolin HFA) 2 puff inhalation Q4H PRN PRN Wheezing ##1 03/14/22 [Rx Last Taken 04/02/22] lacosamide 50 mg tablet (Vimpat) 50 mg PO BID . 04/03/22 [History Last Taken 04/03/22] albuterol sulfate 2.5 mg/3 mL (0.083 %) solution for nebulization 2.5 mg (3 mL) inhalation Q2H PRN PRN Shortness of Breath/Wheezing #0 mL 04/05/22 [Rx Last Taken Unknown] levetiracetam 500 mg tablet (Keppra) 500 mg PO BID 01/26/23 [History Last Taken Unknown] acetaminophen 500 mg tablet (Acetaminophen Extra Strength) 1,000 mg PO Q6H PRN Pain 03/08/23 [History Last Taken Unknown] clotrimazole 1 % topical cream 1 applic topical BID 03/08/23 [History Last Taken Unknown] lactulose 30 ml 03/08/23 [History Last Taken Unknown] multivitamin 1 tab PO DAILY 03/08/23 [History Last Taken Unknown] Allergy/AdvReac Type Severity Reaction Status Date / Time No Known Allergies Allergy Verified 09/13/23 08:16 Family History Mother Seizures COPD (chronic obstructive pulmonary disease) Father Glaucoma Surgical History History of lingual frenulectomy History of rectal surgery Social History housing: other details: [facility]. Smoking Status: Never smoker alcohol intake: never substance use type: does not use ROS ROS ED Review of Systems ROS Unobtainable: due to mental status Respiratory/Chest Respiratory/Chest: Reports cough and dyspnea EXAM Physical Exam Const Vital Signs: 09/13/23 08:17 09/13/23 08:22 09/13/23 08:22 Temperature 97.8 F 97.9 F Temperature Source Oral Oral Pulse Rate 60 60 Respiratory Rate 17 22 H Respiratory Effort Respiratory Depth Respiratory Pattern Blood Pressure 132/89 H 132/89 H Blood Pressure Mean 103 103 Pulse Ox 89 95 95 Oxygen Delivery Method Room Air Nasal Cannula Nasal Cannula Oxygen Flow Rate (L/min) 2 2 09/13/23 08:26 09/13/23 09:17 09/13/23 09:21 Temperature Temperature Source Pulse Rate 57 L Respiratory Rate 20 H Respiratory Effort Normal Non-Labored Respiratory Depth Normal Respiratory Pattern Tachypnea Normal Blood Pressure Blood Pressure Mean Pulse Ox Oxygen Delivery Method Nasal Cannula Nasal Cannula Oxygen Flow Rate (L/min) 2 2 09/13/23 10:32 Temperature 98 F Temperature Source Oral Pulse Rate 52 L Respiratory Rate 18 Respiratory Effort Respiratory Depth Respiratory Pattern Blood Pressure 157/89 H Blood Pressure Mean 111 Pulse Ox 98 Oxygen Delivery Method Nasal Cannula Oxygen Flow Rate (L/min) 2 Positive well nourished and unkempt General Appearance ED: unkempt and NAD HEENT Reports moist mucous membranes HEENT Narrative: drooling slightly, but overall handling secretions. Eyes PERRL and EOMs intact bilaterally Neck supple and no JVD Resp normal respiratory effort Resp Narrative: Coarse breath sounds throughout. Diminished at the bases. Auscultation: Negative for wheezes Cardio regular rate, regular rhythm and no murmurs GI non-tender and non-distended Extremity normal to inspection General Extremety ED: Negative for edema General Extremity: Negative for edema Neuro Sensorium / Orientation: alert and oriented to person Motor Exam: general weakness Psych mental status grossly normal Appearance: unkempt Skin no wounds and skin turgor normal MDM MDM MDM Narrative Medical decision making narrative: Patient evaluated for worsening respiratory status and new hypoxia in the setting of a previously diagnosed pneumonia.Concern for failure of outpatient treatment. Will perform infectious workup at this time and he is currently on 2 L of nasal cannula. Patient stable on 2 L of oxygen in the emergency room. Workup remarkable for mild leukopenia as well as left shift with elevated granulocytes. BMP largely unremarkable. He does have a mildly elevated bicarb likely consistent with a component of chronic respiratory hypercapnia. 1 view chest x-ray viewed by myself as well as radiology does show bilateral pulmonary infiltrates worse in the left. Patient be started on antibiotic Mucor pneumonia especially given that he is likely failed outpatient treatment with doxycycline. He started on Rocephin and azithromycin. In addition staff now informs me that he tested positive for influenza through [facility]. They do not have access to result but states they were just notified today. Result was reviewed through [email or web address] He does have a positive influenza A swab from 2 days ago. Will also be placed on Tamiflu after discussion with hospitalist, Dr. Roberson. Patient mated medical surgical floor for IV antibiotics, breathing treatments and further respiratory monitoring. No plan to escalate care due to patient's CODE STATUS/advanced directives. History & Record Review Discussion w/independent historian: Family Additional record(s) reviewed:: Prior outpatient record (Positive influenza A swab on 09/11) Lab Data Attestation: I reviewed the patient's lab results. Labs: Laboratory Results - last 24 hr 09/13/23 09:10 WBC 3.9 L RBC 4.91 Hgb 14.9 Hct 45.5 MCV 92.7 MCH 30.3 MCHC 32.7 RDW Std Deviation 43.7 RDW Coeff of Carlos 12.8 Plt Count 178 MPV 10.2 Immature Gran % (Auto) 1.000 H Neut % (Auto) 59.3 Lymph % (Auto) 28.5 [place] % (Auto) 8.4 Eos % (Auto) 2.3 Baso % (Auto) 0.5 Absolute Neuts (auto) 2.3 Absolute Lymphs (auto) 1.12 Nucleated RBC % 0 Sodium 142 Potassium 3.8 Chloride 104 Carbon Dioxide 36.0 H Anion Gap 2 L BUN 10 Creatinine 0.81 Estim Creat Clear Calc 112.34 Est GFR (MDRD) Af Amer 126 Est GFR (MDRD) Non-Af 105 BUN/Creatinine Ratio 12.4 Glucose 110 H Lactic Acid 0.6 Calcium 9.4 Radiography Chest X-Ray - ED: 1 View, Read by ED Physician, Read by Radiologist, Right Infiltrate and Left Infiltrate Diagnostic Testing: Clinical Impression(s) from Imaging Studies Chest X-Ray 09/13/23 08:50 IMPRESSION: Bilateral pulmonary infiltrates worse on the left side. Electronically Signed: Nelson Dodd MD at 9:25 EST , Rhythm Strip Rhythm Strip: Sinus Rhythm Rate: 53 Ectopy: None EKG Initial EKG: Attestation: I personally reviewed and interpreted this EKG as follows: Interpretation: Sinus Bradycardia Comments: Sinus bradycardia rate of 53 bpm Normal axis Right bundle branch block Normal ST segments except for T wave version V1 through V3 No significant change compared to prior EKGs Management Discussion w/another healthcare provider: Hospitalist Discharge Plan Triage Chief Complaint: Cough Other Complaint: Shortness of Breath ED Provider: Shira Ashley Dx/Rx/DC Orders Clinical Impression: Influenza A, Failure of outpatient treatment, Hypoxia, Bilateral pneumonia Prescriptions: No Action polyethylene glycol 3350 17 GM powder in packet 17 g PO DAILY clozapine 100 MG tablet 100 mg PO DAILY clozapine 100 MG tablet 200 mg PO QHS fluticasone propionate 1 SPRAY spray,suspension 1 spray NASAL DAILY Systane (PF) 1 EACH dropperette 1 ea OP BID PRN (Reason: eye irritation) docusate sodium 100 mg capsule 200 mg PO BID Patient Comments: TAKE (2) CAPSULES BYCMOUTH TWICE DAILY. doxazosin 4 mg tablet 4 mg PO QHS albuterol sulfate [Ventolin HFA] 90 mcg/actuation HFA aerosol inhaler 2 puff inhalation Q4H PRN PRN (Reason: Wheezing) Qty: 1 0RF Rx Instructions: Dispense with Spacer lacosamide [Vimpat] 50 mg tablet 50 mg PO BID albuterol sulfate 2.5 mg /3 mL (0.083 %) Solution For Nebulization 2.5 mg inhalation Q2H PRN PRN (Reason: Shortness of Breath/Wheezing) Qty: 0 0RF levetiracetam [Keppra] 500 mg Tablet 500 mg PO BID lactulose solution 30 ml clotrimazole 1 % Cream 1 applic TOPICAL BID multivitamin Tablet 1 tab PO DAILY acetaminophen [Acetaminophen Extra Strength] 500 mg Tablet 1,000 mg PO Q6H PRN (Reason: Pain) Primary Care Provider: Abe Moralez Referrals: Abe Moralez MD [Primary Care Provider] - Disposition Disposition: Acute Care Hospital [facility]
--- NOTE | 2023-09-13 08:47 | EKG12_ITS ---
Test Reason : DYSRHYTHMIA Blood Pressure : / mmHG Vent. Rate : 053 BPM Atrial Rate : 053 BPM P-R Int : 160 ms QRS Dur : 142 ms QT Int : 464 ms P-R-T Axes : 026 -06 061 degrees QTc Int : 435 ms Sinus bradycardia Right bundle branch block Abnormal ECG Confirmed by HOUSTON MAYA, STEFFANIE ([id number]), technical writer and editor ELIE PARRA ([id number]) on 09/14/2023 1:34:30 PM Referred By: KULWINDER Confirmed By:STEFFANIE CONRAD MD
--- NOTE | 2023-09-13 08:50 | RAD_ITS ---
STUDY: X-RAY CHEST REASON FOR EXAM: Male, 58 years old. Cough TECHNIQUE: Single AP portable view of the chest. COMPARISON: Comparison is made with prior study April 03, 2022. FINDINGS: EKG electrodes are seen. Bilateral pulmonary infiltrates worse in the left hemithorax. There is no demonstrated pleural abnormality. There is mild cardiac enlargement. Normal mediastinum and rosa. Normal visualized pulmonary arteries. Normal visualized aortic arch and descending thoracic aorta. Normal visualized thoracic spine. Normal visualized ribs, clavicles, and shoulders. There is no demonstrated abnormality of the visualized soft tissue structures of the upper abdomen. RAD/Chest 1 View (Portable) IMPRESSION: Bilateral pulmonary infiltrates worse on the left side. Electronically Signed: Nelson Dodd MD at 9:25 EST ,
[2023-09-13 09:19] LABS: Absolute Lymphocyte Count 1.12 X10^3/uL (0.83-4.51); Absolute Neutrophil Count 2.3 X10^3/uL (2.0-7.7); Basophil# 0.02 X10^3/uL; Basophil% 0.5 % (0-1); Eosinophil# 0.09 X10^3/uL; Eosinophils% 2.3 % (0-5); Hematocrit 45.5 % (40-54); Hemoglobin 14.9 g/dL (13.0-16.5); Lymphocyte # 1.12 X10^3/ul (0.83-4.51); Lymphocyte % 28.5 % (19-41); Mean Corp Hgb Conc 32.7 g/dL (32-36); Mean Corpuscular Hgb 30.3 pg (27.0-32.0); Mean Corpuscular Volume 92.7 fL (80-94); Mean Platelet Vol. 10.2 fl (6.2-12.0); Monocyte# 0.33 X10^3/uL; Monocyte% 8.4 % (0-10); NRBC Flagged by Analyzer 0 % (0-5); Neutrophil # 2.33 X10^3/uL (2.7-7.7); Neutrophil % 59.3 % (47-70); Platelet Count 178 K/mm3 (150-450); RBC Distribution Width CV 12.8 % (11.6-14.6); RBC Distribution Width SD 43.7 fl (35.1-43.9); Red Blood Count 4.91 M/mm3 (4.6-6.2); White Blood Count 3.9 K/mm3 (4.4-11.0)
[2023-09-13] MEDS: Ipratropium/Albuterol Sulfate 3 ML AMPUL.NEB INHALATION ×2 (09:20→20:22)
[2023-09-13 09:32] LABS: Anion Gap 2 (5-15); BUN 10 mg/dL (7-18); BUN/Creat Ratio 12.4 RATIO (10-20); Calcium,Total 9.4 mg/dL (8.5-10.1); Chloride 104 mmol/L (98-107); Creatinine, Serum 0.81 mg/dL (0.70-1.30); EST Glomerular Filtration Rate 105 mL/min (>60); Est Glom Filt Rate - Afr Amer 126 mL/min (>60); Estimated Creatinine Clearance 112.34 ml/min; Glucose 110 mg/dL (74-106); Potassium 3.8 mmol/L (3.5-5.1); Sodium Level 142 mmol/L (136-145)
[2023-09-13 09:43] LABS: Lactic Acid 0.6 mmol/L (0.4-1.9)
--- NOTE | 2023-09-13 10:47 | HP.PCM.HOS_ITS ---
HPI - General General Date of Admission: 09/13/23 Date of Service: 09/13/23 Chief Complaint: Shortness of breath, cough concern for pneumonia HPI Narrative MORE SALAZAR, is a 58 M MRDD from residential was brought by EMS for shortness of breath hypoxia and cough. Apparently, was diagnosed with pneumonia about 7 days ago and went to the seventh day of doxycycline. Prior to that he had pneumonia in January 2023 and was treated with amoxicillin/clavulanate. Patient was found to be hypoxic 85% on room air, cough, congestion could not get the phlegm out. Patient was put on 4 L of oxygen, pulse ox 95% and brought to ED. Patient also looks short of breath in ED. Patient can communicate basic things like how he is feeling and want to be short of breath on communication. He is on wheelchair-bound and needs 2 people assist. Patient is accompanied by residential nurse. ED physician talked to patient's POA his father Mr. Jimi Espinoza and confirmed that he is DNR CC and okay with conservative approach with IV antibiotics but does not want aggressive measures like BiPAP or CPAP or ventilator. Patient is DNR CC. Chest x-ray done in ED initially read shows bilateral lower lobe infiltrates. Vitals labs and EKG reviewed and discussed in assessment and plan. [facility] Medical History Abrasion of hip, right Autism Cellulitis of right upper extremity Cognitive impairment Constipation Impulse control disorder Non-smoker Seizure disorder Seizures Skin ulcer of right hip with fat layer exposed Home Medications clozapine 100 mg tablet 100 mg PO DAILY anxiety 07/24/16 [History Last Taken 04/03/22] clozapine 100 mg tablet 200 mg PO QHS anxiety 07/24/16 [History Last Taken 07/15] fluticasone propionate 50 mcg/actuation nasal spray,suspension 1 spray DAILY allergies 07/24/16 [History Last Taken 04/03/22] docusate sodium 100 mg capsule 200 mg PO BID constipation 02/10/22 [History Last Taken 04/03/22] doxazosin 4 mg tablet 4 mg PO QHS htn 02/10/22 [History Last Taken 04/02/22] albuterol sulfate 90 mcg/actuation aerosol inhaler (Ventolin HFA) 2 puff inhalation Q4H PRN PRN Wheezing ##1 03/14/22 [Rx Last Taken 04/02/22] lacosamide 50 mg tablet (Vimpat) 50 mg PO BID . 04/03/22 [History Last Taken 04/03/22] albuterol sulfate 2.5 mg/3 mL (0.083 %) solution for nebulization 2.5 mg (3 mL) inhalation Q2H PRN PRN Shortness of Breath/Wheezing #0 mL 04/05/22 [Rx Last Taken Unknown] levetiracetam 500 mg tablet (Keppra) 500 mg PO BID 01/26/23 [History Last Taken Unknown] acetaminophen 500 mg tablet (Acetaminophen Extra Strength) 1,000 mg PO Q6H PRN Pain 03/08/23 [History Last Taken Unknown] multivitamin 1 tab PO DAILY 03/08/23 [History Last Taken Unknown] bacitracin 500 unit/gram topical ointment 1 applic topical Q12H 09/13/23 [History Last Taken 09/12/23] peg 400-propylene glycol (PF) 0.4 %-0.3 % eye drops in a dropperette (Systane (PF)) 1 drp EACH EYE DAILY PRN dry eyes 09/13/23 [History Last Taken Unknown] Allergy/AdvReac Type Severity Reaction Status Date / Time No Known Allergies Allergy Verified 09/13/23 08:16 Family History Mother Seizures COPD (chronic obstructive pulmonary disease) Father Glaucoma Surgical History History of lingual frenulectomy History of rectal surgery Social History housing: other details: jail. Smoking Status: Never smoker alcohol intake: never substance use type: does not use ROS ROS Narrative 14 system ROS unobtainable mainly due to MRDD limited understanding and communication. Patient is also short of breath. From the nurse from the residential No fever. Chest congestion Patient is on diaper mainly because not able to get quickly to the bathroom being on the wheelchair and needs 2 people assist. No abdominal pain. Has history of seizure on antiseizure medications. Review of Systems ROS Unobtainable: due to mental condition and due to mental status Vital Signs Vital Signs Vital Signs: 09/13/23 08:17 09/13/23 08:22 09/13/23 08:22 Temperature 97.8 F 97.9 F Temperature Source Oral Oral Pulse Rate 60 60 Respiratory Rate 17 22 H Respiratory Effort Respiratory Depth Respiratory Pattern Blood Pressure 132/89 H 132/89 H Blood Pressure Mean 103 103 Pulse Ox 89 95 95 Oxygen Delivery Method Room Air Nasal Cannula Nasal Cannula Oxygen Flow Rate (L/min) 2 2 09/13/23 08:26 09/13/23 09:17 09/13/23 09:21 Temperature Temperature Source Pulse Rate 57 L Respiratory Rate 20 H Respiratory Effort Normal Non-Labored Respiratory Depth Normal Respiratory Pattern Tachypnea Normal Blood Pressure Blood Pressure Mean Pulse Ox Oxygen Delivery Method Nasal Cannula Nasal Cannula Oxygen Flow Rate (L/min) 2 2 09/13/23 10:32 Temperature 98 F Temperature Source Oral Pulse Rate 52 L Respiratory Rate 18 Respiratory Effort Respiratory Depth Respiratory Pattern Blood Pressure 157/89 H Blood Pressure Mean 111 Pulse Ox 98 Oxygen Delivery Method Nasal Cannula Oxygen Flow Rate (L/min) 2 Weight Weight: 207 lb 3.752 oz Body Mass Index (BMI) 27.3 Physical Exam Narrative General: Awake, baseline orientation to place and person. Cooperative HEENT: Atraumatic, PERRLA, EOMI, Normocephalic Oral: Deep oropharynx could not be visualized. Neck: Supple, No JVD, Negative Carotid Bruits Lungs: Air entry diminished in bilateral lung bases. Bilateral coarse crepitations and wheezings. Hypoxia Cardiovascular: Sinus bradycardia. Normal S1, Normal S2, No murmurs Abdomen: Bowel Sounds Present, Soft, Non Tender, Non-Distended : No renal angle tenderness. No suprapubic tenderness. Extremities: No edema, Capillary Refill Less than 3 Seconds Skin: No rashes, No breakdown Musculoskeletal: On wheelchair. Not ambulatory. Needs 2 people assist. ROM limited at hips and knee joints. Neurological: History of seizure. Motor and sensory exam could not be evaluated as patient is not consistent on exam. Patient does not follow commands. No acute focal neurological deficit. Psych/Mental Status: Flat affect, MRDD. Results Lab / Micro Data 09/13/23 09:10 09/13/23 09:10 Labs: Laboratory Results - last 24 hr 09/13/23 09:10: WBC 3.9 L, RBC 4.91, Hgb 14.9, Hct 45.5, MCV 92.7, MCH 30.3, M CHC 32.7, RDW Std Deviation 43.7, RDW Coeff of Carlos 12.8, Plt Count 178, MPV 10.2, Immature Gran % (Auto) 1.000 H, Neut % (Auto) 59.3, Lymph % (Auto) 28.5, [place] % (Auto) 8.4, Eos % (Auto) 2.3, Baso % (Auto) 0.5, Absolute Neuts (auto) 2.3, Absolute Lymphs (auto) 1.12, Nucleated RBC % 0, Sodium 142, Potassium 3.8, Chloride 104, Carbon Dioxide 36.0 H, Anion Gap 2 L, BUN 10, Creatinine 0.81, Estim Creat Clear Calc 112.34, Est GFR (MDRD) Af Amer 126, Est GFR (MDRD) Non-Af 105, BUN/Creatinine Ratio 12.4, Glucose 110 H, Lactic Acid 0.6, Calcium 9.4 Micro: Microbiology 09/13/23 09:10 Nasal Secretion SARS-CoV-2 & FLU Antigen (Rapid) - Final Rhythm Strip Rhythm Strip: Sinus Rhythm Rate: 53 Ectopy: None Imagaing Radiology Impression Chest X-Ray 09/13/23 08:50 IMPRESSION: Bilateral pulmonary infiltrates worse on the left side. Electronically Signed: Nelson Dodd MD at 9:25 EST , Assessment & Plan Assessment/Plan (1) Bilateral pneumonia: (2) Influenza A: PLAN: Plan This 58-year-old gentleman being admitted from residential for shortness of breath worsening, cough and hypoxia for about 1 week positional bilateral pne umonia. 1. Mild hypoxia due to bilateral lower lobe pneumonia exact etiology most likely bacterial secondary infection on influenza A pneumonia: Patient is being admitted to MedSurg floor. Started on IV ceftriaxone and Zithromax in ED and discontinued. On IV fluid 75 mill per hour. Mild leukopenia. Anion gap 2. Pneumonia workup including respiratory panel and COVID-19 PCR ordered. Outside influenza A PCR positive and started on Tamiflu 75 mg twice daily. Bronchodilator DuoNeb every 6 hourly with albuterol as needed. Incentive spirometry, PEP and Mucinex DM. 2. Mild MRDD: Supportive care. Patient is on clozapine continued. 3.? Seizure disorder: Patient's antiepileptic medications continued. 4.? Recurrent constipation on senna S. 5.? DVT prophylaxis - On enoxaparin Living will/advanced directive/end of life care: Patient does have living will or advanced directive. His father is power of spring intern for health. After discussion of benefits/risks procedures involved with full code, DNR CC arrest and DNR CC of ED physician with patient's POA patient is DNR CC. Okay with the conservative management with IV antibiotics and fluid. No BiPAP or CPAP. Patient's father does not want him to suffer. Patient doesn't want artificial life support including intubation, tube feed, ventilator and/chest compression, central venous catheter, vasopressor and DC shock if needed Total time spent in [id number] encounter in discussion of advanced directive 17 minutes. Microbiology Past 72 Hours 09/13/23 09:10 Nasal Secretion SARS-CoV-2 & FLU Antigen (Rapid) - Final Laboratory Results 09/13/23 09:10: WBC 3.9 L, RBC 4.91, Hgb 14.9, Hct 45.5, MCV 92.7, MCH 30.3, MCHC 32.7, RDW Std Deviation 43.7, RDW Coeff of Carlos 12.8, Plt Count 178, MPV 10.2, Immature Gran % (Auto) 1.000 H, Neut % (Auto) 59.3, Lymph % (Auto) 28.5, [place] % (Auto) 8.4, Eos % (Auto) 2.3, Baso % (Auto) 0.5, Absolute Neuts (auto) 2.3, Absolute Lymphs (auto) 1.12, Nucleated RBC % 0, Sodium 142, Potassium 3.8, Chloride 104, Carbon Dioxide 36.0 H, Anion Gap 2 L, BUN 10, Creatinine 0.81, Estim Creat Clear Calc 112.34, Est GFR (MDRD) Af Amer 126, Est GFR (MDRD) Non-Af 105, BUN/Creatinine Ratio 12.4, Glucose 110 H, Lactic Acid 0.6, Calcium 9.4 Charges/Coding Visit Charges Inpatient E&M: 04768 Init Hosp L3 Procedures Hospitalists Procedures: 17538 Advncd Care Plan 30 Min
[2023-09-13] MEDS: Ceftriaxone 2 GM in 0.9% Normal Saline (50mL MB+) 50 ML IV (11:08)
[2023-09-13] MEDS: Azithromycin 500 MG in Dextrose 5%-Water (250mL Bag) 250 ML 250 MG IV (12:10)
[2023-09-13] MEDS: Oseltamivir Phosphate 75 MG Capsule PO (12:10)
[2023-09-13] MEDS: 0.45% Normal Saline 1,000 ML 75 ML IV (15:11)
[2023-09-13] MEDS: Enoxaparin 40 MG/0.4 ML Syringe SC (15:11)
[2023-09-13] MEDS: guaiFENesin/D-Methorphan TAB.SR.12H 2 TABLET PO ×2 (15:11→22:44)
[2023-09-13] MEDS: levETIRAcetam 500 MG Tablet PO ×2 (15:12→22:45)
[2023-09-13] MEDS: 0.9% Saline Lock 10 ML Syringe IV ×2 (15:13→22:44)
[2023-09-13] MEDS: Fluticasone 0.05% 1 SPRAY NASAL.SRY NASAL (17:07)
[2023-09-13 18:40] LABS: M R Staph aureus DNA By PCR Negative (Negative); Probe Check PASS; Specimen Processing Control PASS
--- NOTE | 2023-09-13 19:08 | NURSING ---
DR LE AWARE THAT PT IS RSVA +
[2023-09-13] MEDS: Ondansetron 4 MG/2 ML Vial IV (22:44)
[2023-09-13] MEDS: Menthol/Lanolin/Calamine/Znox 113 GM Tube 1 APPLIC TOPICAL (22:44)
[2023-09-13] MEDS: Acetaminophen 500 MG Tablet 1000 MG PO (22:45)
[2023-09-13] MEDS: cloZAPine 100 MG TABLET 200 MG PO (22:45)
[2023-09-13] MEDS: Doxazosin 4 MG Tablet PO (22:45)
[2023-09-13] MEDS: Senna/Docusate Sodium 1 Tablet 2 TABLET PO (22:46)
[2023-09-13] MEDS: Lacosamide 50 MG Tablet PO (22:53)
[2023-09-13] MEDS: Miconazole Nitrate 43 GM Bottle 1 APPLIC TOPICAL (23:27)
[2023-09-14] VITALS (8 sets, daily range): BP systolic 135–161; BP diastolic 82–95; PULSE 49–70; RESP 16–26; TEMP 36.1–37; O2SAT 94–99
[2023-09-14] MEDS: 0.45% Normal Saline 1,000 ML 75 ML IV (03:53)
[2023-09-14] MEDS: Bacitracin 500 UNITS/GM PACKET TOPICAL ×2 (03:53→17:13)
[2023-09-14 05:39] LABS: Absolute Lymphocyte Count 1.45 X10^3/uL (0.83-4.51); Basophil# 0.03 X10^3/uL; Basophil% 0.7 % (0-1); Eosinophil# 0.09 X10^3/uL; Eosinophils% 2.2 % (0-5); Hematocrit 41.6 % (40-54); Hemoglobin 13.3 g/dL (13.0-16.5); Lymphocyte # 1.45 X10^3/ul (0.83-4.51); Lymphocyte % 35.2 % (19-41); Mean Corpuscular Hgb 29.4 pg (27.0-32.0); Mean Platelet Vol. 10.6 fl (6.2-12.0); Monocyte% 12.1 % (0-10); NRBC Flagged by Analyzer 0 % (0-5); Neutrophil % 48.6 % (47-70); Platelet Count 174 K/mm3 (150-450); RBC Distribution Width CV 12.6 % (11.6-14.6); RBC Distribution Width SD 42.5 fl (35.1-43.9); Red Blood Count 4.52 M/mm3 (4.6-6.2); White Blood Count 4.1 K/mm3 (4.4-11.0)
[2023-09-14 06:09] LABS: Anion Gap 2 (5-15); BUN 8 mg/dL (7-18); BUN/Creat Ratio 14.5 RATIO (10-20); Calcium,Total 8.6 mg/dL (8.5-10.1); Chloride 107 mmol/L (98-107); Creatinine, Serum 0.55 mg/dL (0.70-1.30); EST Glomerular Filtration Rate 161 mL/min (>60); Est Glom Filt Rate - Afr Amer 195 mL/min (>60); Estimated Creatinine Clearance 165.45 ml/min; Glucose 101 mg/dL (74-106); Potassium 4.2 mmol/L (3.5-5.1); Sodium Level 142 mmol/L (136-145)
[2023-09-14] MEDS: Ipratropium/Albuterol Sulfate 3 ML AMPUL.NEB INHALATION ×3 (09:04→19:30)
[2023-09-14] MEDS: Ceftriaxone 2 GM in 0.9% Normal Saline (50mL MB+) 50 ML IV (10:24)
[2023-09-14] MEDS: cloZAPine 100 MG TABLET PO (10:24)
[2023-09-14] MEDS: Enoxaparin 40 MG/0.4 ML Syringe SC (10:24)
[2023-09-14] MEDS: guaiFENesin/D-Methorphan TAB.SR.12H 2 TABLET PO ×2 (10:24→22:11)
[2023-09-14] MEDS: levETIRAcetam 500 MG Tablet PO ×2 (10:25→22:11)
[2023-09-14] MEDS: Fluticasone 0.05% 1 SPRAY NASAL.SRY NASAL (10:25)
[2023-09-14] MEDS: Senna/Docusate Sodium 1 Tablet 2 TABLET PO ×2 (10:25→22:12)
[2023-09-14] MEDS: Lacosamide 50 MG Tablet PO ×2 (10:25→22:12)
[2023-09-14] MEDS: Multivitamins,Therapeutic Tablet 1 TABLET PO (10:25)
[2023-09-14] MEDS: Menthol/Lanolin/Calamine/Znox 113 GM Tube 1 APPLIC TOPICAL ×2 (10:27→22:10)
[2023-09-14] MEDS: Miconazole Nitrate 43 GM Bottle 1 APPLIC TOPICAL ×2 (10:27→22:10)
[2023-09-14] MEDS: Azithromycin 500 MG in Dextrose 5%-Water (250mL Bag) 250 ML 250 MG IV (10:27)
--- NOTE | 2023-09-14 11:12 | PN.HOSP_ITS ---
Reason for Visit Reason for Visit: Diagnoses Influenza due to other identified influenza virus with other respiratory manife stations (09/13/23) Pneumonia, unspecified organism (09/13/23) Objective Data Objective Data Vital Signs: Vital Signs Temp Pulse Resp BP Pulse Ox O2 Del Method O2 Flow Rate 97.9 F 70 20 H 144/95 H 99 Nasal Cannula 2 09/14/23 10:00 09/14/23 10:00 09/14/23 10:00 09/14/23 10:00 09/14/23 10:00 09/14/23 10:00 09/14/23 10:00 Oxygen Flow Rate (L/min) 2 Oxygen Delivery Method Nasal Cannula Weight: 207 lb 3.752 oz Body Mass Index (BMI) 27.3 Intake & Output: Intake and Output for Last 24 Hours 09/12/23 09/13/23 09/14/23 23:59 23:59 23:59 Intake Total 405 / 405 1450.42 / 1450.42 Output Total 300 / 300 400 / 400 Balance 105 / 105 1050.42 / 1050.42 Lab / Micro Data 09/14/23 04:55 09/14/23 04:55 Labs: Laboratory Results - last 24 hr 09/13/23 15:00: MRSA (PCR) Negative 09/14/23 04:55: WBC 4.1 L, RBC 4.52 L, Hgb 13.3, Hct 41.6, MCV 92.0, MCH 29.4, MCHC 32.0, RDW Std Deviation 42.5, RDW Coeff of Carlos 12.6, Plt Count 174, MPV 10.6, Immature Gran % (Auto) 1.200 H, Neut % (Auto) 48.6, Lymph % (Auto) 35.2, [place] % (Auto) 12.1 H, Eos % (Auto) 2.2, Baso % (Auto) 0.7, Absolute Neuts (auto) 2.0, Absolute Lymphs (auto) 1.45, Nucleated RBC % 0, Sodium 142, Potassium 4.2, Chloride 107, Carbon Dioxide 33.0 H, Anion Gap 2 L, BUN 8, Creatinine 0.55 L, Estim Creat Clear Calc 165.45, Est GFR (MDRD) Af Amer 195, Est GFR (MDRD) Non-Af 161, BUN/Creatinine Ratio 14.5, Glucose 101, Calcium 8.6 Micro: Microbiology 09/13/23 10:10 Blood Culture (Wb) - Anticubital Left Bacteria Detection (PCR) - Final Coag Negative Staph 09/13/23 10:10 Blood Culture (Wb) - Anticubital Right Blood Culture - Preliminary 09/13/23 12:19 Mucosa - Nose Respiratory Panel (PCR) - Final RSV A 09/13/23 14:25 Urine, Random Legionella Antigen - Final 09/13/23 14:25 Urine, Random Streptococcus pneumoniae Antigen (M - Final 09/13/23 12:19 Mucosa - Nasopharyngeal Coronavirus COVID-19 PCR - Final 09/13/23 09:10 Nasal Secretion SARS-CoV-2 & FLU Antigen (Rapid) - Final Rhythm Strip Rhythm Strip: Sinus Rhythm Rate: 53 Ectopy: None Physical Exam Narrative Seen and examined. Patient does not have fever. Shortness of breath so-called better but patient history is circumferential and responses limited because of limited understand ing General: Awake, baseline orientation to place and person. Cooperative HEENT: Atraumatic, PERRLA, EOMI, Normocephalic Oral: Deep oropharynx could not be visualized. Neck: Supple, No JVD, Negative Carotid Bruits Lungs: Air entry diminished in bilateral lung bases. Bilateral coarse crepitat ionS. 99% on 2 L of oxygen Cardiovascular: Sinus bradycardia. Normal S1, Normal S2, No murmurs Abdomen: Bowel Sounds Present, Soft, Non Tender, Non-Distended : No renal angle tenderness. No suprapubic tenderness. Extremities: No edema, Capillary Refill Less than 3 Seconds Skin: No rashes, No breakdown Musculoskeletal: On wheelchair. Not ambulatory. Needs 2 people assist. ROM limited at hips and knee joints. Neurological: History of seizure. Motor and sensory exam could not be evaluated as patient is not consistent on exam. Patient does not follow commands. No acute focal neurological deficit. Psych/Mental Status: Flat affect, MRDD. Assessment & Plan Assessment/Plan (1) Bilateral pneumonia: (2) Influenza A: PLAN: Plan This 58-year-old gentleman being admitted from long-term for shortness of breath worsening, cough and hypoxia for about 1 week positional bilateral pneumonia. 1. Mild hypoxia due to bilateral lower lobe pneumonia exact etiology most likely bacterial secondary infection on influenza A pneumonia: Patient is being admitted to MedSur floor. Started on IV ceftriaxone and Zithromax in ED and discontinued. On IV fluid 75 mill per hour. Mild leukopenia. Anion gap 2. Pneumonia workup including respiratory panel and COVID-19 PCR ordered. Outside influenza A PCR positive and started on Tamiflu 75 mg twice daily. Bronchodilator DuoNeb every 6 hourly with albuterol as needed. Incentive spirometry, PEP and Mucinex DM. 09/14: Respiratory panel is positive for RSV?A. Blood culture positive for staph most likely contamination [employer]IST on bacterial detection. Continue IV ceftriaxone. IV Zithromax changed to oral to avoid extra IV fluid. Discontinue IV fluid 2. Mild MRDD: Supportive care. Patient is on clozapine continued. 3.? Seizure disorder: Patient's antiepileptic medications continued. 4.? Recurrent constipation on senna S. 5.? DVT prophylaxis - On enoxaparin Living will/advanced directive/end of life care: Patient does have living will or advanced directive. His father is power of stock turner for health. After discussion of benefits/risks procedures involved with full code, DNR CC arrest and DNR CC of ED physician with patient's POA patient is DNR CC. Okay with the conservative management with IV antibiotics and fluid. No BiPAP or CPAP. Patient's father does not want him to suffer. Patient doesn't want artificial life support including intubation, tube feed, ventilator and/chest compression, central venous catheter, vasopressor and DC shock if needed Total time spent in [id number] encounter in discussion of advanced directive 17 minutes. Microbiology Past 72 Hours 09/13/23 10:10 Blood Culture (Wb) - Anticubital Left Bacteria Detection (PCR) - Final Coag Negative Staph 09/13/23 10:10 Blood Culture (Wb) - Anticubital Right Blood Culture - Prel iminary 09/13/23 12:19 Mucosa - Nose Respiratory Panel (PCR) - Final RSV A 09/13/23 14:25 Urine, Random Legionella Antigen - Final 09/13/23 14:25 Urine, Random Streptococcus pneumoniae Antigen (M - Final 09/13/23 12:19 Mucosa - Nasopharyngeal Coronavirus COVID-19 PCR - Final 09/13/23 09:10 Nasal Secretion SARS-CoV-2 & FLU Antigen (Rapid) - Final Laboratory Results 09/13/23 15:00: MRSA (PCR) Negative 09/14/23 04:55: WBC 4.1 L, RBC 4.52 L, Hgb 13.3, Hct 41.6, MCV 92.0, MCH 29.4, MCHC 32.0, RDW Std Deviation 42.5, RDW Coeff of Carlos 12.6, Plt Count 174, MPV 10.6, Immature Gran % (Auto) 1.200 H, Neut % (Auto) 48.6, Lymph % (Auto) 35.2, [place] % (Auto) 12.1 H, Eos % (Auto) 2.2, Baso % (Auto) 0.7, Absolute Neuts (auto) 2.0, Absolute Lymphs (auto) 1.45, Nucleated RBC % 0, Sodium 142, Potassium 4.2, Chloride 107, Carbon Dioxide 33.0 H, Anion Gap 2 L, BUN 8, Creatinine 0.55 L, Estim Creat Clear Calc 165.45, Est GFR (MDRD) Af Amer 195, Est GFR (MDRD) Non-Af 161, BUN/Creatinine Ratio 14.5, Glucose 101, Calcium 8.6 Clinical Impression(s) from Imaging Studies Chest X-Ray 09/13/23 08:50 IMPRESSION: Bilateral pulmonary infiltrates worse on the left side. Electronically Signed: Nelson Dodd MD at 9:25 EST , Charges/Coding Visit Charges Inpatient E&M: 32361 Subs Hosp L2
--- NOTE | 2023-09-14 16:40 | CASEMGMT ---
Social Work Pt's parents Tati Crawford are pt's legal guardians. Document printed from EMR and placed on pt chart. SHAYAN Sanford
--- NOTE | 2023-09-14 16:42 | CASEMGMT ---
Social Work Pt is admitted from a correction. SW spoke with Juliet Alva, nurse at the home and she confirms pt is able to return when medically ready. If pt needs home oxygen, this can be accomodated but will need to be set up as he currently does not have this service. longterm will transport pt back to the facility. If pt is discharged over the weekend, Jill from the Home is to be contacted for transort [phone]. SHAYAN Sanford
[2023-09-14] MEDS: Doxazosin 4 MG Tablet PO (22:12)
[2023-09-14] MEDS: cloZAPine 100 MG TABLET 200 MG PO (22:12)
[2023-09-15] VITALS (9 sets, daily range): BP systolic 137–159; BP diastolic 80–87; PULSE 46–60; RESP 14–24; TEMP 36.6–36.8; O2SAT 90–95
[2023-09-15] MEDS: Bacitracin 500 UNITS/GM PACKET TOPICAL ×2 (04:00→16:43)
[2023-09-15] MEDS: Ipratropium/Albuterol Sulfate 3 ML AMPUL.NEB INHALATION ×3 (07:10→20:05)
[2023-09-15 07:32] LABS: Absolute Lymphocyte Count 1.11 X10^3/uL (0.83-4.51); Absolute Neutrophil Count 3.2 X10^3/uL (2.0-7.7); Basophil# 0.02 X10^3/uL; Basophil% 0.4 % (0-1); Eosinophil# 0.08 X10^3/uL; Eosinophils% 1.6 % (0-5); Hematocrit 42.4 % (40-54); Hemoglobin 13.8 g/dL (13.0-16.5); Lymphocyte # 1.11 X10^3/ul (0.83-4.51); Lymphocyte % 22.5 % (19-41); Mean Corp Hgb Conc 32.5 g/dL (32-36); Mean Corpuscular Hgb 29.4 pg (27.0-32.0); Mean Corpuscular Volume 90.4 fL (80-94); Mean Platelet Vol. 10.5 fl (6.2-12.0); Monocyte# 0.47 X10^3/uL; Monocyte% 9.5 % (0-10); NRBC Flagged by Analyzer 0 % (0-5); Neutrophil # 3.23 X10^3/uL (2.7-7.7); Neutrophil % 65.4 % (47-70); Platelet Count 197 K/mm3 (150-450); RBC Distribution Width CV 12.7 % (11.6-14.6); RBC Distribution Width SD 41.6 fl (35.1-43.9); Red Blood Count 4.69 M/mm3 (4.6-6.2); White Blood Count 4.9 K/mm3 (4.4-11.0)
[2023-09-15 07:44] LABS: Anion Gap 2 (5-15); BUN 11 mg/dL (7-18); BUN/Creat Ratio 15.6 RATIO (10-20); Calcium,Total 9.4 mg/dL (8.5-10.1); Chloride 104 mmol/L (98-107); EST Glomerular Filtration Rate 122 mL/min (>60); Est Glom Filt Rate - Afr Amer 148 mL/min (>60); Glucose 109 mg/dL (74-106); Potassium 3.8 mmol/L (3.5-5.1); Sodium Level 139 mmol/L (136-145)
[2023-09-15] MEDS: Azithromycin 250 MG Tablet 500 MG PO (09:00)
[2023-09-15] MEDS: Miconazole Nitrate 43 GM Bottle 1 APPLIC TOPICAL (09:01)
[2023-09-15] MEDS: guaiFENesin/D-Methorphan TAB.SR.12H 2 TABLET PO (09:01)
[2023-09-15] MEDS: cloZAPine 100 MG TABLET PO (09:01)
[2023-09-15] MEDS: Menthol/Lanolin/Calamine/Znox 113 GM Tube 1 APPLIC TOPICAL (09:02)
[2023-09-15] MEDS: Lacosamide 50 MG Tablet PO (09:03)
[2023-09-15] MEDS: Enoxaparin 40 MG/0.4 ML Syringe SC (09:03)
[2023-09-15] MEDS: levETIRAcetam 500 MG Tablet PO (09:03)
[2023-09-15] MEDS: Senna/Docusate Sodium 1 Tablet 2 TABLET PO (09:03)
[2023-09-15] MEDS: Ensure Clear 120 ML Liquid PO ×3 (09:04→16:44)
[2023-09-15] MEDS: Fluticasone 0.05% 1 SPRAY NASAL.SRY NASAL (09:15)
[2023-09-15] MEDS: Multivitamins,Therapeutic Tablet 1 TABLET PO (09:15)
[2023-09-15] MEDS: 0.9% Saline Lock 10 ML Syringe IV (09:16)
--- NOTE | 2023-09-15 11:32 | DCINST_ITS ---
Discharge Instructions Diet Discharge Diet: Low fat / Low cholesterol Activity Discharge Activity: Return to Normal Activity Weight Bearing Status: Weight bearing as tolerated Dressing / Incision Call your doctor if you observe: Fever of 101 or Higher, Shortness of breath, Dizziness, Swelling in the ankles, Chest pain and Increased palpitations (irregular heartbeat) Follow Up Care Test Results: Test results from this visit will be discussed in further detail at your follow- up appointment, if applicable. Discharge Plan Admission Admit Date/Time: 09/13/23 10:48 Primary Reason for Your Visit: post viral pneumonia Attending Provider: Beronica Ledezma Primary Care Provider: Abe Moralez Consulting Providers: Naresh Roberson Instructions Patient Instructions: ED Pneumonia (Adult) Discharge Orders/Prescriptions Prescriptions: New doxycycline hyclate 100 mg tablet 100 mg PO BID Qty: 10 0RF Continued clozapine 100 MG tablet 100 mg PO DAILY clozapine 100 MG tablet 200 mg PO QHS fluticasone propionate 1 SPRAY spray,suspension 1 spray NASAL DAILY docusate sodium 100 mg capsule 200 mg PO BID Patient Comments: TAKE (2) CAPSULES BYCMOUTH TWICE DAILY. doxazosin 4 mg tablet 4 mg PO QHS albuterol sulfate [Ventolin HFA] 90 mcg/actuation HFA aerosol inhaler 2 puff inhalation Q4H PRN PRN (Reason: Wheezing) Qty: 1 0RF Rx Instructions: Dispense with Spacer lacosamide [Vimpat] 50 mg tablet 50 mg PO BID albuterol sulfate 2.5 mg /3 mL (0.083 %) Solution For Nebulization 2.5 mg inhalation Q2H PRN PRN (Reason: Shortness of Breath/Wheezing) Qty: 0 0RF levetiracetam [Keppra] 500 mg Tablet 500 mg PO BID multivitamin Tablet 1 tab PO DAILY acetaminophen [Acetaminophen Extra Strength] 500 mg Tablet 1,000 mg PO Q6H PRN (Reason: Pain) bacitracin 500 unit/gram ointment 1 applic TOPICAL Q12H Systane (PF) 0.4-0.3 % dropperette 1 drp EACH EYE DAILY PRN (Reason: dry eyes) Referrals / Follow Up: Abe Moralez MD [Primary Care Provider] - Within 1 Week Disposition Disposition (needs filled in before D/C Order can be placed): [facility]illed [facility]
[2023-09-15] MEDS: Doxycycline 100 MG CAPSULE PO (12:02)
--- NOTE | 2023-09-15 12:07 | NURSING ---
Father Jimi updated on discharge. left for Jill at [facility] to attempt to arrange transport.
--- NOTE | 2023-09-15 12:11 | NURSING ---
talked with Jill from [facility] regarding Dc planning. aware she is unsure when she will be able to have transportation available for patient but states will make some phone calls and will give us a call when she has it planned.
--- NOTE | 2023-09-15 14:07 | PCM.DC.SUM ---
Providers Date of Admission: 09/13/23 Date of Discharge: 09/15/23 Primary Care Physician: Dr. Abe Moralez MD Reason For Visit: B/L PNEUMONIA Diagnosis Discharge Diagnosis (1) Bilateral pneumonia: Status: Acute Code(s): J18.9 - Pneumonia, unspecified organism (2) Influenza A: Status: Acute Code(s): J10.1 - Influenza due to other identified influenza virus with other respiratory manifestations Medications at Discharge Home Medications clozapine 100 mg tablet 100 mg PO DAILY anxiety 07/24/16 clozapine 100 mg tablet 200 mg PO QHS anxiety 07/24/16 fluticasone propionate 50 mcg/actuation nasal spray,suspension 1 spray DAILY allergies 07/24/16 docusate sodium 100 mg capsule 200 mg PO BID constipation 02/10/22 doxazosin 4 mg tablet 4 mg PO QHS htn 02/10/22 albuterol sulfate 90 mcg/actuation aerosol inhaler (Ventolin HFA) 2 puff inhalation Q4H PRN PRN Wheezing ##1 03/14/22 lacosamide 50 mg tablet (Vimpat) 50 mg PO BID . 04/03/22 albuterol sulfate 2.5 mg/3 mL (0.083 %) solution for nebulization 2.5 mg (3 mL) inhalation Q2H PRN PRN Shortness of Breath/Wheezing #0 mL 04/05/22 levetiracetam 500 mg tablet (Keppra) 500 mg PO BID 01/26/23 acetaminophen 500 mg tablet (Acetaminophen Extra Strength) 1,000 mg PO Q6H PRN Pain 03/08/23 multivitamin 1 tab PO DAILY 03/08/23 bacitracin 500 unit/gram topical ointment 1 applic topical Q12H 09/13/23 peg 400-propylene glycol (PF) 0.4 %-0.3 % eye drops in a dropperette (Systane (PF)) 1 drp EACH EYE DAILY PRN dry eyes 09/13/23 doxycycline hyclate 100 mg tablet 100 mg PO BID #10 tabs 09/15/23 oseltamivir 75 mg capsule (Tamiflu) 75 mg PO BID 5 days #10 caps 09/15/23 Hospital Course Operations None Procedures None Summary of Care Provided Minutes Spent on Discharge: 45 Hospital Course: Patient is a 58-year-old patient with MRDD, resident in a intermediate. He was admitted through the ED on 09/13/2023 with a complaint of shortness of breath, cough and hypoxia. He had been diagnosed with pneumonia about 7 days prior to admission and had been placed on a course of p.o. doxycycline. On admission he was hypoxic at 85% on room air was congested. He was also visibly short of breath. He was placed on 4 L of oxygen. Chest x-ray done showed evidence of bilateral lower lobe infiltrates. He was admitted and managed for hypoxia due to bilateral lower lobe pneumonia. He also tested positive for influenza A. He was started on ceftriaxone and azithromycin. He was hydrated with IV fluids. He was also started on Tamiflu. Patient was weaned off of oxygen. He felt much better. He remained stable and was discharged home on 09/15/2023. Patient's pulse ox checked on room air showed that he did not require any home oxygen. He was placed on a 5-day course of p.o. doxycycline. He was also given a course of Tamiflu. He is follow-up with his primary care doctor within 1 to 2 weeks. Patient seen and examined prior to discharge. He had no active complaints and had an uneventful night. Review of symptoms otherwise negative. Labs and vitals reviewed. Home medication reviewed and reconciled. Physical Exam Const alert, no apparent distress and average body habitus General Appearance: cooperative, comfortable and well kempt Orientation / Consciousness: awake Exam Limitations: no limitations HEENT normocephalic, head/scalp atraumatic, hearing grossly normal bilaterally and moist oral mucous membranes Mouth: oral and palatal mucosa normal Eyes EOMs intact bilaterally and conjunctivae normal Neck no lymphadenopathy, supple and no JVD Resp normal respiratory effort, no retractions, no use of accessory muscles and clear to auscultation bilaterally Cardio regular rate, regular rhythm, S1 normal heart sound, S2 normal heart sound and no murmurs GI normal to inspection, nondistended, normoactive bowel sounds, soft to palpation, non-tender and non-distended Extremity normal to inspection, full ROM and no clubbing, cyanosis or edema Skin no rashes or lesions noted, no wounds and skin turgor normal Neuro oriented x3, CN's II-XII intact bilaterally, moves all extremities, no focal motor deficits and no sensory deficits noted Sensorium / Orientation: awake Motor Exam: strength 5/5 throughout Psych affect normal Weight / BMI Weight Weight: 207 lb 3.752 oz Body Mass Index (BMI) 27.3 ABG / Lab / Microbiology Data 09/15/23 06:45 09/15/23 06:45 Laboratory: Laboratory Results - last 24 hr 09/15/23 06:45: WBC 4.9, RBC 4.69, Hgb 13.8, Hct 42.4, MCV 90.4, MCH 29.4, MCHC 32.5, RDW Std Deviation 41.6, RDW Coeff of Carlos 12.7, Plt Count 197, MPV 10.5, Immature Gran % (Auto) 0.600, Neut % (Auto) 65.4, Lymph % (Auto) 22.5, [place] % (Auto) 9.5, Eos % (Auto) 1.6, Baso % (Auto) 0.4, Absolute Neuts (auto) 3.2, Absolute Lymphs (auto) 1.11, Nucleated RBC % 0, Sodium 139, Potassium 3.8, Chloride 104, Carbon Dioxide 33.0 H, Anion Gap 2 L, BUN 11, Creatinine 0.70, Estim Creat Clear Calc 130.00, Est GFR (MDRD) Af Amer 148, Est GFR (MDRD) Non-Af 122, BUN/Creatinine Ratio 15.6, Glucose 109 H, Calcium 9.4 Microbiology: Microbiology 09/13/23 10:20 Blood Culture (Wb) - Right Wrist Blood Culture - Preliminary No growth in 48 hours. 09/13/23 10:10 Blood Culture (Wb) - Anticubital Right Blood Culture - Preliminary Coag Negative Staph 09/13/23 10:10 Blood Culture (Wb) - Anticubital Left Bacteria Detection (PCR) - Final Coag Negative Staph 09/13/23 12:19 Mucosa - Nose Respiratory Panel (PCR) - Final RSV A 09/13/23 14:25 Urine, Random Legionella Antigen - Final 09/13/23 14:25 Urine, Random Streptococcus pneumoniae Antigen (M - Final 09/13/23 12:19 Mucosa - Nasopharyngeal Coronavirus COVID-19 PCR - Final 09/13/23 09:10 Nasal Secretion SARS-CoV-2 & FLU Antigen (Rapid) - Final D/C Instructions Discharge Diet: Low fat / Low cholesterol Discharge Activity: Return to Normal Activity Weight Bearing Status: Weight bearing as tolerated Call your doctor if you observe: Fever of 101 or Higher, Shortness of breath, Dizziness, Swelling in the ankles, Chest pain and Increased palpitations (irregular heartbeat) Meaningful Use Info Meaningful Use Diagnoses (Choose all that apply): None applicable Discharge Plan Admission Admit Date/Time: 09/13/23 10:48 Primary Reason for Your Visit: post viral pneumonia Attending Provider: Beronica Ledezma Primary Care Provider: Abe Moralez Consulting Providers: Naresh Roberson Instructions Patient Instructions: ED Pneumonia (Adult) Discharge Orders/Prescriptions Prescriptions: New doxycycline hyclate 100 mg tablet 100 mg PO BID Qty: 10 0RF oseltamivir [Tamiflu] 75 mg capsule 75 mg PO BID 5 Days Qty: 10 0RF Continued clozapine 100 MG tablet 100 mg PO DAILY clozapine 100 MG tablet 200 mg PO QHS fluticasone propionate 1 SPRAY spray,suspension 1 spray NASAL DAILY docusate sodium 100 mg capsule 200 mg PO BID Patient Comments: TAKE (2) CAPSULES BYCMOUTH TWICE DAILY. doxazosin 4 mg tablet 4 mg PO QHS albuterol sulfate [Ventolin HFA] 90 mcg/actuation HFA aerosol inhaler 2 puff inhalation Q4H PRN PRN (Reason: Wheezing) Qty: 1 0RF Rx Instructions: Dispense with Spacer lacosamide [Vimpat] 50 mg tablet 50 mg PO BID albuterol sulfate 2.5 mg /3 mL (0.083 %) Solution For Nebulization 2.5 mg inhalation Q2H PRN PRN (Reason: Shortness of Breath/Wheezing) Qty: 0 0RF levetiracetam [Keppra] 500 mg Tablet 500 mg PO BID multivitamin Tablet 1 tab PO DAILY acetaminophen [Acetaminophen Extra Strength] 500 mg Tablet 1,000 mg PO Q6H PRN (Reason: Pain) bacitracin 500 unit/gram ointment 1 applic TOPICAL Q12H Systane (PF) 0.4-0.3 % dropperette 1 drp EACH EYE DAILY PRN (Reason: dry eyes) Referrals / Follow Up: Abe Moralez MD [Primary Care Provider] - Within 1 Week Disposition Disposition (needs filled in before D/C Order can be placed): NonSkilled NH/Intermed Care Charges/Coding Visit Charges Inpatient E&M: 95388 Disch Hosp >30min
== END 2023-09-15 20:40 | disposition intermediate care facility (04) | DRG 194 ==
LOC: ED 11:04 → MS3 12:20
PROVIDERS: Admitting Provider Internal Medicine; Emergency Provider Emergency Medicine; PCP Family Medicine; Visit Provider Student in an Organized Health Care Education/Training Program
DX: J10.08 Influenza due to other identified influenza virus with other specified pneumonia (principal); F84.9 Pervasive developmental disorder, unspecified; B97.4 Respiratory syncytial virus as the cause of diseases classified elsewhere; G20.A1 Parkinson's disease without dyskinesia, without mention of fluctuations; G40.909 Epilepsy, unspecified, not intractable, without status epilepticus; E78.5 Hyperlipidemia, unspecified; K59.09 Other constipation; J15.9 Unspecified bacterial pneumonia; R09.02 Hypoxemia; Z66 Do not resuscitate; Z99.3 Dependence on wheelchair; Z79.899 Other long term (current) drug therapy
CPT/HCPCS: 36415; 71045; 80048; 83605; 85025; 87040; 87149; 87428; 87449; 87633; 87635; 87641; 93005; 94640; 97162; 97166; 97802; 99284; J7050; A4216; J0696; J2405

== ENCOUNTER 2023-10-11 07:02 | Outpatient (RCR) | payer MEDICARE, MEDICAID, SELFPAY ==
[2023-10-11 07:10] LABS: Absolute Lymphocyte Count 1.41 X10^3/uL (0.83-4.51); Absolute Neutrophil Count 2.3 X10^3/uL (2.0-7.7); Basophil# 0.04 X10^3/uL; Basophil% 0.9 % (0-1); Eosinophil# 0.11 X10^3/uL; Eosinophils% 2.6 % (0-5); Hemoglobin 14.4 g/dL (13.0-16.5); Lymphocyte # 1.41 X10^3/ul (0.83-4.51); Lymphocyte % 32.7 % (19-41); Mean Corp Hgb Conc 32.7 g/dL (32-36); Mean Corpuscular Hgb 30.2 pg (27.0-32.0); Mean Corpuscular Volume 92.2 fL (80-94); Mean Platelet Vol. 11.4 fl (6.2-12.0); Monocyte# 0.49 X10^3/uL; Monocyte% 11.4 % (0-10); NRBC Flagged by Analyzer 0 % (0-5); Neutrophil # 2.25 X10^3/uL (2.7-7.7); Neutrophil % 52.2 % (47-70); Platelet Count 145 K/mm3 (150-450); RBC Distribution Width CV 13.2 % (11.6-14.6); RBC Distribution Width SD 44.7 fl (35.1-43.9); Red Blood Count 4.77 M/mm3 (4.6-6.2); White Blood Count 4.3 K/mm3 (4.4-11.0)
== END 2023-10-24 23:59 ==
LOC: LABSPEC 07:02
PROVIDERS: PCP Family Medicine; Referring Provider Internal Medicine; Visit Provider Internal Medicine
DX: F29 Unspecified psychosis not due to a substance or known physiological condition (principal)
CPT/HCPCS: 85025

== ENCOUNTER 2023-11-08 06:58 | Outpatient (RCR) | payer MEDICARE, MEDICAID, SELFPAY ==
[2023-11-08 07:09] LABS: Absolute Lymphocyte Count 1.49 X10^3/uL (0.83-4.51); Absolute Neutrophil Count 2.1 X10^3/uL (2.0-7.7); Basophil# 0.04 X10^3/uL; Basophil% 0.9 % (0-1); Eosinophil# 0.12 X10^3/uL; Eosinophils% 2.8 % (0-5); Hematocrit 42.6 % (40-54); Hemoglobin 14.4 g/dL (13.0-16.5); Lymphocyte # 1.49 X10^3/ul (0.83-4.51); Lymphocyte % 35.2 % (19-41); Mean Corp Hgb Conc 33.8 g/dL (32-36); Mean Corpuscular Hgb 30.2 pg (27.0-32.0); Mean Corpuscular Volume 89.3 fL (80-94); Mean Platelet Vol. 11.2 fl (6.2-12.0); Monocyte# 0.48 X10^3/uL; Monocyte% 11.3 % (0-10); NRBC Flagged by Analyzer 0 % (0-5); Neutrophil # 2.09 X10^3/uL (2.7-7.7); Neutrophil % 49.6 % (47-70); Platelet Count 156 K/mm3 (150-450); RBC Distribution Width CV 12.9 % (11.6-14.6); RBC Distribution Width SD 42.3 fl (35.1-43.9); Red Blood Count 4.77 M/mm3 (4.6-6.2); White Blood Count 4.2 K/mm3 (4.4-11.0)
== END 2023-11-22 23:59 ==
LOC: LABSPEC 06:58
PROVIDERS: PCP Family Medicine; Referring Provider Internal Medicine; Visit Provider Internal Medicine
DX: F29 Unspecified psychosis not due to a substance or known physiological condition (principal)
CPT/HCPCS: 85025

== ENCOUNTER 2023-12-04 08:10 | Outpatient (RCR) | payer MEDICARE, MEDICAID, SELFPAY ==
[2023-12-04 09:34] LABS: Absolute Lymphocyte Count 1.41 X10^3/uL (0.83-4.51); Absolute Neutrophil Count 1.9 X10^3/uL (2.0-7.7); Basophil# 0.05 X10^3/uL; Basophil% 1.2 % (0-1); Eosinophil# 0.16 X10^3/uL; Hematocrit 43.6 % (40-54); Hemoglobin 14.3 g/dL (13.0-16.5); Lymphocyte # 1.41 X10^3/ul (0.83-4.51); Lymphocyte % 35.1 % (19-41); Mean Corp Hgb Conc 32.8 g/dL (32-36); Mean Corpuscular Hgb 29.7 pg (27.0-32.0); Mean Corpuscular Volume 90.5 fL (80-94); Mean Platelet Vol. 11.5 fl (6.2-12.0); Monocyte# 0.47 X10^3/uL; Monocyte% 11.7 % (0-10); NRBC Flagged by Analyzer 0 % (0-5); Neutrophil # 1.92 X10^3/uL (2.7-7.7); Neutrophil % 47.8 % (47-70); Platelet Count 159 K/mm3 (150-450); RBC Distribution Width CV 12.9 % (11.6-14.6); RBC Distribution Width SD 42.3 fl (35.1-43.9); Red Blood Count 4.82 M/mm3 (4.6-6.2)
== END 2023-12-23 23:59 ==
LOC: LABSPEC 08:10
PROVIDERS: PCP Family Medicine; Referring Provider Internal Medicine; Visit Provider Internal Medicine
DX: F29 Unspecified psychosis not due to a substance or known physiological condition (principal)
CPT/HCPCS: 85025

== ENCOUNTER 2024-01-01 07:13 | Outpatient (RCR) | payer MEDICARE, MEDICAID, SELFPAY ==
[2024-01-01 07:48] LABS: Absolute Lymphocyte Count 1.54 X10^3/uL (0.83-4.51); Absolute Neutrophil Count 2.6 X10^3/uL (2.0-7.7); Basophil# 0.05 X10^3/uL; Eosinophil# 0.18 X10^3/uL; Eosinophils% 3.7 % (0-5); Hematocrit 43.7 % (40-54); Hemoglobin 14.6 g/dL (13.0-16.5); Lymphocyte # 1.54 X10^3/ul (0.83-4.51); Lymphocyte % 31.6 % (19-41); Mean Corp Hgb Conc 33.4 g/dL (32-36); Mean Corpuscular Hgb 29.4 pg (27.0-32.0); Mean Corpuscular Volume 87.9 fL (80-94); Mean Platelet Vol. 11.7 fl (6.2-12.0); Monocyte# 0.49 X10^3/uL; Monocyte% 10.1 % (0-10); NRBC Flagged by Analyzer 0 % (0-5); Neutrophil % 53.4 % (47-70); Platelet Count 154 K/mm3 (150-450); RBC Distribution Width CV 12.9 % (11.6-14.6); RBC Distribution Width SD 41.1 fl (35.1-43.9); Red Blood Count 4.97 M/mm3 (4.6-6.2); White Blood Count 4.9 K/mm3 (4.4-11.0)
== END 2024-01-22 23:59 ==
LOC: LABSPEC 07:13
PROVIDERS: PCP Family Medicine; Referring Provider Internal Medicine; Visit Provider Internal Medicine
DX: F29 Unspecified psychosis not due to a substance or known physiological condition (principal)
CPT/HCPCS: 85025

== ENCOUNTER 2024-01-30 08:39 | Outpatient (RCR) | payer MEDICARE, MEDICAID, SELFPAY ==
[2024-01-30 09:01] LABS: Absolute Lymphocyte Count 1.39 X10^3/uL (0.83-4.51); Absolute Neutrophil Count 1.9 X10^3/uL (2.0-7.7); Basophil# 0.04 X10^3/uL; Eosinophil# 0.17 X10^3/uL; Eosinophils% 4.2 % (0-5); Hematocrit 44.3 % (40-54); Hemoglobin 14.4 g/dL (13.0-16.5); Lymphocyte # 1.39 X10^3/ul (0.83-4.51); Lymphocyte % 34.5 % (19-41); Mean Corp Hgb Conc 32.5 g/dL (32-36); Mean Corpuscular Hgb 29.3 pg (27.0-32.0); Mean Platelet Vol. 11.4 fl (6.2-12.0); Monocyte# 0.48 X10^3/uL; Monocyte% 11.9 % (0-10); NRBC Flagged by Analyzer 0 % (0-5); Neutrophil # 1.94 X10^3/uL (2.7-7.7); Neutrophil % 48.2 % (47-70); Platelet Count 152 K/mm3 (150-450); RBC Distribution Width SD 42.5 fl (35.1-43.9); Red Blood Count 4.92 M/mm3 (4.6-6.2)
== END 2024-02-22 23:59 ==
LOC: LABSPEC 08:39
PROVIDERS: PCP Family Medicine; Referring Provider Internal Medicine; Visit Provider Internal Medicine
DX: F29 Unspecified psychosis not due to a substance or known physiological condition (principal)
CPT/HCPCS: 85025

== ENCOUNTER 2024-03-05 13:06 | Outpatient (RCR) | payer MEDICARE, MEDICAID, SELFPAY ==
[2024-03-05 16:00] LABS: Absolute Lymphocyte Count 1.18 X10^3/uL (0.83-4.51); Absolute Neutrophil Count 3.3 X10^3/uL (2.0-7.7); Basophil# 0.05 X10^3/uL; Eosinophil# 0.15 X10^3/uL; Eosinophils% 2.9 % (0-5); Hematocrit 45.3 % (40-54); Hemoglobin 15.1 g/dL (13.0-16.5); Lymphocyte # 1.18 X10^3/ul (0.83-4.51); Lymphocyte % 22.5 % (19-41); Mean Corp Hgb Conc 33.3 g/dL (32-36); Mean Corpuscular Hgb 29.2 pg (27.0-32.0); Mean Corpuscular Volume 87.6 fL (80-94); Mean Platelet Vol. 11.4 fl (6.2-12.0); Monocyte# 0.54 X10^3/uL; Monocyte% 10.3 % (0-10); NRBC Flagged by Analyzer 0 % (0-5); Neutrophil # 3.32 X10^3/uL (2.7-7.7); Neutrophil % 63.1 % (47-70); Platelet Count 142 K/mm3 (150-450); RBC Distribution Width CV 12.9 % (11.6-14.6); RBC Distribution Width SD 40.9 fl (35.1-43.9); Red Blood Count 5.17 M/mm3 (4.6-6.2); White Blood Count 5.3 K/mm3 (4.4-11.0)
== END 2024-03-23 23:59 ==
LOC: LABSPEC 13:06
PROVIDERS: PCP Family Medicine; Referring Provider Internal Medicine; Visit Provider Internal Medicine
DX: F29 Unspecified psychosis not due to a substance or known physiological condition (principal)
CPT/HCPCS: 85025

== ENCOUNTER 2024-04-04 08:04 | Outpatient (RCR) | payer MEDICARE, MEDICAID, SELFPAY ==
[2024-04-04 08:19] LABS: Absolute Lymphocyte Count 1.58 X10^3/uL (0.83-4.51); Absolute Neutrophil Count 2.7 X10^3/uL (2.0-7.7); Basophil# 0.06 X10^3/uL; Basophil% 1.2 % (0-1); Eosinophil# 0.18 X10^3/uL; Eosinophils% 3.6 % (0-5); Hematocrit 46.8 % (40-54); Hemoglobin 15.7 g/dL (13.0-16.5); Lymphocyte # 1.58 X10^3/ul (0.83-4.51); Lymphocyte % 31.9 % (19-41); Mean Corp Hgb Conc 33.5 g/dL (32-36); Mean Corpuscular Hgb 29.4 pg (27.0-32.0); Mean Corpuscular Volume 87.6 fL (80-94); Mean Platelet Vol. 11.2 fl (6.2-12.0); Monocyte# 0.39 X10^3/uL; Monocyte% 7.9 % (0-10); NRBC Flagged by Analyzer 0 % (0-5); Neutrophil # 2.73 X10^3/uL (2.7-7.7); Neutrophil % 55.2 % (47-70); Platelet Count 163 K/mm3 (150-450); RBC Distribution Width CV 13.1 % (11.6-14.6); RBC Distribution Width SD 41.1 fl (35.1-43.9); Red Blood Count 5.34 M/mm3 (4.6-6.2)
== END 2024-04-23 23:59 ==
LOC: LABSPEC 08:04
PROVIDERS: PCP Family Medicine; Referring Provider Internal Medicine; Visit Provider Internal Medicine
DX: F29 Unspecified psychosis not due to a substance or known physiological condition (principal)
CPT/HCPCS: 85025

== ENCOUNTER 2024-05-05 07:13 | Outpatient (RCR) | payer MEDICARE, MEDICAID, SELFPAY ==
[2024-05-05 07:29] LABS: Absolute Lymphocyte Count 1.45 X10^3/uL (0.83-4.51); Absolute Neutrophil Count 2.3 X10^3/uL (2.0-7.7); Basophil# 0.05 X10^3/uL; Basophil% 1.1 % (0-1); Eosinophils% 4.4 % (0-5); Hematocrit 44.8 % (40-54); Hemoglobin 14.8 g/dL (13.0-16.5); Lymphocyte # 1.45 X10^3/ul (0.83-4.51); Mean Corpuscular Hgb 29.5 pg (27.0-32.0); Mean Corpuscular Volume 89.4 fL (80-94); Mean Platelet Vol. 11.2 fl (6.2-12.0); Monocyte# 0.47 X10^3/uL; Monocyte% 10.4 % (0-10); NRBC Flagged by Analyzer 0 % (0-5); Neutrophil # 2.34 X10^3/uL (2.7-7.7); Neutrophil % 51.7 % (47-70); Platelet Count 149 K/mm3 (150-450); RBC Distribution Width CV 13.2 % (11.6-14.6); RBC Distribution Width SD 42.8 fl (35.1-43.9); Red Blood Count 5.01 M/mm3 (4.6-6.2); White Blood Count 4.5 K/mm3 (4.4-11.0)
== END 2024-05-24 23:59 ==
LOC: LABSPEC 07:13
PROVIDERS: PCP Family Medicine; Referring Provider Internal Medicine; Visit Provider Internal Medicine
DX: F29 Unspecified psychosis not due to a substance or known physiological condition (principal)
CPT/HCPCS: 85025

== ENCOUNTER 2024-06-06 08:44 | Outpatient (RCR) | payer MEDICARE, MEDICAID, SELFPAY ==
[2024-06-06 08:49] LABS: Absolute Lymphocyte Count 1.48 X10^3/uL (0.83-4.51); Absolute Neutrophil Count 2.3 X10^3/uL (2.0-7.7); Basophil# 0.05 X10^3/uL; Basophil% 1.1 % (0-1); Eosinophil# 0.17 X10^3/uL; Eosinophils% 3.8 % (0-5); Hematocrit 43.1 % (40-54); Hemoglobin 14.4 g/dL (13.0-16.5); Lymphocyte # 1.48 X10^3/ul (0.83-4.51); Lymphocyte % 32.9 % (19-41); Mean Corp Hgb Conc 33.4 g/dL (32-36); Mean Corpuscular Hgb 29.8 pg (27.0-32.0); Mean Corpuscular Volume 89.2 fL (80-94); Mean Platelet Vol. 11.4 fl (6.2-12.0); Monocyte# 0.53 X10^3/uL; Monocyte% 11.8 % (0-10); NRBC Flagged by Analyzer 0 % (0-5); Neutrophil # 2.25 X10^3/uL (2.7-7.7); Platelet Count 148 K/mm3 (150-450); RBC Distribution Width CV 13.1 % (11.6-14.6); RBC Distribution Width SD 42.8 fl (35.1-43.9); Red Blood Count 4.83 M/mm3 (4.6-6.2); White Blood Count 4.5 K/mm3 (4.4-11.0)
== END 2024-06-23 23:59 ==
LOC: LABSPEC 08:44
PROVIDERS: PCP Family Medicine; Referring Provider Internal Medicine; Visit Provider Internal Medicine
DX: F29 Unspecified psychosis not due to a substance or known physiological condition (principal)
CPT/HCPCS: 85025

== ENCOUNTER 2024-07-07 07:03 | Outpatient (RCR) | payer MEDICARE, MEDICAID, SELFPAY ==
[2024-07-07 07:20] LABS: Absolute Lymphocyte Count 1.18 X10^3/uL (0.83-4.51); Absolute Neutrophil Count 4.7 X10^3/uL (2.0-7.7); Basophil# 0.03 X10^3/uL; Basophil% 0.4 % (0-1); Eosinophil# 0.09 X10^3/uL; Eosinophils% 1.3 % (0-5); Hematocrit 41.1 % (40-54); Hemoglobin 13.4 g/dL (13.0-16.5); Lymphocyte # 1.18 X10^3/ul (0.83-4.51); Lymphocyte % 17.3 % (19-41); Mean Corp Hgb Conc 32.6 g/dL (32-36); Mean Corpuscular Hgb 29.6 pg (27.0-32.0); Mean Corpuscular Volume 90.9 fL (80-94); Mean Platelet Vol. 11.4 fl (6.2-12.0); Monocyte# 0.85 X10^3/uL; Monocyte% 12.4 % (0-10); NRBC Flagged by Analyzer 0 % (0-5); Neutrophil # 4.66 X10^3/uL (2.7-7.7); Neutrophil % 68.2 % (47-70); Platelet Count 161 K/mm3 (150-450); RBC Distribution Width CV 13.5 % (11.6-14.6); RBC Distribution Width SD 45.6 fl (35.1-43.9); Red Blood Count 4.52 M/mm3 (4.6-6.2); White Blood Count 6.8 K/mm3 (4.4-11.0)
== END 2024-07-24 23:59 ==
LOC: LABSPEC 07:03
PROVIDERS: PCP Family Medicine; Referring Provider Internal Medicine; Visit Provider Internal Medicine
DX: F29 Unspecified psychosis not due to a substance or known physiological condition (principal)
CPT/HCPCS: 85025

== ENCOUNTER 2024-08-04 06:56 | Outpatient (RCR) | payer MEDICARE, MEDICAID, SELFPAY ==
[2024-08-04 07:12] LABS: Absolute Lymphocyte Count 1.37 X10^3/uL (0.83-4.51); Absolute Neutrophil Count 2.2 X10^3/uL (2.0-7.7); Basophil# 0.05 X10^3/uL; Basophil% 1.2 % (0-1); Eosinophil# 0.24 X10^3/uL; Eosinophils% 5.6 % (0-5); Hematocrit 42.1 % (40-54); Hemoglobin 14.3 g/dL (13.0-16.5); Lymphocyte # 1.37 X10^3/ul (0.83-4.51); Lymphocyte % 31.9 % (19-41); Mean Corpuscular Hgb 30.3 pg (27.0-32.0); Mean Corpuscular Volume 89.2 fL (80-94); Mean Platelet Vol. 11.4 fl (6.2-12.0); Monocyte# 0.44 X10^3/uL; Monocyte% 10.2 % (0-10); NRBC Flagged by Analyzer 0 % (0-5); Neutrophil # 2.18 X10^3/uL (2.7-7.7); Neutrophil % 50.6 % (47-70); Platelet Count 152 K/mm3 (150-450); RBC Distribution Width CV 12.8 % (11.6-14.6); Red Blood Count 4.72 M/mm3 (4.6-6.2); White Blood Count 4.3 K/mm3 (4.4-11.0)
[2024-08-27 08:05] LABS: Absolute Lymphocyte Count 1.32 X10^3/uL (0.83-4.51); Absolute Neutrophil Count 2.1 X10^3/uL (2.0-7.7); Basophil# 0.04 X10^3/uL; Eosinophil# 0.18 X10^3/uL; Eosinophils% 4.3 % (0-5); Hematocrit 43.7 % (40-54); Hemoglobin 14.4 g/dL (13.0-16.5); Lymphocyte # 1.32 X10^3/ul (0.83-4.51); Lymphocyte % 31.7 % (19-41); Mean Corpuscular Hgb 29.8 pg (27.0-32.0); Mean Corpuscular Volume 90.5 fL (80-94); Mean Platelet Vol. 11.6 fl (6.2-12.0); Monocyte# 0.48 X10^3/uL; Monocyte% 11.5 % (0-10); NRBC Flagged by Analyzer 0 % (0-5); Neutrophil # 2.12 X10^3/uL (2.7-7.7); Platelet Count 134 K/mm3 (150-450); RBC Distribution Width CV 13.2 % (11.6-14.6); RBC Distribution Width SD 43.5 fl (35.1-43.9); Red Blood Count 4.83 M/mm3 (4.6-6.2); White Blood Count 4.2 K/mm3 (4.4-11.0)
== END 2024-08-23 23:59 ==
LOC: LABSPEC 06:56
PROVIDERS: PCP Family Medicine; Referring Provider Internal Medicine; Visit Provider Internal Medicine
DX: F29 Unspecified psychosis not due to a substance or known physiological condition (principal)
CPT/HCPCS: 85025

== ENCOUNTER 2024-08-26 16:11 | Emergency (ER) | payer MEDICARE, MEDICAID, SELFPAY ==
[2024-08-26 16:17] VITALS: BP 160/109; PULSE 61; RESP 18; TEMP 36.3; O2SAT 94
[2024-08-26 16:18] VITALS: BP 160/109; PULSE 61; RESP 18; TEMP 36.3; O2SAT 94
[2024-08-26 18:12] VITALS: BP 154/97; PULSE 89; RESP 16; O2SAT 99
[2024-08-26] MEDS: levETIRAcetam IV 2,000 MG in 0.9% Normal Saline (250mL Bag) 230 ML 1000 MG IV (18:47)
[2024-08-26 19:18] LABS: Absolute Lymphocyte Count 1.25 X10^3/uL (0.83-4.51); Absolute Neutrophil Count 3.2 X10^3/uL (2.0-7.7); Basophil# 0.06 X10^3/uL; Basophil% 1.2 % (0-1); Eosinophil# 0.14 X10^3/uL; Eosinophils% 2.7 % (0-5); Hematocrit 44.9 % (40-54); Hemoglobin 14.8 g/dL (13.0-16.5); Lymphocyte # 1.25 X10^3/ul (0.83-4.51); Lymphocyte % 24.2 % (19-41); Mean Corpuscular Hgb 29.7 pg (27.0-32.0); Mean Corpuscular Volume 90.2 fL (80-94); Mean Platelet Vol. 11.9 fl (6.2-12.0); Monocyte# 0.54 X10^3/uL; Monocyte% 10.5 % (0-10); NRBC Flagged by Analyzer 0 % (0-5); Neutrophil # 3.16 X10^3/uL (2.7-7.7); Neutrophil % 61.2 % (47-70); Platelet Count 151 K/mm3 (150-450); RBC Distribution Width CV 13.3 % (11.6-14.6); RBC Distribution Width SD 43.6 fl (35.1-43.9); Red Blood Count 4.98 M/mm3 (4.6-6.2); White Blood Count 5.2 K/mm3 (4.4-11.0)
[2024-08-26 19:22] VITALS: BMI 26.4
[2024-08-26 19:25] LABS: Mucous, Urine 0 SEEN /hpf (<or=2+); Red Blood Cells-Urine 0 SEEN /hpf (0-5)
[2024-08-26 19:31] LABS: ALB/GLOB Ratio 1.1 RATIO (0.9-2.4); AST(SGOT) 110 U/L (15-37); Alanine Aminotransfer ALT/SGPT 164 U/L (16-61); Alkaline Phosphatase 190 U/L (45-117); Anion Gap 1 (5-15); BUN 14 mg/dL (7-18); BUN/Creat Ratio 18.9 RATIO (10-20); Calcium,Total 9.2 mg/dL (8.5-10.1); Chloride 104 mmol/L (98-107); Creatinine, Serum 0.74 mg/dL (0.70-1.30); EST Glomerular Filtration Rate 115 mL/min (>60); Est Glom Filt Rate - Afr Amer 139 mL/min (>60); Estimated Creatinine Clearance 121.47 ml/min; Globulin 3.6 g/dL (2.2-4.2); Glucose 95 mg/dL (74-106); Potassium 4.3 mmol/L (3.5-5.1); Protein, Total 7.6 g/dL (6.4-8.2); Sodium Level 140 mmol/L (136-145)
[2024-08-26 19:31] LABS: Color, Urine Yellow (Yellow); Glucose, Dipstick Normal (Normal); Ketone-Dipstick Negative (Negative); Leukocyte Esterase-Dipstick 100 /ul (Negative); Nitrite-Dipstick Negative (Negative); Occult Blood-Urine Negative /ul (Negative); Protein-Dipstick Negative (Negative); Specific Gravity, Urine 1.015 (1.002-1.030); Urine Bilirubin Dipstick Negative (Negative); Urine Clarity Clear (Clear); Urine Urobilinogen Normal (Normal)
[2024-08-26 19:49] LABS: Bacteria 3+ /hpf (None Seen); Squamous Epithelial Cells - UA 0-5 SEEN /hpf (0-5); White Blood Cells 0-5 SEEN /hpf (0-5)
[2024-08-26 20:00] VITALS: BP 149/87; PULSE 87; RESP 18; O2SAT 98
--- NOTE | 2024-08-26 20:44 | EDS_ITS ---
HPI History of Present Illness Chief Complaint: Complaint Narrative Narrative: Patient is a 59-year-old male with past medical history of autism, cognitive impairment, seizure disorder, Parkinson's who presents to the emergency department the chief complaint of increased frequency of urinating according to staff members at bedside who provided the history of present illness. They state that they are concerned that he has a urinary tract infection given that he is having increased frequency of urinating. They also noted that he has missed several doses of his Keppra they were out of this. They deny any seizure activity. [facility] Medical History Bilateral pneumonia Influenza A Impulse control disorder Skin ulcer of right hip with fat layer exposed Abrasion of hip, right Cellulitis of right upper extremity Constipation Non-smoker Seizures Cognitive impairment Autism Seizure disorder Home Medications ?Medication ?Instructions ?Recorded ?Last Taken ?Type clozapine 100 mg tablet 100 mg PO DAILY anxiety 07/24/16 04/03/22 History clozapine 100 mg tablet 200 mg PO QHS anxiety 07/24/16 04/02/22 History fluticasone propionate 50 1 spray DAILY allergies 07/24/16 04/03/22 History mcg/actuation nasal spray,suspension docusate sodium 100 mg capsule 200 mg PO BID constipation 02/10/22 04/03/22 History doxazosin 4 mg tablet 4 mg PO QHS htn 02/10/22 04/02/22 History albuterol sulfate 90 mcg/actuation 2 puff inhalation Q4H PRN PRN 03/14/22 04/02/22 Rx aerosol inhaler (Ventolin HFA) Wheezing ##1 lacosamide 50 mg tablet (Vimpat) 50 mg PO BID . 04/03/22 04/03/22 History albuterol sulfate 2.5 mg/3 mL 2.5 mg (3 mL) inhalation Q2H PRN 04/05/22 Unknown Rx (0.083 %) solution for nebulization PRN Shortness of Breath/Wheezing #0 mL levetiracetam 500 mg tablet 500 mg PO BID 01/26/23 Unknown History (Keppra) acetaminophen 500 mg tablet 1,000 mg PO Q6H PRN Pain 03/08/23 Unknown History (Acetaminophen Extra Strength) multivitamin 1 tab PO DAILY 03/08/23 Unknown History bacitracin 500 unit/gram topical 1 applic topical Q12H 09/13/23 09/12/23 History ointment peg 400-propylene glycol (PF) 0.4 1 drp EACH EYE DAILY PRN dry eyes 09/13/23 Unknown History %-0.3 % eye drops in a dropperette (Systane (PF)) doxycycline hyclate 100 mg tablet 100 mg PO BID #10 tabs 09/15/23 Unknown Rx oseltamivir 75 mg capsule (Tamiflu) 75 mg PO BID 5 days #10 caps 09/15/23 Unknown Rx cephalexin 500 mg capsule 500 mg PO BID 5 days #10 caps 08/26/24 Unknown Rx Allergy/AdvReac Type Severity Reaction Status Date / Time No Known Allergies Allergy Verified 08/26/24 16:16 Family History Mother Seizures COPD (chronic obstructive pulmonary disease) Father Glaucoma Surgical History History of lingual frenulectomy History of rectal surgery Social History housing: other details: [facility]. Smoking Status: Never smoker alcohol intake: never substance use type: does not use ROS ROS ED ROS Narrative Review of systems unobtainable from patient secondary to his underlying mental status therefore acute care caveat applies EXAM Physical Exam Narrative Exam Narrative: General: Patient is lying in bed rest comfortably did not appear to be in acute distress Head: Atraumatic, normocephalic Eyes: Pupils equal round react to light bilaterally, no conjunctival injection noted Neck: Soft, supple, trachea midline Cardiovascular: Regular rate and rhythm no murmurs gallops rubs noted Respiratory: Clear to auscultation bilaterally Abdomen: Soft, nondistended, bowel sounds present x 4 Extremities: Patient moving all extremities Neurological: Patient is at his baseline according to staff members at bedside Skin: Warm, dry, intact Const Vital Signs: 08/26/24 16:17 08/26/24 16:18 08/26/24 18:12 Temperature 97.3 F L 97.3 F L Temperature Source Oral Oral Pulse Rate 61 61 89 Respiratory Rate 18 18 16 Blood Pressure 160/109 H 160/109 H 154/97 H Blood Pressure Mean 126 126 116 Pulse Ox 94 94 99 Oxygen Delivery Method Room Air Room Air Room Air MDM MDM MDM Narrative Medical decision making narrative: Patient is a 59-year-old male who presented to the emergency department due to concern for urinary tract infection. Patient will have a urinalysis performed and a Keppra level will be sent per request of the staff from the [facility]. On the differential diagnose clues but not into UTI, electrolyte abnormalities. Once workup is obtained reviewed he will be reevaluated. Patient's CBC reviewed and was largely unremarkable no evidence leukocytosis white blood count normal at 5.2, hemoglobin is 14.8, platelet count normal at 151. Patient's sodium normal at 140, potassium normal at 4.3, creatinine normal at 0.74. Patient AST and ALT 110 and 164 respectively. Patient's urinalysis showed 100 leukocyte esterase 0-5 white cells with 3+ bacteria given that he is having urinary symptoms we will give him a gram Rocephin and treat him for urinary tract infection with Keflex. This will be sent for culture as well and staff member bedside was advised to follow-up on this with his primary care physician which they are agreeable. They advised to follow-up on the Keppra lev el he was given 2 g of Keppra here and they state that they did obtain the prescription and have more Keppra at this point in time they are advised to have him take this as prescribed. Encouraged to have him return with worsening symptoms or other concerns. They are agreeable this plan all question concerns answered he is discharged home in stable condition. Lab Data Labs: Laboratory Results - last 24 hr 08/26/24 08/26/24 17:48 19:20 WBC 5.2 RBC 4.98 Hgb 14.8 Hct 44.9 MCV 90.2 MCH 29.7 MCHC 33.0 RDW Std Deviation 43.6 RDW Coeff of Carlos 13.3 Plt Count 151 MPV 11.9 Immature Gran % (Auto) 0.200 Neut % (Auto) 61.2 Lymph % (Auto) 24.2 [place] % (Auto) 10.5 H Eos % (Auto) 2.7 Baso % (Auto) 1.2 H Absolute Neuts (auto) 3.2 Absolute Lymphs (auto) 1.25 Nucleated RBC % 0 Sodium 140 Potassium 4.3 Chloride 104 Carbon Dioxide 35.0 H Anion Gap 1 L BUN 14 Creatinine 0.74 Estim Creat Clear Calc 121.47 Est GFR (MDRD) Af Amer 139 Est GFR (MDRD) Non-Af 115 BUN/Creatinine Ratio 18.9 Glucose 95 Calcium 9.2 Total Bilirubin 0.30 AST 110 H ALT 164 H Alkaline Phosphatase 190 H Total Protein 7.6 Albumin 4.0 Globulin 3.6 Albumin/Globulin Ratio 1.1 Urine Color Yellow Urine Clarity Clear Urine pH 6.0 Ur Specific [place] 1.015 Urine Protein Negative Urine Glucose (UA) Normal Urine Ketones Negative Urine Occult Blood Negative Urine Nitrite Negative Urine Bilirubin Negative Urine Urobilinogen Normal Ur Leukocyte Esterase 100 H Urine RBC 0 SEEN Urine WBC 0-5 SEEN Ur Squamous Epith Cells 0-5 SEEN Urine Bacteria 3+ Urine Mucus 0 SEEN Discharge Plan Triage Chief Complaint: Complaint ED Provider: Rivera Sanchez Dx/Rx/DC Orders Clinical Impression: Urinary tract infection Prescriptions: New cephalexin 500 mg capsule 500 mg PO BID 5 Days Qty: 10 0RF No Action clozapine 100 MG tablet 100 mg PO DAILY clozapine 100 MG tablet 200 mg PO QHS fluticasone propionate 1 SPRAY spray,suspension 1 spray NASAL DAILY docusate sodium 100 mg capsule 200 mg PO BID Patient Comments: TAKE (2) CAPSULES BYCMOUTH TWICE DAILY. doxazosin 4 mg tablet 4 mg PO QHS albuterol sulfate [Ventolin HFA] 90 mcg/actuation HFA aerosol inhaler 2 puff inhalation Q4H PRN PRN (Reason: Wheezing) Qty: 1 0RF Rx Instructions: Dispense with Spacer lacosamide [Vimpat] 50 mg tablet 50 mg PO BID albuterol sulfate 2.5 mg /3 mL (0.083 %) Solution For Nebulization 2.5 mg inhalation Q2H PRN PRN (Reason: Shortness of Breath/Wheezing) Qty: 0 0RF levetiracetam [Keppra] 500 mg Tablet 500 mg PO BID multivitamin Tablet 1 tab PO DAILY acetaminophen [Acetaminophen Extra Strength] 500 mg Tablet 1,000 mg PO Q6H PRN (Reason: Pain) bacitracin 500 unit/gram ointment 1 applic TOPICAL Q12H Systane (PF) 0.4-0.3 % dropperette 1 drp EACH EYE DAILY PRN (Reason: dry eyes) doxycycline hyclate 100 mg tablet 100 mg PO BID Qty: 10 0RF oseltamivir [Tamiflu] 75 mg capsule 75 mg PO BID 5 Days Qty: 10 0RF Primary Care Provider: Abe Moralez Referrals: Abe Moralez MD [Primary Care Provider] - Activity Restrictions/Additional Instructions: Follow-up with his doctor in outpatient setting. Follow-up on the urine culture result with them as well. Take antibiotics as prescribed. Return with worsening symptoms or any concerns. Print Language: Khmer Disposition Disposition: Home, Self Care
[2024-08-26] MEDS: Ceftriaxone 1 GM/50 ML BAG IV (21:05)
[2024-08-29 16:09] LABS: KEPPRA (LEVETIRACETAM) 9.3 ug/mL (10.0-40.0)
== END 2024-08-26 21:36 | disposition home or self-care (01) ==
PROVIDERS: Emergency Provider Emergency Medicine; PCP Family Medicine; Visit Provider Emergency Medicine
DX: N39.0 Urinary tract infection, site not specified (principal); G20.A1 Parkinson's disease without dyskinesia, without mention of fluctuations; G40.909 Epilepsy, unspecified, not intractable, without status epilepticus; F84.0 Autistic disorder; G31.84 Mild cognitive impairment of uncertain or unknown etiology; Z91.148 Patient's other noncompliance with medication regimen for other reason; Z79.899 Other long term (current) drug therapy
CPT/HCPCS: 80053; 80177; 81001; 85025; 87077; 87086; 87088; 87186; 96365; 96367; 99282; A4216

== ENCOUNTER 2024-09-22 09:31 | Outpatient (RCR) | payer MEDICARE, MEDICAID, SELFPAY ==
[2024-09-02 07:45] LABS: Absolute Lymphocyte Count 1.34 X10^3/uL (0.83-4.51); Absolute Neutrophil Count 2.3 X10^3/uL (2.0-7.7); Basophil# 0.07 X10^3/uL; Basophil% 1.6 % (0-1); Eosinophil# 0.19 X10^3/uL; Eosinophils% 4.3 % (0-5); Hematocrit 44.4 % (40-54); Hemoglobin 14.9 g/dL (13.0-16.5); Lymphocyte # 1.34 X10^3/ul (0.83-4.51); Lymphocyte % 30.5 % (19-41); Mean Corp Hgb Conc 33.6 g/dL (32-36); Mean Corpuscular Hgb 30.2 pg (27.0-32.0); Mean Corpuscular Volume 90.1 fL (80-94); Mean Platelet Vol. 11.1 fl (6.2-12.0); Monocyte# 0.49 X10^3/uL; Monocyte% 11.1 % (0-10); NRBC Flagged by Analyzer 0 % (0-5); Neutrophil % 52.3 % (47-70); Platelet Count 160 K/mm3 (150-450); RBC Distribution Width CV 13.2 % (11.6-14.6); Red Blood Count 4.93 M/mm3 (4.6-6.2); White Blood Count 4.4 K/mm3 (4.4-11.0)
[2024-09-08 12:19] LABS: Absolute Lymphocyte Count 1.38 X10^3/uL (0.83-4.51); Absolute Neutrophil Count 2.7 X10^3/uL (2.0-7.7); Basophil# 0.05 X10^3/uL; Basophil% 1.1 % (0-1); Eosinophils% 4.3 % (0-5); Hematocrit 46.6 % (40-54); Hemoglobin 15.2 g/dL (13.0-16.5); Lymphocyte # 1.38 X10^3/ul (0.83-4.51); Lymphocyte % 29.4 % (19-41); Mean Corp Hgb Conc 32.6 g/dL (32-36); Mean Corpuscular Hgb 29.5 pg (27.0-32.0); Mean Corpuscular Volume 90.5 fL (80-94); Mean Platelet Vol. 11.4 fl (6.2-12.0); Monocyte# 0.38 X10^3/uL; Monocyte% 8.1 % (0-10); NRBC Flagged by Analyzer 0 % (0-5); Neutrophil # 2.69 X10^3/uL (2.7-7.7); Neutrophil % 57.1 % (47-70); Platelet Count 146 K/mm3 (150-450); RBC Distribution Width SD 42.6 fl (35.1-43.9); Red Blood Count 5.15 M/mm3 (4.6-6.2); White Blood Count 4.7 K/mm3 (4.4-11.0)
[2024-09-15 12:20] LABS: Absolute Neutrophil Count 2.9 X10^3/uL (2.0-7.7); Basophil# 0.04 X10^3/uL; Basophil% 0.9 % (0-1); Eosinophil# 0.16 X10^3/uL; Eosinophils% 3.5 % (0-5); Hematocrit 49.4 % (40-54); Hemoglobin 16.2 g/dL (13.0-16.5); Lymphocyte % 23.9 % (19-41); Mean Corp Hgb Conc 32.8 g/dL (32-36); Mean Corpuscular Hgb 29.5 pg (27.0-32.0); Mean Platelet Vol. 11.6 fl (6.2-12.0); Monocyte# 0.42 X10^3/uL; Monocyte% 9.1 % (0-10); NRBC Flagged by Analyzer 0 % (0-5); Neutrophil # 2.87 X10^3/uL (2.7-7.7); Neutrophil % 62.2 % (47-70); Platelet Count 154 K/mm3 (150-450); RBC Distribution Width SD 43.3 fl (35.1-43.9); Red Blood Count 5.49 M/mm3 (4.6-6.2); White Blood Count 4.6 K/mm3 (4.4-11.0)
[2024-09-22 12:44] LABS: Absolute Lymphocyte Count 1.13 X10^3/uL (0.83-4.51); Absolute Neutrophil Count 2.6 X10^3/uL (2.0-7.7); Basophil# 0.03 X10^3/uL; Basophil% 0.7 % (0-1); Eosinophil# 0.13 X10^3/uL; Hematocrit 47.2 % (40-54); Hemoglobin 15.3 g/dL (13.0-16.5); Lymphocyte # 1.13 X10^3/ul (0.83-4.51); Lymphocyte % 26.3 % (19-41); Mean Corp Hgb Conc 32.4 g/dL (32-36); Mean Corpuscular Hgb 29.5 pg (27.0-32.0); Mean Corpuscular Volume 90.9 fL (80-94); Mean Platelet Vol. 11.5 fl (6.2-12.0); Monocyte# 0.41 X10^3/uL; Monocyte% 9.5 % (0-10); NRBC Flagged by Analyzer 0 % (0-5); Neutrophil # 2.58 X10^3/uL (2.7-7.7); Platelet Count 151 K/mm3 (150-450); RBC Distribution Width CV 13.1 % (11.6-14.6); RBC Distribution Width SD 43.9 fl (35.1-43.9); Red Blood Count 5.19 M/mm3 (4.6-6.2); White Blood Count 4.3 K/mm3 (4.4-11.0)
== END 2024-09-23 23:59 ==
LOC: LABSPEC 09:31
PROVIDERS: PCP Family Medicine; Referring Provider Internal Medicine; Visit Provider Internal Medicine
DX: F29 Unspecified psychosis not due to a substance or known physiological condition (principal)
CPT/HCPCS: 85025

== ENCOUNTER 2024-10-20 08:05 | Outpatient (RCR) | payer MEDICARE, MEDICAID, SELFPAY ==
[2024-09-29 12:27] LABS: Absolute Lymphocyte Count 1.17 X10^3/uL (0.83-4.51); Absolute Neutrophil Count 2.5 X10^3/uL (2.0-7.7); Basophil# 0.05 X10^3/uL; Basophil% 1.2 % (0-1); Eosinophil# 0.18 X10^3/uL; Eosinophils% 4.2 % (0-5); Hematocrit 49.9 % (40-54); Hemoglobin 16.4 g/dL (13.0-16.5); Lymphocyte # 1.17 X10^3/ul (0.83-4.51); Lymphocyte % 27.2 % (19-41); Mean Corp Hgb Conc 32.9 g/dL (32-36); Mean Corpuscular Hgb 30.1 pg (27.0-32.0); Mean Corpuscular Volume 91.6 fL (80-94); Mean Platelet Vol. 10.9 fl (6.2-12.0); Monocyte# 0.42 X10^3/uL; Monocyte% 9.8 % (0-10); NRBC Flagged by Analyzer 0 % (0-5); Neutrophil # 2.45 X10^3/uL (2.7-7.7); Neutrophil % 56.9 % (47-70); Platelet Count 155 K/mm3 (150-450); RBC Distribution Width CV 13.3 % (11.6-14.6); RBC Distribution Width SD 44.6 fl (35.1-43.9); Red Blood Count 5.45 M/mm3 (4.6-6.2); White Blood Count 4.3 K/mm3 (4.4-11.0)
[2024-10-06 12:16] LABS: Absolute Lymphocyte Count 1.35 X10^3/uL (0.83-4.51); Absolute Neutrophil Count 2.8 X10^3/uL (2.0-7.7); Basophil# 0.03 X10^3/uL; Basophil% 0.6 % (0-1); Eosinophil# 0.14 X10^3/uL; Hematocrit 46.7 % (40-54); Hemoglobin 15.6 g/dL (13.0-16.5); Lymphocyte # 1.35 X10^3/ul (0.83-4.51); Lymphocyte % 28.5 % (19-41); Mean Corp Hgb Conc 33.4 g/dL (32-36); Mean Corpuscular Hgb 30.1 pg (27.0-32.0); Monocyte# 0.39 X10^3/uL; Monocyte% 8.2 % (0-10); NRBC Flagged by Analyzer 0 % (0-5); Neutrophil # 2.81 X10^3/uL (2.7-7.7); Neutrophil % 59.3 % (47-70); Platelet Count 177 K/mm3 (150-450); RBC Distribution Width SD 42.5 fl (35.1-43.9); Red Blood Count 5.19 M/mm3 (4.6-6.2); White Blood Count 4.7 K/mm3 (4.4-11.0)
[2024-10-13 08:49] LABS: Absolute Lymphocyte Count 1.05 X10^3/uL (0.83-4.51); Absolute Neutrophil Count 2.7 X10^3/uL (2.0-7.7); Basophil# 0.04 X10^3/uL; Basophil% 0.9 % (0-1); Eosinophil# 0.12 X10^3/uL; Eosinophils% 2.8 % (0-5); Hematocrit 48.8 % (40-54); Hemoglobin 16.1 g/dL (13.0-16.5); Lymphocyte # 1.05 X10^3/ul (0.83-4.51); Lymphocyte % 24.9 % (19-41); Mean Corpuscular Hgb 29.9 pg (27.0-32.0); Mean Corpuscular Volume 90.7 fL (80-94); Mean Platelet Vol. 10.9 fl (6.2-12.0); Monocyte# 0.32 X10^3/uL; Monocyte% 7.6 % (0-10); NRBC Flagged by Analyzer 0 % (0-5); Neutrophil # 2.66 X10^3/uL (2.7-7.7); Neutrophil % 63.1 % (47-70); Platelet Count 156 K/mm3 (150-450); RBC Distribution Width CV 13.1 % (11.6-14.6); RBC Distribution Width SD 43.7 fl (35.1-43.9); Red Blood Count 5.38 M/mm3 (4.6-6.2); White Blood Count 4.2 K/mm3 (4.4-11.0)
[2024-10-20 12:07] LABS: Absolute Lymphocyte Count 1.15 X10^3/uL (0.83-4.51); Absolute Neutrophil Count 2.3 X10^3/uL (2.0-7.7); Basophil# 0.06 X10^3/uL; Basophil% 1.5 % (0-1); Eosinophil# 0.18 X10^3/uL; Eosinophils% 4.4 % (0-5); Hematocrit 50.1 % (40-54); Hemoglobin 16.2 g/dL (13.0-16.5); Lymphocyte # 1.15 X10^3/ul (0.83-4.51); Mean Corp Hgb Conc 32.3 g/dL (32-36); Mean Corpuscular Hgb 29.3 pg (27.0-32.0); Mean Corpuscular Volume 90.6 fL (80-94); Mean Platelet Vol. 11.1 fl (6.2-12.0); Monocyte# 0.34 X10^3/uL; Monocyte% 8.3 % (0-10); NRBC Flagged by Analyzer 0 % (0-5); Neutrophil # 2.33 X10^3/uL (2.7-7.7); Neutrophil % 56.6 % (47-70); Platelet Count 176 K/mm3 (150-450); RBC Distribution Width SD 42.3 fl (35.1-43.9); Red Blood Count 5.53 M/mm3 (4.6-6.2); White Blood Count 4.1 K/mm3 (4.4-11.0)
== END 2024-10-24 23:59 ==
LOC: LABSPEC 08:05
PROVIDERS: PCP Family Medicine; Referring Provider Internal Medicine; Visit Provider Internal Medicine
DX: F29 Unspecified psychosis not due to a substance or known physiological condition (principal)
CPT/HCPCS: 85025

== ENCOUNTER 2024-11-09 07:39 | Emergency (ER) | payer MEDICARE, MEDICAID, SELFPAY ==
[2024-11-09 07:41] VITALS: BP 162/93; PULSE 56; RESP 18; TEMP 36.4; O2SAT 93; BMI 28.7
--- NOTE | 2024-11-09 07:44 | CT_ITS ---
EXAM: BRAIN/HEAD WITHOUT CONTRAST CLINICAL HISTORY: 59-year-old male, trauma. Fell at [facility]ial, abrasion to top of head. COMPARISON: CT head 06/27/2023. TECHNIQUE: Routine CT imaging of the head without IV contrast. Additional multiplanar reformats were obtained. Dose reduction techniques were used including intermediate exposure control (AEC),iterative reconstruction technique, and/or mA and/or KV dose adjustments based on patient's size. FINDINGS: No acute intracranial hemorrhage or mass effect. The rodriguez-white matter interfaces are maintained. No hydrocephalus. The basal cisterns are patent. Mild mucosal thickening of the left frontal sinus, a few bilateral ethmoid air cells and left sphenoid sinus. The mastoid air cells are well-aerated. Right globe prosthesis. Unremarkable left orbit. No acute calvarial fracture or scalp laceration. Stable subcutaneous thickening along the left lateral orbit. CT/Brain/Head without Contrast IMPRESSION: Stable CT head. Reading Location: [id number]
--- NOTE | 2024-11-09 07:44 | CT_ITS ---
PROCEDURE: SPINE CERVICAL WITHOUT CONTRAS REASON FOR EXAM: 59-year-old male, trauma, fell at [facility], endorsing neck pain. TECHNIQUE: Cervical spine CT without contrast. COMPARISON: CT C-spine 06/27/2023. FINDINGS: Alignment: Mild straightening of the normal cervical lordosis. No traumatic subluxation. Vertebrae: No acute fracture. Mild multilevel height loss of several cervical vertebral bodies. Multilevel anterior flowing vertebral body osteophytes, compatible with diffuse idiopathic skeletal hyperostosis. Multilevel degenerative disc disease with posterior disc osteophyte complexes and bilateral facet hypertrophy results in multilevel mild central and neural foraminal stenosis. No moderate or severe canal stenosis identified. Soft Tissues: No hematoma Mild scarring of the biapical lungs. CT/Spine Cervical without Contras IMPRESSION: No acute osseous fracture or traumatic subluxation. One or more dose reduction techniques were used (e.g., Automated exposure contr ol, adjustment of the mA and/or kV according to patient size, use of iterative reconstruction technique). Reading Location: [id number]
--- NOTE | 2024-11-09 07:46 | EDS_ITS ---
HPI History of Present Illness Chief Complaint: Headache Informant: patient, parent and EMS Narrative Narrative: 59-year-old male from senior care presenting to the emergency room with head injury. Patient arriving via EMS. Father was with him visiting the senior care to help care for her son. He was helping him up when he sustained a mechanical fall striking his head on the ground. He is complaining of neck pain. Patient is requesting Tylenol. He has not had any of his morning medications yet. He denies any other arm or leg injuries. He states he is hungry. [facility] Medical History Bilateral pneumonia Influenza A Impulse control disorder Skin ulcer of right hip with fat layer exposed Abrasion of hip, right Cellulitis of right upper extremity Constipation Non-smoker Seizures Cognitive impairment Autism Seizure disorder Home Medications ?Medication ?Instructions ?Recorded ?Last Taken ?Type fluticasone propionate 50 1 spray DAILY allergies 06/2604/03/22 History mcg/actuation nasal spray,suspension doxazosin 4 mg tablet 4 mg PO QHS htn 02/10/2207/15 History albuterol sulfate 90 mcg/actuation 2 puff inhalation Q 4H PRN PRN 03/14/22 04/02/22 Rx aerosol inhaler (Ventolin HFA) Wheezing ##1 levetiracetam 500 mg tablet 500 mg PO BID 01/26/23 Unk nown History (Keppra) multivitamin 1 tab PO DAILY 03/08/23 Unkn own History benztropine 0.5 mg tablet mg 11/09/24 Unknown History lactulose 10 gram/15 mL oral ml PO 11/09/24 Unknown Hi story solution Allergy/AdvReac Type Severity Reaction Status Date / Time No Known Allergies Allergy Verified 08/26/24 16:16 Family History Mother Seizures COPD (chronic obstructive pulmonary disease) Father Glaucoma Surgical History History of lingual frenulectomy History of rectal surgery Social History housing: other details: [facility]. Smoking Status: Never smoker alcohol intake: never substance use type: does not use ROS ROS ED Constitutional Constitutional ED: Denies chills or weight loss Eyes Eyes: Denies change in vision or diplopia ENT ENT ED: Denies ear pain, rhinorrhea or sore throat Cardiovascular Cardiovascular: Denies chest pain, orthopnea, palpitations or racing heartbeat Respiratory/Chest Respiratory/Chest: Denies cough, dyspnea or orthopnea Gastrointestinal Gastrointestinal: Denies abdominal pain, diarrhea, nausea or vomiting Genitourinary Genitourinary ED: Denies dysuria, hematuria or urinary frequency Musculoskeletal Musculoskeletal: Reports neck pain; Denies arthralgias or myalgias Integumentary Reports Abrasions; Denies abscess or rash Neurologic Neurologic: Reports headache(s); Denies weakness Psychiatric Psychiatric: Denies anxiety, depression, suicidal ideation or suicidal thoughts Endocrine Endocrinology: Denies polydipsia, polyphagia or polyuria Allergic/Immunologic Allergic/Immunologic ED: Denies mouth swelling, tongue swelling or urticaria EXAM Physical Exam Const Vital Signs: 11/09/24 07:41 11/09/24 10:05 Temperature 97.5 F L Temperature Source Oral Pulse Rate 56 L 54 L Respiratory Rate 18 16 Blood Pressure 162/93 H 155/95 H Blood Pressure Mean 116 115 Pulse Ox 93 94 Oxygen Delivery Method Room Air Positive well nourished, well developed and obese General Appearance ED: well developed and NAD Nutritional Appearance: obese HEENT Reports normocephalic and moist mucous membranes HEENT Narrative: There is a 4 cm round abrasion in the hairline of the frontal scalp. No palpable bony depression. Eyes PERRL and EOMs intact bilaterally Neck no lymphadenopathy, supple and no JVD Neck Narrative: Patient reports tenderness to palpation posteriorly of the neck. Resp normal respiratory effort and clear to auscultation bilaterally Cardio regular rate, regular rhythm and no murmurs GI normal to inspection, nondistended, normoactive bowel sounds and non-tender Palpation: soft Back/Spine no CVA tenderness and normal ROM Extremity Extremity Narrative: Chronic contractures General Extremety ED: Negative for edema General Extremity: Negative for edema Neuro oriented x3 and CN's II-XII intact bilaterally Neuro Narrative: Patient able to lift arms up off the bed. He is able to move legs. Sensorium / Orientation: alert Psych mental status grossly normal Mood & Affect: Negative for depressed or tearful Skin no rashes or lesions noted Trauma: abrasion MDM MDM MDM Narrative Medical decision making narrative: Differential diagnosis includes skull fracture cervical spine fracture cervical myofascial strain abrasion laceration concussion CT of the brain and cervical spine does not demonstrate any acute fracture or hemorrhage. He was given a dose of his morning medications for what I was able to give him. Local wound care performed. Patient to follow-up as needed Tylenol Motrin for headache and neck pain. Patient to return if worsening or concerns History & Record Review Discussion w/independent historian: EMS personnel, Patient and Family (Father) Radiography Diagnostic Testing: Clinical Impression(s) from Imaging Studies Brain CT 11/09/24 07:44 IMPRESSION: Stable CT head. Reading Location: [facility] Cervical Spine CT 11/09/24 07:44 IMPRESSION: No acute osseous fracture or traumatic subluxation. One or more dose reduction techniques were used (e.g., Automated exposure control, adjustment of the mA and/or kV according to patient size, use of iterative reconstruction technique). Reading Location: [facility] Discharge Plan Triage Chief Complaint: Headache ED Provider: Sharath Rick Dx/Rx/DC Orders Clinical Impression: Cognitive impairment, Autism, Abrasion of scalp, Acute cervical myofascial strain Instructions: ED Abrasion, ED Neck Sprain or Strain Prescriptions: No Action fluticasone propionate 1 SPRAY spray,suspension 1 spray NASAL DAILY doxazosin 4 mg tablet 4 mg PO QHS albuterol sulfate [Ventolin HFA] 90 mcg/actuation HFA aerosol inhaler 2 puff inhalation Q4H PRN PRN (Reason: Wheezing) Qty: 1 0RF Rx Instructions: Dispense with Spacer levetiracetam [Keppra] 500 mg Tablet 500 mg PO BID multivitamin Tablet 1 tab PO DAILY benztropine 0.5 mg tablet Patient Comments: [NO ORIGINAL SIG] lactulose 10 gram/15 mL solution PO Primary Care Provider: Abe Moralez Referrals: Abe Moralez MD [Primary Care Provider] - As Needed Activity Restrictions/Additional Instructions: Local wound care to the scalp abrasion using bacitracin or antibiotic ointment. Print Language: Haitian Disposition Disposition: Home, Self Care Discharge Date/Time: 11/09/24 10:29
[2024-11-09] MEDS: Acetaminophen 325 MG Tablet 650 MG PO (09:21)
[2024-11-09] MEDS: Lactulose 20 GM/30 ML UDC 10 GM PO (09:47)
[2024-11-09] MEDS: levETIRAcetam 500 MG Tablet PO (09:48)
[2024-11-09] MEDS: Polyethylene Glycol 3350 17 GM PACKET PO (09:48)
[2024-11-09] MEDS: Docusate Sodium 100 MG Capsule PO (09:48)
--- NOTE | 2024-11-09 09:50 | ED.RN ---
CALLED FOR [facility] @ 1125 ETA IS 60MINS
[2024-11-09] MEDS: Benztropine 2 MG Tablet 0.5 MG PO (09:56)
[2024-11-09 10:05] VITALS: BP 155/95; PULSE 54; RESP 16; O2SAT 94
== END 2024-11-09 10:29 | disposition home or self-care (01) ==
PROVIDERS: Emergency Provider Emergency Medicine; PCP Family Medicine; Visit Provider Emergency Medicine
DX: S16.1XXA Strain of muscle, fascia and tendon at neck level, initial encounter (principal); G40.909 Epilepsy, unspecified, not intractable, without status epilepticus; F84.0 Autistic disorder; R41.89 Other symptoms and signs involving cognitive functions and awareness; S00.01XA Abrasion of scalp, initial encounter; W01.198A Fall on same level from slipping, tripping and stumbling with subsequent striking against other object, initial encounter; Y92.89 Other specified places as the place of occurrence of the external cause; Z79.899 Other long term (current) drug therapy
CPT/HCPCS: 70450; 72125; 99284

== ENCOUNTER 2024-11-12 13:48 | Emergency (ER) | payer MEDICARE, MEDICAID, SELFPAY ==
[2024-11-12 13:49] VITALS: BP 175/91; PULSE 65; RESP 20; TEMP 36.6; O2SAT 98
[2024-11-12 17:00] VITALS: BP 146/87; PULSE 67; RESP 20; O2SAT 95
--- NOTE | 2024-11-12 17:24 | EDS_ITS ---
HPI History of Present Illness Chief Complaint: Head Injury Narrative Narrative: Patient is a 59-year-old male with past medical history of impulsive control disorder, cognitive impairment, autism, seizure disorder who presented to the emergency department via EMS with a chief complaint of fall hitting his head. According to caregiver at bedside they state that he fell yesterday had a head CT that was normal and was sent home. They state that today he had a fall about 1:00 at the top of the head however the abrasion that is currently there was there yesterday as well. This was unwitnessed. They state this happened around 1:00 this afternoon. They note that the patient is DNR comfort care and do not want any extreme measures done [facility] Medical History Bilateral pneumonia Influenza A Impulse control disorder Skin ulcer of right hip with fat layer exposed Abrasion of hip, right Cellulitis of right upper extremity Constipation Non-smoker Seizures Cognitive impairment Autism Seizure disorder Home Medications ?Medication ?Instructions ?Recorded ?Last Taken ?Type fluticasone propionate 50 1 spray DAILY allergies 06/2604/03/22 History mcg/actuation nasal spray,suspension doxazosin 4 mg tablet 4 mg PO QHS htn 02/10/2207/15 History albuterol sulfate 90 mcg/actuation 2 puff inhalation Q 4H PRN PRN 03/14/22 04/02/22 Rx aerosol inhaler (Ventolin HFA) Wheezing ##1 levetiracetam 500 mg tablet 500 mg PO BID 01/26/23 Unk nown History (Keppra) multivitamin 1 tab PO DAILY 03/08/23 Unkn own History benztropine 0.5 mg tablet mg 11/09/24 Unknown History lactulose 10 gram/15 mL oral ml PO 11/09/24 Unknown Hi story solution Allergy/AdvReac Type Severity Reaction Status Date / Time No Known Allergies Allergy Verified 08/26/24 16:16 Family History Mother Seizures COPD (chronic obstructive pulmonary disease) Father Glaucoma Surgical History History of lingual frenulectomy History of rectal surgery Social History housing: other details: long term. Smoking Status: Never smoker alcohol intake: never substance use type: does not use ROS ROS ED ROS Narrative Insert review of systems is not obtainable from the patient as he is alert and oriented x 1 this is his baseline according to caregiver at bedside EXAM Physical Exam Narrative Exam Narrative: General: Patient lying in bed rest comfortably did not appear to be in acute distress Head: Patient has superficial abrasion noted to the anterior forehead no active bleeding noted normocephalic Eyes: PERRL bilaterally, EOMI bilateral, no conjunctival injection noted Neck: Soft, supple, trachea midline Cardiovascular: Regular rate and rhythm Respiratory: Clear to auscultation bilaterally Abdomen: Soft, nondistended, nontender to palpation Musculoskeletal: No tenderness palpation anywhere all bony prominences palpated Extremities: Patient moving all extremities Neurological: Patient is at baseline according to caregiver at bedside Skin: See head Const Vital Signs: 11/12/24 13:49 11/12/24 17:00 11/12/24 17:00 Temperature 97.9 F Temperature Source Temporal Pulse Rate 65 67 Respiratory Rate 20 H 20 H Respiratory Effort Normal Non-Labored Respiratory Depth Normal Respiratory Pattern Normal Blood Pressure 175/91 H 146/87 H Blood Pressure Mean 119 106 Pulse Ox 98 95 Oxygen Delivery Method Room Air Room Air Room Air MDM MDM MDM Narrative Medical decision making narrative: Patient is a 59-year-old male who presented to the Emergency Department chief complaint of fall hitting his head unwitnessed. Once again I discussed with caregiver bedside he is DNR CC I reviewed his chart and he is confirmed DNR comfort care no extreme measures noted. The fall happened around 1300 today. He is at his baseline according to caregiver bedside. At this point time do not feel that CT head is warranted given his CODE STATUS. Caregiver bedside is agreeable with this plan and states that he just had a head CT yesterday as well was normal. He is not on any blood thinning medications either. They are advised to follow-up with a primary care physician and return with any other concerns. All question concerns answered was discharged home in stable condition. Discharge Plan Triage Chief Complaint: Head Injury ED Provider: Rivera Sanchez Dx/Rx/DC Orders Clinical Impression: Fall Prescriptions: No Action fluticasone propionate 1 SPRAY spray,suspension 1 spray NASAL DAILY doxazosin 4 mg tablet 4 mg PO QHS albuterol sulfate [Ventolin HFA] 90 mcg/actuation HFA aerosol inhaler 2 puff inhalation Q4H PRN PRN (Reason: Wheezing) Qty: 1 0RF Rx Instructions: Dispense with Spacer levetiracetam [Keppra] 500 mg Tablet 500 mg PO BID multivitamin Tablet 1 tab PO DAILY benztropine 0.5 mg tablet Patient Comments: [NO ORIGINAL SIG] lactulose 10 gram/15 mL solution PO Primary Care Provider: Abe Moralez Referrals: Abe Moralez MD [Primary Care Provider] - Activity Restrictions/Additional Instructions: Follow-up with his primary care physician outpatient setting. Return with worsening symptoms or any concerns Print Language: Cymro Disposition Disposition: Home, Self Care
[2024-11-12 18:51] LABS: Bacteria 0 SEEN /hpf (None Seen); Mucous, Urine 0 SEEN /hpf (<or=2+); Squamous Epithelial Cells - UA 0 SEEN /hpf (0-5)
[2024-11-12 18:53] LABS: Color, Urine Yellow (Yellow); Glucose, Dipstick Normal (Normal); Ketone-Dipstick Negative (Negative); Leukocyte Esterase-Dipstick Negative /ul (Negative); Nitrite-Dipstick Negative (Negative); Occult Blood-Urine Negative /ul (Negative); Protein-Dipstick Negative (Negative); Specific Gravity, Urine 1.015 (1.002-1.030); Urine Bilirubin Dipstick Negative (Negative); Urine Clarity Clear (Clear); Urine Urobilinogen Normal (Normal)
[2024-11-12 19:00] VITALS: PULSE 70; RESP 18; O2SAT 100
[2024-11-12 19:08] LABS: Red Blood Cells-Urine 0 SEEN /hpf (0-5); White Blood Cells 0-5 SEEN /hpf (0-5)
[2024-11-12 21:00] VITALS: BP 151/78; PULSE 73; RESP 14; O2SAT 97
[2024-11-12 21:10] VITALS: BP 149/74; PULSE 78; RESP 16; TEMP 36.6; O2SAT 97
[2024-11-12 23:00] VITALS: BP 142/71; PULSE 78; RESP 16; O2SAT 98
== END 2024-11-13 00:32 | disposition home or self-care (01) ==
PROVIDERS: Emergency Provider Emergency Medicine; PCP Family Medicine; Visit Provider Emergency Medicine
DX: S00.81XA Abrasion of other part of head, initial encounter (principal); G40.909 Epilepsy, unspecified, not intractable, without status epilepticus; W19.XXXA Unspecified fall, initial encounter; F84.0 Autistic disorder; R41.89 Other symptoms and signs involving cognitive functions and awareness; F63.9 Impulse disorder, unspecified; K59.00 Constipation, unspecified; Z66 Do not resuscitate; Z79.899 Other long term (current) drug therapy
CPT/HCPCS: 81001; 99284

== ENCOUNTER 2024-11-15 17:22 | Emergency (ER) | payer MEDICARE, MEDICAID, SELFPAY ==
[2024-11-15 17:22] VITALS: BP 126/73; PULSE 62; RESP 17; TEMP 36.6; O2SAT 98
--- NOTE | 2024-11-15 17:37 | EX.ED.UPPERE ---
HPI <FRANCE Polo - Last Filed: 11/15/24 18:14> History of Present Illness Chief Complaint: Upper Extremity Injury Narrative Narrative: 59-year-old male with cognitive delay and seizure history was brought in by a caregiver from his half-way. He fell 3 days ago when getting up from the toilet and hit his right shoulder. No head injury. Today he was working with his occupational therapist and complained of right shoulder pain so was brought in for evaluation. He is not on blood thinners. [facility] <FRANCE Polo - Last Filed: 11/15/24 18:14> [facility] Medical History Bilateral pneumonia Influenza A Impulse control disorder Skin ulcer of right hip with fat layer exposed Abrasion of hip, right Cellulitis of right upper extremity Constipation Non-smoker Seizures Cognitive impairment Autism Seizure disorder Home Medications ?Medication ?Instructions ?Recorded ?Last Taken ?Type fluticasone propionate 50 1 spray DAILY allergies 07/24/16 04/03/22 History mcg/actuation nasal spray,suspension doxazosin 4 mg tablet 4 mg PO QHS htn 02/10/22 04/02/22 History albuterol sulfate 90 mcg/actuation 2 puff inhalation Q4H PRN PRN 03/14/22 04/02/22 Rx aerosol inhaler (Ventolin HFA) Wheezing ##1 levetiracetam 500 mg tablet 500 mg PO BID 01/26/23 Unknown History (Keppra) multivitamin 1 tab PO DAILY 03/08/23 Unknown History benztropine 0.5 mg tablet mg 11/09/24 Unknown History lactulose 10 gram/15 mL oral ml PO 11/09/24 Unknown History solution Allergy/AdvReac Type Severity Reaction Status Date / Time No Known Allergies Allergy Verified 11/15/24 17:22 Family History Mother Seizures COPD (chronic obstructive pulmonary disease) Father Glaucoma Surgical History History of lingual frenulectomy History of rectal surgery Social History housing: other details: nursing home. Smoking Status: Never smoker alcohol intake: never substance use type: does not use ROS <FRANCE Polo - Last Filed: 11/15/24 18:14> ROS ED ROS Narrative Positive for right shoulder pain, trauma. No chest pain, headache, vomiting. EXAM <FRANCE Polo - Last Filed: 11/15/24 18:14> Physical Exam Narrative Exam Narrative: CONST: Patient sitting in no acute distress. EYES: Normal inspection. NECK: Normal inspection. RESP: No respiratory distress, CTAB. CVS: Regular rate and rhythm, no murmur, no gallop. SKIN: Color normal, no rash, warm, dry, intact. EXTREMITIES: Normal appearance, tender over right anterior shoulder. No deformity or crepitus. No bony tenderness of the elbow forearm wrist or hand. 2+ radial pulse and brisk cap refill. He is able to range his shoulder above 90 degrees. NEURO: Cognitive delay. Alert and answering questions appropriately. PSYCH: Normal affect. Const Vital Signs: 11/15/24 17:22 Temperature 97.9 F Temperature Source Temporal Pulse Rate 62 Respiratory Rate 17 Blood Pressure 126/73 H Blood Pressure Mean 90 Pulse Ox 98 Oxygen Delivery Method Room Air MDM <FRANCE Polo - Last Filed: 11/15/24 18:14> [facility] Narrative Medical decision making narrative: History gathered from: Patient's caregiver Differential includes shoulder contusion, fracture, AC joint sprain 59-year-old male with cognitive delay from a half-way fell 3 days ago when getting off the toilet hitting his right shoulder presents with pain. He is mildly tender over the anterior shoulder without signs of trauma or deformity. He has range of motion and is neurovascularly intact. X-ray shows no fracture or dislocation. The read mentioned right basilar opacities which could be atelectasis or infiltrate. He does not have a fever or cough so I suspect this is atelectasis. I recommended ice and Tylenol as needed and he was discharged in stable condition. Radiography Diagnostic Testing: ED attending interpretation of right shoulder shows no fracture or dislocation. <Larry Daniel MD - Last Filed: 11/15/24 18:40> [facility] Narrative Medical decision making narrative: History gathered from: Patient's caregiver Differential includes shoulder contusion, fracture, AC joint sprain 59-year-old male with cognitive delay from a half-way fell 3 days ago when getting off the toilet hitting his right shoulder presents with pain. He is mildly tender over the anterior shoulder without signs of trauma or deformity. He has range of motion and is neurovascularly intact. X-ray shows no fracture or dislocation as interpreted independently by ED physician. The read mentioned right basilar opacities which could be atelectasis or infiltrate. He does not have a fever or cough so I suspect this is atelectasis. I recommended ice and Tylenol as needed and he was discharged in stable condition. Radiography X-Ray: Read by ED Physician, Read by Radiologist and No Fracture Treatment and Re-Evaluation Narrative: Dr. Daniel: I have personally performed a face to face assessment of the patient and have reviewed the DEEPIKA Note. I performed a substantive portion of the visit including all aspects of the following. My abdi findings include: History is fall 3 days ago getting off toilet. Complained of right shoulder pain today. Exam is afebrile. Vital signs noted. GCS 15. ABCs intact. Consistent with autism. Mild tenderness to palpation right shoulder. No clinical dislocation. Medical Decision Making: Check x-rays. X-rays interpreted by myself independently shows no evidence of fracture or acute dislocation. Patient given an ice pack for comfort. Continue [id number] medications for analgesia. Discharge. Other additions or changes: [None] Discharge Plan Triage Chief Complaint: Upper Extremity Injury ED Midlevel Provider: Lindsey Chandler ED Provider: Larry Daniel Dx/Rx/DC Orders Clinical Impression: Acute pain of right shoulder, Fall Instructions: Bruises (Contusions) Prescriptions: No Action fluticasone propionate 1 SPRAY spray,suspension 1 spray NASAL DAILY doxazosin 4 mg tablet 4 mg PO QHS albuterol sulfate [Ventolin HFA] 90 mcg/actuation HFA aerosol inhaler 2 puff inhalation Q4H PRN PRN (Reason: Wheezing) Qty: 1 0RF Rx Instructions: Dispense with Spacer levetiracetam [Keppra] 500 mg Tablet 500 mg PO BID multivitamin Tablet 1 tab PO DAILY benztropine 0.5 mg tablet Patient Comments: [NO ORIGINAL SIG] lactulose 10 gram/15 mL solution PO Primary Care Provider: Abe Moralez Referrals: Abe Moralez MD [Primary Care Provider] - Activity Restrictions/Additional Instructions: The x-ray of your shoulder shows no broken bones. Take Tylenol as needed for pain. Print Language: Chilean Disposition Disposition: Home, Self Care Discharge Date/Time: 11/15/24 18:21
--- NOTE | 2024-11-15 17:45 | RAD_ITS ---
PROCEDURE: Right shoulder radiographs REASON FOR EXAM: Pain TECHNIQUE: Five views of the right shoulder COMPARISON: None. FINDINGS: See impression RAD/Shoulder min 2 Views IMPRESSION: Negative for acute fracture or malalignment. Mild acromioclavicular joint oste oarthritis. Mild right basilar pulmonary opacities which may relate to atelectasis or infiltrate. Reading Location: [facility]
== END 2024-11-15 18:21 | disposition home or self-care (01) ==
PROVIDERS: Emergency Provider Emergency Medicine; PCP Family Medicine; Visit Provider Emergency Medicine
DX: M25.511 Pain in right shoulder (principal); G40.909 Epilepsy, unspecified, not intractable, without status epilepticus; W18.12XA Fall from or off toilet with subsequent striking against object, initial encounter; Y92.009 Unspecified place in unspecified non-institutional (private) residence as the place of occurrence of the external cause; F84.0 Autistic disorder; R41.89 Other symptoms and signs involving cognitive functions and awareness; K59.00 Constipation, unspecified; Z79.899 Other long term (current) drug therapy
CPT/HCPCS: 73030; 99282

== ENCOUNTER 2024-11-17 09:09 | Outpatient (RCR) | payer MEDICARE, MEDICAID, SELFPAY ==
[2024-10-27 07:03] LABS: Absolute Lymphocyte Count 1.46 X10^3/uL (0.83-4.51); Absolute Neutrophil Count 2.5 X10^3/uL (2.0-7.7); Basophil# 0.05 X10^3/uL; Basophil% 1.1 % (0-1); Eosinophil# 0.12 X10^3/uL; Eosinophils% 2.6 % (0-5); Hematocrit 44.2 % (40-54); Hemoglobin 14.8 g/dL (13.0-16.5); Lymphocyte # 1.46 X10^3/ul (0.83-4.51); Lymphocyte % 31.9 % (19-41); Mean Corp Hgb Conc 33.5 g/dL (32-36); Mean Corpuscular Hgb 29.5 pg (27.0-32.0); Mean Platelet Vol. 10.7 fl (6.2-12.0); Monocyte# 0.43 X10^3/uL; Monocyte% 9.4 % (0-10); NRBC Flagged by Analyzer 0 % (0-5); Neutrophil # 2.52 X10^3/uL (2.7-7.7); Platelet Count 154 K/mm3 (150-450); RBC Distribution Width CV 13.2 % (11.6-14.6); RBC Distribution Width SD 41.7 fl (35.1-43.9); Red Blood Count 5.02 M/mm3 (4.6-6.2); White Blood Count 4.6 K/mm3 (4.4-11.0)
[2024-11-03 12:33] LABS: Absolute Lymphocyte Count 1.15 X10^3/uL (0.83-4.51); Absolute Neutrophil Count 2.3 X10^3/uL (2.0-7.7); Basophil# 0.05 X10^3/uL; Basophil% 1.3 % (0-1); Eosinophil# 0.17 X10^3/uL; Eosinophils% 4.3 % (0-5); Hematocrit 48.9 % (40-54); Hemoglobin 16.2 g/dL (13.0-16.5); Lymphocyte # 1.15 X10^3/ul (0.83-4.51); Mean Corp Hgb Conc 33.1 g/dL (32-36); Mean Corpuscular Hgb 29.9 pg (27.0-32.0); Mean Corpuscular Volume 90.4 fL (80-94); Mean Platelet Vol. 11.7 fl (6.2-12.0); Monocyte# 0.29 X10^3/uL; Monocyte% 7.3 % (0-10); NRBC Flagged by Analyzer 0 % (0-5); Neutrophil % 57.8 % (47-70); Platelet Count 147 K/mm3 (150-450); RBC Distribution Width CV 13.2 % (11.6-14.6); RBC Distribution Width SD 43.3 fl (35.1-43.9); Red Blood Count 5.41 M/mm3 (4.6-6.2)
[2024-11-11 12:49] LABS: Absolute Lymphocyte Count 1.06 X10^3/uL (0.83-4.51); Absolute Neutrophil Count 2.9 X10^3/uL (2.0-7.7); Basophil# 0.04 X10^3/uL; Basophil% 0.9 % (0-1); Eosinophils% 4.3 % (0-5); Hematocrit 50.3 % (40-54); Lymphocyte # 1.06 X10^3/ul (0.83-4.51); Mean Corp Hgb Conc 31.8 g/dL (32-36); Mean Corpuscular Hgb 29.2 pg (27.0-32.0); Mean Corpuscular Volume 91.8 fL (80-94); Mean Platelet Vol. 11.7 fl (6.2-12.0); Monocyte# 0.43 X10^3/uL; Monocyte% 9.3 % (0-10); NRBC Flagged by Analyzer 0 % (0-5); Neutrophil # 2.87 X10^3/uL (2.7-7.7); Neutrophil % 62.3 % (47-70); Platelet Count 160 K/mm3 (150-450); RBC Distribution Width CV 13.2 % (11.6-14.6); RBC Distribution Width SD 44.6 fl (35.1-43.9); Red Blood Count 5.48 M/mm3 (4.6-6.2); White Blood Count 4.6 K/mm3 (4.4-11.0)
[2024-11-17 12:52] LABS: Absolute Neutrophil Count 2.6 X10^3/uL (2.0-7.7); Basophil# 0.04 X10^3/uL; Basophil% 0.9 % (0-1); Eosinophil# 0.17 X10^3/uL; Eosinophils% 3.9 % (0-5); Hematocrit 49.8 % (40-54); Hemoglobin 16.1 g/dL (13.0-16.5); Lymphocyte % 27.5 % (19-41); Mean Corp Hgb Conc 32.3 g/dL (32-36); Mean Corpuscular Hgb 29.9 pg (27.0-32.0); Mean Corpuscular Volume 92.6 fL (80-94); Mean Platelet Vol. 11.4 fl (6.2-12.0); Monocyte# 0.33 X10^3/uL; Monocyte% 7.6 % (0-10); NRBC Flagged by Analyzer 0 % (0-5); Neutrophil # 2.62 X10^3/uL (2.7-7.7); Neutrophil % 59.9 % (47-70); Platelet Count 157 K/mm3 (150-450); RBC Distribution Width SD 44.1 fl (35.1-43.9); Red Blood Count 5.38 M/mm3 (4.6-6.2); White Blood Count 4.4 K/mm3 (4.4-11.0)
== END 2024-11-21 23:59 ==
LOC: LABSPEC 09:09
PROVIDERS: PCP Family Medicine; Referring Provider Internal Medicine; Visit Provider Internal Medicine
DX: F29 Unspecified psychosis not due to a substance or known physiological condition (principal)
CPT/HCPCS: 85025

== ENCOUNTER → 2024-12-16 | Outpatient (CLI) | payer MEDICARE, MEDICAID, SELFPAY ==
[2024-12-16 17:27] LABS: PSA,Total- Diagnostic 0.51 ng/mL (0.00-4.00)
== END | disposition home or self-care (01) ==
LOC: LAB 14:08
PROVIDERS: PCP Family Medicine; Referring Provider Urology; Visit Provider Urology
DX: R97.20 Elevated prostate specific antigen [PSA] (principal)
CPT/HCPCS: 36415; 84153

== ENCOUNTER 2024-12-22 09:12 | Outpatient (RCR) | payer MEDICARE, MEDICAID, SELFPAY ==
[2024-11-24 16:16] LABS: Absolute Lymphocyte Count 0.96 X10^3/uL (0.83-4.51); Absolute Neutrophil Count 3.7 X10^3/uL (2.0-7.7); Basophil# 0.04 X10^3/uL; Basophil% 0.7 % (0-1); Eosinophil# 0.15 X10^3/uL; Eosinophils% 2.8 % (0-5); Hemoglobin 16.6 g/dL (13.0-16.5); Lymphocyte # 0.96 X10^3/ul (0.83-4.51); Lymphocyte % 17.7 % (19-41); Mean Corp Hgb Conc 32.5 g/dL (32-36); Mean Corpuscular Hgb 29.6 pg (27.0-32.0); Mean Corpuscular Volume 91.1 fL (80-94); Mean Platelet Vol. 11.3 fl (6.2-12.0); Monocyte# 0.54 X10^3/uL; NRBC Flagged by Analyzer 0 % (0-5); Neutrophil # 3.71 X10^3/uL (2.7-7.7); Neutrophil % 68.6 % (47-70); Platelet Count 163 K/mm3 (150-450); RBC Distribution Width CV 13.2 % (11.6-14.6); White Blood Count 5.4 K/mm3 (4.4-11.0)
[2024-12-01 12:49] LABS: Hematocrit 50.1 % (40-54); Hemoglobin 16.5 g/dL (13.0-16.5); Mean Corp Hgb Conc 32.9 g/dL (32-36); Mean Corpuscular Hgb 29.8 pg (27.0-32.0); Mean Corpuscular Volume 90.6 fL (80-94); Mean Platelet Vol. 11.3 fl (6.2-12.0); Neutrophil % 64.6 % (47-70); Platelet Count 158 K/mm3 (150-450); RBC Distribution Width CV 13.2 % (11.6-14.6); RBC Distribution Width SD 43.7 fl (35.1-43.9); Red Blood Count 5.53 M/mm3 (4.6-6.2); White Blood Count 5.2 K/mm3 (4.4-11.0)
[2024-12-01 12:50] LABS: Absolute Lymphocyte Count 1.16 X10^3/uL (0.83-4.51); Absolute Neutrophil Count 3.4 X10^3/uL (2.0-7.7); Basophil# 0.04 X10^3/uL; Basophil% 0.8 % (0-1); Eosinophil# 0.12 X10^3/uL; Eosinophils% 2.3 % (0-5); Lymphocyte # 1.16 X10^3/ul (0.83-4.51); Lymphocyte % 22.3 % (19-41); Monocyte# 0.51 X10^3/uL; Monocyte% 9.8 % (0-10); NRBC Flagged by Analyzer 0 % (0-5); Neutrophil # 3.37 X10^3/uL (2.7-7.7)
[2024-12-08 12:54] LABS: Absolute Lymphocyte Count 1.24 X10^3/uL (0.83-4.51); Absolute Neutrophil Count 3.3 X10^3/uL (2.0-7.7); Basophil# 0.04 X10^3/uL; Basophil% 0.7 % (0-1); Eosinophil# 0.31 X10^3/uL; Eosinophils% 5.7 % (0-5); Hematocrit 46.5 % (40-54); Hemoglobin 15.6 g/dL (13.0-16.5); Lymphocyte # 1.24 X10^3/ul (0.83-4.51); Mean Corp Hgb Conc 33.5 g/dL (32-36); Mean Corpuscular Hgb 30.4 pg (27.0-32.0); Mean Corpuscular Volume 90.5 fL (80-94); Mean Platelet Vol. 11.9 fl (6.2-12.0); Monocyte# 0.52 X10^3/uL; Monocyte% 9.6 % (0-10); NRBC Flagged by Analyzer 0 % (0-5); Neutrophil # 3.26 X10^3/uL (2.7-7.7); Neutrophil % 60.4 % (47-70); Platelet Count 162 K/mm3 (150-450); Red Blood Count 5.14 M/mm3 (4.6-6.2); White Blood Count 5.4 K/mm3 (4.4-11.0)
[2024-12-15 12:43] LABS: Absolute Lymphocyte Count 1.07 X10^3/uL (0.83-4.51); Absolute Neutrophil Count 4.1 X10^3/uL (2.0-7.7); Basophil# 0.04 X10^3/uL; Basophil% 0.7 % (0-1); Eosinophil# 0.19 X10^3/uL; Eosinophils% 3.2 % (0-5); Hematocrit 46.3 % (40-54); Hemoglobin 15.4 g/dL (13.0-16.5); Lymphocyte # 1.07 X10^3/ul (0.83-4.51); Lymphocyte % 18.2 % (19-41); Mean Corp Hgb Conc 33.3 g/dL (32-36); Mean Corpuscular Hgb 30.2 pg (27.0-32.0); Mean Corpuscular Volume 90.8 fL (80-94); Mean Platelet Vol. 11.4 fl (6.2-12.0); Monocyte# 0.46 X10^3/uL; Monocyte% 7.8 % (0-10); NRBC Flagged by Analyzer 0 % (0-5); Neutrophil # 4.08 X10^3/uL (2.7-7.7); Neutrophil % 69.6 % (47-70); Platelet Count 176 K/mm3 (150-450); RBC Distribution Width CV 12.9 % (11.6-14.6); RBC Distribution Width SD 42.5 fl (35.1-43.9); White Blood Count 5.9 K/mm3 (4.4-11.0)
[2024-12-22 12:36] LABS: Absolute Lymphocyte Count 1.22 X10^3/uL (0.83-4.51); Absolute Neutrophil Count 3.1 X10^3/uL (2.0-7.7); Basophil# 0.04 X10^3/uL; Basophil% 0.8 % (0-1); Eosinophil# 0.24 X10^3/uL; Eosinophils% 4.8 % (0-5); Hematocrit 46.5 % (40-54); Hemoglobin 15.6 g/dL (13.0-16.5); Lymphocyte # 1.22 X10^3/ul (0.83-4.51); Lymphocyte % 24.4 % (19-41); Mean Corp Hgb Conc 33.5 g/dL (32-36); Mean Corpuscular Hgb 30.4 pg (27.0-32.0); Mean Corpuscular Volume 90.5 fL (80-94); Monocyte# 0.41 X10^3/uL; Monocyte% 8.2 % (0-10); NRBC Flagged by Analyzer 0 % (0-5); Neutrophil # 3.07 X10^3/uL (2.7-7.7); Neutrophil % 61.4 % (47-70); Platelet Count 185 K/mm3 (150-450); RBC Distribution Width CV 12.9 % (11.6-14.6); RBC Distribution Width SD 41.9 fl (35.1-43.9); Red Blood Count 5.14 M/mm3 (4.6-6.2)
== END 2024-12-22 23:59 ==
LOC: LABSPEC 09:12
PROVIDERS: PCP Family Medicine; Referring Provider Internal Medicine; Visit Provider Internal Medicine
DX: R45.1 Restlessness and agitation; F41.9 Anxiety disorder, unspecified
CPT/HCPCS: 85025

== ENCOUNTER 2025-01-07 12:46 | Day surgery (SDC) | payer MEDICARE, MEDICAID, SELFPAY ==
--- NOTE | 2025-01-05 16:41 | PAT.ANESEVAL ---
Pre-Assessment Diagnosis/Proposed Procedure Planned Operative Procedure(s): TURP Anesthesia History Anesthesia History - machine scallop cutter: Anesthesia History - machine scallop cutter Hx Hospitalization No 01/05/25 15:43 Any Problems With Anesthesia No 01/05/25 15:43 Cholinesterase deficiency No 01/05/25 15:43 You/Your Family Experience No 01/05/25 15:43 fever (hyperthermia) with Relationship Recent Exposure to Contagious Disease Does patient have nerve No 01/05/25 15:43 stimulator Patient instructed to have device shut off --Does patient have Pacemaker or ICD? When Was Last Pacemaker Check QUESTION #4 FULL TEXT: You/Your Family Experience fever (hyperthermia) with Anesthesia Last Oral Intake Last Oral intake: Last Oral Intake NPO since Meds taken in AM with sips of water? Meds patient instructed to take am of surgery PONV PONV - machine scallop cutter: PONV - machine scallop cutter Female No 01/05/25 15:43 HX of Motion Sickness No 01/05/25 15:43 HX of N/V After Surgery No 01/05/25 15:43 Non-Smoker Yes 01/05/25 15:43 Duration of Surgery greater Yes 01/05/25 15:43 than 60 minutes Number of Risk Factors 2 01/05/25 15:43 PONV Score Moderate Risk 01/05/25 15:43 Height & Weight Height & Weight: Anesthesia: Height & Weight Height 6 ft 01/01/25 15:36 Respiratory Assessment Respiratory Assessment - machine scallop cutter: Respiratory Tract Infection Hx - machine scallop cutter Hx Respiratory Tract Infection No 01/05/25 15:43 STOP Sleep Apnea STOP Sleep Apnea - machine scallop cutter: STOP Sleep Apnea - machine scallop cutter Hx Hypertension No 01/05/25 15:43 Hx Sleep Apnea No 01/05/25 15:43 CPAP No 09/13/23 13:56 BIPAP Do you snore loudly (louder No 01/05/25 15:43 than talking or can be heard Do you often feel tired/ No 01/05/25 15:43 fatigued/ sleepy during daytime? Has anyone observed you stop No 01/05/25 15:43 breathing during sleep? STOP Results Negative 01/05/25 15:43 QUESTION #5 FULL TEXT : Do you snore loudly (louder than talking or can be heard through closed doors)? 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 Specify any problems Hx of Preganancy in last 3 N/A 01/05/25 15:43 Months Nurse Filling Out Transfusion NBUCHER 01/05/25 15:43 & Questions: Date: 01/05/25 01/05/25 15:43 Time: 15:44 01/05/25 15:43 Patient unable to answer at this time (ie. confused, unrespo /Reproduction History /Reproductive History - machine scallop cutter: /Reproductive Hx- machine scallop cutter Hx Now No 01/05/25 15:43 Gestational Age (in weeks): EDC: Hx Hx Para Hx Section SAB No 01/05/25 15:43 [facility] Medical History (Updated 01/05/25 @ 16:04 by Shea Galarza) Wears dentures Uses wheelchair Indwelling urethral catheter present Dietary restriction Difficulty swallowing Bilateral pneumonia Influenza A Impulse control disorder Skin ulcer of right hip with fat layer exposed Abrasion of hip, right Cellulitis of right upper extremity Constipation Non-smoker Seizures Cognitive impairment Autism Seizure disorder Home Medications ?Medication ?Instructions ?Recorded ?Last Taken ?Type fluticasone propionate 50 1 spray DAILY allergies 07/24/16 04/03/22 History mcg/actuation nasal spray,suspension doxazosin 4 mg tablet 4 mg PO BID 02/10/22 04/02/22 History albuterol sulfate 90 mcg/actuation 2 puff inhalation Q4H PRN PRN 03/14/22 04/02/22 Rx aerosol inhaler (Ventolin HFA) Wheezing ##1 levetiracetam 500 mg tablet 500 mg PO BID 01/26/23 Unknown History (Keppra) multivitamin 1 tab PO DAILY 03/08/23 Unknown History benztropine 0.5 mg tablet 1 mg PO BID 11/09/24 Unknown History lactulose 10 gram/15 mL oral 30 ml PO TID 11/09/24 Unknown History solution acetaminophen 500 mg tablet 500 mg PO BID PRN PRN pain 01/05/25 Unknown History clozapine 200 mg tablet 200 mg PO QHS 01/05/25 Unknown History docusate sodium 100 mg capsule 200 mg PO BID 01/05/25 Unknown History finasteride 5 mg tablet 5 mg PO DAILY 01/05/25 Unknown History guaifenesin 600 mg tablet, 1,200 mg PO BID PRN COLD/ALLERGY 01/05/25 Unknown History extended release 12 hr SYMPTOMS peg 400-propylene glycol (PF) 0.4 2 drp EACH EYE BID 01/05/25 Unknown History %-0.3 % eye drops in a dropperette (Lubricant Eye (PG-PEG 400) (PF)) polyethylene glycol 3350 17 17 g PO DAILY 01/05/25 Unknown History gram/dose oral powder Allergy/AdvReac Type Severity Reaction Status Date / Time No Known Allergies Allergy Verified 01/05/25 15:36 Family History Mother Seizures COPD (chronic obstructive pulmonary disease) Father Glaucoma Surgical History (Updated 01/05/25 @ 16:04 by Shea Galarza) History of evisceration of eye (~04/2012) History of lingual frenulectomy History of rectal surgery Social History housing: other details: detention. Smoking Status: Never smoker alcohol intake: never substance use type: does not use Audit: Pertinent Findings Pertinent Findings EKG Perinent findings: 09/13/2023. Sinus bradycardia 53 bpm. Right bundle branch block. Echo (EF%) pertinent findings: 02/10/2022. EF 60%. Recommendation Anesthesia Recommendation Anesthesia recommendation: OPTIMIZED for anesthesia
[2025-01-07] VITALS (11 sets, daily range): BP systolic 111–151; BP diastolic 72–97; PULSE 53–65; RESP 16–18; TEMP 36.1–36.8; O2SAT 93–100; BMI 28.4
--- NOTE | 2025-01-07 12:49 | EKG12_ITS ---
Test Reason : PREOP Blood Pressure : */* mmHG Vent. Rate : 65 BPM Atrial Rate : 65 BPM P-R Int : 170 ms QRS Dur : 152 ms QT Int : 432 ms P-R-T Axes : 20 -88 33 degrees QTcB Int : 449 ms Normal sinus rhythm Right bundle branch block Left anterior fascicular block Bifascicular block Abnormal ECG When compared with ECG of 13-Sep-2023 09:13, Left anterior fascicular block is now Present Confirmed by Cosme Reyes ([id number]), restaurant expeditor BLANCO GUTIERREZ ([id number]) on 01/12/2025 8:50:12 AM Referred By: Herminio Moss Confirmed By: Cosme Reyes
--- NOTE | 2025-01-07 12:53 | PRE.ANES_ITS ---
ASA Classification* ASA Classification ASA Classification: 3 Assessment & Plan Anesthesia* Anesthesia Assessment Anesthesia Assessment: Discussed sedation and/or anesthesia options, risks, benefits, and alternatives with patient/parents/legal guardian/POA. Questions invited. The patient/parents/legal guardian/POA seems to understand and agrees to proceed with anesthesia plan. Reviewed the physical assessment, medical history, allergy history and patient home medications list prior to surgery/procedure/anesthetic and documented any changes. Performed airway and anesthesia risk assessments. Anesthesia Type Anesthesia Type: General Anesthesia Focused Assessment* Airway Assessment Mouth opens: >3 cm Mallampati Score: II Focused Labs Anesthesia Preop lab: CBC WBC 4.3 K/mm3 (4.4-11.0) L 01/05/25 08:30 01/05/25 RBC 5.10 M/mm3 (4.6-6.2) 01/05/25 08:30 01/05/25 Hgb 15.1 g/dL (13.0-16.5) 01/05/25 08:30 01/05/25 Hct 46.3 % (40-54) 01/05/25 08:30 01/05/25 Plt Count 153 K/mm3 (150-450) 01/05/25 08:30 01/05/25 CHEMISTRY Potassium 4.3 mmol/L (3.5-5.1) 08/26/24 17:48 08/26/24 Sodium 140 mmol/L (136-145) 08/26/24 17:48 08/26/24 Magnesium 1.6 mg/dL (1.6-2.6) 01/27/23 05:30 01/27/23 Phosphorus 2.6 mg/dL (2.5-4.9) 01/27/23 05:30 01/27/23 BUN 14 mg/dL (7-18) 08/26/24 17:48 08/26/24 Creatinine 0.74 mg/dL (0.70-1.30) 08/26/24 17:48 08/26/24 Glucose 95 mg/dL (74-106) 08/26/24 17:48 08/26/24 POC Glucose 112 mg/dL (74-106) H 02/17/22 03:44 02/17/22 TSH 0.56 uIU/mL (0.358-3.74) 02/11/22 05:12 COAG PT 13.9 SECONDS (11.7-14.9) 02/10/22 11:10 Pre-Assessment Diagnosis/Proposed Procedure Planned Operative Procedure(s): TURP Anesthesia History Anesthesia History - galvanizing pot runner: Anesthesia History - galvanizing pot runner Hx Hospitalization No 01/05/25 15:43 Any Problems With Anesthesia No 01/05/25 15:43 Cholinesterase deficiency No 01/05/25 15:43 You/Your Family Experience No 01/05/25 15:43 fever (hyperthermia) with Relationship Recent Exposure to Contagious Disease Does patient have nerve No 01/05/25 15:43 stimulator Patient instructed to have device shut off --Does patient have Pacemaker or ICD? When Was Last Pacemaker Check QUESTION #4 FULL TEXT: You/Your Family Experience fever (hyperthermia) with Anesthesia Last Oral Intake Last Oral intake: Last Oral Intake NPO since Meds taken in AM with sips of water? Meds patient instructed to take am of surgery PONV PONV - galvanizing pot runner: PONV - galvanizing pot runner Female No 01/05/25 15:43 HX of Motion Sickness No 01/05/25 15:43 HX of N/V After Surgery No 01/05/25 15:43 Non-Smoker Yes 01/05/25 15:43 Duration of Surgery greater Yes 01/05/25 15:43 than 60 minutes Number of Risk Factors 2 01/05/25 15:43 PONV Score Moderate Risk 01/05/25 15:43 Height & Weight Height & Weight: Anesthesia: Height & Weight Height 6 ft 01/01/25 15:36 Respiratory Assessment Respiratory Assessment - galvanizing pot runner: Respiratory Tract Infection Hx - galvanizing pot runner Hx Respiratory Tract Infection No 01/05/25 15:43 STOP Sleep Apnea STOP Sleep Apnea - galvanizing pot runner: STOP Sleep Apnea - galvanizing pot runner Hx Hypertension No 01/05/25 15:43 Hx Sleep Apnea No 01/05/25 15:43 CPAP No 09/13/23 13:56 BIPAP Do you snore loudly (louder No 01/05/25 15:43 than talking or can be heard Do you often feel tired/ No 01/05/25 15:43 fatigued/ sleepy during daytime? Has anyone observed you stop No 01/05/25 15:43 breathing during sleep? STOP Results Negative 01/05/25 15:43 QUESTION #5 FULL TEXT : Do you snore loudly (louder than talking or can be heard through closed doors)? 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 Specify any problems Hx of Preganancy in last 3 N/A 01/05/25 15:43 Months Nurse Filling Out Transfusion NBUCHER 01/05/25 15:43 & Questions: Date: 01/05/25 01/05/25 15:43 Time: 15:44 01/05/25 15:43 Patient unable to answer at this time (ie. confused, unrespo /Reproduction History /Reproductive History - galvanizing pot runner: /Reproductive Hx- galvanizing pot runner Hx Now No 01/05/25 15:43 Gestational Age (in weeks): EDC: Hx Hx Para Hx Section SAB No 01/05/25 15:43 Active Medications Active Medications: Current Medications Generic Name Dose Route Start Last Admin Trade Name Freq PRN Reason Stop Dose Admin Cefazolin Sodium 2 gm/ N/A 20 mls @ 400 mls/hr 01/07/25 14:40 IV 01/07/25 14:42 X1 [facility] Medical History Wears dentures Uses wheelchair Indwelling urethral catheter present Dietary restriction Difficulty swallowing Bilateral pneumonia Influenza A Impulse control disorder Skin ulcer of right hip with fat layer exposed Abrasion of hip, right Cellulitis of right upper extremity Constipation Non-smoker Seizures Cognitive impairment Autism Seizure disorder Home Medications ?Medication ?Instructions ?Recorded ?Last Taken ?Type fluticasone propionate 50 1 spray DAILY allergies 06/2604/03/22 History mcg/actuation nasal spray,suspension doxazosin 4 mg tablet 4 mg PO BID 02/10/22 2 History albuterol sulfate 90 mcg/actuation 2 puff inhalation Q 4H PRN PRN 03/14/22 04/02/22 Rx aerosol inhaler (Ventolin HFA) Wheezing ##1 levetiracetam 500 mg tablet 500 mg PO BID 01/26/23 Unk nown History (Keppra) multivitamin 1 tab PO DAILY 03/08/23 Unkn own History benztropine 0.5 mg tablet 1 mg PO BID 11/09/24 Unknown History lactulose 10 gram/15 mL oral 30 ml PO TID 11/09/24 Unk nown History solution acetaminophen 500 mg tablet 500 mg PO BID PRN PRN pain 01/05/25 Unknown History clozapine 200 mg tablet 200 mg PO QHS 01/05/25 Unkno wn History docusate sodium 100 mg capsule 200 mg PO BID 01/05/25 Unknown History finasteride 5 mg tablet 5 mg PO DAILY 01/05/25 Unkno wn History guaifenesin 600 mg tablet, 1,200 mg PO BID PRN COLD/AL LERGY 01/05/25 Unknown History extended release 12 hr SYMPTOMS peg 400-propylene glycol (PF) 0.4 2 drp EACH EYE BID 0 01/05/25 Unknown History %-0.3 % eye drops in a dropperette (Lubricant Eye (PG-PEG 400) (PF)) polyethylene glycol 3350 17 17 g PO DAILY 01/05/25 Unk nown History gram/dose oral powder Allergy/AdvReac Type Severity Reaction Status Date / Time No Known Allergies Allergy Verified 01/05/25 15:36 Family History Mother Seizures COPD (chronic obstructive pulmonary disease) Father Glaucoma Surgical History History of evisceration of eye (~04/2012) History of lingual frenulectomy History of rectal surgery Social History housing: other details: half-way. Smoking Status: Never smoker alcohol intake: never substance use type: does not use Review of Systems (Anesthesia) ROS Narrative System reviewed and no additional complaints, except as documented.
[2025-01-07] MEDS: 0.9% Normal Saline (1000mL) 1,000 ML 15 ML IV (13:32)
--- NOTE | 2025-01-07 13:55 | PCM.HP.STD ---
HPI - General General Date of Service: 01/07/25 Chief Complaint: Retention of urine HPI Narrative MORE SALAZAR, is a 59 M who presents for a TURP he has a history of cognitive impairment autism has developed retention of urine. Organ to proceed with a cystoscopy diagnostic and TURP it is possible that the TURP may not alleviate his urinary retention his urinary retention could be functional he may not have obstruction because of his impairment was not able to do a preoperative cystoscopy to evaluate but organ to proceed with cystoscopy and a TURP and hopefully this will alleviate his retention of urine but there is no guarantees. [facility] Medical History Wears dentures Uses wheelchair Indwelling urethral catheter present Dietary restriction Difficulty swallowing Bilateral pneumonia Influenza A Impulse control disorder Skin ulcer of right hip with fat layer exposed Abrasion of hip, right Cellulitis of right upper extremity Constipation Non-smoker Seizures Cognitive impairment Autism Seizure disorder Home Medications ?Medication ?Instructions ?Recorded ?Last Taken ?Type fluticasone propionate 50 1 spray BID allergies 07/24/16 01/07/25 History mcg/actuation nasal spray,suspension doxazosin 4 mg tablet 4 mg PO BID 02/10/22 01/07/25 History albuterol sulfate 90 mcg/actuation 2 puff inhalation Q4H PRN PRN 03/14/22 04/02/22 Rx aerosol inhaler (Ventolin HFA) Wheezing ##1 levetiracetam 500 mg tablet 500 mg PO BID 01/26/23 01/07/25 History (Keppra) multivitamin 1 tab PO DAILY 03/08/23 01/07/25 History benztropine 0.5 mg tablet 1 mg PO BID 11/09/24 01/06/25 History lactulose 10 gram/15 mL oral 30 ml PO TID 11/09/24 01/06/25 History solution acetaminophen 500 mg tablet 500 mg PO BID PRN PRN pain 01/05/25 01/06/25 History clozapine 200 mg tablet 200 mg PO BID 01/05/25 01/07/25 History docusate sodium 100 mg capsule 200 mg PO BID 01/05/25 01/06/25 History finasteride 5 mg tablet 5 mg PO DAILY 01/05/25 01/07/25 History guaifenesin 600 mg tablet, 1,200 mg PO BID PRN COLD/ALLERGY 01/05/25 Unknown History extended release 12 hr SYMPTOMS peg 400-propylene glycol (PF) 0.4 2 drp EACH EYE BID 01/05/25 01/07/25 History %-0.3 % eye drops in a dropperette (Lubricant Eye (PG-PEG 400) (PF)) polyethylene glycol 3350 17 17 g PO DAILY 01/05/25 01/06/25 History gram/dose oral powder Allergy/AdvReac Type Severity Reaction Status Date / Time No Known Allergies Allergy Verified 01/07/25 13:25 Family History Mother Seizures COPD (chronic obstructive pulmonary disease) Father Glaucoma Surgical History History of evisceration of eye (~04/2012) History of lingual frenulectomy History of rectal surgery Social History housing: other details: snf. Smoking Status: Never smoker alcohol intake: never substance use type: does not use Vital Signs Vital Signs Vital Signs: 01/07/25 13:25 01/07/25 13:25 Temperature 97.7 F L Temperature Source Temporal Pulse Rate 65 Respiratory Rate 18 Respiratory Pattern Normal Blood Pressure 151/97 H Blood Pressure Mean 115 Blood Pressure Source Monitor Blood Pressure Position Semi-Fowlers Blood Pressure Location Left Arm Pulse Ox 93 Oxygen Delivery Method Room Air Weight Weight: 89.811 kg Body Mass Index (BMI) 28.4
--- NOTE | 2025-01-07 14:29 | DCINST_ITS ---
Discharge Instructions Diet Discharge Diet: No restrictions DC O2, CPAP, BIPAP needs Home O2 Discharge instructions: No Dressing / Incision Discharge Activity: Return to Normal Activity and May Not Drive (while taking narcotic pain medications.) Dressing / Incision Call your doctor if you observe: Fever of 101 or Higher Catheter: Artis to leg bag and Artis to large bag Drain: [place] Follow Up Care Please Follow Up With: Herminio Moss MD When: Call [phone] for an appointment Test Results: Test results from this visit will be discussed in further detail at your follow- up appointment, if applicable. Discharge Plan Admission Primary Reason for Your Visit: turp Attending Provider: Herminio Moss Primary Care Provider: Abe Moralez Instructions Print Language: Nigerien Discharge Orders/Prescriptions Prescriptions: Continued fluticasone propionate 1 SPRAY spray,suspension 1 spray NASAL BID doxazosin 4 mg tablet 4 mg PO BID albuterol sulfate [Ventolin HFA] 90 mcg/actuation HFA aerosol inhaler 2 puff inhalation Q4H PRN PRN (Reason: Wheezing) Qty: 1 0RF Rx Instructions: Dispense with Spacer levetiracetam [Keppra] 500 mg Tablet 500 mg PO BID multivitamin Tablet 1 tab PO DAILY benztropine 0.5 mg tablet 1 mg PO BID Patient Comments: [NO ORIGINAL SIG] lactulose 10 gram/15 mL solution 30 ml PO TID acetaminophen 500 mg tablet 500 mg PO BID PRN PRN (Reason: pain) clozapine 200 mg tablet 200 mg PO BID docusate sodium 100 mg capsule 200 mg PO BID finasteride 5 mg tablet 5 mg PO DAILY polyethylene glycol 3350 17 gram/dose powder 17 g PO DAILY Lubricant Eye (PG-PEG 400)(PF) 0.4-0.3 % dropperette 2 drp EACH EYE BID guaifenesin 600 mg tablet extended release 12hr 1,200 mg PO BID PRN (Reason: COLD/ALLERGY SYMPTOMS) Referrals / Follow Up: Herminio Moss MD [Med Staff - Active Staff] - Abe Moralez MD [Primary Care Provider] - Disposition Disposition (needs filled in before D/C Order can be placed): Home, Self Care
[2025-01-07] MEDS: Cefazolin 2 GM in Syringe IV (14:38)
--- NOTE | 2025-01-07 15:14 | PCM.OPRPT ---
Operative Report (Standard) Operative Information Date of Procedure: 01/07/25 Pre-Operative Diagnosis: Retention of urine, voiding dysfunction Post-Operative Diagnosis: The same Surgery/Procedure Performed: Transurethral incision of the prostate chief media officer: No Type of Anesthesia: General RN Documented Start/Stop Times: Operation Date: 01/07/25 14:40 Case Time Into Pre-Op 01/07/25 12:56 Procedure Start Time: 14:59 Procedure Stop Time: 15:15 Select all DRAINS/GRAFTS/IMPLANTS that apply: Drains Drain details: 18 [place] Artis Estimated Blood Loss: None Specimen collected: No Description of surgery: 59-year-old male who is in the retirement he has got multiple medical problems including voiding dysfunction cognitive impairment and autism who presents with retention of urine he is failed several voiding trials despite medical therapy so set him up for surgery to do a cystoscopy diagnostic and then possible intervention of the prostate depending on the findings. Patient was taken back to the operative room after smooth induction of anesthesia I went the bladder with a 21 [place] rigid cystourethroscope the penis and testicles have been prepped and draped in usual sterile fashion he did have a very excoriated penis and testicles from chronic leakage. Went inside the urethral channel and there was no scar tissues or abnormalities along the course of the channel prostate was identified went to the sphincter the verumontanum was present he did have have a high riding bladder neck very short length prostate and very minimal obstruction so I decided to proceed with a laser incision of the prostate open up the prostate channel and bladder neck so using a 960 ?m thulium laser fiber, I did an incision at the 5 o'clock position incised in the prostate open and then another incision at the 7 o'clock position size of the prostate open after this did a flow test had a wide open flow I then placed a 18 [place] catheter in the bladder patient go home today with a Artis catheter to gravity drainage and follow-up in the office in 2 weeks for catheter removal. Surgical Findings: Small obstructive prostate proceeded with a transurethral incision of the prostate Complications Complications: No Admit VTE Documentation VTE Present on Admission: No VTE Mechan Device Prophylaxis: SCD's VTE Pharm Prophylaxis ordered?: No
--- NOTE | 2025-01-07 15:37 | PCM.POST.ANE ---
Anesthesia: Postop Eval I Current Vital Signs Temperature: 98.2 F Pulse Rate: 57 Blood Pressure: 111/77 Respiratory Rate: 16 Pulse Ox: 100 Assessment Airway patent: Yes Spontaneous unlabored respirations: Yes nausea: No Vomiting: No Anesthesia Complication: No Fluid Hydration Crystalloid volume administer (ml): 600 Total IV fluid infused: 600 Progress Note Anesthesia document: Postop Eval 1 completed: Yes
--- NOTE | 2025-01-07 16:14 | POSTOPAN2_ITS ---
Anesthesia Postop Eval I Sum Postop Eval Completion status Anesthesia document: Postop Eval 1 completed: Yes Anesthesia Postop Eval I Summary Anesthesia Postop Eval I Summary: Anesthesia Postop Eval I: Assessment Summary Airway patent Yes 01/07/25 15:37 INDUSTRIAL PROPERTY [email or web address] Spontaneous unlabored Yes 01/07/25 15:37 INDUSTRIAL PROPERTY [email or web address] respirations Mental status nausea No 01/07/25 15:37 INDUSTRIAL PROPERTY [email or web address] Vomiting No 01/07/25 15:37 INDUSTRIAL PROPERTY [email or web address] Anesthesia Postop Eval I: Fluid Summary Crystalloid volume administer 600 01/07/25 15:37 INDUSTRIAL PROPERTY [email or web address] (ml) Colloids volume administered ( ml) Blood Product volume administered (ml) Total IV fluid infused 600 01/07/25 15:37 INDUSTRIAL PROPERTY [email or web address] Anesthesia Postop Eval I: Summary Notes Anesthesia Complication No 01/07/25 15:37 INDUSTRIAL PROPERTY [email or web address] Anesthesia Complication Comment: Post-operative progress note Anesthesia: Postop Eval II Evaluation Mental status: Awake Pain Level: 0 nausea: No Vomiting: No
--- NOTE | 2025-01-07 16:14 | PCM.POSTANE2 ---
Anesthesia Postop Eval I Sum Postop Eval Completion status Anesthesia document: Postop Eval 1 completed: Yes Anesthesia Postop Eval I Summary Anesthesia Postop Eval I Summary: Anesthesia Postop Eval I: Assessment Summary Airway patent Yes 01/07/25 15:37 [email or web address] Spontaneous unlabored Yes 01/07/25 15:37 [email or web address] respirations Mental status nausea No 01/07/25 15:37 [email or web address] Vomiting No 01/07/25 15:37 [email or web address] Anesthesia Postop Eval I: Fluid Summary Crystalloid volume administer 600 01/07/25 15:37 [email or web address] (ml) Colloids volume administered ( ml) Blood Product volume administered (ml) Total IV fluid infused 600 01/07/25 15:37 [email or web address] Anesthesia Postop Eval I: Summary Notes Anesthesia Complication No 01/07/25 15:37 [email or web address] Anesthesia Complication Comment: Post-operative progress note Anesthesia: Postop Eval II Evaluation Mental status: Awake Pain Level: 0 nausea: No Vomiting: No
== END 2025-01-07 18:28 | disposition home or self-care (01) ==
LOC: SDC 12:47 → AC 12:48
PROVIDERS: PCP Family Medicine; Referring Provider Urology; Visit Provider Urology
PROC: (CPT 52601; principal; 2025-01-07 14:30)
DX: N40.1 Benign prostatic hyperplasia with lower urinary tract symptoms (principal); G40.909 Epilepsy, unspecified, not intractable, without status epilepticus; F84.0 Autistic disorder; R41.89 Other symptoms and signs involving cognitive functions and awareness; F63.9 Impulse disorder, unspecified; Z79.899 Other long term (current) drug therapy; R33.8 Other retention of urine
CPT/HCPCS: 52601; 00914; 93005; J2405

== ENCOUNTER 2025-01-12 09:11 | Outpatient (RCR) | payer MEDICARE, MEDICAID, SELFPAY ==
[2024-12-29 13:10] LABS: Absolute Lymphocyte Count 1.32 X10^3/uL (0.83-4.51); Basophil# 0.05 X10^3/uL; Eosinophil# 0.18 X10^3/uL; Eosinophils% 3.6 % (0-5); Hematocrit 50.4 % (40-54); Hemoglobin 16.6 g/dL (13.0-16.5); Lymphocyte # 1.32 X10^3/ul (0.83-4.51); Lymphocyte % 26.5 % (19-41); Mean Corp Hgb Conc 32.9 g/dL (32-36); Mean Corpuscular Hgb 29.6 pg (27.0-32.0); Mean Corpuscular Volume 89.8 fL (80-94); Mean Platelet Vol. 11.4 fl (6.2-12.0); Monocyte# 0.42 X10^3/uL; Monocyte% 8.4 % (0-10); NRBC Flagged by Analyzer 0 % (0-5); Neutrophil # 2.99 X10^3/uL (2.7-7.7); Neutrophil % 60.1 % (47-70); Platelet Count 174 K/mm3 (150-450); RBC Distribution Width SD 42.3 fl (35.1-43.9); Red Blood Count 5.61 M/mm3 (4.6-6.2)
[2025-01-05 12:42] LABS: Absolute Lymphocyte Count 1.18 X10^3/uL (0.83-4.51); Absolute Neutrophil Count 2.6 X10^3/uL (2.0-7.7); Basophil# 0.04 X10^3/uL; Basophil% 0.9 % (0-1); Eosinophil# 0.15 X10^3/uL; Eosinophils% 3.5 % (0-5); Hematocrit 46.3 % (40-54); Hemoglobin 15.1 g/dL (13.0-16.5); Lymphocyte # 1.18 X10^3/ul (0.83-4.51); Lymphocyte % 27.3 % (19-41); Mean Corp Hgb Conc 32.6 g/dL (32-36); Mean Corpuscular Hgb 29.6 pg (27.0-32.0); Mean Corpuscular Volume 90.8 fL (80-94); Mean Platelet Vol. 11.2 fl (6.2-12.0); Monocyte# 0.39 X10^3/uL; NRBC Flagged by Analyzer 0 % (0-5); Neutrophil # 2.56 X10^3/uL (2.7-7.7); Neutrophil % 59.1 % (47-70); Platelet Count 153 K/mm3 (150-450); RBC Distribution Width CV 12.9 % (11.6-14.6); RBC Distribution Width SD 43.1 fl (35.1-43.9); White Blood Count 4.3 K/mm3 (4.4-11.0)
[2025-01-12 12:40] LABS: Absolute Lymphocyte Count 1.07 X10^3/uL (0.83-4.51); Absolute Neutrophil Count 3.6 X10^3/uL (2.0-7.7); Basophil# 0.04 X10^3/uL; Basophil% 0.8 % (0-1); Eosinophil# 0.19 X10^3/uL; Eosinophils% 3.6 % (0-5); Hematocrit 46.5 % (40-54); Hemoglobin 15.5 g/dL (13.0-16.5); Lymphocyte # 1.07 X10^3/ul (0.83-4.51); Lymphocyte % 20.4 % (19-41); Mean Corp Hgb Conc 33.3 g/dL (32-36); Mean Corpuscular Volume 90.1 fL (80-94); Mean Platelet Vol. 11.2 fl (6.2-12.0); Monocyte% 5.7 % (0-10); NRBC Flagged by Analyzer 0 % (0-5); Neutrophil # 3.63 X10^3/uL (2.7-7.7); Neutrophil % 69.1 % (47-70); Platelet Count 180 K/mm3 (150-450); RBC Distribution Width CV 13.1 % (11.6-14.6); RBC Distribution Width SD 43.1 fl (35.1-43.9); Red Blood Count 5.16 M/mm3 (4.6-6.2); White Blood Count 5.3 K/mm3 (4.4-11.0)
== END 2025-01-21 23:59 ==
LOC: LABSPEC 09:11
PROVIDERS: PCP Family Medicine; Referring Provider Internal Medicine; Visit Provider Internal Medicine
DX: F29 Unspecified psychosis not due to a substance or known physiological condition (principal)
CPT/HCPCS: 85025

== ENCOUNTER → 2025-01-19 | Outpatient (CLI) | payer MEDICARE, MEDICAID, SELFPAY ==
[2025-01-19 13:29] LABS: Absolute Lymphocyte Count 0.82 X10^3/uL (0.83-4.51); Absolute Neutrophil Count 11.7 X10^3/uL (2.0-7.7); Basophil# 0.04 X10^3/uL; Basophil% 0.3 % (0-1); Eosinophil# 0.11 X10^3/uL; Eosinophils% 0.8 % (0-5); Hemoglobin 14.9 g/dL (13.0-16.5); Lymphocyte # 0.82 X10^3/ul (0.83-4.51); Lymphocyte % 5.8 % (19-41); Mean Corp Hgb Conc 32.4 g/dL (32-36); Mean Corpuscular Hgb 29.6 pg (27.0-32.0); Mean Corpuscular Volume 91.3 fL (80-94); Mean Platelet Vol. 10.7 fl (6.2-12.0); Monocyte# 1.38 X10^3/uL; Monocyte% 9.8 % (0-10); NRBC Flagged by Analyzer 0 % (0-5); Neutrophil # 11.72 X10^3/uL (2.7-7.7); Neutrophil % 82.9 % (47-70); Platelet Count 231 K/mm3 (150-450); RBC Distribution Width SD 42.9 fl (35.1-43.9); Red Blood Count 5.04 M/mm3 (4.6-6.2); White Blood Count 14.1 K/mm3 (4.4-11.0)
== END | disposition home or self-care (01) ==
LOC: LABSPEC 09:44
PROVIDERS: PCP Family Medicine; Visit Provider Family Medicine
DX: F29 Unspecified psychosis not due to a substance or known physiological condition (principal); F84.0 Autistic disorder
CPT/HCPCS: 85025

== ENCOUNTER 2025-02-09 11:44 | Inpatient (IN) | payer MEDICARE, MEDICAID, SELFPAY ==
[2025-02-09] VITALS (17 sets, daily range): BP systolic 114–169; BP diastolic 72–94; PULSE 78–104; RESP 12–32; TEMP 36.4–36.9; O2SAT 89–100; BMI 28.8; BMI 61.3
--- NOTE | 2025-02-09 11:53 | EKG12_ITS ---
Test Reason : SOB Blood Pressure : */* mmHG Vent. Rate : 83 BPM Atrial Rate : 83 BPM P-R Int : 156 ms QRS Dur : 146 ms QT Int : 402 ms P-R-T Axes : 21 -87 65 degrees QTcB Int : 472 ms Sinus rhythm with Premature atrial complexes Right bundle branch block Left anterior fascicular block Bifascicular block Septal infarct , age undetermined Abnormal ECG Confirmed by HOUSTON MAYA, STEFFANIE ([id number]), science editor ELIE PARRA ([id number]) on 02/10/2025 1:25:45 PM Referred By: Confirmed By: STEFFANIE CONRAD MD
[2025-02-09] MEDS: Ipratropium/Albuterol Sulfate 3 ML AMPUL.NEB INHALATION ×2 (12:06→20:16)
[2025-02-09] MEDS: 0.9% Normal Saline (1000mL) 1,000 ML 999 ML IV ×2 (12:06→12:48)
[2025-02-09] MEDS: Ondansetron 4 MG/2 ML Vial IV (12:06)
[2025-02-09 12:11] LABS: Absolute Lymphocyte Count 0.54 X10^3/uL (0.83-4.51); Absolute Neutrophil Count 13.7 X10^3/uL (2.0-7.7); Basophil# 0.03 X10^3/uL; Basophil% 0.2 % (0-1); Hemoglobin 17.4 g/dL (13.0-16.5); Lymphocyte # 0.54 X10^3/ul (0.83-4.51); Lymphocyte % 3.3 % (19-41); Mean Corp Hgb Conc 34.1 g/dL (32-36); Mean Corpuscular Volume 87.9 fL (80-94); Mean Platelet Vol. 11.6 fl (6.2-12.0); Monocyte# 1.95 X10^3/uL; NRBC Flagged by Analyzer 0 % (0-5); Neutrophil # 13.73 X10^3/uL (2.7-7.7); Neutrophil % 84.3 % (47-70); POSITIVE DIFFERENTIAL YES; Platelet Count 238 K/mm3 (150-450); RBC Distribution Width CV 13.4 % (11.6-14.6); RBC Distribution Width SD 42.5 fl (35.1-43.9); White Blood Count 16.3 K/mm3 (4.4-11.0)
[2025-02-09 12:12] LABS: Differential Indicated SCAN CRITERIA MET
--- NOTE | 2025-02-09 12:31 | EX.ED.DYSGE1 ---
HPI History of Present Illness Chief Complaint: Alt LOC Informant: EMS and mental health staff Narrative Narrative: 59-year-old male with a history of cognitive impairment and autism presenting to the emergency room with altered mental status. It is reported that the patient is essentially wheelchair-bound individual who occasionally get out of the wheelchair with physical therapy who lives at [facility]. The patient Abdulkadir was noted to be minimally responsive today and the concern was that the patient may have aspirated some point during the sleep. scrap worker states that he was instructed to take him to urgent care where he was seen and EMS was called they transported him here. They note that he was 90% on room air and bradycardic. Patient's paperwork shows that he is a DNR [facility] arrest. He is reportedly on seizure medications of Keppra. scrap worker there is with him states that he is normally converses and much more awake. Does not typically wear home oxygen [facility] Medical History Wears dentures Uses wheelchair Indwelling urethral catheter present Dietary restriction Difficulty swallowing Bilateral pneumonia Influenza A Impulse control disorder Skin ulcer of right hip with fat layer exposed Abrasion of hip, right Cellulitis of right upper extremity Constipation Non-smoker Seizures Cognitive impairment Autism Seizure disorder Home Medications ?Medication ?Instructions ?Recorded ?Last Taken ?Type doxazosin 4 mg tablet 4 mg PO BID 02/10/22 01/07/25 History albuterol sulfate 90 mcg/actuation 2 puff inhalation Q4H PRN PRN 03/14/22 04/02/22 Rx aerosol inhaler (Ventolin HFA) Wheezing ##1 levetiracetam 500 mg tablet 500 mg PO BID 01/26/23 01/07/25 History (Keppra) multivitamin 1 tab PO DAILY 03/08/23 01/07/25 History benztropine 0.5 mg tablet 1 mg PO BID 11/09/24 01/06/25 History lactulose 10 gram/15 mL oral 30 ml PO TID 11/09/24 01/06/25 History solution acetaminophen 500 mg tablet 500 mg PO BID PRN PRN pain 01/05/25 01/06/25 History clozapine 200 mg tablet 200 mg PO BID 01/05/25 01/07/25 History docusate sodium 100 mg capsule 200 mg PO BID 01/05/25 01/06/25 History finasteride 5 mg tablet 5 mg PO DAILY 01/05/25 01/07/25 History guaifenesin 600 mg tablet, 1,200 mg PO BID PRN COLD/ALLERGY 01/05/25 Unknown History extended release 12 hr SYMPTOMS peg 400-propylene glycol (PF) 0.4 2 drp EACH EYE BID 01/05/25 01/07/25 History %-0.3 % eye drops in a dropperette (Lubricant Eye (PG-PEG 400) (PF)) polyethylene glycol 3350 17 17 g PO DAILY 01/05/25 01/06/25 History gram/dose oral powder Allergy/AdvReac Type Severity Reaction Status Date / Time No Known Allergies Allergy Verified 02/09/25 11:49 Family History Mother Seizures COPD (chronic obstructive pulmonary disease) Father Glaucoma Surgical History History of evisceration of eye (~04/2012) History of lingual frenulectomy History of rectal surgery Social History household members: caregiver housing: house Smoking Status: Never smoker alcohol intake: never substance use type: does not use ROS ROS ED Review of Systems ROS Unobtainable: due to mental status EXAM Physical Exam Narrative Exam Narrative: Patient does not appear in any distress but is lethargic Const Vital Signs: 02/09/25 11:45 02/09/25 11:50 02/09/25 12:02 Temperature 97.6 F L 97.6 F L Temperature Source Axillary Axillary Pulse Rate 88 84 Respiratory Rate 21 H 32 H Respiratory Pattern Blood Pressure 114/76 114/72 Blood Pressure Mean 88 86 Pulse Ox 100 100 98 Oxygen Delivery Method Nasal Cannula Room Air Nasal Cannula Oxygen Flow Rate (L/min) 5 3 02/09/25 12:05 02/09/25 12:09 02/09/25 12:31 Temperature Temperature Source Pulse Rate 90 Respiratory Rate 18 Respiratory Pattern Normal Blood Pressure Blood Pressure Mean Pulse Ox 89 97 Oxygen Delivery Method Room Air Nasal Cannula Oxygen Flow Rate (L/min) 3 02/09/25 12:41 02/09/25 12:44 02/09/25 13:00 Temperature 97.9 F 97.9 F Temperature Source Temporal Pulse Rate 95 95 81 Respiratory Rate 21 H 21 H 23 H Respiratory Pattern Blood Pressure 118/78 118/78 148/87 H Blood Pressure Mean 91 91 107 Pulse Ox 99 99 100 Oxygen Delivery Method Nasal Cannula Nasal Cannula Oxygen Flow Rate (L/min) 3 3 02/09/25 14:00 02/09/25 15:00 Temperature Temperature Source Pulse Rate 78 95 Respiratory Rate 22 H 24 H Respiratory Pattern Blood Pressure 134/82 H 169/94 H Blood Pressure Mean 99 119 Pulse Ox 98 93 Oxygen Delivery Method Nasal Cannula Nasal Cannula Oxygen Flow Rate (L/min) 3 3 Positive well nourished and well developed General Appearance ED: well developed HEENT Reports normocephalic, head/scalp atraumatic and moist mucous membranes HEENT Narrative: There is emesis around the face and on the patient's shirt. Pupils are 3 mm and sluggish bilaterally Eyes PERRL and EOMs intact bilaterally Neck no lymphadenopathy, supple and no JVD Resp normal respiratory effort and clear to auscultation bilaterally Auscultation: rhonchi lower bilaterally Cardio regular rate, regular rhythm and no murmurs GI GI Narrative: Tympanitic to percussion Inspection: abdominal distention Auscultation: hypoactive bowel sounds Palpation: Negative for tender Back/Spine no CVA tenderness and normal ROM Extremity normal to inspection General Extremety ED: Negative for edema General Extremity: Negative for edema Neuro Neuro Narrative: Patient is lethargic. He does with withdrawal to painful stimuli and will occasionally move his eyes. Psych Psych Narrative: Unable to assess due to mental status Skin no rashes or lesions noted and no wounds MDM MDM MDM Narrative Medical decision making narrative: Differential diagnosis includes aspiration pneumonia pleural effusion bowel obstruction constipation dehydration electrolyte abnormality sepsis UTI Patient's white count is 16.3 with hemoglobin 17.4 platelet count of 238. Creatinine 1.33 with a BUN of 28 anion gap 12. Lactic acid slightly elevated 2.5 alk phos 140 urinalysis demonstrates 10-25 white cells 5-10 red cells 3+ bacteria negative nitrates this was a cath specimen. My independent interpretation of the chest x-ray is possible right lower lobe infiltrate. CTA of the chest demonstrates no pulmonary embolism and possible infiltrate on the right. There was a markedly distended abdomen that I noticed. I had CT add on CT brain and CT of the abdomen pelvis. There are no acute findings intracranially but noted within confines of the examination as he just had IV contrast. CT of the pelvis is read by radiology as small bowel obstruction with air-fluid levels. Case was discussed with hospitalist as well as with general surgery. NG tube was placed with return of large amount of fluid. My independent interpretation of the plain films of the abdomen is adequate position of the NG tube. He received Zosyn after blood cultures. Urine culture sent. Plan is admission in the hospital History & Record Review Discussion w/independent historian: EMS personnel and Other (jail staff/emergency medical notebook) Additional record(s) reviewed:: Prior inpatient record, Prior ED visit and Prior labs Lab Data Attestation: I reviewed the patient's lab results. Labs: Laboratory Results - last 24 hr 02/09/25 02/09/25 02/09/25 11:57 12:31 13:20 WBC 16.3 H RBC 5.80 Hgb 17.4 H Hct 51.0 MCV 87.9 MCH 30.0 MCHC 34.1 RDW Std Deviation 42.5 RDW Coeff of Carlos 13.4 Plt Count 238 MPV 11.6 Immature Gran % (Auto) 0.200 Neut % (Auto) 84.3 H Lymph % (Auto) 3.3 L Steele % (Auto) 12.0 H Eos % (Auto) 0.0 Baso % (Auto) 0.2 Absolute Neuts (auto) 13.7 H Absolute Lymphs (auto) 0.54 L Nucleated RBC % 0 PT 15.4 H INR 1.2 APTT 40.2 H Sodium Cancelled 138 Potassium Cancelled 4.4 Chloride Cancelled 97 L Carbon Dioxide Cancelled 29.5 Anion Gap Cancelled 12 BUN Cancelled 28 H Creatinine Cancelled 1.33 H Estim Creat Clear Calc Cancelled 67.91 Est GFR (MDRD) Non-Af Cancelled 62 BUN/Creatinine Ratio Cancelled 21.1 H Glucose Cancelled 157 H Lactic Acid 2.5 H* Calcium Cancelled 8.4 Total Bilirubin Cancelled 0.41 AST Cancelled 26 ALT Cancelled 26 Alkaline Phosphatase Cancelled 140 H Total Protein Cancelled 5.8 L Albumin Cancelled 3.3 L Globulin Cancelled 2.5 Albumin/Globulin Ratio Cancelled 1.3 Urine Color Yellow Urine Clarity Sl. Cloudy Urine pH 5.0 Ur Specific [place] 1.025 Urine Protein 30 H Urine Glucose (UA) Normal Urine Ketones 5 H Urine Occult Blood 250 H Urine Nitrite Negative Urine Bilirubin 1 H Urine Urobilinogen 1 H Ur Leukocyte Esterase 500 H Urine RBC 5-10 SEEN Urine WBC 10-25 SEEN Ur Squamous Epith Cells 0 SEEN Urine Bacteria 3+ Hyaline Casts 0-5 SEEN Urine Mucus 0 SEEN Radiography Diagnostic Testing: Clinical Impression(s) from Imaging Studies Chest X-Ray 02/09/25 12:40 IMPRESSION: 1. Minimal right basilar atelectasis or infiltrate. 2. Mild cardiomegaly. Reading [facility] Chest CTA 02/09/25 12:51 IMPRESSION: Bilateral pleural plaque calcification more prominent on the right side with the bibasilar atelectasis and/or scarring worse at the right lung base and possible right rounded atelectasis. No evidence of pulmonary embolism. Fluid-filled dilated esophagus. Reading Location: [facility] Abdomen/Pelvis CT 02/09/25 13:57 IMPRESSION: Small-bowel obstruction with distention of the distal esophagus and stomach as well as the proximal small bowel. Follow-up recommended. OVERALL FINAL ASSESSMENT: . LI-RADS is not meant to be used in patients <18 years or patients with cirrhosis due to congenital hepatic fibrosis or due to vascular disorders, because these patients have a lower chance of developing HCC. Reading Location: [facility] 02/09/25 13:57 IMPRESSION: No acute abnormality is seen. Reading Location: [facility] EKG Initial EKG: Attestation: I personally reviewed and interpreted this EKG as follows: Comments: Sinus rhythm with PACs. Bifascicular block of right bundle branch block and left anterior fascicular block is noted. Ventricular rate of 83 bpm Management Discussion w/another healthcare provider: Hospitalist (Dr. Carter), Credit Operations Processor (Dr. Gonzalez) and Radiologist Critical Care Time Critical Care Time: Yes Critical care time (excluding procedures): 30-74 minutes (35 min), Including time spent:, Discussing w/Patient &/or Family/Field Radio Technician, Discussing w/Consultants, Arranging Admission or Transfer and Performing Direct Patient Care at Bedside Discharge Plan Dx/Rx/DC Orders Clinical Impression: Autism, Cognitive impairment, Small bowel obstruction, Aspiration into airway, Altered mental status, Acute UTI Disposition Disposition: Acute Care Hospital [facility]
--- NOTE | 2025-02-09 12:32 | CPS ---
nurse blanca scanned my meds for me
[2025-02-09 12:36] LABS: International Normalized Ratio 1.2; Prothrombin Time (Protime)PT. 15.4 SECONDS (11.7-14.9)
[2025-02-09 12:38] LABS: Lactic Acid 2.5 mmol/L (0.0-2.0)
--- NOTE | 2025-02-09 12:40 | RAD_ITS ---
PROCEDURE: CHEST 1 VIEW (PORTABLE) 02/09/2025 REASON FOR EXAM: COUGH HYPOXIA TECHNIQUE: Frontal view of the chest. COMPARISON: September 13, 2023 FINDINGS: Cardiac silhouette mildly enlarged. Minimal right basilar atelectasis versus infiltrate. No pleural effusion seen. No pneumothorax. Osseous structures grossly appear intact.
[2025-02-09 12:45] LABS: Mucous, Urine 0 SEEN /hpf (<or=2+); Squamous Epithelial Cells - UA 0 SEEN /hpf (0-5)
[2025-02-09 12:46] LABS: Partial Thromboplast Time 40.2 Seconds (24.1-36.2)
[2025-02-09 12:50] LABS: Color, Urine Yellow (Yellow); Glucose, Dipstick Normal (Normal); Ketone-Dipstick 5 mg/dl (Negative); Leukocyte Esterase-Dipstick 500 /ul (Negative); Nitrite-Dipstick Negative (Negative); Occult Blood-Urine 250 /ul (Negative); Protein-Dipstick 30 mg/dl (Negative); Specific Gravity, Urine 1.025 (1.002-1.030); Urine Clarity Sl. Cloudy (Clear); Urine Urobilinogen 1 mg/dl (Normal)
--- NOTE | 2025-02-09 12:51 | CT_ITS ---
PROCEDURE: CTA CHEST W/WO CONTRAST 02/09/2025 REASON FOR EXAM: ASPIRATION AMS HYPOXIA PULMONARY EMBOLISM TECHNIQUE: CTA axial imaging of the chest with intravenous contrast. Multiplanar and multisequence images were obtained. PATIENT PREPARATION: Per protocol One or more dose reduction techniques were used (e.g., Automated exposure control, adjustment of the mA and/or kV according to patient size, use of iterative reconstruction technique). CONTRAST: Isovue 370 VOLUME: 100 mL RADIATION DOSE SUMMARY: CTDlvol: 12.5 mGy DLP: 461.86 mGycm COMPARISON: Prior chest radiograph done earlier in the day. FINDINGS: Hardware: None Lymph nodes: No evidence of mediastinal lymphadenopathy. Heart: The heart is nonenlarged. Thoracic Aorta: No thoracic aortic aneurysm or dissection. Pulmonary Vessels: No evidence of pulmonary embolism. Lungs and Airways: Calcified pleural plaques bilaterally more prominent on the right side. Increased markings are seen in the lung bases with areas of confluence worse on the right side suggestive of atelectasis and/or scarring and possible right rounded atelectasis. Pleura: Calcified pleural plaques. Upper Abdomen: Fluid distended esophagus. Clinical correlation recommended. Bones: Degenerative changes of the thoracic spine. CT/CTA Chest W/WO Contrast IMPRESSION: Bilateral pleural plaque calcification more prominent on the right side with th e bibasilar atelectasis and/or scarring worse at the right lung base and possible right rounded atelectasis. No evidence of pulmonary embolism. Fluid-filled dilated esophagus. Reading Location: [place] [id number]
[2025-02-09 12:56] LABS: Urine Bilirubin Dipstick 1 mg/dL (Negative)
[2025-02-09] MEDS: Piperacil/Tazobactam 4.5 GM in 0.9% Normal Saline (100mL MB+) 100 ML IV (13:17)
[2025-02-09 13:19] LABS: Bacteria 3+ /hpf (None Seen); Red Blood Cells-Urine 5-10 SEEN /hpf (0-5); White Blood Cells 10-25 SEEN /hpf (0-5)
[2025-02-09 13:20] LABS: Hyaline Cast 0-5 SEEN /lpf (0-5)
[2025-02-09 13:52] LABS: ALB/GLOB Ratio 1.3 RATIO (0.9-2.4); AST(SGOT) 26 U/L (<=37); Alanine Aminotransfer ALT/SGPT 26 U/L (<=46); Albumin, Serum 3.3 g/dL (3.5-5.0); Alkaline Phosphatase 140 U/L (40-129); Anion Gap 12 (5-15); BUN 28 mg/dL (4-19); BUN/Creat Ratio 21.1 RATIO (10-20); Calcium,Total 8.4 mg/dL (7.6-11.0); Carbon Dioxide 29.5 mmol/L (21.0-32.0); Chloride 97 mmol/L (98-108); Creatinine, Serum 1.33 mg/dL (0.70-1.20); EST Glomerular Filtration Rate 62 (>60); Estimated Creatinine Clearance 67.91 ml/min (50-250); Globulin 2.5 g/dL (2.2-4.2); Glucose 157 mg/dL (70-99); Potassium 4.4 mmol/L (3.3-5.1); Protein, Total 5.8 g/dL (5.9-8.4); Sodium Level 138 mmol/L (133-145); Total Bilirubin 0.41 mg/dL (0.00-1.30)
--- NOTE | 2025-02-09 13:57 | CT_ITS ---
PROCEDURE: BRAIN/HEAD WITHOUT CONTRAST 02/09/2025 REASON FOR EXAM: AMS TECHNIQUE: Head CT without intravenous contrast. Coronal and Sagittal reconstruction series were provided. One or more dose reduction techniques were used (e.g., Automated exposure control, adjustment of the mA and/or kV according to patient size, use of iterative reconstruction technique. RADIATION DOSE SUMMARY: CTDlvol: 47.06 mGy DLP: 960.91 mGycm COMPARISON: Comparison is made with prior study dated November 09, 2024. FINDINGS: IV contrast is seen most likely from prior study. Brain: Within normal limits for age CSF Spaces: Mild generalized cerebral atrophy Sinuses/Mastoids: Clear at visualized levels Bones: Unremarkable CT/Brain/Head without Contrast IMPRESSION: No acute abnormality is seen. Reading Location: [place] [id number]
--- NOTE | 2025-02-09 13:57 | CT_ITS ---
PROCEDURE: ABDOMEN/PELVIS WITHOUT CONT 02/09/2025 REASON FOR EXAM: GASTRIC DISTENSION Nausea and vomiting. History of seizures. TECHNIQUE: Abdomen and pelvis CT without intravenous contrast. Noncontrast technique limits evaluation of the abdominal and pelvic viscera. Coronal and Sagittal reconstruction series were provided. One or more dose reduction techniques were used (e.g., Automated exposure control, adjustment of the mA and/or kV according to patient size, use of iterative reconstruction technique). PATIENT PREPARATION: Per protocol ORAL CONTRAST TYPE: None. AMOUNT: mL COMPARISON: None FINDINGS: Lung bases: Mild increased markings at the lung bases suggestive of atelectasis with areas of confluence in the posterior medial segment of the right lower lobe suggestive of possible early infiltrate. Minimal left pleural effusion. Calcified right pleural plaques. Dilated fluid-filled visualized portion of the distal esophagus. Liver: Unremarkable Gallbladder: Mild distended gallbladder. Spleen: Normal size. Pancreas: Normal size. No surrounding inflammation. Adrenals: 2.4 cm hypodense nodule in the left adrenal gland suggestive of a possible adenoma. Kidneys: Bladder: Artis catheter within a decompressed urinary bladder. Bowel: Fluid-filled gastric distention. Prominence of the 2nd and 3rd portions of the duodenum. There is evidence of dilated small bowel loops down to the distal ileum. Fecal material and gas is seen within the colon. Findings suggestive of either early or incomplete small bowel obstruction. Follow-up recommended. Appendix: The appendix is not identified. There is no inflammatory process identified in the right lower quadrant to suggest appendicitis. Lymph nodes: Unremarkable. Vasculature: Mild diffuse atherosclerotic calcifications are noted. Peritoneum / Retroperitoneum: Unremarkable Bones: Degenerative changes of the spine. Subchondral sclerosis at the L2-L3, L3-L4 and L4-L5 levels. CT/Abdomen/Pelvis without Cont IMPRESSION: Small-bowel obstruction with distention of the distal esophagus and stomach as well as the proximal small bowel. Follow-up recommended. OVERALL FINAL ASSESSMENT: . LI-RADS is not meant to be used in patients <18 years or patients with cirrhosi s due to congenital hepatic fibrosis or due to vascular disorders, because these patients have a lower chance of developing HC C. Reading Location: [place] [id number]
--- NOTE | 2025-02-09 15:20 | RAD_ITS ---
PROCEDURE: ABDOMEN SINGLE VIEW (PORTABLE) 02/09/2025 REASON FOR EXAM: NG INSERTION TECHNIQUE: Single view abdomen. COMPARISON: CT abdomen February 09, 2025 FINDINGS: Bowel gas: Partially visualized bowel-gas pattern suspicious for small bowel obstruction. Bones: Osseous structures grossly appear intact Other: Nasogastric tube in good position extending below the diaphragm terminating within the stomach. RAD/Abdomen Single View (Portable) IMPRESSION: 1. Suspected small-bowel obstruction. 2. Nasogastric tube good position. Reading [facility]
[2025-02-09 16:02] LABS: Reflex Lactate? Y
--- NOTE | 2025-02-09 16:09 | PCM.HP.STD ---
HPI - General General Date of Admission: 02/09/25 Date of Service: 02/09/25 Chief Complaint: Decreased mental status HPI Narrative MORE SALAZAR, is a 59 M with history of autism, cognitive impairment, BPH, ?Seizure disorder, chronically on Clozaril who presented [facility] ED 02/09/2025 with concerns for aspiration. Patient vomited earlier today and afterwards was altered so he was taken to urgent care who called EMS and brought patient to the ED. In the ED patient afebrile with heart rate 80s to 90s, respiratory rate in the 20s and sats did decrease to 89% on room air. White blood cell count of 16.3, BUN of 28 creatinine 1.33 which is up from baseline of around 0.7, lactic acid 2.5. CTA did have abnormality at right base and cannot rule out that this is atelectasis or scarring however clinical picture and history consistent with aspiration pneumonia versus pneumonitis. Patient given IV fluids and Zosyn as well as a DuoNeb, due to esophageal dilation on the CT of his chest he did have CT of his abdomen which revealed a small bowel obstruction. NG tube placed and general surgery contacted who report they will see the patient in consult. Hospitalist contacted for admission. Patient seen with a filter changer from his [facility] at bedside. Reportedly patient has become somewhat more debilitated over time and has increased difficulty with transfers however otherwise no specific complaints until earlier today when he vomited and there was concern for the aspiration. [facility] Medical History Wears dentures Uses wheelchair Indwelling urethral catheter present Dietary restriction Difficulty swallowing Bilateral pneumonia Influenza A Impulse control disorder Skin ulcer of right hip with fat layer exposed Abrasion of hip, right Cellulitis of right upper extremity Constipation Non-smoker Seizures Cognitive impairment Autism Seizure disorder Home Medications ?Medication ?Instructions ?Recorded ?Last Taken ?Type doxazosin 4 mg tablet 4 mg PO BID 02/10/22 01/07/25 History albuterol sulfate 90 mcg/actuation 2 puff inhalation Q4H PRN PRN 03/14/22 04/02/22 Rx aerosol inhaler (Ventolin HFA) Wheezing ##1 levetiracetam 500 mg tablet 500 mg PO BID 01/26/23 01/07/25 History (Keppra) multivitamin 1 tab PO DAILY 03/08/23 01/07/25 History benztropine 0.5 mg tablet 1 mg PO BID 11/09/24 01/06/25 History lactulose 10 gram/15 mL oral 30 ml PO TID 11/09/24 01/06/25 History solution acetaminophen 500 mg tablet 500 mg PO BID PRN PRN pain 01/05/25 01/06/25 History clozapine 200 mg tablet 200 mg PO BID 01/05/25 01/07/25 History docusate sodium 100 mg capsule 200 mg PO BID 01/05/25 01/06/25 History finasteride 5 mg tablet 5 mg PO DAILY 01/05/25 01/07/25 History guaifenesin 600 mg tablet, 1,200 mg PO BID PRN COLD/ALLERGY 01/05/25 Unknown History extended release 12 hr SYMPTOMS peg 400-propylene glycol (PF) 0.4 2 drp EACH EYE BID 01/05/25 01/07/25 History %-0.3 % eye drops in a dropperette (Lubricant Eye (PG-PEG 400) (PF)) polyethylene glycol 3350 17 17 g PO DAILY 01/05/25 01/06/25 History gram/dose oral powder Allergy/AdvReac Type Severity Reaction Status Date / Time No Known Allergies Allergy Verified 02/09/25 11:49 Family History Mother Seizures COPD (chronic obstructive pulmonary disease) Father Glaucoma Surgical History History of evisceration of eye (~04/2012) History of lingual frenulectomy History of rectal surgery Social History household members: caregiver housing: house Smoking Status: Never smoker alcohol intake: never substance use type: does not use ROS ROS Narrative Patient only answers yes and no intermittently and gives inconsistent answers, unable to obtain ROS Vital Signs Vital Signs Vital Signs: 02/09/25 11:45 02/09/25 11:50 02/09/25 12:02 Temperature 97.6 F L 97.6 F L Temperature Source Axillary Axillary Pulse Rate 88 84 Respiratory Rate 21 H 32 H Respiratory Pattern Blood Pressure 114/76 114/72 Blood Pressure Mean 88 86 Pulse Ox 100 100 98 Oxygen Delivery Method Nasal Cannula Room Air Nasal Cannula Oxygen Flow Rate (L/min) 5 3 02/09/25 12:05 02/09/25 12:09 02/09/25 12:31 Temperature Temperature Source Pulse Rate 90 Respiratory Rate 18 Respiratory Pattern Normal Blood Pressure Blood Pressure Mean Pulse Ox 89 97 Oxygen Delivery Method Room Air Nasal Cannula Oxygen Flow Rate (L/min) 3 02/09/25 12:41 02/09/25 12:44 02/09/25 13:00 Temperature 97.9 F 97.9 F Temperature Source Temporal Pulse Rate 95 95 81 Respiratory Rate 21 H 21 H 23 H Respiratory Pattern Blood Pressure 118/78 118/78 148/87 H Blood Pressure Mean 91 91 107 Pulse Ox 99 99 100 Oxygen Delivery Method Nasal Cannula Nasal Cannula Oxygen Flow Rate (L/min) 3 3 02/09/25 14:00 02/09/25 15:00 02/09/25 16:00 Temperature Temperature Source Pulse Rate 78 95 104 H Respiratory Rate 22 H 24 H 28 H Respiratory Pattern Blood Pressure 134/82 H 169/94 H 133/86 H Blood Pressure Mean 99 119 101 Pulse Ox 98 93 98 Oxygen Delivery Method Nasal Cannula Nasal Cannula Oxygen Flow Rate (L/min) 3 3 Weight Weight: 91.2 kg Body Mass Index (BMI) 28.8 Physical Exam Narrative General: Patient laying in bed, does appear uncomfortable HEENT: Atraumatic Eyes: Keeps eyes shut Neck: Supple Respiratory: Does sound somewhat coarse at the right base, patient is slightly tachypneic Cardiovascular: Regular rate and rhythm GI: Distended, does not appear uncomfortable on palpation Extremities: No significant pitting Musculoskeletal: Moving all extremities Neuro: No overt focal neurological deficits however patient not able to participate in neuroexam Skin: No rashes appreciated Psych: Seems to attempt to be cooperative but poor historian with inconsistent answers Results Lab / Micro Data 02/09/25 11:57 02/09/25 13:20 Labs: Laboratory Results - last 24 hr 02/09/25 11:57: WBC 16.3 H, RBC 5.80, Hgb 17.4 H, Hct 51.0, MCV 87.9, MCH 30.0, MCHC 34.1, RDW Std Deviation 42.5, RDW Coeff of Carlos 13.4, Plt Count 238, MPV 11.6, Immature Gran % (Auto) 0.200, Neut % (Auto) 84.3 H, Lymph % (Auto) 3.3 L, [place] % (Auto) 12.0 H, Eos % (Auto) 0.0, Baso % (Auto) 0.2, Absolute Neuts (auto) 13.7 H, Absolute Lymphs (auto) 0.54 L, Nucleated RBC % 0, PT 15.4 H, INR 1.2, APTT 40.2 H, Sodium Cancelled, Potassium Cancelled, Chloride Cancelled, Carbon Dioxide Cancelled, Anion Gap Cancelled, BUN Cancelled, Creatinine Cancelled, Estim Creat Clear Calc Cancelled, Est GFR (MDRD) Non-Af Cancelled, BUN/Creatinine Ratio Cancelled, Glucose Cancelled, Lactic Acid 2.5 H*, Calcium Cancelled, Total Bilirubin Cancelled, AST Cancelled, ALT Cancelled, Alkaline Phosphatase Cancelled, Total Protein Cancelled, Albumin Cancelled, Globulin Cancelled, Albumin/Globulin Ratio Cancelled 02/09/25 12:31: Urine Color Yellow, Urine Clarity Sl. Cloudy, Urine pH 5.0, Ur Specific [place] 1.025, Urine Protein 30 H, Urine Glucose (UA) Normal, Urine Ketones 5 H, Urine Occult Blood 250 H, Urine Nitrite Negative, Urine Bilirubin 1 H, Urine Urobilinogen 1 H, Ur Leukocyte Esterase 500 H, Urine RBC 5-10 SEEN, Urine WBC 10-25 SEEN, Ur Squamous Epith Cells 0 SEEN, Urine Bacteria 3+, Hyaline Casts 0-5 SEEN, Urine Mucus 0 SEEN 02/09/25 13:20: Sodium 138, Potassium 4.4, Chloride 97 L, Carbon Dioxide 29.5, Anion Gap 12, BUN 28 H, Creatinine 1.33 H, Estim Creat Clear Calc 67.91, Est GFR (MDRD) Non-Af 62, BUN/Creatinine Ratio 21.1 H, Glucose 157 H, Calcium 8.4, Total Bilirubin 0.41, AST 26, ALT 26, Alkaline Phosphatase 140 H, Total Protein 5.8 L, Albumin 3.3 L, Globulin 2.5, Albumin/Globulin Ratio 1.3 Imaging Radiology Impression Chest X-Ray 02/09/25 12:40 IMPRESSION: 1. Minimal right basilar atelectasis or infiltrate. 2. Mild cardiomegaly. Reading [facility] Chest CTA 02/09/25 12:51 IMPRESSION: Bilateral pleural plaque calcification more prominent on the right side with the bibasilar atelectasis and/or scarring worse at the right lung base and possible right rounded atelectasis. No evidence of pulmonary embolism. Fluid-filled dilated esophagus. Reading Location: [facility]1 Abdomen/Pelvis CT 02/09/25 13:57 IMPRESSION: Small-bowel obstruction with distention of the distal esophagus and stomach as well as the proximal small bowel. Follow-up recommended. OVERALL FINAL ASSESSMENT: . LI-RADS is not meant to be used in patients <18 years or patients with cirrhosis due to congenital hepatic fibrosis or due to vascular disorders, because these patients have a lower chance of developing HCC. Reading Location: [facility] 02/09/25 13:57 IMPRESSION: No acute abnormality is seen. Reading Location: [facility]1 KUB X-Ray 02/09/25 15:20 IMPRESSION: 1. Suspected small-bowel obstruction. 2. Nasogastric tube good position. Reading Location: [facility] Assessment & Plan Assessment/Plan (1) Aspiration into airway: (2) Cognitive impairment: (3) Small bowel obstruction: PLAN: Plan # Small bowel obstruction -CT abdomen in the ED with small bowel obstruction with distention of distal esophagus and stomach as well as proximal small bowel - NG tube in place - IV fluids -NPO - Surgery consult - Supportive care # Aspiration pneumonia versus pneumonitis -Imaging: CTA demonstrated bilateral pleural calcification more prominent on right side with abnormality at the base, scarring and atelectasis both on differential -Patient with suspected aspiration earlier today after vomiting, patient was 90% in the ED and tachypneic -DuoNebs and as needed albuterol - Patient started on Zosyn in the ED and this was continued # ALBAN - Baseline creatinine seems to be around 0.7, patient has elevated BUN and creatinine - IV fluids # History of autism/cognitive impairment/chronically on Clozaril - Continue patient's home medications as soon as able to do so - Supportive care #Chronic BPH with obstruction - Resume home medications when patient able to take p.o. #?seizure d/o - Patient chronically on Keppra, will continue as IV given patient n.p.o. #DVT ppx: SCDs Gladys Carter MD Charges/Coding Visit Charges Inpatient E&M: 86002 Init Hosp L2
--- NOTE | 2025-02-09 16:21 | EX.PCM.CON.S ---
Assessment & Plan Assessment/Plan (1) Ileus: (2) Acute UTI: PLAN: Plan Patient appears to have a UTI which is likely causing an ileus. I have a low suspicion this is a bowel obstruction. NG has been placed and over a liter of fluid has been removed. Abdomen is soft but distended and nontender. I would like to continue NG suction and observation. Treat UTI. This will likely resolve spontaneously. Alexander Gonzalez MD Pager: [facility] [address] [place] [address], [address] [place] [address] Office: HPI Consult Data Date of Consult: 02/09/25 HPI Narrative HPI Narrative: MORE SALAZAR, is a 59 M who presents with abdominal distention and altered mental status. Patient is a poor historian but his caregiver notes that he had a bowel obstruction back in 2021. [facility] Medical History Wears dentures Uses wheelchair Indwelling urethral catheter present Dietary restriction Difficulty swallowing Bilateral pneumonia Influenza A Impulse control disorder Skin ulcer of right hip with fat layer exposed Abrasion of hip, right Cellulitis of right upper extremity Constipation Non-smoker Seizures Cognitive impairment Autism Seizure disorder Home Medications ?Medication ?Instructions ?Recorded ?Last Taken ?Type doxazosin 4 mg tablet 4 mg PO BID 02/10/22 01/07/25 History albuterol sulfate 90 mcg/actuation 2 puff inhalation Q4H PRN PRN 03/14/22 04/02/22 Rx aerosol inhaler (Ventolin HFA) Wheezing ##1 levetiracetam 500 mg tablet 500 mg PO BID 01/26/23 01/07/25 History (Keppra) multivitamin 1 tab PO DAILY 03/08/23 01/07/25 History benztropine 0.5 mg tablet 1 mg PO BID 11/09/24 01/06/25 History lactulose 10 gram/15 mL oral 30 ml PO TID 11/09/24 01/06/25 History solution acetaminophen 500 mg tablet 500 mg PO BID PRN PRN pain 01/05/25 01/06/25 History clozapine 200 mg tablet 200 mg PO BID 01/05/25 01/07/25 History docusate sodium 100 mg capsule 200 mg PO BID 01/05/25 01/06/25 History finasteride 5 mg tablet 5 mg PO DAILY 01/05/25 01/07/25 History guaifenesin 600 mg tablet, 1,200 mg PO BID PRN COLD/ALLERGY 01/05/25 Unknown History extended release 12 hr SYMPTOMS peg 400-propylene glycol (PF) 0.4 2 drp EACH EYE BID 01/05/25 01/07/25 History %-0.3 % eye drops in a dropperette (Lubricant Eye (PG-PEG 400) (PF)) polyethylene glycol 3350 17 17 g PO DAILY 01/05/25 01/06/25 History gram/dose oral powder Allergy/AdvReac Type Severity Reaction Status Date / Time No Known Allergies Allergy Verified 02/09/25 11:49 Family History Mother Seizures COPD (chronic obstructive pulmonary disease) Father Glaucoma Surgical History History of evisceration of eye (~04/2012) History of lingual frenulectomy History of rectal surgery Social History household members: caregiver housing: house Smoking Status: Never smoker alcohol intake: never substance use type: does not use Physical Exam Const alert and no apparent distress HEENT normocephalic Eyes PERRL Resp normal respiratory effort Cardio Rate: tachycardic Rhythm: regular rhythm GI soft to palpation Inspection: abdominal distention Palpation: Negative for tender Extremity normal to inspection Lab / Micro Data 02/09/25 11:57 02/09/25 13:20 Labs: Laboratory Results - last 24 hr 02/09/25 11:57: WBC 16.3 H, RBC 5.80, Hgb 17.4 H, Hct 51.0, MCV 87.9, MCH 30.0, MCHC 34.1, RDW Std Deviation 42.5, RDW Coeff of Carlos 13.4, Plt Count 238, MPV 11.6, Immature Gran % (Auto) 0.200, Neut % (Auto) 84.3 H, Lymph % (Auto) 3.3 L, [place] % (Auto) 12.0 H, Eos % (Auto) 0.0, Baso % (Auto) 0.2, Absolute Neuts (auto) 13.7 H, Absolute Lymphs (auto) 0.54 L, Nucleated RBC % 0, PT 15.4 H, INR 1.2, APTT 40.2 H, Sodium Cancelled, Potassium Cancelled, Chloride Cancelled, Carbon Dioxide Cancelled, Anion Gap Cancelled, BUN Cancelled, Creatinine Cancelled, Estim Creat Clear Calc Cancelled, Est GFR (MDRD) Non-Af Cancelled, BUN/Creatinine Ratio Cancelled, Glucose Cancelled, Lactic Acid 2.5 H*, Calcium Cancelled, Total Bilirubin Cancelled, AST Cancelled, ALT Cancelled, Alkaline Phosphatase Cancelled, Total Protein Cancelled, Albumin Cancelled, Globulin Cancelled, Albumin/Globulin Ratio Cancelled 02/09/25 12:31: Urine Color Yellow, Urine Clarity Sl. Cloudy, Urine pH 5.0, Ur Specific [place] 1.025, Urine Protein 30 H, Urine Glucose (UA) Normal, Urine Ketones 5 H, Urine Occult Blood 250 H, Urine Nitrite Negative, Urine Bilirubin 1 H, Urine Urobilinogen 1 H, Ur Leukocyte Esterase 500 H, Urine RBC 5-10 SEEN, Urine WBC 10-25 SEEN, Ur Squamous Epith Cells 0 SEEN, Urine Bacteria 3+, Hyaline Casts 0-5 SEEN, Urine Mucus 0 SEEN 02/09/25 13:20: Sodium 138, Potassium 4.4, Chloride 97 L, Carbon Dioxide 29.5, Anion Gap 12, BUN 28 H, Creatinine 1.33 H, Estim Creat Clear Calc 67.91, Est GFR (MDRD) Non-Af 62, BUN/Creatinine Ratio 21.1 H, Glucose 157 H, Calcium 8.4, Total Bilirubin 0.41, AST 26, ALT 26, Alkaline Phosphatase 140 H, Total Protein 5.8 L, Albumin 3.3 L, Globulin 2.5, Albumin/Globulin Ratio 1.3 Imaging Radiology Impression Chest X-Ray 02/09/25 12:40 IMPRESSION: 1. Minimal right basilar atelectasis or infiltrate. 2. Mild cardiomegaly. Reading Location[facility] Chest CTA 02/09/25 12:51 IMPRESSION: Bilateral pleural plaque calcification more prominent on the right side with the bibasilar atelectasis and/or scarring worse at the right lung base and possible right rounded atelectasis. No evidence of pulmonary embolism. Fluid-filled dilated esophagus. Reading Location: [facility]-1 Abdomen/Pelvis CT 02/09/25 13:57 IMPRESSION: Small-bowel obstruction with distention of the distal esophagus and stomach as well as the proximal small bowel. Follow-up recommended. OVERALL FINAL ASSESSMENT: . LI-RADS is not meant to be used in patients <18 years or patients with cirrhosis due to congenital hepatic fibrosis or due to vascular disorders, because these patients have a lower chance of developing HCC. Reading Location: [facility]-[address] 02/09/25 13:57 IMPRESSION: No acute abnormality is seen. Reading Location: [place] [id number] KUB X-Ray 02/09/25 15:20 IMPRESSION: 1. Suspected small-bowel obstruction. 2. Nasogastric tube good position. Reading Location: [facility]
[2025-02-09 17:32] LABS: Lactic Acid 4.3 mmol/L (0.0-2.0)
--- NOTE | 2025-02-09 18:59 | CM.ED ---
Social Work SW spoke with caregiver that was with patient. Caregiver stated that patient is from [facility] and that [facility] should be called with updates at [phone]. Sonia Juarez, LUBRICATING SPECIALIST, PROJECT ASSISTANT
[2025-02-09] MEDS: 0.9% Normal Saline (1000mL) 1,000 ML 75 ML IV (19:07)
--- NOTE | 2025-02-09 20:25 | PCM.HOSP.N ---
Hospitalist Note Patient evaluated at bedside with mother and father (patient's guardians) present, they confirm patient is DNR/DNI but want everything else done at this time. Patient is little bit more awake and alert, still has wet cough, denies abdominal pain but does report some tenderness on palpation. Repeat lactic did uptrend so fluids increased for longer duration and repeat lactic ordered
[2025-02-09] MEDS: levETIRAcetam IV 500 MG in 0.9% Normal Saline (100mL Bag) 100 ML 420 MG IV (21:26)
[2025-02-09] MEDS: Piperacil/Tazobactam 3.375 GM in 0.9% Normal Saline (50mL MB+) 50 ML IV (22:22)
[2025-02-09 22:29] LABS: Lactic Acid 1.7 mmol/L (0.0-2.0)
[2025-02-10] VITALS (8 sets, daily range): BP systolic 112–127; BP diastolic 62–91; PULSE 57–85; RESP 15–20; TEMP 36.8–37.1; O2SAT 95–100
[2025-02-10 06:15] LABS: Absolute Neutrophil Count 6.1 X10^3/uL (2.0-7.7); Basophil# 0.01 X10^3/uL; Basophil% 0.1 % (0-1); Hematocrit 39.4 % (40-54); Lymphocyte % 6.5 % (19-41); Mean Corpuscular Hgb 29.8 pg (27.0-32.0); Mean Corpuscular Volume 90.4 fL (80-94); Mean Platelet Vol. 11.2 fl (6.2-12.0); Monocyte% 14.3 % (0-10); NRBC Flagged by Analyzer 0 % (0-5); Neutrophil # 6.07 X10^3/uL (2.7-7.7); POSITIVE DIFFERENTIAL YES; POSITIVE MORPHOLOGY YES; Platelet Count 191 K/mm3 (150-450); RBC Distribution Width CV 13.2 % (11.6-14.6); RBC Distribution Width SD 43.8 fl (35.1-43.9); Red Blood Count 4.36 M/mm3 (4.6-6.2); White Blood Count 7.7 K/mm3 (4.4-11.0)
[2025-02-10 06:30] LABS: Differential Indicated SCAN CRITERIA MET
[2025-02-10] MEDS: Piperacil/Tazobactam 3.375 GM in 0.9% Normal Saline (50mL MB+) 50 ML IV ×3 (06:36→20:51)
[2025-02-10] MEDS: 0.9% Normal Saline 250 ML IV.SOLN. IV (06:38)
[2025-02-10 06:47] LABS: Anion Gap 8 (5-15); BUN 28 mg/dL (4-19); BUN/Creat Ratio 27.7 RATIO (10-20); Calcium,Total 8.7 mg/dL (7.6-11.0); Carbon Dioxide 35.3 mmol/L (21.0-32.0); Chloride 99 mmol/L (98-108); Creatinine, Serum 0.99 mg/dL (0.70-1.20); EST Glomerular Filtration Rate 87 (>60); Estimated Creatinine Clearance 137.95 ml/min (50-250); Glucose 134 mg/dL (70-99); Sodium Level 143 mmol/L (133-145)
[2025-02-10] MEDS: Ipratropium/Albuterol Sulfate 3 ML AMPUL.NEB INHALATION ×2 (07:27→20:22)
--- NOTE | 2025-02-10 07:30 | PN.SURG_ITS ---
Subjective Subjective Patient is not complaining of any abdominal pain Objective Data Objective Data Vital Signs: Vital Signs Temp Pulse Resp BP Pulse Ox O2 Del Method O2 Flow Rate 98.5 F 69 15 112/91 H 99 Nasal Cannula 4 02/10/25 03:00 02/10/25 03:00 02/10/25 03:00 02/10/25 03:00 02/10/25 04:00 02/10/25 04:00 02/10/25 04:00 Oxygen Flow Rate (L/min) 4 Oxygen Delivery Method Nasal Cannula Weight: 427 lb 11.148 oz Body Mass Index (BMI) 61.3 Intake & Output: Intake and Output for Last 24 Hours 02/08/25 02/09/25 02/10/25 23:59 23:59 23:59 Intake Total 2205 / 2235 110 / 110 Output Total 1200 / 1900 1650 / 1650 Balance 1005 / 335 -1540 / -1540 Lab / Micro Data 02/10/25 05:58 02/10/25 05:58 Labs: Laboratory Results - last 24 hr 02/09/25 11:57: WBC 16.3 H, RBC 5.80, Hgb 17.4 H, Hct 51.0, MCV 87.9, MCH 30.0, MCHC 34.1, RDW Std Deviation 42.5, RDW Coeff of Carlos 13.4, Plt Count 238, MPV 11.6, Immature Gran % (Auto) 0.200, Neut % (Auto) 84.3 H, Lymph % (Auto) 3.3 L, [place] % (Auto) 12.0 H, Eos % (Auto) 0.0, Baso % (Auto) 0.2, Absolute Neuts (auto) 13.7 H, Absolute Lymphs (auto) 0.54 L, Nucleated RBC % 0, PT 15.4 H, INR 1.2, A PTT 40.2 H, Sodium Cancelled, Potassium Cancelled, Chloride Cancelled, Carbon Dioxide Cancelled, Anion Gap Cancelled, BUN Cancelled, Creatinine Cancelled, Estim Creat Clear Calc Cancelled, Est GFR (MDRD) Non-Af Cancelled, BUN/Creatinine Ratio Cancelled, Glucose Cancelled, Lactic Acid 2.5 H*, Calcium Cancelled, Total Bilirubin Cancelled, AST Cancelled, ALT Cancelled, Alkaline Phosphatase Cancelled, Total Protein Cancelled, Albumin Cancelled, Globulin Cancelled, Albumin/Globulin Ratio Cancelled 02/09/25 12:31: Urine Color Yellow, Urine Clarity Sl. Cloudy, Urine pH 5.0, Ur Specific [place] 1.025, Urine Protein 30 H, Urine Glucose (UA) Normal, Urine Ketones 5 H, Urine Occult Blood 250 H, Urine Nitrite Negative, Urine Bilirubin 1 H, Urine Urobilinogen 1 H, Ur Leukocyte Esterase 500 H, Urine RBC 5-10 SEEN, Urine WBC 10-25 SEEN, Ur Squamous Epith Cells 0 SEEN, Urine Bacteria 3+, Hyaline Casts 0-5 SEEN, Urine Mucus 0 SEEN 02/09/25 13:20: Sodium 138, Potassium 4.4, Chloride 97 L, Carbon Dioxide 29.5, Anion Gap 12, BUN 28 H, Creatinine 1.33 H, Estim Creat Clear Calc 67.91, Est GFR (MDRD) Non-Af 62, BUN/Creatinine Ratio 21.1 H, Glucose 157 H, Calcium 8.4, Total Bilirubin 0.41, AST 26, ALT 26, Alkaline Phosphatase 140 H, Total Protein 5.8 L, Albumin 3.3 L, Globulin 2.5, Albumin/Globulin Ratio 1.3 02/09/25 16:20: Lactic Acid 4.3 H* 02/09/25 20:59: Lactic Acid 1.7 02/10/25 05:58: WBC 7.7, RBC 4.36 L, Hgb 13.0, Hct 39.4 L, MCV 90.4, MCH 29.8, MCHC 33.0, RDW Std Deviation 43.8, RDW Coeff of Carlos 13.2, Plt Count 191, MPV 11.2, Immature Gran % (Auto) 0.100, Neut % (Auto) 79.0 H, Lymph % (Auto) 6.5 L, [place] % (Auto) 14.3 H, Eos % (Auto) 0.0, Baso % (Auto) 0.1, Absolute Neuts (auto) 6.1, Absolute Lymphs (auto) 0.50 L, Nucleated RBC % 0, Sodium 143, Potassium 5.0, Chloride 99, Carbon Dioxide 35.3 H, Anion Gap 8, BUN 28 H, Creatinine 0.99, Estim Creat Clear Calc 137.95, Est GFR (MDRD) Non-Af 87, BUN/Creatinine Ratio 27.7 H, Glucose 134 H, Calcium 8.7 Radiography Diagnostic Testing: Radiology Impression Chest X-Ray 02/09/25 12:40 IMPRESSION: 1. Minimal right basilar atelectasis or infiltrate. 2. Mild cardiomegaly. Reading Location: [facility] Chest CTA 02/09/25 12:51 IMPRESSION: Bilateral pleural plaque calcification more prominent on the right side with the bibasilar atelectasis and/or scarring worse at the right lung base and possible right rounded atelectasis. No evidence of pulmonary embolism. Fluid-filled dilated esophagus. Reading Location: [facility]1 Abdomen/Pelvis CT 02/09/25 13:57 IMPRESSION: Small-bowel obstruction with distention of the distal esophagus and stomach as well as the proximal small bowel. Follow-up recommended. OVERALL FINAL ASSESSMENT: . LI-RADS is not meant to be used in patients <18 years or patients with cirrhosis due to congenital hepatic fibrosis or due to vascular disorders, because these patients have a lower chance of developing HCC. Reading Location: [facility] 02/09/25 13:57 IMPRESSION: No acute abnormality is seen. Reading Location: [facility] KUB X-Ray 02/09/25 15:20 IMPRESSION: 1. Suspected small-bowel obstruction. 2. Nasogastric tube good position. Reading Location: [facility] Physical Exam Const oriented x3 and no apparent distress Resp normal respiratory effort GI soft to palpation and non-tender Assessment & Plan Assessment/Plan (1) Ileus: PLAN: The patient had about 1300 cc out of his NG since midnight. His abdomen is much softer and less distended. He is passing flatus and he did have a bowel movement. With the high output from his NG I would recommend leaving it in for the morning. Hopeful to remove the NG either later this afternoon or tomorrow morning once output decreases. Alexander Gonzalez MD Pager: [facility] [address] [place] [address] [address] [place] [address] Office:
[2025-02-10] MEDS: 0.9% Normal Saline (1000mL) 1,000 ML 75 ML IV (07:54)
[2025-02-10 08:09] LABS: Reactive Lymphocyte 2+
[2025-02-10] MEDS: levETIRAcetam IV 500 MG in 0.9% Normal Saline (100mL Bag) 100 ML 420 MG IV ×2 (10:16→20:48)
--- NOTE | 2025-02-10 12:53 | PCM.PN.HOSP ---
Reason for Visit Reason for Visit: Diagnoses Unspecified intestinal obstruction, unspecified as to partial versus complete obstruction (02/09/25) Ileus, unspecified (02/09/25) Urinary tract infection, site not specified (02/09/25) Other symptoms and signs involving cognitive functions and awareness (02/09/25) Unspecified foreign body in respiratory tract, part unspecified causing other injury, initial encounter (02/09/25) Subjective Subjective Patient was seen and examined today, his father was in the room at the time of my examination. NG is in place, his abdomen is not distended, it is still slightly tympanic. I could not appreciate bowel sounds today. I reviewed surgery's note which said that the patient had a bowel movement and is passing flatus, they have elected to keep the patient's NG in place at the present time. Objective Data Objective Data Vital Signs: Vital Signs Temp Pulse Resp BP Pulse Ox O2 Del Method O2 Flow Rate 98.3 F 63 17 118/64 100 Nasal Cannula 3 02/10/25 08:46 02/10/25 08:46 02/10/25 08:46 02/10/25 08:46 02/10/25 08:46 02/10/25 09:03 02/10/25 09:03 Oxygen Flow Rate (L/min) 3 Oxygen Delivery Method Nasal Cannula Weight: 194 kg Body Mass Index (BMI) 61.3 Intake & Output: Intake and Output for Last 24 Hours 02/08/25 02/09/25 02/10/25 23:59 23:59 23:59 Intake Total 2205 / 2235 1223.75 / 1223.75 Output Total 1200 / 1900 2700 / 2700 Balance 1005 / 335 -1476.25 / -1476.25 Lab / Micro Data 02/10/25 05:58 02/10/25 05:58 Labs: Laboratory Results - last 24 hr 02/09/25 12:31: Urine Color Yellow, Urine Clarity Sl. Cloudy, Urine pH 5.0, Ur Specific Felch 1.025, Urine Protein 30 H, Urine Glucose (UA) Normal, Urine Ketones 5 H, Urine Occult Blood 250 H, Urine Nitrite Negative, Urine Bilirubin 1 H, Urine Urobilinogen 1 H, Ur Leukocyte Esterase 500 H, Urine RBC 5-10 SEEN, Urine WBC 10-25 SEEN, Ur Squamous Epith Cells 0 SEEN, Urine Bacteria 3+, Hyaline Casts 0-5 SEEN, Urine Mucus 0 SEEN 02/09/25 13:20: Sodium 138, Potassium 4.4, Chloride 97 L, Carbon Dioxide 29.5, Anion Gap 12, BUN 28 H, Creatinine 1.33 H, Estim Creat Clear Calc 67.91, Est GFR (MDRD) Non-Af 62, BUN/Creatinine Ratio 21.1 H, Glucose 157 H, Calcium 8.4, Total Bilirubin 0.41, AST 26, ALT 26, Alkaline Phosphatase 140 H, Total Protein 5.8 L, Albumin 3.3 L, Globulin 2.5, Albumin/Globulin Ratio 1.3 02/09/25 16:20: Lactic Acid 4.3 H* 02/09/25 20:59: Lactic Acid 1.7 02/10/25 05:58: WBC 7.7, RBC 4.36 L, Hgb 13.0, Hct 39.4 L, MCV 90.4, MCH 29.8, MCHC 33.0, RDW Std Deviation 43.8, RDW Coeff of Carlos 13.2, Plt Count 191, MPV 11.2, Immature Gran % (Auto) 0.100, Neut % (Auto) 79.0 H, Lymph % (Auto) 6.5 L, Glynn % (Auto) 14.3 H, Eos % (Auto) 0.0, Baso % (Auto) 0.1, Absolute Neuts (auto) 6.1, Absolute Lymphs (auto) 0.50 L, Nucleated RBC % 0, Reactive Lymphocytes 2+, Sodium 143, Potassium 5.0, Chloride 99, Carbon Dioxide 35.3 H, Anion Gap 8, BUN 28 H, Creatinine 0.99, Estim Creat Clear Calc 137.95, Est GFR (MDRD) Non-Af 87, BUN/Creatinine Ratio 27.7 H, Glucose 134 H, Calcium 8.7 Micro: Microbiology 02/09/25 12:31 Urine Catheter - Catheter Urine Culture - Preliminary GNR lactose banking consultant Radiography Diagnostic Testing: Radiology Impression Chest X-Ray 02/09/25 12:40 IMPRESSION: 1. Minimal right basilar atelectasis or infiltrate. 2. Mild cardiomegaly. Reading [facility] Chest CTA 02/09/25 12:51 IMPRESSION: Bilateral pleural plaque calcification more prominent on the right side with the bibasilar atelectasis and/or scarring worse at the right lung base and possible right rounded atelectasis. No evidence of pulmonary embolism. Fluid-filled dilated esophagus. [facility]Pelvis CT 02/09/25 13:57 IMPRESSION: Small-bowel obstruction with distention of the distal esophagus and stomach as well as the proximal small bowel. Follow-up recommended. OVERALL FINAL ASSESSMENT: . LI-RADS is not meant to be used in patients <18 years or patients with cirrhosis due to congenital hepatic fibrosis or due to vascular disorders, because these patients have a lower chance of developing HCC. [facility] 02/09/25 13:57 IMPRESSION: No acute abnormality is seen. Reading Location: [place] [id number] KUB X-Ray 02/09/25 15:20 IMPRESSION: 1. Suspected small-bowel obstruction. 2. Nasogastric tube good position. Reading [facility] Physical Exam Const alert and no apparent distress Constitutional Narrative: Patient has some cognitive impairment noted General Appearance: cooperative, well kempt and well developed Orientation / Consciousness: awake and oriented to person HEENT normocephalic, head/scalp atraumatic and moist oral mucous membranes Eyes PERRL, EOMs intact bilaterally and conjunctivae normal Neck supple, no JVD, thyroid normal and no carotid bruits General: trachea midline Resp normal respiratory effort, no retractions, no use of accessory muscles and clear to auscultation bilaterally Auscultation: Negative for rales, rhonchi or wheezes Cardio regular rate, regular rhythm, S1 normal heart sound, S2 normal heart sound, no murmurs, no rub and no gallops GI normal to inspection, nondistended, normoactive bowel sounds, soft to palpation, non-tender and non-distended Extremity no clubbing, cyanosis or edema Skin no rashes or lesions noted General Skin Exam: no breakdown Neuro CN's II-XII intact bilaterally, moves all extremities, no focal motor deficits and no sensory deficits noted Neuro Narrative: Some cognitive impairment noted on exam Sensorium / Orientation: awake, alert and oriented to person Psych affect normal Psych Narrative: Patient has cognitive impairment noted on exam Assessment & Plan Assessment/Plan (1) Ileus: PLAN: Plan 1. Ileus-patient's NG is in place at this time, general surgery is participating in his care #2 acute cystitis-patient is currently on Zosyn #3 acute aspiration-I do not believe the patient has aspiration pneumonia #4 intellectual and developmental disabilities-complicates care, management, recovery, and prognosis #5 autism-complicates care, management, recovery, and prognosis Total clinical time spent by myself addressing the patient's medical issues, reviewing all of his data, and collaborating with patient's care team: 35 minutes Charges/Coding Visit Charges Inpatient E&M: 72309 Subs Hosp L2
--- NOTE | 2025-02-10 13:01 | CHAPLAIN ---
Type of Pastoral Visit _x__ Initial Visit ___ Follow-up Visit ___ On-call Visit ___ General Patient Visit ___ Spiritual Assessment ___ Family Conference ___ Bereavement ___ Rapid Response ___ Code Blue ___ Other (describe below) Pastoral Care Referral From _x__ Patient ___ Family ___ Nurse ___ Physician ___ Bench Worker Apprentice ___ Experimental Display Builder ___ Other (describe below) Sacrament/Intervention _x__ Active listening ___ Anointing ___ Mormonism ___ Bereavement ___ Communion ___ Renae exploration ___ ___ Life review _x__ Prayer ___ Reconciliation ___ Sacrament of Sick _x__ Supportive presence ___ Wedding ___ Other (describe below) Pastoral Comments patient is awake and begins to ask questions of this customer service operator; pt is limited in his mental abilities and speech but he does engage in conversation by asking and then also answering some questions; pt is focused on the tubes, wires, and catheter that he has and repeatedly asks for a menu of the food to see; this customer service operator repeated that he should not pull on any wires and that he cannot eat or drink right now so that he can get better; attempts made to give distraction to the patient and even discuss what was on TV; pt did acknowledge that his mother would come to see him and that he lives away from his family; pt was asked about having a prayer said he responded 'okay' and then following it 'thank you';
--- NOTE | 2025-02-11 01:57 | NURSING ---
Pt trying to get out of bed to go home at this time. Slighlty agitated and states that his rights are being taken away. Tele leads off, NG tube pulled out, and pt legs over bed. made aware, and states to leave NG tube out. Pt transferred to recliner.
[2025-02-11 03:30] VITALS: BP 115/58; PULSE 61; RESP 18; TEMP 36.2; O2SAT 94
--- NOTE | 2025-02-11 05:10 | RAD_ITS ---
PROCEDURE: ABDOMEN SINGLE VIEW 02/11/2025 REASON FOR EXAM: ILEUS TECHNIQUE: Single view abdomen. COMPARISON: 02/09/2025 FINDINGS: There is gaseous prominence of bowel throughout the abdomen with gas and stool seen in the colon. Overall pattern favors some improvement in the previous possible obstructive process, clinically correlate. Nasogastric tube no longer identified. No evidence of mass effect. Changes at the visualized bases may represent chronic parenchymal changes. Lumbar spondylosis/discogenic change. RAD/Abdomen Single View IMPRESSION: There is gaseous prominence of bowel throughout the abdomen with gas and stool seen in the colon. Overall pattern favors some improvement in the previous possible obstructive process, clinically correlate. Nasogastric tube no longer identified. Reading Location: [id number]
[2025-02-11] MEDS: Piperacil/Tazobactam 3.375 GM in 0.9% Normal Saline (50mL MB+) 50 ML IV ×2 (05:32→13:48)
[2025-02-11] MEDS: Ipratropium/Albuterol Sulfate 3 ML AMPUL.NEB INHALATION (07:11)
[2025-02-11 07:12] VITALS: PULSE 69; RESP 18; O2SAT 93
--- NOTE | 2025-02-11 07:58 | PN.SURG_ITS ---
Subjective Subjective Patient reports passing flatus. He had a bowel movement yesterday that was charted. He denies nausea or vomiting. His abdomen is soft and nontender. Objective Data Objective Data Vital Signs: Vital Signs Temp Pulse Resp BP Pulse Ox O2 Del Method O2 Flow Rate 97.1 F L 69 18 115/58 L 93 Nasal Cannula 2 02/11/25 03:30 02/11/25 07:12 02/11/25 07:12 02/11/25 03:30 02/11/25 07:12 02/11/25 07:12 02/11/25 07:12 Oxygen Flow Rate (L/min) 2 Oxygen Delivery Method Nasal Cannula Weight: 427 lb 11.148 oz Body Mass Index (BMI) 61.3 Intake & Output: Intake and Output for Last 24 Hours 02/09/25 02/10/25 02/11/25 23:59 23:59 23:59 Intake Total 2205 / 2235 2328.75 / 2328.75 50 / 50 Output Total 1200 / 1900 3250 / 3250 150 / 150 Balance 1005 / 335 -921.25 / -921.25 -100 / -100 Lab / Micro Data 02/10/25 05:58 02/10/25 05:58 Labs: Laboratory Results - last 24 hr 02/10/25 05:58: Reactive Lymphocytes 2+ Micro: Microbiology 02/09/25 12:31 Urine Catheter - Catheter Urine Culture - Final Klebsiella pneumoniae sp pneum Radiography Diagnostic Testing: Radiology Impression KUB X-Ray 02/11/25 05:10 IMPRESSION: There is gaseous prominence of bowel throughout the abdomen with gas and stool seen in the colon. Overall pattern favors some improvement in the previous possible obstructive process, clinically correlate. Nasogastric tube no longer identified. Reading Location: [facility] Physical Exam Const oriented x3 and no apparent distress Resp normal respiratory effort GI soft to palpation and non-tender Assessment & Plan Assessment/Plan (1) Acute UTI: (2) Ileus: PLAN: Plan The patient appears to be improving. He is more interactive and likely at his baseline. Patient has Pseudomonas UTI. Likely ileus due to UTI. His NG was removed overnight by accident. It was bloody before it was removed so I will order a PPI. I will also order him a clear liquid diet. Alexander Gonzalez MD Pager: [facility] [address] [place] [address], [address] [place] [address] Office:
[2025-02-11 09:30] VITALS: BP 140/112; PULSE 58; RESP 18; TEMP 36.8; O2SAT 99
[2025-02-11] MEDS: levETIRAcetam IV 500 MG in 0.9% Normal Saline (100mL Bag) 100 ML 420 MG IV (09:37)
[2025-02-11] MEDS: Pantoprazole Sodium 40 MG Tablet PO (09:37)
--- NOTE | 2025-02-11 11:18 | CASEMGMT ---
TRACE called [facility] with patient's snf. [facility] asked that d/c [facility] [phone] Patient's pharmacy is [facility]. Serenity said staff should call her when patient is ready for discharge. TRACE let [facility] know it is possible patient will be discharged today. Rose Butts CLEANING AND MAINTENANCE WORKER NON LICENSED NUCLEAR EQUIPMENT OPERATOR
[2025-02-11] MEDS: Tamsulosin HCl 0.4 MG Capsule 0.8 MG PO (12:05)
[2025-02-11] MEDS: Lactulose 20 GM/30 ML UDC PO (14:29)
--- NOTE | 2025-02-11 14:44 | CASEMGMT ---
TRACE called [facility] with the senior living and let her know that patient will not be discharged today, more likely tomorrow. Rose GRANADOS
[2025-02-11 15:30] VITALS: BP 122/64; PULSE 62; RESP 18; TEMP 36.7; O2SAT 94
--- NOTE | 2025-02-11 17:37 | PN.HOSP_ITS ---
Reason for Visit Reason for Visit: Diagnoses Unspecified intestinal obstruction, unspecified as to partial versus complete obstruction (02/09/25) Ileus, unspecified (02/09/25) Urinary tract infection, site not specified (02/09/25) Other symptoms and signs involving cognitive functions and awareness (02/09/25) Unspecified foreign body in respiratory tract, part unspecified causing other injury, initial encounter (02/09/25) Subjective Subjective Patient was seen and examined today he was changed over today to a clear liquid diet, talked with him and his father who was in the room this morning at the time of my exam. Patient appears in good spirits. Objective Data Objective Data Vital Signs: Vital Signs Temp Pulse Resp BP Pulse Ox O2 Del Method O2 Flow Rate 98.1 F 62 18 122/64 H 94 Nasal Cannula 2 02/11/25 15:30 02/11/25 15:30 02/11/25 15:30 02/11/25 15:30 02/11/25 15:30 02/11/25 15:30 02/11/25 15:30 Oxygen Flow Rate (L/min) 2 Oxygen Delivery Method Nasal Cannula Weight: 194 kg Body Mass Index (BMI) 61.3 Intake & Output: Intake and Output for Last 24 Hours 02/09/25 02/10/25 02/11/25 23:59 23:59 23:59 Intake Total 2205 / 2235 2328.75 / 2328.75 565 / 565 Output Total 1200 / 1900 3250 / 3250 350 / 350 Balance 1005 / 335 -921.25 / -921.25 215 / 215 Lab / Micro Data 02/10/25 05:58 02/10/25 05:58 Micro: Microbiology 02/09/25 11:57 Blood Culture (Wb) - Left Hand Blood Culture - Preliminary No growth in 48 hours. 02/09/25 11:57 Blood Culture (Wb) - Anticubital Right Blood Culture - Preliminary No growth in 48 hours. 02/09/25 12:31 Urine Catheter - Catheter Urine Culture - Final Klebsiella pneumoniae sp pneum Radiography Diagnostic Testing: Radiology Impression KUB X-Ray 02/11/25 05:10 IMPRESSION: There is gaseous prominence of bowel throughout the abdomen with gas and stool seen in the colon. Overall pattern favors some improvement in the previous possible obstructive process, clinically correlate. Nasogastric tube no longer identified. Reading Location: [facility] Physical Exam Narrative alert and no apparent distress Constitutional Narrative: Patient has some cognitive impairment noted General Appearance: cooperative, well kempt and well developed Orientation / Consciousness: awake and oriented to person HEENT normocephalic, head/scalp atraumatic and moist oral mucous membranes Eyes PERRL, EOMs intact bilaterally and conjunctivae normal Neck supple, no JVD, thyroid normal and no carotid bruits General: trachea midline Resp normal respiratory effort, no retractions, no use of accessory muscles and clear to auscultation bilaterally Auscultation: Negative for rales, rhonchi or wheezes Cardio regular rate, regular rhythm, S1 normal heart sound, S2 normal heart sound, no murmurs, no rub and no gallops GI normal to inspection, nondistended, normoactive bowel sounds, soft to palpation, non-tender and non-distended Extremity no clubbing, cyanosis or edema Skin no rashes or lesions noted General Skin Exam: no breakdown Neuro CN's II-XII intact bilaterally, moves all extremities, no focal motor deficits and no sensory deficits noted Neuro Narrative: Some cognitive impairment noted on exam Sensorium / Orientation: awake, alert and oriented to person Psych affect normal Psych Narrative: Patient has cognitive impairment noted on exam Assessment & Plan Assessment/Plan (1) Acute UTI: (2) Ileus: PLAN: Plan 1. Ileus-patient's NG is now removed, I have decided to transition the patient over to regular diet. I have decided to increase the patient's lactulose to 30 g 3 times daily #2 acute cystitis-with Klebsiella pneumoniae, I will transition the patient over to cefdinir #3 acute aspiration-I do not believe the patient has aspiration pneumonia #4 intellectual and developmental disabilities-complicates care, management, recovery, and prognosis #5 autism-complicates care, management, recovery, and prognosis Total clinical time spent by myself addressing the patient's medical issues, reviewing all of his data, and collaborating with patient's care team: 35 minutes Charges/Coding Visit Charges Inpatient E&M: 34974 Subs Hosp L2
[2025-02-11 19:00] VITALS: PULSE 57
[2025-02-11 21:21] VITALS: BP 124/63; PULSE 45; RESP 18; TEMP 35.7; O2SAT 99
[2025-02-11] MEDS: cloZAPine 100 MG TABLET 200 MG PO (21:30)
[2025-02-11] MEDS: Docusate Sodium 100 MG Capsule 200 MG PO (21:30)
[2025-02-11] MEDS: Lactulose 20 GM/30 ML UDC 30 GM PO (21:30)
[2025-02-11] MEDS: Benztropine Mesylate 0.5 MG TABLET 1 MG PO (21:31)
[2025-02-11] MEDS: levETIRAcetam 500 MG Tablet PO (21:31)
[2025-02-11] MEDS: Cefdinir 300 MG Capsule PO (21:32)
[2025-02-12] VITALS (10 sets, daily range): BP systolic 119–132; BP diastolic 62–75; PULSE 51–91; RESP 16–26; TEMP 35.3–36.8; O2SAT 93–100
[2025-02-12] MEDS: Ipratropium/Albuterol Sulfate 3 ML AMPUL.NEB INHALATION ×3 (06:57→23:16)
--- NOTE | 2025-02-12 09:53 | PCM.PN.SRG ---
Subjective Subjective Patient evaluated resting comfortably in bed. He denies any nausea, vomiting, fever. He denies any abdominal pain. Objective Data Objective Data Vital Signs: Vital Signs Temp Pulse Resp BP Pulse Ox O2 Del Method O2 Flow Rate 98.3 F 57 L 20 H 130/62 H 94 Nasal Cannula 2 02/12/25 09:15 02/12/25 09:15 02/12/25 09:15 02/12/25 09:15 02/12/25 09:15 02/12/25 09:15 02/12/25 09:15 Oxygen Flow Rate (L/min) 2 Oxygen Delivery Method Nasal Cannula Weight: 427 lb 11.148 oz Body Mass Index (BMI) 61.3 Intake & Output: Intake and Output for Last 24 Hours 02/10/25 02/11/25 02/12/25 23:59 23:59 23:59 Intake Total 2328.75 / 2328.75 855 / 855 Output Total 3250 / 3250 450 / 450 600 / 600 Balance -921.25 / -921.25 405 / 405 -600 / -600 Lab / Micro Data 02/10/25 05:58 02/10/25 05:58 Micro: Microbiology 02/09/25 11:57 Blood Culture (Wb) - Left Hand Blood Culture - Preliminary No growth in 48 hours. 02/09/25 11:57 Blood Culture (Wb) - Anticubital Right Blood Culture - Preliminary No growth in 48 hours. 02/09/25 12:31 Urine Catheter - Catheter Urine Culture - Final Klebsiella pneumoniae sp pneum Physical Exam GI GI Narrative: Abdomen- soft, nontender Assessment & Plan Assessment/Plan (1) Ileus: PLAN: I am following this patient in conjunction with Dr. Gonzalez. Regular diet today No surgical intervention being recommended at this time Continue bowel regimen as an outpatient to assist with bowel function Okay to discharge from surgical aspect if he tolerates regular diet Charges/Coding Visit Charges Inpatient E&M: 51304 [facility] Hosp L2
--- NOTE | 2025-02-12 10:45 | PN.HOSP_ITS ---
Reason for Visit Reason for Visit: Diagnoses Unspecified intestinal obstruction, unspecified as to partial versus complete obstruction (02/09/25) Ileus, unspecified (02/09/25) Urinary tract infection, site not specified (02/09/25) Other symptoms and signs involving cognitive functions and awareness (02/09/25) Unspecified foreign body in respiratory tract, part unspecified causing other injury, initial encounter (02/09/25) Subjective Subjective Patient was seen and examined today, I turned off his oxygen and his pulse ox was 78% at rest. I have ordered a D-dimer on the patient-his CTA when he was admitted did not show any evidence of pulmonary embolism-and I ordered a chest x-ray. It may be necessary for the patient to go to an extended care facility for short-term care rather than back to the senior living. Patient's abdomen is soft, it does not appear distended. Objective Data Objective Data Vital Signs: Vital Signs Temp Pulse Resp BP Pulse Ox O2 Del Method O2 Flow Rate 98.3 F 51 L 20 H 130/62 H 93 Nasal Cannula 2 02/12/25 09:15 02/12/25 09:36 02/12/25 09:15 02/12/25 09:15 02/12/25 09:36 02/12/25 09:36 02/12/25 09:36 Oxygen Flow Rate (L/min) 2 Oxygen Delivery Method Nasal Cannula Weight: 194 kg Body Mass Index (BMI) 61.3 Intake & Output: Intake and Output for Last 24 Hours 02/10/25 02/11/25 02/12/25 23:59 23:59 23:59 Intake Total 2328.75 / 2328.75 855 / 855 Output Total 3250 / 3250 450 / 450 600 / 600 Balance -921.25 / -921.25 405 / 405 -600 / -600 Lab / Micro Data 02/10/25 05:58 02/10/25 05:58 Micro: Microbiology 02/09/25 11:57 Blood Culture (Wb) - Left Hand Blood Culture - Preliminary No growth in 48 hours. 02/09/25 11:57 Blood Culture (Wb) - Anticubital Right Blood Culture - Preliminary No growth in 48 hours. 02/09/25 12:31 Urine Catheter - Catheter Urine Culture - Final Klebsiella pneumoniae sp pneum Physical Exam Narrative alert and no apparent distress Constitutional Narrative: Patient has some cognitive impairment noted General Appearance: cooperative, well kempt and well developed Orientation / Consciousness: awake and oriented to person HEENT normocephalic, head/scalp atraumatic and moist oral mucous membranes Eyes PERRL, EOMs intact bilaterally and conjunctivae normal Neck supple, no JVD, thyroid normal and no carotid bruits General: trachea midline Resp normal respiratory effort, no retractions, no use of accessory muscles and clear to auscultation bilaterally Auscultation: Negative for rales, rhonchi or wheezes Cardio regular rate, regular rhythm, S1 normal heart sound, S2 normal heart sound, no murmurs, no rub and no gallops GI normal to inspection, nondistended, normoactive bowel sounds, soft to palpation, non-tender and non-distended Extremity no clubbing, cyanosis or edema Skin no rashes or lesions noted General Skin Exam: no breakdown Neuro CN's II-XII intact bilaterally, moves all extremities, no focal motor deficits and no sensory deficits noted Neuro Narrative: Some cognitive impairment noted on exam Sensorium / Orientation: awake, alert and oriented to person Psych affect normal Psych Narrative: Patient has cognitive impairment noted on exam Assessment & Plan Assessment/Plan (1) Ileus: (2) Acute UTI: PLAN: Plan 1. Ileus-patient's NG is now removed, I have decided to transition the patient over to regular diet. I have decided to increase the patient's lactulose to 30 g 3 times daily #2 acute cystitis-with Klebsiella pneumoniae, I will transition the patient over to cefdinir #3 acute aspiration-I do not believe the patient has aspiration pneumonia #4 intellectual and developmental disabilities-complicates care, management, recovery, and prognosis #5 autism-complicates care, management, recovery, and prognosis #6 hypoxia-etiology unclear, again patient will have a chest x-ray performed today, he will continue to receive aerosol treatments Total clinical time spent by myself addressing the patient's medical issues, reviewing all of his data, and collaborating with patient's care team: 35 minutes Charges/Coding Visit Charges Inpatient E&M: 71072 Subs Hosp L2
--- NOTE | 2025-02-12 10:52 | RAD_ITS ---
PROCEDURE: CHEST 1 VIEW (PORTABLE) 02/12/2025 REASON FOR EXAM: HYPOXIA TECHNIQUE: Frontal view of the chest. COMPARISON: Prior study dated February 09, 2025. FINDINGS: Hardware: EKG electrodes are seen. Heart: Borderline cardiomegaly. Lungs: Mild degree of vascular congestion and bibasilar atelectasis worse at the right lung base. Bones: Unremarkable Other: RAD/Chest 1 View (Portable) IMPRESSION: Borderline cardiomegaly. Vascular congestion and findings suggestive of bibasilar atelectasis. Reading Location: [place] [address]
--- NOTE | 2025-02-12 11:32 | CASEMGMT ---
TRACE called [facility] with patient's senior living and she said patient could return to the senior living with O2. They do not have a preferred company. TRACE notified physician. Rose GRANADOS
[2025-02-12] MEDS: Pantoprazole Sodium 40 MG Tablet PO (11:49)
[2025-02-12] MEDS: Benztropine Mesylate 0.5 MG TABLET 1 MG PO ×2 (11:49→21:52)
[2025-02-12] MEDS: Cefdinir 300 MG Capsule PO ×2 (11:49→21:52)
[2025-02-12] MEDS: cloZAPine 100 MG TABLET 200 MG PO ×2 (11:49→21:51)
[2025-02-12] MEDS: levETIRAcetam 500 MG Tablet PO ×2 (11:49→21:52)
[2025-02-12] MEDS: Docusate Sodium 100 MG Capsule 200 MG PO ×2 (11:49→21:52)
[2025-02-12] MEDS: Finasteride 5 MG Tablet PO (11:50)
[2025-02-12 13:31] LABS: D-Dimer Quantitative (DVT/PE) 1.37 FEU/ug/m (0.27-0.49)
[2025-02-12] MEDS: Lactulose 20 GM/30 ML UDC 30 GM PO ×2 (13:39→21:53)
--- NOTE | 2025-02-12 14:21 | CT_ITS ---
PROCEDURE: CTA CHEST W/WO CONTRAST 02/12/2025 REASON FOR EXAM: ELEVATED D-DIMER TECHNIQUE: CTA axial imaging of the chest with intravenous contrast. Multiplanar and multisequence images were obtained. PATIENT PREPARATION: Per protocol One or more dose reduction techniques were used (e.g., Automated exposure control, adjustment of the mA and/or kV according to patient size, use of iterative reconstruction technique). CONTRAST: Isovue 370 VOLUME: 100 mL RADIATION DOSE SUMMARY: CTDlvol: 16.6 mGy DLP: 412.9 mGycm COMPARISON: Prior study dated February 09, 2025. FINDINGS: Hardware: None Lymph nodes: Small mediastinal lymph nodes. Heart: The heart is not enlarged. No evidence of coronary artery calcification. Thoracic Aorta: No thoracic aortic aneurysm or dissection. Pulmonary Vessels: No evidence of pulmonary embolism. Lungs and Airways: Stable increased markings at the lung bases slightly worse at the right lung base. Pleura: Pleural plaque calcification more prominent on the right side. Upper Abdomen: Borderline splenomegaly. Fullness of the esophagus. Bones: Degenerative changes of the thoracic spine. CT/CTA Chest W/WO Contrast IMPRESSION: No evidence of pulmonary embolism. Stable increased markings at the lung bases worse on the right side. Reading Location: [place] [id number]
--- NOTE | 2025-02-12 15:17 | CASEMGMT ---
Patient will not be discharged today. TRACE called [facility] and let her know this information. [facility] GRANADOS
[2025-02-12] MEDS: Tamsulosin HCl 0.4 MG Capsule 0.8 MG PO (17:52)
[2025-02-13] VITALS (10 sets, daily range): BP systolic 128–143; BP diastolic 64–83; PULSE 62–102; RESP 18–24; TEMP 36.5–37.2; O2SAT 85–99
[2025-02-13] MEDS: Ipratropium/Albuterol Sulfate 3 ML AMPUL.NEB INHALATION ×3 (01:57→10:36)
--- NOTE | 2025-02-13 09:08 | NURSING ---
pt in unable to ambulate and is wheelchair bound at the correction. oxygen qualification for ambulation not able to be completed.
[2025-02-13] MEDS: levETIRAcetam 500 MG Tablet PO (10:00)
[2025-02-13] MEDS: cloZAPine 100 MG TABLET 200 MG PO (10:00)
[2025-02-13] MEDS: Docusate Sodium 100 MG Capsule 200 MG PO (10:00)
[2025-02-13] MEDS: Finasteride 5 MG Tablet PO (10:00)
[2025-02-13] MEDS: Cefdinir 300 MG Capsule PO (10:00)
[2025-02-13] MEDS: Pantoprazole Sodium 40 MG Tablet PO (10:00)
[2025-02-13] MEDS: Benztropine Mesylate 0.5 MG TABLET 1 MG PO (10:00)
--- NOTE | 2025-02-13 11:28 | PN.HOSP_ITS ---
Reason for Visit Reason for Visit: Diagnoses Unspecified intestinal obstruction, unspecified as to partial versus complete obstruction (02/09/25) Ileus, unspecified (02/09/25) Urinary tract infection, site not specified (02/09/25) Other symptoms and signs involving cognitive functions and awareness (02/09/25) Unspecified foreign body in respiratory tract, part unspecified causing other injury, initial encounter (02/09/25) Subjective Subjective Patient was seen and examined today, he requires 2 L of oxygen via nasal cannula to maintain his pulse ox above 90%. Patient has audible rhonchi today on examination, I am concerned about his swallowing ability and I have asked speech therapy to see him. Objective Data Objective Data Vital Signs: Vital Signs Temp Pulse Resp BP Pulse Ox O2 Del Method O2 Flow Rate 98.9 F 65 20 H 143/64 H 95 Nasal Cannula 2 02/13/25 06:29 02/13/25 10:38 02/13/25 10:38 02/13/25 06:29 02/13/25 07:47 02/13/25 07:47 02/13/25 07:47 Oxygen Flow Rate (L/min) 2 Oxygen Delivery Method Nasal Cannula Weight: 194 kg Body Mass Index (BMI) 61.3 Intake & Output: Intake and Output for Last 24 Hours 02/11/25 02/12/25 02/13/25 23:59 23:59 23:59 Intake Total 855 / 855 Output Total 450 / 450 950 / 950 500 / 500 Balance 405 / 405 -950 / -950 -500 / -500 Lab / Micro Data 02/10/25 05:58 02/10/25 05:58 Labs: Laboratory Results - last 24 hr 02/12/25 12:38: D-Dimer Quant (PE/DVT) 1.37 H* Micro: Microbiology 02/09/25 11:57 Blood Culture (Wb) - Left Hand Blood Culture - Preliminary No growth in 48 hours. 02/09/25 11:57 Blood Culture (Wb) - Anticubital Right Blood Culture - Preliminary No growth in 48 hours. 02/09/25 12:31 Urine Catheter - Catheter Urine Culture - Final Klebsiella pneumoniae sp pneum Radiography Diagnostic Testing: Radiology Impression Chest CTA 02/12/25 14:21 IMPRESSION: No evidence of pulmonary embolism. Stable increased markings at the lung bases worse on the right side. Reading Location: [place] [address] Physical Exam Narrative alert and no apparent distress Constitutional Narrative: Patient has some cognitive impairment noted General Appearance: cooperative, well kempt and well developed Orientation / Consciousness: awake and oriented to person HEENT normocephalic, head/scalp atraumatic and moist oral mucous membranes Eyes PERRL, EOMs intact bilaterally and conjunctivae normal Neck supple, no JVD, thyroid normal and no carotid bruits General: trachea midline Resp normal respiratory effort, no retractions, no use of accessory muscles and clear to auscultation bilaterally Auscultation: Negative for rales, rhonchi or wheezes Cardio regular rate, regular rhythm, S1 normal heart sound, S2 normal heart sound, no murmurs, no rub and no gallops GI normal to inspection, nondistended, normoactive bowel sounds, soft to palpation, non-tender and non-distended Extremity no clubbing, cyanosis or edema Skin no rashes or lesions noted General Skin Exam: no breakdown Neuro CN's II-XII intact bilaterally, moves all extremities, no focal motor deficits and no sensory deficits noted Neuro Narrative: Some cognitive impairment noted on exam Sensorium / Orientation: awake, alert and oriented to person Psych affect normal Psych Narrative: Patient has cognitive impairment noted on exam Assessment & Plan Assessment/Plan (1) Ileus: (2) Acute UTI: PLAN: Plan 1. Ileus-patient's NG is now removed, I have decided to transition the patient over to regular diet. #2 acute cystitis-with Klebsiella pneumoniae, patient remains on cefdinir #3 acute aspiration-I do not believe the patient has aspiration pneumonia #4 intellectual and developmental disabilities-complicates care, management, recovery, and prognosis #5 autism-complicates care, management, recovery, and prognosis #6 hypoxia-etiology unclear, again patient will have a chest x-ray performed today, he will continue to receive aerosol treatments #7 possible oropharyngeal dysphagia-I will have speech therapy see the patient and make recommendations Total clinical time spent by myself addressing the patient's medical issues, reviewing all of his data, and collaborating with patient's care team: 35 minutes Charges/Coding Visit Charges Inpatient E&M: 72118 Subs Hosp L2
--- NOTE | 2025-02-13 12:48 | DCINST_ITS ---
Discharge Instructions Diet Discharge Diet: - (Thin liquid diet, no straws, soft and bite-size) DC O2, CPAP, BIPAP needs Home O2 Discharge instructions: Yes Type of respiratory needs?: Oxygen Oxygen frequency: Continuous Continuous oxygen liters per minute: 2 L Dressing / Incision Discharge Activity: Return to Normal Activity Follow Up Care Test Results: Test results from this visit will be discussed in further detail at your follow- up appointment, if applicable. Discharge Plan Admission Admit Date/Time: 02/09/25 16:09 Primary Reason for Your Visit: Acute aspiration, urinary tract infection, ileus Attending Provider: Abe De Jesus Primary Care Provider: Abe Moralez Consulting Providers: Alexander Gonzalez; Gladys Carter Discharge Orders/Prescriptions Prescriptions: New cefdinir 300 mg Capsule 300 mg PO BID Qty: 5 0RF tamsulosin 0.4 mg Capsule 0.8 mg PO DAILY@1730 Qty: 60 0RF lactulose 10 gram/15 mL Solution 30 g PO TID Qty: 1892 0RF Continued doxazosin 4 mg tablet 4 mg PO QHS albuterol sulfate [Ventolin HFA] 90 mcg/actuation HFA aerosol inhaler 2 puff inhalation Q4H PRN PRN (Reason: Wheezing) Qty: 1 0RF Rx Instructions: Dispense with Spacer levetiracetam [Keppra] 500 mg Tablet 500 mg PO BID multivitamin Tablet 1 tab PO DAILY benztropine 0.5 mg tablet 1 mg PO BID Patient Comments: [NO ORIGINAL SIG] bacitracin 500 unit/gram ointment 1 applic topical BID PRN (Reason: skin) polymyxin B sulf-trimethoprim Drops 2 drp ophthalmic (eye) Q4H PRN (Reason: eye) Patient Comments: [id number]/mL use 2 drops in left eye q4H Debrox 6.5 % drops 4 drp EACH EAR BID PRN (Reason: ear wax) Patient Comments: 4 drops in each ear 2x/ daily x3days/ month for wax build up. acetaminophen 500 mg tablet 500 mg PO BID PRN PRN (Reason: pain) clozapine 200 mg tablet 200 mg PO BID docusate sodium 100 mg capsule 200 mg PO BID finasteride 5 mg tablet 5 mg PO DAILY polyethylene glycol 3350 17 gram/dose powder 17 g PO DAILY Lubricant Eye (PG-PEG 400)(PF) 0.4-0.3 % dropperette 2 drp EACH EYE BID PRN (Reason: eye) guaifenesin 600 mg tablet extended release 12hr 1,200 mg PO BID PRN (Reason: COLD/ALLERGY SYMPTOMS) Discontinued lactulose 10 gram/15 mL solution 30 ml PO TID Referrals / Follow Up: Abe Moralez MD [Primary Care Provider] - Disposition Disposition (needs filled in before D/C Order can be placed): Home, Self Care
--- NOTE | 2025-02-13 13:00 | CASEMGMT ---
Social Work Notified by SLICK FLETCHER that speech is recommending ST for patient at discharge. Called Maggie, detention provider at [phone], to update to intended discharge. Maggie confirms patient is okay to have Home O2 at the detention. Maggie confirms speech therapy is good too, and that the detention partners with [facility], so if Maggie can get an order will make a referral. Let Maggie know [facility] can initiate the referral. Choice list for HHC declined as patient's home care provider works with [facility] closely. Updated SLICK FLETCHER and discharge sales planning manager. Maggie report the detention will transport as they have patient's WC and WC accessible vehicle. Plan: Back to detention with HHC and Home O2 being set by SLICK FLETCHER and Discharge sales planning manager. -CHELITA Blanca
--- NOTE | 2025-02-13 13:06 | PCM.DC.SUM ---
Providers Date of Admission: 02/09/25 Date of Discharge: 02/13/25 Primary Care Physician: Dr. Abe Moralez MD Consultations 02/09/25 17:21 Consult: General Surgery Routine Consulting Provider: Alexander Gonzalez Reason for Consult: SBO EMERGENT Consult: No MD Notified: Yes Date Notified: 02/09/25 Time Notified: 16:39 Method of Notification: ED Physician Initiated Reason For Visit: SBO ASPIRATION Diagnosis Discharge Diagnosis (1) Ileus: Status: Acute Code(s): K56.7 - Ileus, unspecified (2) Acute UTI: Status: Acute Code(s): N39.0 - Urinary tract infection, site not specified Plan 1. Ileus-patient's NG is now removed, I have decided to transition the patient over to regular diet. #2 acute cystitis-with Klebsiella pneumoniae, patient remains on cefdinir #3 acute aspiration-I do not believe the patient has aspiration pneumonia #4 intellectual and developmental disabilities-complicates care, management, recovery, and prognosis #5 autism-complicates care, management, recovery, and prognosis #6 hypoxia-etiology unclear, again patient will have a chest x-ray performed today, he will continue to receive aerosol treatments #7 possible oropharyngeal dysphagia-I will have speech therapy see the patient and make recommendations Total clinical time spent by myself addressing the patient's medical issues, reviewing all of his data, and collaborating with patient's care team: 35 minutes Medications at Discharge Home Medications doxazosin 4 mg tablet 4 mg PO QHS heart 02/10/22 albuterol sulfate 90 mcg/actuation aerosol inhaler (Ventolin HFA) 2 puff inhalation Q4H PRN PRN Wheezing ##1 03/14/22 levetiracetam 500 mg tablet (Keppra) 500 mg PO BID 01/26/23 multivitamin 1 tab PO DAILY 03/08/23 benztropine 0.5 mg tablet 1 mg PO BID movement 11/09/24 acetaminophen 500 mg tablet 500 mg PO BID PRN PRN pain 01/05/25 clozapine 200 mg tablet 200 mg PO BID 01/05/25 docusate sodium 100 mg capsule 200 mg PO BID 01/05/25 finasteride 5 mg tablet 5 mg PO DAILY 01/05/25 guaifenesin 600 mg tablet, extended release 12 hr 1,200 mg PO BID PRN COLD/ALLERGY SYMPTOMS 01/05/25 peg 400-propylene glycol (PF) 0.4 %-0.3 % eye drops in a dropperette (Lubricant Eye (PG-PEG 400) (PF)) 2 drp EACH EYE BID PRN eye 01/05/25 polyethylene glycol 3350 17 gram/dose oral powder 17 g PO DAILY 01/05/25 bacitracin 500 unit/gram topical ointment 1 applic topical BID PRN skin 02/09/25 carbamide peroxide 6.5 % ear drops (Debrox) 4 drp EACH EAR BID PRN ear wax 02/09/25 polymyxin B sulfate-trimethoprim eye drops 2 drp ophthalmic (eye) Q4H PRN eye 02/09/25 cefdinir 300 mg capsule 300 mg PO BID #5 caps 02/13/25 lactulose 10 gram/15 mL oral solution 30 g (45 mL) PO TID #1,892 mL 02/13/25 tamsulosin 0.4 mg capsule 0.8 mg (2 x 0.4 mg) PO DAILY@1730 #60 caps 02/13/25 Hospital Course Operations None Procedures None Summary of Care Provided Minutes Spent on Discharge: 31 Hospital Course: This 59-year-old white male with a history of intellectual and developmental delay and autism was seen in the emergency room at [facility] of altered mental status there is a question whether the patient had an episode of aspiration at the retirement where he resided. Labs obtained in the emergency room showed elevated white blood cell count of 16.3, hemoglobin was 17.4, and urinalysis showed 5-10 RBCs, 10-25 WBCs and +3 bacteria. Chest x-ray showed minimal right basilar atelectasis or infiltrate, CT of the chest was performed which showed bilateral pleural plaque calcification more prominent on the right side with the bibasilar atelectasis and/or scarring worse at the right lung base and possible right rounded atelectasis. No evidence of pulmonary embolism is noted. Patient was admitted to PCU and treated for aspiration pneumonia and urinary tract infection, this examiner did not feel he had aspiration pneumonia. During the patient's hospital stay he was seen by general surgery due to an ileus, ileus resolved, the patient however continued require oxygen. This examiner felt that this was due to atelectasis. Patient was seen in consultation by speech therapy who felt that the patient was able to have oral intake with modification. On 02/13/2025, patient was seen and examined:alert and no apparent distress Constitutional Narrative: Patient has some cognitive impairment noted General Appearance: cooperative, well kempt and well developed Orientation / Consciousness: awake and oriented to person HEENT normocephalic, head/scalp atraumatic and moist oral mucous membranes Eyes PERRL, EOMs intact bilaterally and conjunctivae normal Neck supple, no JVD, thyroid normal and no carotid bruits General: trachea midline Resp normal respiratory effort, no retractions, no use of accessory muscles and clear to auscultation bilaterally Auscultation: Negative for rales, rhonchi or wheezes Cardio regular rate, regular rhythm, S1 normal heart sound, S2 normal heart sound, no murmurs, no rub and no gallops GI normal to inspection, nondistended, normoactive bowel sounds, soft to palpation, non-tender and non-distended Extremity no clubbing, cyanosis or edema Skin no rashes or lesions noted General Skin Exam: no breakdown Neuro CN's II-XII intact bilaterally, moves all extremities, no focal motor deficits and no sensory deficits noted Neuro Narrative: Some cognitive impairment noted on exam Sensorium / Orientation: awake, alert and oriented to person Psych affect normal Psych Narrative: Patient has cognitive impairment noted on exam Patient was discharged back to his retirement on 02/13/2025 in stable condition Weight / BMI Weight Weight: 194 kg Body Mass Index (BMI) 61.3 ABG / Lab / Microbiology Data 02/10/25 05:58 02/10/25 05:58 Laboratory: Laboratory Results - last 24 hr 02/12/25 12:38: D-Dimer Quant (PE/DVT) 1.37 H* Microbiology: Microbiology 02/09/25 11:57 Blood Culture (Wb) - Left Hand Blood Culture - Preliminary No growth in 48 hours. 02/09/25 11:57 Blood Culture (Wb) - Anticubital Right Blood Culture - Preliminary No growth in 48 hours. 02/09/25 12:31 Urine Catheter - Catheter Urine Culture - Final Klebsiella pneumoniae sp pneum Radiography Diagnostic Testing: Radiology Impression Chest X-Ray 02/12/25 10:52 IMPRESSION: Borderline cardiomegaly. Vascular congestion and findings suggestive of bibasilar atelectasis. Reading Location: [facility] Chest CTA 02/12/25 14:21 IMPRESSION: No evidence of pulmonary embolism. Stable increased markings at the lung bases worse on the right side. Reading Location: [facility] D/C Instructions Discharge Diet: - (Thin liquid diet, no straws, soft and bite-size) DC O2, CPAP, BIPAP Needs Home O2 Discharge instructions: Yes Type of respiratory needs?: Oxygen Oxygen frequency: Continuous Continuous oxygen liters per minute: 2 L DC home with Oxygen: Yes Home O2 MD Review: I have reviewed the oxygen testing, and the patient qualifies for home oxygen equipment and portability. The patient is mobile in the home and the community. Meaningful Use Info Meaningful Use Meaningful Use Diagnoses (Choose all that apply): None applicable Ischemic Stroke Statin Dosing Therapy Reference: STATIN DOSE THERAPY REFERENCE: * Patients > 75 years receive moderate or high dose statin therapy. * Patients 75 years or YOUNGER should receive HIGH intensity statin dose unless contraindicated. You will be required to document reason for non-treatment if statin daily dose does not meet guidelines. HIGH DOSE STATIN THERAPY DAILY Atorvastatin > than or = to 40 mg Rosuvastatin > than or = to 20 mg Amlodipine + Atorvastatin > than or = to 2.5/40 mg Ezetimibe + Simvastatin 10/80 mg Simvastatin 80mg Discharge Plan Admission Admit Date/Time: 02/09/25 16:09 Primary Reason for Your Visit: Acute aspiration, urinary tract infection, ileus Attending Provider: Abe De Jesus Primary Care Provider: Abe Moralez Consulting Providers: Alexander Gonzalez; Gladys Carter Discharge Orders/Prescriptions Prescriptions: New cefdinir 300 mg Capsule 300 mg PO BID Qty: 5 0RF tamsulosin 0.4 mg Capsule 0.8 mg PO DAILY@1730 Qty: 60 0RF lactulose 10 gram/15 mL Solution 30 g PO TID Qty: 1892 0RF Continued doxazosin 4 mg tablet 4 mg PO QHS albuterol sulfate [Ventolin HFA] 90 mcg/actuation HFA aerosol inhaler 2 puff inhalation Q4H PRN PRN (Reason: Wheezing) Qty: 1 0RF Rx Instructions: Dispense with Spacer levetiracetam [Keppra] 500 mg Tablet 500 mg PO BID multivitamin Tablet 1 tab PO DAILY benztropine 0.5 mg tablet 1 mg PO BID Patient Comments: [NO ORIGINAL SIG] bacitracin 500 unit/gram ointment 1 applic topical BID PRN (Reason: skin) polymyxin B sulf-trimethoprim Drops 2 drp ophthalmic (eye) Q4H PRN (Reason: eye) Patient Comments: [id number]/mL use 2 drops in left eye q4H Debrox 6.5 % drops 4 drp EACH EAR BID PRN (Reason: ear wax) Patient Comments: 4 drops in each ear 2x/ daily x3days/ month for wax build up. acetaminophen 500 mg tablet 500 mg PO BID PRN PRN (Reason: pain) clozapine 200 mg tablet 200 mg PO BID docusate sodium 100 mg capsule 200 mg PO BID finasteride 5 mg tablet 5 mg PO DAILY polyethylene glycol 3350 17 gram/dose powder 17 g PO DAILY Lubricant Eye (PG-PEG 400)(PF) 0.4-0.3 % dropperette 2 drp EACH EYE BID PRN (Reason: eye) guaifenesin 600 mg tablet extended release 12hr 1,200 mg PO BID PRN (Reason: COLD/ALLERGY SYMPTOMS) Discontinued lactulose 10 gram/15 mL solution 30 ml PO TID Referrals / Follow Up: Abe Moralez MD [Primary Care Provider] - Disposition Disposition (needs filled in before D/C Order can be placed): Home, Self Care Charges/Coding Visit Charges Inpatient E&M: 49849 Disch Hosp >30min
--- NOTE | 2025-02-13 13:40 | PHA.DC.MR.R ---
Pharmacy [place] Med Reconciliation Pharmacy Service has performed discharge medication reconciliation for this patient. The patient's discharge medication list was reviewed for discrepancies and discrepancies were resolved. Medications at Discharge Home Medications doxazosin 4 mg tablet 4 mg PO QHS heart 02/10/22 albuterol sulfate 90 mcg/actuation aerosol inhaler (Ventolin HFA) 2 puff inhalation Q4H PRN PRN Wheezing ##1 03/14/22 levetiracetam 500 mg tablet (Keppra) 500 mg PO BID 01/26/23 multivitamin 1 tab PO DAILY 03/08/23 benztropine 0.5 mg tablet 1 mg PO BID movement 11/09/24 acetaminophen 500 mg tablet 500 mg PO BID PRN PRN pain 01/05/25 clozapine 200 mg tablet 200 mg PO BID 01/05/25 docusate sodium 100 mg capsule 200 mg PO BID 01/05/25 finasteride 5 mg tablet 5 mg PO DAILY 01/05/25 guaifenesin 600 mg tablet, extended release 12 hr 1,200 mg PO BID PRN COLD/ALLERGY SYMPTOMS 01/05/25 peg 400-propylene glycol (PF) 0.4 %-0.3 % eye drops in a dropperette (Lubricant Eye (PG-PEG 400) (PF)) 2 drp EACH EYE BID PRN eye 01/05/25 polyethylene glycol 3350 17 gram/dose oral powder 17 g PO DAILY 01/05/25 bacitracin 500 unit/gram topical ointment 1 applic topical BID PRN skin 02/09/25 carbamide peroxide 6.5 % ear drops (Debrox) 4 drp EACH EAR BID PRN ear wax 02/09/25 polymyxin B sulfate-trimethoprim eye drops 2 drp ophthalmic (eye) Q4H PRN eye 02/09/25 cefdinir 300 mg capsule 300 mg PO BID #5 caps 02/13/25 lactulose 10 gram/15 mL oral solution 30 g (45 mL) PO TID #1,892 mL 02/13/25 tamsulosin 0.4 mg capsule 0.8 mg (2 x 0.4 mg) PO DAILY@1730 #60 caps 02/13/25
--- NOTE | 2025-02-13 13:48 | PCM.HOSP.N ---
Hospitalist Note Oxygen testing reviewed, patient is ambulatory in the home and community and requires home oxygen with portability
--- NOTE | 2025-02-13 13:53 | CASEMGMT ---
Discharge Planning HH referral and discharge instructions sent to N. They are able to accept. SLICK CM updated. Nelly Nichole DC Planning Asst.
--- NOTE | 2025-02-13 13:55 | CASEMGMT ---
Patient qualifies for home oxygen. Script received and referral sent to [facility] via [facility] with request to deliver tank to patient's room prior to discharge.
[2025-02-13] MEDS: Lactulose 20 GM/30 ML UDC 30 GM PO (14:35)
--- NOTE | 2025-02-13 15:35 | CASEMGMT ---
Discharge Planning [facility] updated that both O2 and HH has been arranged. Someone from the custodial with pick pt up within the hour. TRACE and RN CM updated. Nelly Ncihole DC Planning Asst.
== END 2025-02-13 16:40 | disposition other institution (70) | DRG 689 ==
LOC: ED 15:09 → PCU 16:15
PROVIDERS: Admitting Provider Internal Medicine; Emergency Provider Emergency Medicine; PCP Family Medicine; Visit Provider Internal Medicine
DX: N30.00 Acute cystitis without hematuria (principal); G93.41 Metabolic encephalopathy; K56.7 Ileus, unspecified; N17.9 Acute kidney failure, unspecified; J98.11 Atelectasis; I45.2 Bifascicular block; F84.0 Autistic disorder; T17.918A Gastric contents in respiratory tract, part unspecified causing other injury, initial encounter; R13.12 Dysphagia, oropharyngeal phase; Z66 Do not resuscitate; G40.909 Epilepsy, unspecified, not intractable, without status epilepticus; K59.00 Constipation, unspecified; B96.1 Klebsiella pneumoniae [K. pneumoniae] as the cause of diseases classified elsewhere; N13.8 Other obstructive and reflux uropathy; F79 Unspecified intellectual disabilities; I49.1 Atrial premature depolarization; N40.1 Benign prostatic hyperplasia with lower urinary tract symptoms; R62.50 Unspecified lack of expected normal physiological development in childhood; Z99.3 Dependence on wheelchair; Z79.899 Other long term (current) drug therapy
CPT/HCPCS: 36415; 51702; 70450; 71045; 71275; 74018; 74176; 80048; 80053; 81001; 83605; 85025; 85379; 85610; 85730; 87040; 87077; 87086; 87088; 87186; 92610; 93005; 94640; 99285; Q9967; A4216; J2405

== ENCOUNTER 2025-02-14 17:28 | Emergency (ER) | payer MEDICARE, MEDICAID, SELFPAY ==
[2025-02-14 17:32] VITALS: BP 111/76; PULSE 60; RESP 16; TEMP 36.1; O2SAT 92; BMI 28.2
[2025-02-14 17:43] VITALS: O2SAT 96
--- NOTE | 2025-02-14 17:56 | EX.ED.DYSGE1 ---
HPI History of Present Illness Chief Complaint: General Illness Informant: patient and other (prison staff is with him. And is primarily the informant.) Onset/Context/Timing Onset: Today Context: Gradual Onset Timing: Continuous Current Severity: Mild Maximum Severity: Mild Narrative Narrative: 59-year-old male history of autism. Recent hospitalization here for small bowel obstruction. Discharged yesterday. When he was discharged she was on oxygen. Today the member from the shelter said he just seemed more lethargic. Wanted to sleep more. No vomiting or diarrhea. No fever. He is not complaining of any pain. Patient himself is a limited informant due to his autism but he cannot communicate. Prior similar symptoms: No Recent Illness/Hospitalization: Yes [facility] Medical History Urine retention Sleep apnea Blind Wears dentures Uses wheelchair Indwelling urethral catheter present Dietary restriction Difficulty swallowing Bilateral pneumonia Influenza A Impulse control disorder Skin ulcer of right hip with fat layer exposed Abrasion of hip, right Cellulitis of right upper extremity Constipation Non-smoker Seizures Cognitive impairment Autism Seizure disorder Home Medications ?Medication ?Instructions ?Recorded ?Last Taken ?Type doxazosin 4 mg tablet 4 mg PO QHS heart 02/10/22 01/07/25 History albuterol sulfate 90 mcg/actuation 2 puff inhalation Q4H PRN PRN 03/14/22 04/02/22 Rx aerosol inhaler (Ventolin HFA) Wheezing ##1 levetiracetam 500 mg tablet 500 mg PO BID 01/26/23 01/07/25 History (Keppra) multivitamin 1 tab PO DAILY 03/08/23 01/07/25 History benztropine 0.5 mg tablet 1 mg PO BID movement 11/09/24 01/06/25 History acetaminophen 500 mg tablet 500 mg PO BID PRN PRN pain 01/05/25 01/06/25 History clozapine 200 mg tablet 200 mg PO BID 01/05/25 01/07/25 History docusate sodium 100 mg capsule 200 mg PO BID 01/05/25 01/06/25 History finasteride 5 mg tablet 5 mg PO DAILY 01/05/25 01/07/25 History guaifenesin 600 mg tablet, 1,200 mg PO BID PRN COLD/ALLERGY 01/05/25 Unknown History extended release 12 hr SYMPTOMS peg 400-propylene glycol (PF) 0.4 2 drp EACH EYE BID PRN eye 01/05/25 01/07/25 History %-0.3 % eye drops in a dropperette (Lubricant Eye (PG-PEG 400) (PF)) polyethylene glycol 3350 17 17 g PO DAILY 01/05/25 01/06/25 History gram/dose oral powder bacitracin 500 unit/gram topical 1 applic topical BID PRN skin 02/09/25 Unknown History ointment carbamide peroxide 6.5 % ear drops 4 drp EACH EAR BID PRN ear wax 02/09/25 Unknown History (Debrox) polymyxin B sulfate-trimethoprim 2 drp ophthalmic (eye) Q4H PRN eye 02/09/25 Unknown History eye drops cefdinir 300 mg capsule 300 mg PO BID #5 caps 02/13/25 Unknown Rx lactulose 10 gram/15 mL oral 30 g (45 mL) PO TID #1,892 mL 02/13/25 Unknown Rx solution tamsulosin 0.4 mg capsule 0.8 mg (2 x 0.4 mg) PO DAILY@1730 02/13/25 Unknown Rx #60 caps levofloxacin 500 mg tablet 500 mg PO DAILY #7 tabs 02/14/25 Unknown Rx Allergy/AdvReac Type Severity Reaction Status Date / Time No Known Allergies Allergy Verified 02/14/25 17:32 Family History Mother Seizures COPD (chronic obstructive pulmonary disease) Father Glaucoma Surgical History Hx of surgical procedure Hx of colonoscopy History of evisceration of eye (~04/2012) History of lingual frenulectomy History of rectal surgery Social History household members: caregiver housing: house Smoking Status: Never smoker alcohol intake: never substance use type: does not use ROS ROS ED ROS Narrative Patient very limited informant. Per shelter member no fever nor vomiting or diarrhea. Review of Systems ROS Unobtainable: due to mental status Constitutional Constitutional ED: Denies chills or fever(s) Eyes Eyes: Denies blurry vision ENT ENT ED: Denies ear pain Cardiovascular Cardiovascular: Denies chest pain Respiratory/Chest Respiratory/Chest: Denies cough Genitourinary Genitourinary ED: Denies dysuria Musculoskeletal Musculoskeletal: Denies arthralgias Integumentary Denies abscess Neurologic Neurologic: Denies headache(s) Psychiatric Psychiatric: Denies anxiety Hematologic/Lymphatic Hematologic/Lymphatic: Reports none Allergic/Immunologic Allergic/Immunologic ED: Denies mouth swelling, tongue swelling or urticaria EXAM Physical Exam Narrative Exam Narrative: 59-year-old male sitting upright in bed. Vital signs stable afebrile. Pulse ox 92% on room air no hypoxia 96% on 2 L. He is in no distress. H EENT exam right eye is blind. Left eye extra motions are intact. Mildly dry mucous membranes. No trauma to his face or scalp. Neck nontender no lymphadenopathy. No JVD. Lungs clear to auscultation bilaterally. Heart regular rhythm rate about 60 no murmur. Chest wall ribs nontender. Abdomen is soft, nondistended, normal bowel sounds without peritoneal signs. No tenderness. No obstruction. Moving all 4 extremities. Nontender no edema. Back nontender. Neurologically he is awake. He tries to communicate is very limited due to his autism. He does follow limited commands. Const Vital Signs: 02/14/25 17:32 02/14/25 17:43 02/14/25 17:44 Temperature 96.9 F L Temperature Source Axillary Pulse Rate 60 Respiratory Rate 16 Respiratory Effort Normal Non-Labored Respiratory Pattern Normal Blood Pressure 111/76 Blood Pressure Mean 87 Pulse Ox 92 96 Oxygen Delivery Method Room Air Nasal Cannula Oxygen Flow Rate (L/min) 2 Positive well nourished and well developed; Negative for cachectic, contractures or unkempt General Appearance ED: well developed and NAD; Negative for unkempt, cachectic, contractures, cyanotic, diaphoretic or pallor Nutritional Appearance: Negative for cachectic HEENT Reports dry mucous membranes Negative for trauma or tenderness Mouth ED: Yes dry mucous membranes Mouth: dry mucous membranes Eyes Negative for PERRL or EOMs intact bilaterally Eyes Narrative: Right eye blind. Left eye pupil round reactive light. Extra motions intact in left eye. Neck no lymphadenopathy, supple and no JVD Chest Wall inspection of chest normal and palpation of chest normal Resp normal respiratory effort and clear to auscultation bilaterally Cardio regular rate, regular rhythm, S1 normal heart sound, S2 normal heart sound and no murmurs GI normal to inspection, nondistended, normoactive bowel sounds, non-tender, non-distended and no masses Auscultation: normoactive bowel sounds Palpation: soft; Negative for tender, guarding or rebound tenderness present Back/Spine no CVA tenderness General Back: Negative for CVA tenderness Cervical Spine: Negative for cervical spine tenderness Thoracic Spine / Upper Back: Negative for thoracic spinal tenderness or paraspinal muscle tenderness Lumbar Spine / Lower Back: Negative for lumbar spinal tenderness Extremity normal to inspection General Extremety ED: Negative for edema or tenderness General Extremity: Negative for edema Neuro oriented x3 Neuro Narrative: Limited informant and ability to communicate due to his autism. Moving all 4 extremities. No focal motor deficits. Follows limited commands. Sensorium / Orientation: alert Motor Exam: strength 5/5 throughout Psych mental status grossly normal Appearance: Negative for unkempt Skin no rashes or lesions noted, no wounds and skin turgor normal General Skin Exam: Negative for jaundice or pallor Rashes: No rashes noted MDM MDM MDM Narrative Medical decision making narrative: 59-year-old male autism discharged in the hospital yesterday due to a bowel obstruction presents today with reported altered level consciousness per the shelter staff. Patient is currently awake his eyes are open he does not seem significantly altered. Screening labs will be obtained. Be given IV fluids he looks mildly dehydrated. His abdomen is benign and nontender. Is no signs of obstruction I do not think that needs image. Repeat exam patient doing well. The chest x-ray I think are chronic findings. Compared to the prior his lungs are clear. The urine will send a culture. Will be treated with Levaquin which would treat both lung and urine. Outpatient follow-up. On repeat exam he is doing well at 7:50 PM. Clinically looks well. History & Record Review Discussion w/independent historian: Patient and Other (prison staff.) Additional record(s) reviewed:: Prior inpatient record, Prior outpatient record and Prior labs Lab Data Attestation: I reviewed the patient's lab results. Lab results narrative: CBC shows a white count of 5. H&H 13 and 40. Platelets 211. Chemistry shows sodium 145. Gap 11. Normal BUN and creatinine of 13 and 0.7. Glucose 111. Liver enzymes unremarkable. Alk phos 137. Urinalysis shows 10-25 red cells. 10-25 white cells. 2+ bacteria. Labs: Laboratory Results - last 24 hr 02/14/25 02/14/25 02/14/25 17:47 18:15 18:40 WBC 5.9 RBC 4.35 L Hgb 13.3 Hct 40.5 MCV 93.1 MCH 30.6 MCHC 32.8 RDW Std Deviation 43.2 RDW Coeff of Carlos 12.5 Plt Count 211 MPV 10.7 Immature Gran % (Auto) 2.600 H Neut % (Auto) 60.0 Lymph % (Auto) 21.0 Phelps % (Auto) 12.6 H Eos % (Auto) 3.1 Baso % (Auto) 0.7 Absolute Neuts (auto) 3.5 Absolute Lymphs (auto) 1.23 Nucleated RBC % 0 Sodium 145 Potassium 3.8 Chloride 100 Carbon Dioxide 34.3 H Anion Gap 11 BUN 13 Creatinine 0.73 Estim Creat Clear Calc 122.49 Est GFR (MDRD) Non-Af 105 BUN/Creatinine Ratio 17.8 Glucose 111 H Calcium 9.4 Total Bilirubin 0.40 AST 18 ALT 25 Alkaline Phosphatase 137 H Total Protein 6.8 Albumin 3.8 Globulin 3.0 Albumin/Globulin Ratio 1.2 Urine Color Yellow Urine Clarity Sl. Cloudy Urine pH 6.0 Ur Specific [place] 1.025 Urine Protein 30 H Urine Glucose (UA) Normal Urine Ketones Negative Urine Occult Blood 150 H Urine Nitrite Negative Urine Bilirubin Negative Urine Urobilinogen 1 H Ur Leukocyte Esterase 25 H Urine RBC 10-25 SEEN Urine WBC 10-25 SEEN Ur Squamous Epith Cells 0 SEEN Urine Bacteria 2+ Urine Mucus 0 SEEN POC Glucose 102 Radiography Chest X-Ray - ED: 2 View, Read by ED Physician, Heart, Mediastinum, Bony Structures, No Acute Disease and Chronic Changes Diagnostic Testing: Clinical Impression(s) from Imaging Studies Chest X-Ray 02/14/25 18:20 IMPRESSION: Stable bilateral patchy consolidations and trace pleural effusions, compatible with pneumonitis/pneumonia. Reading Location: [facility] Chest x-ray, 2 views, AP and lateral, interpreted by myself shows borderline cardiomegaly. Vascular congestion. Chronic changes. Seen on prior chest x-ray. No acute process. Discharge Plan Triage Chief Complaint: General Illness ED Provider: Zheng Fields Dx/Rx/DC Orders Clinical Impression: Acute UTI, Autism Instructions: Urinary Tract Infections in Men Prescriptions: New levofloxacin 500 mg tablet 500 mg PO DAILY Qty: 7 0RF No Action doxazosin 4 mg tablet 4 mg PO QHS albuterol sulfate [Ventolin HFA] 90 mcg/actuation HFA aerosol inhaler 2 puff inhalation Q4H PRN PRN (Reason: Wheezing) Qty: 1 0RF Rx Instructions: Dispense with Spacer levetiracetam [Keppra] 500 mg Tablet 500 mg PO BID multivitamin Tablet 1 tab PO DAILY benztropine 0.5 mg tablet 1 mg PO BID Patient Comments: [NO ORIGINAL SIG] bacitracin 500 unit/gram ointment 1 applic topical BID PRN (Reason: skin) polymyxin B sulf-trimethoprim Drops 2 drp ophthalmic (eye) Q4H PRN (Reason: eye) Patient Comments: [id number]/mL use 2 drops in left eye q4H Debrox 6.5 % drops 4 drp EACH EAR BID PRN (Reason: ear wax) Patient Comments: 4 drops in each ear 2x/ daily x3days/ month for wax build up. cefdinir 300 mg Capsule 300 mg PO BID Qty: 5 0RF tamsulosin 0.4 mg Capsule 0.8 mg PO DAILY@1730 Qty: 60 0RF lactulose 10 gram/15 mL Solution 30 g PO TID Qty: 1892 0RF acetaminophen 500 mg tablet 500 mg PO BID PRN PRN (Reason: pain) clozapine 200 mg tablet 200 mg PO BID docusate sodium 100 mg capsule 200 mg PO BID finasteride 5 mg tablet 5 mg PO DAILY polyethylene glycol 3350 17 gram/dose powder 17 g PO DAILY Lubricant Eye (PG-PEG 400)(PF) 0.4-0.3 % dropperette 2 drp EACH EYE BID PRN (Reason: eye) guaifenesin 600 mg tablet extended release 12hr 1,200 mg PO BID PRN (Reason: COLD/ALLERGY SYMPTOMS) Primary Care Provider: Abe Moralez Referrals: Abe Moralez MD [Primary Care Provider] - 3-5 Days if not improving Activity Restrictions/Additional Instructions: Suspected urinary tract infection. Urine culture be sent. Started on the antibiotic Levaquin 1 pill daily for 7 days. Take after lunch. Follow-up with Dr. Garcia. Print Language: Hungarian Disposition Disposition: Home, Self Care
[2025-02-14 18:05] LABS: Bedside Glucose 102 mg/dL (74-106)
[2025-02-14] MEDS: 0.9% Normal Saline (500mL Bag) 500 ML 999 ML IV (18:16)
--- NOTE | 2025-02-14 18:20 | RAD_ITS ---
PROCEDURE: CHEST PA AND LATERAL 02/14/2025 REASON FOR EXAM: ALOC TECHNIQUE: Frontal and lateral views of the chest. COMPARISON: CTA chest 02/12/2025. FINDINGS: Hardware: None. Heart: Heart size is mildly enlarged. Mediastinum: The mediastinal contour is stable. Lungs: Patchy bilateral consolidations, greatest within the right lower lobe. Stable trace bilateral pleural effusions. Bilateral pleural plaques. Bones: Degenerative changes are identified within the thoracic spine. RAD/Chest PA and Lateral IMPRESSION: Stable bilateral patchy consolidations and trace pleural effusions, compatible with pneumonitis/pneumonia. Reading Location: [id number]
[2025-02-14 18:26] LABS: Absolute Lymphocyte Count 1.23 X10^3/uL (0.83-4.51); Absolute Neutrophil Count 3.5 X10^3/uL (2.0-7.7); Basophil# 0.04 X10^3/uL; Basophil% 0.7 % (0-1); Eosinophil# 0.18 X10^3/uL; Eosinophils% 3.1 % (0-5); Hematocrit 40.5 % (40-54); Hemoglobin 13.3 g/dL (13.0-16.5); Lymphocyte # 1.23 X10^3/ul (0.83-4.51); Mean Corp Hgb Conc 32.8 g/dL (32-36); Mean Corpuscular Hgb 30.6 pg (27.0-32.0); Mean Corpuscular Volume 93.1 fL (80-94); Mean Platelet Vol. 10.7 fl (6.2-12.0); Monocyte# 0.74 X10^3/uL; Monocyte% 12.6 % (0-10); NRBC Flagged by Analyzer 0 % (0-5); Neutrophil # 3.52 X10^3/uL (2.7-7.7); Platelet Count 211 K/mm3 (150-450); RBC Distribution Width CV 12.5 % (11.6-14.6); RBC Distribution Width SD 43.2 fl (35.1-43.9); Red Blood Count 4.35 M/mm3 (4.6-6.2); White Blood Count 5.9 K/mm3 (4.4-11.0)
[2025-02-14 18:50] LABS: Mucous, Urine 0 SEEN /hpf (<or=2+); Squamous Epithelial Cells - UA 0 SEEN /hpf (0-5)
[2025-02-14 18:54] LABS: Color, Urine Yellow (Yellow); Glucose, Dipstick Normal (Normal); Ketone-Dipstick Negative (Negative); Leukocyte Esterase-Dipstick 25 /ul (Negative); Nitrite-Dipstick Negative (Negative); Occult Blood-Urine 150 /ul (Negative); Protein-Dipstick 30 mg/dl (Negative); Specific Gravity, Urine 1.025 (1.002-1.030); Urine Bilirubin Dipstick Negative (Negative); Urine Clarity Sl. Cloudy (Clear); Urine Urobilinogen 1 mg/dl (Normal)
[2025-02-14 19:02] LABS: Bacteria 2+ /hpf (None Seen); Red Blood Cells-Urine 10-25 SEEN /hpf (0-5); White Blood Cells 10-25 SEEN /hpf (0-5)
--- NOTE | 2025-02-14 19:11 | ED.RN ---
Consent obtained from Dad (Jimi) for permission to treat.
[2025-02-14 19:29] VITALS: BP 127/75; PULSE 57; RESP 19; O2SAT 95
[2025-02-14 19:29] LABS: ALB/GLOB Ratio 1.2 RATIO (0.9-2.4); AST(SGOT) 18 U/L (<=37); Alanine Aminotransfer ALT/SGPT 25 U/L (<=46); Albumin, Serum 3.8 g/dL (3.5-5.0); Alkaline Phosphatase 137 U/L (40-129); Anion Gap 11 (5-15); BUN 13 mg/dL (4-19); BUN/Creat Ratio 17.8 RATIO (10-20); Calcium,Total 9.4 mg/dL (7.6-11.0); Carbon Dioxide 34.3 mmol/L (21.0-32.0); Chloride 100 mmol/L (98-108); Creatinine, Serum 0.73 mg/dL (0.70-1.20); EST Glomerular Filtration Rate 105 (>60); Estimated Creatinine Clearance 122.49 ml/min (50-250); Glucose 111 mg/dL (70-99); Potassium 3.8 mmol/L (3.3-5.1); Protein, Total 6.8 g/dL (5.9-8.4); Sodium Level 145 mmol/L (133-145)
[2025-02-14 20:11] VITALS: BP 106/75; PULSE 60; RESP 16; TEMP 36.1; O2SAT 93
--- NOTE | 2025-02-14 20:21 | ED.RN ---
Called father with update on discharge.
[2025-02-14] MEDS: Acetaminophen 500 MG Tablet 1000 MG PO (20:27)
== END 2025-02-14 20:36 | disposition home or self-care (01) ==
PROVIDERS: Emergency Provider Emergency Medicine; PCP Family Medicine; Visit Provider Emergency Medicine
DX: N39.0 Urinary tract infection, site not specified (principal); G40.909 Epilepsy, unspecified, not intractable, without status epilepticus; F84.0 Autistic disorder; K59.00 Constipation, unspecified; Z87.19 Personal history of other diseases of the digestive system; Z79.899 Other long term (current) drug therapy
CPT/HCPCS: 71046; 80053; 81001; 82962; 85025; 87077; 87086; 87088; 87186; 96360; 99284; A4216

== ENCOUNTER 2025-02-18 09:10 | Outpatient (RCR) | payer MEDICARE, MEDICAID, SELFPAY ==
[2025-01-26 12:36] LABS: Absolute Lymphocyte Count 0.96 X10^3/uL (0.83-4.51); Absolute Neutrophil Count 6.5 X10^3/uL (2.0-7.7); Basophil# 0.05 X10^3/uL; Basophil% 0.6 % (0-1); Eosinophil# 0.18 X10^3/uL; Eosinophils% 2.2 % (0-5); Hematocrit 44.2 % (40-54); Hemoglobin 14.9 g/dL (13.0-16.5); Lymphocyte # 0.96 X10^3/ul (0.83-4.51); Lymphocyte % 11.5 % (19-41); Mean Corp Hgb Conc 33.7 g/dL (32-36); Mean Corpuscular Hgb 30.3 pg (27.0-32.0); Mean Corpuscular Volume 89.8 fL (80-94); Mean Platelet Vol. 9.9 fl (6.2-12.0); Monocyte# 0.65 X10^3/uL; Monocyte% 7.8 % (0-10); NRBC Flagged by Analyzer 0 % (0-5); Neutrophil # 6.47 X10^3/uL (2.7-7.7); Neutrophil % 77.2 % (47-70); Platelet Count 311 K/mm3 (150-450); RBC Distribution Width CV 12.7 % (11.6-14.6); RBC Distribution Width SD 41.4 fl (35.1-43.9); Red Blood Count 4.92 M/mm3 (4.6-6.2); White Blood Count 8.4 K/mm3 (4.4-11.0)
[2025-02-02 12:39] LABS: Absolute Lymphocyte Count 1.33 X10^3/uL (0.83-4.51); Absolute Neutrophil Count 3.5 X10^3/uL (2.0-7.7); Basophil# 0.04 X10^3/uL; Basophil% 0.7 % (0-1); Eosinophils% 3.6 % (0-5); Hematocrit 44.9 % (40-54); Hemoglobin 14.9 g/dL (13.0-16.5); Lymphocyte # 1.33 X10^3/ul (0.83-4.51); Lymphocyte % 23.9 % (19-41); Mean Corp Hgb Conc 33.2 g/dL (32-36); Mean Corpuscular Volume 90.5 fL (80-94); Mean Platelet Vol. 10.5 fl (6.2-12.0); Monocyte# 0.42 X10^3/uL; Monocyte% 7.6 % (0-10); NRBC Flagged by Analyzer 0 % (0-5); Neutrophil # 3.52 X10^3/uL (2.7-7.7); Neutrophil % 63.3 % (47-70); Platelet Count 248 K/mm3 (150-450); RBC Distribution Width CV 12.3 % (11.6-14.6); RBC Distribution Width SD 40.3 fl (35.1-43.9); Red Blood Count 4.96 M/mm3 (4.6-6.2); White Blood Count 5.6 K/mm3 (4.4-11.0)
[2025-02-09 12:26] LABS: Absolute Lymphocyte Count 0.41 X10^3/uL (0.83-4.51); Absolute Neutrophil Count 10.7 X10^3/uL (2.0-7.7); Basophil# 0.04 X10^3/uL; Basophil% 0.3 % (0-1); Eosinophil# 0.05 X10^3/uL; Eosinophils% 0.4 % (0-5); Hematocrit 50.9 % (40-54); Hemoglobin 17.6 g/dL (13.0-16.5); Lymphocyte # 0.41 X10^3/ul (0.83-4.51); Lymphocyte % 3.3 % (19-41); Mean Corp Hgb Conc 34.6 g/dL (32-36); Mean Corpuscular Hgb 30.4 pg (27.0-32.0); Mean Corpuscular Volume 87.9 fL (80-94); Mean Platelet Vol. 11.7 fl (6.2-12.0); Monocyte# 1.11 X10^3/uL; NRBC Flagged by Analyzer 0 % (0-5); Neutrophil # 10.72 X10^3/uL (2.7-7.7); Neutrophil % 86.7 % (47-70); POSITIVE DIFFERENTIAL YES; Platelet Count 259 K/mm3 (150-450); RBC Distribution Width CV 13.1 % (11.6-14.6); RBC Distribution Width SD 41.3 fl (35.1-43.9); Red Blood Count 5.79 M/mm3 (4.6-6.2); White Blood Count 12.4 K/mm3 (4.4-11.0)
[2025-02-18 12:35] LABS: Absolute Lymphocyte Count 0.77 X10^3/uL (0.83-4.51); Absolute Neutrophil Count 4.3 X10^3/uL (2.0-7.7); Basophil# 0.05 X10^3/uL; Basophil% 0.8 % (0-1); Eosinophil# 0.23 X10^3/uL; Eosinophils% 3.8 % (0-5); Hematocrit 40.6 % (40-54); Lymphocyte # 0.77 X10^3/ul (0.83-4.51); Lymphocyte % 12.6 % (19-41); Mean Corpuscular Hgb 29.7 pg (27.0-32.0); Mean Corpuscular Volume 92.9 fL (80-94); Mean Platelet Vol. 10.5 fl (6.2-12.0); Monocyte# 0.65 X10^3/uL; Monocyte% 10.7 % (0-10); NRBC Flagged by Analyzer 0 % (0-5); Neutrophil # 4.28 X10^3/uL (2.7-7.7); Neutrophil % 70.1 % (47-70); Platelet Count 214 K/mm3 (150-450); RBC Distribution Width CV 12.5 % (11.6-14.6); RBC Distribution Width SD 42.6 fl (35.1-43.9); Red Blood Count 4.37 M/mm3 (4.6-6.2); White Blood Count 6.1 K/mm3 (4.4-11.0)
== END 2025-02-21 23:59 ==
LOC: LABSPEC 09:10
PROVIDERS: PCP Family Medicine; Referring Provider Internal Medicine; Visit Provider Internal Medicine
DX: F29 Unspecified psychosis not due to a substance or known physiological condition (principal)
CPT/HCPCS: 85025

== ENCOUNTER 2025-03-19 09:58 | Outpatient (RCR) | payer MEDICARE, MEDICAID, SELFPAY ==
[2025-02-26 09:09] LABS: Absolute Neutrophil Count 2.2 X10^3/uL (2.0-7.7); Basophil# 0.04 X10^3/uL; Basophil% 0.9 % (0-1); Eosinophil# 0.16 X10^3/uL; Eosinophils% 3.7 % (0-5); Hemoglobin 11.7 g/dL (13.0-16.5); Mean Corp Hgb Conc 32.5 g/dL (32-36); Mean Corpuscular Hgb 29.5 pg (27.0-32.0); Mean Corpuscular Volume 90.7 fL (80-94); Monocyte# 0.64 X10^3/uL; Monocyte% 14.9 % (0-10); NRBC Flagged by Analyzer 0 % (0-5); Neutrophil # 2.23 X10^3/uL (2.7-7.7); POSITIVE COUNT YES; Platelet Count 180 K/mm3 (150-450); RBC Distribution Width CV 12.8 % (11.6-14.6); RBC Distribution Width SD 42.1 fl (35.1-43.9); Red Blood Count 3.97 M/mm3 (4.6-6.2); White Blood Count 4.3 K/mm3 (4.4-11.0)
[2025-02-26 10:43] LABS: Differential Indicated SCAN CRITERIA MET
[2025-02-26 10:44] LABS: Platelet Estimate A (ADEQ)
[2025-03-02 12:13] LABS: Absolute Lymphocyte Count 1.17 X10^3/uL (0.83-4.51); Absolute Neutrophil Count 2.4 X10^3/uL (2.0-7.7); Basophil# 0.06 X10^3/uL; Basophil% 1.4 % (0-1); Eosinophil# 0.13 X10^3/uL; Eosinophils% 3.1 % (0-5); Hematocrit 45.3 % (40-54); Hemoglobin 14.5 g/dL (13.0-16.5); Lymphocyte # 1.17 X10^3/ul (0.83-4.51); Lymphocyte % 28.1 % (19-41); Mean Corpuscular Hgb 29.4 pg (27.0-32.0); Mean Corpuscular Volume 91.9 fL (80-94); Mean Platelet Vol. 11.2 fl (6.2-12.0); Monocyte# 0.41 X10^3/uL; Monocyte% 9.9 % (0-10); NRBC Flagged by Analyzer 0 % (0-5); Neutrophil # 2.37 X10^3/uL (2.7-7.7); Platelet Count 232 K/mm3 (150-450); RBC Distribution Width CV 13.3 % (11.6-14.6); RBC Distribution Width SD 44.2 fl (35.1-43.9); Red Blood Count 4.93 M/mm3 (4.6-6.2); White Blood Count 4.2 K/mm3 (4.4-11.0)
[2025-03-19 12:47] LABS: Absolute Neutrophil Count 2.2 X10^3/uL (2.0-7.7); Basophil# 0.03 X10^3/uL; Basophil% 0.8 % (0-1); Eosinophil# 0.14 X10^3/uL; Eosinophils% 3.6 % (0-5); Hematocrit 46.4 % (40-54); Hemoglobin 14.7 g/dL (13.0-16.5); Lymphocyte % 27.9 % (19-41); Mean Corp Hgb Conc 31.7 g/dL (32-36); Mean Corpuscular Hgb 29.3 pg (27.0-32.0); Mean Corpuscular Volume 92.4 fL (80-94); Mean Platelet Vol. 11.4 fl (6.2-12.0); Monocyte# 0.46 X10^3/uL; Monocyte% 11.7 % (0-10); NRBC Flagged by Analyzer 0 % (0-5); Neutrophil # 2.21 X10^3/uL (2.7-7.7); Platelet Count 155 K/mm3 (150-450); RBC Distribution Width CV 13.8 % (11.6-14.6); RBC Distribution Width SD 46.2 fl (35.1-43.9); Red Blood Count 5.02 M/mm3 (4.6-6.2); White Blood Count 3.9 K/mm3 (4.4-11.0)
== END 2025-03-23 23:59 ==
LOC: LABSPEC 09:58
PROVIDERS: PCP Family Medicine; Referring Provider Family Medicine; Visit Provider Internal Medicine
DX: F41.9 Anxiety disorder, unspecified; F39 Unspecified mood [affective] disorder
CPT/HCPCS: 85025

== ENCOUNTER 2025-04-14 08:00 | Outpatient (RCR) | payer MEDICARE, MEDICAID, SELFPAY ==
[2025-03-30 08:38] LABS: Hematocrit 43.2 % (40-54); Hemoglobin 14.1 g/dL (13.0-16.5); Immature Granulocytes Count 0.000 X10^3/uL (0.0-0.0); Mean Corp Hgb Conc 32.6 g/dL (32-36); Mean Corpuscular Volume 91.1 fL (80-94); Mean Platelet Vol. 11.7 fl (6.2-12.0); NRBC Flagged by Analyzer 0 % (0-5); Platelet Count 141 K/mm3 (150-450); RBC Distribution Width CV 13.5 % (11.6-14.6); RBC Distribution Width SD 45.3 fl (35.1-43.9); Red Blood Count 4.74 M/mm3 (4.6-6.2); White Blood Count 4.1 K/mm3 (4.4-11.0)
[2025-04-14 12:44] LABS: Hematocrit 45.8 % (40-54); Hemoglobin 14.9 g/dL (13.0-16.5); Immature Granulocytes Count 0.020 X10^3/uL (0.0-0.0); Mean Corp Hgb Conc 32.5 g/dL (32-36); Mean Corpuscular Volume 90.9 fL (80-94); Mean Platelet Vol. 11.2 fl (6.2-12.0); NRBC Flagged by Analyzer 0 % (0-5); Platelet Count 186 K/mm3 (150-450); RBC Distribution Width CV 13.2 % (11.6-14.6); RBC Distribution Width SD 43.8 fl (35.1-43.9); Red Blood Count 5.04 M/mm3 (4.6-6.2); White Blood Count 4.5 K/mm3 (4.4-11.0)
== END 2025-04-23 23:59 ==
LOC: LABSPEC 08:00
PROVIDERS: PCP Family Medicine; Referring Provider Family Medicine; Visit Provider Internal Medicine
DX: F29 Unspecified psychosis not due to a substance or known physiological condition (principal); Z51.81 Encounter for therapeutic drug level monitoring
CPT/HCPCS: 85025

== ENCOUNTER 2025-04-27 11:05 | Outpatient (RCR) | payer MEDICARE, MEDICAID, SELFPAY ==
[2025-04-27 13:26] LABS: Hematocrit 45.7 % (40-54); Hemoglobin 15.0 g/dL (13.0-16.5); Immature Granulocytes Count 0.010 X10^3/uL (0.0-0.0); Mean Corp Hgb Conc 32.8 g/dL (32-36); Mean Corpuscular Volume 90.5 fL (80-94); Mean Platelet Vol. 12.1 fl (6.2-12.0); NRBC Flagged by Analyzer 0 % (0-5); Platelet Count 143 K/mm3 (150-450); RBC Distribution Width CV 12.9 % (11.6-14.6); RBC Distribution Width SD 42.4 fl (35.1-43.9); Red Blood Count 5.05 M/mm3 (4.6-6.2); White Blood Count 4.2 K/mm3 (4.4-11.0)
== END 2025-05-24 23:59 ==
LOC: LABSPEC 11:05
PROVIDERS: PCP Family Medicine; Referring Provider Family Medicine; Visit Provider Internal Medicine
DX: F29 Unspecified psychosis not due to a substance or known physiological condition (principal); F41.9 Anxiety disorder, unspecified; Z79.899 Other long term (current) drug therapy
CPT/HCPCS: 85025

== ENCOUNTER → 2025-05-12 | Outpatient (CLI) | payer MEDICARE, MEDICAID, SELFPAY ==
[2025-05-12 09:26] LABS: Hematocrit 44.8 % (40-54); Hemoglobin 15.0 g/dL (13.0-16.5); Immature Granulocytes Count 0.040 X10^3/uL (0.0-0.0); Mean Corp Hgb Conc 33.5 g/dL (32-36); Mean Corpuscular Volume 88.9 fL (80-94); Mean Platelet Vol. 10.4 fl (6.2-12.0); NRBC Flagged by Analyzer 0 % (0-5); Platelet Count 223 K/mm3 (150-450); RBC Distribution Width CV 12.4 % (11.6-14.6); RBC Distribution Width SD 40.6 fl (35.1-43.9); Red Blood Count 5.04 M/mm3 (4.6-6.2); White Blood Count 4.7 K/mm3 (4.4-11.0)
== END | disposition home or self-care (01) ==
LOC: LABSPEC 08:22
PROVIDERS: PCP Family Medicine; Referring Provider Family Medicine; Visit Provider Family Medicine
DX: F29 Unspecified psychosis not due to a substance or known physiological condition (principal)
CPT/HCPCS: 85025

== ENCOUNTER 2025-06-22 07:40 | Outpatient (RCR) | payer MEDICARE, MEDICAID, SELFPAY ==
[2025-05-26 11:49] LABS: Hematocrit 39.6 % (40-54); Hemoglobin 12.9 g/dL (13.0-16.5); Immature Granulocytes Count 0.010 X10^3/uL (0.0-0.0); Mean Corp Hgb Conc 32.6 g/dL (32-36); Mean Corpuscular Volume 89.0 fL (80-94); Mean Platelet Vol. 11.2 fl (6.2-12.0); NRBC Flagged by Analyzer 0 % (0-5); Platelet Count 198 K/mm3 (150-450); RBC Distribution Width CV 12.8 % (11.6-14.6); RBC Distribution Width SD 41.2 fl (35.1-43.9); Red Blood Count 4.45 M/mm3 (4.6-6.2); White Blood Count 4.6 K/mm3 (4.4-11.0)
[2025-06-08 12:13] LABS: Hematocrit 47.5 % (40-54); Hemoglobin 15.4 g/dL (13.0-16.5); Immature Granulocytes Count 0.030 X10^3/uL (0.0-0.0); Mean Corp Hgb Conc 32.4 g/dL (32-36); Mean Corpuscular Volume 90.6 fL (80-94); Mean Platelet Vol. 11.5 fl (6.2-12.0); NRBC Flagged by Analyzer 0 % (0-5); Platelet Count 178 K/mm3 (150-450); RBC Distribution Width CV 13.1 % (11.6-14.6); RBC Distribution Width SD 43.5 fl (35.1-43.9); Red Blood Count 5.24 M/mm3 (4.6-6.2); White Blood Count 4.4 K/mm3 (4.4-11.0)
[2025-06-22 08:50] LABS: Hematocrit 46.8 % (40-54); Hemoglobin 15.5 g/dL (13.0-16.5); Immature Granulocytes Count 0.020 X10^3/uL (0.0-0.0); Mean Corp Hgb Conc 33.1 g/dL (32-36); Mean Corpuscular Volume 88.6 fL (80-94); Mean Platelet Vol. 10.8 fl (6.2-12.0); NRBC Flagged by Analyzer 0 % (0-5); Platelet Count 197 K/mm3 (150-450); RBC Distribution Width CV 13.2 % (11.6-14.6); RBC Distribution Width SD 43.1 fl (35.1-43.9); Red Blood Count 5.28 M/mm3 (4.6-6.2); White Blood Count 5.6 K/mm3 (4.4-11.0)
== END 2025-06-23 23:59 ==
LOC: LABSPEC 07:40
PROVIDERS: PCP Family Medicine; Referring Provider Family Medicine; Visit Provider Family Medicine
DX: F29 Unspecified psychosis not due to a substance or known physiological condition (principal)
CPT/HCPCS: 85025

== ENCOUNTER 2025-07-21 08:45 | Outpatient (RCR) | payer MEDICARE, MEDICAID, SELFPAY ==
[2025-07-06 11:01] LABS: Hematocrit 45.2 % (40-54); Hemoglobin 14.9 g/dL (13.0-16.5); Mean Corp Hgb Conc 33.0 g/dL (32-36); Mean Corpuscular Volume 89.5 fL (80-94); Mean Platelet Vol. 11.3 fl (6.2-12.0); Platelet Count 184 K/mm3 (150-450); RBC Distribution Width CV 13.5 % (11.6-14.6); RBC Distribution Width SD 43.8 fl (35.1-43.9); Red Blood Count 5.05 M/mm3 (4.6-6.2); White Blood Count 3.8 K/mm3 (4.4-11.0)
[2025-07-21 09:01] LABS: Hematocrit 46.1 % (40-54); Hemoglobin 15.4 g/dL (13.0-16.5); Immature Granulocytes Count 0.020 X10^3/uL (0.0-0.0); Mean Corp Hgb Conc 33.4 g/dL (32-36); Mean Corpuscular Volume 89.3 fL (80-94); Mean Platelet Vol. 10.6 fl (6.2-12.0); NRBC Flagged by Analyzer 0 % (0-5); Platelet Count 182 K/mm3 (150-450); RBC Distribution Width CV 13.3 % (11.6-14.6); RBC Distribution Width SD 43.6 fl (35.1-43.9); Red Blood Count 5.16 M/mm3 (4.6-6.2); White Blood Count 4.7 K/mm3 (4.4-11.0)
== END 2025-07-24 23:59 ==
LOC: LABSPEC 08:45
PROVIDERS: PCP Family Medicine; Referring Provider Family Medicine; Visit Provider Registered Nurse
DX: F29 Unspecified psychosis not due to a substance or known physiological condition (principal)
CPT/HCPCS: 85025; 85027

== ENCOUNTER 2025-08-18 07:35 | Outpatient (RCR) | payer MEDICARE, MEDICAID, SELFPAY ==
[2025-08-06 10:33] LABS: Hematocrit 42.2 % (40-54); Hemoglobin 14.3 g/dL (13.0-16.5); Immature Granulocytes Count 0.030 X10^3/uL (0.0-0.0); Mean Corp Hgb Conc 33.9 g/dL (32-36); Mean Corpuscular Volume 89.0 fL (80-94); Mean Platelet Vol. 11.0 fl (6.2-12.0); NRBC Flagged by Analyzer 0 % (0-5); Platelet Count 190 K/mm3 (150-450); RBC Distribution Width CV 13.4 % (11.6-14.6); RBC Distribution Width SD 43.7 fl (35.1-43.9); Red Blood Count 4.74 M/mm3 (4.6-6.2); White Blood Count 9.1 K/mm3 (4.4-11.0)
[2025-08-18 08:43] LABS: Hematocrit 43.7 % (40-54); Hemoglobin 15.2 g/dL (13.0-16.5); Immature Granulocytes Count 0.020 X10^3/uL (0.0-0.0); Mean Corp Hgb Conc 34.8 g/dL (32-36); Mean Corpuscular Volume 88.3 fL (80-94); Mean Platelet Vol. 10.8 fl (6.2-12.0); NRBC Flagged by Analyzer 0 % (0-5); Platelet Count 194 K/mm3 (150-450); RBC Distribution Width CV 13.4 % (11.6-14.6); RBC Distribution Width SD 43.2 fl (35.1-43.9); Red Blood Count 4.95 M/mm3 (4.6-6.2); White Blood Count 4.7 K/mm3 (4.4-11.0)
== END 2025-08-23 23:59 ==
LOC: LABSPEC 07:35
PROVIDERS: Registered Nurse; PCP Family Medicine; Referring Provider Family Medicine; Visit Provider Family Medicine
DX: F29 Unspecified psychosis not due to a substance or known physiological condition (principal)
CPT/HCPCS: 85025

== ENCOUNTER 2025-09-14 08:41 | Outpatient (RCR) | payer MEDICARE, MEDICAID, SELFPAY ==
[2025-09-03 09:23] LABS: Hematocrit 43.0 % (40-54); Hemoglobin 14.5 g/dL (13.0-16.5); Mean Corp Hgb Conc 33.7 g/dL (32-36); Mean Corpuscular Volume 89.2 fL (80-94); Mean Platelet Vol. 11.1 fl (6.2-12.0); Platelet Count 157 K/mm3 (150-450); RBC Distribution Width CV 13.2 % (11.6-14.6); RBC Distribution Width SD 43.2 fl (35.1-43.9); Red Blood Count 4.82 M/mm3 (4.6-6.2); White Blood Count 5.0 K/mm3 (4.4-11.0)
[2025-09-14 08:48] LABS: Hematocrit 43.5 % (40-54); Hemoglobin 14.8 g/dL (13.0-16.5); Mean Corp Hgb Conc 34.0 g/dL (32-36); Mean Corpuscular Volume 88.2 fL (80-94); Mean Platelet Vol. 10.8 fl (6.2-12.0); Platelet Count 157 K/mm3 (150-450); RBC Distribution Width CV 13.1 % (11.6-14.6); RBC Distribution Width SD 42.6 fl (35.1-43.9); Red Blood Count 4.93 M/mm3 (4.6-6.2); White Blood Count 6.1 K/mm3 (4.4-11.0)
== END 2025-09-23 23:59 ==
LOC: LABSPEC 08:41
PROVIDERS: PCP Family Medicine; Referring Provider Family Medicine; Visit Provider Family Medicine
DX: F29 Unspecified psychosis not due to a substance or known physiological condition (principal)
CPT/HCPCS: 85027